=== PATIENT | male | born 1950 | race Caucasian/White ===

== ENCOUNTER → 2016-07-31 | Outpatient (REF) | payer MEDICAID, OTHER | LOC: M LAB REF 12:57 | PROVIDERS: ATTEND Podiatrist Foot & Ankle Surgery | DX: L03.116 Cellulitis of left lower limb (principal) ==

== ENCOUNTER → 2016-08-08 | Outpatient (REF) | payer OTHER | LOC: M SFHCPLAZ 09:15 | PROVIDERS: ATTEND Surgery | DX: E11.621 Type 2 diabetes mellitus with foot ulcer (principal) ==

== ENCOUNTER 2016-08-10 14:24 | Emergency (ER) | payer OTHER ==
--- NOTE | 2016-08-10 16:10 | EDDOCDS ---
Nurse's Notes [facility] Name: Yong Khoury Age: 65 yrs Sex: Male : 1950 Arrival Date: 08/10/2016 Time: 14:24 Bed TR7 Private MD: Ernst Choe Diagnosis: Local infection of the skin and subcutaneous tissue, unspecified-Right Foot Presentation: 08/10 14:32 Presenting complaint: Patient states: Here to remove wound packing. R foot wound rs3 packing done by Dr. Lane on Thursday. He instructed him to remove packing in 2 days. Adult Sepsis Screening: The patient does not have new or worsening altered mentation. Patient's respiratory rate is less than 22. Systolic blood pressure is greater than 100. Patient has a qSOFA score of 0- Negative Sepsis Screen. Suicide/Homicide risk assessment- the patient denies having any suicidal and/or homicidal ideations and does not present with any other emotional, behavioral or mental health complaints. Status: Patient is not a tax services specialist or dependent. Transition of care: patient was not received from another setting of care. 14:32 Acuity: DAISY Level 4 rs3 14:32 Method Of Arrival: Walkin/Carried/Asstd rs3 Triage Assessment: 14:36 General: Appears in no apparent distress. Pain: Location: right foot. HIV screening NA rs3 for this visit Offered previously. Historical: - Allergies: Ibuprofen (Rash); Strawberries; - Home Meds: 1. atorvastatin 80 mg oral tab 1 tab once daily 2. amlodipine 2.5 mg Oral tab 1 tab once daily 3. metformin 500 mg Oral Tb24 1 tab 2 times per day 4. trazodone 50 mg Oral tab nightly 5. aspirin 325 mg Oral tab once daily 6. gabapentin 300 mg Oral tab three times a day - PMHx: Diabetes - NIDDM: controlled; neuropathy; Hypertension; Right foot osteonecrosis; - PSHx: Right inguinal hernia repair; Tonsillectomy; - Social history: Smoking status: Patient uses tobacco products, heavy tobacco smoker. No barriers to communication noted, The patient speaks fluent Greenlandic. - : The pt / caregiver states he / she is not on anticoagulants. Home medication list is obtained from the patient. - Exposure Risk Screening:: None identified. Screenin:07 Screening information is obtained from the patient. Fall risk: At risk due to gait jjr disturbance, The following interventions are performed due to a positive Fall Risk Screen: added to special handling. Assistance ADL's: requires no assistance with activities of daily living. Abuse/DV Screen: The patient / caregiver reports he/she is: not in a situation that causes fear, pain or injury. Nutritional screening: No deficits noted. Advance Directives: Further advance directive information is declined. home support is adequate. Assessment: 15:57 General: Appears in no apparent distress, Behavior is appropriate for age, 1 cm x 0.5 jjr cm open wound on lateral side of right foot near fifth toe, entire foot swollen with 1+ edema, no red streaking noted. Vital Signs: 14:26 BP 148 / 66; Pulse 75; Resp 18 S; Temp 98.3(O); Pulse Ox 99% on R/A; Weight 68.04 kg dd6 (R); Height 5 ft. 3 in. (160.02 cm) (R); 14:26 Body Mass Index 26.57 (68.04 kg, 160.02 cm) dd6 Vitals: 14:26 Log In Time: August 10, 2016 at 14:24. dd6 ED Course: 14:25 Patient visited by Shiva Herzog PCA. dd6 14:25 Ernst Choe MD is Private Physician. dd6 14:25 Patient moved to Waiting dd6 14:28 Patient moved to Pre RCE dd6 14:35 Triage Initiated rs3 15:35 Patient moved to Triage 2 ar3 15:44 [facility] ef1 15:44 Liliya Mitchell MD is Attending Physician. ef1 15:44 Patient visited by Sharon Yang PA-C. ef1 15:58 The patient / caregiver is instructed regarding the plan of care and ED course. jjr 15:59 Ernst Choe MD is Referral Physician. ef1 16:05 Patient moved to TR7 ar3 16:07 [facility] Payment Agreement was scanned into [employer] and attached to record. ks16 16:08 No IV's were initiated during this patient's visit. No procedures done that require jjr assistance. Order Results: There are currently no results for this order. Outcome: 15:59 Discharge ordered by Provider. ef1 16:08 Discharge Assessment: patient administered narcotics - no. The following High Risk jjr Discharge criteria are identified: None. Discharged to home ambulatory. Condition: stable. Discharge instructions given to patient, Instructed on discharge instructions, follow up and referral plans. Demonstrated understanding of instructions. No special radiology studies were completed. Property sent home with patient. 16:09 Patient left the ED. jjr Signatures: Марина Raman RN RN jjr Shiva Herzog, SALES STORE CHECKER SALES STORE CHECKER dd6 Sharon Yang PA-C PA-C ef1 Monica Paiz RN RN rs3 Pippa Canas, SALES STORE CHECKER SALES STORE CHECKER ar3 Sue Cesar, Reg Reg ks16 MTDD
--- NOTE | 2016-08-10 16:10 | EDDOCDS ---
Physician Documentation [facility] Name: Yong Khoury Age: 65 yrs Sex: Male : 1950 Arrival Date: 08/10/2016 Time: 14:24 Bed TR7 Private MD: Ernst Choe Disposition: 08/10/16 15:59 Discharged to Home/Self Care. Impression: Local infection of the skin and subcutaneous tissue, unspecified - Right Foot. - Condition is Stable. - Medication Reconciliation, Local Pharmacy Hours form. - Follow up: Ernst Choe; When: 1 - 2 days; Reason: Recheck today's complaints, Continuance of care. Follow up: Emergency Department; Reason: Worsening of conditions. - Problem is new. - Symptoms have improved. Historical: - Allergies: Ibuprofen (Rash); Strawberries; - Home Meds: 1. atorvastatin 80 mg oral tab 1 tab once daily 2. amlodipine 2.5 mg Oral tab 1 tab once daily 3. metformin 500 mg Oral Tb24 1 tab 2 times per day 4. trazodone 50 mg Oral tab nightly 5. aspirin 325 mg Oral tab once daily 6. gabapentin 300 mg Oral tab three times a day - PMHx: Diabetes - NIDDM: controlled; neuropathy; Hypertension; Right foot osteonecrosis; - PSHx: Right inguinal hernia repair; Tonsillectomy; - Social history: Smoking status: Patient uses tobacco products, heavy tobacco smoker. No barriers to communication noted, The patient speaks fluent Wolof. - : The pt / caregiver states he / she is not on anticoagulants. Home medication list is obtained from the patient. - Exposure Risk Screening:: None identified. Vital Signs: 08/10 14:26 BP 148 / 66; Pulse 75; Resp 18 S; Temp 98.3(O); Pulse Ox 99% on R/A; Weight 68.04 kg / dd6 150 lbs (R); Height 5 ft. 3 in. (160.02 cm) (R); 14:26 Body Mass Index 26.57 (68.04 kg, 160.02 cm) dd6 MDM: 16:00 ECG WITH READING ER PHYS+CARDIAG ordered. EDMS 16:02 Dressing ordered. ef1 16:02 Misc. Nursing Order ordered. ef1 16:05 Financial registration complete. ks16 16:07 [facility] Payment Agreement was scanned into [employer] and attached to record. ks16 Signatures: Dispatcher [employer] Марина Wylie RN RN Sharon Rankin, NETO DUQUE ef1 Monica Paiz RN RN rs3 Sue Cesar, Reg Reg ks16 The chart was reviewed and I authenticate all verbal orders and agree with the evaluation and treatment provided.Attachments: 16:07 [facility] Payment Agreement ks16 MTDD
--- NOTE | 2016-08-12 17:11 | EDDOCDS ---
Nurse's Notes [facility] Name: Yong Khoury Age: 65 yrs Sex: Male : 1950 Arrival Date: 08/10/2016 Time: 14:24 Bed TR7 Private MD: Ernst Choe Diagnosis: Local infection of the skin and subcutaneous tissue, unspecified-Right Foot Presentation: 08/10 14:32 Presenting complaint: Patient states: Here to remove wound packing. R foot wound rs3 packing done by Dr. Lane on Thursday. He instructed him to remove packing in 2 days. Adult Sepsis Screening: The patient does not have new or worsening altered mentation. Patient's respiratory rate is less than 22. Systolic blood pressure is greater than 100. Patient has a qSOFA score of 0- Negative Sepsis Screen. Suicide/Homicide risk assessment- the patient denies having any suicidal and/or homicidal ideations and does not present with any other emotional, behavioral or mental health complaints. 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 Transition of care: patient was not received from another setting of care. 14:32 Acuity: DAISY Level 4 rs3 14:32 Method Of Arrival: Walkin/Carried/Asstd rs3 Triage Assessment: 14:36 General: Appears in no apparent distress. Pain: Location: right foot. HIV screening NA rs3 for this visit Offered previously. Historical: - Allergies: Ibuprofen (Rash); Strawberries; - Home Meds: 1. atorvastatin 80 mg oral tab 1 tab once daily 2. amlodipine 2.5 mg Oral tab 1 tab once daily 3. metformin 500 mg Oral Tb24 1 tab 2 times per day 4. trazodone 50 mg Oral tab nightly 5. aspirin 325 mg Oral tab once daily 6. gabapentin 300 mg Oral tab three times a day - PMHx: Diabetes - NIDDM: controlled; neuropathy; Hypertension; Right foot osteonecrosis; - PSHx: Right inguinal hernia repair; Tonsillectomy; - Social history: Smoking status: Patient uses tobacco products, heavy tobacco smoker. No barriers to communication noted, The patient speaks fluent Bulgarian. - : The pt / caregiver states he / she is not on anticoagulants. Home medication list is obtained from the patient. - Exposure Risk Screening:: None identified. Screenin:07 Screening information is obtained from the patient. Fall risk: At risk due to gait jjr disturbance, The following interventions are performed due to a positive Fall Risk Screen: added to special handling. Assistance ADL's: requires no assistance with activities of daily living. Abuse/DV Screen: The patient / caregiver reports he/she is: not in a situation that causes fear, pain or injury. Nutritional screening: No deficits noted. Advance Directives: Further advance directive information is declined. home support is adequate. Assessment: 15:57 General: Appears in no apparent distress, Behavior is appropriate for age, 1 cm x 0.5 jjr cm open wound on lateral side of right foot near fifth toe, entire foot swollen with 1+ edema, no red streaking noted. Vital Signs: 14:26 BP 148 / 66; Pulse 75; Resp 18 S; Temp 98.3(O); Pulse Ox 99% on R/A; Weight 68.04 kg dd6 (R); Height 5 ft. 3 in. (160.02 cm) (R); 14:26 Body Mass Index 26.57 (68.04 kg, 160.02 cm) dd6 Vitals: 14:26 Log In Time: August 10, 2016 at 14:24. dd6 ED Course: 14:25 Patient visited by Shiva Herzog PCA. dd6 14:25 Ernst Choe MD is Private Physician. dd6 14:25 Patient moved to Waiting dd6 14:28 Patient moved to Pre RCE dd6 14:35 Triage Initiated rs3 15:35 Patient moved to Triage 2 ar3 15:44 [facility] ef1 15:44 Liliya Mitchell MD is Attending Physician. ef1 15:44 Patient visited by Sharon Yang PA-C. ef1 15:58 The patient / caregiver is instructed regarding the plan of care and ED course. jjr 15:59 Ernst Choe MD is Referral Physician. ef1 16:05 Patient moved to TR7 ar3 16:07 [facility] Payment Agreement was scanned into [employer] and attached to record. ks16 16:08 No IV's were initiated during this patient's visit. No procedures done that require jjr assistance. 22:38 T-Sheet-- Draft Copy was scanned into [employer] and attached to record. klr Order Results: There are currently no results for this order. Outcome: 15:59 Discharge ordered by Provider. ef1 16:08 Discharge Assessment: patient administered narcotics - no. The following High Risk jjr Discharge criteria are identified: None. Discharged to home ambulatory. Condition: stable. Discharge instructions given to patient, Instructed on discharge instructions, follow up and referral plans. Demonstrated understanding of instructions. No special radiology studies were completed. Property sent home with patient. 16:09 Patient left the ED. jjr Signatures: Марина Raman, RN RN jjr Shiva Herzog, PROPERTY PRESERVATION SPECIALIST PROPERTY PRESERVATION SPECIALIST dd6 Sharon Yang PAAustin PA-C ef1 Monica Paiz RN RN rs3 Pippa Canas, PROPERTY PRESERVATION SPECIALIST PROPERTY PRESERVATION SPECIALIST ar3 Sue Cesar, Reg Reg ks16 Josee Crook Chart Complete MTDD
--- NOTE | 2016-08-12 17:11 | EDDOCDS ---
Physician Documentation [facility] Name: Yong Khoury Age: 65 yrs Sex: Male : 1950 Arrival Date: 08/10/2016 Time: 14:24 Bed TR7 Private MD: Ernst Choe Disposition: 08/10/16 15:59 Discharged to Home/Self Care. Impression: Local infection of the skin and subcutaneous tissue, unspecified - Right Foot. - Condition is Stable. - Medication Reconciliation, Local Pharmacy Hours form. - Follow up: Ernst Choe; When: 1 - 2 days; Reason: Recheck today's complaints, Continuance of care. Follow up: Emergency Department; Reason: Worsening of conditions. - Problem is new. - Symptoms have improved. Historical: - Allergies: Ibuprofen (Rash); Strawberries; - Home Meds: 1. atorvastatin 80 mg oral tab 1 tab once daily 2. amlodipine 2.5 mg Oral tab 1 tab once daily 3. metformin 500 mg Oral Tb24 1 tab 2 times per day 4. trazodone 50 mg Oral tab nightly 5. aspirin 325 mg Oral tab once daily 6. gabapentin 300 mg Oral tab three times a day - PMHx: Diabetes - NIDDM: controlled; neuropathy; Hypertension; Right foot osteonecrosis; - PSHx: Right inguinal hernia repair; Tonsillectomy; - Social history: Smoking status: Patient uses tobacco products, heavy tobacco smoker. No barriers to communication noted, The patient speaks fluent Lithuanian. - : The pt / caregiver states he / she is not on anticoagulants. Home medication list is obtained from the patient. - Exposure Risk Screening:: None identified. Vital Signs: 08/10 14:26 BP 148 / 66; Pulse 75; Resp 18 S; Temp 98.3(O); Pulse Ox 99% on R/A; Weight 68.04 kg / dd6 150 lbs (R); Height 5 ft. 3 in. (160.02 cm) (R); 14:26 Body Mass Index 26.57 (68.04 kg, 160.02 cm) dd6 MDM: 16:00 ECG WITH READING ER PHYS+CARDIAG ordered. EDMS 16:02 Dressing ordered. ef1 16:02 Misc. Nursing Order ordered. ef1 16:05 Financial registration complete. ks16 16:07 [facility] Payment Agreement was scanned into [employer] and attached to record. ks16 22:38 T-Sheet-- Draft Copy was scanned into [employer] and attached to record. klr Signatures: Dispatcher [employer] Марина Wylie, Sharon Garces RN, PAAustin PAAustin ef1 Monica Paiz RN RN rs3 Sue Cesar, Reg Reg ks16 Josee Crook klr The chart was reviewed and I authenticate all verbal orders and agree with the evaluation and treatment provided.Attachments: 16:07 [facility] Payment Agreement ks16 22:38 T-Sheet-- Draft Copy klr Chart Complete MTDD
--- NOTE | 2016-08-12 17:11 | EDDOCDS ---
Physician Documentation [facility] Name: Yong Khoury Age: 65 yrs Sex: Male : 1950 Arrival Date: 08/10/2016 Time: 14:24 Bed TR7 Private MD: Ernst Choe Disposition: 08/10/16 15:59 Discharged to Home/Self Care. Impression: Local infection of the skin and subcutaneous tissue, unspecified - Right Foot. - Condition is Stable. - Medication Reconciliation, Local Pharmacy Hours form. - Follow up: Ernst Choe; When: 1 - 2 days; Reason: Recheck today's complaints, Continuance of care. Follow up: Emergency Department; Reason: Worsening of conditions. - Problem is new. - Symptoms have improved. Historical: - Allergies: Ibuprofen (Rash); Strawberries; - Home Meds: 1. atorvastatin 80 mg oral tab 1 tab once daily 2. amlodipine 2.5 mg Oral tab 1 tab once daily 3. metformin 500 mg Oral Tb24 1 tab 2 times per day 4. trazodone 50 mg Oral tab nightly 5. aspirin 325 mg Oral tab once daily 6. gabapentin 300 mg Oral tab three times a day - PMHx: Diabetes - NIDDM: controlled; neuropathy; Hypertension; Right foot osteonecrosis; - PSHx: Right inguinal hernia repair; Tonsillectomy; - Social history: Smoking status: Patient uses tobacco products, heavy tobacco smoker. No barriers to communication noted, The patient speaks fluent Romanian. - : The pt / caregiver states he / she is not on anticoagulants. Home medication list is obtained from the patient. - Exposure Risk Screening:: None identified. Vital Signs: 08/10 14:26 BP 148 / 66; Pulse 75; Resp 18 S; Temp 98.3(O); Pulse Ox 99% on R/A; Weight 68.04 kg / dd6 150 lbs (R); Height 5 ft. 3 in. (160.02 cm) (R); 14:26 Body Mass Index 26.57 (68.04 kg, 160.02 cm) dd6 MDM: 16:00 ECG WITH READING ER PHYS+CARDIAG ordered. EDMS 16:02 Dressing ordered. ef1 16:02 Misc. Nursing Order ordered. ef1 16:05 Financial registration complete. ks16 16:07 [facility] Payment Agreement was scanned into [employer] and attached to record. ks16 22:38 T-Sheet-- Draft Copy was scanned into [employer] and attached to record. klr Signatures: Dispatcher [employer] Марина Wylie, Sharon Garces RN, PAAustin PAAustin ef1 Monica Paiz RN RN rs3 Sue Cesar, Reg Reg ks16 Josee Crook klr The chart was reviewed and I authenticate all verbal orders and agree with the evaluation and treatment provided.Attachments: 16:07 [facility] Payment Agreement ks16 22:38 T-Sheet-- Draft Copy klr Chart Complete MTDD
== END 2016-08-10 16:09 | disposition home or self-care (01) ==
LOC: M ED 14:24
DX: Z48.00 Encounter for change or removal of nonsurgical wound dressing (principal); L08.9 Local infection of the skin and subcutaneous tissue, unspecified; E11.9 Type 2 diabetes mellitus without complications; G62.9 Polyneuropathy, unspecified; I10 Essential (primary) hypertension; M87.874 Other osteonecrosis, right foot; Z79.899 Other long term (current) drug therapy; Z79.84 Long term (current) use of oral hypoglycemic drugs; Z79.82 Long term (current) use of aspirin; Z88.6 Allergy status to analgesic agent; Z91.018 Allergy to other foods; F17.210 Nicotine dependence, cigarettes, uncomplicated

== ENCOUNTER → 2016-08-15 | Outpatient (REF) | payer OTHER, MEDICAID ==
[2016-08-15 17:14] LABS: ALBUMIN 4.3 GM/DL (3.2-5.2); ALKALINE PHOSPHATASE 67 U/L (45-117); ALT/SGPT 29 U/L (12-78); ANION GAP 5 MEQ/L (8-16); AST/SGOT 18 U/L (15-37); BILIRUBIN,TOTAL 0.3 MG/DL (0.2-1.0); BLOOD UREA NITROGEN 18 MG/DL (7-18); CALCIUM LEVEL 10.1 MG/DL (8.8-10.2); CARBON DIOXIDE LEVEL 30 MEQ/L (21-32); CHLORIDE LEVEL 106 MEQ/L (98-107); CREATININE FOR GFR 0.91 MG/DL (0.70-1.30); GLOMERULAR FILTRATION RATE > 60.0 (>49); GLUCOSE, FASTING 111 MG/DL (80-110); SODIUM LEVEL 141 MEQ/L (136-145); TOTAL PROTEIN 7.6 GM/DL (6.4-8.2)
[2016-08-15 17:40] LABS: POTASSIUM SERUM 5.5 MEQ/L (3.5-5.1)
[2016-08-15 18:20] LABS: MEAN CORPUSCULAR HGB CONC 31.9 g/dl (32.0-36.5); MEAN CORPUSCULAR VOLUME 87.8 fl (80.0-96.0); RED CELL DISTRIBUTION WIDTH 14.8 % (11.5-14.5); WHITE BLOOD COUNT 9.7 K/mm3 (4.0-10.0)
== END ==
LOC: M LAB REF 16:45
PROVIDERS: ATTEND Surgery
DX: E11.621 Type 2 diabetes mellitus with foot ulcer (principal)

== ENCOUNTER → 2016-08-18 | Outpatient (CLI) | payer OTHER ==
--- NOTE | 2016-08-18 13:43 | ECGEPIP ---
Stationary ECG Study [facility] Test Date: 2016-08-18 Pat Name: JORDAN MCKEON Department: Room: - Gender: M Member Of Parliament: : 1950 Requested By: Barron Og Order Number: [id number] Reading MD: Viviana Corea Measurements Intervals [place] Rate: 78 P: 62 CO: 128 QRS: 71 QRSD: 101 T: 46 QT: 356 QTc: 407 Interpretive Statements SINUS RHYTHM sTABLE C/W 04/15/16 Electronically Signed On 08-18-2016 13:42:56 EST by Viviana Corea
--- NOTE | 2016-08-19 03:03 | REP ---
Clinical: Chest pain with history of smoking. Technique: PA and lateral. Comparison: None. Findings: A vague area of opacity involving the right middle lobe/medial right lower lobe cannot be excluded. The remainder of lung hallman demonstrate chronic-appearing changes. Surgical clips overlie the right upper lung zone. Mediastinum and cardiac silhouette are normal. Skeletal structures are intact. Impression: Cannot exclude subtle medial right lower lobe/right middle lobe opacity. Consider chest CT for further investigation. Signed by Stephen Pierce MD 08/19/2016 02:54 A
== END ==
LOC: M EKG 12:25
PROVIDERS: ATTEND Surgery
DX: F17.200 Nicotine dependence, unspecified, uncomplicated (principal)

== ENCOUNTER → 2016-09-04 | Outpatient (CLI) | payer OTHER ==
[~2016-09-04] MED LIST: ISOVUE-370 76% 100ML VIAL (Q9967) As Ordered ONE
--- NOTE | 2016-09-04 09:19 | REP ---
CT ANGIOGRAM ABDOMINAL ARTERIES AND RUNOFF: 09/04/2016, Comparison: 04/17/2016. Clinical history: Osteomyelitis right fifth toe with axillary-femoral artery bypass. Peripheral vascular disease. Technique: Bolus of 100 mL Isovue 370 with scanning through the abdomen, pelvis and lower extremities. Coronal and sagittal reconstructions with MIP thick slab reformats also performed. Findings: CT abdomen: The lung bases show some dependent atelectatic changes bilaterally. Heart unchanged. There is left atrial enlargement. No pericardial thickening or effusion. I see no hiatal hernia. There is no hepatosplenomegaly, focal hepatic or splenic mass nor intrahepatic biliary dilatation. Gallbladder is much better distended than on the previous study. There is an irregular 2.1 x 1.5 x 1.6 cm soft tissue density. This may be sludge or debris. The tiny calcification is seen in its margin at the wall, it could also be gallbladder wall mass. Common duct is mildly prominent in the arik hepatis and pancreatic head without a calcified stone within. It appears to taper normally. Pancreas intact. This is a cyst off the upper pole of the left kidney up to 2.5 cm, interpolar cyst left kidney 1.6 cm. No hydronephrosis. Small bowel loops and colon were grossly intact. I see no free air or perforation. Adrenal glands are unchanged. Small nodules on both about 12 mm on the left, 9 mm on the right. Bone windows show degenerative disc and facet changes lower lumbar spine. Thoracic spine with minor degenerative changes. Visualized ribs without destructive lesion. CT pelvis. Bladder shows no wall thickening, mass or stone. Prostate slightly indents the bladder base and is minimally enlarged. Distal left colon, sigmoid and rectum are unremarkable. Small bowel loops in the deep pelvis intact. The appendix is seen and normal. No bladder wall mass, stone or other acute finding. There is no ventral or inguinal hernia nor pathologic sized inguinal adenopathy. Since the previous study, there has been a right-sided axillary femoral and cross femoral bypass graft placed. Abundant contrast is seen within it. There is no inguinal adenopathy, inguinal or ventral hernia. The bony hips, pelvis, sacrum, SI joints show only minimal degenerative change without destructive lesion. CT aortogram: There is atherosclerotic calcification of the aorta with some mild distal stenosis at the bifurcation. The celiac axis and SMA show no stenosis at their origins. Renal artery shows some atherosclerotic plaque at the origin on the right and mid course of the left without significant stenosis. There is an MARNIE. There is atherosclerotic plaque and some stenosis of the common iliac artery on the right and tight stenosis of the common iliac artery on the left which is almost completely filled with plaque. This appearance is unchanged. There is flow in both internal iliac arteries, right more than left, unchanged. Common femoral arteries are tightly stenotic. The axillary femoral graft extends to the right common femoral artery. That artery is occluded with flow through collaterals via the profunda femoris reconstituting it weakly. Cross femoral graft extends to the left common femoral artery which has stenosis and plaque as does the profunda femoris artery. Lower extremity runoff arteriogram: Deep right thigh femoral branches poorly reconstitute the femoral artery in the right thigh distally at the popliteal artery. The posterior tibial artery is seen extending to the ankle with scattered plaques. Poor flow in the anterior tibial and almost no flow in the peroneal artery. The left thigh shows a patent femoral artery, popliteal artery to the trifurcation. Flow to the ankle is reached by the posterior tibial artery on the left. Impression: 1. Axillary-femoral and cross femoral grafts noted. There is still significant stenosis of the right femoral artery with poor reconstitution distally at the popliteal not much changed from the previous study with runoff to the ankle through only the posterior tibial artery on the right. 2. Left femoral popliteal artery are patent with scattered atherosclerotic plaques and runoff to the ankle via a left posterior tibial artery as before. 3. Extensive atherosclerotic plaque distal aorta with occlusion of the common iliac artery and extensive atherosclerotic plaque. There is a significant stenosis without occlusion of the right common femoral artery. 4. The CT abdomen and pelvis images show potentially significant abnormality in the gallbladder which needs further evaluation. A 2 cm irregular soft tissue density in the dependent wall may be inspissated sludge but has irregular shape, and I cannot exclude a mass of the gallbladder wall. Gallbladder ultrasound strongly recommended. Malignancy is not excluded. Signed by Duglas Romero MD 09/04/2016 01:17 P
== END ==
LOC: M RAD 07:12
PROVIDERS: ATTEND Surgery
DX: M86.19 Other acute osteomyelitis, multiple sites (principal)

== ENCOUNTER → 2016-10-07 | Outpatient (CLI) | payer OTHER ==
--- NOTE | 2016-10-07 10:11 | REP ---
LIMITED ABDOMINAL ULTRASOUND: 10/07/2016. Comparison: CT abdomen 09/04/2016. Clinical history: Fundal filling defect in the gallbladder on recent CT. Findings: Sonographic evaluation shows the liver with fairly homogeneous hyperechoic echotexture suggesting fatty change. There is some focal fat sparing adjacent to the gallbladder fossa which is the usual location for that common finding. No gross hepatic mass. No intrahepatic ductal dilatation. Common bile duct is 8.9 mm which is in the upper range of normal in this age group. The gallbladder is adequately distended. There is a mobile echogenic focus 2.2 x 1.7 x 1.7 cm suggesting a sludge ball. It has some shadowing. Only a faint calcification within it on CT. Wall thickness is normal at 1.6 mm. There is no sonographic Will sign. Pancreas in its visualized portion was unremarkable. The tail obscured by gas shadowing. The right kidney is 11.6 x 5.2 x 5.5 cm. There is a upper pole cyst 2.9 x 2.4 x [address] No stones. There is no free fluid. Impression: 1. The irregular mobile echogenic and shadowing focus in the gallbladder 2.2 x 1.7 x 1.7 cm suggesting calcified or partially calcified sludge ball. This did not have typical rim calcification of a well-defined stone and had some irregular margins. 2. Sonographic Will sign is not present. There is no pericholecystic fluid or wall thickening. 3. Common bile duct 8.9 mm which is upper limits normal. No filling defect.4. Fatty liver change without focal mass or biliary dilatation. 5. Visualized portion of pancreas unremarkable. The right kidney shows only an exophytic cyst upper pole as on CT. Signed by Duglas Romero MD 10/07/2016 05:04 P
== END ==
LOC: M RAD 07:51
PROVIDERS: ATTEND Family Medicine
DX: R10.9 Unspecified abdominal pain (principal)

== ENCOUNTER → 2016-10-10 | Outpatient (REF) | payer OTHER, MEDICAID | LOC: M LAB REF 12:58 | PROVIDERS: ATTEND Surgery | DX: L97.519 Non-pressure chronic ulcer of other part of right foot with unspecified severity (principal) ==

== ENCOUNTER → 2016-10-16 | Outpatient (REF) | payer OTHER ==
[2016-10-16 15:39] LABS: BASO # 0.1 K/mm3 (0.0-0.2); BASO % 0.8 % (0.0-1.0); EOS # 0.3 K/mm3 (0.0-0.50); LARGE UNSTAINED CELL # 0.2 K/mm3 (0.0-0.4); LYMPH # 1.5 K/mm3 (1.5-4.5); MEAN CORPUSCULAR HEMOGLOBIN 29.6 pg (27.0-33.0); MEAN CORPUSCULAR HGB CONC 32.4 g/dl (32.0-36.5); MEAN CORPUSCULAR VOLUME 91.2 fl (80.0-96.0); MONO # 0.4 K/mm3 (0.0-0.8); MONO % 5.2 % (0.0-5.0); NEUTROPHILS % 70.9 % (36.0-66.0); PLATELET COUNT, AUTOMATED 223 k/mm3 (150-450); RED CELL DISTRIBUTION WIDTH 13.3 % (11.5-14.5); WHITE BLOOD COUNT 8.4 K/mm3 (4.0-10.0)
[2016-10-16 16:46] LABS: ERYTHROCYTE SEDIMENTATION RATE 19 mm/hr (0-20)
== END ==
LOC: M SFHCPLAZ 13:04
PROVIDERS: ATTEND Internal Medicine Infectious Disease
DX: M86.171 Other acute osteomyelitis, right ankle and foot (principal)

== ENCOUNTER → 2016-10-21 | Outpatient (CLI) | payer OTHER ==
--- NOTE | 2016-10-21 16:08 | REP ---
Right foot series: Two views: History: Acute osteomyelitis right ankle and foot. Comparison study: 04/15/2016. Findings: There is cortical bony erosive change again noted along the lateral aspect of the distal end of the fifth metatarsal consistent with osteomyelitis. This is somewhat more pronounced than on the 04/15/2016 prior study. Similarly, there is progressive erosive change at the base of the proximal phalanx of the 5th toe. Some adjacent soft tissue swelling and distal forefoot swelling is seen. No soft tissue gas is seen. No opaque foreign body is seen. Impression: Progressive erosive change in the distal end of the 5th metatarsal and in the proximal end of the 5th proximal phalanx. Findings compatible with osteomyelitis at these sites. Some soft tissue swelling. Signed by Santiago Chavez MD 10/21/2016 04:20 P
== END ==
LOC: M RAD 11:52
PROVIDERS: ATTEND Internal Medicine Infectious Disease
DX: M86.171 Other acute osteomyelitis, right ankle and foot (principal)

== ENCOUNTER → 2017-01-05 | Outpatient (REF) | payer OTHER ==
[2017-01-05 18:53] LABS: ANION GAP 7 MEQ/L (8-16); BLOOD UREA NITROGEN 16 MG/DL (7-18); CALCIUM LEVEL 9.7 MG/DL (8.8-10.2); CARBON DIOXIDE LEVEL 28 MEQ/L (21-32); CHLORIDE LEVEL 102 MEQ/L (98-107); CREATININE FOR GFR 0.99 MG/DL (0.70-1.30); GLOMERULAR FILTRATION RATE > 60.0 (>49); GLUCOSE, FASTING 81 MG/DL (80-110); POTASSIUM SERUM 4.4 MEQ/L (3.5-5.1); SODIUM LEVEL 137 MEQ/L (136-145)
== END ==
LOC: M SFHCPLAZ 15:21
PROVIDERS: ATTEND Family Medicine
DX: E11.42 Type 2 diabetes mellitus with diabetic polyneuropathy (principal)

== ENCOUNTER → 2017-02-03 | Outpatient (REF) | payer OTHER ==
[~2017-02-03] MED LIST changes: +ASPI325T24 PO; +ATOR80TA59 PO; +BACT800T5 PO; +GABA600T PO; +HYDR-3713 PO; -ISOVUE-370 76% 100ML VIAL (Q9967) As Ordered ONE; +METF10004 PO; +TERB250T12 PO; +TRAZ50TA11 PO; +TYLE500T78 PO
[2017-02-03 14:23] LABS: ALBUMIN 3.9 GM/DL (3.2-5.2); ALBUMIN/GLOBULIN RATIO 1.22 (1.00-1.93); BILIRUBIN,DIRECT 0.1 MG/DL (0.0-0.2); BILIRUBIN,TOTAL 0.3 MG/DL (0.2-1.0); TOTAL PROTEIN 7.1 GM/DL (6.4-8.2)
== END ==
LOC: M SFHCPLAZ 11:06
PROVIDERS: ATTEND Family Medicine
DX: B35.1 Tinea unguium (principal)

== ENCOUNTER → 2017-03-20 | Outpatient (REF) | payer OTHER ==
[2017-03-20 13:51] LABS: ALBUMIN 4.2 GM/DL (3.2-5.2); ALBUMIN/GLOBULIN RATIO 1.24 (1.00-1.93); ALKALINE PHOSPHATASE 94 U/L (45-117); ALT/SGPT 26 U/L (12-78); AST/SGOT 10 U/L (15-37); BILIRUBIN,DIRECT < 0.1 MG/DL (0.0-0.2); BILIRUBIN,TOTAL 0.3 MG/DL (0.2-1.0); CHOLESTEROL LEVEL 128 MG/DL (<200); TOTAL PROTEIN 7.6 GM/DL (6.4-8.2); TRIGLYCERIDES LEVEL 84 MG/DL (<150)
== END ==
LOC: M SFHCPLAZ 09:22
PROVIDERS: ATTEND Family Medicine
DX: I73.9 Peripheral vascular disease, unspecified (principal); B35.1 Tinea unguium

== ENCOUNTER → 2017-04-14 | Outpatient (CLI) | payer OTHER ==
[2017-04-14 09:50] LABS: MEAN CORPUSCULAR HEMOGLOBIN 29.4 pg (27.0-33.0); MEAN CORPUSCULAR HGB CONC 32.5 g/dl (32.0-36.5); MEAN CORPUSCULAR VOLUME 90.5 fl (80.0-96.0); RED CELL DISTRIBUTION WIDTH 13.8 % (11.5-14.5); WHITE BLOOD COUNT 10.1 10^3/uL (4.0-10.0)
[2017-04-14 11:14] LABS: ANION GAP 3 MEQ/L (8-16); BLOOD UREA NITROGEN 13 MG/DL (7-18); CALCIUM LEVEL 9.8 MG/DL (8.8-10.2); CARBON DIOXIDE LEVEL 31 MEQ/L (21-32); CHLORIDE LEVEL 105 MEQ/L (98-107); CREATININE FOR GFR 1.05 MG/DL (0.70-1.30); GLOMERULAR FILTRATION RATE > 60.0 (>49); GLUCOSE, FASTING 186 MG/DL (80-110); POTASSIUM SERUM 5.1 MEQ/L (3.5-5.1); SODIUM LEVEL 139 MEQ/L (136-145)
--- NOTE | 2017-04-14 11:16 | REP ---
CHEST X-RAY: TWO VIEWS. HISTORY: Preoperative testing. COMPARISON CHEST X-RAY: August 18, 2016 FINDINGS: There are surgical clips overlying the right anterior chest wall, unchanged. The lungs are well inflated and clear. Pleural angles are sharp. Heart size is normal. There are mild degenerative disc changes in the thoracic spine. IMPRESSION: No acute disease. Signed by Santiago Chavez MD 04/14/2017 03:30 P
--- NOTE | 2017-04-14 20:17 | ECGEPIP ---
Stationary ECG Study [facility] Test Date: 2017-04-14 Pat Name: JORDAN MCKEON Department: Room: - Gender: M Medical Practice Manager: : 1950 Requested By: ALONSO Pedraza Order Number: [id number] Reading MD: Yvonne Oneal Measurements Intervals [place] Rate: 67 P: 54 SC: 142 QRS: 57 QRSD: 94 T: 49 QT: 391 QTc: 415 Interpretive Statements SINUS RHYTHM POSSIBLE LEFT ATRIAL ENLARGEMENT NO CHANGE 08/18/16 Electronically Signed On 04-14-2017 20:17:15 EDT by Yvonne Oneal
== END ==
LOC: M LAB 09:18
PROVIDERS: ATTEND Podiatrist Foot & Ankle Surgery
DX: Z00.00 Encounter for general adult medical examination without abnormal findings (principal)

== ENCOUNTER → 2017-04-17 | Outpatient (REF) | payer OTHER ==
[2017-04-17 14:58] LABS: ALBUMIN 4.3 GM/DL (3.2-5.2); ALBUMIN/GLOBULIN RATIO 1.16 (1.00-1.93); BILIRUBIN,DIRECT 0.2 MG/DL (0.0-0.2); BILIRUBIN,TOTAL 0.5 MG/DL (0.2-1.0)
== END ==
LOC: M SFHCPLAZ 11:26
PROVIDERS: ATTEND Family Medicine
DX: B35.1 Tinea unguium (principal); E11.52 Type 2 diabetes mellitus with diabetic peripheral angiopathy with gangrene

== ENCOUNTER 2017-04-29 07:56 | Day surgery (SDC) | payer OTHER ==
[~2017-04-29] VITALS: Ht 160 cm; Wt 70.8 kg
[~2017-04-29 07:56] MED LIST changes: -BACT800T5 PO; -HYDR-3713 PO
[2017-04-29] MEDS ORDERED: dexameTHASONE 4 MG/ML 1ML VIAL (J1100) As Ordered ONE (07:58)
[2017-04-29] MEDS ORDERED: LIDOCAINE 1% MDV 20ML VIAL As Ordered ONE (07:58)
[2017-04-29] MEDS ORDERED: BUPIVACAINE HCL 0.5% 10 ML VIAL As Ordered ONE (07:59)
[2017-04-29] MEDS ORDERED: LR 500 ML IV ONE (08:00)
[2017-04-29] MEDS ORDERED: PROPOFOL 200 MG/20 ML VIAL As Ordered ONE (09:41)
[2017-04-29] MEDS ORDERED: LIDOCAINE 2% INJ 100 MG/5 ML SDV (FOR ANES.) As Ordered ONE (09:41)
[2017-04-29] MEDS ORDERED: MIDAZOLAM INJ 2 MG/2 ML VIAL (J2250) As Ordered ONE (09:42)
[2017-04-29] MEDS ORDERED: fentaNYL 100 MCG/2 ML INJECTION (J3010) As Ordered ONE (09:42)
[2017-04-29] MEDS ORDERED: BACT800T5 PO (11:07)
[2017-04-29] MEDS ORDERED: HYDR-3713 PO (11:07)
[2017-04-29] MEDS ORDERED: PERCOCET 5MG/325MG TAB PO PRN (11:30)
--- NOTE | 2017-04-29 12:15 | RO ---
DATE OF PROCEDURE: 04/29/2017 PREOPERATIVE DIAGNOSIS: Right 5th metatarsal osteomyelitis as well as osteomyelitis of the 5th toe. POSTOPERATIVE DIAGNOSIS: Right 5th metatarsal osteomyelitis as well as osteomyelitis of the 5th toe. PROCEDURE: Right 5th metatarsal head excision and excision of base of proximal phalanx. SURGEON: Dr. Alirio Goodwin CUT OFF SAWYER: None. ANESTHESIA: Monitored anesthesia care. Preoperative injection of 16 mL of 1:1 mixture of 1% lidocaine plain and 1/2% Marcaine plain. ESTIMATED BLOOD LOSS: Minimal. MATERIALS: #3-0 Vicryl, #4-0 nylon. INJECTABLES: None. COMPLICATIONS: None. CONDITION: Stable. SPECIMEN: Is right 5th metatarsal head and base of proximal phalanx. DESCRIPTION OF PROCEDURE: Yong Khoury is a 66-year-old male who presents today the hospital with ulceration and osteomyelitis to his right foot. He has had a longstanding ulceration adjacent to his right 5th metatarsal head. He had initially had improvement of the wound, but the wound has worsened and there has been bone exposed within this wound. X-rays were taken, which showed erosion of this bone. Decision was made to bring him to the operating room for excision of the metatarsal head. Patient site and side were identified and marked in preoperative holding area. Consent was reviewed and obtained. The risks, complications and alternatives to the procedure explained to patient in detail. Questions were answered. Patient was brought to the operating room and placed on the operating room in supine position. Monitored anesthesia care was delivered by the anesthesia team. Preoperative injection of 16 mL of 1:1 mixture of 1% lidocaine plain and 0.50% Marcaine plain were injected to the right foot. Right foot was prepped and draped in normal sterile fashion. Patient received Ancef preoperatively. A lateral incision was made surrounding the wound and extending into the base of the 5th toe, which was carried through with #15 blade. Dissection was carried down excising the wound in total and dissection was carried until the 5th metatarsal head was identified. This was noted to be exposed through the wound and to be soft in appearance at the most distal portion. A sagittal saw was used to resect the metatarsal head. The proximal part of the bone was firm without obvious signs of infection. The head of this bone was sent for pathology. Next, the base of the proximal phalanx was resected similarly with sagittal saw. This too was sent for pathology. Remaining necrotic tissue was debrided. Site was irrigated with saline and wound closure was performed with #3-0 Vicryl and #4-0 nylon. Sterile dressings were applied. Patient was brought to the postanesthesia care unit (PACU) with vital signs stable and neurovascular status intact. He will be weightbearing in a postoperative shoe with his walker. He will followup in office in 2 days. He will be discharged on oral Bactrim.
[2017-04-29 12:20] VITALS: BP 157/95
== END 2017-04-29 12:55 | disposition home or self-care (01) ==
LOC: M SDC 07:56
PROVIDERS: ATTEND Podiatrist Foot & Ankle Surgery
DX: M86.171 Other acute osteomyelitis, right ankle and foot (principal); E11.52 Type 2 diabetes mellitus with diabetic peripheral angiopathy with gangrene; L30.1 Dyshidrosis [pompholyx]; E78.5 Hyperlipidemia, unspecified; Z86.73 Personal history of transient ischemic attack (TIA), and cerebral infarction without residual deficits; Z79.899 Other long term (current) drug therapy; Z79.82 Long term (current) use of aspirin; Z87.891 Personal history of nicotine dependence

== ENCOUNTER → 2017-08-24 | Outpatient (REF) | payer OTHER ==
[2017-08-24 12:38] LABS: ESTIMATED AVERAGE GLUCOSE 157 MG/DL (60-110); HEMOGLOBIN A1c 7.1 %
[2017-08-24 12:41] LABS: ANION GAP 8 MEQ/L (8-16); BLOOD UREA NITROGEN 14 MG/DL (7-18); CALCIUM LEVEL 9.7 MG/DL (8.8-10.2); CARBON DIOXIDE LEVEL 29 MEQ/L (21-32); CHLORIDE LEVEL 105 MEQ/L (98-107); CHOLESTEROL LEVEL 95 MG/DL (<200); CHOLESTEROL RISK RATIO 2.065 (<5); CREATININE FOR GFR 1.11 MG/DL (0.70-1.30); GLOMERULAR FILTRATION RATE > 60.0 (>49); GLUCOSE, FASTING 243 MG/DL (70-100); HDL CHOLESTEROL 46 MG/DL (>40); NON-HDL-C 49 MG/DL; POTASSIUM SERUM 4.9 MEQ/L (3.5-5.1); SODIUM LEVEL 142 MEQ/L (136-145); TRIGLYCERIDES LEVEL 55 MG/DL (<150)
[2017-08-24 12:45] LABS: MALB URINE SIEMENS 37.5 MG/L
== END ==
LOC: M SFHCPLAZ 09:19
DX: E11.52 Type 2 diabetes mellitus with diabetic peripheral angiopathy with gangrene (principal); I73.9 Peripheral vascular disease, unspecified

== ENCOUNTER → 2017-11-30 | Outpatient (CLI) | payer MEDICARE, MEDICAID, OTHER | LOC: M RAD 08:23 | DX: I73.9 Peripheral vascular disease, unspecified (principal); Z87.891 Personal history of nicotine dependence | CPT/HCPCS: 76706 ==

== ENCOUNTER → 2018-03-11 | Outpatient (REF) | payer MEDICARE ==
[2018-03-11 13:29] LABS: ESTIMATED AVERAGE GLUCOSE 183 MG/DL (60-110)
[2018-03-12 12:38] LABS: HEPATITIS C VIRUS ABY INDEX 0.1 INDEX (<0.8)
== END ==
LOC: M SFHCPLAZ 11:39
DX: E11.52 Type 2 diabetes mellitus with diabetic peripheral angiopathy with gangrene (principal); Z11.59 Encounter for screening for other viral diseases
CPT/HCPCS: 83036

== ENCOUNTER → 2018-09-29 | Outpatient (CLI) | payer MEDICARE, MEDICAID ==
[~2018-09-29] MED LIST changes: -ASPI325T24 PO; +ASPI325T25 PO; +BACT800T5 PO; -GABA600T PO; +GABA600T4 PO; +HYDR-3713 PO; +TRAZ-160 PO; -TRAZ50TA11 PO
[2018-09-29 13:52] LABS: CREATININE FOR GFR 1.29 MG/DL (0.70-1.30); GLOMERULAR FILTRATION RATE 59.3 (>49)
== END ==
LOC: M LAB 12:20
PROVIDERS: ATTEND Surgery Vascular Surgery
DX: I70.235 Atherosclerosis of native arteries of right leg with ulceration of other part of foot (principal)

== ENCOUNTER → 2018-10-05 | Outpatient (CLI) | payer MEDICARE, MEDICAID ==
[2018-10-05 10:57] LABS: CREATININE FOR GFR 1.28 MG/DL (0.70-1.30); GLOMERULAR FILTRATION RATE 59.9 (>49)
== END ==
LOC: M LAB 09:30
PROVIDERS: ATTEND Surgery Vascular Surgery
DX: I70.513 Atherosclerosis of nonautologous biological bypass graft(s) of the extremities with intermittent claudication, bilateral legs (principal)

== ENCOUNTER → 2019-01-10 | Outpatient (REF) | payer MEDICARE ==
[~2019-01-10] MED LIST changes: +ASPI-255 PO; -ASPI325T25 PO; -TRAZ-160 PO; +TRAZ-252 PO
[2019-01-10 12:43] LABS: BLOOD UREA NITROGEN 22 MG/DL (7-18); CALCIUM LEVEL 9.4 MG/DL (8.8-10.2); CARBON DIOXIDE LEVEL 28 MEQ/L (21-32); CHLORIDE LEVEL 101 MEQ/L (98-107); CHOLESTEROL LEVEL 98 MG/DL (<200); CHOLESTEROL RISK RATIO 2.512 (<5); CREATININE FOR GFR 1.16 MG/DL (0.70-1.30); GLOMERULAR FILTRATION RATE > 60.0 (>49); GLUCOSE, FASTING 146 MG/DL (70-100); HDL CHOLESTEROL 39 MG/DL (>40); LDL CHOLESTEROL 45 MG/DL (<100); NON-HDL-C 59 MG/DL; POTASSIUM SERUM 4.4 MEQ/L (3.5-5.1); SODIUM LEVEL 137 MEQ/L (136-145); TRIGLYCERIDES LEVEL 68 MG/DL (<150)
[2019-01-10 12:57] LABS: HEMOGLOBIN A1c 8.8 %
[2019-01-10 14:19] LABS: CREATININE, URINE 91.4 MG/DL; MALB URINE SIEMENS 20.4 MG/L; MAU/CREAT RATIO 22.3 MCG/MG (0.0-30.0)
== END ==
LOC: M SFHCPLAZ 10:19
PROVIDERS: ATTEND Family Medicine
DX: E11.51 Type 2 diabetes mellitus with diabetic peripheral angiopathy without gangrene (principal); I73.9 Peripheral vascular disease, unspecified

== ENCOUNTER → 2019-02-28 | Outpatient (REF) | payer MEDICARE, MEDICAID | LOC: M LAB REF 17:21 | PROVIDERS: ATTEND Podiatrist Foot & Ankle Surgery | DX: L03.115 Cellulitis of right lower limb (principal) ==

== ENCOUNTER → 2019-03-02 | Outpatient (REF) | payer MEDICARE, MEDICAID ==
[~2019-03-02] MED LIST changes: +ASPI-161 PO; +ASPI81TAEC PO; +ATOR1TAB21 PO; +GABA-843 PO; +GLUC500T PO; +INSUDET SC; +KETO2SHA9 TOP; +LISI10TA4 PO; +NAPR220C14 PO; +NYST1POW9 TOP; +OXYC-517 PO; +SANT250O8 TOP; +TRAM50TA2 PO; +TRAZ-257 PO; +TRAZ1TAB12 PO
== END ==
LOC: M SFHCPLAZ 12:47
PROVIDERS: ATTEND Physician Assistant
DX: L97.519 Non-pressure chronic ulcer of other part of right foot with unspecified severity (principal)

== ENCOUNTER → 2019-03-08 | Outpatient (POV) | payer MEDICARE, MEDICAID ==
[~2019-03-08] VITALS: Ht 161.3 cm; Wt 68.0 kg
[2019-03-08 13:56] VITALS: BP 139/63
--- NOTE | 2019-03-09 10:41 | IRCOV ---
[facility] IR Consult Office Visit IR Consult Office Visit DATE: Mar 08, 2019 REASON FOR CONSULTATION/CHIEF COMPLAINT: Right Leg pain and ulcer right foot. HISTORY OF PRESENT ILLNESS: 68-year-old male smoker with diabetes and peripheral arterial disease status post axillofemoral bypass several years ago for nonhealing wounds. Presents with right leg pain and nonhealing ulcers for several months. Describes pain at rest. Doesn't walk much and denies intermitt ent claudication. Continues to smoke 2 cigarettes per day. Denies alcohol or drugs. Walks with a walker. No chest pain. No angina. No prior history of heart attacks. Has suffered a stroke and veers to the left when walking. ALLERGIES: Please see below. HOME MEDICATIONS: Please see below. PAST MEDICAL HISTORY: 1. Type 2 diabetes. 2. Hypertension. 3. Diabetic neuropathy. 4. Peripheral arterial disease. 5. Stroke. PAST SURGICAL HISTORY: 1. Axillofemoral bypass. FAMILY HISTORY: Coronary artery disease. SOCIAL HISTORY: Lives with a roommate. Somewhat independent with activities of daily living. REVIEW OF SYSTEMS: Otherwise negative. PHYSICAL EXAMINATION: VITAL SIGNS: Please see below. GENERAL APPEARANCE: Comfortable at rest. HEENT: No scleral icterus. RESPIRATORY: Symmetric breath sounds. CARDIOVASCULAR: Normal rate. ABDOMEN: Soft nontender. EXTREMITIES: Left lower extremity: No pitting edema. Pulses: Femoral 2+ popliteal 1+ AT/PT negative Right lower extremity: Pitting edema to the knee. Pulses: Femoral pulse 2+ popliteal 1+ AT/PT negative. NEUROLOGICAL: Alert and oriented. PSYCHIATRIC: Appropriate to circumstance. LABORATORY DATA: Please see below. Imaging: I personally reviewed the CT abdomen and pelvis with runoff performed in September 2018. At that time, the axillofemoral bypass was patent. The right proximal and mid SFA is patent but there is complete occlusion of the distal SFA/right popliteal artery with reconstitution of the distal popliteal artery. Thereafter 3 vessel runoff to the foot. On the left side there is occlusion of the distal superficial femoral artery with reconstitution of the popliteal artery and 3 vessel runoff to the foot. ASSESSMENT/PLAN: 68 male diabetic smoker with peripheral arterial disease worse on the right side associated with nonhealing wound and edema. Prior CTA confirms complete distal SFA/popliteal occlusion with distal reconstitution. Patient will need angiogram angioplasty and intervention to improve flow to the right lower extremity for wound healing. We discussed the risks and benefits of the procedure and I will schedule patient for the procedure to be done under monitored sedation. There is arterial disease on the left side but clinically nonsymptomatic. I spent 30 minutes in consultation with the patient. Thank you for this referral. Allergies Coded Allergies: MS - Troup (Unverified Allergy, Unknown, SWELLING, 04/15/16) MS - Ibuprofen (Unverified Adverse Reaction, Unknown, "SICK", 04/15/16) Home Medications Scheduled Aspirin (Aspirin EC), 325 MG PO DAILY, (Reported) Atorvastatin Calcium (Atorvastatin Calcium), PO QHS, (Reported) Gabapentin (Gabapentin), 600 MG PO TID, (Reported) Metformin HCl (Metformin HCl), PO BID, (Reported) Sulfamethoxazole/Trimethoprim (Bactrim Ds Tablet), 1 TAB PO BID Terbinafine HCl (Terbinafine HCl), PO DAILY, (Reported) Scheduled PRN Acetaminophen (Tylenol Extra Strength), 1,000 MG PO Q6HP PRN for PAIN, (Reported) Hydrocodone/Acetaminophen (Hydrocodone-Acetamin 5-325 mg), 1-2 TAB PO Q4HP PRN for PAIN Trazodone HCl (Trazodone HCl), PO QHSP PRN for INSOMNIA, (Reported) VS, I&O, 24H, Fishbone Vital Signs/I&O Vital Signs Date Time Temp Pulse Resp B/P (MAP) Pulse Ox O2 Delivery O2 Flow Rate FiO2 03/08/19 13:56 97.9 74 20 139/63 (88) 99 CARON JAMES MD Mar 09, 2019 10:41
== END ==
LOC: M IRPOV 13:18
PROVIDERS: ATTEND Radiology Diagnostic Radiology
DX: I70.238 Atherosclerosis of native arteries of right leg with ulceration of other part of lower leg (principal); I70.221 Atherosclerosis of native arteries of extremities with rest pain, right leg; I10 Essential (primary) hypertension; E11.51 Type 2 diabetes mellitus with diabetic peripheral angiopathy without gangrene; E11.40 Type 2 diabetes mellitus with diabetic neuropathy, unspecified; Z72.0 Tobacco use; Z95.820 Peripheral vascular angioplasty status with implants and grafts; Z86.73 Personal history of transient ischemic attack (TIA), and cerebral infarction without residual deficits

== ENCOUNTER → 2019-03-16 | Outpatient (CLI) | payer MEDICARE, MEDICAID ==
[~2019-03-16] MED LIST changes: -ASPI-161 PO; -ASPI81TAEC PO; -ATOR1TAB21 PO; -GABA-843 PO; -GLUC500T PO; +HEPARIN 1,000 UNITS/ML 10ML VIAL (FOR RADIOLOGY& DIALYSIS ONLY) As Ordered ONE; -INSUDET SC; +ISOVUE-300 61% 50ML VIAL (Q9967) As Ordered ONE; -KETO2SHA9 TOP; +LIDOCAINE 1% MDV 20ML VIAL As Ordered ONE; -LISI10TA4 PO; +MIDAZOLAM INJ 2 MG/2 ML VIAL (J2250) As Ordered ONE; -NAPR220C14 PO; -NYST1POW9 TOP; -OXYC-517 PO; -SANT250O8 TOP; -TRAM50TA2 PO; -TRAZ-257 PO; -TRAZ1TAB12 PO; +diphenhydrAMINE INJ 50MG/ML VIAL (J1200) As Ordered ONE; +fentaNYL 100 MCG/2 ML INJECTION (J3010) As Ordered ONE
--- NOTE | 2019-03-16 17:12 | REP ---
Right leg angiogram. Ultrasound right Axillo femoral graft anastomosis. Clinical Information: Non healing right lower extremity wounds. Physician: Dr Ortega.Procedure: The patient was advised of the benefits, risks, and alternatives of the procedure and informed consent was obtained.A time out was performed with verification of the patient's name, MRN, site of procedure, and type of procedure to be performed. The patient was positioned in the supine position on the angiographic table. The site was prepped and draped in the usual sterile fashion.Moderate sedation was performed by the physician including the presence of an independent trained observer that assisted in monitoring the patient's level of consciousness and physiological status. Following the administration of Fentanyl and Versed, the physician spent 60 minutes of continuous [id number] time with the patient. A drop hammer pile driver operator radiograph reveals surgical clips in the right thigh. Ultrasound right groin demonstrates Axillo femoral bypass graft which courses into the proximal thigh and loops back up the thigh to anastomose with a small paimiut vessel. A micropuncture needle was used under ultrasound guidance to try to access the paimiut artery distal to the graft. Contrast injection was performed and this demonstrates access into the vein. The paimiut vessel that the bypass graft hooks into is deep and surrounded by scar tissue. Given the looping of the axillo femoral graft within the proximal right thigh, left arm access into the axillo femoral bypass graft and attempts to probe the anastomosis from its proximal point would not be favorable. The access was removed, pressure held and hemostasis achieved. A sterile dressing was applied to the site. Patient tolerated the procedure well and transferred to PRU in stable condition. Complications: None. Estimated blood loss: Less than 5 ml. Impression: 1. Convoluted and looped bypass graft yard coupler into the right thigh, makes paimiut vessel not amenable to percutaneous access and intervention. 2. Will refer to surgery for surgical options. Thank you for this referral. Electronically Signed by Yanet Ortega MD 03/16/2019 05:10 P
== END ==
LOC: M RAD 10:59
PROVIDERS: ATTEND Radiology Diagnostic Radiology
DX: L97.919 Non-pressure chronic ulcer of unspecified part of right lower leg with unspecified severity (principal)
CPT/HCPCS: J2250; J3010; Q9967

== ENCOUNTER → 2019-03-16 | Outpatient (CLI) | payer MEDICARE, MEDICAID ==
[~2019-03-16] MED LIST changes: +ASPI81TAEC PO; -HEPARIN 1,000 UNITS/ML 10ML VIAL (FOR RADIOLOGY& DIALYSIS ONLY) As Ordered ONE; +INSUDET SC; -ISOVUE-300 61% 50ML VIAL (Q9967) As Ordered ONE; +KETO2SHA9 TOP; -LIDOCAINE 1% MDV 20ML VIAL As Ordered ONE; +LISI10TA4 PO; -MIDAZOLAM INJ 2 MG/2 ML VIAL (J2250) As Ordered ONE; +NAPR220C14 PO; +NYST1POW9 TOP; +SANT250O8 TOP; +TRAM50TA2 PO; +TRAZ-163 PO; -diphenhydrAMINE INJ 50MG/ML VIAL (J1200) As Ordered ONE; -fentaNYL 100 MCG/2 ML INJECTION (J3010) As Ordered ONE
--- NOTE | 2019-03-16 12:57 | IRMSE ---
[facility] IR Moderate Sedation Eval. Date and Time Date: Mar 16, 2019 Time: 12:57 ASA Classification ASA Classification: III-Severe systemic dis. Mallampati Score: I NPO: Yes Obstructive Sleep Apnea: No Interval Plan: moderate sedation CARON JAMES MD Mar 16, 2019 12:57
[2019-03-16 13:14] LABS: HEMATOCRIT 39.8 % (42.0-52.0); HEMOGLOBIN 12.9 g/dl (13.5-17.5); MEAN CORPUSCULAR HEMOGLOBIN 28.1 pg (27.0-33.0); MEAN CORPUSCULAR HGB CONC 32.4 g/dl (32.0-36.5); MEAN CORPUSCULAR VOLUME 86.7 fl (80.0-96.0); PLATELET COUNT, AUTOMATED 293 10^3/uL (150-450); RED BLOOD COUNT 4.59 10^6/uL (4.30-6.10); WHITE BLOOD COUNT 12.2 10^3/uL (4.0-10.0)
--- NOTE | 2019-03-16 14:41 | POST-OPPD ---
Postoperative Procedure Note Date Of Procedure: Mar 16, 2019 Time Of Procedure: 14:39 PREOPERATIVE DIAGNOSIS: PAD POSTOPERATIVE DIAGNOSIS: PAD FINDINGS: unable to access right bypass anastomosis for intervention due to scarring and looped nature of graft. PROCEDURE: attempted right [place] artery access for angiogram and angioplasty SURGEON: Jordan ANESTHESIA: moderate sedation ESTIMATED BLOOD LOSS: < 5 ml COMPLICATIONS: none POSTOPERATIVE CONDITION: stable CARON JAMES MD Mar 16, 2019 14:41
[2019-03-16 14:48] LABS: INR 1.07; PROTHROMBIN TIME 13.6 SECONDS (11.8-14.0)
--- NOTE | 2019-03-16 17:12 | REP ---
Right leg angiogram. Ultrasound right Axillo femoral graft anastomosis. Clinical Information: Non healing right lower extremity wounds. Physician: Dr Ortega.Procedure: The patient was advised of the benefits, risks, and alternatives of the procedure and informed consent was obtained.A time out was performed with verification of the patient's name, MRN, site of procedure, and type of procedure to be performed. The patient was positioned in the supine position on the angiographic table. The site was prepped and draped in the usual sterile fashion.Moderate sedation was performed by the physician including the presence of an independent trained observer that assisted in monitoring the patient's level of consciousness and physiological status. Following the administration of Fentanyl and Versed, the physician spent 60 minutes of continuous [id number] time with the patient. A repair service dispatcher radiograph reveals surgical clips in the right thigh. Ultrasound right groin demonstrates Axillo femoral bypass graft which courses into the proximal thigh and loops back up the thigh to anastomose with a small seminole vessel. A micropuncture needle was used under ultrasound guidance to try to access the seminole artery distal to the graft. Contrast injection was performed and this demonstrates access into the vein. The seminole vessel that the bypass graft hooks into is deep and surrounded by scar tissue. Given the looping of the axillo femoral graft within the proximal right thigh, left arm access into the axillo femoral bypass graft and attempts to probe the anastomosis from its proximal point would not be favorable. The access was removed, pressure held and hemostasis achieved. A sterile dressing was applied to the site. Patient tolerated the procedure well and transferred to PRU in stable condition. Complications: None. Estimated blood loss: Less than 5 ml. Impression: 1. Convoluted and looped bypass graft hooker inspector into the right thigh, makes seminole vessel not amenable to percutaneous access and intervention. 2. Will refer to surgery for surgical options. Thank you for this referral. Electronically Signed by Yanet Ortega MD 03/16/2019 05:10 P
[2019-03-16 17:30] VITALS: BP 156/68
== END ==
LOC: M IRPRO 11:08
PROVIDERS: ATTEND Radiology Diagnostic Radiology
DX: I70.239 Atherosclerosis of native arteries of right leg with ulceration of unspecified site (principal); Z95.828 Presence of other vascular implants and grafts
CPT/HCPCS: 36005; 76000; 85027; 85610; 99152; 99153; C1769; C1887; C1894

== ENCOUNTER 2019-04-04 09:38 | Inpatient (IN) | payer MEDICARE, MEDICAID ==
[~2019-04-04] VITALS: Ht 160 cm; Wt 67.0 kg
[~2019-04-04 09:38] MED LIST changes: -ASPI81TAEC PO; -INSUDET SC; -KETO2SHA9 TOP; -LISI10TA4 PO; -NAPR220C14 PO; -NYST1POW9 TOP; -SANT250O8 TOP; -TRAM50TA2 PO; -TRAZ-163 PO
[2019-04-04 11:01] LABS: BASO # 0.1 10^3/uL (0.0-0.2); BASO % 0.7 % (0.0-1.0); EOS # 0.1 10^3/uL (0.0-0.5); EOS % 1.2 % (0.0-3.0); HEMATOCRIT 35.3 % (42.0-52.0); HEMOGLOBIN 11.4 g/dl (13.5-17.5); LYMPH # 1.2 10^3/uL (1.5-5.0); LYMPH % 9.8 % (24.0-44.0); MEAN CORPUSCULAR HEMOGLOBIN 28.2 pg (27.0-33.0); MEAN CORPUSCULAR HGB CONC 32.3 g/dl (32.0-36.5); MEAN CORPUSCULAR VOLUME 87.4 fl (80.0-96.0); MONO # 1.1 10^3/uL (0.0-0.8); MONO % 9.6 % (0.0-5.0); NEUTROPHILS # 9.3 10^3/uL (1.5-8.5); NEUTROPHILS % 78.2 % (36.0-66.0); PLATELET COUNT, AUTOMATED 271 10^3/uL (150-450); RED BLOOD COUNT 4.04 10^6/uL (4.30-6.10); WHITE BLOOD COUNT 11.9 10^3/uL (4.0-10.0)
[2019-04-04 11:17] LABS: ALBUMIN 2.8 GM/DL (3.2-5.2); ALT/SGPT 16 U/L (12-78); BILIRUBIN,DIRECT 0.2 MG/DL (0.0-0.2); BILIRUBIN,TOTAL 0.5 MG/DL (0.2-1.0); BLOOD UREA NITROGEN 11 MG/DL (7-18); C REACTIVE PROTEIN QUANTITATIV 3.67 MG/DL (0.00-0.30); CALCIUM LEVEL 8.7 MG/DL (8.8-10.2); CARBON DIOXIDE LEVEL 27 MEQ/L (21-32); CHLORIDE LEVEL 99 MEQ/L (98-107); CREATININE FOR GFR 1.08 MG/DL (0.70-1.30); GLOMERULAR FILTRATION RATE > 60.0 (>49); GLUCOSE, FASTING 353 MG/DL (70-100); POTASSIUM SERUM 4.1 MEQ/L (3.5-5.1); SODIUM LEVEL 136 MEQ/L (136-145); TOTAL PROTEIN 6.7 GM/DL (6.4-8.2)
[2019-04-04 11:27] LABS: ERYTHROCYTE SEDIMENTATION RATE 70 mm/hr (0-20)
[2019-04-04] MEDS ORDERED: NS 1,000 ML IV ONE ×2 (11:30→14:00)
[2019-04-04] MEDS ORDERED: NS 1,010 ML in IV 1 EA IV ONE (11:45)
[2019-04-04] MEDS ORDERED: PIPERACILLIN/TAZOBACTAM SOD 4.5 GM in D5W MINI-BAG PLUS 50 ML IV ONE (11:45)
[2019-04-04] MEDS ORDERED: TRAZ-163 PO (12:14)
[2019-04-04] MEDS ORDERED: SANT250O8 TOP (12:14)
[2019-04-04] MEDS ORDERED: TRAM50TA2 PO (12:14)
[2019-04-04] MEDS ORDERED: NYST1POW9 TOP (12:14)
[2019-04-04] MEDS ORDERED: KETO2SHA9 TOP (12:14)
[2019-04-04] MEDS ORDERED: NAPR220C14 PO (12:15)
--- NOTE | 2019-04-04 12:48 | REP ---
A PA and lateral chest, the patient semi upright, 12:14 p.m.: Comparison is 04/14/2017. The lung hallman are clear. Cardiac size is normal. The william, mediastinum, skeletal structures are unremarkable. There are surgical clips in the soft tissues of the anterior right chest wall superimposed laterally over the right lung apex, unchanged. Impression: There are no acute cardiopulmonary findings. Electronically Signed by Miquel Torre MD 04/04/2019 12:40 P
--- NOTE | 2019-04-04 12:49 | REP ---
Right tibia-fibula four views: There are no comparisons. There is diffuse soft tissue edema. There are no lytic, blastic or destructive skeletal changes. No periosteal reactive change. Mineralization is normal. There is calcified vascular atheroma. Impression: Diffuse soft tissue edema. Mineralization is normal. There are no lytic, blastic or destructive skeletal changes. Electronically Signed by Miquel Torre MD 04/04/2019 12:41 P
--- NOTE | 2019-04-04 12:53 | REP ---
Foot four views: The films are not labeled as to [id number], however the request states right foot. Comparison is 04/15/2016. There has been interim resection of the fifth digit metatarsal distal shaft. There is demineralization as an interval change . There are no lytic, blastic or destructive skeletal changes. There is no fracture or dislocation. Electronically Signed by Miquel Torre MD 04/04/2019 12:45 P
[2019-04-04] MEDS ORDERED: VANCOMYCIN HCL 1,000 MG in IV FLUID PLACE HOLDER 1 EA IV SCH (14:00)
[2019-04-04] MEDS ORDERED: DEXTROSE 50% 50 ML SYRINGE IV PRN (14:30)
[2019-04-04] MEDS ORDERED: GLUCOSE 4 GM CHEW TABLET PO PRN (14:30)
[2019-04-04] MEDS ORDERED: GLUCAGON FOR INJ 1 MG VIAL (J1610) SC PRN (14:30)
[2019-04-04] MEDS ORDERED: VANCOMYCIN HCL 1,000 MG, VIAL MATE ADAPTER 1 EACH in D5W 250 ML IV ONE (15:00)
[2019-04-04 15:11] LABS: BLOOD UREA NITROGEN 9 MG/DL (7-18); CALCIUM LEVEL 8.4 MG/DL (8.8-10.2); CARBON DIOXIDE LEVEL 22 MEQ/L (21-32); CHLORIDE LEVEL 103 MEQ/L (98-107); CREATININE FOR GFR 1.12 MG/DL (0.70-1.30); GLOMERULAR FILTRATION RATE > 60.0 (>49); GLUCOSE, FASTING 199 MG/DL (70-100); POTASSIUM SERUM 3.7 MEQ/L (3.5-5.1); SODIUM LEVEL 140 MEQ/L (136-145)
[2019-04-04] MEDS: ACETAMINOPHEN TAB 650MG DOSE (2X325MG) PO PRN ×2 (15:33→23:04)
[2019-04-04] MEDS ORDERED: VANCOMYCIN HCL 750 MG, VIAL MATE ADAPTER 1 EACH in D5W 250 ML IV ONE (16:00)
--- NOTE | 2019-04-04 17:50 | HPEPDOC ---
[facility] Medical History & Physical Date of Admission Apr 04, 2019 Date of Service: Apr 04, 2019 Attending Physician: USHA THOMSON MD History and Physical CHIEF COMPLAINT: Right foot pain HISTORY OF PRESENT ILLNESS: Patient is a 68 year old male who presented to the [facility] ER with complaint of right foot pain. Patient has a history of chronic right foot ulceration, peripheral vascular disease, and diabetes mellitus type 2. Patient states that he follows with Dr. Goodwin for care of his foot. He states that he was seen in the office last week and had been instructed to go to the emergency room. The patient however did not go to the emergency room. Patient noticed worsening of his foot over the past few days with increased redness, pain, and swelling. He currently denies any fevers however admits to chills. He denies any chest pain, shortness of breath, nausea, vomiting, diarrhea or constipation. He has significant peripheral vascular disease with attempted and failed bypass grafting. PAST MEDICAL HISTORY: 1. Peripheral Vascular Disease s/p bypass grafting 2. Chronic right foot ulceration 3. Diabetes mellitus type 2 4. Nicotine Dependence PAST SURGICAL HISTORY: 1. Right femoral bypass grafting SOCIAL HISTORY: Patient lives at home alone. He is a current smoker and smokes approximately 1/2 pack per day. He denies any illicit or IV drug use FAMILY HISTORY: Noncontributory ALLERGIES: Please see below. REVIEW OF SYSTEMS: CONSTITUTIONAL: Admits to chills. Denies fevers, nightsweats. Denies unintentional weight loss or weight gain HEENT: Denies cough. Denies changes in vision CARDIOVASCULAR: Denies chest pain or shortness of breath RESPIRATORY: Denies shortness of breath. Denies wheezing. Denies cough GASTROINTESTINAL: Denies abdominal pain. Denies nausea, vomiting, diarrhea, constipation. Denies bloody stools GENITOURINARY: Denies dysuria, increased frequency. SKIN: Admits to chronic ulceration of right foot MUSCULOSKELETAL: Admits to pain in right leg NEUROLOGICAL: Denies history of seizures, stroke. PSYCHIATRIC: Denies depression or anxiety ENDOCRINE: Admits to diabetes. Denies heat or cold intolerance HEMATOLOGIC/LYMPHATIC: Denies easy bruising or bleeding HOME MEDICATIONS: Please see below. PHYSICAL EXAMINATION: VITAL SIGNS: Temperature 98.9, pulse 108, respiratory rate 20, blood pressure 153/65, pulse oximetry 98% on room air. GENERAL APPEARANCE: Awake, alert and oriented. Does not appear in acute distress. Appears uncomfortable HEENT: Atraumatic normocephalic. Eyes are nonicteric. trachea is midline. Dentition is fair CARDIOVASCULAR: Normal S1, S2. Regular rate and rhythm. No clicks rubs or murmurs. No JVD LUNGS: Clear vesicular breath sounds bilaterally. No wheezes rhonchi or rales. No accessory muscle use ABDOMEN: Soft, nontender, nondistended. Normoactive bowel sounds throughout EXTREMITIES: Right foot with ulceration and green discharge consistent with wet gangrene. Decreased pulses bilaterally. NEUROLOGICAL: No focal neurological deficits PSYCHIATRIC: Mood and affect appear appropriate LABORATORY DATA: See below. IMAGING: Right tibia-fibula four views: There are no comparisons. There is diffuse soft tissue edema. There are no lytic, blastic or destructive skeletal changes. No periosteal reactive change. Mineralization is normal. There is calcified vascular atheroma. Impression: Diffuse soft tissue edema. Mineralization is normal. There are no lytic, blastic or destructive skeletal changes. Electronically Signed by Miquel Torre MD 04/04/2019 12:41 P Foot four views: The films are not labeled as to [id number], however the request states right foot. Comparison is 04/15/2016. There has been interim resection of the fifth digit metatarsal distal shaft. There is demineralization as an interval change . There are no lytic, blastic or destructive skeletal changes. There is no fracture or dislocation. Electronically Signed by Miquel Torre MD 04/04/2019 12:45 P A PA and lateral chest, the patient semi upright, 12:14 p.m.: Comparison is 04/14/2017. The lung hallman are clear. Cardiac size is normal. The william, mediastinum, skeletal structures are unremarkable. There are surgical clips in the soft tissues of the anterior right chest wall superimposed laterally over the right lung apex, unchanged. Impression: There are no acute cardiopulmonary findings. Electronically Signed by Miquel Torre MD 04/04/2019 12:40 P MICROBIOLOGY: Please see below. ASSESSMENT: Patient is a 68 year old male with a history of chronic right foot ulceration, peripheral vascular disease, and diabetes mellitus type 2 who presented to the ER with increased right foot pain, redness, and swelling . PLAN: 1. Right foot wet gangrene/cellulitis -Patient has chronic right foot ulceration which is likely secondary to his peripheral vascular disease. Has soft tissue swelling on x-ray consistent with likely cellulitis. Likely wet gangrene -Patient will receive MRI of the foot to assess for osteomyelitis and necrosis -Patient will be continued on Vancomycin and Zosyn. His wound is likely infected with Pseudomonas. Cannot exclude MRSA. Culture and gram stain has been ordered. -Podiatry has been consulted and will continue with wound care management. The case was discussed with Dr. Goodwin who will see and evaluate the patient this evening. Given the chronicity of the patients right foot ulcer he may need amputation 2. Diabetes Mellitus Type 2 -Patient is on metformin outpatient. Will hold while hospitalized. Patient will be on sliding scale with consistent carb diet 3. DVT prophylaxis -Heparin SQ Q8H 4. Nicotine Dependence -Patient currently smokes ~10 cigarettes a day. Will place on 14mg patch daily I performed a history and physical examination of the patient and discussed their management with the above documenter. I reviewed the note and agree with the documented findings and plan of care. Vital Signs Vital Signs Date Time Temp Pulse Resp B/P (MAP) Pulse Ox O2 Delivery O2 Flow Rate FiO2 04/04/19 16:53 98.9 108 20 153/65 (94) 98 Room Air Laboratory Data Labs 24H Laboratory Tests 2 04/04/19 10:34: Immature Granulocyte % (Auto) 0.5, White Blood Count 11.9H, Red Blood Count 4.0 4L, Hemoglobin 11.4L, Hematocrit 35.3L, Mean Corpuscular Volume 87.4, Mean Corpuscular Hemoglobin 28.2, Mean Corpuscular Hemoglobin Concent 32.3, Red Cell Distribution Width 13.2, Platelet Count 271, Neutrophils (%) (Auto) 78.2H, Lymphocytes (%) (Auto) 9.8L, Monocytes (%) (Auto) 9.6H, Eosinophils (%) (Auto) 1.2, Basophils (%) (Auto) 0.7, Neutrophils # (Auto) 9.3H, Lymphocytes # (Auto) 1.2L, Monocytes # (Auto) 1.1H, Eosinophils # (Auto) 0.1, Basophils # (Auto) 0.1, Nucleated Red Blood Cells % (auto) 0.0, Erythrocyte Sedimentation Rate 70H, Anion Gap 10, Glomerular Filtration Rate > 60.0, Lactic Acid Level 3.4*H, Calcium Level 8.7L, Aspartate Amino Transf (AST/SGOT) 10, Alanine Aminotransferase (ALT/SGPT) 16, Alkaline Phosphatase 92, Total Bilirubin 0.5, Direct Bilirubin 0.2, C-Reactive Protein, Quantitative 3.67H, Total Protein 6.7, Albumin 2.8L, Albumin/Globulin Ratio 0.72L 04/04/19 14:35: Anion Gap 15, Glomerular Filtration Rate > 60.0, Calcium Level 8.4L, Blood Urea Nitrogen 9, Creatinine 1.12, Sodium Level 140, Potassium Level 3.7, Chloride Level 103, Carbon Dioxide Level 22 04/04/19 15:14: Lactic Acid Followup at 4 Hours 6.6*H CBC/BMP Laboratory Tests 04/04/19 10:34 Red Blood Count 4.04 L, Mean Corpuscular Volume 87.4, Mean Corpuscular Hemoglobin 28.2, Mean Corpuscular Hemoglobin Concent 32.3, Red Cell Distribution Width 13.2, Neutrophils (%) (Auto) 78.2 H, Lymphocytes (%) (Auto) 9.8 L, Monocytes (%) (Auto) 9.6 H, Eosinophils (%) (Auto) 1.2, Basophils (%) (Auto) 0.7, Neutrophils # (Auto) 9.3 H, Lymphocytes # (Auto) 1.2 L, Monocytes # (Auto) 1.1 H, Eosinophils # (Auto) 0.1, Basophils # (Auto) 0.1 04/04/19 14:35 Calcium Level 8.4 L Microbiology Microbiology 04/04/19 Blood Culture, Received Pending 04/04/19 Blood Culture, Received Pending 04/04/19 Gram Stain - Final, Resulted 04/04/19 Wound Culture, Resulted Pending Home Medications Scheduled Atorvastatin Calcium (Atorvastatin Calcium) 80 Mg Tab, 80 MG PO QHS Collagenase Clostridium Hist. (Santyl) 30 Gm Oint...g., 1 APLCT TOP DAILY APPLY TO FOOT WOUND Metformin HCl (Metformin HCl) 1,000 Mg Tab, 1,000 MG PO BIDWM Nystatin (Nystatin Powder) 15 Gm Powder, 1 APLCT TOP DAILY APPLY TO FEET Trazodone HCl (Trazodone HCl) 100 Mg Tablet, 100 MG PO QHS Scheduled PRN Ketoconazole (Ketoconazole) 120 Ml Shampoo, 1 DOSE TOP DAILY PRN for INFLAMED SKIN APPLY TO SCALP AND AQUINO Naproxen Sodium (Aleve) 220 Mg Capsule, 220 MG PO BID PRN for PAIN Tramadol HCl (Tramadol HCl) 50 Mg Tablet, 50 MG PO DAILY PRN for PAIN Allergies Coded Allergies: ibuprofen (Verified Allergy, Severe, TROUBLE BREATHING, 04/04/19) strawberry (Verified Allergy, Severe, THROAT SWELLING, 04/04/19) A-FIB/CHADSVASC A-FIB History Current/History of A-Fib/PAF?: No LAURIE CASTELLANOS DO Apr 04, 2019 17:50 USHA THOMSON MD Apr 12, 2019 14:30
[2019-04-04] MEDS: HEPARIN SOD (PORCINE) 5000 UNITS/ML VIAL SQ SCH ×2 (18:35→22:00)
[2019-04-04] MEDS: HumaLOG INSULIN (NovoLOG) PER UNIT SC SCH ×2 (18:35→21:30)
[2019-04-04 19:05] VITALS: BP 124/68
[2019-04-04] MEDS: PIPERACILLIN/TAZOBACTAM SOD 3.375 GM in D5W MINI-BAG PLUS 50 ML IV SCH (19:46)
[2019-04-04 21:30] VITALS: BP 136/73
--- NOTE | 2019-04-04 21:36 | ECGEPIP ---
[facility] - ED Test Date: 2019-04-04 Pat Name: JORDAN MCKEON Department: Room: - Gender: Male [employer]: KOLTON : 1950 Requested By: Luis Eduardo Corona Order Number: [id number] Reading MD: Juventino Escalera Measurements Intervals [place] Rate: 86 P: 70 MO: 136 QRS: 89 QRSD: 90 T: 60 QT: 365 QTc: 438 Interpretive Statements SINUS RHYTHM Electronically Signed on 04-04-2019 21:36:08 EDT by Juventino Escalera
[2019-04-05] VITALS (7 sets, daily range): BP systolic 119–142; BP diastolic 65–79
[2019-04-05] MEDS: PIPERACILLIN/TAZOBACTAM SOD 3.375 GM in D5W MINI-BAG PLUS 50 ML IV SCH ×4 (01:00→18:22)
[2019-04-05] MEDS ORDERED: VANCOMYCIN HCL 1,000 MG, VIAL MATE ADAPTER 1 EACH in D5W 250 ML IV SCH (05:00)
[2019-04-05] MEDS: HEPARIN SOD (PORCINE) 5000 UNITS/ML VIAL SQ SCH ×3 (06:17→21:15)
[2019-04-05 06:56] LABS: HEMATOCRIT 31.5 % (42.0-52.0); HEMOGLOBIN 10.5 g/dl (13.5-17.5); MEAN CORPUSCULAR HEMOGLOBIN 28.5 pg (27.0-33.0); MEAN CORPUSCULAR HGB CONC 33.3 g/dl (32.0-36.5); MEAN CORPUSCULAR VOLUME 85.4 fl (80.0-96.0); RED BLOOD COUNT 3.69 10^6/uL (4.30-6.10); WHITE BLOOD COUNT 12.4 10^3/uL (4.0-10.0)
[2019-04-05 07:03] LABS: PLATELET COUNT, AUTOMATED 167 10^3/uL (150-450)
[2019-04-05 07:26] LABS: BLOOD UREA NITROGEN 9 MG/DL (7-18); CALCIUM LEVEL 8.5 MG/DL (8.8-10.2); CARBON DIOXIDE LEVEL 25 MEQ/L (21-32); CHLORIDE LEVEL 106 MEQ/L (98-107); CREATININE FOR GFR 1.05 MG/DL (0.70-1.30); GLOMERULAR FILTRATION RATE > 60.0 (>49); GLUCOSE, FASTING 206 MG/DL (70-100); POTASSIUM SERUM 3.4 MEQ/L (3.5-5.1); SODIUM LEVEL 139 MEQ/L (136-145)
[2019-04-05] MEDS: HumaLOG INSULIN (NovoLOG) PER UNIT SC SCH ×4 (08:05→21:00)
[2019-04-05] MEDS: NICOTINE 14 MG/24 HR TRANSDERMAL TD SCH (08:05)
[2019-04-05] MEDS: VANCOMYCIN HCL 1,000 MG, VIAL MATE ADAPTER 1 EACH in D5W 250 ML IV SCH (10:22)
[2019-04-05] MEDS: LEVEMIR (INSULIN DETEMIR) 1 UNITS/0.01ML SC SCH ×2 (10:59→21:14)
[2019-04-05] MEDS ORDERED: LIDOCAINE 4% TOPICAL SOLN 50 ML BTL TOP ONE (11:00)
[2019-04-05] MEDS: NS 1,000 ML IV SCH (11:00)
[2019-04-05] MEDS: NORCO, ANEXSIA 5/325MG TABLET (HYDROcodone/ACETAMINOPHEN) PO PRN ×2 (11:55→18:22)
--- NOTE | 2019-04-05 12:18 | CR.PDOC ---
General Date of Consultation: Apr 05, [address] Cedeño. HPI: 68year oldM with chronic wound RLE. The pt presented to [facility] ED 02/01/19 with complaint of right foot pain. Patient has a history of chronic right foot ulceration, peripheral vascular disease. He states that he follows with Dr. Goodwin for Rt foot wound care. He states that he was seen in the office last week and had been instructed to go to the emergency room, but did not go. States he has noticed worsening of his foot over the past few days with increased redness, pain, and swelling. He denies fevers however reports chills. States has had some Rt groin cramping pain. Vascular Surgery is consulted Re Rt foot wounds, PVD. Denies any fevers, chills, weakness, fatigue, Headache, Chest Pain, Shortness of breath, cough, palpitations, abdominal pain, N/V/D or changes in bowel or bladder habits. PAST MEDICAL HISTORY: PAD, s/p bypass grafting Chronic right foot ulceration DM2 Nicotine Dependence HLD PAST SURGICAL HISTORY: H/O Rt Ax-fem, Rt to left Fem-Fem bypass grafting Dr Allyssa Trotter SOCIAL HISTORY: current smoker, approximately 1/2 pack per day. He denies ETOH ROS: As noted in HPI, otherwise 11pt ROS of systems reviewed and unremarkable. PE: GEN: 68yoM, thin and unkept apearing. Alert and oriented x 3. HEENT: Normocephalic, atraumatic. Moist mucous membranes. LUNGS: Breathing appears symmetric and easy. Patient is speaking in full sentences. No accessory muscle use. ABD: Round, soft, non-tender, non-distended. EXT: Large wound across dorsal aspect of the Rt foot including toes with black discoloration, diffuse erythema and edema of the rt foot. Another 8-9 cm wound noted posterior ankle/distal posterior aspect of lower leg. A few small wounds/excoriations noted anterior aspect of Lt pretibial area. Pulses are obtained with Doppler Rt foot, monophasic. NEURO: Alert and oriented x 3. No focal deficits appreciated. Right tibia-fibula four views: There are no comparisons. There is diffuse soft tissue edema. There are no lytic, blastic or destructive skeletal changes. No periosteal reactive change. Mineralization is normal. There is calcified vascular atheroma. Impression: Diffuse soft tissue edema. Mineralization is normal. There are no lytic, blastic or destructive skeletal changes. Electronically Signed by Miquel Torre MD 04/04/2019 12:41 P Foot four views: The films are not labeled as to [id number], however the request states right foot. Comparison is 04/15/2016. There has been interim resection of the fifth digit metatarsal distal shaft. There is demineralization as an interval change . There are no lytic, blastic or destructive skeletal changes. There is no fracture or dislocation. Electronically Signed by Miquel Torre MD 04/04/2019 12:45 P A&P: PAD. The pt is reviewed as per Dr Cedeño. The pt is noted to have had recent RLE angiogram. Plan to obtain BLE arterial US. Further recommendations pending results. Chronic Rt Foot wound. Tmax 100.1 HR 96. SBP 142. WBC 12.4 LA pending. BC pending WC pending. IVF/IV antibiotics as per Hospitalist. IV Vanco/Zosyn. Wound care as per Dr Goodwin. Dr Og also consulted re wound mgmt. Vital Signs/I&O Vital Signs Date Time Temp Pulse Resp B/P (MAP) Pulse Ox O2 Delivery O2 Flow Rate FiO2 04/05/19 05:54 100.1 96 19 142/67 (92) 98 04/04/19 16:53 Room Air I&O- Last 24 Hours up to 6 AM 04/05/19 05:59 Intake Total 3240 ml Output Total 850 ml Balance 2390 ml Laboratory Data Labs 24H Laboratory Tests 2 04/04/19 14:35: Anion Gap 15, Glomerular Filtration Rate > 60.0, Blood Urea Nitrogen 9, Creatinine 1.12, Sodium Level 140, Potassium Level 3.7, Chloride Level 103, Carbon Dioxide Level 22, Calcium Level 8.4L 04/04/19 15:14: Lactic Acid Followup at 4 Hours 6.6*H 04/04/19 18:12: Bedside Glucose (Misc Panel) 208H 04/04/19 21:26: Bedside Glucose (Misc Panel) 183H 04/05/19 06:28: Nucleated Red Blood Cells % (auto) 0.0, Anion Gap 8, Glomerular Filtration Rate > 60.0, Blood Urea Nitrogen 9, Creatinine 1.05, Sodium Level 139, Potassium Level 3.4L, Chloride Level 106, Carbon Dioxide Level 25, Calcium Level 8.5L 04/05/19 10:51: Estimated Mean Plasma Glucose 212H, Hemoglobin A1c 9.0, Lactic Acid Level 2.9*H CBC/BMP Laboratory Tests 04/04/19 14:35 Calcium Level 8.4 L 04/05/19 06:28 Calcium Level 8.5 L, Red Blood Count 3.69 L, Mean Corpuscular Volume 85.4, Mean Corpuscular Hemoglobin 28.5, Mean Corpuscular Hemoglobin Concent 33.3, Red Cell Distribution Width 13.1 Microbiology Microbiology 04/04/19 Blood Culture, Received Pending 04/04/19 Blood Culture - Preliminary, Resulted No growth after 24 hours . All specim... 04/04/19 Gram Stain - Final, Resulted 04/04/19 Wound Culture, Resulted Pending Allergies Coded Allergies: ibuprofen (Verified Allergy, Severe, TROUBLE BREATHING, 04/04/19) strawberry (Verified Allergy, Severe, THROAT SWELLING, 04/04/19) Home Medications Scheduled Atorvastatin Calcium (Atorvastatin Calcium) 80 Mg Tab, 80 MG PO QHS, (Reported) Collagenase Clostridium Hist. (Santyl) 30 Gm Oint...g., 1 APLCT TOP DAILY, (Reported) APPLY TO FOOT WOUND Metformin HCl (Metformin HCl) 1,000 Mg Tab, 1,000 MG PO BIDWM, (Reported) Nystatin (Nystatin Powder) 15 Gm Powder, 1 APLCT TOP DAILY, (Reported) APPLY TO FEET Trazodone HCl (Trazodone HCl) 100 Mg Tablet, 100 MG PO QHS, (Reported) Scheduled PRN Ketoconazole (Ketoconazole) 120 Ml Shampoo, 1 DOSE TOP DAILY PRN for INFLAMED SKIN, (Reported) APPLY TO SCALP AND AQUINO Naproxen Sodium (Aleve) 220 Mg Capsule, 220 MG PO BID PRN for PAIN, (Reported) Tramadol HCl (Tramadol HCl) 50 Mg Tablet, 50 MG PO DAILY PRN for PAIN, (Reported) Attending Note Attending Note VASCULAR SURGICAL ATTENDING NOTE: Dr. Debbie Cedeño M.D. The patient was seen on 04/05/19 at 12:55. ASSESSMENT: Patient is a 68-year-old male with chronic nonhealing right foot wounds which are been followed by Dr. Og and Dr. Goodwin. Patient recently underwent right lower extremity angiogram which I have reviewed myself and the only images present show cannulation of the right superficial femoral vein with a venogram performed and no angiography. Patient has a history of a right axillobifemoral bypass performed in [place]. Patient states that he had worsening pain in his right foot which is brought him to the emergency room. PLAN: Patient will require a formal right lower extremity angiogram with possible angioplasty, stent and/or atherectomy to maximize the blood flow into the right foot. This will be scheduled as soon as possible as the patient has critical limb ischemia and threatened limb with possible loss of limb. I discussed this with the patient and he understands and agrees to proceed with angiography as soon as possible. Cesar Lemus was the attending vascular surgeon for this patient encounter. The patient was seen, examined, interviewed and evaluated independently by Dr. Harvey Cedeño M.D. Dr. Harvey Cedeño M.D. was fully available during the consultation evaluation. All aspects of the patient interview, examination, medical decision making process, and medical care plan development were reviewed and approved by Dr. Harvey Cedeño M.D. Dr. Harvey Cedeño M.D. is aware and concurs with the plan as stated in the body of this note and will attest to such by his/her cosignature. Amara Hawkins Apr 05, 2019 11:42 Barron Cedeño MD Apr 05, 2019 13:04
--- NOTE | 2019-04-05 12:22 | IPNPDOC ---
Date Seen The patient was seen on 04/05/19. Progress Note SUBJECTIVE: Patient was seen and examined this morning. There have been no adverse events overnight. The patient denies any significant foot pain. He denies fevers or chills. He denies nausea or vomiting. Patient has been receiving wound care per Dr. More instructions. OBJECTIVE PHYSICAL EXAMINATION: VITAL SIGNS: Please see below. GENERAL: Awake, alert, and oriented. Lying in bed comfortably. Appears in no acute distress HEENT: Atraumatic normocephalic. Eyes are nonicteric. Trachea is midline. Dentition is fair. CARDIOVASCULAR: Normal S1, S2. Regular rate and rhythm. No clicks rubs or murmurs RESPIRATORY: Clear vesicular breath sounds bilaterally. Prolonged expiratory phase. No wheezes, rhonchi, or rales ABDOMINAL: Soft, nondistended. Nontender to palpation in all 4 quadrants. No rebound tenderness or guarding. Normoactive bowel sounds EXTREMITIES: Right foot currently bandaged. No edema. decreased pulses on the left NEUROLOGICAL: No focal neurological deficits detected PSYCHOLOGICAL: Mood and affect appear appropriate LABORATORY DATA, IMAGING STUDIES, MICROBIOLOGY: Please see below. DVT prophylaxis ordered?: Heparin SQ ASSESSMENT AND PLAN: Patient is a 68 year old male who presented with a right foot cellulitis/wet gangrene and possible osteomyelitis PROBLEMS: 1. Right foot wet gangrene/cellulitis -Patient has a chronic right foot ulceration. He does have PVD and has had stent placement in his right femoral in the past. This was completed in [place]. We will attempt to obtain records pertaining patients previous procedure. -He is currently continued on Vancomycin and Zosyn. Wound cultures are currently pending. An MRI of the foot was ordered yesterday to assess for osteomyelitis vs necrosis. Unfortunately the patient was unable to get the MRI b ecause he had difficulty holding his leg up. -Patient is being followed by Dr. Goodwin. Wound care orders are per Dr. Goodwin -Given patients noncompliance and recurrent chronic wound he may eventually need amputation 2. Lactic Acidosis -Patient had elevated lactic acid of 6.6. Patient will be started on fluids. Repeat lactic acid now and every 6 hours for normalization 3. Diabetes Mellitus Type 2 -HbgA1C is pending -Patient will be placed on Levemir 5 units BID with sliding scale insulin coverage 4. Right axilla tinea -Patient has what appears to be right axilla tinea. Will treat with fluconazole 5. Nicotine dependence -Patient currently on nicotine patch VS, I&O, 24H, [place] Vital Signs/I&O Vital Signs Date Time Temp Pulse Resp B/P (MAP) Pulse Ox O2 Delivery O2 Flow Rate FiO2 04/05/19 11:55 18 04/05/19 05:54 100.1 96 142/67 (92) 98 04/04/19 16:53 Room Air I&O- Last 24 Hours up to 6 AM 04/05/19 06:00 Intake Total 3320 ml Output Total 850 ml Balance 2470 ml Laboratory Data 24H LABS Laboratory Tests 2 04/04/19 14:35: Anion Gap 15, Glomerular Filtration Rate > 60.0, Blood Urea Nitrogen 9, Creatinine 1.12, Sodium Level 140, Potassium Level 3.7, Chloride Level 103, Carbon Dioxide Level 22, Calcium Level 8.4L 04/04/19 15:14: Lactic Acid Followup at 4 Hours 6.6*H 04/04/19 18:12: Bedside Glucose (Misc Panel) 208H 04/04/19 21:26: Bedside Glucose (Misc Panel) 183H 04/05/19 06:28: Nucleated Red Blood Cells % (auto) 0.0, Anion Gap 8, Glomerular Filtration Rate > 60.0, Blood Urea Nitrogen 9, Creatinine 1.05, Sodium Level 139, Potassium Level 3.4L, Chloride Level 106, Carbon Dioxide Level 25, Calcium Level 8.5L 04/05/19 10:51: Estimated Mean Plasma Glucose 212H, Hemoglobin A1c 9.0, Lactic Acid Level 2.9*H CBC/BMP Laboratory Tests 04/04/19 14:35 Calcium Level 8.4 L 04/05/19 06:28 Calcium Level 8.5 L, Red Blood Count 3.69 L, Mean Corpuscular Volume 85.4, Mean Corpuscular Hemoglobin 28.5, Mean Corpuscular Hemoglobin Concent 33.3, Red Cell Distribution Width 13.1 Microbiology Microbiology 04/04/19 Blood Culture - Preliminary, Resulted No growth after 24 hours . All specim... 04/04/19 Blood Culture - Preliminary, Resulted No growth after 24 hours . All specim... 04/04/19 Gram Stain - Final, Resulted 04/04/19 Wound Culture, Resulted Pending GME ATTESTATION GME ATTESTATION My faculty preceptor for this patient encounter was physically present during the encounter and was fully available. All aspects of the patient interview, examination, medical decision making process, and medical care plan development were reviewed and approved by the faculty preceptor. The faculty preceptor is aware and concurs with the plan as stated in the body of this note and will attest to such by his/her cosignature. ATTENDING NOTE Patient was seen and examined by me this morning with the residents. Agree with the above assessment and plan LAURIE CASTELLANOS DO Apr 05, 2019 12:22 NESTOR COOPER MD Apr 05, 2019 14:21
[2019-04-05] MEDS: FLUCONAZOLE 100 MG TAB PO SCH (12:35)
[2019-04-05] MEDS ORDERED: ISOVUE-300 61% 50ML VIAL (Q9967) As Ordered ONE (15:49)
[2019-04-05] MEDS ORDERED: BUPIVACAINE HCL 0.5% 10 ML VIAL As Ordered ONE (15:49)
[2019-04-05] MEDS ORDERED: LIDOCAINE 2% MDV 20 ML VIAL As Ordered ONE (15:49)
[2019-04-05] MEDS ORDERED: diphenhydrAMINE INJ 50MG/ML VIAL (J1200) As Ordered ONE (15:49)
[2019-04-05] MEDS ORDERED: fentaNYL 100 MCG/2 ML INJECTION (J3010) As Ordered ONE (15:49)
[2019-04-05] MEDS ORDERED: HEPARIN 1,000 UNITS/ML 10ML VIAL (FOR RADIOLOGY& DIALYSIS ONLY) As Ordered ONE (15:49)
[2019-04-05] MEDS ORDERED: MIDAZOLAM INJ 2 MG/2 ML VIAL (J2250) As Ordered ONE (15:49)
--- NOTE | 2019-04-05 19:01 | CR ---
DATE OF CONSULTATION: 04/05/2019 REASON FOR CONSULTATION: Right lower extremity ulcerations and infection. Yong Khoury is a pleasant 68-year-old male who was seen last in my office last week for chronic right foot ulcerations. He has had these wounds now over the last several months. There was initially some improvement, but the wounds have continued to progress. He was seen in wound care and has been evaluated at the wound care center over the last month and despite proper care there, he continues to have worsening of his wounds. He is noted to have non-ideal living conditions in which his wound care at home has not been ideal, and he has had persistently dirty saturated bandages as well as maggots within his wounds when seen in my office. Decision was made to send him to the hospital for admission antibiotics, proper wound care and further treatment. PAST MEDICAL HISTORY: Significant for peripheral vascular disease, diabetes, nicotine dependence, and chronic foot ulcerations. PAST SURGICAL HISTORY: Includes right femoral (fem) bypass grafting. SOCIAL HISTORY: Includes smoking. FAMILY HISTORY: Noncontributory. ALLERGIES: Include IBUPROFEN and STRAWBERRIES. VITAL SIGNS: Temperature this morning was 100.1, maximum temperature (T max) over 24 hours 100.9. LABS ON ADMISSION: White blood cell count is 11.9, today it is 12.4, ESR is 70. Lactic acid on admission was 3.4, today in followup it was 6.6. IMAGING STUDIES: Foot x-ray and leg x-ray reveal no signs of bone erosion or soft tissue gas. Culture results are pending. He has had previous wound swabbing, which did show Pseudomonas which was resistant to the fluoroquinolones. LOWER EXTREMITY EXAMINATION: On the right side, there is large ulceration to the dorsal surface of the foot and toes, as well as an ulceration to the posterior calf. There are dry gangrenous changes to these wounds with some patchy green necrosis. There is exposed tendon on the dorsal aspect of the hallux. ASSESSMENT: Patient with chronic foot ulcerations, peripheral vascular disease, and cellulitis right foot. PLAN: Continue current dressing changes, on empiric antibiotics - vancomycin and Zosyn. Await further culture results. Will consult telemedicine with Dr. Og for further wound care recommendations. Will consult vascular surgery to evaluate patient and see if there are any further options available to improve his blood flow to the foot. It was discussed with the patient that he is at risk for losing the foot and leg. Will continue to follow. MTDD
[2019-04-05] MEDS: ATORVASTATIN 20 MG TAB PO SCH (21:15)
[2019-04-05] MEDS: MORPHINE 4 MG/ML 1ML VIAL/SYRINGE (J2270) IV PRN (21:15)
[2019-04-06] MEDS: NS 1,000 ML IV SCH ×2 (00:38→05:30)
[2019-04-06] MEDS: PIPERACILLIN/TAZOBACTAM SOD 3.375 GM in D5W MINI-BAG PLUS 50 ML IV SCH ×4 (01:00→18:25)
[2019-04-06] MEDS: VANCOMYCIN HCL 1,000 MG, VIAL MATE ADAPTER 1 EACH in D5W 250 ML IV SCH ×2 (03:46→21:01)
[2019-04-06 05:38] VITALS: BP 146/65
[2019-04-06] MEDS: HEPARIN SOD (PORCINE) 5000 UNITS/ML VIAL SQ SCH ×3 (05:53→21:01)
[2019-04-06] MEDS: NORCO, ANEXSIA 5/325MG TABLET (HYDROcodone/ACETAMINOPHEN) PO PRN ×2 (06:32→19:30)
[2019-04-06 06:59] LABS: HEMATOCRIT 29.9 % (42.0-52.0); HEMOGLOBIN 9.9 g/dl (13.5-17.5); MEAN CORPUSCULAR HEMOGLOBIN 27.5 pg (27.0-33.0); MEAN CORPUSCULAR HGB CONC 33.1 g/dl (32.0-36.5); MEAN CORPUSCULAR VOLUME 83.1 fl (80.0-96.0); PLATELET COUNT, AUTOMATED 176 10^3/uL (150-450); WHITE BLOOD COUNT 9.1 10^3/uL (4.0-10.0)
[2019-04-06 07:20] LABS: BLOOD UREA NITROGEN 4 MG/DL (7-18); CALCIUM LEVEL 8.2 MG/DL (8.8-10.2); CARBON DIOXIDE LEVEL 26 MEQ/L (21-32); CHLORIDE LEVEL 106 MEQ/L (98-107); GLOMERULAR FILTRATION RATE > 60.0 (>49); GLUCOSE, FASTING 198 MG/DL (70-100); POTASSIUM SERUM 2.9 MEQ/L (3.5-5.1); SODIUM LEVEL 140 MEQ/L (136-145)
[2019-04-06] MEDS ORDERED: POTASSIUM CHLORIDE 10 MEQ SR TABLET PO ONE ×3 (07:45→18:45)
[2019-04-06] MEDS: NICOTINE 14 MG/24 HR TRANSDERMAL TD SCH (08:12)
[2019-04-06] MEDS: FLUCONAZOLE 100 MG TAB PO SCH (08:12)
[2019-04-06] MEDS: LEVEMIR (INSULIN DETEMIR) 1 UNITS/0.01ML SC SCH ×2 (08:13→21:02)
[2019-04-06] MEDS: HumaLOG INSULIN (NovoLOG) PER UNIT SC SCH ×4 (08:13→21:03)
[2019-04-06 09:02] LABS: MAGNESIUM LEVEL 1.7 MG/DL (1.8-2.4)
[2019-04-06] MEDS ORDERED: MAG SULF 1GM/100ML (MAG RUN) 1 GM in IV 1 EA IV ONE (11:00)
[2019-04-06] MEDS: MORPHINE 4 MG/ML 1ML VIAL/SYRINGE (J2270) IV PRN ×2 (11:48→21:02)
[2019-04-06] MEDS: SANTYL OINT 30GM TOP SCH (13:33)
--- NOTE | 2019-04-06 13:39 | IPNPDOC ---
Date Seen The patient was seen on 04/06/19. Progress Note SUBJECTIVE: Patient was seen and examined this morning. There have been no adverse events overnight. The patient denies any significant foot pain. He denies fevers or chills. He denies nausea or vomiting. Plans for a telemedicine visit with Dr. Og of wound care today. PHYSICAL EXAMINATION: VITAL SIGNS: Please see below. GENERAL: Awake, alert, and oriented. Lying in bed comfortably. Appears in no acute distress HEENT: Atraumatic normocephalic. Eyes are nonicteric. Trachea is midline. Dentition is fair. CARDIOVASCULAR: Normal S1, S2. Regular rate and rhythm. No clicks rubs or mu rmurs RESPIRATORY: Clear vesicular breath sounds bilaterally. Prolonged expiratory phase. No wheezes, rhonchi, or rales ABDOMINAL: Soft, nondistended. Nontender to palpation in all 4 quadrants. No r ebound tenderness or guarding. Normoactive bowel sounds EXTREMITIES: Right foot currently bandaged. No edema. decreased pulses on the left NEUROLOGICAL: No focal neurological deficits detected PSYCHOLOGICAL: Mood and affect appear appropriate LABORATORY DATA, IMAGING STUDIES, MICROBIOLOGY: Please see below. DVT prophylaxis ordered?: Heparin SQ ASSESSMENT AND PLAN: Patient is a 68 year old male who presented with a right foot cellulitis/wet gangrene and possible osteomyelitis PROBLEMS: 1. Right foot wet gangrene/cellulitis -Patient has a chronic right foot ulceration. He does have PVD and has had stent placement in his right femoral in the past. This was completed in [place]. -He is currently continued on Vancomycin and Zosyn. Wound cultures show Pseudomonas and Providencia. -Patient is being followed by Dr. Goodwin. Wound care orders are per Dr. Goodwin. Plans to have a telemedicine visit with Dr. Og of Wound Care today -Given patients noncompliance and recurrent chronic wound he may eventually need amputation 2. Lactic Acidosis -This has resolved and was likely secondary to necrotic tissue from his foot 3. Diabetes Mellitus Type 2 -HbgA1C is 9.0 -Levemir 5 units BID with sliding scale insulin coverage 4. Right axilla tinea -Continued on fluconazole 5. Nicotine dependence -Patient currently on nicotine patch VS, I&O, 24H, Fishbone Vital Signs/I&O Vital Signs Date Time Temp Pulse Resp B/P (MAP) Pulse Ox O2 Delivery O2 Flow Rate FiO2 04/06/19 11:48 18 04/06/19 05:38 98.4 76 146/65 (92) 99 04/05/19 16:51 2 04/04/19 16:53 Room Air I&O- Last 24 Hours up to 6 AM 04/06/19 06:00 Intake Total 2040 ml Output Total 1700 ml Balance 340 ml Laboratory Data 24H LABS Laboratory Tests 2 04/05/19 15:20: Lactic Acid Followup at 4 Hours 1.9 04/05/19 18:03: Bedside Glucose (Misc Panel) 119H 04/05/19 20:05: Bedside Glucose (Misc Panel) 176H 04/06/19 06:39: Nucleated Red Blood Cells % (auto) 0.0, Anion Gap 8, Glomerular Filtration Rate > 60.0, Blood Urea Nitrogen 4#L, Creatinine 0.90, Sodium Level 140, Potassium Level 2.9*L, Chloride Level 106, Carbon Dioxide Level 26, Calcium Level 8.2L, Magnesium Level 1.7L 04/06/19 13:17: Bedside Glucose (Misc Panel) 212H CBC/BMP Laboratory Tests 04/06/19 06:39 Red Blood Count 3.60 L, Mean Corpuscular Volume 83.1, Mean Corpuscular Hemoglobin 27.5, Mean Corpuscular Hemoglobin Concent 33.1, Red Cell Distribution Width 13.0, Calcium Level 8.2 L Microbiology Microbiology 04/04/19 Blood Culture - Preliminary, Resulted No Growth after 48 hours. All Specime... 04/04/19 Gram Stain - Final, Resulted 04/04/19 Wound Culture - Preliminary, Resulted Pseudomonas Aeruginosa Providencia Rettgeri 04/04/19 Blood Culture - Preliminary, Resulted No Growth after 48 hours. All Specime... GME ATTESTATION GME ATTESTATION My faculty preceptor for this patient encounter was physically present during the encounter and was fully available. All aspects of the patient interview, examination, medical decision making process, and medical care plan development were reviewed and approved by the faculty preceptor. The faculty preceptor is aware and concurs with the plan as stated in the body of this note and will a ttest to such by his/her cosignature. ATTENDING NOTE Patient was seen and examined by me this morning with the residents. Agree with the above assessment and plan LAURIE CASTELLANOS DO Apr 06, 2019 13:39 NESTOR COOPER MD Apr 07, 2019 08:43
[2019-04-06 14:45] VITALS: BP 128/66
[2019-04-06 16:18] LABS: POTASSIUM SERUM 3.4 MEQ/L (3.5-5.1)
--- NOTE | 2019-04-06 19:28 | CR ---
DATE OF CONSULTATION: 04/06/2019 CONSULTATION REQUESTED BY: Dr. Goodwin. This is regarding ischemic necrosis of the right lower extremity. Telemedicine consult. A 68-year-old male diabetic, poorly controlled with a longstanding history of arterial disease, previously treated with a right axillofemoral-femoral artery bypass which has remained patent. The patient was originally seen in treated at our advanced wound care center for ischemic necrosis of the right toes which improved and healed with the aid of hyperbaric oxygen, debridement and advanced wound care products. Recently, the patient developed wounds involving his right lower extremity,specifically his distal right foot and posterior distal calf and Achilles tendon region. The patient was referred to interventional radiology. An arteriogram with the possibility of angioplasty was performed on 03/16/[address] Ortega who found significant stenosis at the graft site involving the right common femoral artery which was not amenable to angioplasty. Her recommendation was to refer the patient to vascular surgery for an open repair.. He was referred to Dr. Salmon. Unfortunately for the patient, he the did not show up for his appointment. Two weeks later, he presented to [facility] emergency room, was found to have ischemic necrosis of the right distal foot and toes and extensive ischemic necrotic of the right distal calf and Achilles tendon region. Unbeknownst to our clinic, the patient underwent an arteriogram on 04/05/[address] Cedeño without any therapeutic intervention. It is unclear the indications for this, as the patient just had an arteriogram. There is no procedural report of his findings, and no documented plan of therapeutic treatment available. The patient has already had a previous arteriogram and the findings are not consistent with percutaneous angioplasty. This is a limb salvage case and without open surgical intervention, the patient is at a high risk for loss of limb. I discussed this case in detail with Dr. Goodwin, who is involved in the patient's care and who consulted me. He is aware of the gravity of the case and the surrounding issues and will discuss this with the vascular surgeon involved. We will be on standby to assist in the near future if postoperative wound care is required. At this point, temporizing treatment for the wounds should be to clean with Vashe. Santyl can be applied to the open, full-thickness wound areas which are to be covered with Hydrofera blue, transfer, followed by a foam dressing. In similar fashion, foam dressings should be placed between his right toes and a 'taco dressing' with Hydrofera Blue can be applied and secured loosely with a Kerlix dressing. Santyl will not penetrate a dry eschar but can be used on exposed full-thickness wounds. Supplemental dietary protein should be added in the terms of Glucerna and Mumtaz, and the patient's diabetes, which is poorly controlled, must be addressed, as his recent hemoglobin A1c is 9.5. A heel float boot should also be utilized to offload the patient's heal and prevent a hospital-acquired ischemic injury to that area. Thank you for this consultation. NOY
[2019-04-06] MEDS: ATORVASTATIN 20 MG TAB PO SCH (21:01)
--- NOTE | 2019-04-06 21:46 | PHACANCOPD ---
PHARMACY VANCOMYCIN DOSING Pt Demographics Demographics Patient Age:68 , Weight:67.000 , Gender: male Adjusted Body Weight Date: 04/06/19, Adjusted Body Weight: Kg Events Past 24 Hours Events Past 24 Hours: NO: Dialysis, Diuretic Therapy, Change in CrCl, Fever, Elevation in WBC, Pending Diagnostics, Pending Procedures, Other Vancomycin Vancomycin Target Ranges: 15-20 mcg/ml Vancomycin Load Y/N: Yes Load Dose Date Time Vancomycin Load Dose: 1750MG Date: 04-04 Time: Vancomycin Dose Date: 04/06/19. Current Vancomycin Dose: Intermittent Dosing?: No Labs Labs Item Value Date Time White Blood Count 9.1 10^3/uL 04/06/19 0639 Glomerular Filtration Rate > 60.0 04/06/19 0639 Creatinine 0.90 MG/DL 04/06/19 0639 Blood Urea Nitrogen 4 MG/DL L # 04/06/19 0639 Vancomycin Level Trough 7.7 UG/ML L 04/06/19 2100 Vital Signs Label Value Date Time Patient Temperature 98.7 degrees F 04/06/19 1445 Temperature Source Oral 04/06/19 1445 Micro Microbiology 04/04/19 Blood Culture - Preliminary, Resulted No Growth after 48 hours. All Specime... 04/04/19 Gram Stain - Final, Resulted 04/04/19 Wound Culture - Preliminary, Resulted Pseudomonas Aeruginosa Providencia Rettgeri 04/04/19 Blood Culture - Preliminary, Resulted No Growth after 48 hours. All Specime... Creatinine Clearance Date:04/06/19. Creatinine Clearance: [65]. Pending Labs Trough 04-07 @1300 Assessment and Plan Maintaining Current Dose?: No Reason for dose change: Trough too low Pharmacist Note Pharmacist Note Date: 04/06/19. Pharmacist note:Trough of 7.7 is below target range. Dosing increased to 1000mg q8h. Will continue to monitor and make adjustments as needed. PORTILLO MORA PHARMACY Apr 06, 2019 21:46
[2019-04-06 22:00] VITALS: BP 147/63
[2019-04-07] MEDS: PIPERACILLIN/TAZOBACTAM SOD 3.375 GM in D5W MINI-BAG PLUS 50 ML IV SCH ×4 (00:50→19:10)
[2019-04-07] MEDS: HEPARIN SOD (PORCINE) 5000 UNITS/ML VIAL SQ SCH ×3 (05:04→20:45)
[2019-04-07] MEDS: NORCO, ANEXSIA 5/325MG TABLET (HYDROcodone/ACETAMINOPHEN) PO PRN ×2 (05:05→20:30)
[2019-04-07] MEDS ORDERED: VANCOMYCIN HCL 1,000 MG, VIAL MATE ADAPTER 1 EACH in D5W 250 ML IV SCH (06:00)
[2019-04-07 06:35] VITALS: BP 145/62
[2019-04-07 07:27] LABS: HEMATOCRIT 34.5 % (42.0-52.0); HEMOGLOBIN 11.2 g/dl (13.5-17.5); MEAN CORPUSCULAR HGB CONC 32.5 g/dl (32.0-36.5); MEAN CORPUSCULAR VOLUME 86.3 fl (80.0-96.0); PLATELET COUNT, AUTOMATED 207 10^3/uL (150-450); WHITE BLOOD COUNT 8.9 10^3/uL (4.0-10.0)
[2019-04-07 07:53] LABS: BLOOD UREA NITROGEN 3 MG/DL (7-18); CALCIUM LEVEL 8.6 MG/DL (8.8-10.2); CARBON DIOXIDE LEVEL 29 MEQ/L (21-32); CHLORIDE LEVEL 104 MEQ/L (98-107); CREATININE FOR GFR 0.84 MG/DL (0.70-1.30); GLOMERULAR FILTRATION RATE > 60.0 (>49); GLUCOSE, FASTING 162 MG/DL (70-100); POTASSIUM SERUM 3.6 MEQ/L (3.5-5.1); SODIUM LEVEL 139 MEQ/L (136-145)
[2019-04-07] MEDS: SANTYL OINT 30GM TOP SCH (09:00)
[2019-04-07] MEDS: NICOTINE 14 MG/24 HR TRANSDERMAL TD SCH (09:38)
[2019-04-07] MEDS: FLUCONAZOLE 100 MG TAB PO SCH (09:38)
[2019-04-07] MEDS: HumaLOG INSULIN (NovoLOG) PER UNIT SC SCH ×4 (09:38→20:46)
[2019-04-07] MEDS: LEVEMIR (INSULIN DETEMIR) 1 UNITS/0.01ML SC SCH ×2 (09:39→20:46)
--- NOTE | 2019-04-07 12:06 | IPNPDOC ---
Date Seen The patient was seen on 04/07/19. Progress Note SUBJECTIVE: Patient was seen and examined this morning. He currently denies any pain. He had a telemedicine visit with Dr. Og of Wound Care yesterday. Patient has also received a bilateral lower extremity arteriogram. Plans are for possible bypass grafting this week with vascular surgery. Patient currently denies any chills, fevers, increased leg pain, chest pain, or shortness of breat h. There have been no adverse events reported overnight OBJECTIVE PHYSICAL EXAMINATION: VITAL SIGNS: Please see below. GENERAL: Awake, alert, and oriented. Lying in bed comfortably. Appears in no a cute distress HEENT: Atraumatic normocephalic. Eyes are nonicteric. Trachea is midline. Dentition is fair CARDIOVASCULAR: Normal S1, S2. Regular rate and rhythm. No clicks rubs or murmurs auscultated. No JVD or carotid bruits RESPIRATORY: Clear vesicular breath sounds bilaterally. Prolonged expiratory phase. No wheezes, rhonchi, or rales. No accessory muscle use ABDOMINAL: Soft, nondistended, nontender to palpation in all 4 quadrants. Positive bowel sounds throughout EXTREMITIES: No edema. Patients right foot is currently bandaged. He has decreased pulses in both lower extremities detectable on doppler. Left foot is without ulceration. Left foot/toe onchomycosis NEUROLOGICAL: No focal neurological deficits PSYCHOLOGICAL: Mood and affect appear appropriate LABORATORY DATA, IMAGING STUDIES, MICROBIOLOGY: Please see below. DVT prophylaxis ordered?: Heparin SQ ASSESSMENT AND PLAN: Patient is a 68 year old male with a right foot wet gangrene and failed right femoral stent. PROBLEMS: 1. Right foot wet gangrene/cellulitis/ischemia -Patient has chronic right foot ulceration likely secondary to poor arterial flow from occluded right femoral bypass graft. This is complicated by likely infection/wet gangrene. He has been on IV antibiotics with Pseudomonal coverage. -The patients poor healing is likely secondary to decreased blood flow. Patient is being followed by Vascular surgery who plans on performing a bypass graft this week. He is also being followed by Podiatry with plans for possible debridement once the patient receives vascular intervention/limb salvage. -Wound care managed per Dr. Og and Dr. Goodwin recommendations 2. Diabetes Mellitus Type 2 -Patient is a poorly controlled diabetic. HbgA1C is 9.0. He is on Levemir and sliding scale. As an inpatient will maintain BGL 140-180 however patient will need a tighter glycemic control once he is discharged. Will continue to monitor 3. Lactic Acidosis -This has resolved and was likely secondary to necrotic tissue from his foot 4. Right Axilla Tinea -Patient is receiving Fluconazole 5. Nicotine Dependence -Patient is continued on nicotine patch VS, I&O, 24H, Fishbone Vital Signs/I&O Vital Signs Date Time Temp Pulse Resp B/P (MAP) Pulse Ox O2 Delivery O2 Flow Rate FiO2 04/07/19 06:35 98.6 72 20 145/62 (89) 88 04/05/19 16:51 2 04/04/19 16:53 Room Air I&O- Last 24 Hours up to 6 AM 04/07/19 06:00 Intake Total 3300 ml Output Total 4100 ml Balance -800 ml Laboratory Data 24H LABS Laboratory Tests 2 04/06/19 13:17: Bedside Glucose (Misc Panel) 212H 04/06/19 15:49: Magnesium Level 2.0 04/06/19 17:21: Bedside Glucose (Misc Panel) 202H 04/06/19 20:44: Bedside Glucose (Misc Panel) 258H 04/06/19 21:00: Vancomycin Level Trough 7.7L 04/07/19 07:02: Nucleated Red Blood Cells % (auto) 0.0, Anion Gap 6L, Glomerular Filtration Rate > 60.0, Blood Urea Nitrogen 3L, Creatinine 0.84, Sodium Level 139, Potassium Level 3.6, Chloride Level 104, Carbon Dioxide Level 29, Calcium Level 8.6L, Magnesium Level 2.0 CBC/BMP Laboratory Tests 04/06/19 15:49 04/07/19 07:02 Red Blood Count 4.00 L, Mean Corpuscular Volume 86.3, Mean Corpuscular Hemoglobin 28.0, Mean Corpuscular Hemoglobin Concent 32.5, Red Cell Distribution Width 13.2, Calcium Level 8.6 L Microbiology Microbiology 04/04/19 Blood Culture - Preliminary, Resulted No Growth after 48 hours. All Specime... 04/04/19 Gram Stain - Final, Resulted 04/04/19 Wound Culture - Preliminary, Resulted Pseudomonas Aeruginosa Providencia Rettgeri 04/04/19 Blood Culture - Preliminary, Resulted No Growth after 72 hours. All specime... GME ATTESTATION GME ATTESTATION My faculty preceptor for this patient encounter was physically present during the encounter and was fully available. All aspects of the patient interview, exa mination, medical decision making process, and medical care plan development were reviewed and approved by the faculty preceptor. The faculty preceptor is aware and concurs with the plan as stated in the body of this note and will attest to such by his/her cosignature. ATTENDING NOTE Patient was seen and examined by me this morning with the residents. Agree with the above assessment and plan LAURIE CASTELLANOS DO Apr 07, 2019 12:06 NESTOR COOPER MD Apr 08, 2019 13:27
--- NOTE | 2019-04-07 13:58 | IPN ---
DATE: 04/07/2019 Patient seen and examined at the bedside. He denies overnight complaints. Labs are reviewed. White blood cell count is 8.9. Cultures grew Pseudomonas Providencia and carinii bacterium. These are all sensitive to Zosyn. Lower extremity examination: Wounds are slightly clear in appearance with less bioburden, however there is some further gangrenous changes along the dorsal foot. ASSESSMENT: Patient with diabetes, peripheral vascular disease, and cortical limb ischemia with gangrenous changes. PLAN: Discontinue vancomycin. Continue Zosyn. Discussed with Dr. Cedeño who states he will plan bypass surgery sometime this week. He was unable to fully open with the angio procedure. At this point, no debridement should be performed as he has no blood flow to heal any procedures. Continue dressings per Dr. Og's recommendations. Appreciate consultation. Will continue to follow. I did discuss with the patient ultimately if he is not able to have improvement in his blow flow he is at high risk for requiring a minimum of a lower leg amputation. Will follow.
[2019-04-07 15:06] VITALS: BP 141/61
[2019-04-07 20:45] VITALS: BP 147/66
[2019-04-07] MEDS: ATORVASTATIN 20 MG TAB PO SCH (20:45)
--- NOTE | 2019-04-07 21:05 | ROOPDOC ---
[facility] Report Of Operation Report of Operation DATE OF PROCEDURE: PREPROCEDURE DIAGNOSES: . POSTPROCEDURE DIAGNOSES: . PROCEDURE: Aortogram. iliofemoral angiogram. Selective right common femoral artery catheter placement with right lower extremity angiogram. Selective right superficial femoral artery catheter placement with right lower extremity angiogram. Selective right popliteal artery catheter placement with right lower extremity angiogram. Recanalization of the occluded superficial femoral artery and popliteal artery junction. Right popliteal artery angioplasty with 6 x 100 balloon. Right superficial femoral artery angioplasty with 6 x 100 balloon. Right common femoral artery angioplasty with 6 x 100 balloon. MYNX closure of the left common femoral arteriotomy. SURGEON: Dr. Debbie Cedeño MD BLEACHER OPERATOR: ANESTHESIA: Local with mL of 2% lidocaine INDICATION: The patient is a . The patient presents now with in the left foot and will undergo a left lower extremity angiogram with possible angioplasty, stent and/or arthrectomy. The procedure was described in detail to the patient. Risks, benefits and alternative treatment options were discussed with the patient. Alternative treatment options including but were not limited to no intervention. Benefits include but were not limited to evaluation of arterial inflow to the right lower extremity with possible intervention improving blood flow to the right foot. Risks included but were not limited to infection, bleeding, renal failure requiring hemodialysis, retroperitoneal hematoma, possible need for surgical intervention, allergic reaction and her complication from the prepping and draping materials, sedation related complication, possible requirement for transfusion of blood products, scarring of the skin, bruising, nerve injury, anesthetic complications, cerebrovascular accident, myocardial infarction, pulmonary embolus, deep venous thrombosis, loss of limb, loss of life and poor outcome. Patient's questions were answered. Patient voices understanding of these risks, benefits and alternative treatment options. Patient voices acceptance of the risks associated with left lower extremity angiogram with possible angioplasty, stent and/or atherectomy and agrees to proceed with the procedure excepting the associated risks of the procedure. SEDATION TIME:. The sedation was administered by . The cardiopulmonary monitoring during sedation was performed by . Administration of sedation and cardiopulmonary monitoring were performed under my direct supervision and direction. I was present for and directed the entire case. There were no sedation related complications. Patient was stable post sedation and returned to pre-sedation status. FLUORO TIME: minutes CONTRAST: mL of isovue 300 HEPARIN: units COMPLICATION: None DRAINS: None. SPECIMENS: None. IMPLANTS: Mynx closure device to close the femoral arteriotomy. DESCRIPTION OF PROCEDURE: The patient was taken to the angiography suite and placed supine on the angiography room table and then prepped and draped in a standard surgical fashion. A procedural time-out was conducted by myself and the team members in the room, confirming the correct procedure, patient and laterality. The left common femoral artery was then cannulated using a micropuncture needle after anesthetized the overlying skin with 2% lidocaine. A micropuncture wire was advanced through the micropuncture needle which was up-sized to a micropuncture sheath. The Mattson wire was then advanced through the micropuncture sheath which was up-sized to a 5 Prydeinig sheath. The Omni flush catheter was advanced over the Mattson wire placed in the aorta and an aortogram was performed. The Omni flush catheter was pulled down to the level of the bifurcation of the iliac arteries and and iliofemoral angiogram was performed. The Omni flush catheter was advanced up and over the bifurcation of the iliac arteries using the Mattson wire, with some difficulty due to the calcific atherosclerotic plaque at the bifurcation of the iliac arteries. The Omni flush catheter was placed in the right common femoral artery and a right lower extremity angiogram was performed showing diffuse moderate atherosclerotic arterial occlusive disease in the common femoral artery above the junction of the superficial femoral and profunda femoris arteries as well as diffuse mild to moderate superficial femoral arterial atherosclerotic disease down to the junction of the popliteal artery where there was occlusion of the superficial femoral and popliteal artery junction. The popliteal artery in the above and below knee region showed diffuse moderate atherosclerotic arterial occlusive disease.. The Mattson wire was then used to bring a 6 Prydeinig destination sheath up and over the bifurcation of the iliac arteries with the tip of the destination sheath was placed in the right common femoral artery. The patient was given 7000 units of heparin. The angled glide catheter was advanced selectively into the superficial femoral artery and used to cross the occlusion in the superficial femoral and popliteal arteries with multiple angiograms performed during the crossing of the occlusion. The angled glide catheter was advanced into the popliteal artery and a selective popliteal artery angiogram was performed confirming intraluminal positioning after crossing the occluded superficial femoral and popliteal arteries. After the occlusion was crossed angioplasty of the common femoral, superficial femoral, and popliteal arteries were performed with a 6 x 100 balloon. The completion angiogram showed resolution of the stenosis and occlusion with good flow into the right lower extremity. The left common femoral destination sheath was exchanged for a short 6 Prydeinig sheath over a Mattson wire. The left common femoral arteriotomy was closed using a 5 Prydeinig Mynx closure devices with an additional 10 minutes of adjunctive pressure applied for hemostasis. Patient tolerated the procedure well. All instrument, sponge and needle counts were correct at the end of the case. Dr. Cedeño was present for and directed the entire case. Patient was transferred to the recovery area awake, alert and in stable condition. RADIOLOGIC SUPERVISION AND INTERPRETATION: The aortogram showed the suprarenal aorta to be widely patent with good filling of the intercostal arteries. The superior mesenteric and celiac artery were widely patent. The renal arteries were patent bilaterally. The infrarenal aorta showed some atherosclerotic plaquing but was patent. The inferior mesenteric artery was not visualized. The iliofemoral angiogram showed good filling of the lumbar vessels in the infrarenal aorta. The infrarenal aorta showed some atherosclerotic plaquing but was patent. The inferior mesenteric artery was not visualized. The left common iliac, external iliac and internal iliac arteries were widely patent. The left common femoral artery, proximal superficial femoral artery and proximal profunda femoris artery were patent There was no visualization of the left lower extremity below the puncture site. The right common iliac, external iliac and internal iliac arteries were patent. There was mild calcific atherosclerotic arterial occlusive disease in the common femoral artery just above the bifurcation of the superficial femoral and profunda femoris arteries. The selective right common femoral artery catheter placement and angiogram showed the common femoral artery to have mild to moderate atherosclerotic arterial occlusive disease just above the junction of the superficial femoral and profunda femoris arteries. The profunda femoris artery was patent. The superficial femoral artery was patent to the junction of the popliteal artery where there was a short segment occlusion. There was diffuse atherosclerotic arterial occlusive disease along the course of the superficial femoral artery. The angled glide catheter was advanced into the superficial femoral artery selectively and angiogram was performed and then the catheter was used to cross the occlusion in the superficial femoral and popliteal arteries. The angled glide catheter was advanced into the popliteal artery and a selective popliteal artery angiogram was performed confirming intraluminal positioning and showing diffuse moderate atherosclerotic arterial occlusive disease in the above and below knee popliteal artery. The runoff in the below-knee region was via the peroneal artery which was patent into the distal calf with reconstitution of the anterior tibial artery and posterior tibial artery via collaterals from the peroneal artery. The posterior tibial artery occluded shortly after its takeoff and was reconstituted at the ankle via collaterals from the peroneal artery. The anterior tibial artery occluded shortly after its takeoff and reconstituted ankle via collaterals off the peroneal artery. The tibial peroneal trunk showed an approximate 50% stenosis in its midportion. The posterior tibial artery was small in the arch of the foot. The dorsalis pedis artery was patent into the dorsum of the foot and an occluded in the dorsum of the foot. Once intraluminal positioning was confirmed within the right popliteal artery below the superficial femoral artery and popliteal artery occlusion the right popliteal artery was angioplastied with the 6 x 100 mm balloon. The right superficial femoral artery was angioplastied with 6 x 100 mm balloon. The right common femoral artery was angioplastied with the 6 x 100 mm balloon. A completion angiogram showed resolution of the stenoses with good flow through the common femoral artery, superficial femoral artery and popliteal arteries with preserved tibial vessel runoff. The arteriotomy in the left femoral artery was closed using a Mynx closure device. Barron Cedeño MD Apr 07, 2019 21:05
--- NOTE | 2019-04-07 21:08 | IPNPDOC ---
Subjective General Date/Time Seen The patient was seen on 04/07/19 at 21:07. Subject Chief Complaint/History The patient is a 68-year-old male admitted with a reason for visit of Foot Ulcer Rt. Current Medications Current Medications Current Medications Medications (Trade) Dose Ordered Sig/Jess Route PRN Reason Start Time Stop Time Status Last Admin Dose Admin Acetaminophen (Tylenol Tab) 650 mg Q4H PRN PO PAIN OR FEVER 04/04/19 14:00 04/04/19 23:04 Acetaminophen/ Hydrocodone Bitart ([place], Anexsia 5/325) 1 tab Q6HP PRN PO MILD/MODERATE PAIN (PS 1-7) 04/05/19 11:00 04/07/19 20:30 Atorvastatin Calcium (Lipitor) 80 mg QHS PO 04/05/19 21:00 04/07/19 20:45 Collagenase (Santyl) 1 dose DAILY TOP 04/06/19 12:45 04/06/19 13:33 Dextrose (Dextrose 50%) 25 ml ASDIRECTED PRN IV SEE LABEL COMMENTS 04/04/19 14:30 Fluconazole (Diflucan) 200 mg DAILY PO 04/05/19 09:00 04/07/19 09:38 Glucagon (Glucagon) 1 mg ASDIRECTED PRN SC SEE LABEL COMMENTS 04/04/19 14:30 Glucose (Glucose) 16 GM ASDIRECTED PRN PO SEE LABEL COMMENTS 04/04/19 14:30 Heparin Sodium (Porcine) (Heparin) 5,000 units Q8H SQ 04/04/19 14:00 04/07/19 20:45 Home Med (Med Rec Complete!) ASDIRECTED XX 04/04/19 12:30 04/04/19 12:30 DC Insulin Detemir (Levemir Insulin) 5 units BID SC 04/05/19 09:00 04/07/19 20:46 Insulin Human Lispro (HumaLOG INSULIN) SEE PROTOCOL TABLE AC SC 04/04/19 17:30 04/07/19 18:09 Insulin Human Lispro (HumaLOG INSULIN) SEE PROTOCOL TABLE QHS SC 04/04/19 21:00 04/06/19 21:03 Morphine Sulfate (Morphine Sulfate Inj) 1 mg Q4HP PRN IV PAIN 04/05/19 11:00 04/06/19 21:02 Nicotine (Nicoderm Cq 14mg) 1 patch DAILY TD 04/05/19 09:00 04/07/19 09:38 Piperacillin Sod/ Tazobactam Sod 3.375 gm/Dextrose 50 ml @ 50 mls/hr Q6H IV 04/04/19 19:00 04/07/19 19:10 Sodium Chloride 1,000 ml @ 100 mls/hr Q10H IV 04/05/19 10:45 04/06/19 10:48 DC 04/06/19 05:30 Vancomycin HCl 1000 mg/IV Miscellaneous Supplies 20 ml @ 20 mls/hr Q12H IV 04/04/19 14:00 04/04/19 14:58 DC Vancomycin HCl 1000 mg/IV Miscellaneous Supplies 1 each/ Dextrose 270 ml @ 270 mls/hr Q18H IV 04/05/19 05:00 04/05/19 05:00 DC Vancomycin HCl 1000 mg/IV Miscellaneous Supplies 1 each/ Dextrose 270 ml @ 270 mls/hr Q18H IV 04/05/19 10:00 04/06/19 23:59 DC 04/06/19 21:01 Vancomycin HCl 1000 mg/IV Miscellaneous Supplies 1 each/ Dextrose 270 ml @ 270 mls/hr Q8H IV 04/07/19 06:00 04/07/19 08:38 DC 04/07/19 05:04 Allergies Coded Allergies: ibuprofen (Verified Allergy, Severe, TROUBLE BREATHING, 04/04/19) strawberry (Verified Allergy, Severe, THROAT SWELLING, 04/04/19) VS, I&O, 24H, Fishbone Vital Signs/I&O Vital Signs Date Time Temp Pulse Resp B/P (MAP) Pulse Ox O2 Delivery O2 Flow Rate FiO2 04/07/19 20:45 98.6 72 18 147/66 (93) 98 04/05/19 16:51 2 04/04/19 16:53 Room Air I&O- Last 24 Hours up to 6 AM 04/07/19 06:00 Intake Total 3300 ml Output Total 4100 ml Balance -800 ml Laboratory Data 24H LABS Laboratory Tests 2 04/07/19 07:02: Nucleated Red Blood Cells % (auto) 0.0, Anion Gap 6L, Glomerular Filtration Rate > 60.0, Blood Urea Nitrogen 3L, Creatinine 0.84, Sodium Level 139, Potassium Level 3.6, Chloride Level 104, Carbon Dioxide Level 29, Calcium Level 8.6L, Magn esium Level 2.0 04/07/19 11:50: Bedside Glucose (Misc Panel) 281H 04/07/19 16:57: Bedside Glucose (Misc Panel) 161H 04/07/19 20:35: Bedside Glucose (Misc Panel) 198H CBC/BMP Laboratory Tests 04/07/19 07:02 Red Blood Count 4.00 L, Mean Corpuscular Volume 86.3, Mean Corpuscular Hemoglobin 28.0, Mean Corpuscular Hemoglobin Concent 32.5, Red Cell Distribution Width 13.2, Calcium Level 8.6 L Microbiology Microbiology 04/04/19 Blood Culture - Preliminary, Resulted No Growth after 72 hours. All specime... 04/04/19 Gram Stain - Final, Complete 04/04/19 Wound Culture - Final, Complete Pseudomonas Aeruginosa Providencia Rettgeri Corynebacterium Species 04/04/19 Blood Culture - Preliminary, Resulted No Growth after 72 hours. All specime... Barron Cedeño MD Apr 07, 2019 21:08
[2019-04-08] MEDS: PIPERACILLIN/TAZOBACTAM SOD 3.375 GM in D5W MINI-BAG PLUS 50 ML IV SCH ×4 (01:19→19:58)
[2019-04-08] MEDS: HEPARIN SOD (PORCINE) 5000 UNITS/ML VIAL SQ SCH ×3 (06:12→21:35)
[2019-04-08 06:51] LABS: HEMATOCRIT 33.2 % (42.0-52.0); HEMOGLOBIN 10.8 g/dl (13.5-17.5); MEAN CORPUSCULAR HEMOGLOBIN 27.4 pg (27.0-33.0); MEAN CORPUSCULAR HGB CONC 32.5 g/dl (32.0-36.5); MEAN CORPUSCULAR VOLUME 84.3 fl (80.0-96.0); PLATELET COUNT, AUTOMATED 221 10^3/uL (150-450); RED BLOOD COUNT 3.94 10^6/uL (4.30-6.10); WHITE BLOOD COUNT 8.4 10^3/uL (4.0-10.0)
[2019-04-08 07:22] VITALS: BP 137/86
[2019-04-08 07:22] LABS: BLOOD UREA NITROGEN 4 MG/DL (7-18); CALCIUM LEVEL 8.8 MG/DL (8.8-10.2); CARBON DIOXIDE LEVEL 29 MEQ/L (21-32); CHLORIDE LEVEL 105 MEQ/L (98-107); CREATININE FOR GFR 0.86 MG/DL (0.70-1.30); GLOMERULAR FILTRATION RATE > 60.0 (>49); GLUCOSE, FASTING 132 MG/DL (70-100); POTASSIUM SERUM 3.8 MEQ/L (3.5-5.1); SODIUM LEVEL 140 MEQ/L (136-145)
[2019-04-08] MEDS: LEVEMIR (INSULIN DETEMIR) 1 UNITS/0.01ML SC SCH ×2 (08:51→21:35)
[2019-04-08] MEDS: FLUCONAZOLE 100 MG TAB PO SCH (08:51)
[2019-04-08] MEDS: HumaLOG INSULIN (NovoLOG) PER UNIT SC SCH ×4 (08:51→21:00)
[2019-04-08] MEDS: SANTYL OINT 30GM TOP SCH (08:52)
[2019-04-08] MEDS: NICOTINE 14 MG/24 HR TRANSDERMAL TD SCH (08:52)
[2019-04-08] MEDS: NORCO, ANEXSIA 5/325MG TABLET (HYDROcodone/ACETAMINOPHEN) PO PRN ×2 (08:56→21:46)
--- NOTE | 2019-04-08 14:07 | IPNPDOC ---
Date Seen The patient was seen on 04/08/19. Progress Note SUBJECTIVE: Patient was seen and examined overnight. There were no adverse events reported overnight. Patient is planned for bypass grafting tomorrow AM. He currently has no new complaints. He denies any chest pain, shortness of breath. He denies any leg pain. OBJECTIVE PHYSICAL EXAMINATION: VITAL SIGNS: Please see below. GENERAL: Awake, alert, and oriented. Appears in no acute distress. Lying comfortably in bed. HEENT: Atraumatic normocephalic. Eyes are nonicteric. Trachea is midline. No cervical, supraclavicular, or axillary lymphadenopathy CARDIOVASCULAR: Normal S1, S2. Regular rate and rhythm. No clicks rubs or murmurs noted. No JVD RESPIRATORY: Clear vesicular breath sounds bilaterally with good respiratory effort. No wheezes, rhonchi, or rales ABDOMINAL: Soft, nondistended. Nontender to palpation in all 4 quadrants. No rebound tenderness or guarding. Normoactive bowel sounds EXTREMITIES: no edema. Right foot bandaged. Diminished pulses bilaterally. Dorsalis pedis pulses detected via Doppler on left NEUROLOGICAL: No focal neurological deficits PSYCHOLOGICAL: Mood and affect appear appropriate LABORATORY DATA, IMAGING STUDIES, MICROBIOLOGY: Please see below. DVT prophylaxis ordered?: YES ASSESSMENT AND PLAN: Patient is a 68 year old male who presented to [facility] ER with right foot wet gangrene and a chronically failed right femoral stent. Patient has been followed outpatient by podiatry and wound care for management of his chronically nonhealing right foot wound. Patient has significant vascular disease and multiple failed revascularization attempts. Patient is currently planned for bypass grafting tomorrow AM for limb ischemia. He will likely receive wound debridement in the near future depending on the results of his bypass grafting. Patient remains at high risk from limb amputation secondary to his chronic limb ischemia and nonhealing right foot wounds PROBLEMS: 1. 1. Right foot wet gangrene/cellulitis/ischemia -Patient has chronic right foot ulceration likely secondary to poor arterial flow from occluded right femoral bypass graft. This is complicated by likely infection/wet gangrene. He has been on IV antibiotics with Pseudomonal coverage. -The patients poor healing is likely secondary to decreased blood flow. Patient is scheduled for bypass grafting with vascular surgery tomorrow AM. -Wound care managed per Dr. Og and Dr. Goodwin recommendations -Patient remains at high risk for limb amputation due to his chronic limb i schemia and chronic nonhealing right foot wounds. 2. Diabetes Mellitus Type 2 -Patient is a poorly controlled diabetic. HbgA1C is 9.0. He is on Levemir and sliding scale. -Increase Levemir dose to 6 units BID. Will continue to monitor and adjust as needed 3. Lactic Acidosis -Resolved 4. Right Axilla Tinea -Patient is receiving Fluconazole 5. Nicotine Dependence -Patient is continued on nicotine patch VS, I&O, 24H, Fishbone Vital Signs/I&O Vital Signs Date Time Temp Pulse Resp B/P (MAP) Pulse Ox O2 Delivery O2 Flow Rate FiO2 04/08/19 10:51 16 04/08/19 07:22 97.6 78 137/86 (103) 96 04/05/19 16:51 2 04/04/19 16:53 Room Air I&O- Last 24 Hours up to 6 AM 04/08/19 05:59 Intake Total 2010 ml Output Total 3150 ml Balance -1140 ml Laboratory Data 24H LABS Laboratory Tests 2 04/07/19 16:57: Bedside Glucose (Misc Panel) 161H 04/07/19 20:35: Bedside Glucose (Misc Panel) 198H 04/08/19 06:25: Nucleated Red Blood Cells % (auto) 0.0, Anion Gap 6L, Glomerular Filtration Rate > 60.0, Blood Urea Nitrogen 4L, Creatinine 0.86, Sodium Level 140, Potassium Level 3.8, Chloride Level 105, Carbon Dioxide Level 29, Calcium Level 8.8 04/08/19 12:13: Bedside Glucose (Misc Panel) 280H CBC/BMP Laboratory Tests 04/08/19 06:25 Red Blood Count 3.94 L, Mean Corpuscular Volume 84.3, Mean Corpuscular Hemoglobin 27.4, Mean Corpuscular Hemoglobin Concent 32.5, Red Cell Distribution Width 13.2, Calcium Level 8.8 Microbiology Microbiology 04/04/19 Blood Culture - Preliminary, Resulted No Growth after 72 hours. All specime... 04/04/19 Gram Stain - Final, Complete 04/04/19 Wound Culture - Final, Complete Pseudomonas Aeruginosa Providencia Rettgeri Corynebacterium Species 04/04/19 Blood Culture - Preliminary, Resulted No Growth after 72 hours. All specime... GME ATTESTATION GME ATTESTATION My faculty preceptor for this patient encounter was physically present during the encounter and was fully available. All aspects of the patient interview, examination, medical decision making process, and medical care plan development were reviewed and approved by the faculty preceptor. The faculty preceptor is aware and concurs with the plan as stated in the body of this note and will attest to such by his/her cosignature. ATTENDING NOTE Patient was seen and examined by me this morning with the residents. Agree with the above assessment and plan GME ATTESTATION GME ATTESTATION My faculty preceptor for this patient encounter was physically present during the encounter and was fully available. All aspects of the patient interview, examination, medical decision making process, and medical care plan development were reviewed and approved by the faculty preceptor. The faculty preceptor is aware and concurs with the plan as stated in the body of this note and will attest to such by his/her cosignature. LAURIE CASTELLANOS DO Apr 08, 2019 14:07 NESTOR COOPER MD Apr 09, 2019 16:54
[2019-04-08 16:04] VITALS: BP 136/85
--- NOTE | 2019-04-08 19:40 | REP ---
BILATERAL LOWER EXTREMITY VENOUS ULTRASOUND 04/08/2019. CLINICAL HISTORY: Greater saphenous vein vein mapping for possible femoral popliteal bypass. RIGHT GREATER SAPHENOUS VEIN: Junction: 5.1 mm Proximal: 5.1 mm Mid: 3.7 mm Technique: 3 mm Proximal calf: 2.8 mm Mid calf: 2.9 mm Distal calf: 3.2 mm. LEFT GREATER SAPHENOUS VEIN: Junction: 3.6 mm Proximal 3.6 mm. Mid: 2.4 mm Knee: 2.8 mm Proximal calf: 2.2 mm Mid calf: 2.0 mm Distal calf: 2.5 mm IMPRESSION: 1. Greater saphenous vein mapping as described above and technologist notes indicate that the requesting physician was present during the exam and desired only the greater saphenous evaluation. Electronically Signed by Duglas Romero MD 04/08/2019 07:32 P
--- NOTE | 2019-04-08 19:42 | IPNPDOC ---
Date Seen The patient was seen on 04/08/19. Progress Note I was asked to take over the vascular care of this patient by Dr Cedeño since he is no longer at this institution. I met with the patient tonight and we had a long talk about his vascular disease. I ordered a vein mapping and was present when it was completed. He appears to have suitable R GSV for a profunda popliteal bypass. We will plan for this tomorrow for limb salvage due to worsening ischemic changes of his right foot and rest pain. Unclear if too much ischemic time has passed to salvage the foot, but if there is not ascending wet gangrene tomorrow, then I think it is worth trying the bypass. If the foot is not salvageable, we will discuss options for amputation. He does not want me to look at his foot tonight but says I can see it tomorrow. Risks, benefits and alternatives to a RLE bypass were extensively discussed with the patient and he is agreeable to proceed, and informed consent was obtained. Plan to proceed tomorrow ~noon or 1pm. VS, I&O, 24H, Percy Vital Signs/I&O Vital Signs Date Time Temp Pulse Resp B/P (MAP) Pulse Ox O2 Delivery O2 Flow Rate FiO2 04/08/19 16:04 99.0 72 18 136/85 (102) 97 04/05/19 16:51 2 04/04/19 16:53 Room Air I&O- Last 24 Hours up to 6 AM 04/08/19 06:00 Intake Total 1440 ml Output Total 3650 ml Balance -2210 ml Laboratory Data 24H LABS Laboratory Tests 2 04/07/19 20:35: Bedside Glucose (Misc Panel) 198H 04/08/19 06:25: Nucleated Red Blood Cells % (auto) 0.0, Anion Gap 6L, Glomerular Filtration Rate > 60.0, Blood Urea Nitrogen 4L, Creatinine 0.86, Sodium Level 140, Potassium Level 3.8, Chloride Level 105, Carbon Dioxide Level 29, Calcium Level 8.8 04/08/19 12:13: Bedside Glucose (Misc Panel) 280H 04/08/19 17:22: Bedside Glucose (Misc Panel) 228H CBC/BMP Laboratory Tests 04/08/19 06:25 Red Blood Count 3.94 L, Mean Corpuscular Volume 84.3, Mean Corpuscular Hemoglobin 27.4, Mean Corpuscular Hemoglobin Concent 32.5, Red Cell Distribution Width 13.2, Calcium Level 8.8 Microbiology Microbiology 04/04/19 Blood Culture - Preliminary, Resulted No Growth after 72 hours. All specime... 04/04/19 Gram Stain - Final, Complete 04/04/19 Wound Culture - Final, Complete Pseudomonas Aeruginosa Providencia Rettgeri Corynebacterium Species 04/04/19 Blood Culture - Preliminary, Resulted No Growth after 72 hours. All specime... RICHY CHILDRESS MD Apr 08, 2019 19:42
[2019-04-08 19:54] VITALS: BP 147/83
[2019-04-08] MEDS: ATORVASTATIN 20 MG TAB PO SCH (21:34)
[2019-04-09] MEDS: PIPERACILLIN/TAZOBACTAM SOD 3.375 GM in D5W MINI-BAG PLUS 50 ML IV SCH ×4 (02:06→17:58)
[2019-04-09 06:02] VITALS: BP 140/68
[2019-04-09] MEDS: HEPARIN SOD (PORCINE) 5000 UNITS/ML VIAL SQ SCH ×3 (06:32→21:14)
[2019-04-09 06:49] LABS: HEMATOCRIT 36.2 % (42.0-52.0); HEMOGLOBIN 11.8 g/dl (13.5-17.5); MEAN CORPUSCULAR HEMOGLOBIN 27.9 pg (27.0-33.0); MEAN CORPUSCULAR HGB CONC 32.6 g/dl (32.0-36.5); MEAN CORPUSCULAR VOLUME 85.6 fl (80.0-96.0); PLATELET COUNT, AUTOMATED 233 10^3/uL (150-450); RED BLOOD COUNT 4.23 10^6/uL (4.30-6.10); WHITE BLOOD COUNT 7.4 10^3/uL (4.0-10.0)
[2019-04-09 07:06] LABS: BLOOD UREA NITROGEN 6 MG/DL (7-18); CALCIUM LEVEL 8.7 MG/DL (8.8-10.2); CARBON DIOXIDE LEVEL 26 MEQ/L (21-32); CHLORIDE LEVEL 105 MEQ/L (98-107); CREATININE FOR GFR 0.94 MG/DL (0.70-1.30); GLOMERULAR FILTRATION RATE > 60.0 (>49); GLUCOSE, FASTING 234 MG/DL (70-100); POTASSIUM SERUM 4.1 MEQ/L (3.5-5.1); SODIUM LEVEL 140 MEQ/L (136-145)
[2019-04-09] MEDS: HumaLOG INSULIN (NovoLOG) PER UNIT SC SCH ×4 (07:30→21:13)
[2019-04-09 07:31] LABS: INR 1.08; PROTHROMBIN TIME 13.8 SECONDS (11.8-14.0)
[2019-04-09 07:32] LABS: PARTIAL THROMBOPLASTIN TIME 22.2 SECONDS (25.0-38.4)
[2019-04-09] MEDS: FLUCONAZOLE 100 MG TAB PO SCH (08:37)
[2019-04-09] MEDS: LEVEMIR (INSULIN DETEMIR) 1 UNITS/0.01ML SC SCH ×2 (08:37→21:13)
[2019-04-09] MEDS: NICOTINE 14 MG/24 HR TRANSDERMAL TD SCH (08:38)
[2019-04-09] MEDS: SANTYL OINT 30GM TOP SCH (08:40)
--- NOTE | 2019-04-09 12:48 | IPNPDOC ---
Text Note Date of Service The patient was seen on 04/09/19. NOTE Patient was seen and examined this morning. The patient currently is awaiting a possible bypass graft by vascular surgery today. Complains of no pain. Surgical dressing is well dressed without any oosing or gaining PHYSICAL EXAMINATION: GENERAL: Awake, alert, and oriented. Appears in no acute distress. Lying comfortably in bed. HEENT: Atraumatic normocephalic. Eyes are nonicteric CARDIOVASCULAR: Normal S1, S2. Regular rate and rhythm. No clicks rubs or murmurs noted. No JVD RESPIRATORY: Clear vesicular breath sounds bilaterally with good respiratory effort. No wheezes, rhonchi, or rales ABDOMINAL: Soft, nondistended. Nontender to palpation in all 4 quadrants. No re bound tenderness or guarding. Normoactive bowel sounds EXTREMITIES: no edema. Right foot bandaged. Diminished pulses bilaterally. On 04/08/19. The dressing was opened and the patient was having good granulation tissue over the plantar aspect of the foot with possible dry gangrene of the great toe and discoloration of the next 2 toes. NEUROLOGICAL: No focal neurological deficits PSYCHOLOGICAL: Mood and affect appear appropriate Assessment and plan Patient is a 68 year old male who presented to [facility] with right foot wet gangrene with multiple skin lesions on the plantar aspect of the foot as well as about the heel and a chronically failed right femoral stent. Patient has been followed outpatient by podiatry and wound care for management of his chronically nonhealing right foot wound. Patient has significant vascular disease and multiple failed revascularization attempts. Patient is currently planned for bypass grafting AM for limb ischemia. He will likely receive wound debridement versus amputation in the near future depending on the results of his bypass grafting. Patient remains at high risk from limb amputation secondary to his chronic limb ischemia and nonhealing right foot wounds. The patient also has Pseudomonas growing in the wound. For that reason, the patient continues to be on IV Zosyn 1. Right foot wet gangrene/cellulitis/ischemia : The patient currently is on IV Zosyn and would require vascularization because of the CT angiogram results for doing any debridement versus amputation. Wound care, as well as vascular surgery is on board. Pseudomonas was crying on the wound cultures, and for that reason, the patient has been kept on IV Zosyn. 2. Diabetes Mellitus Type 2 : Patient is a poorly controlled diabetic. HbgA1C is 9.0. He is on Levemir and sliding scale. Increase Levemir dose to 6 units BID. Will continue to monitor and adjust as needed 3. Lactic Acidosis : Resolved 4. Right Axilla Tinea : Patient is receiving Fluconazole 5. Nicotine Dependence : Patient is continued on nicotine patch DVT, GI prophylaxis Disposition unknown at this time. VS,Fishbone, I+O VS, Fishbone, I+O Laboratory Tests 04/09/19 06:25 Red Blood Count 4.23 L, Mean Corpuscular Volume 85.6, Mean Corpuscular Hemoglobin 27.9, Mean Corpuscular Hemoglobin Concent 32.6, Red Cell Distribution Width 13.2, Calcium Level 8.7 L Vital Signs Date Time Temp Pulse Resp B/P (MAP) Pulse Ox O2 Delivery O2 Flow Rate FiO2 04/09/19 06:02 98.0 74 20 140/68 (92) 96 04/05/19 16:51 2 04/04/19 16:53 Room Air I&O- Last 24 Hours up to 6 AM 04/09/19 06:00 Intake Total 1600 ml Output Total 2815 ml Balance -1215 ml NESTOR COOPER MD Apr 09, 2019 12:48
[2019-04-09] MEDS: NORCO, ANEXSIA 5/325MG TABLET (HYDROcodone/ACETAMINOPHEN) PO PRN ×2 (13:25→21:20)
--- NOTE | 2019-04-09 13:45 | IPNPDOC ---
Date Seen The patient was seen on 04/09/19. Progress Note Pt seen and examined. We planned to do a RLE profunda-popliteal bypass today with vein, but multiple emergent cases continue to be added on, and now the scheduled case before his is estimated to start after 5pm, and it is a 3-4 hour case, thus we would be starting his bypass (if no other emergent cases come up) after 9pm. I discussed this with him and gave him the option to wait and still do surgery tonight vs try in the morning. He is very hungry and wants to wait until morning. It took a lot of convincing, but he let me undress his right foot today and look at it. He has tissue loss to bone over the entire dorsum of his foot, and minimal salvageable tissue over a few toes, and a large deep eschar over the achilles as well. In my opinion, there will not be an option to salvage the foot at this point. However, I think we should still try to do the bypass because it may make a below knee amputation possible. I had a very nany conversation with the patient about this today, and he understands his prognosis for foot salvage is poor. We will see what happens after revascularization. Plan: Eat now, NPO p MN. Hold his 2G Ancef for preop tomorrow. Profunda- popliteal bypass with vein in the a.m. VS, I&O, 24H, Fishbone Vital Signs/I&O Vital Signs Date Time Temp Pulse Resp B/P (MAP) Pulse Ox O2 Delivery O2 Flow Rate FiO2 04/09/19 13:25 20 04/09/19 06:02 98.0 74 140/68 (92) 96 04/05/19 16:51 2 04/04/19 16:53 Room Air I&O- Last 24 Hours up to 6 AM 04/09/19 06:00 Intake Total 1600 ml Output Total 2815 ml Balance -1215 ml Laboratory Data 24H LABS Laboratory Tests 2 04/08/19 17:22: Bedside Glucose (Misc Panel) 228H 04/08/19 19:56: Bedside Glucose (Misc Panel) 147H 04/09/19 06:25: Nucleated Red Blood Cells % (auto) 0.0, Prothrombin Time 13.8, Prothromb Time International Ratio 1.08, Activated Partial Thromboplast Time 22.2L, Anion Gap 9, Glomerular Filtration Rate > 60.0, Blood Urea Nitrogen 6L, Creatinine 0.94, Sodium Level 140, Potassium Level 4.1, Chloride Level 105, Carbon Dioxide Level 26, Calcium Level 8.7L 04/09/19 11:50: Bedside Glucose (Misc Panel) 168H CBC/BMP Laboratory Tests 04/09/19 06:25 Red Blood Count 4.23 L, Mean Corpuscular Volume 85.6, Mean Corpuscular Hemoglobin 27.9, Mean Corpuscular Hemoglobin Concent 32.6, Red Cell Distribution Width 13.2, Calcium Level 8.7 L Microbiology Microbiology 04/04/19 Blood Culture - Final, Complete NO GROWTH AFTER 5 DAYS 04/04/19 Gram Stain - Final, Complete 04/04/19 Wound Culture - Final, Complete Pseudomonas Aeruginosa Providencia Rettgeri Corynebacterium Species 04/04/19 Blood Culture - Final, Complete NO GROWTH AFTER 5 DAYS RICHY CHILDRESS MD Apr 09, 2019 13:45
[2019-04-09 14:00] VITALS: BP 169/75
[2019-04-09] MEDS ORDERED: ceFAZolin SOD 2 GM in IV 1 EA IV ONE (14:00)
[2019-04-09] MEDS: ATORVASTATIN 20 MG TAB PO SCH (21:11)
[2019-04-09 22:00] VITALS: BP 164/60
[2019-04-10] VITALS (8 sets, daily range): BP systolic 99–166; BP diastolic 53–63
[2019-04-10] MEDS: PIPERACILLIN/TAZOBACTAM SOD 3.375 GM in D5W MINI-BAG PLUS 50 ML IV SCH ×4 (00:35→18:38)
[2019-04-10] MEDS: HEPARIN SOD (PORCINE) 5000 UNITS/ML VIAL SQ SCH ×3 (05:30→21:01)
[2019-04-10] MEDS: HumaLOG INSULIN (NovoLOG) PER UNIT SC SCH ×4 (07:30→21:01)
[2019-04-10] MEDS ORDERED: BUPIVACAINE/EPIN 0.5% 30 ML VIAL As Ordered ONE (07:50)
[2019-04-10] MEDS ORDERED: HEPARIN SOD (PORCINE) 5000 UNITS/ML VIAL As Ordered ONE ×2 (07:50→09:24)
[2019-04-10] MEDS ORDERED: ceFAZolin 2 GM/D5W 50 ML IV BAG (J0690 PER 500MG) As Ordered ONE (08:36)
[2019-04-10] MEDS: SANTYL OINT 30GM TOP SCH (09:00)
[2019-04-10] MEDS ORDERED: MIDAZOLAM INJ 2 MG/2 ML VIAL (J2250) As Ordered ONE (09:24)
[2019-04-10] MEDS ORDERED: ONDANSETRON 4MG/2ML VIAL (J2405) As Ordered ONE (09:24)
[2019-04-10] MEDS ORDERED: ROCURONIUM BROMIDE 50 MG/5 ML VIAL As Ordered ONE (09:24)
[2019-04-10] MEDS ORDERED: PHENYLephrine HCL 500 MCG/5 ML (100MCG/ML) SYRINGE (J2370) As Ordered ONE (09:24)
[2019-04-10] MEDS ORDERED: ePHEDrine SULFATE 25 MG/5 ML(5MG/ML) SYRINGE As Ordered ONE (09:24)
[2019-04-10] MEDS ORDERED: LIDOCAINE 2% INJ 100 MG/5 ML SDV (FOR ANES.) As Ordered ONE (09:24)
[2019-04-10] MEDS ORDERED: fentaNYL 250 MCG/5 ML INJECTION (J3010) As Ordered ONE (09:24)
[2019-04-10] MEDS ORDERED: PROPOFOL 200 MG/20 ML VIAL As Ordered ONE ×2 (09:24→13:26)
[2019-04-10] MEDS ORDERED: SUGAMMADEX SODIUM 500 MG/5 ML VIAL (BRIDION) As Ordered ONE (09:24)
[2019-04-10] MEDS ORDERED: dexameTHASONE 4 MG/ML 1ML VIAL (J1100) As Ordered ONE (09:24)
[2019-04-10] MEDS ORDERED: LACRILUBE (AKWA TEARS) OPHTH OINT 3.5 GM As Ordered ONE (09:26)
[2019-04-10] MEDS ORDERED: NITROGLYCERIN IN D5W 25MG/250ML (100MCG/ML) As Ordered ONE (11:04)
--- NOTE | 2019-04-10 11:14 | IPNPDOC ---
Subjective Date Seen The patient was seen on 04/10/19. Subjective Chief Complaint/HPI Patient is scheduled for bypass surgery today, in no apparent distress General: Denies: ROS Unobtainable, Chills, Night Sweats, Fatigue, Malaise, Normal Appetite, Other Symptoms Constitutional: Denies: Chills, Fever, Malaise, Night Sweats, Weakness, Fatigue, Weight Loss, Lethargy, Other Eyes: Denies: Pain, Vision change, Conjunctivae inflammation, Eyelid inflammation, Redness, Other ENT: Denies: Head Aches, Ear Pain, Dysphagia, Sinus Congestion, Post Nasal Drip, Sore Throat, Epistaxis, Other Symptoms Skin: Denies: Rash, Lesions, Jaundice, Bruising, Itching, Dry, Breakdown, Nail Changes, Other Pulmonary: Denies: Dyspnea, Cough, Pleuritic Chest Pain, Other Symptoms Cardiovascular: Denies: Chest Pain, Palpitations, Orthopnea, Paroxysmal Noc. Dyspnea, Edema, Lt Headedness, Other Symptoms Gastrointestinal: Denies: Nausea, Vomiting, Abdominal Pain, Diarrhea, Constipation, Melena, Hematochezia, Other Symptoms Hematologic: Denies: Bruising, Bleeding Excessively, Petecchia, Purpura, Enlarged Lymph Nodes, Other Hematologic Endocrine: Denies: Polydipsia, Polyphagia, Polyuria, Heat Intolerance, Cold Intolerance, Other Endocrine Sx Musculoskeletal: Denies: Neck Pain, Back Pain, Shoulder Pain, Arm Pain, Hand Pain, Leg Pain, Foot Pain, Joint Pain, Muscle Pain, Spasms, Other Symptoms Neurological: Denies: Weakness, Numbness, Incoordination, Change in speech, Confusion, Seizures, Other Symptoms Objective Physical Examination General Exam: Positive: Alert, Cooperative Eye Exam: Positive: PERRLA, Conjunctiva & lids normal ENT Exam: Positive: Atraumatic, Mucous membr. moist/pink Neck Exam: Positive: Supple, JVD Chest Exam: Positive: Normal air movement Heart Exam: Positive: Rate Normal, Normal S1, Normal S2 Abdomen Exam: Positive: Normal bowel sounds, Soft Extremity Exam: Positive: Normal pulses Skin Exam: Positive: Nl turgor and temperature Neuro Exam: Positive: Strength at 5/5 X4 ext, Sensation Intact Assessment /Plan Problems (1) Cellulitis and abscess of foot Status: Acute Problem Text: Patient is a scheduled for longer lower extremity bypass surgery today Continue IV Zosyn for Pseudomonas on wound culture Postop recommendation as per vascular surgery Tinea present care (2) Hypertension Status: Chronic Problem Text: Under well control To the home meds (3) Type 2 diabetes mellitus Status: Chronic Problem Text: Fingerstick blood sugar with coverage as postop Once patient was taken regular feeding. We'll restart home meds Plan/VTE VTE Prophylaxis Ordered?: Yes VS, I&O, 24H, Fishbone Vital Signs/I&O Vital Signs Date Time Temp Pulse Resp B/P (MAP) Pulse Ox O2 Delivery O2 Flow Rate FiO2 04/10/19 08:05 71 18 96 04/10/19 06:00 97.6 166/62 (96) 04/05/19 16:51 2 04/04/19 16:53 Room Air I&O- Last 24 Hours up to 6 AM 04/10/19 06:00 Intake Total 770 ml Output Total 920 ml Balance -150 ml Laboratory Data 24H LABS Laboratory Tests 2 04/09/19 11:50: Bedside Glucose (Misc Panel) 168H 04/09/19 17:07: Bedside Glucose (Misc Panel) 278H 04/09/19 20:31: Bedside Glucose (Misc Panel) 273H 04/10/19 08:13: Bedside Glucose (Misc Panel) 171H Microbiology Microbiology 04/04/19 Blood Culture - Final, Complete NO GROWTH AFTER 5 DAYS 04/04/19 Gram Stain - Final, Complete 04/04/19 Wound Culture - Final, Complete Pseudomonas Aeruginosa Providencia Rettgeri Corynebacterium Species 04/04/19 Blood Culture - Final, Complete NO GROWTH AFTER 5 DAYS DESTINI OLIVARES MD Apr 10, 2019 11:14
[2019-04-10] MEDS ORDERED: ISOVUE-300 61% 50ML VIAL (Q9967) As Ordered ONE (11:45)
[2019-04-10] MEDS ORDERED: ceFAZolin 1GM INJ (J0690 PER 500MG) As Ordered ONE (12:14)
--- NOTE | 2019-04-10 14:14 | ROOPDOC ---
[facility] Report Of Operation Report of Operation DATE OF PROCEDURE: 04/10/19 PREPROCEDURE DIAGNOSES: Atherosclerosis of the [place] arteries right lower extremity with rest pain, gangrene, ischemic wounds of the foot and ankle POSTPROCEDURE DIAGNOSES: Same PROCEDURE: 1. Redo groin exposure, extensive scarring, 45 minutes 2. Right profunda to below-knee popliteal bypass with greater saphenous in situ vein SURGEON: Richy Salmon MD ANESTHESIA: Local anesthesia and general anesthesia INDICATION FOR PROCEDURE: Mr. Khoury is a very pleasant 68-year-old gentleman with profound right lower extremity ischemia has progressively gotten worse over the last month. In the past, he has had a right axillofemoral femoral bypass in [place], still patent. Dr. Ortega and Dr. Cedeño has both performed arteriograms in the last month, but no interventions were performed for revascularization below the femoral. Upon review of his imaging, and CT scan from a month ago, the patient has a patent profunda and a patent below-knee popliteal artery, and we obtained a vein mapping and found suitable greater saphenous vein for a profunda popliteal bypass. I discussed with the patient after looking at the state of his foot that I did not believe his foot would be viable. He has a large deep eschar over the Achilles, which is extremely difficult to heal, and he also has loss of soft tissue and muscle over the dorsum of the entire foot with some gangrene and some ulcerations. Nevertheless, if the patient was to have an option for a below-knee bypass, a profunda- popliteal bypass would be necessary for healing. Without the bypass, the patient would only have an option for a high above-knee amputation due to limited flow from the profunda. We will see how his foot does with reperfusion, and further recommendations to follow. For today, we will proceed with bypass. Risks benefits and alternatives were explained and the patient is agreeable to proceed. Informed consent was obtained. REPORT OF OPERATION: Patient was brought to the OR in stable condition. General anesthesia and antibiotics were administered without convocation. His right groin and right lower extremity were prepped and draped in a circumferential sterile fashion. His foot was left dressed and placed in an permeable sterile bag. A timeout was performed. Ultrasound was used pre-operation to map out the profunda at the groin and upper thigh. I also mapped out the greater saphenous vein. The patient's previous groin incision at the distal 5 cm was opened along with the more distal incision on the thigh. This was carried down to the subcutaneous tissue carefully with Bovie cautery. At the previous area of dissection, there was dense scar tissue and dissection was tedious. We then undermined laterally towards the profunda. Due to all the scar tissue, and the deep aspect of the profunda distal to the groin, it was challenging to identify and expose the profunda. We were not able to get all the way up to the proximal profunda due to dense adhesions and redundant loops in the axillofemoral bypass that were overlying the distal common femoral artery proximal profunda and proximal SFA. This made things a bit challenging, but we were able to expose the profunda a little more distally on the thigh and multiple branches were skeletonized with Vesseloops placed and a vessel loop was placed proximally as well. We then undermined medially in the soft tissue to identify the greater saphenous vein. Again there were dense scar tissues in the area of the proximal greater saphenous vein, but we dissected as far proximally as we were able. Branches were suture ligated and divided. We then dissected distally as well in order to allow mobilization of the vein from the medial thigh to the lateral profunda tension. The vein was marked to make sure once it was ligated that we did not twist it. Next an incision was made below the knee medially and longitudinally and carried down to the subcutaneous tissue carefully with Bovie cautery. The greater saphenous vein was encountered very superficially and was skeletonized proximally distally within the incision. Branches worse suture ligated and divided. The distal aspect of the vein within our incision was clipped twice. We then continued R dissection medially towards the popliteal vein which was encountered and carefully skeletonized away from the popliteal artery. Vesseloops were placed proximally distally on the artery. It was thick but did not appear overly calcified and I thought it was suitable for bypass. 5000 units of heparin was given and allowed to circulate. We gained her hemostasis with Vesseloops on the profunda, and an arteriotomy was made and enlarged with the pot scissors. We then suture ligated the proximal aspect of the saphenous vein and divided it and there was a branch near the end of the vein which we connected to the into the vein to make a larger patch for anastomosis. We then anastomosed the vein to the artery and an end-to-side fashion with running 6-0 Prolene suture. Before the final sutures are placed, we flushed her inflow and outflow from the artery and the vein and after final sutures were placed, good hemostasis was noted. We then disconnected the vein distally and popliteal incision and a valvulotome was passed from the distal to the proximal with care taken not to pass the blades through our new anastomosis. There was a large proximal valve which required 3 passes of the valvulotome to completely device, and we had good flow through the entire greater saphenous vein. We then exchange the tip of the valvulotome for an injection blunt-tip and performed angiographic imaging to identify branches of the in situ vein. These were marked on the skin. 4 small 2 cm incisions were made at the area of branches, and the branches were clipped. We repeated the imaging until all branches had been clipped. Once the branches were clipped and the valves were lysed, we had excellent flow through the vein. Bulldogs were placed distally on the vein and the vein was flushed with heparinized saline. We also prior to using the valvulotome did inject a small amount of nitroglycerin, 100 g, along with heparinized saline into the vein to help with vasodilation. This really worked well and we had a good dilation of the vein. Next, we secure the vascular loops on the popliteal artery after additional heparin have been given and allowed to circulate. An arteriotomy was made and enlarged with the pot scissors and a branch point of the vein was connected to her venotomy for a larger patch for anastomosis. We then anastomosed the vein to the artery and and decide fashion with running 6-0 Prolene suture. Before the final sutures are placed, we flushed the inflow and outflow of the artery and the pain. We then placed her final sutures and good hemostasis was noted we are stored flow through the vein and into the proximal artery and then through the distal artery. Doppler confirmed triphasic flow in the popliteal artery distal to the anastomosis. We then irrigated all of the incisions with copious normal saline. The small incisions on the thigh from branch clipping were closed in 2 layers of 3-0 Vicryl suture and skin greg. The fascia at the popliteal was reapproximated with a running 2-0 Vicryl suture and the more superficial fascia was closed with a running 3-0 Vicryl suture and skin greg were used at the skin. At the groin, the disc space was tacked down with several interrupted 2-0 Vicryl sutures. The deep fascial layers were closed with running 2-0 Vicryl sutures. The more superficial fascial layer and dermal layer were closed with 3-0 Vicryl sutures. The skin was closed with greg. All incisions were clean and dried and dressings were placed. The patient was allowed to awaken from anesthesia and was taken to recovery in stable condition. ESTIMATED BLOOD LOSS: Approximately 100 mL. COMPLICATIONS: None. SPECIMENS: Urine sent for UA and urine culture. No surgical specimens. DRAINS: None PLAN: It is okay for the patient to get up out of bed with assistance. He does not need to be flat or on bed rest. It's okay to resume his diet and preop erative medications. Analgesia when necessary. Further discussions about the viability of his foot are pending. With revascularization, a below-knee amputation should be possible if necessary. RICHY SALMON MD Apr 10, 2019 14:14
[2019-04-10] MEDS ORDERED: fentaNYL 100 MCG/2 ML INJECTION (J3010) As Ordered ONE (14:17)
[2019-04-10] MEDS ORDERED: PERCOCET 5MG/325MG TAB As Ordered ONE (14:17)
[2019-04-10] MEDS ORDERED: LR 1,000 ML IV SCH (14:30)
[2019-04-10] MEDS ORDERED: ONDANSETRON 4MG/2ML VIAL (J2405) IV PRN (14:30)
[2019-04-10] MEDS ORDERED: PERCOCET 5MG/325MG TAB PO PRN (14:30)
[2019-04-10] MEDS ORDERED: fentaNYL 100 MCG/2 ML INJECTION (J3010) IV PRN (14:30)
[2019-04-10 14:50] LABS: HEMATOCRIT 34.7 % (42.0-52.0); HEMOGLOBIN 11.1 g/dl (13.5-17.5); MEAN CORPUSCULAR HEMOGLOBIN 27.5 pg (27.0-33.0); MEAN CORPUSCULAR VOLUME 86.1 fl (80.0-96.0); PLATELET COUNT, AUTOMATED 313 10^3/uL (150-450); RED BLOOD COUNT 4.03 10^6/uL (4.30-6.10); WHITE BLOOD COUNT 9.8 10^3/uL (4.0-10.0)
[2019-04-10 15:04] LABS: BLOOD UREA NITROGEN 8 MG/DL (7-18); CALCIUM LEVEL 8.7 MG/DL (8.8-10.2); CARBON DIOXIDE LEVEL 24 MEQ/L (21-32); CHLORIDE LEVEL 106 MEQ/L (98-107); CREATININE FOR GFR 1.13 MG/DL (0.70-1.30); GLOMERULAR FILTRATION RATE > 60.0 (>49); GLUCOSE, FASTING 241 MG/DL (70-100); POTASSIUM SERUM 4.4 MEQ/L (3.5-5.1); SODIUM LEVEL 138 MEQ/L (136-145)
[2019-04-10] MEDS: FLUCONAZOLE 100 MG TAB PO SCH (15:31)
[2019-04-10] MEDS: NICOTINE 14 MG/24 HR TRANSDERMAL TD SCH (15:31)
[2019-04-10] MEDS: LEVEMIR (INSULIN DETEMIR) 1 UNITS/0.01ML SC SCH ×2 (15:35→21:01)
[2019-04-10] MEDS: ATORVASTATIN 20 MG TAB PO SCH (21:01)
[2019-04-10] MEDS: NORCO, ANEXSIA 5/325MG TABLET (HYDROcodone/ACETAMINOPHEN) PO PRN (21:02)
[2019-04-11] MEDS: PIPERACILLIN/TAZOBACTAM SOD 3.375 GM in D5W MINI-BAG PLUS 50 ML IV SCH ×5 (01:21→23:59)
[2019-04-11 02:00] VITALS: BP 122/62
[2019-04-11] MEDS: ACETAMINOPHEN TAB 650MG DOSE (2X325MG) PO PRN (02:39)
[2019-04-11] MEDS: MORPHINE 4 MG/ML 1ML VIAL/SYRINGE (J2270) IV PRN (02:40)
[2019-04-11 06:00] VITALS: BP 134/65
[2019-04-11] MEDS: HEPARIN SOD (PORCINE) 5000 UNITS/ML VIAL SQ SCH ×3 (06:41→21:26)
[2019-04-11] MEDS: NORCO, ANEXSIA 5/325MG TABLET (HYDROcodone/ACETAMINOPHEN) PO PRN ×3 (06:41→23:59)
[2019-04-11 06:45] LABS: BASO # 0.1 10^3/uL (0.0-0.2); BASO % 0.4 % (0.0-1.0); EOS % 0.3 % (0.0-3.0); HEMATOCRIT 30.8 % (42.0-52.0); HEMOGLOBIN 9.8 g/dl (13.5-17.5); LYMPH # 1.2 10^3/uL (1.5-5.0); LYMPH % 8.9 % (24.0-44.0); MEAN CORPUSCULAR HEMOGLOBIN 26.9 pg (27.0-33.0); MEAN CORPUSCULAR HGB CONC 31.8 g/dl (32.0-36.5); MEAN CORPUSCULAR VOLUME 84.6 fl (80.0-96.0); MONO # 1.3 10^3/uL (0.0-0.8); MONO % 9.9 % (0.0-5.0); NEUTROPHILS # 10.7 10^3/uL (1.5-8.5); NEUTROPHILS % 79.8 % (36.0-66.0); PLATELET COUNT, AUTOMATED 320 10^3/uL (150-450); RED BLOOD COUNT 3.64 10^6/uL (4.30-6.10); WHITE BLOOD COUNT 13.4 10^3/uL (4.0-10.0)
[2019-04-11 07:15] LABS: ALBUMIN 2.2 GM/DL (3.2-5.2); ALT/SGPT 31 U/L (12-78); BILIRUBIN,TOTAL 0.3 MG/DL (0.2-1.0); BLOOD UREA NITROGEN 11 MG/DL (7-18); CALCIUM LEVEL 8.7 MG/DL (8.8-10.2); CARBON DIOXIDE LEVEL 28 MEQ/L (21-32); CHLORIDE LEVEL 103 MEQ/L (98-107); CREATININE FOR GFR 1.06 MG/DL (0.70-1.30); GLOMERULAR FILTRATION RATE > 60.0 (>49); GLUCOSE, FASTING 230 MG/DL (70-100); POTASSIUM SERUM 4.1 MEQ/L (3.5-5.1); SODIUM LEVEL 138 MEQ/L (136-145); TOTAL PROTEIN 6.5 GM/DL (6.4-8.2)
[2019-04-11] MEDS: HumaLOG INSULIN (NovoLOG) PER UNIT SC SCH ×4 (07:41→21:27)
--- NOTE | 2019-04-11 07:42 | IPNPDOC ---
Date Seen The patient was seen on 04/11/19. Progress Note Pt seen and examined. POD #1 s/p challenging R profunda-popliteal bypass with in situ vein. Doing well today- says his RLE pain is much better. He says he was a bit confused after the OR yesterday, but is feeling himself again today. Pleasant and chatty. On exam, all incisions c/d/i. Silver dressings with no shadowing or drainage noted. Will change after 24hours. Loud biphasic doppler signal and palpable pulse at bypass mid thigh and at PT. Pt unwilling to let me change his dressing on his foot this morning bc he is eating bfast. He says the nurses will do it later. Not sure if the bypass reperfusion will help or hurt the condition of his foot. We will let Dr Christa bacon and I dw pt again today that he still may need BKA. He understands. PLAN: Rec ASA daily if not contraindicated- do not see on SEP. Continue statin daily. D/c egan. Monitor for urine retention and straight cath prn. Analgesia prn. D/c nicotine patch- we do not want to add vasoconstrictors to fresh bypass. D/w pt and he says he will be ok without the patch. OOB ad nato with assist from vascular standpoint. VS, I&O, 24H, Fishbone Vital Signs/I&O Vital Signs Date Time Temp Pulse Resp B/P (MAP) Pulse Ox O2 Delivery O2 Flow Rate FiO2 04/11/19 06:41 16 04/11/19 06:00 97.5 67 134/65 (88) 100 04/10/19 14:50 2.0 I&O- Last 24 Hours up to 6 AM 04/11/19 06:00 Intake Total 2790 ml Output Total 900 ml Balance 1890 ml Laboratory Data 24H LABS Laboratory Tests 2 04/10/19 08:13: Bedside Glucose (Misc Panel) 171H 04/10/19 14:25: Nucleated Red Blood Cells % (auto) 0.0, Anion Gap 8, Glomerular Filtration Rate > 60.0, Blood Urea Nitrogen 8, Creatinine 1.13, Sodium Level 138, Potassium Level 4.4, Chloride Level 106, Carbon Dioxide Level 24, Calcium Level 8.7L 04/10/19 16:48: Bedside Glucose (Misc Panel) 242H 04/10/19 20:20: Bedside Glucose (Misc Panel) 392H 04/11/19 06:19: Immature Granulocyte % (Auto) 0.7, White Blood Count 13.4H, Red Blood Count 3.64L, Hemoglobin 9.8L, Hematocrit 30.8L, Mean Corpuscular Volume 84.6, Mean Corpuscular Hemoglobin 26.9L, Mean Corpuscular Hemoglobin Concent 31.8L, Red Cell Distribution Width 13.6, Platelet Count 320, Neutrophils (%) (Auto) 79.8H, Lymphocytes (%) (Auto) 8.9L, Monocytes (%) (Auto) 9.9H, Eosinophils (%) (Auto) 0.3, Basophils (%) (Auto) 0.4, Neutrophils # (Auto) 10.7H, Lymphocytes # (Auto) 1.2L, Monocytes # (Auto) 1.3H, Eosinophils # (Auto) 0.0, Basophils # (Auto) 0.1, Nucleated Red Blood Cells % (auto) 0.0, Anion Gap 7L, Glomerular Filtration Rate > 60.0, Blood Urea Nitrogen 11, Creatinine 1.06, Sodium Level 138, Potassium Level 4.1, Chloride Level 103, Carbon Dioxide Level 28, Calcium Level 8.7L, Aspartate Amino Transf (AST/SGOT) 20, Alanine Aminotransferase (ALT/SGPT) 31, Alkaline Phosphatase 60, Total Bilirubin 0.3, Total Protein 6.5, Albumin 2.2L, Albumin/Globulin Ratio 0.51L CBC/BMP Laboratory Tests 04/10/19 14:25 Red Blood Count 4.03 L, Mean Corpuscular Volume 86.1, Mean Corpuscular Hemoglobin 27.5, Mean Corpuscular Hemoglobin Concent 32.0, Red Cell Distribution Width 13.5, Calcium Level 8.7 L 04/11/19 06:19 Red Blood Count 3.64 L, Mean Corpuscular Volume 84.6, Mean Corpuscular Hemoglobin 26.9 L, Mean Corpuscular Hemoglobin Concent 31.8 L, Red Cell Distribution Width 13.6, Calcium Level 8.7 L, Neutrophils (%) (Auto) 79.8 H, Lymphocytes (%) (Auto) 8.9 L, Monocytes (%) (Auto) 9.9 H, Eosinophils (%) (Auto) 0.3, Basophils (%) (Auto) 0.4, Neutrophils # (Auto) 10.7 H, Lymphocytes # (Auto) 1.2 L, Monocytes # (Auto) 1.3 H, Eosinophils # (Auto) 0.0, Basophils # (Auto) 0.1, Aspartate Amino Transf (AST/SGOT) 20, Alanine Aminotransferase (ALT/SGPT) 31, Alkaline Phosphatase 60, Total Bilirubin 0.3, Total Protein 6.5, Albumin 2.2 L Microbiology Microbiology 04/10/19 Urine Culture, Received Pending 04/04/19 Blood Culture - Final, Complete NO GROWTH AFTER 5 DAYS 04/04/19 Gram Stain - Final, Complete 04/04/19 Wound Culture - Final, Complete Pseudomonas Aeruginosa Providencia Rettgeri Corynebacterium Species 04/04/19 Blood Culture - Final, Complete NO GROWTH AFTER 5 DAYS RICHY CHILDRESS MD Apr 11, 2019 07:42
[2019-04-11] MEDS ORDERED: MORPHINE 4 MG/ML 1ML VIAL/SYRINGE (J2270) IV ONE (08:15)
[2019-04-11] MEDS ORDERED: LIDOCAINE 4% TOPICAL SOLN 50 ML BTL TOP ONE (09:00)
[2019-04-11] MEDS: LEVEMIR (INSULIN DETEMIR) 1 UNITS/0.01ML SC SCH ×2 (10:06→21:27)
[2019-04-11] MEDS: FLUCONAZOLE 100 MG TAB PO SCH (10:06)
--- NOTE | 2019-04-11 11:52 | IPNPDOC ---
Date Seen The patient was seen on 04/11/19. Progress Note SUBJECTIVE: Patient was seen and examined this morning. He is s/p day 1 Right profunda/popliteal bypass. Patient has stated that his right leg pain has improved since yesterday. Patient denies any new complaints and there were no adverse events reported overnight. Patient will still need debridement of his right foot wound OBJECTIVE PHYSICAL EXAMINATION: VITAL SIGNS: Please see below. GENERAL: Awake, alert, and oriented. Appears in no acute distress. Lying comfortably in bed. HEENT: Atraumatic normocephalic. Eyes are nonicteric. Trachea is midline. Eyes are nonicteric. CARDIOVASCULAR: Normal S1, S2. Regular rate and rhythm. No clicks rubs or murmurs RESPIRATORY: Clear vesicular breath sounds bilaterally with good respiratory effort. No wheezes, rhonchi, or rales. ABDOMINAL: Soft, nondistended. Nontender to palpation in all 4 quadrants. Normoactive bowel sounds EXTREMITIES: Dressing present over right inguinal region. Patients right foot is bandaged. No edema. NEUROLOGICAL: No focal neurological deficits PSYCHOLOGICAL: Mood and affect appear appropriate LABORATORY DATA, IMAGING STUDIES, MICROBIOLOGY: Please see below. DVT prophylaxis ordered?: Heparin q8h ASSESSMENT AND PLAN: Patient is a 68 year old male who presented to the ER with nonhealing right foot wound secondary to cellulitis and ischemic limb. Patient was seen by Podiatry and Vascular surgery. Patient received a profunda-popliteal bypass yesterday. Patient will need debridement of his right foot wound now that he has received revascularization PROBLEMS: 11. 1. Right foot wet gangrene/cellulitis/ischemia -Patient is S/P profunda-popliteal bypass. His procedure went well. He is reporting less pain. -Patient will need debridement of his wound. Dr. Goodwin of Podiatry is currently following. -Patient will have PT/OT 2. Diabetes Mellitus Type 2 -Patient continues to be poorly controlled. Will increase Levemir to 8 units BID -Will continue to monitor 3. Nicotine Dependence -Patient is continued on nicotine patch I saw and evaluated the patient. Discussed with the resident and agree with resident's findings and plan as documented in the resident's note VS, I&O, 24H, Fishbone Vital Signs/I&O Vital Signs Date Time Temp Pulse Resp B/P (MAP) Pulse Ox O2 Delivery O2 Flow Rate FiO2 9/30/19 11:04 16 04/11/19 06:00 97.5 67 134/65 (88) 100 04/10/19 14:50 2.0 I&O- Last 24 Hours up to 6 AM 04/11/19 06:00 Intake Total 2790 ml Output Total 1500 ml Balance 1290 ml Laboratory Data 24H LABS Laboratory Tests 2 04/10/19 14:25: Nucleated Red Blood Cells % (auto) 0.0, Anion Gap 8, Glomerular Filtration Rate > 60.0, Blood Urea Nitrogen 8, Creatinine 1.13, Sodium Level 138, Potassium Level 4.4, Chloride Level 106, Carbon Dioxide Level 24, Calcium Level 8.7L 04/10/19 16:48: Bedside Glucose (Misc Panel) 242H 04/10/19 20:20: Bedside Glucose (Misc Panel) 392H 04/11/19 06:19: Nucleated Red Blood Cells % (auto) 0.0, Anion Gap 7L, Glomerular Filtration Rate > 60.0, Blood Urea Nitrogen 11, Creatinine 1.06, Sodium Level 138, Potassium L evel 4.1, Chloride Level 103, Carbon Dioxide Level 28, Calcium Level 8.7L, Immature Granulocyte % (Auto) 0.7, White Blood Count 13.4H, Red Blood Count 3.64L, Hemoglobin 9.8L, Hematocrit 30.8L, Mean Corpuscular Volume 84.6, Mean Corpuscular Hemoglobin 26.9L, Mean Corpuscular Hemoglobin Concent 31.8L, Red Cell Distribution Width 13.6, Platelet Count 320, Neutrophils (%) (Auto) 79.8H, Lymphocytes (%) (Auto) 8.9L, Monocytes (%) (Auto) 9.9H, Eosinophils (%) (Auto) 0.3, Basophils (%) (Auto) 0.4, Neutrophils # (Auto) 10.7H, Lymphocytes # (Auto) 1.2L, Monocytes # (Auto) 1.3H, Eosinophils # (Auto) 0.0, Basophils # (Auto) 0.1, Aspartate Amino Transf (AST/SGOT) 20, Alanine Aminotransferase (ALT/SGPT) 31, Alkaline Phosphatase 60, Total Bilirubin 0.3, Total Protein 6.5, Albumin 2.2L, Albumin/Globulin Ratio 0.51L CBC/BMP Laboratory Tests 04/10/19 14:25 Red Blood Count 4.03 L, Mean Corpuscular Volume 86.1, Mean Corpuscular Hemoglobin 27.5, Mean Corpuscular Hemoglobin Concent 32.0, Red Cell Distribution Width 13.5, Calcium Level 8.7 L 04/11/19 06:19 Red Blood Count 3.64 L, Mean Corpuscular Volume 84.6, Mean Corpuscular Hemoglobin 26.9 L, Mean Corpuscular Hemoglobin Concent 31.8 L, Red Cell Distribution Width 13.6, Calcium Level 8.7 L, Neutrophils (%) (Auto) 79.8 H, Lymphocytes (%) (Auto) 8.9 L, Monocytes (%) (Auto) 9.9 H, Eosinophils (%) (Auto) 0.3, Basophils (%) (Auto) 0.4, Neutrophils # (Auto) 10.7 H, Lymphocytes # (Auto) 1.2 L, Monocytes # (Auto) 1.3 H, Eosinophils # (Auto) 0.0, Basophils # (Auto) 0.1, Aspartate Amino Transf (AST/SGOT) 20, Alanine Aminotransferase (ALT/SGPT) 31, Alkaline Phosphatase 60, Total Bilirubin 0.3, Total Protein 6.5, Albumin 2.2 L Microbiology Microbiology 04/10/19 Urine Culture, Received Pending 04/04/19 Blood Culture - Final, Complete NO GROWTH AFTER 5 DAYS 04/04/19 Gram Stain - Final, Complete 04/04/19 Wound Culture - Final, Complete Pseudomonas Aeruginosa Providencia Rettgeri Corynebacterium Species 04/04/19 Blood Culture - Final, Complete NO GROWTH AFTER 5 DAYS LAURIE CASTELLANOS DO Apr 11, 2019 11:52 DESTINI OLIVARES MD Apr 12, 2019 07:08
[2019-04-11] MEDS: SANTYL OINT 30GM TOP SCH (13:12)
--- NOTE | 2019-04-11 14:15 | IPN ---
DATE OF SERVICE: 04/11/2019 The patient seen and examined at the bedside. He has underwent bypass by Dr. Salmon. He states he is feeling a little bit better. Denies other overnight complaints. LOWER EXTREMITY EXAMINATION: The wound bed is somewhat improved. There still is some necrotic and eschar tissue along the wound periphery, as well as the posterior ankle. ASSESSMENT: A 68-year-old male with critical limb ischemia and peripheral vascular disease (PVD) status post bypass. PLAN: Bedside debridement was performed using topical anesthetic and #15 blade. Most of the gangrenous tissue was able to be removed, and there was some granulation tissue underneath it. At this time, would continue current dressing changes. The patient has some chance of keeping his leg. Given social home status, I do not feel he would do very well with a below-knee amputation unless absolutely required. Will reevaluate in 2 days. If improvement in wound, will continue limb salvage attempts and most likely would benefit from continued care with Dr. Og and possible hyperbaric oxygen treatments. If no improvement or any worsening, then will plan for below-knee amputation. Will follow.
[2019-04-11 15:37] VITALS: BP 134/70
[2019-04-11] MEDS: ATORVASTATIN 20 MG TAB PO SCH (21:26)
[2019-04-11 21:41] VITALS: BP 146/63
[2019-04-12 05:51] VITALS: BP 139/65
[2019-04-12] MEDS: HEPARIN SOD (PORCINE) 5000 UNITS/ML VIAL SQ SCH ×3 (06:06→21:46)
[2019-04-12] MEDS: PIPERACILLIN/TAZOBACTAM SOD 3.375 GM in D5W MINI-BAG PLUS 50 ML IV SCH ×3 (06:06→18:14)
[2019-04-12] MEDS: NORCO, ANEXSIA 5/325MG TABLET (HYDROcodone/ACETAMINOPHEN) PO PRN ×3 (06:07→21:46)
--- NOTE | 2019-04-12 07:50 | IPNPDOC ---
Date Seen The patient was seen on 04/12/19. Progress Note Patient seen and examined. Doing well today. He says foot feels much better. Dr. Goodwin saw the patient yesterday and studied like to wait until tomorrow to see if any improvement comes about with improved blood flow now postop day 2 status post right lower extremity profunda to below-knee popliteal bypass. He has a triphasic signal over the bypass, biphasic popliteal PT signals are auscultated. All incisions, for on the upper thigh, one at the groin and one below the knee are clean dry and intact. No significant drainage noted on postoperative dressings which were changed today. All incisions were clean thoroughly and redressed. The patient tolerated this well. Plan for now is to continue local wound care on the foot per the wound care nurses, and local wound care to the bypass incisions. Analgesia when necessary. We will see how podiatry feels about the foot tomorrow and decide for ongoing monitoring versus BKA in the next day or 2. Patient is agreeable to this plan. VS, I&O, 24H, Percy Vital Signs/I&O Vital Signs Date Time Temp Pulse Resp B/P (MAP) Pulse Ox O2 Delivery O2 Flow Rate FiO2 04/12/19 06:37 18 04/12/19 05:51 98.1 65 139/65 (89) 99 04/10/19 14:50 2.0 I&O- Last 24 Hours up to 6 AM 04/12/19 06:00 Intake Total 100 ml Output Total 2425 ml Balance -2325 ml Laboratory Data 24H LABS Laboratory Tests 2 04/11/19 12:15: Bedside Glucose (Misc Panel) 213H 04/11/19 17:20: Bedside Glucose (Misc Panel) 214H 04/11/19 20:10: Bedside Glucose (Misc Panel) 304H 04/12/19 06:17: Bedside Glucose (Misc Panel) 123H Microbiology Microbiology 04/10/19 Urine Culture - Final, Complete 04/04/19 Blood Culture - Final, Complete NO GROWTH AFTER 5 DAYS 04/04/19 Gram Stain - Final, Complete 04/04/19 Wound Culture - Final, Complete Pseudomonas Aeruginosa Providencia Rettgeri Corynebacterium Species 04/04/19 Blood Culture - Final, Complete NO GROWTH AFTER 5 DAYS RICHY CHILDRESS MD Apr 12, 2019 07:50
[2019-04-12 07:58] LABS: HEMOGLOBIN 9.6 g/dl (13.5-17.5); MEAN CORPUSCULAR HEMOGLOBIN 27.5 pg (27.0-33.0); PLATELET COUNT, AUTOMATED 332 10^3/uL (150-450); RED BLOOD COUNT 3.49 10^6/uL (4.30-6.10); WHITE BLOOD COUNT 10.5 10^3/uL (4.0-10.0)
[2019-04-12] MEDS: LEVEMIR (INSULIN DETEMIR) 1 UNITS/0.01ML SC SCH ×2 (08:11→21:47)
[2019-04-12] MEDS: HumaLOG INSULIN (NovoLOG) PER UNIT SC SCH ×4 (08:11→21:00)
[2019-04-12] MEDS: FLUCONAZOLE 100 MG TAB PO SCH (08:12)
[2019-04-12] MEDS: SANTYL OINT 30GM TOP SCH (08:12)
[2019-04-12 08:20] LABS: BLOOD UREA NITROGEN 10 MG/DL (7-18); CALCIUM LEVEL 8.5 MG/DL (8.8-10.2); CARBON DIOXIDE LEVEL 30 MEQ/L (21-32); CHLORIDE LEVEL 106 MEQ/L (98-107); GLOMERULAR FILTRATION RATE > 60.0 (>49); GLUCOSE, FASTING 183 MG/DL (70-100); POTASSIUM SERUM 4.1 MEQ/L (3.5-5.1); SODIUM LEVEL 143 MEQ/L (136-145)
[2019-04-12] MEDS: ASPIRIN 81 MG ENTERIC TAB PO SCH (12:58)
[2019-04-12 14:36] VITALS: BP 152/67
--- NOTE | 2019-04-12 16:36 | IPNPDOC ---
Date Seen The patient was seen on 04/12/19. Progress Note SUBJECTIVE: Patient was seen and examined this morning. He currently has no new complaints. He is s/p day 2 from his profunda-popliteal bypass. He currently denies any worsening pain in his leg. His right foot was debrided yesterday. Patient currently denies any shortness of breath or chest pain OBJECTIVE PHYSICAL EXAMINATION: VITAL SIGNS: Please see below. GENERAL: Awake, alert, and oriented. Appears in no acute distress. Lying comfortably in bed. HEENT: Atruamtic Normocephalic. Eyes are nonicteric. Trachea is midline CARDIOVASCULAR: Normal S1, S2, regular and rhythm clicks, rubs or murmurs. RESPIRATORY: Clear vesicular breath sounds bilaterally with good respiratory effort. No wheezes, rhonchi or rales ABDOMINAL:. Soft, nondistended, nontender to palpation in all 4 quadrants. No rmoactive bowel sounds EXTREMITIES: Patient has dressing present over his right inguinal region. He has his right foot bandaged. NEUROLOGICAL: No focal neurological deficits PSYCHOLOGICAL:. Mood and affect appear appropriate LABORATORY DATA, IMAGING STUDIES, MICROBIOLOGY: Please see below. DVT prophylaxis ordered?: Heparin every 8 hours ASSESSMENT AND PLAN: Patient is a 68-year-old male presented to the ER with nonhealing right wound secondary to cellulitis and ischemic limb. Patient was se en by podiatry, vascular surgery. He has received a profunda-popliteal a bypass with revascularization of his them. Patient received debridement by podiatry yesterday. He is continued on IV Zosyn. Concern whether patient's infection is cellulitic or osteomyelitis. Have consulted infectious disease for recommendations and changing to by mouth and duration of antibiotic treatment. PROBLEMS: 1. Right foot wet gangrene\cellulitis\ischemia -Patient is currently status post day 2 profunda popliteal bypass. He is currently reporting less pain. His right foot was abbreviated yesterday by podiatry. Patient is currently receiving IV Zosyn. He is currently on day 8 of antibiotic treatment. Plans to switch patient over to oral. However, concerns are whether patient's right foot wound is cellulitis versus osteomyelitis. An MRI was originally ordered on admission. However, the patient was unable to get this because he could not hold his foot up. Infectious disease has been consulted for recommendations on is on treatment for possible cellulitis versus osteomyelitis 2.. Diabetes mellitus type 2: -Patient is Levemir dose increased to 10 units twice a day we'll continue to monitor. 3. Nicotine dependence: -Patient continued on nicotine patch. I saw and evaluated the patient. I agree with the findings and plan of care as documented in the above note VS, I&O, 24H, Fishbone Vital Signs/I&O Vital Signs Date Time Temp Pulse Resp B/P (MAP) Pulse Ox O2 Delivery O2 Flow Rate FiO2 04/12/19 14:46 16 04/12/19 05:51 98.1 65 139/65 (89) 99 04/10/19 14:50 2.0 I&O- Last 24 Hours up to 6 AM 04/12/19 06:00 Intake Total 100 ml Output Total 2425 ml Balance -2325 ml Laboratory Data 24H LABS Laboratory Tests 2 04/11/19 17:20: Bedside Glucose (Misc Panel) 214H 04/11/19 20:10: Bedside Glucose (Misc Panel) 304H 04/12/19 06:17: Bedside Glucose (Misc Panel) 123H 04/12/19 07:42: Nucleated Red Blood Cells % (auto) 0.0, Anion Gap 7L, Glomerular Filtration Rate > 60.0, Blood Urea Nitrogen 10, Creatinine 1.00, Sodium Level 143, Potassium Level 4.1, Chloride Level 106, Carbon Dioxide Level 30, Calcium Level 8.5L 04/12/19 12:32: Bedside Glucose (Misc Panel) 218H CBC/BMP Laboratory Tests 04/12/19 07:42 Red Blood Count 3.49 L, Mean Corpuscular Volume 86.0, Mean Corpuscular Hemoglobin 27.5, Mean Corpuscular Hemoglobin Concent 32.0, Red Cell Distribution Width 14.0, Calcium Level 8.5 L Microbiology Microbiology 04/10/19 Urine Culture - Final, Complete 04/04/19 Blood Culture - Final, Complete NO GROWTH AFTER 5 DAYS 04/04/19 Gram Stain - Final, Complete 04/04/19 Wound Culture - Final, Complete Pseudomonas Aeruginosa Providencia Rettgeri Corynebacterium Species 04/04/19 Blood Culture - Final, Complete NO GROWTH AFTER 5 DAYS LAURIE CASTELLANOS DO Apr 12, 2019 16:36 USHA THOMSON MD Apr 14, 2019 10:47
[2019-04-12 17:05] VITALS: BP 119/57
[2019-04-12] MEDS: ATORVASTATIN 20 MG TAB PO SCH (21:46)
[2019-04-12 22:00] VITALS: BP 140/80
[2019-04-13] MEDS: PIPERACILLIN/TAZOBACTAM SOD 3.375 GM in D5W MINI-BAG PLUS 50 ML IV SCH ×4 (01:41→18:19)
[2019-04-13 06:00] VITALS: BP 150/70
[2019-04-13 06:02] LABS: HEMATOCRIT 30.3 % (42.0-52.0); HEMOGLOBIN 9.7 g/dl (13.5-17.5); MEAN CORPUSCULAR HEMOGLOBIN 27.6 pg (27.0-33.0); MEAN CORPUSCULAR VOLUME 86.1 fl (80.0-96.0); PLATELET COUNT, AUTOMATED 351 10^3/uL (150-450); RED BLOOD COUNT 3.52 10^6/uL (4.30-6.10); WHITE BLOOD COUNT 11.7 10^3/uL (4.0-10.0)
[2019-04-13] MEDS: NORCO, ANEXSIA 5/325MG TABLET (HYDROcodone/ACETAMINOPHEN) PO PRN ×3 (06:13→19:25)
[2019-04-13] MEDS: HEPARIN SOD (PORCINE) 5000 UNITS/ML VIAL SQ SCH ×3 (06:13→21:40)
[2019-04-13 06:22] LABS: BLOOD UREA NITROGEN 11 MG/DL (7-18); C REACTIVE PROTEIN QUANTITATIV 1.66 MG/DL (0.00-0.30); CALCIUM LEVEL 8.7 MG/DL (8.8-10.2); CARBON DIOXIDE LEVEL 27 MEQ/L (21-32); CHLORIDE LEVEL 107 MEQ/L (98-107); CREATININE FOR GFR 0.85 MG/DL (0.70-1.30); GLOMERULAR FILTRATION RATE > 60.0 (>49); GLUCOSE, FASTING 166 MG/DL (70-100); POTASSIUM SERUM 3.8 MEQ/L (3.5-5.1); SODIUM LEVEL 140 MEQ/L (136-145)
[2019-04-13 06:37] LABS: ERYTHROCYTE SEDIMENTATION RATE > 140 mm/hr (0-20)
--- NOTE | 2019-04-13 07:31 | IPNPDOC ---
Date Seen The patient was seen on 04/13/19. Progress Note Patient seen and examined. Doing well today. He says his pain continues to improve daily but he is tired today. Dr. Goodwin plans to see the patient yesterday and decide if any improvement comes about with improved blood flow. Patient is now postop day 3 status post right lower extremity profunda to below- knee popliteal bypass. He has a triphasic signal over the bypass, biphasic popliteal PT signals are auscultated. All incisions, four small incisions on the upper thigh, one at the groin and one below the knee, are clean dry and intact. No significant drainage noted on postoperative dressings which were changed today. All incisions were clean thoroughly and redressed. The patient tolerated this well. Plan for now is to continue local wound care on the foot per the wound care nurses, and local wound care to the bypass incisions. Analgesia when necessary. Encourage high-protein diet to help with wound healing. We will see how podiatry feels about the foot and decide for ongoing monitoring versus BKA in the next day or 2. Patient is agreeable to this plan. VS, I&O, [facility], [facility] Vital [facility]/I&O Vital Signs Date Time Temp Pulse Resp B/P (MAP) Pulse Ox O2 Delivery O2 Flow Rate FiO2 04/13/19 06:43 18 04/13/19 06:00 97.9 58 150/70 (96) 98 04/10/19 14:50 2.0 I&O- Last 24 Hours up to 6 AM 04/13/19 06:00 Intake Total 460 ml Output Total 450 ml Balance 10 ml Laboratory Data 24H LABS Laboratory Tests 2 04/12/19 07:42: Nucleated Red Blood Cells % (auto) 0.0, Anion Gap 7L, Glomerular Filtration Rate > 60.0, Blood Urea Nitrogen 10, Creatinine 1.00, Sodium Level 143, Potassium Level 4.1, Chloride Level 106, Carbon Dioxide Level 30, Calcium Level 8.5L 04/12/19 12:32: Bedside Glucose (Misc Panel) 218H 04/12/19 16:58: Bedside Glucose (Misc Panel) 197H 04/12/19 21:17: Bedside Glucose (Misc Panel) 235H 04/13/19 05:43: Nucleated Red Blood Cells % (auto) 0.0, Erythrocyte Sedimentation Rate > 140H, Anion Gap 6L, Glomerular Filtration Rate > 60.0, Blood Urea Nitrogen 11, Creatinine 0.85, Sodium Level 140, Potassium Level 3.8, Chloride Level 107, Carbon Dioxide Level 27, Calcium Level 8.7L, C-Reactive Protein, Quantitative 1.66H CBC/BMP Laboratory Tests 04/12/19 07:42 Red Blood Count 3.49 L, Mean Corpuscular Volume 86.0, Mean Corpuscular Hemoglobin 27.5, Mean Corpuscular Hemoglobin Concent 32.0, Red Cell Distribution Width 14.0, Calcium Level 8.5 L 04/13/19 05:43 Red Blood Count 3.52 L, Mean Corpuscular Volume 86.1, Mean Corpuscular Hemoglobin 27.6, Mean Corpuscular Hemoglobin Concent 32.0, Red Cell Distribution Width 14.2, Calcium Level 8.7 L Microbiology Microbiology 04/10/19 Urine Culture - Final, Complete 04/04/19 Blood Culture - Final, Complete NO GROWTH AFTER 5 DAYS 04/04/19 Gram Stain - Final, Complete 04/04/19 Wound Culture - Final, Complete Pseudomonas Aeruginosa Providencia Rettgeri Corynebacterium Species 04/04/19 Blood Culture - Final, Complete NO GROWTH AFTER 5 DAYS RICHY CHILDRESS MD Apr 13, 2019 07:31
[2019-04-13] MEDS: HumaLOG INSULIN (NovoLOG) PER UNIT SC SCH ×4 (08:05→21:41)
[2019-04-13] MEDS: FLUCONAZOLE 100 MG TAB PO SCH (08:06)
[2019-04-13] MEDS: LEVEMIR (INSULIN DETEMIR) 1 UNITS/0.01ML SC SCH ×2 (08:06→21:40)
[2019-04-13] MEDS: SANTYL OINT 30GM TOP SCH (08:06)
[2019-04-13] MEDS: ASPIRIN 81 MG ENTERIC TAB PO SCH (08:06)
--- NOTE | 2019-04-13 12:17 | IPNPDOC ---
Date Seen The patient was seen on 04/13/19. Progress Note SUBJECTIVE: Patient was seen and examined this morning. He currently has no new complaints. He is currently status post day 3 from his profunda popliteal bypass. He currently denies any worsening of pain in his leg. Currently denies any short of breath or chest pain. OBJECTIVE PHYSICAL EXAMINATION: VITAL SIGNS: Please see below. GENERAL: Awake, alert, and oriented. Appears in no acute distress. Lying comfortably in bed. HEENT: Atruamtic Normocephalic. Eyes are nonicteric. Trachea is midline CARDIOVASCULAR: Normal S1, S2, regular and rhythm clicks, rubs or murmurs. RESPIRATORY: Clear vesicular breath sounds bilaterally with good respiratory effort. No wheezes, rhonchi or rales ABDOMINAL:. Soft, nondistended, nontender to palpation in all 4 quadrants. Normoactive bowel sounds EXTREMITIES: Patient has dressing present over his right inguinal region. He has his right foot bandaged. NEUROLOGICAL: No focal neurological deficits PSYCHOLOGICAL:. Mood and affect appear appropriate LABORATORY DATA, IMAGING STUDIES, MICROBIOLOGY: Please see below. DVT prophylaxis ordered?: Heparin every 8 hours ASSESSMENT AND PLAN: Patient is a 8-year-old male presented to the ER with nonhealing right wound secondary to cellulitis and ischemic limb. Patient was seen by podiatry and vascular surgery. He received a polyp. Fundi popliteal bypass with revascularization. Patient has received debridement and is currently continued on IV Zosyn. Continued concern as to whether the patient's infection is cellulitic or of osteo-myelitis. Infectious disease has been consulted and will examine the patient for consideration of oral medication and duration of antibiotic treatment. Patient is to be seen by podiatry today for reevaluation. PROBLEMS: 1. Right foot wet gangrene\cellulitis past. Last ischemia: -Patient currently status post a 3 profunda popliteal bypass. He is currently reporting less pain in his leg. His right foot has been debrided by podiatry. He is continued IV Zosyn. He is currently on day 9 of a back treatment. Plan to switch the patient to oral medication. However, continued concern for whether patient should be treated for cellulitis versus osteomyelitis. Infectious william marinelli has been consulted for recommendations. They will evaluate the patient. -Podiatry is planning to see the patient today for evaluation of his right foot. 2.. Diabetes mellitus type 2 -Patient's Levemir dose is currently 10 units twice a day we'll continue to monitor 3. Nicotine dependence -Will continue with nicotine patch. I saw and evaluated the patient. I agree with the findings and plan of care as documented in the above note VS, I&O, 24H, Fishbone Vital Signs/I&O Vital Signs Date Time Temp Pulse Resp B/P (MAP) Pulse Ox O2 Delivery O2 Flow Rate FiO2 04/13/19 06:43 18 04/13/19 06:00 97.9 58 150/70 (96) 98 04/10/19 14:50 2.0 I&O- Last 24 Hours up to 6 AM 04/13/19 06:00 Intake Total 460 ml Output Total 450 ml Balance 10 ml Laboratory Data 24H LABS Laboratory Tests 2 04/12/19 12:32: Bedside Glucose (Misc Panel) 218H 04/12/19 16:58: Bedside Glucose (Misc Panel) 197H 04/12/19 21:17: Bedside Glucose (Misc Panel) 235H 04/13/19 05:43: Nucleated Red Blood Cells % (auto) 0.0, Erythrocyte Sedimentation Rate > 140H, Anion Gap 6L, Glomerular Filtration Rate > 60.0, Blood Urea Nitrogen 11, Creatinine 0.85, Sodium Level 140, Potassium Level 3.8, Chloride Level 107, Carbon Dioxide Level 27, Calcium Level 8.7L, C-Reactive Protein, Quantitative 1.66H CBC/BMP Laboratory Tests 04/13/19 05:43 Red Blood Count 3.52 L, Mean Corpuscular Volume 86.1, Mean Corpuscular Hemoglobin 27.6, Mean Corpuscular Hemoglobin Concent 32.0, Red Cell Distribution Width 14.2, Calcium Level 8.7 L Microbiology Microbiology 04/10/19 Urine Culture - Final, Complete 04/04/19 Blood Culture - Final, Complete NO GROWTH AFTER 5 DAYS 04/04/19 Gram Stain - Final, Complete 04/04/19 Wound Culture - Final, Complete Pseudomonas Aeruginosa Providencia Rettgeri Corynebacterium Species 04/04/19 Blood Culture - Final, Complete NO GROWTH AFTER 5 DAYS LAURIE CASTELLANOS DO Apr 13, 2019 12:17 USHA THOMSON MD Apr 14, 2019 10:55
[2019-04-13] MEDS: MORPHINE 4 MG/ML 1ML VIAL/SYRINGE (J2270) IV PRN (14:22)
[2019-04-13] MEDS ORDERED: LIDOCAINE 4% TOPICAL SOLN 50 ML BTL TOP ONE (15:00)
--- NOTE | 2019-04-13 16:14 | IPN ---
DATE: 04/13/2019 Patient was seen and examined at bedside. Denies new complaints. States he feels tired today, but otherwise pain is unchanged. Labs are reviewed. White blood cell count 11.7. ESR is greater than 140. CRP is 1.66. LOWER EXTREMITY EXAMINATION: There is less ruborous and cyanosis to the skin margins along the wounds. There is some continued further granulation tissue to the wound bed. No further progression of necrosis or gangrenous changes. ASSESSMENT: A 68-year-old, diabetic male with peripheral vascular disease status post bypass. PLAN: At this time, foot appears potentially viable. There has been no further progressive gangrenous changes. Wound was debrided at bedside after a lidocaine soak. Removing some of the nonviable necrotic tissue there was bleeding granular tissue underneath this. Presently, we will continue with local wound care as ordered. Antibiotic treatments as determined by Dr. Jolly. Ultimately, he will probably continue to benefit from advanced wound care and possible hyperbaric oxygen treatment at the wound care center. It was discussed that he may still ultimately result with a [id number]. Despite best efforts it was again discussed that he needs to quit tobacco use as this increases his risk factors for worsening vascular disease. Will continue to follow.
[2019-04-13 20:47] VITALS: BP 173/62
[2019-04-13] MEDS: ATORVASTATIN 20 MG TAB PO SCH (21:40)
[2019-04-14] MEDS: PIPERACILLIN/TAZOBACTAM SOD 3.375 GM in D5W MINI-BAG PLUS 50 ML IV SCH ×4 (01:42→18:29)
[2019-04-14 06:08] VITALS: BP 179/74
[2019-04-14] MEDS: HEPARIN SOD (PORCINE) 5000 UNITS/ML VIAL SQ SCH ×3 (06:21→20:43)
[2019-04-14] MEDS: NORCO, ANEXSIA 5/325MG TABLET (HYDROcodone/ACETAMINOPHEN) PO PRN ×3 (06:22→18:37)
[2019-04-14 06:41] LABS: HEMOGLOBIN 10.4 g/dl (13.5-17.5); MEAN CORPUSCULAR HEMOGLOBIN 28.3 pg (27.0-33.0); MEAN CORPUSCULAR HGB CONC 32.5 g/dl (32.0-36.5); PLATELET COUNT, AUTOMATED 377 10^3/uL (150-450); RED BLOOD COUNT 3.68 10^6/uL (4.30-6.10); WHITE BLOOD COUNT 10.4 10^3/uL (4.0-10.0)
[2019-04-14 07:11] LABS: BLOOD UREA NITROGEN 10 MG/DL (7-18); CARBON DIOXIDE LEVEL 27 MEQ/L (21-32); CHLORIDE LEVEL 107 MEQ/L (98-107); CREATININE FOR GFR 0.84 MG/DL (0.70-1.30); GLOMERULAR FILTRATION RATE > 60.0 (>49); GLUCOSE, FASTING 129 MG/DL (70-100); POTASSIUM SERUM 3.7 MEQ/L (3.5-5.1); SODIUM LEVEL 139 MEQ/L (136-145)
[2019-04-14] MEDS: HumaLOG INSULIN (NovoLOG) PER UNIT SC SCH ×4 (07:44→21:00)
[2019-04-14] MEDS: LEVEMIR (INSULIN DETEMIR) 1 UNITS/0.01ML SC SCH ×2 (07:44→20:42)
[2019-04-14] MEDS: FLUCONAZOLE 100 MG TAB PO SCH (07:44)
[2019-04-14] MEDS: ASPIRIN 81 MG ENTERIC TAB PO SCH (07:44)
[2019-04-14] MEDS: SANTYL OINT 30GM TOP SCH ×3 (08:26→19:54)
--- NOTE | 2019-04-14 09:31 | IPNPDOC ---
Date Seen The patient was seen on 04/14/19. Progress Note Progress Note Patient seen and examined. Doing well today. He says his pain continues to improve daily but he is tired again today. Dr. Goodwin plans to see if any improvement comes about with improved blood flow. He is hopeful that with improved perfusion, some healing and foot salvage may be possible. Patient is now postop day 4 status post right lower extremity profunda to below-knee popliteal bypass. He has a bounding pulses and strong signal over the bypass, biphasic popliteal signal are auscultated. All incisions, four small incisions on the upper thigh, one at the groin and one below the knee, are clean dry and intact. No significant drainage noted on postoperative dressings which were changed today. All incisions were clean thoroughly and redressed. The patient tolerated this well. Plan for now is to continue local wound care on the foot per the wound care nurses, and local wound care to the bypass incisions. Analgesia when necessary. Encourage high-protein diet to help with wound healing. Patient is agreeable to this plan. VS, I&O, 24H, Percy Vital Signs/I&O Vital Signs Date Time Temp Pulse Resp B/P (MAP) Pulse Ox O2 Delivery O2 Flow Rate FiO2 04/14/19 06:52 18 04/14/19 06:12 97.6 04/14/19 06:12 62 96 04/14/19 06:08 179/74 (109) 04/10/19 14:50 2.0 I&O- Last 24 Hours up to 6 AM 04/14/19 06:00 Intake Total 2360 ml Output Total 2200 ml Balance 160 ml Laboratory Data 24H LABS Laboratory Tests 2 04/13/19 12:54: Bedside Glucose (Misc Panel) 201H 04/13/19 16:14: Bedside Glucose (Misc Panel) 229H 04/13/19 20:52: Bedside Glucose (Misc Panel) 276H 04/14/19 06:23: Nucleated Red Blood Cells % (auto) 0.0, Anion Gap 5L, Glomerular Filtration Rate > 60.0, Blood Urea Nitrogen 10, Creatinine 0.84, Sodium Level 139, Potassium Level 3.7, Chloride Level 107, Carbon Dioxide Level 27, Calcium Level 9.0 CBC/BMP Laboratory Tests 04/14/19 06:23 Red Blood Count 3.68 L, Mean Corpuscular Volume 87.0, Mean Corpuscular Hemoglobin 28.3, Mean Corpuscular Hemoglobin Concent 32.5, Red Cell Distribution Width 14.1, Calcium Level 9.0 Microbiology Microbiology 04/10/19 Urine Culture - Final, Complete 04/04/19 Blood Culture - Final, Complete NO GROWTH AFTER 5 DAYS 04/04/19 Gram Stain - Final, Complete 04/04/19 Wound Culture - Final, Complete Pseudomonas Aeruginosa Providencia Rettgeri Corynebacterium Species 04/04/19 Blood Culture - Final, Complete NO GROWTH AFTER 5 DAYS RICHY CHILDRESS MD Apr 14, 2019 09:31
--- NOTE | 2019-04-14 11:28 | IPNPDOC ---
Date Seen The patient was seen on 04/14/19. Progress Note SUBJECTIVE: Patient was seen and examined this morning. He currently is under complaints. He is status post day 4 of his profunda popliteal bypass currently denying any worsening of his pain. Currently denies any chest pain, shortness of breath. Patient had his wound examined by podiatry yesterday. He is currently day 10 of antibiotic treatment. OBJECTIVE PHYSICAL EXAMINATION: VITAL SIGNS: Please see below. GENERAL: Awake, alert and oriented, lying in bed comfortably, appears no acute distress HEENT:. Atraumatic normocephalic. Eyes nonicteric. Trachea is midline CARDIOVASCULAR: Normal S1, S2, regular rate and rhythm. No clicks, rubs or murmurs. RESPIRATORY:. There are vesicular breath sounds bilaterally. Good respiratory effort. No wheezes, rhonchi or rales. Slightly prolonged expiratory phase. ABDOMINAL:. Soft, nondistended, nontender to palpation in all 4 quadrants. No rebound tenderness or guarding EXTREMITIES: Patient has continued dressing present over his right foot NEUROLOGICAL:. No focal neurological deficits PSYCHOLOGICAL:. Mood and affect appear appropriate LABORATORY DATA, IMAGING STUDIES, MICROBIOLOGY: Please see below. DVT prophylaxis ordered?: Heparin every 8 hours ASSESSMENT AND PLAN: Patient is a 68-year-old male who presents to the ER with a nonhealing right foot wound secondary to cellulitis and ischemic limb. Patient was seen by podiatry and vascular see surgery. He received a profunda, popliteal bypass with revascularization. Patient has received debridement and is currently continued on IV Zosyn. There is continued concern for cellulitis vs os teomyelitis. Infectious disease has been consulted for recommendations on oral antibiotic medication and treatment. Patient was seen and evaluated by podiatry, who had noted improvement in the patient's wound. Patient will need further wound care management after discharge. PROBLEMS: 1. Right foot wet gangrene\cellulitis\ischemia -Patient is currently status post day 4 of his profunda popliteal bypass surgery. He continues to report less pain in his leg. His right foot has been derided by podiatry previously. His right foot was examined yesterday and appears to be doing better than previously. He is currently on day 10 of Zosyn IV. A home medication. Infectious disease has been consulted. Consultation is appreciated. We'll change antibiotic therapy according to infectious disease recommendations. 2. Diabetes mellitus type 2 -Patient's currently on Levemir 10 units twice a day. Will continue to monitor. 3. Nicotine dependence: -Will continue with nicotine patch I saw and evaluated the patient. I agree with the findings and plan of care as documented in the above note VS, I&O, 24H, Fishbone Vital Signs/I&O Vital Signs Date Time Temp Pulse Resp B/P (MAP) Pulse Ox O2 Delivery O2 Flow Rate FiO2 04/14/19 06:52 18 04/14/19 06:12 97.6 04/14/19 06:12 62 96 04/14/19 06:08 179/74 (109) 04/10/19 14:50 2.0 I&O- Last 24 Hours up to 6 AM 04/14/19 06:00 Intake Total 2360 ml Output Total 2200 ml Balance 160 ml Laboratory Data 24H LABS Laboratory Tests 2 04/13/19 12:54: Bedside Glucose (Misc Panel) 201H 04/13/19 16:14: Bedside Glucose (Misc Panel) 229H 04/13/19 20:52: Bedside Glucose (Misc Panel) 276H 04/14/19 06:23: Nucleated Red Blood Cells % (auto) 0.0, Anion Gap 5L, Glomerular Filtration Rate > 60.0, Blood Urea Nitrogen 10, Creatinine 0.84, Sodium Level 139, Potassium Level 3.7, Chloride Level 107, Carbon Dioxide Level 27, Calcium Level 9.0 CBC/BMP Laboratory Tests 04/14/19 06:23 Red Blood Count 3.68 L, Mean Corpuscular Volume 87.0, Mean Corpuscular Hemoglobin 28.3, Mean Corpuscular Hemoglobin Concent 32.5, Red Cell Distribution Width 14.1, Calcium Level 9.0 Microbiology Microbiology 04/10/19 Urine Culture - Final, Complete 04/04/19 Blood Culture - Final, Complete NO GROWTH AFTER 5 DAYS 04/04/19 Gram Stain - Final, Complete 04/04/19 Wound Culture - Final, Complete Pseudomonas Aeruginosa Providencia Rettgeri Corynebacterium Species 04/04/19 Blood Culture - Final, Complete NO GROWTH AFTER 5 DAYS LAURIE CASTELLANOS DO Apr 14, 2019 11:28 USHA THOMSON MD Apr 17, 2019 11:28
[2019-04-14 14:00] VITALS: BP 174/72
[2019-04-14 20:00] VITALS: BP 169/72
[2019-04-14] MEDS: ATORVASTATIN 20 MG TAB PO SCH (20:42)
[2019-04-15] MEDS: PIPERACILLIN/TAZOBACTAM SOD 3.375 GM in D5W MINI-BAG PLUS 50 ML IV SCH ×4 (00:09→17:48)
[2019-04-15] MEDS: NORCO, ANEXSIA 5/325MG TABLET (HYDROcodone/ACETAMINOPHEN) PO PRN ×4 (00:09→18:31)
[2019-04-15 06:00] VITALS: BP 165/68
[2019-04-15] MEDS: HEPARIN SOD (PORCINE) 5000 UNITS/ML VIAL SQ SCH ×3 (06:05→21:03)
[2019-04-15 06:14] LABS: HEMATOCRIT 33.3 % (42.0-52.0); HEMOGLOBIN 10.7 g/dl (13.5-17.5); MEAN CORPUSCULAR HEMOGLOBIN 28.2 pg (27.0-33.0); MEAN CORPUSCULAR HGB CONC 32.1 g/dl (32.0-36.5); MEAN CORPUSCULAR VOLUME 87.6 fl (80.0-96.0); PLATELET COUNT, AUTOMATED 404 10^3/uL (150-450); WHITE BLOOD COUNT 8.3 10^3/uL (4.0-10.0)
[2019-04-15 06:43] LABS: BLOOD UREA NITROGEN 13 MG/DL (7-18); CALCIUM LEVEL 9.2 MG/DL (8.8-10.2); CARBON DIOXIDE LEVEL 28 MEQ/L (21-32); CHLORIDE LEVEL 106 MEQ/L (98-107); GLOMERULAR FILTRATION RATE > 60.0 (>49); GLUCOSE, FASTING 157 MG/DL (70-100); POTASSIUM SERUM 4.2 MEQ/L (3.5-5.1); SODIUM LEVEL 140 MEQ/L (136-145)
[2019-04-15] MEDS: HumaLOG INSULIN (NovoLOG) PER UNIT SC SCH ×4 (08:04→21:50)
[2019-04-15] MEDS: FLUCONAZOLE 100 MG TAB PO SCH (08:04)
[2019-04-15] MEDS: ASPIRIN 81 MG ENTERIC TAB PO SCH (08:04)
[2019-04-15] MEDS: LEVEMIR (INSULIN DETEMIR) 1 UNITS/0.01ML SC SCH ×2 (08:05→21:03)
--- NOTE | 2019-04-15 11:08 | IPNPDOC ---
Date Seen The patient was seen on 04/15/19. Progress Note SUBJECTIVE: Patient was seen and evaluated this morning. He currently has no new complaints. Denies any pain in his leg. Denies chest pain, shortness of breath. He is currently on day 11 of antibiotic treatment. OBJECTIVE PHYSICAL EXAMINATION: VITAL SIGNS: Please see below. GENERAL: Awake, alert, oriented, appears in no acute distress, lying in bed comfortably HEENT:. Atraumatic and normocephalic. Eyes nonicteric. Trachea is midline CARDIOVASCULAR: S1, S2, regular rate and rhythm. No clicks, rubs or murmurs. RESPIRATORY:. Clear vesicular breath sounds bilaterally. There is good respirato ry effort. Slightly prolonged expiratory phase. No wheezes, rhonchi or rales. ABDOMINAL: Soft, nondistended, nontender to palpation in all 4 quadrants No rebound tenderness or guarding EXTREMITIES:. No edema. Patient has dressings present over his right foot NEUROLOGICAL:. No focal neurological deficits PSYCHOLOGICAL: Mood and affect appear appropriate LABORATORY DATA, IMAGING STUDIES, MICROBIOLOGY: Please see below. DVT prophylaxis ordered?: Heparin every 8 hours ASSESSMENT AND PLAN: Patient is a 68-year-old male who presented to the ER with a nonhealing right foot wound secondary cellulitis and ischemic limb. He was seen by podiatry and vascular surgery. He had received a profunda popliteal bypass with revascularization. He subsequently received debridement and was continued on IV Zosyn. Patient was unable to get an MRI is being treated for suspected osteomyelitis. Disease has been consulted for recommendations on antibiotic management. PROBLEMS: 1. Right foot wet gangrene, cellulitis and ischemia -Patient is currently status post day 5 of his profunda popliteal bypass surgery. He reports less pain in his leg. Patient's right foot is bandaged. He is currently followed by podiatry. Patient is on day 11 of Zosyn IV. Infectious disease has been consulted. Consultation is appreciated. Patient will likely be discharged on oral antibiotics per infectious disease recommendations. 2. Diabetes mellitus type 2: -Patient is currently on Levemir 10 units twice a day. He is fairly controlled. Will continue to monitor 3. Hypertension -Patient is currently hypertensive. Initially he has diabetes. Will start the patient on 10 mg lisinopril once daily 4. Nicotine dependence -Will continue with nicotine patch. 5. Intertrigo -Patient had been tried on presentation was started on Diflucan daily. He is currently on day 11. I saw and evaluated the patient. I agree with the findings and plan of care as documented in the above note VS, I&O, 24H, Fishbone Vital Signs/I&O Vital Signs Date Time Temp Pulse Resp B/P (MAP) Pulse Ox O2 Delivery O2 Flow Rate FiO2 04/15/19 06:35 16 04/15/19 06:00 98.0 70 165/68 (100) 97 04/10/19 14:50 2.0 I&O- Last 24 Hours up to 6 AM 04/15/19 06:00 Intake Total 2060 ml Output Total 2425 ml Balance -365 ml Laboratory Data 24H LABS Laboratory Tests 2 04/14/19 11:46: Bedside Glucose (Misc Panel) 243H 04/14/19 17:15: Bedside Glucose (Misc Panel) 193H 04/14/19 21:08: Bedside Glucose (Misc Panel) 207H 04/15/19 05:59: Nucleated Red Blood Cells % (auto) 0.0, Anion Gap 6L, Glomerular Filtration Rate > 60.0, Blood Urea Nitrogen 13, Creatinine 0.90, Sodium Level 140, Potassium Level 4.2, Chloride Level 106, Carbon Dioxide Level 28, Calcium Level 9.2 CBC/BMP Laboratory Tests 04/15/19 05:59 Red Blood Count 3.80 L, Mean Corpuscular Volume 87.6, Mean Corpuscular Hemoglobin 28.2, Mean Corpuscular Hemoglobin Concent 32.1, Red Cell Distribution Width 14.5, Calcium Level 9.2 Microbiology Microbiology 04/10/19 Urine Culture - Final, Complete LAURIE CASTELLANOS DO Apr 15, 2019 11:08 USHA THOMSON MD Apr 17, 2019 11:36
[2019-04-15] MEDS: LISINOPRIL 10 MG TAB PO SCH (12:59)
--- NOTE | 2019-04-15 13:02 | IPNPDOC ---
Text Note Date of Service The patient was seen on 04/15/19. NOTE Vascular Surgery Dr Salmon. The Patient was seen and examined this AM during dressing change with Infectious disease, Dr Jolly. The pt's Rt foot wounds appear to be improving with less eschar and increased pink tissue. The pt was reviewed by Dr Jolly with Dr. Goodwin with plan to continue to monitor his healing for now. The Patient is POD5 status post right lower extremity profunda to below-knee popliteal bypass. He has strong signal over the bypass with doppler, and strong PT/DP with doppler of the right foot this AM. All incisions, four small incisions on the upper thigh, one at the groin and one below the knee, are clean dry and intact. No drainage noted on postoperative dressings which were replaced today with optifoam dressing to keep the areas clean and dry. The patient tolerated this well. Plan to continue local wound care on the foot per the wound care nurses, and local wound care to the bypass incisions. Continue to encourage high-protein diet to help with wound healing. Continue to monitor. VS,Fishbone, I+O VS, Fishbone, I+O Laboratory Tests 04/15/19 05:59 Red Blood Count 3.80 L, Mean Corpuscular Volume 87.6, Mean Corpuscular Hemoglobin 28.2, Mean Corpuscular Hemoglobin Concent 32.1, Red Cell Distribution Width 14.5, Calcium Level 9.2 Vital Signs Date Time Temp Pulse Resp B/P (MAP) Pulse Ox O2 Delivery O2 Flow Rate FiO2 04/15/19 12:49 16 04/15/19 06:00 98.0 70 165/68 (100) 97 04/10/19 14:50 2.0 I&O- Last 24 Hours up to 6 AM 04/15/19 05:59 Intake Total 2060 ml Output Total 2675 ml Balance -615 ml Amara Hawkins Apr 15, 2019 13:02
[2019-04-15 14:31] VITALS: BP 170/63
--- NOTE | 2019-04-15 19:08 | IPN ---
DATE: 04/15/2019 Mr. Khoury was seen today with vascular team and nurses. The right foot dressing was changed. The patient complains of severe pain and cramps, but otherwise he is doing well. He has no nausea, vomiting, or diarrhea. No abdominal pain. PHYSICAL EXAMINATION: Temperature is 98, pulse 70, respirations 16, blood pressure 165/68, oxygen saturation 97%. HEART: Normal S1, S2. No murmurs, rubs or gallops. LUNGS: Clear. No wheezes, rales or rhonchi. ABDOMEN: Soft, nontender. No hepatosplenomegaly. EXTREMITIES: No edema. Right foot has four incisions of the upper thigh where the vascular bypass graft was done. Zelda are in place. They are all clean, dry, and intact. There is no drainage. The calf has a large ulcer posteriorly with a central eschar that has decreased in size. It measures probably 3 x 2 cm, and that ulcer size is about 10 x 8 cm with some granulation tissue. The foot has denuded skin but has granulation tissue. There are some eschars on all four toes; that is more of a skin eschar than gangrenous toes. Pulses are detected. IMPRESSION: 1. Gangrene of the right foot with superimposed Pseudomonas infection and providentia. The patient is doing much better. His white count is normal. He has been on intravenous (IV) Zosyn since April 04, currently day #12. 2. Severe peripheral vascular disease status post bypass, done by Dr. Salmon with marked improved wound and circulation. He underwent a right lower extremity profunda to below-knee popliteal bypass. Wounds are healing well. 3. Poor compliance and difficult patient. I am concerned with his discharged home with all those open wounds, and probably rehabilitation unit, penitentiary until the wounds are completely healed would be more appropriate for him. 4. History of tobacco abuse with concern that the patient will restart smoking if he gets discharged home, and the wounds will not heal. PLAN: Would discontinue IV Zosyn in 48 hours. That would finish a 14-day course of antibiotic. Continue with Vashe dressing on denuded skin to decrease colonization with pseudomonas. The patient will not need long-term antibiotics. I suspect the wound will heal without below-knee amputation since revascularization.
[2019-04-15 20:40] VITALS: BP 165/63
--- NOTE | 2019-04-15 20:56 | CR ---
DATE OF CONSULTATION: 04/13/2019 Asked to consult by hospitalist for evaluation of antibiotic need for discharge home on a patient with gangrene of the right foot with severe peripheral vascular disease. HISTORY OF PRESENT ILLNESS: Mr. Khoury is a 68-year-old gentleman with a history of severe peripheral vascular disease, type 2 diabetes, who was admitted with right foot gangrene. The patient had been following up with Dr. Goodwin and Dr. Og. He was supposed to have revascularization done as an outpatient but no-showed to his appointment, and he was admitted with acute right foot pain and gangrene over a couple days prior to admission. He was noting increasing redness and swelling. He denied having any fever but had some chills. He had no chest pain or shortness of breath. No nausea, vomiting, or diarrhea. The patient was started on intravenous (IV) vancomycin and Zosyn. Vancomycin was discontinued on April 07, and he remains on IV Zosyn. Wound cultures were positive for Pseudomonas aeruginosa, Proteus, and Corynebacterium. He was seen in consultation with Dr. Og, Dr. Cedeño, and Dr. Salmon to get a bypass April 11. He had a right lower extremity profunda to below-knee popliteal bypass, and his pulses have improved as well as the wound. PAST MEDICAL HISTORY: Significant for: 1. Noncompliance. 2. Severe peripheral vascular disease. 3. Diabetes, type 2. 4. Previously treated with a right axillofemoral-femoral artery bypass. 5. Nicotine dependence. 6. Hyperlipidemia. PAST SURGICAL HISTORY: 1. Right axillofemoral bypass. 2. Right to left femoral-femoral bypass graft done by Dr. Escalante in [place]. SOCIAL HISTORY: He is a smoker, half pack a day. He denies alcohol use. He lives alone. REVIEW OF SYSTEMS: He has no nausea, vomiting, diarrhea. No abdominal pain, chest pain. No shortness of breath. He complains only of right foot pain. PHYSICAL EXAMINATION: : He is an unkempt, older than stated age, small gentleman in no acute distress. Temperature is 97.9, pulse 58, respirations 17, blood pressure 150/70, oxygen saturation 96% on room air. HEART: Normal S1, S2. No murmurs, rubs, or gallops appreciated. LUNGS: Clear. No wheezes, rales, or rhonchi. ABDOMEN: Soft, nontender. No hepatosplenomegaly. GENITOURINARY: Normal for age. Sitting in stool in his bed. EXTREMITIES: No clubbing, cyanosis, or edema. His left foot had no ulcerations. Dry plantar aspect of the foot. Right pulses and nonpalpable except by Doppler. Right foot has gangrene of all the distal toes, including all five with black eschar. Right foot has denuded skin with granulation tissue. Right calf has an ulcer measuring about 15 cm x 5 cm with a black eschar and some underlying granulation tissue. NEUROLOGIC: Normal upper and lower extremity strength. PSYCHOLOGIC: Affect appropriate. LABORATORY DATA: Sodium 140, potassium 3.8, chloride 107, bicarbonate 27, BUN 11, creatinine 0.85, glucose 166, calcium 8.7. CRP 3.67, down to 1.66. White count 11.7, hemoglobin 9.7, hematocrit 30.3, platelets 351. ESR more than 140. Sodium 140, potassium 3.8, chloride 107, bicarbonate 27, BUN 11, creatinine 0.85, glucose 166, calcium 8.7, CRP 1.66. PT 13.8, PTT 22.2. Vancomycin trough on April 06 was 7.7. Glucose has been running between 197 and 235. Blood cultures, two sets, on admission, April 04, were no growth. Urine culture was negative on April 10. Wound culture has heavy growth of pseudomonas with [place] to Zosyn of 16, meropenem [place] of 4, intermediate to cefepime, Providencia resistant to ampicillin and cefazolin and Corynebacterium. X-ray did not show acute osteomyelitis. Vascular ultrasound done on April 08 for greater saphenous vein mapping Chest x-ray: No acute disease. IMPRESSION: This is a 68-year-old gentleman with a history of diabetes, type 2, peripheral vascular disease, tobacco abuse, who was admitted with acute gangrene of the right foot and calf, who has undergone revascularization surgery by Dr. Salmon, profunda artery bypass to [id number] popliteal artery with improved circulation and improved healing of the wounds. The calf wound has some granulation tissue but some eschar as well. The foot also looks like it is healing well, but the toes, especially peripherally, will probably not heal and auto-amputate. At this time, patient has gram-negative pathogens with the pseudomonas been quite resistant. There will not be any oral antibiotic regimen that would cover the pseudomonas, but I do not think antibiotics are the issue with this foot as much as dressing, topical Vashe, to kill the overlying biofilm of pseudomonas as well as vigorous debridement to be done at the wound clinic. PLAN: Continue with IV Zosyn while the patient is the hospital. Continue the outpatient care with Dr. Og with aggressive wound debridement and Vashe dressings. Use Santyl on the calf muscle to allow debridement of the black eschar. Will discuss the case with Dr. Og to make sure he is in agreement. Even though his erythrocyte sedimentation rate (ESR) is more than 140, I do suspect he does have osteomyelitis of the distal tip of the toes, but I do not think these will heal even after vascularization. NOY
[2019-04-15] MEDS: ATORVASTATIN 20 MG TAB PO SCH (21:03)
[2019-04-15] MEDS: ACETAMINOPHEN TAB 650MG DOSE (2X325MG) PO PRN (21:04)
[2019-04-16] MEDS: PIPERACILLIN/TAZOBACTAM SOD 3.375 GM in D5W MINI-BAG PLUS 50 ML IV SCH ×4 (01:10→17:53)
[2019-04-16] MEDS: NORCO, ANEXSIA 5/325MG TABLET (HYDROcodone/ACETAMINOPHEN) PO PRN ×3 (01:10→17:54)
[2019-04-16] MEDS: ACETAMINOPHEN TAB 650MG DOSE (2X325MG) PO PRN ×2 (06:04→21:07)
[2019-04-16] MEDS: HEPARIN SOD (PORCINE) 5000 UNITS/ML VIAL SQ SCH ×3 (06:04→21:08)
[2019-04-16 06:42] VITALS: BP 127/50
[2019-04-16 07:27] LABS: HEMATOCRIT 33.2 % (42.0-52.0); HEMOGLOBIN 10.5 g/dl (13.5-17.5); MEAN CORPUSCULAR HEMOGLOBIN 27.6 pg (27.0-33.0); MEAN CORPUSCULAR HGB CONC 31.6 g/dl (32.0-36.5); MEAN CORPUSCULAR VOLUME 87.1 fl (80.0-96.0); PLATELET COUNT, AUTOMATED 423 10^3/uL (150-450); RED BLOOD COUNT 3.81 10^6/uL (4.30-6.10); WHITE BLOOD COUNT 9.6 10^3/uL (4.0-10.0)
[2019-04-16 07:45] LABS: BLOOD UREA NITROGEN 18 MG/DL (7-18); CALCIUM LEVEL 9.3 MG/DL (8.8-10.2); CARBON DIOXIDE LEVEL 28 MEQ/L (21-32); CHLORIDE LEVEL 107 MEQ/L (98-107); CREATININE FOR GFR 0.96 MG/DL (0.70-1.30); GLOMERULAR FILTRATION RATE > 60.0 (>49); GLUCOSE, FASTING 157 MG/DL (70-100); POTASSIUM SERUM 4.1 MEQ/L (3.5-5.1); SODIUM LEVEL 140 MEQ/L (136-145)
[2019-04-16] MEDS: LISINOPRIL 10 MG TAB PO SCH (08:01)
[2019-04-16] MEDS: ASPIRIN 81 MG ENTERIC TAB PO SCH (08:01)
[2019-04-16] MEDS: SANTYL OINT 30GM TOP SCH (08:02)
[2019-04-16] MEDS: LEVEMIR (INSULIN DETEMIR) 1 UNITS/0.01ML SC SCH ×2 (08:02→21:07)
[2019-04-16] MEDS: HumaLOG INSULIN (NovoLOG) PER UNIT SC SCH ×4 (08:02→21:00)
[2019-04-16 10:00] VITALS: BP 144/64
--- NOTE | 2019-04-16 10:59 | IPNPDOC ---
Date Seen The patient was seen on 04/16/19. Progress Note SUBJECTIVE: Patient was seen this morning. Patient was agitated and refused examination OBJECTIVE PHYSICAL EXAMINATION: VITAL SIGNS: Please see below. GENERAL: Patient is agitated and refused examination this morning. LABORATORY DATA, IMAGING STUDIES, MICROBIOLOGY: Please see below. DVT prophylaxis ordered?: Heparin every 8 hours ASSESSMENT AND PLAN: Patient is a 68-year-old male who presented to the emergency department with a nonhealing right foot wound secondary to cellulitis and ischemic limb. He was seen by podiatry and vascular surgery and received a profunda popliteal bypass with revascularization of the limb. Patient subsequently received debridement and was given IV Zosyn.. He was unable to receive an MRI for his leg, however, is being treated for sepsis, osteomyelitis. Infectious disease has been consulted and has examined the patient and given recommendations for antibiotic management. Plan patient to complete a 12 day course of IV Zosyn and be discharged without any further antibiotics, but with close follow-up with wound care. PROBLEMS: 1. Right foot wet gangrene, cellulitis and ischemia -Patient is currently status post a 6 of his profunda popliteal bypass surgery. Patient was agitated today and did not answer any question. However, there've been no adverse events reported overnight. He is followed by podiatry. He is currently on day 12 of Zosyn IV. Infectious disease has been consulted and has seen the patient. Recommendations were continue IV Zosyn and stop tomorrow. Recommendations from infectious disease were to not continue oral antibiotics up on discharge. Patient will have to follow-up with wound care for management of his right lower extremity. 2., Diabetes mellitus type 2 -Patient is currently on Levemir 10 units twice a day. he'll need follow-up with his primary care physician. He takes metformin as an outpatient 3., Hypertension: -Patient had been fairly hypertensive. He does have diabetes. He was started on lisinopril 10 mg yesterday. His blood pressure is currently under better control. 4. Nicotine dependence -Will continue with nicotine patch DISPOSITION: Patient had refused examination today. Currently, on his last day of antibiotic treatment, likely to be discharged in 24-48 hours with follow-up with wound care. I saw and evaluated the patient. He declined physical exam today. I agree with the findings and plan of care as documented in the above note VS, I&O, 24H, Fishbone Vital Signs/I&O Vital Signs Date Time Temp Pulse Resp B/P (MAP) Pulse Ox O2 Delivery O2 Flow Rate FiO2 04/16/19 08:31 16 04/16/19 08:01 127/50 04/16/19 06:42 98.2 57 97 04/10/19 14:50 2.0 I&O- Last 24 Hours up to 6 AM 04/16/19 06:00 Intake Total 2050 ml Output Total 2155 ml Balance -105 ml Laboratory Data 24H LABS Laboratory Tests 2 04/15/19 12:11: Bedside Glucose (Misc Panel) 208H 04/15/19 16:41: Bedside Glucose (Misc Panel) 236H 04/15/19 20:49: Bedside Glucose (Misc Panel) 222H 04/16/19 07:05: Nucleated Red Blood Cells % (auto) 0.0, Anion Gap 5L, Glomerular Filtration Rate > 60.0, Blood Urea Nitrogen 18, Creatinine 0.96, Sodium Level 140, Potassium Level 4.1, Chloride Level 107, Carbon Dioxide Level 28, Calcium Level 9.3 CBC/BMP Laboratory Tests 04/16/19 07:05 Red Blood Count 3.81 L, Mean Corpuscular Volume 87.1, Mean Corpuscular Hemoglobin 27.6, Mean Corpuscular Hemoglobin Concent 31.6 L, Red Cell Distribution Width 14.9 H, Calcium Level 9.3 Microbiology Microbiology 04/10/19 Urine Culture - Final, Complete LAURIE CASTELLANOS DO Apr 16, 2019 10:59 USHA THOMSON MD Apr 17, 2019 11:56
[2019-04-16 14:00] VITALS: BP 135/61
[2019-04-16] MEDS: ATORVASTATIN 20 MG TAB PO SCH (21:07)
[2019-04-16 22:00] VITALS: BP 140/63
[2019-04-17] MEDS: NORCO, ANEXSIA 5/325MG TABLET (HYDROcodone/ACETAMINOPHEN) PO PRN ×3 (00:50→14:58)
[2019-04-17] MEDS: PIPERACILLIN/TAZOBACTAM SOD 3.375 GM in D5W MINI-BAG PLUS 50 ML IV SCH ×4 (00:50→17:27)
[2019-04-17] MEDS: HEPARIN SOD (PORCINE) 5000 UNITS/ML VIAL SQ SCH ×3 (05:58→21:13)
[2019-04-17 06:00] VITALS: BP 143/63
[2019-04-17 07:38] LABS: HEMATOCRIT 36.2 % (42.0-52.0); HEMOGLOBIN 11.3 g/dl (13.5-17.5); MEAN CORPUSCULAR HEMOGLOBIN 27.2 pg (27.0-33.0); MEAN CORPUSCULAR HGB CONC 31.2 g/dl (32.0-36.5); PLATELET COUNT, AUTOMATED 453 10^3/uL (150-450); RED BLOOD COUNT 4.16 10^6/uL (4.30-6.10); WHITE BLOOD COUNT 10.2 10^3/uL (4.0-10.0)
[2019-04-17 07:55] LABS: BLOOD UREA NITROGEN 18 MG/DL (7-18); CALCIUM LEVEL 9.3 MG/DL (8.8-10.2); CARBON DIOXIDE LEVEL 29 MEQ/L (21-32); CHLORIDE LEVEL 105 MEQ/L (98-107); CREATININE FOR GFR 0.98 MG/DL (0.70-1.30); GLOMERULAR FILTRATION RATE > 60.0 (>49); GLUCOSE, FASTING 163 MG/DL (70-100); POTASSIUM SERUM 3.7 MEQ/L (3.5-5.1); SODIUM LEVEL 141 MEQ/L (136-145)
[2019-04-17] MEDS: ASPIRIN 81 MG ENTERIC TAB PO SCH (08:14)
[2019-04-17] MEDS: LISINOPRIL 10 MG TAB PO SCH (08:15)
[2019-04-17] MEDS: SANTYL OINT 30GM TOP SCH (08:16)
[2019-04-17] MEDS: HumaLOG INSULIN (NovoLOG) PER UNIT SC SCH ×4 (08:16→21:00)
[2019-04-17] MEDS: LEVEMIR (INSULIN DETEMIR) 1 UNITS/0.01ML SC SCH ×2 (08:16→21:13)
--- NOTE | 2019-04-17 08:42 | IPNPDOC ---
Date Seen The patient was seen on 04/17/19. Progress Note SUBJECTIVE: Patient reports that he is feeling well today. He denies any complaints of any difficulties with his bowels or urine. He denies any pain in his foot chest pressure shortness of breath nausea or vomiting. OBJECTIVE PHYSICAL EXAMINATION: VITAL SIGNS: Please see below. GENERAL: Awake alert oriented sitting up in bed watching television he appears mildly irritated but agreeable for exam today HEENT:. Atraumatic and normocephalic. Eyes nonicteric. Trachea is midline, large foss, poor dentition CARDIOVASCULAR: S1, S2, regular rate and rhythm. No clicks, rubs or murmurs. RESPIRATORY: Clear vesicular breath sounds bilaterally. There is good respiratory effort. No wheezes, rhonchi or rales. ABDOMINAL: Soft, nondistended, nontender to palpation in all 4 quadrants No rebound tenderness or guarding EXTREMITIES:. No edema. Patient has dressings present over his right foot clear yellow fluid stained at hallux NEUROLOGICAL:. No focal neurological deficits PSYCHOLOGICAL: Mildly irritated but improved from previous days visits LABORATORY DATA, IMAGING STUDIES, MICROBIOLOGY: Please see below. DVT prophylaxis ordered?: Heparin every 8 hours ASSESSMENT AND PLAN: Patient is a 68-year-old male with right foot wound PROBLEMS: 1. Right foot wet gangrene, cellulitis and ischemia. Vascular surgery podiatry and infectious disease consultations all greatly appreciated. Patient is status post revascularization there is some evidence of improvement in his right lower extremity wound. We'll continue to monitor with wound care and time to see if he is to continue to improve. I initially did have some concern for deeper infection possibly osteomyelitis. Infectious disease recommended discontinuing antibiotics at the end of today. Time will tell the patient is able to remain compliant with therapies or if he ends up losing the leg. For the time being we'll continue with limb salvaging endeavors. Continue with pain control 2. Diabetes mellitus type 2: Continue with Levemir and sliding scale fingersticks well controlled. 3. Hypertension: Controlled he is started on lisinopril during this hospitalization. 4. Nicotine dependence: Sensation calcium provided previously, Will continue with nicotine patch. 5. Peripheral arterial disease: He is on aspirin and statin status post intervention. DVT prophylaxis: Continue heparin Disposition: Pending podiatry, PT note from 9:30 suggest patient is appropriate for home with services and he has declined TO work with PT sessions VS, I&O, 24H, Fishbone Vital Signs/I&O Vital Signs Date Time Temp Pulse Resp B/P (MAP) Pulse Ox O2 Delivery O2 Flow Rate FiO2 04/17/19 08:15 143/63 04/17/19 08:15 18 04/17/19 06:00 97.5 60 96 I&O- Last 24 Hours up to 6 AM 04/17/19 06:00 Intake Total 1689 ml Output Total 1950 ml Balance -261 ml Laboratory Data 24H LABS Laboratory Tests 2 04/16/19 12:17: Bedside Glucose (Misc Panel) 237H 04/16/19 17:30: Bedside Glucose (Misc Panel) 179H 04/16/19 19:52: Bedside Glucose (Misc Panel) 226H 04/17/19 07:15: Nucleated Red Blood Cells % (auto) 0.0, Anion Gap 7L, Glomerular Filtration Rate > 60.0, Blood Urea Nitrogen 18, Creatinine 0.98, Sodium Level 141, Potassium Level 3.7, Chloride Level 105, Carbon Dioxide Level 29, Calcium Level 9.3 CBC/BMP Laboratory Tests 04/17/19 07:15 Red Blood Count 4.16 L, Mean Corpuscular Volume 87.0, Mean Corpuscular Hemoglobin 27.2, Mean Corpuscular Hemoglobin Concent 31.2 L, Red Cell Distribution Width 14.9 H, Calcium Level 9.3 Microbiology Microbiology 04/10/19 Urine Culture - Final, Complete USHA THOMSON MD Apr 17, 2019 08:42
--- NOTE | 2019-04-17 12:52 | IPNPDOC ---
Date Seen The patient was seen on 04/17/19. Progress Note Patient seen and examined. Doing well. He says his pain continues to improve daily but he is tired again today. Dr. Goodwin following to see if any improvement comes about with improved blood flow. He is hopeful that with improved perfusion, some healing and foot salvage may be possible and so far improvements are noted. Patient is now postop day 7 status post right lower extremity profunda to below-knee popliteal bypass. He has a bounding pulses and strong signal over the bypass, biphasic popliteal signal are auscultated. All incisions, four small incisions on the upper thigh, one at the groin and one below the knee, are clean dry and intact. No significant drainage noted on dressings and all incisions cleaned today. The patient tolerated this well. Plan for now is to continue local wound care on the foot per the wound care nurses and Dr Goodwin. Check flow in bypass daily and local wound care to the bypass incisions with greg out at 14-17 days with my PA Amara Hawkisn. Analgesia when necessary. Encourage high-protein diet to help with wound healing. Patient is agreeable to this plan. I will be out of town for 2 weeks and will see the patient in clinic when I return to check he progress. If his foot takes a turn for the worse and he requires urgent amputation while I am away, then he may need ortho or gen surg consultation for amputation vs transfer. Hopefully, he will continue to improve and no amputation will be needed. VS, I&O, 24H, Fishbone Vital Signs/I&O Vital Signs Date Time Temp Pulse Resp B/P (MAP) Pulse Ox O2 Delivery O2 Flow Rate FiO2 04/17/19 08:45 18 04/17/19 08:15 143/63 04/17/19 06:00 97.5 60 96 I&O- Last 24 Hours up to 6 AM 04/17/19 08:59 Intake Total 1329 ml Output Total 1700 ml Balance -371 ml Laboratory Data 24H LABS Laboratory Tests 2 04/16/19 17:30: Bedside Glucose (Misc Panel) 179H 04/16/19 19:52: Bedside Glucose (Misc Panel) 226H 04/17/19 07:15: Nucleated Red Blood Cells % (auto) 0.0, Anion Gap 7L, Glomerular Filtration Rate > 60.0, Blood Urea Nitrogen 18, Creatinine 0.98, Sodium Level 141, Potassium Level 3.7, Chloride Level 105, Carbon Dioxide Level 29, Calcium Level 9.3 04/17/19 11:27: Bedside Glucose (Misc Panel) 260H CBC/BMP Laboratory Tests 04/17/19 07:15 Red Blood Count 4.16 L, Mean Corpuscular Volume 87.0, Mean Corpuscular Hemoglobin 27.2, Mean Corpuscular Hemoglobin Concent 31.2 L, Red Cell Distribution Width 14.9 H, Calcium Level 9.3 Microbiology Microbiology 04/10/19 Urine Culture - Final, Complete RICHY CHILDRESS MD Apr 17, 2019 12:52
[2019-04-17 13:39] VITALS: BP 162/55
[2019-04-17] MEDS: ATORVASTATIN 20 MG TAB PO SCH (21:13)
[2019-04-17] MEDS: ACETAMINOPHEN TAB 650MG DOSE (2X325MG) PO PRN (21:14)
[2019-04-17 22:00] VITALS: BP 145/54
[2019-04-18] MEDS: PIPERACILLIN/TAZOBACTAM SOD 3.375 GM in D5W MINI-BAG PLUS 50 ML IV SCH ×2 (00:14→06:19)
[2019-04-18 06:00] VITALS: BP 161/62
[2019-04-18] MEDS: NORCO, ANEXSIA 5/325MG TABLET (HYDROcodone/ACETAMINOPHEN) PO PRN ×3 (06:18→20:54)
[2019-04-18] MEDS: HEPARIN SOD (PORCINE) 5000 UNITS/ML VIAL SQ SCH ×3 (06:19→20:54)
[2019-04-18] MEDS: ASPIRIN 81 MG ENTERIC TAB PO SCH (08:54)
[2019-04-18] MEDS: LISINOPRIL 10 MG TAB PO SCH (08:54)
[2019-04-18] MEDS: HumaLOG INSULIN (NovoLOG) PER UNIT SC SCH ×4 (08:55→20:26)
[2019-04-18] MEDS: SANTYL OINT 30GM TOP SCH (08:55)
[2019-04-18] MEDS: LEVEMIR (INSULIN DETEMIR) 1 UNITS/0.01ML SC SCH ×2 (08:55→20:55)
--- NOTE | 2019-04-18 11:26 | IPNPDOC ---
Date Seen The patient was seen on 04/18/19. Progress Note SUBJECTIVE: Patient seen and examined this morning. Currently has no new complaints. Patient is continued with wound care presentation of infectious dis ease and podiatry. His IV antibiotics and been discontinued. OBJECTIVE PHYSICAL EXAMINATION: VITAL SIGNS: Please see below. GENERAL: Patient is awake, alert and oriented. does not appear to be in acute distress HEENT: Atraumatic, normocephalic. Eyes are nonicteric. Trachea is midline. Mucous membranes are pink and moist. No conjunctival pallor CARDIOVASCULAR:. Normal S1, S2, regular rate and rhythm. No clicks, rubs or murmurs. Capillary refills less than 2 seconds. RESPIRATORY:. Clear vesicular breath sounds bilaterally with good respiratory effort. There is no wheezes, rhonchi or rales. Prolonged expiratory phase ABDOMINAL: Soft, nondistended, nontender to palpation in all 4 quadrants. No rebound tenderness or guarding. No hernias or bruising EXTREMITIES: No edema. Patient has continued dressing over his right foot. He has a compressive dressing on his right thigh NEUROLOGICAL:. No focal neurological deficits PSYCHOLOGICAL: Patient has a labile mood LABORATORY DATA, IMAGING STUDIES, MICROBIOLOGY: Please see below. DVT prophylaxis ordered?: Heparin every 8 hours ASSESSMENT AND PLAN: Patient is a 68-year-old male who presents to emergency department with a nonhealing right foot with secondary cellulitis and ischemic limb. He was seen by podiatry and vascular surgery, received profunda popliteal bypass with revascularization of the limb. Patient subsequently received debridement and was given IV Zosyn. He was unable to receive an MRI of his foot due to difficulty holding his foot steady, and has been treated for suspected cellulitis and possible osteomyelitis. Infectious disease was consulted and examined the patient and has given recommendations for antibiotic management. Patient has completed a 12 day course of IV Zosyn. Case discussed with podiatry, who agrees with the patient is likely not fit care for his wounds at home and would benefit from [place] [facility]. PROBLEMS: 1. Right foot wet gangrene, cellulitis and ischemia -Patient is currently status post a 8 of his profunda popliteal bypass surger y. -Patient is completed a 12 day course of IV Zosyn as recommended by infectious disease. Patient will not need further antibiotic treatment. He will continue with his current wound care regimen. Regarding discharge, the patient has not worked with physical therapy since April 11 at which point they recommended home with home services. It is felt by primary hospitalist team, podiatry, and infectious disease that the patient is likely not well equipped to deal with his wounds at home and would benefit from [place] [facility] for the time while his wounds heal. -Patient will be made ALC status 2., Diabetes mellitus type 2 -Patient is currently on Levemir 10 units twice a day. he'll need follow-up with his primary care physician. He takes metformin as an outpatient 3., Hypertension: -Patient had been fairly hypertensive. He does have diabetes. He was started on lisinopril 10 mg yesterday. His blood pressure is currently under better control. 4. Nicotine dependence -Will continue with nicotine patch DISPOSITION: Patient replacement for [place] [facility] for ongoing care of his wounds. Currently ALC status I saw and evaluated the patient. I agree with the findings and plan of care as documented in the above note VS, I&O, 24H, Fishbone Vital Signs/I&O Vital Signs Date Time Temp Pulse Resp B/P (MAP) Pulse Ox O2 Delivery O2 Flow Rate FiO2 04/18/19 08:54 161/62 04/18/19 06:48 18 04/18/19 06:00 97.6 67 99 I&O- Last 24 Hours up to 6 AM 04/18/19 06:00 Intake Total 1500 ml Output Total 1100 ml Balance 400 ml Laboratory Data 24H LABS Laboratory Tests 2 04/17/19 11:27: Bedside Glucose (Misc Panel) 260H 04/17/19 17:10: Bedside Glucose (Misc Panel) 212H 04/17/19 20:33: Bedside Glucose (Misc Panel) 169H 04/18/19 08:45: Bedside Glucose (Misc Panel) 216H Microbiology Microbiology 04/10/19 Urine Culture - Final, Complete LAURIE CASTELLANOS DO Apr 18, 2019 11:26 USHA THOMSON MD Apr 18, 2019 15:22
[2019-04-18 14:00] VITALS: BP 151/59
--- NOTE | 2019-04-18 14:09 | IPNPDOC ---
Date Seen The patient was seen on 04/18/19. Progress Note Vascular Surgery Dr Salmon. The Patient was seen and examined this afternoon. The pt's Rt foot is bandaged. The plan as previously discussed with Dr. Goodwin is to continue to monitor his healing for now. The Patient is POD8 status post right lower extremity profunda to below-knee popliteal bypass. He has strong signal over the bypass with doppler. All incisions, four small incisions on the upper thigh, one at the groin and one below the knee, are clean dry and intact. No drainage is noted on optifoam dressings. Continue to keep the areas clean and dry. Plan is to continue local wound care on the foot as per Podiatry and the wound care nurses, and local wound care to the bypass incisions. Plan to remove stapes day 14-17 post op. Continue to encourage high-protein diet to help with wound healing. Continue to monitor. VS, I&O, 24H, Fishbone Vital Signs/I&O Vital Signs Date Time Temp Pulse Resp B/P (MAP) Pulse Ox O2 Delivery O2 Flow Rate FiO2 04/18/19 13:26 18 04/18/19 08:54 161/62 04/18/19 06:00 97.6 67 99 I&O- Last 24 Hours up to 6 AM 04/18/19 06:00 Intake Total 1500 ml Output Total 1100 ml Balance 400 ml Laboratory Data 24H LABS Laboratory Tests 2 04/17/19 17:10: Bedside Glucose (Misc Panel) 212H 04/17/19 20:33: Bedside Glucose (Misc Panel) 169H 04/18/19 08:45: Bedside Glucose (Misc Panel) 216H 04/18/19 11:49: Bedside Glucose (Misc Panel) 174H Microbiology Microbiology 04/10/19 Urine Culture - Final, Complete Amara Hawkins Apr 18, 2019 14:09
[2019-04-18 20:01] VITALS: BP 154/59
[2019-04-18] MEDS: ATORVASTATIN 20 MG TAB PO SCH (20:53)
[2019-04-19] MEDS: HEPARIN SOD (PORCINE) 5000 UNITS/ML VIAL SQ SCH ×3 (05:03→21:13)
[2019-04-19] MEDS: NORCO, ANEXSIA 5/325MG TABLET (HYDROcodone/ACETAMINOPHEN) PO PRN ×2 (05:03→20:23)
[2019-04-19 05:05] VITALS: BP 176/75
[2019-04-19] MEDS: SANTYL OINT 30GM TOP SCH (09:00)
[2019-04-19] MEDS: MORPHINE 4 MG/ML 1ML VIAL/SYRINGE (J2270) IV PRN (09:36)
[2019-04-19] MEDS: ASPIRIN 81 MG ENTERIC TAB PO SCH (09:36)
[2019-04-19] MEDS: LISINOPRIL 10 MG TAB PO SCH (09:36)
[2019-04-19] MEDS: LEVEMIR (INSULIN DETEMIR) 1 UNITS/0.01ML SC SCH ×2 (09:36→20:23)
[2019-04-19] MEDS: HumaLOG INSULIN (NovoLOG) PER UNIT SC SCH ×4 (09:37→21:00)
[2019-04-19] MEDS ORDERED: LIDOCAINE 4% TOPICAL SOLN 50 ML BTL TOP ONE (10:00)
--- NOTE | 2019-04-19 14:49 | IPN ---
DATE: 04/19/2019 Patient was seen and examined at bedside. Denies overnight complaints. Vitals are reviewed. He has remained afebrile. Labs are reviewed. White blood cell count is 10.2. LOWER EXTREMITY EXAMINATION: Further improvement in wound base with some good granular tissue along the dorsal surface and posterior wounds. There is still some eschar and necrotic tissue at the toes and at the posterior wound. ASSESSMENT: Diabetic male with peripheral vascular disease status post bypass and right foot ulcerations. PLAN: The wound was debrided when using dermal curette and #15 blade. Wounds continue to improve with now minimal necrotic tissue. At this point, patient has potential viability of all toes and the foot. This, however is contingent on continued proper wound care. Discussed with patient that this would best be served at a nursing facility. It is discussed that this is very important for patient to have best potential for limb salvage by continuing to get regular appropriate wound care in a monitored setting. Will continue to follow.
[2019-04-19] MEDS: RAMELTEON 8 MG TAB (ROZEREM) PO SCH (20:22)
[2019-04-19] MEDS: ATORVASTATIN 20 MG TAB PO SCH (20:22)
[2019-04-20] MEDS: HEPARIN SOD (PORCINE) 5000 UNITS/ML VIAL SQ SCH ×3 (05:28→21:44)
[2019-04-20] MEDS: NORCO, ANEXSIA 5/325MG TABLET (HYDROcodone/ACETAMINOPHEN) PO PRN ×3 (05:28→18:36)
[2019-04-20 06:49] VITALS: BP 156/72
[2019-04-20] MEDS: LEVEMIR (INSULIN DETEMIR) 1 UNITS/0.01ML SC SCH ×2 (08:35→21:43)
[2019-04-20] MEDS: HumaLOG INSULIN (NovoLOG) PER UNIT SC SCH ×5 (08:36→21:44)
[2019-04-20] MEDS: ASPIRIN 81 MG ENTERIC TAB PO SCH (08:36)
[2019-04-20] MEDS: LISINOPRIL 10 MG TAB PO SCH (08:36)
[2019-04-20] MEDS: SANTYL OINT 30GM TOP SCH (11:01)
--- NOTE | 2019-04-20 11:45 | IPNPDOC ---
Text Note Date of Service The patient was seen on 04/20/19. NOTE Vascular Surgery Dr Salmon. The Patient was seen and examined this AM. Nursing reports the patient has been declining to get out of bed, declining to participate with therapy and declining to ambulate. It is also reported that he has been declining bandage changes to the right foot with nursing. The patient is currently ALC status and STR is pending as the patient has been d eclining this as well. There has been concern by primary hospitalist team, podiatry, and infectious disease that the patient is likely not well equipped to deal with his wounds at home and would benefit from [facility] placement for a while until his wounds are better healed. Dr. Goodwin followed up with the patient 04/19/19 noting improvement in wounds of the right foot. The Patient is POD10 status post right lower extremity profunda to below-knee popliteal bypass. He has strong signal noted today over the bypass with doppler. The patient's right foot and right ankle remained bandaged. All incisions, four small incisions on the upper thigh, one at the groin and one below the knee, are clean dry and intact. No drainage is noted on optifoam dressings. Continue to keep the areas clean and dry. Plan is to continue local wound care on the foot as per Podiatry and the wound care nurses, and local wound care to the bypass incisions. Plan to remove stapes day 14-17 post op. Continue to encourage high-protein diet to help with wound healing. Continue to monitor. VS,Fishbone, I+O VS, Fishbone, I+O Vital Signs Date Time Temp Pulse Resp B/P (MAP) Pulse Ox O2 Delivery O2 Flow Rate FiO2 04/20/19 08:36 156/72 04/20/19 06:49 97.4 71 18 95 I&O- Last 24 Hours up to 6 AM 04/20/19 06:00 Intake Total 1760 ml Output Total 1295 ml Balance 465 ml Amara Hawkins Apr 20, 2019 11:44
[2019-04-20] MEDS: ATORVASTATIN 20 MG TAB PO SCH (21:43)
[2019-04-20] MEDS: RAMELTEON 8 MG TAB (ROZEREM) PO SCH (21:43)
[2019-04-21] MEDS: HEPARIN SOD (PORCINE) 5000 UNITS/ML VIAL SQ SCH ×3 (05:35→21:38)
[2019-04-21 06:00] VITALS: BP 158/68
[2019-04-21] MEDS: HumaLOG INSULIN (NovoLOG) PER UNIT SC SCH ×4 (07:30→21:00)
[2019-04-21] MEDS: SANTYL OINT 30GM TOP SCH (09:00)
[2019-04-21] MEDS: LISINOPRIL 10 MG TAB PO SCH (09:15)
[2019-04-21] MEDS: ASPIRIN 81 MG ENTERIC TAB PO SCH (09:15)
[2019-04-21] MEDS: LEVEMIR (INSULIN DETEMIR) 1 UNITS/0.01ML SC SCH ×2 (09:16→21:39)
[2019-04-21] MEDS: RAMELTEON 8 MG TAB (ROZEREM) PO SCH (21:38)
[2019-04-21] MEDS: ATORVASTATIN 20 MG TAB PO SCH (21:39)
[2019-04-21] MEDS: NORCO, ANEXSIA 5/325MG TABLET (HYDROcodone/ACETAMINOPHEN) PO PRN (22:03)
[2019-04-22] MEDS: HEPARIN SOD (PORCINE) 5000 UNITS/ML VIAL SQ SCH ×3 (05:38→21:29)
[2019-04-22 05:44] VITALS: BP 162/66
[2019-04-22] MEDS: LISINOPRIL 10 MG TAB PO SCH (08:03)
[2019-04-22] MEDS: ASPIRIN 81 MG ENTERIC TAB PO SCH (08:04)
[2019-04-22] MEDS: NORCO, ANEXSIA 5/325MG TABLET (HYDROcodone/ACETAMINOPHEN) PO PRN ×2 (08:04→20:10)
[2019-04-22] MEDS: LEVEMIR (INSULIN DETEMIR) 1 UNITS/0.01ML SC SCH ×2 (08:04→20:10)
[2019-04-22] MEDS: HumaLOG INSULIN (NovoLOG) PER UNIT SC SCH ×4 (08:04→21:00)
[2019-04-22] MEDS: SANTYL OINT 30GM TOP SCH (08:05)
--- NOTE | 2019-04-22 13:17 | IPNPDOC ---
Text Note Date of Service The patient was seen on 04/22/19. NOTE Vascular Surgery Dr Salmon. The Patient was seen and examined this AM. Nursing reports the patient has been intermittently declining to get out of bed, declining to participate with therapy and declining to ambulate. It is also reported that he has been declining bandage changes to the right foot with nursing. The patient is currently ALC status and STR is pending. There has been concern by primary hospitalist team, podiatry, and infectious disease that the patient is likely not well equipped to deal with his wounds at home and would benefit from [place] [facility] for a while until his wounds are better healed. Dr. Goodwin followed up with the patient 04/19/19 noting improvement in wounds of the right foot. The Patient is POD12 status post right lower extremity profunda to below-knee popliteal bypass. He has strong signal noted today over the bypass with doppler at the mid leg and just above the ankle. The patient's right foot and right ankle remained bandaged. All incisions, four small incisions on the upper thigh, one at the groin and one below the knee, are clean dry and intact. There is no erythema or drainage. The wounds were cleaned today and optifoam dressings were changed. Continue to keep the areas clean and dry. Plan is to continue local wound care on the foot as per Podiatry and the wound care nurses, and local wound care to the bypass incisions. Plan to remove stapes day 14-17 post op. Continue to encourage high-protein diet to help with wound healing. Continue to monitor. VS,Fishbone, I+O VS, Fishbone, I+O Vital Signs Date Time Temp Pulse Resp B/P (MAP) Pulse Ox O2 Delivery O2 Flow Rate FiO2 04/22/19 08:34 18 04/22/19 08:03 162/66 04/22/19 05:44 97.6 57 97 I&O- Last 24 Hours up to 6 AM 04/22/19 06:00 Intake Total 1630 ml Output Total 881 ml Balance 749 ml Amara Hawkins Apr 22, 2019 13:17
[2019-04-22] MEDS: RAMELTEON 8 MG TAB (ROZEREM) PO SCH (20:09)
[2019-04-22] MEDS: ATORVASTATIN 20 MG TAB PO SCH (20:09)
[2019-04-23] MEDS: NORCO, ANEXSIA 5/325MG TABLET (HYDROcodone/ACETAMINOPHEN) PO PRN ×3 (05:29→21:13)
[2019-04-23] MEDS: HEPARIN SOD (PORCINE) 5000 UNITS/ML VIAL SQ SCH ×3 (05:30→21:13)
[2019-04-23 06:00] VITALS: BP 173/65
[2019-04-23 07:38] VITALS: BP 136/68
[2019-04-23] MEDS: LEVEMIR (INSULIN DETEMIR) 1 UNITS/0.01ML SC SCH ×2 (07:38→21:14)
[2019-04-23] MEDS: ASPIRIN 81 MG ENTERIC TAB PO SCH (07:38)
[2019-04-23] MEDS: LISINOPRIL 10 MG TAB PO SCH (07:38)
[2019-04-23] MEDS: HumaLOG INSULIN (NovoLOG) PER UNIT SC SCH ×4 (07:39→20:52)
[2019-04-23] MEDS: SANTYL OINT 30GM TOP SCH (09:00)
[2019-04-23 20:50] VITALS: BP 156/58
[2019-04-23] MEDS: ATORVASTATIN 20 MG TAB PO SCH (21:13)
[2019-04-23] MEDS: RAMELTEON 8 MG TAB (ROZEREM) PO SCH (21:13)
[2019-04-24 06:00] VITALS: BP 161/52
[2019-04-24] MEDS: HEPARIN SOD (PORCINE) 5000 UNITS/ML VIAL SQ SCH ×3 (06:12→21:22)
[2019-04-24] MEDS: NORCO, ANEXSIA 5/325MG TABLET (HYDROcodone/ACETAMINOPHEN) PO PRN ×2 (06:19→21:18)
[2019-04-24] MEDS: LISINOPRIL 10 MG TAB PO SCH (07:54)
[2019-04-24] MEDS: ASPIRIN 81 MG ENTERIC TAB PO SCH (07:54)
[2019-04-24] MEDS: HumaLOG INSULIN (NovoLOG) PER UNIT SC SCH ×4 (07:55→21:00)
[2019-04-24] MEDS: LEVEMIR (INSULIN DETEMIR) 1 UNITS/0.01ML SC SCH ×2 (07:56→21:00)
[2019-04-24] MEDS: SANTYL OINT 30GM TOP SCH (09:00)
[2019-04-24] MEDS: RAMELTEON 8 MG TAB (ROZEREM) PO SCH (21:00)
[2019-04-24] MEDS: ATORVASTATIN 20 MG TAB PO SCH (21:00)
[2019-04-25] MEDS: HEPARIN SOD (PORCINE) 5000 UNITS/ML VIAL SQ SCH ×3 (05:40→22:18)
[2019-04-25] MEDS: NORCO, ANEXSIA 5/325MG TABLET (HYDROcodone/ACETAMINOPHEN) PO PRN ×2 (05:40→13:01)
[2019-04-25 06:00] VITALS: BP 157/56
[2019-04-25] MEDS: LEVEMIR (INSULIN DETEMIR) 1 UNITS/0.01ML SC SCH ×2 (08:04→22:18)
[2019-04-25] MEDS: HumaLOG INSULIN (NovoLOG) PER UNIT SC SCH ×4 (08:04→21:00)
[2019-04-25] MEDS: ASPIRIN 81 MG ENTERIC TAB PO SCH (08:04)
[2019-04-25] MEDS: LISINOPRIL 10 MG TAB PO SCH (08:04)
--- NOTE | 2019-04-25 11:58 | IPNPDOC ---
Date Seen The patient was seen on 04/25/19. Progress Note SUBJECTIVE: Patient was seen and examined this morning. He currently has no new complaints. Patient is currently waiting placement. ARU screen has been placed. Patient has refused medications in the hospital. Most recently he was agreeable to ongoing rehabilitation for wound care/dressing changes OBJECTIVE PHYSICAL EXAMINATION: VITAL SIGNS: Please see below. GENERAL: Awake, alert, and oriented. He appears in no acute distress. Lying in bed comfortably. He is quick to anger HEENT: Atraumatic normocephalic. Eyes are nonicteric. Trachea is midline. CARDIOVASCULAR: Normal S1, S2. Regular rate and rhythm. No clicks, rubs, or murmurs. Capillary refill < 2 seconds RESPIRATORY: Clear vesicular breath sounds bilaterally. No wheezes, rhonchi, or rales. Good respiratory effort. No accessory muscle use ABDOMINAL: Soft, nondistended, nontender to palpation in all 4 quadrants. No rebound tenderness or guarding. Normoactive bowel sounds throughout EXTREMITIES: No edema. Right foot bandaged with minimal drainage. NEUROLOGICAL: No focal neurological deficits noted PSYCHOLOGICAL: Labile mood. Normal affect LABORATORY DATA, IMAGING STUDIES, MICROBIOLOGY: Please see below DVT prophylaxis ordered?: Heparin SQ ASSESSMENT AND PLAN: Patient is a 68-year-old male who presents to emergency department with a nonhealing right foot with secondary cellulitis and ischemic limb. He was seen by podiatry and vascular surgery, received profunda popliteal bypass with revascularization of the limb. Patient subsequently received debridement and was given IV Zosyn. He was unable to receive an MRI of his foot due to difficulty holding his foot steady, and has been treated for suspected cellulitis and possible osteomyelitis. Infectious disease was consulted and examined the patient and has given recommendations for antibiotic management. Patient has completed a 12 day course of IV Zosyn. Case discussed with podiatry, who agrees with the patient is likely not fit care for his wounds at home and would benefit from [facility] placement. PROBLEMS: 1. Right foot wet gangrene, cellulitis and ischemia -Patient has completed antibiotic treatment. Continued with wound care/dressing changes -Patient is agreeable to discharge to care home. He is currently awaiting placement. -ALC status. 2., Diabetes mellitus type 2 -Patient is currently on Levemir 10 units twice a day. he'll need follow-up with his primary care physician. He takes metformin as an outpatient -Patient refuses medications at times 3. Hypertension: -Patient had been fairly hypertensive. He does have diabetes. He was started on lisinopril 10 mg yesterday. His blood pressure is currently under better control. -Patient refuses medications at times. 4. Nicotine dependence -Will continue with nicotine patch DISPOSITION: Currently awaiting placement for care home and ongoing care of his right foot wound. VS, I&O, 24H, Fishbone Vital Signs/I&O Vital Signs Date Time Temp Pulse Resp B/P (MAP) Pulse Ox O2 Delivery O2 Flow Rate FiO2 04/25/19 08:04 157/56 04/25/19 06:10 15 04/25/19 06:00 97.8 65 95 I&O- Last 24 Hours up to 6 AM 04/25/19 06:00 Intake Total 1740 ml Output Total 1150 ml Balance 590 ml GME ATTESTATION GME ATTESTATION My faculty preceptor for this patient encounter was physically present during t he encounter and was fully available. All aspects of the patient interview, examination, medical decision making process, and medical care plan development were reviewed and approved by the faculty preceptor. The faculty preceptor is aware and concurs with the plan as stated in the body of this note and will attest to such by his/her cosignature. ATTENDING NOTE I, Mark Francis, have independently examined this patient and performed my own physical exam, as well as reviewed the documentation and edited where necessary. I have discussed in detail with the resident / student the findings and plan of treatment as documented by the resident / student and edited their note. I agree with their findings and treatment plan and have edited their documentation. I will continue to follow the patient during this hospital stay. LAURIE CASTELLANOS DO Apr 25, 2019 11:58 MARK FRANCIS MD Apr 25, 2019 15:27
[2019-04-25] MEDS: SANTYL OINT 30GM TOP SCH (15:54)
[2019-04-25] MEDS: RAMELTEON 8 MG TAB (ROZEREM) PO SCH (22:18)
[2019-04-25] MEDS: ATORVASTATIN 20 MG TAB PO SCH (22:18)
[2019-04-26 05:34] VITALS: BP 167/64
[2019-04-26] MEDS: HEPARIN SOD (PORCINE) 5000 UNITS/ML VIAL SQ SCH (05:49)
[2019-04-26] MEDS: LEVEMIR (INSULIN DETEMIR) 1 UNITS/0.01ML SC SCH (08:01)
[2019-04-26] MEDS: HumaLOG INSULIN (NovoLOG) PER UNIT SC SCH ×2 (08:02→12:54)
[2019-04-26] MEDS: ASPIRIN 81 MG ENTERIC TAB PO SCH (08:02)
[2019-04-26 08:03] VITALS: BP 167/64
[2019-04-26] MEDS: LISINOPRIL 10 MG TAB PO SCH (08:03)
[2019-04-26] MEDS: SANTYL OINT 30GM TOP SCH (09:00)
--- NOTE | 2019-04-26 10:56 | IPNPDOC ---
Date Seen The patient was seen on 04/26/19. Progress Note Vascular Surgery Dr Salmon. The Patient was seen and examined this AM. The pt is currently ALC status, PFS is anticipating discharge to [facility] today. The pt continues to intermittently decline bandage changes to the right foot with nursing. There has been concern by primary hospitalist team, podiatry, and infectious disease that the patient is likely not well equipped to deal with his wounds at home and would benefit from custodial placement for a while until his wounds are better healed. Dr. Goodwin followed up with the patient 04/19/19 noting improvement in wounds of the right foot. The Patient is POD16 status post right lower extremity profunda to below-knee popliteal bypass. He again has strong signal noted today over the bypass with doppler at the mid leg and just above the ankle. The patient's right foot and right ankle remained bandaged. All incisions, four small incisions on the upper thigh, one at the groin and one below the knee, are clean dry and intact. There is no erythema or drainage. The wounds were cleaned today, greg were removed and optifoam dressings were changed. Continue to keep the areas clean and dry. Plan is to continue local wound care on the foot as per Podiatry and the wound care, and continue local wound care to the bypass incisions. Continue to encourage high-protein diet to help with wound healing. The pt should follow up in the office in 1-2 weeks. Continue to monitor. VS, I&O, 24H, Fishbone Vital Signs/I&O Vital Signs Date Time Temp Pulse Resp B/P (MAP) Pulse Ox O2 Delivery O2 Flow Rate FiO2 04/26/19 05:34 97.4 71 18 167/64 (98) 96 I&O- Last 24 Hours up to 6 AM 04/26/19 06:00 Intake Total 1320 ml Output Total 1825 ml Balance -505 ml Amara Hawkins Apr 26, 2019 08:16
[2019-04-26] MEDS ORDERED: INSUDET SC (11:01)
[2019-04-26] MEDS ORDERED: LISI10TA4 PO (11:01)
[2019-04-26] MEDS ORDERED: ASPI81TAEC PO (11:01)
--- NOTE | 2019-04-26 11:39 | DS.PDOC ---
Discharge Summary General Date of Admission Apr 04, 2019 at 13:33 Date of Discharge 04/26/19 Primary Care Physician: Elizabeth Carbone Attending Physician: MARK TORRES MD Specialist/Consultants Involve: ALONSO FERRARA DPM Specialist/Consultants Involve Dr. Teto Jolly Infectious Disease Dr. Lucero Salmon Vascular Surgery Discharge Summary PROCEDURES PERFORMED DURING STAY: Aortogram. iliofemoral angiogram. Selective right common femoral artery catheter placement with right lower extremity angiogram. Selective right superficial femoral artery catheter placement with right lower extremity angiogram. Selective right popliteal artery catheter placement with right lower extremity angiogram. Recanalization of the occluded superficial femoral artery and popliteal artery junction. Right popliteal artery angioplasty with 6 x 100 balloon. Right superficial femoral artery angioplasty with 6 x 100 balloon. Right common femoral artery angioplasty with 6 x 100 balloon. MYNX closure of the left common femoral arteriotomy. 1. Redo groin exposure, extensive scarring, 45 minutes 2. Right profunda to below-knee popliteal bypass with greater saphenous in situ vein ADMITTING DIAGNOSES: 1. Right Foot wet gangrene/cellulitis/ischemia 2. Diabetes Mellitus Type 2 3. Nicotine Dependence DISCHARGE DIAGNOSES: 1. Right Foot wet gangrene/cellulitis/ischemia s/p profunda-popliteal bypass with revascularization 2. Diabetes Mellitus Type 2 3. Nicotine Dependence COMPLICATIONS/CHIEF COMPLAINT: Foot Ulcer Rt. HISTORY OF PRESENT ILLNESS: Patient is a 68-year-old male who was admitted to the [facility] emergency department for nonhealing right foot wound secondary to cellulitis and ischemic limb. Patient has a history significant for chronic right foot ulceration, peripheral vascular disease, and diabetes mellitus type 2, poorly controlled. Patient stated that he was seen in the office by Dr. Ferrara was noted to have redness, pain and swelling on his right foot. Patient stated that the pain increased over the subsequent days. Patient denied any fevers or chills. He denied nausea or vomiting. Presentation to the emergency department, the patient was vitally stable with an elevated white count. A foot x-ray was unrevealing. An MRI of the foot was ordered. However, the patient was unable to complete this as he was unable to hold his foot still. Patient was subsequently admitted for IV antibiotics and treatment of possible cellulitis and ischemic limb. During the patient's hospitalization was found to have ischemia in his right limb. Patient was evaluated by vascular surgery and received a profunda popliteal bypass grafting with revascularization. Patient was continued IV antibiotics was subsequently seen by podiatry for wound debridement. Patient was seen by infectious disease for antibiotic management. Patient was continued IV antibiotics for 2 weeks. He demonstrated significant improvement. Patient appeared medically stable, although he was a poor candidate for self-care as he is generally noncompliant with his medications and was likely that the patient would not be able to change his dressings on his own. At first, patient was resistant to placement. However, he has agreed to rehabilitation. Patient is currently accepted short-term rehabilitation at [facility] will be discharged. During the patient's hospitalization, he was found to be hyperglycemic, which was likely secondary to poorly controlled diabetes. Patient was started on subcutaneous Levemir 10 units twice a day. Additionally, patient has hypertension and was started on lisinopril 10 mg daily. These medications will be continued at discharge. DISCHARGE MEDICATIONS: Please see below. ALLERGIES: Please see below. PHYSICAL EXAMINATION ON DISCHARGE: VITAL SIGNS: Please see below. GENERAL: Awake, alert and oriented.. No acute distress, lying comfortably in bed HEENT: Atraumatic, normocephalic. Eyes nonicteric. Trachea is midline NECK:. No palpebral cervical, supraclavicular, or axillary lymphadenopathy CARDIOVASCULAR EXAMINATION: S1, S2, regular rate and rhythm. No clicks, rubs or murmurs. Capillary refill less than 2 seconds RESPIRATORY EXAMINATION:. Clear vesicular breath sounds bilaterally. No wheezes, rhonchi or rales. Good respiratory effort. No accessory muscle use ABDOMINAL EXAMINATION:. Soft, nondistended, nontender to palpation all 4 quadrants. No rebound tenderness or guarding. Normoactive bowel sounds throughout EXTREMITIES: No edema. Right foot is bandaged. Right leg incision healing well from profunda popliteal bypass SKIN: No rash or lesions NEUROLOGICAL EXAMINATION: No focal neurological deficits PSYCHIATRIC EXAMINATION: Mood and affect appear appropriate LABORATORY DATA: Please see below. IMAGING: Right tibia-fibula four views: There are no comparisons. There is diffuse soft tissue edema. There are no lytic, blastic or destructive skeletal changes. No periosteal reactive change. Mineralization is normal. There is calcified vascular atheroma. Impression: Diffuse soft tissue edema. Mineralization is normal. There are no lytic, blastic or destructive skeletal changes. Electronically Signed by Miquel Torre MD 04/04/2019 12:41 P Foot four views: The films are not labeled as to [id number], however the request states right foot. Comparison is 04/15/2016. There has been interim resection of the fifth digit metatarsal distal shaft. There is demineralization as an interval change . There are no lytic, blastic or destructive skeletal changes. There is no fracture or dislocation. Electronically Signed by Miquel Torre MD 04/04/2019 12:45 P A PA and lateral chest, the patient semi upright, 12:14 p.m.: Comparison is 04/14/2017. The lung hallman are clear. Cardiac size is normal. The william, mediastinum, skeletal structures are unremarkable. There are surgical clips in the soft tissues of the anterior right chest wall superimposed laterally over the right lung apex, unchanged. Impression: There are no acute cardiopulmonary findings. Electronically Signed by Miquel Torre MD 04/04/2019 12:40 P BILATERAL LOWER EXTREMITY VENOUS ULTRASOUND 04/08/2019. CLINICAL HISTORY: Greater saphenous vein vein mapping for possible femoral popliteal bypass. RIGHT GREATER SAPHENOUS VEIN: Junction: 5.1 mm Proximal: 5.1 mm Mid: 3.7 mm Technique: 3 mm Proximal calf: 2.8 mm Mid calf: 2.9 mm Distal calf: 3.2 mm. LEFT GREATER SAPHENOUS VEIN: Junction: 3.6 mm Proximal 3.6 mm. Mid: 2.4 mm Knee: 2.8 mm Proximal calf: 2.2 mm Mid calf: 2.0 mm Distal calf: 2.5 mm IMPRESSION: 1. Greater saphenous vein mapping as described above and technologist notes indicate that the requesting physician was present during the exam and desired only the greater saphenous evaluation. Electronically Signed by Duglas Romero MD 04/08/2019 07:32 P PROGNOSIS: Overall fair ACTIVITY: [As tolerated]. DIET: Consistent carbohydrate DISCHARGE PLAN: Patient is be discharged to [place] keep him for ongoing rehabilitation. Patient continue his home medications. He is continue lisinopril 10 mg daily for his hypertension. Regarding is diabetes, he is to continue his metformin. He is also to continue Levemir insulin 10 units twice a day. After discharge from rehabilitation, the patient is to follow-up with Dr. Ferrara of podiatry, as well as Dr. Jolly of infectious disease. - Advised to return to the ER if you experience any problems DISCHARGE CONDITION: [Stable]. TIME SPENT ON DISCHARGE: Greater than 45 minutes. Vital Signs/I&Os Vital Signs Date Time Temp Pulse Resp B/P (MAP) Pulse Ox O2 Delivery O2 Flow Rate FiO2 04/26/19 08:03 167/64 04/26/19 05:34 97.4 71 18 96 I&O- Last 24 Hours up to 6 AM 04/26/19 05:59 Intake Total 1460 ml Output Total 1875 ml Balance -415 ml Laboratory Data Labs 24H Laboratory Tests 2 04/25/19 11:46: Bedside Glucose (Misc Panel) 136H 04/25/19 16:53: Bedside Glucose (Misc Panel) 198H 04/25/19 20:59: Bedside Glucose (Misc Panel) 170H 04/26/19 05:35: Bedside Glucose (Misc Panel) 142H FSBS Laboratory Tests Test 04/25/19 11:46 04/25/19 16:53 04/25/19 20:59 04/26/19 05:35 Range/Units Bedside Glucose (Misc Panel) 136 198 170 142 80-115 MG/DL Discharge Medications Scheduled Aspirin (Aspirin EC) 81 Mg Tablet.dr, 81 MG PO DAILY Atorvastatin Calcium (Atorvastatin Calcium) 80 Mg Tab, 80 MG PO QHS, (Reported) Collagenase Clostridium Hist. (Santyl) 30 Gm Oint...g., 1 APLCT TOP DAILY, (Reported) APPLY TO FOOT WOUND Insulin Detemir (Levemir) 100 Unit/1 Ml Vial, 10 UNITS SC BID Lisinopril (Lisinopril) 10 Mg Tablet, 10 MG PO DAILY Metformin HCl (Metformin HCl) 1,000 Mg Tab, 1,000 MG PO BIDWM, (Reported) Nystatin (Nystatin Powder) 15 Gm Powder, 1 APLCT TOP DAILY, (Reported) APPLY TO FEET Trazodone HCl (Trazodone HCl) 100 Mg Tablet, 100 MG PO QHS, (Reported) Scheduled PRN Ketoconazole (Ketoconazole) 120 Ml Shampoo, 1 DOSE TOP DAILY PRN for INFLAMED SKIN, (Reported) APPLY TO SCALP AND AQUINO Naproxen Sodium (Aleve) 220 Mg Capsule, 220 MG PO BID PRN for PAIN, (Reported) Tramadol HCl (Tramadol HCl) 50 Mg Tablet, 50 MG PO DAILY PRN for PAIN, (Reported) Allergies Coded Allergies: ibuprofen (Verified Allergy, Severe, TROUBLE BREATHING, 04/04/19) strawberry (Verified Allergy, Severe, THROAT SWELLING, 04/04/19) GME ATTESTATION GME ATTESTATION My faculty preceptor for this patient encounter was physically present during the encounter and was fully available. All aspects of the patient interview, examination, medical decision making process, and medical care plan development were reviewed and approved by the faculty preceptor. The faculty preceptor is aware and concurs with the plan as stated in the body of this note and will attest to such by his/her cosignature. ATTENDING NOTE I, Mark Torres, have independently examined this patient and performed my own physical exam, as well as reviewed the documentation and edited where necessary. I have discussed in detail with the resident / student the findings and plan of treatment as documented by the resident / student and edited their note. I agree with their findings and treatment plan and have edited their documentation. I will continue to follow the patient during this hospital stay. Time spent on discharge 36 minutes LAURIE CASTELLANOS DO Apr 26, 2019 11:39 MARK TORRES MD Apr 26, 2019 15:35
== END 2019-04-26 13:00 | DRG 253 ==
LOC: M ED 09:38 → M ED INP 13:33 → M MS5PR 17:15
PROVIDERS: ADMIT Internal Medicine; ATTEND Internal Medicine
PROC: 047K3ZZ Dilation of Right Femoral Artery, Percutaneous Approach (ICD-10-PCS; 2019-04-05)
PROC: B41D1ZZ Fluoroscopy of Aorta and Bilateral Lower Extremity Arteries using Low Osmolar Contrast (ICD-10-PCS; 2019-04-05)
PROC: 047M3ZZ Dilation of Right Popliteal Artery, Percutaneous Approach (ICD-10-PCS; principal; 2019-04-05 15:30)
PROC: 041K09L Bypass Right Femoral Artery to Popliteal Artery with Autologous Venous Tissue, Open Approach (ICD-10-PCS; 2019-04-10)
PROC: 0JBN0ZZ Excision of Right Lower Leg Subcutaneous Tissue and Fascia, Open Approach (ICD-10-PCS; 2019-04-11)
PROC: 0JBN0ZZ Excision of Right Lower Leg Subcutaneous Tissue and Fascia, Open Approach (ICD-10-PCS; 2019-04-19)
DX: E11.52 Type 2 diabetes mellitus with diabetic peripheral angiopathy with gangrene (principal); L03.115 Cellulitis of right lower limb; E87.2 Acidosis; I70.261 Atherosclerosis of native arteries of extremities with gangrene, right leg; T82.898A Other specified complication of vascular prosthetic devices, implants and grafts, initial encounter; E11.621 Type 2 diabetes mellitus with foot ulcer; L97.514 Non-pressure chronic ulcer of other part of right foot with necrosis of bone; I70.221 Atherosclerosis of native arteries of extremities with rest pain, right leg; F17.200 Nicotine dependence, unspecified, uncomplicated; Z79.899 Other long term (current) drug therapy; Z79.4 Long term (current) use of insulin; Z79.82 Long term (current) use of aspirin; Z88.8 Allergy status to other drugs, medicaments and biological substances; Z88.6 Allergy status to analgesic agent; Z91.018 Allergy to other foods; B35.9 Dermatophytosis, unspecified; I10 Essential (primary) hypertension; Z91.19 Patient's noncompliance with other medical treatment and regimen; Y83.2 Surgical operation with anastomosis, bypass or graft as the cause of abnormal reaction of the patient, or of later complication, without mention of misadventure at the time of the procedure

== ENCOUNTER 2019-06-20 09:38 | Inpatient (IN) | payer MEDICARE, MEDICAID ==
[~2019-06-20] VITALS: Ht 160 cm; Wt 67.7 kg
[~2019-06-20 09:38] MED LIST changes: +ASPI81TAEC PO; +INSUDET SC; +KETO2SHA9 TOP; +LISI10TA4 PO; +NAPR220C14 PO; +NYST1POW9 TOP; +SANT250O8 TOP; +TRAM50TA2 PO; +TRAZ-163 PO
[2019-06-20 10:50] LABS: BASO # 0.1 10^3/uL (0.0-0.2); BASO % 0.8 % (0.0-1.0); EOS # 0.1 10^3/uL (0.0-0.5); EOS % 0.9 % (0.0-3.0); HEMATOCRIT 35.7 % (42.0-52.0); HEMOGLOBIN 11.3 g/dl (13.5-17.5); LYMPH # 1.2 10^3/uL (1.5-5.0); LYMPH % 12.2 % (24.0-44.0); MEAN CORPUSCULAR HEMOGLOBIN 27.4 pg (27.0-33.0); MEAN CORPUSCULAR HGB CONC 31.7 g/dl (32.0-36.5); MEAN CORPUSCULAR VOLUME 86.4 fl (80.0-96.0); MONO # 0.9 10^3/uL (0.0-0.8); MONO % 9.1 % (0.0-5.0); NEUTROPHILS # 7.4 10^3/uL (1.5-8.5); NEUTROPHILS % 76.6 % (36.0-66.0); PLATELET COUNT, AUTOMATED 303 10^3/uL (150-450); RED BLOOD COUNT 4.13 10^6/uL (4.30-6.10); WHITE BLOOD COUNT 9.7 10^3/uL (4.0-10.0)
[2019-06-20 10:56] LABS: INR 1.12; PROTHROMBIN TIME 14.1 SECONDS (11.8-14.0)
[2019-06-20 10:57] LABS: PARTIAL THROMBOPLASTIN TIME 33.7 SECONDS (25.0-38.4)
[2019-06-20 11:12] LABS: BLOOD UREA NITROGEN 11 MG/DL (7-18); C REACTIVE PROTEIN QUANTITATIV 4.06 MG/DL (0.00-0.30); CALCIUM LEVEL 8.9 MG/DL (8.8-10.2); CARBON DIOXIDE LEVEL 28 MEQ/L (21-32); CHLORIDE LEVEL 106 MEQ/L (98-107); CREATININE FOR GFR 0.87 MG/DL (0.70-1.30); ERYTHROCYTE SEDIMENTATION RATE > 140 mm/hr (0-20); GLOMERULAR FILTRATION RATE > 60.0 (>49); GLUCOSE, FASTING 223 MG/DL (70-100); POTASSIUM SERUM 4.2 MEQ/L (3.5-5.1); SODIUM LEVEL 139 MEQ/L (136-145)
[2019-06-20] MEDS ORDERED: LISI10TA4 PO (12:55)
[2019-06-20] MEDS ORDERED: ASPI-161 PO (12:55)
--- NOTE | 2019-06-20 13:06 | REP ---
Portable chest x-ray: Single view. History: Preop. Comparison chest x-ray: April 04, 2019. Findings: There are surgical clips in the right axillary soft tissues. Degenerative changes are seen in the shoulders. The heart size is normal. The lungs are symmetrically aerated and clear. Pleural angles are sharp. Pulmonary vasculature is not increased. Impression: No acute disease. Surgical clips in the right axillary soft tissues. Electronically Signed by Santiago Chavez MD 06/20/2019 12:58 P
--- NOTE | 2019-06-20 14:14 | CR.PDOC ---
General Date of Consultation: Jun 20, [address] Salmon. HPI: 68year old M with history of chronic wound right foot, peripheral vascular disease status post right profunda to below-knee popliteal bypass 04/11/[address] Salmon. Discharged from [facility] 04/26/19 to [facility] to assist with wound management however the patient apparently signed out 04/30/19. Since that time he has been apparently receiving wound care with visiting nurses and he has continued to follow with Dr. Goodwin for Rt foot wound care. Patient has had continued worsening of his right foot wounds with necrosis and gangrene of his toes and was referred to the emergency department by podiatry for possible amputation. Vascular surgery is consulted Denies any Chest Pain, Shortness of breath, cough, palpitations, abdominal pain, N/V/D or changes in bowel or bladder habits. PAST MEDICAL HISTORY: PAD, s/p bypass grafting Chronic right foot ulceration DM2 Nicotine Dependence HLD PAST SURGICAL HISTORY: H/O Rt Ax-fem, Rt to left Fem-Fem bypass grafting Dr Allyssa Trotter SOCIAL HISTORY: current smoker, approximately 1/2 pack per day. He denies ETOH ROS: As noted in HPI, otherwise 11pt ROS of systems reviewed and unremarkable. PE: GEN: 68yoM, appears unkept. Alert and oriented x 3. HEENT: Normocephalic, atraumatic. Moist mucous membranes. CHEST: Regular rate and rhythm, +S1, +S2 EXT: The right lower extremity has diffuse edema below the knee. There are surgi marcos wounds on the right lower extremity which are healed. There is monophasic signal noted over the distal bypass area. There is a dressing present over the right foot wound with toes exposed with yellow drainage noted, black gangrenous toes. A&P: 1. PAD/chronic wound right foot/status post right profunda to below-knee popliteal bypass 04/11/19. The patient is afebrile. White blood cell count 9.7, hemoglobin 11.3. Heart rate 77, blood pressure 163/67. CRP 4.06, ESR greater than 140. The patient is reviewed by Dr. Salmon. Tentative plan for BKA versus AKA. Antibiotics per hospitalist. The patient was previously followed by infectious disease, Dr. Jolly, possibly consider infectious disease consultation. Vital Signs/I&O Vital Signs Date Time Temp Pulse Resp B/P (MAP) Pulse Ox O2 Delivery O2 Flow Rate FiO2 06/20/19 10:45 77 18 163/67 (99) 99 Room Air 06/20/19 09:38 96.5 Laboratory Data Labs 24H Laboratory Tests 2 06/20/19 10:24: Immature Granulocyte % (Auto) 0.4, Neutrophils (%) (Auto) 76.6H, Lymphocytes (%) (Auto) 12.2L, Monocytes (%) (Auto) 9.1H, Eosinophils (%) (Auto) 0.9, Basophils (%) (Auto) 0.8, Neutrophils # (Auto) 7.4, Lymphocytes # (Auto) 1.2L, Monocytes # (Auto) 0.9H, Eosinophils # (Auto) 0.1, Basophils # (Auto) 0.1, Nucleated Red Blood Cells % (auto) 0.0, Erythrocyte Sedimentation Rate > 140H, Prothrombin Time 14.1H, Prothromb Time International Ratio 1.12, Activated Partial Thromboplast Time 33.7, Anion Gap 5L, Glomerular Filtration Rate > 60.0, Lactic Acid Level 2.3*H, Calcium Level 8.9, C-Reactive Protein, Quantitative 4.06H CBC/BMP Laboratory Tests 06/20/19 10:24 Microbiology Microbiology 06/20/19 Blood Culture, Received Pending 06/20/19 Blood Culture, Received Pending Allergies Coded Allergies: ibuprofen (Verified Allergy, Severe, TROUBLE BREATHING, 04/04/19) strawberry (Verified Allergy, Severe, THROAT SWELLING, 04/04/19) Home Medications Scheduled Aspirin (Aspirin EC) 81 Mg Tablet.dr, 81 MG PO DAILY, (Reported) Atorvastatin Calcium (Atorvastatin Calcium) 80 Mg Tab, 80 MG PO QHS, (Reported) Lisinopril (Lisinopril) 10 Mg Tablet, 10 MG PO DAILY, (Reported) Metformin HCl (Metformin HCl) 1,000 Mg Tab, 1,000 MG PO BIDWM, (Reported) Nystatin (Nystatin Powder) 15 Gm Powder, 1 APLCT TOP DAILY, (Reported) APPLY TO LEFT FOOT Trazodone HCl (Trazodone HCl) 100 Mg Tablet, 100 MG PO QHS, (Reported) Scheduled PRN Ketoconazole (Ketoconazole) 120 Ml Shampoo, 1 DOSE TOP DAILY PRN for INFLAMED SKIN, (Reported) APPLY TO SCALP AND AQUINO Tramadol HCl (Tramadol HCl) 50 Mg Tablet, 50 MG PO DAILY PRN for PAIN, (Reported) Amara Hawkins Jun 20, 2019 14:14
[2019-06-20] MEDS ORDERED: DEXTROSE 50% 50 ML SYRINGE IV PRN (14:45)
[2019-06-20] MEDS ORDERED: SODIUM CHLORIDE 0.9% 1000ML IV STA (14:45)
[2019-06-20] MEDS ORDERED: GLUCAGON FOR INJ 1 MG VIAL (J1610) SC PRN (14:45)
[2019-06-20] MEDS ORDERED: GLUCOSE 4 GM CHEW TABLET PO PRN (14:45)
[2019-06-20 15:09] LABS: ALBUMIN 2.7 GM/DL (3.2-5.2); ALT/SGPT 30 U/L (12-78); BILIRUBIN,DIRECT 0.1 MG/DL (0.0-0.2); BILIRUBIN,TOTAL 0.3 MG/DL (0.2-1.0); TOTAL PROTEIN 6.8 GM/DL (6.4-8.2)
[2019-06-20 15:20] VITALS: BP 167/67
[2019-06-20] MEDS: traMADol 50 MG TAB PO PRN (15:47)
[2019-06-20] MEDS: ASPIRIN 81 MG ENTERIC TAB PO SCH (15:47)
[2019-06-20] MEDS: NS 1,000 ML IV SCH (16:09)
--- NOTE | 2019-06-20 16:25 | HPE ---
DATE OF ADMISSION: 06/20/2019 My preceptor for this encounter is Dr. Mark Torres. Primary care provider was Dr. Choe at the [facility]. It Security Specialist is Dr. Goodwin. CHIEF COMPLAINT: "My right foot is ." HISTORY OF PRESENT ILLNESS: This is a 68-year-old male with a history of peripheral vascular disease who presented to the emergency department today stating that his right foot was . He is normally sees Dr. 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 At that time, he was not mentally prepared for this to happen; however, his discoloration has worsened, and he has noticed his foot has started oozing overnight, so he decided to present to the emergency department today. He states that the problems with his foot began in 1970 when he was in the [email or web address] during [place]. He says that they gave him boots that were too small. Over the subsequent years, he has developed pain in his foot that started a few years ago, which has gotten worse over time. He does take tramadol outpatient but states that it does not work. He has noticed discoloration in the tissues and blackening of the foot over the last month or so. He has also developed tingling that started in the bottom of the foot and has progressed to almost the mid calf above the ankle. He denies fevers or chills, weight changes, or night sweats. He states that his left foot is fine, denies any numbness or tingling in the left lower extremity. He has no issues with his upper extremities either. PAST MEDICAL HISTORY: Peripheral vascular disease. Type 2 diabetes mellitus. History of tobacco use with a 30 pack-year smoking history. Hyperlipidemia. Insomnia. History of stroke times three with the first one at age 47. Most likely some component of post-traumatic stress disorder (PTSD). HOME MEDICATIONS: - aspirin 81 mg daily - lisinopril 10 mg by mouth daily - metformin 1000 mg by mouth twice a day with meals - ketoconazole shampoo daily as needed as for inflammation of the skin - atorvastatin 80 mg by mouth nightly - Nystatin powder 15 grams powder one application topical daily - tramadol 50 mg by mouth daily as needed for pain - trazodone 100 mg by mouth nightly for insomnia. PAST SURGICAL HISTORY: Includes: Tonsillectomy and adenoidectomy as a young child. History of right axilla femoral-femoral bypass and left femoral-femoral bypass. 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 He has traveled to [place] as well as extensively throughout the [place], from [place]. He states that he used to smoke tobacco and has a 30 pack-year smoking history where he rolled his own cigarettes. However, he quit after his last hospitalization. He was a previous heavy drinker and quit drinking about 22 years ago. REVIEW OF SYSTEMS: Constitutional: Denies weight loss, waking, fevers, chills, or night sweats Eyes: Denies visual changes, double vision, blurry vision, floaters, or feeling like a curtain pulled down. Ear nose throat: Denies runny nose, epistaxis, sinus pain, tinnitus, sore throat, or diet aphasia. He is edentulous Cardiovascular: Denies chest pain, shortness of breath, paroxysmal nocturnal dyspnea, orthopnea, edema, or pain palpitations. Respiratory: Denies cough, sputum production, wheezes, hemoptysis, or shortness of breath Gastrointestinal: Denies abdominal pain, difficulty swallowing, loss of appetite, nausea, vomiting, diarrhea, constipation, obstipation, hematemesis, hematochezia, melena, or tenesmus Musculoskeletal: Denies joint swelling, decreased range of motion, crepitus, or no arthritis Integumentary: Denies pruritus, rashes, or lesions. Positive for gangrenous right foot as described above Neuro: Denies any changes to sight/smell/hearing/taste, seizures, faint, headaches. Positive for tingling/pain in the right lower extremity as described above Psychiatric: Denies paranoia, anhedonia, or episodes of ivet. Positive for history of PTSD Endocrine: Denies diarrhea, increased appetite, tremor, palpitations, constipation, dry skin, polydipsia, polyuria, polyphagia Hematologic: Denies any anemia, purpura, or petechiae Lymphatic: Denies any new lumps or bumps anywhere PHYSICAL EXAMINATION: Vital signs: Temperature is 96.5, pulse is 77 and regular, respiratory rate is 18, blood pressure was 163/67. He is 99% on room air. General: This is an unkempt gentleman who appears older than stated age, lying in bed in the stretcher in the emergency department. He seems mildly anxious but is not in any acute distress. HEENT: Atraumatic, normocephalic, he has a full foss which has food in it. He is edentulous. Sclerae are anicteric, and there does not seem to be any conjunctival pallor. Neck: No thyromegaly or masses, supple. Carotid bruits heard bilaterally. Heart: Regular rate and rhythm; no murmurs, gallops or rubs. Lungs: Clear to auscultation bilaterally. No wheezes, rhonchi or rales. Abdomen: Soft, normoactive bowel sounds, nontender to palpation. Back: No costovertebral angle tenderness bilaterally. Vascular: The patient has 2+ radial pulses bilaterally, left posterior tibialis is 2+, as well, as left dorsalis pedis 1+ pulse. Right lower extremity pulses were not palpated. Extremities: The right lower extremity is wrapped in a bandage from the mid calf distally. The toes are seen and are necrotic with yellow exudate and crusting. There is black eschar formation, and the bandages are soaked with a yellow discoloration. The left lower extremity has some trace edema in the distal carver but otherwise there is no clubbing or cyanosis noted. He does have tobacco staining on the first two digits of his left hand. Neurologic: Alert and oriented to himself, where he is, the date and situation. He moves his extremities freely, 5/5 muscle strength is appreciated in the upper extremities bilaterally and in the left lower leg. Sensation is intact throughout except for the right lower extremity, which was not tested due to its severely gangrenous and friable appearance. Cranial nerves II-XII are grossly intact. Psychiatric: Affect is mildly labile, he does seem to fluctuate between being calm and being mildly anxious. No psychomotor disturbances are noted, though he does also seem to have episodic sadness, which is appreciable as well. LABORATORY DATA: CBC: No leukocytosis with a white count of 9.7. He does seem to be mildly anemic with hemoglobin of 11.3 and hematocrit of 35.7. Platelets were normal at 303. His ESR was elevated at greater than 140. ' Chemistry: Electrolytes are in balance with a sodium of 139, potassium of 4.2, chloride of 106, carbon dioxide 28. Renal function is stable with a BUN of 11 and a creatinine of 0.87, calculated GFR is greater than 60%. Glucose was 223. Lactic acid was mildly elevated at 2.3. His liver enzymes were appropriate with a total bilirubin of 0.3, direct bilirubin 0.1, AST 14, ALT 30, alkaline phosphatase 74 and total protein of 6.8. His CRP was elevated at 4.06. Coagulation: PT mildly elevated at 14.1, INR 1.12 and APTT 33.7. Microbiology: Blood cultures times two are pending. IMAGING: Chest x-ray from 06/20/2019 showed no acute disease. Surgical clips were present in the right axillary soft tissues EKG showed sinus rhythm at 73 beats per minute. ASSESSMENT: This is a 68-year-old male with an extensive history of peripheral vascular disease, and a history of a chronic right foot wound who is being admitted for gangrene of the right lower extremity. He will be admitted to the hospital with routine labs and orders. Dr. Salmon has been consulted. PLAN: 1. 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 He is status post right profunda to gveqz-fpw-sybu popliteal bypass in March by Dr. Salmon. He has had continuing worsening of his right foot wounds with necrosis and gangrene of his toes. Dr. Salmon has been consulted and will be evaluating the patient to see whether or not she can save his foot or most likely have to do a [id number]-dbbh amputation. Prior records were reviewed, and he was put on IV Zosyn during his last hospitalization where his wound culture did grow Pseudomonas aeruginosa, Providencia rettgeri, and Corynebacterium species. 2. Lactic acidosis. Lactic acid was elevated at 2.3. This is probably from muscle and tissue of his right foot associated with his gangrene secondary to arterial insufficiency. Will give him a 30 mL per kg bolus of normal saline. 3. Peripheral vascular disease. Continue aspirin. To be evaluated by Dr. Salmon with a potential pggzp-rsz-xyfx amputation to be done tomorrow. 4. Type 2 diabetes mellitus. We will hold his metformin. Most recent A1c done in March was 9. Will start him on Levemir 5 units twice a day with fingersticks morning and night, as well as a consistent-carbohydrate diet. 5. Hypertension. Continue lisinopril, with plans to hold it after midnight in preparation for surgery. 6. Hyperlipidemia. Continue statin. 7. Insomnia. Continue the patient's home trazodone, will reassess after surgery. 8. Deep vein thrombosis (DVT) prophylaxis, Lovenox 40 mg daily. DISPOSITION: The patient will be admitted to medical-surgical as an inpatient as we expect greater than two midnights. I, Mark Torres, have independently examined this patient and performed my own physical exam, as well as reviewed the documentation and edited where necessary. I have discussed in detail with the resident / student the findings and plan of treatment as documented by the resident / student and edited their note. I agree with their findings and treatment plan and have edited their documentation. I will continue to follow the patient during this hospital stay. NOY
--- NOTE | 2019-06-20 16:57 | ECGEPIP ---
[facility] - ED Test Date: 2019-06-20 Pat Name: JORDAN MCKEON Department: Room: - Gender: Male Mounter Smoking Pipe: osbaldo : 1950 Requested By: Mike Kelley Order Number: [id number] Reading MD: Yumiko Caballero Measurements Intervals [place] Rate: 73 P: 54 MA: 138 QRS: 57 QRSD: 92 T: 23 QT: 372 QTc: 411 Interpretive Statements SINUS RHYTHM WITH SINUS ARRHYTHMIA DECREASED RATE 04/04/19 Electronically Signed on 06-20-2019 16:56:54 EST by Yumiko Caballero
[2019-06-20] MEDS: NYSTATIN 100,000 UNITS/GM TOPICAL PWD 15 GM TOP SCH (17:09)
[2019-06-20] MEDS: PIPERACILLIN/TAZOBACTAM SOD 3.375 GM in D5W MINI-BAG PLUS 50 ML IV SCH ×2 (17:09→21:09)
--- NOTE | 2019-06-20 18:23 | IPNPDOC ---
Date Seen The patient was seen on 06/20/19. Progress Note Pt seen and examined. His right foot and ankle have succumb to wet and dry gangrene. We will wrap with betadine soaked gauze. The pt and I discussed a guillotine amputation at the right ankle followed by a right BKA vs AKA depending on the amount of viable tissue below the knee. Risks, benefits and alternatives explained, and he is agreeable to this plan. Informed consent obtained. Vancomycin 1G preop, and NPo after 7am. Ok for light breakfast at 6am if pt is awake since it will be a long day of waiting tomorrow and case may not go until the afternoon. Percocet ordered to help with the pain. VS, I&O, 24H, Fishbone Vital Signs/I&O Vital Signs Date Time Temp Pulse Resp B/P (MAP) Pulse Ox O2 Delivery O2 Flow Rate FiO2 06/20/19 16:17 18 06/20/19 15:20 98.8 90 167/67 (100) 97 Room Air Laboratory Data 24H LABS Laboratory Tests 2 06/20/19 10:24: Immature Granulocyte % (Auto) 0.4, Neutrophils (%) (Auto) 76.6H, Lymphocytes (%) (Auto) 12.2L, Monocytes (%) (Auto) 9.1H, Eosinophils (%) (Auto) 0.9, Basophils (%) (Auto) 0.8, Neutrophils # (Auto) 7.4, Lymphocytes # (Auto) 1.2L, Monocytes # (Auto) 0.9H, Eosinophils # (Auto) 0.1, Basophils # (Auto) 0.1, Nucleated Red Blood Cells % (auto) 0.0, Erythrocyte Sedimentation Rate > 140H, Prothrombin Time 14.1H, Prothromb Time International Ratio 1.12, Activated Partial Thromboplast Time 33.7, Anion Gap 5L, Glomerular Filtration Rate > 60.0, Lactic Acid Level 2.3*H, Calcium Level 8.9, Total Bilirubin 0.3, Direct Bilirubin 0.1, Aspartate Amino Transf (AST/SGOT) 14, Alanine Aminotransferase (ALT/SGPT) 30, Alkaline Phosphatase 74, C-Reactive Protein, Quantitative 4.06H, Total Protein 6.8, Albumin 2.7L, Albumin/Globulin Ratio 0.66L 06/20/19 16:00: Lactic Acid Followup at 4 Hours 1.9 CBC/BMP Laboratory Tests 06/20/19 10:24 Microbiology Microbiology 06/20/19 Blood Culture, Received Pending 06/20/19 Blood Culture, Received Pending RICHY CHILDRESS MD Jun 20, 2019 18:23
[2019-06-20] MEDS: PERCOCET 5MG/325MG TAB PO PRN (18:36)
[2019-06-20] MEDS: ENOXAPARIN 40 MG/0.4 ML SYRINGE (J1650) SC SCH (20:45)
[2019-06-20] MEDS: lisinopriL 10 MG TAB PO SCH (21:08)
[2019-06-20] MEDS: ATORVASTATIN 20 MG TAB PO SCH (21:09)
[2019-06-20] MEDS: LEVEMIR (INSULIN DETEMIR) 1 UNITS/0.01ML SC SCH (21:09)
[2019-06-20] MEDS: traZODone 100 MG TAB PO SCH (21:09)
[2019-06-20 22:00] VITALS: BP 149/71
[2019-06-21] MEDS: PIPERACILLIN/TAZOBACTAM SOD 3.375 GM in D5W MINI-BAG PLUS 50 ML IV SCH ×4 (05:23→22:00)
[2019-06-21 06:00] VITALS: BP 131/78
[2019-06-21] MEDS ORDERED: VANCOMYCIN HCL 1,000 MG, VIAL MATE ADAPTER 1 EACH in D5W 250 ML IV ONE (06:00)
[2019-06-21 06:13] LABS: HEMATOCRIT 30.8 % (42.0-52.0); HEMOGLOBIN 9.7 g/dl (13.5-17.5); MEAN CORPUSCULAR HEMOGLOBIN 27.4 pg (27.0-33.0); MEAN CORPUSCULAR HGB CONC 31.5 g/dl (32.0-36.5); RED BLOOD COUNT 3.54 10^6/uL (4.30-6.10); WHITE BLOOD COUNT 14.1 10^3/uL (4.0-10.0)
[2019-06-21 06:21] LABS: PLATELET COUNT, AUTOMATED 176 10^3/uL (150-450)
[2019-06-21] MEDS: NS 1,000 ML IV SCH ×2 (06:31→16:45)
[2019-06-21 06:36] LABS: BLOOD UREA NITROGEN 13 MG/DL (7-18); CALCIUM LEVEL 8.8 MG/DL (8.8-10.2); CARBON DIOXIDE LEVEL 27 MEQ/L (21-32); CHLORIDE LEVEL 108 MEQ/L (98-107); CREATININE FOR GFR 1.02 MG/DL (0.70-1.30); GLOMERULAR FILTRATION RATE > 60.0 (>49); GLUCOSE, FASTING 137 MG/DL (70-100); POTASSIUM SERUM 3.9 MEQ/L (3.5-5.1); SODIUM LEVEL 141 MEQ/L (136-145)
[2019-06-21] MEDS: LEVEMIR (INSULIN DETEMIR) 1 UNITS/0.01ML SC SCH ×2 (09:00→23:33)
[2019-06-21] MEDS: ASPIRIN 81 MG ENTERIC TAB PO SCH (09:00)
[2019-06-21] MEDS ORDERED: ENOXAPARIN 40 MG/0.4 ML SYRINGE (J1650) SC SCH (09:00)
[2019-06-21] MEDS: NYSTATIN 100,000 UNITS/GM TOPICAL PWD 15 GM TOP SCH (09:18)
--- NOTE | 2019-06-21 10:28 | IPNPDOC ---
Text Note Date of Service The patient was seen on 06/21/19. NOTE SUBJECTIVE: Patient is seen at bedside. He states he was able to sleep overnight. He will be going for a guillotine at the ankle, and then possibly an AKA versus BKA this afternoon with Dr. Salmon. He denies any fevers or chills, shortness of breath, palpitations, chest pain, or worsening lower extremity swelling. He is nothing by mouth until his procedure this afternoon. OBJECTIVE: Vital signs: See below General: This is an unkempt gentleman who appears older than stated age, lying in bed in no acute distress. HEENT: Atraumatic, normocephalic, he has a full foss which has food in it. He is edentulous. Sclerae are anicteric, and there does not seem to be any conjunctival pallor. Neck: No thyromegaly or masses, supple. Carotid bruits heard bilaterally. Heart: Regular rate and rhythm; no murmurs, gallops or rubs. Lungs: Clear to auscultation bilaterally. No wheezes, rhonchi or rales. Abdomen: Soft, normoactive bowel sounds, nontender to palpation. Back: No costovertebral angle tenderness bilaterally. Vascular: The patient has 2+ radial pulses bilaterally, left posterior tibialis is 2+, as well, as left dorsalis pedis 1+ pulse. Right lower extremity pulses were not palpated. Extremities: The right lower extremity is wrapped in a bandage from the mid calf distally. The toes are seen and are necrotic with yellow exudate and crusting. There is black eschar formation, and the bandages are soaked with a yellow discoloration. The left lower extremity has some trace edema in the distal carver but otherwise there is no clubbing or cyanosis noted. He does have tobacco staining on the first two digits of his left hand. Neurologic: 5/5 muscle strength is appreciated in the upper extremities bilaterally and in the left lower leg. Sensation is intact throughout except for the right lower extremity, which was not tested due to its severely gangrenous and friable appearance. Cranial nerves II-XII are grossly intact. Psychiatric: Answers questions appropriately LABORATORY DATA: See below IMAGING: Chest x-ray from 06/20/2019 showed no acute disease. Surgical clips were present in the right axillary soft tissues ASSESSMENT: This is a 68-year-old male with an extensive history of peripheral vascular disease, and a history of a chronic right foot wound who is being admitted for gangrene of the right lower extremity. PLAN: 1. 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 BKA v BARRY with Dr. Salmon this afternoon. Continue IV Zosyn, Pre-Op dose of vancomycin given. 2. Lactic acidosis, resolved. Most likely from muscle and tissue of his right foot associated with his gangrene secondary to arterial insufficiency. S/p 30 mL per kg bolus of normal saline. 3. Peripheral vascular disease. Continue aspirin. AKA v BKA to be done this afternoon. 4. Type 2 diabetes mellitus. Most recent A1c done in March was 9. Continue with Levemir 5 units twice a day with fingersticks morning and night, as well as a consistent-carbohydrate diet. May add sliding scale coverage when he is eating tomorrow. 5. Hypertension. Continue lisinopril 6. Hyperlipidemia. Continue statin. 7. Insomnia. Continue the patient's home trazodone, will reassess after surgery. 8. Deep vein thrombosis (DVT) prophylaxis, Lovenox 40 mg daily. DISPOSITION: Pending surgery VS,Fishbone, I+O VS, Fishbone, I+O Laboratory Tests 06/20/19 10:24 06/21/19 05:13 Vital Signs Date Time Temp Pulse Resp B/P (MAP) Pulse Ox O2 Delivery O2 Flow Rate FiO2 06/21/19 06:00 99.0 91 18 131/78 (95) 98 06/20/19 22:00 Room Air I&O- Last 24 Hours up to 6 AM 06/21/19 06:00 Intake Total 1500 ml Output Total 450 ml Balance 1050 ml GME ATTESTATION GME ATTESTATION My faculty preceptor for this patient encounter was physically present during the encounter and was fully available. All aspects of the patient interview, examination, medical decision making process, and medical care plan development were reviewed and approved by the faculty preceptor. The faculty preceptor is aware and concurs with the plan as stated in the body of this note and will attest to such by his/her cosignature. DANIEL KEANE D.O. Jun 21, 2019 10:27
[2019-06-21] MEDS ORDERED: HumaLOG INSULIN (NovoLOG) PER UNIT SC SCH ×2 (12:00→21:00)
[2019-06-21 14:00] VITALS: BP 128/62
[2019-06-21] MEDS: PERCOCET 5MG/325MG TAB PO PRN (14:26)
--- NOTE | 2019-06-21 16:51 | ECHO ---
DATE OF PROCEDURE: 06/21/2019 REFERRING PHYSICIAN: Mark Torres MD INDICATION: Localized edema. HEIGHT: 160 cm WEIGHT: 68 kg 2D MEASUREMENTS: Ventricular septum: 1.10 cm Posterior wall: 1.20 cm Left ventricle diastole: 4.4 cm Aortic root: 2.9 cm Left atrium: 3.6 cm LVOT: 2.0 cm Left atrial volume index: 20 DOPPLER MEASUREMENTS: No aortic stenosis. No aortic regurgitation. Trace mitral regurgitation. Trace tricuspid regurgitation. No pulmonic regurgitation. Aortic valve velocity: 125 cm/s LVOT velocity: 111 cm/s LVOT VTI: 24.8 cm Mitral E velocity: 66.2 cm/s Mitral A velocity: 79.9 cm/s Pulmonary acceleration time: 108 ms MITRAL ANNULAR TISSUE DOPPLER: E prime lateral: 10.6 cm/s E prime septal: 9.9 cm/s DESCRIPTION: Rhythm was sinus. Image quality was fair. This is a 2D, M-mode, color flow Doppler and pulse wave Doppler examination that included mitral annular tissue Doppler. CONCLUSIONS: 1. Normal left ventricle internal dimensions and wall thickness. Normal regional left ventricle (LV) wall motion and wall thickening. Normal LV systolic function. Left ventricular ejection fraction (LVEF) 60% (3D). Normal LV diastolic function for age. 2. Mild aortic valve sclerosis of a three-cuspid aortic valve. No aortic regurgitation. 3. No pericardial effusion. 4. Difficult visualization of the inferior vena cava. Difficult to assess estimate of central venous pressure. 5. Otherwise normal appearing echocardiogram Doppler findings.
--- NOTE | 2019-06-21 20:53 | IPNPDOC ---
Date Seen The patient was seen on 06/21/19. Progress Note Patient seen and examined. Plan is the same as yesterday, for a right guillotine amputation at the ankle. We will plan to come back at a later date once the infection has cleared and the swelling has subsided to see if we could possibly convert this into a below-knee amputation, with the fallback that we may have to do it and above-knee amputation. Risks benefits and alternatives were explained to the patient yesterday and informed consent was obtained. We'll proceed to OR directly. VS, I&O, 24H, Fishbone Vital Signs/I&O Vital Signs Date Time Temp Pulse Resp B/P (MAP) Pulse Ox O2 Delivery O2 Flow Rate FiO2 06/21/19 15:13 18 Room Air 06/21/19 14:00 98.4 71 128/62 (84) 97 I&O- Last 24 Hours up to 6 AM 06/21/19 06:00 Intake Total 1500 ml Output Total 450 ml Balance 1050 ml Laboratory Data 24H LABS Laboratory Tests 2 06/20/19 20:59: Bedside Glucose (Misc Panel) 261H 06/21/19 05:13: Nucleated Red Blood Cells % (auto) 0.0, Anion Gap 6L, Glomerular Filtration Rate > 60.0, Calcium Level 8.8 06/21/19 11:46: Bedside Glucose (Misc Panel) 125H 06/21/19 16:50: Bedside Glucose (Misc Panel) 122H CBC/BMP Laboratory Tests 06/21/19 05:13 Microbiology Microbiology 06/20/19 Blood Culture - Preliminary, Resulted No growth after 24 hours . All specim... 06/20/19 Blood Culture - Preliminary, Resulted No growth after 24 hours . All specim... RICHY CHILDRESS MD Jun 21, 2019 20:53
[2019-06-21] MEDS ORDERED: ONDANSETRON 4MG/2ML VIAL (J2405) As Ordered ONE (20:58)
[2019-06-21] MEDS ORDERED: MIDAZOLAM INJ 2 MG/2 ML VIAL (J2250) As Ordered ONE (20:58)
[2019-06-21] MEDS ORDERED: LIDOCAINE 2% INJ 100 MG/5 ML SDV (FOR ANES.) As Ordered ONE (20:58)
[2019-06-21] MEDS ORDERED: PROPOFOL 200 MG/20 ML VIAL As Ordered ONE (20:58)
[2019-06-21] MEDS ORDERED: dexameTHASONE 4 MG/ML 1ML VIAL (J1100) As Ordered ONE (20:58)
[2019-06-21] MEDS ORDERED: fentaNYL 100 MCG/2 ML INJECTION (J3010) As Ordered ONE (20:58)
[2019-06-21] MEDS ORDERED: METOCLOPRAMIDE INJ 10MG/2ML VIAL (J2765) As Ordered ONE (20:58)
[2019-06-21] MEDS: ENOXAPARIN 40 MG/0.4 ML SYRINGE (J1650) SC SCH (21:00)
[2019-06-21] MEDS ORDERED: ZOSYN 3.375 GM VIAL (J2543) As Ordered ONE (21:07)
[2019-06-21] MEDS ORDERED: EPINEPHrine 1MG/ML INJ 30ML MD-VIAL As Ordered ONE (21:13)
[2019-06-21] MEDS ORDERED: ePHEDrine SULFATE 25 MG/5 ML(5MG/ML) SYRINGE As Ordered ONE (21:20)
[2019-06-21] MEDS ORDERED: diazePAM 5 MG TAB PO PRN (21:45)
--- NOTE | 2019-06-21 21:48 | ROOPDOC ---
[facility] Report Of Operation Report of Operation DATE OF PROCEDURE: 06/21/19 PREPROCEDURE DIAGNOSES: Wet and dry gangrene right foot and ankle POSTPROCEDURE DIAGNOSES: Same PROCEDURE: Right ankle guillotine amputation SURGEON: Richy Salmon MD ANESTHESIA: Gen. anesthesia and local INDICATION FOR PROCEDURE: Mr. Khoury is a very pleasant 68-year-old gentleman who underwent a right lower extremity bypass and extensive debridements and wound care with podiatry, and was discharged to a custodial but left AMA. While the patient was home by himself, his extensive foot wounds were mostly unattended. This led to worsening infection and gangrene of the foot. Eventually, the patient was admitted through the emergency room for surgical management of his foot and ankle. I had a lengthy discussion with the patient last night about options. I felt the best option was to try a guillotine amputation and see if there might be enough tissue salvageable to allow him to have a below-knee amputation. It is still possible we will not have enough suitable tissue and need to convert to an above-knee amputation, but this will also benefit from a guillotine amputation and removal of the infected tissue prior to final amputation and closure. Risks benefits and alternatives to right guillotine amputation work splint the patient he was agreeable to proceed. Informed consent was obtained. REPORT OF OPERATION: The patient was brought to the OR in stable condition and general anesthesia and antibiotics were administered without compensation. His right lower extremity was prepped and draped in sterile fashion. A timeout was performed. His foot and calf were exsanguinated and tourniquet was inflated to 250 mmHg. An incision was made at the most distal extent of viable skin and all gangrenous skin was removed at the ankle. Bovie cautery was used to dissect down to the tibia and fibula and these bones were transected with the bone saw. Bovie cautery was used to complete the amputation on the posterior aspect of the leg and the foot was sent for pathology. The tourniquet was released and bleeding vessels were suture ligated. Bone wax was placed into the tibia for hemostasis. Once hemostasis was achieved, Betadine soaked gauze was placed over the distal stump. This was covered with dry gauze, Kerlix, and Coban. The patient was then extubated and taken to recovery in stable condition. SPECIMEN: Right foot and ankle sent for pathology ESTIMATED BLOOD LOSS: Approximately 25 mL. COMPLICATIONS: None. PLAN: We will see how the patient does over the next few days. If enough tissue is salvageable after her infection clears, we may still be able to salvage him to a below-knee amputation. However, it is possible he will still need an above- knee amputation as a final solution to his severe gangrene infection. Continue Betadine dressings daily. Analgesia as necessary. Encourage high-protein diet to help with healing. RICHY SALMON MD Jun 21, 2019 21:47
[2019-06-21] MEDS ORDERED: fentaNYL 100 MCG/2 ML INJECTION (J3010) IV PRN (22:15)
[2019-06-21] MEDS ORDERED: HYDROMORPHONE HCL 0.5 MG/ 0.5 ML SYRINGE (J1170 PER 1) IV PRN (22:15)
[2019-06-21] MEDS ORDERED: LR 1,000 ML IV SCH (22:15)
[2019-06-21] MEDS ORDERED: METOCLOPRAMIDE INJ 10MG/2ML VIAL (J2765) IV PRN (22:15)
[2019-06-21] MEDS ORDERED: PERCOCET 5MG/325MG TAB PO PRN (22:15)
[2019-06-21] MEDS ORDERED: ONDANSETRON 4MG/2ML VIAL (J2405) IV PRN (22:15)
[2019-06-21 22:30] VITALS: BP 118/58
[2019-06-21 23:00] VITALS: BP 127/53
[2019-06-21] MEDS: traZODone 100 MG TAB PO SCH (23:30)
[2019-06-21] MEDS: ATORVASTATIN 20 MG TAB PO SCH (23:30)
[2019-06-21] MEDS: lisinopriL 10 MG TAB PO SCH (23:31)
[2019-06-22] VITALS (9 sets, daily range): BP systolic 113–154; BP diastolic 54–77
[2019-06-22 02:33] LABS: HEMATOCRIT 30.3 % (42.0-52.0); HEMOGLOBIN 9.4 g/dl (13.5-17.5); MEAN CORPUSCULAR HEMOGLOBIN 26.9 pg (27.0-33.0); MEAN CORPUSCULAR VOLUME 86.6 fl (80.0-96.0); PLATELET COUNT, AUTOMATED 156 10^3/uL (150-450); WHITE BLOOD COUNT 9.6 10^3/uL (4.0-10.0)
[2019-06-22] MEDS: PIPERACILLIN/TAZOBACTAM SOD 3.375 GM in D5W MINI-BAG PLUS 50 ML IV SCH ×4 (04:28→21:21)
[2019-06-22] MEDS: NS 1,000 ML IV SCH ×2 (06:30→20:32)
[2019-06-22 07:30] LABS: HEMATOCRIT 30.8 % (42.0-52.0); HEMOGLOBIN 9.7 g/dl (13.5-17.5); MEAN CORPUSCULAR HEMOGLOBIN 27.1 pg (27.0-33.0); MEAN CORPUSCULAR HGB CONC 31.5 g/dl (32.0-36.5); PLATELET COUNT, AUTOMATED 177 10^3/uL (150-450); RED BLOOD COUNT 3.58 10^6/uL (4.30-6.10); WHITE BLOOD COUNT 8.3 10^3/uL (4.0-10.0)
[2019-06-22 08:11] LABS: BLOOD UREA NITROGEN 15 MG/DL (7-18); CALCIUM LEVEL 8.5 MG/DL (8.8-10.2); CARBON DIOXIDE LEVEL 24 MEQ/L (21-32); CHLORIDE LEVEL 109 MEQ/L (98-107); CREATININE FOR GFR 0.98 MG/DL (0.70-1.30); GLOMERULAR FILTRATION RATE > 60.0 (>49); GLUCOSE, FASTING 291 MG/DL (70-100); POTASSIUM SERUM 4.5 MEQ/L (3.5-5.1); SODIUM LEVEL 141 MEQ/L (136-145)
[2019-06-22] MEDS: LEVEMIR (INSULIN DETEMIR) 1 UNITS/0.01ML SC SCH ×2 (08:19→20:31)
[2019-06-22] MEDS: ASPIRIN 81 MG ENTERIC TAB PO SCH (08:19)
[2019-06-22] MEDS: NYSTATIN 100,000 UNITS/GM TOPICAL PWD 15 GM TOP SCH (08:20)
[2019-06-22] MEDS: HumaLOG INSULIN (NovoLOG) PER UNIT SC SCH ×4 (08:20→20:30)
--- NOTE | 2019-06-22 08:49 | IPNPDOC ---
Text Note Date of Service The patient was seen on 06/22/19. NOTE Vascular surgery. Dr. Salmon The patient is a 68-year-old male with history of PAD POD 1 right ankle guillotine amputation 06/21/[address] Salmon. The patient is currently resting in bed. He states pain has been reasonably controlled. Dressing remains intact over the right lower extremity. The patient remains afebrile. White blood cell count 8.3, hemoglobin 9.7. The patient's wound is examined with Dr. Salmon. No bleeding. No drainage. Swelling of the right lower extremity is improved. No warmth or erythema. Dressing is replaced with Xeroform, gauze soaked with Betadine, dry gauze, Kerlix and Coban. Continue with dressing changes.. Continue broad-spectrum antibiotics. Continue pain control Continue with elevation of right lower extremity Tentative plan for completion BKA later this week. Continue to encourage eye protein diet to facilitate healing. Continue to closely monitor. VS,Fishbone, I+O VS, Fishbone, I+O Laboratory Tests 06/22/19 02:27 06/22/19 07:02 Vital Signs Date Time Temp Pulse Resp B/P (MAP) Pulse Ox O2 Delivery O2 Flow Rate FiO2 06/22/19 06:00 98.4 83 20 129/77 (94) 96 Room Air 06/21/19 21:53 3 I&O- Last 24 Hours up to 6 AM 06/22/19 06:00 Intake Total 1740 ml Output Total 1045 ml Balance 695 ml Amara Hawkins Jun 22, 2019 08:49
--- NOTE | 2019-06-22 09:50 | IPNPDOC ---
Text Note Date of Service The patient was seen on 06/22/19. NOTE SUBJECTIVE: Patient is seen at bedside. He states he was able to sleep overnight and his pain is pretty well controlled. He is postop day #1, status post guillotine at the ankle with Dr. Salmon (she is considering AKA versus BKA when his infection has improved). He denies any fevers or chills, shortness of breath, palpitations, chest pain, or worsening lower extremity swelling. He was able to eat breakfast. OBJECTIVE: Vital signs: See below General: This is an unkempt gentleman who appears older than stated age, lying in bed in no acute distress, eating breakfast HEENT: Atraumatic, normocephalic, he has a full foss. He is edentulous. Sclerae are anicteric, and there does not seem to be any conjunctival pallor. Neck: No thyromegaly or masses, supple. Carotid bruits heard bilaterally. Heart: Regular rate and rhythm; no murmurs, gallops or rubs. Lungs: Clear to auscultation bilaterally. No wheezes, rhonchi or rales. Abdomen: Soft, normoactive bowel sounds, nontender to palpation. Back: No costovertebral angle tenderness bilaterally. Vascular: The patient has 2+ radial pulses bilaterally, left posterior tibialis is 2+, as well, as left dorsalis pedis 1+ pulse. Right lower extremity pulses were not palpated. Extremities: The right foot is surgically absent and the right lower extremity is wrapped in a dressing/bandage that is dry and intact. The left lower extremity has some trace edema in the distal carver but otherwise there is no club dane or cyanosis noted. Neurologic: Sensation is intact throughout except for the right lower ext remity, Cranial nerves II-XII are grossly intact. Psychiatric: Answers questions appropriately LABORATORY DATA: See below IMAGING: Chest x-ray from 06/20/2019 showed no acute disease. Surgical clips were present in the right axillary soft tissues ASSESSMENT: This is a 68-year-old male with an extensive history of peripheral vascular disease, and a history of a chronic right foot wound who is being admitted for gangrene of the right lower extremity. Postop day #1, antibiotics day #3. PLAN: 1. 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 Postoperative day #1 status post guillotine at the ankle with Dr. Salmon 06/21/19. She is considering AKA versus BKA when his infection has improved. Continue IV Zosyn. Pain control per surgery. 2. Lactic acidosis, resolved. Most likely from muscle and tissue of his right foot associated with his gangrene secondary to arterial insufficiency. S/p 30 mL per kg bolus of normal saline. 3. Peripheral vascular disease. Continue aspirin. 4. Type 2 diabetes mellitus. Most recent A1c done in March was 9. Continue with Levemir 5 units twice a day with fingersticks morning and night, as well as a consistent-carbohydrate diet. Sliding scale coverage. 5. Hypertension. Continue lisinopril 6. Hyperlipidemia. Continue statin. 7. Insomnia. Continue the patient's home trazodone, will reassess after surgery, he also has Valium ordered for pain/muscle spasm/anxiety by surgery. 8. Deep vein thrombosis (DVT) prophylaxis, Lovenox 40 mg daily. DISPOSITION: Pending surgery, potential AKA versus BKA, will most likely need subacute rehabilitation. VS,Fishbone, I+O VS, Fishbone, I+O Laboratory Tests 06/22/19 02:27 06/22/19 07:02 Vital Signs Date Time Temp Pulse Resp B/P (MAP) Pulse Ox O2 Delivery O2 Flow Rate FiO2 06/22/19 06:00 98.4 83 20 129/77 (94) 96 Room Air 06/21/19 21:53 3 I&O- Last 24 Hours up to 6 AM 06/22/19 06:00 Intake Total 1740 ml Output Total 1045 ml Balance 695 ml GME ATTESTATION GME ATTESTATION My faculty preceptor for this patient encounter was physically present during the encounter and was fully available. All aspects of the patient interview, examination, medical decision making process, and medical care plan development were reviewed and approved by the faculty preceptor. The faculty preceptor is aware and concurs with the plan as stated in the body of this note and will attest to such by his/her cosignature. DANIEL KEANE D.O. Jun 22, 2019 09:50
[2019-06-22] MEDS: PERCOCET 5MG/325MG TAB PO PRN ×2 (09:55→16:36)
[2019-06-22] MEDS: ATORVASTATIN 20 MG TAB PO SCH (20:30)
[2019-06-22] MEDS: traZODone 100 MG TAB PO SCH (20:30)
[2019-06-22] MEDS: lisinopriL 10 MG TAB PO SCH (20:31)
[2019-06-22] MEDS ORDERED: ENOXAPARIN 40 MG/0.4 ML SYRINGE (J1650) SC SCH (21:00)
[2019-06-23] MEDS: PIPERACILLIN/TAZOBACTAM SOD 3.375 GM in D5W MINI-BAG PLUS 50 ML IV SCH ×4 (04:25→22:19)
[2019-06-23] MEDS: PERCOCET 5MG/325MG TAB PO PRN (04:26)
[2019-06-23 06:00] VITALS: BP 156/64
[2019-06-23 06:14] LABS: HEMATOCRIT 27.4 % (42.0-52.0); HEMOGLOBIN 8.8 g/dl (13.5-17.5); MEAN CORPUSCULAR HEMOGLOBIN 27.3 pg (27.0-33.0); MEAN CORPUSCULAR HGB CONC 32.1 g/dl (32.0-36.5); MEAN CORPUSCULAR VOLUME 85.1 fl (80.0-96.0); PLATELET COUNT, AUTOMATED 208 10^3/uL (150-450); RED BLOOD COUNT 3.22 10^6/uL (4.30-6.10); WHITE BLOOD COUNT 8.2 10^3/uL (4.0-10.0)
[2019-06-23 06:48] LABS: BLOOD UREA NITROGEN 14 MG/DL (7-18); CALCIUM LEVEL 7.9 MG/DL (8.8-10.2); CARBON DIOXIDE LEVEL 23 MEQ/L (21-32); CHLORIDE LEVEL 112 MEQ/L (98-107); GLOMERULAR FILTRATION RATE > 60.0 (>49); GLUCOSE, FASTING 144 MG/DL (70-100); POTASSIUM SERUM 3.5 MEQ/L (3.5-5.1); SODIUM LEVEL 144 MEQ/L (136-145)
--- NOTE | 2019-06-23 07:20 | IPNPDOC ---
Text Note Date of Service The patient was seen on 06/23/19. NOTE SUBJECTIVE: Patient is seen at bedside. He states he was able to sleep overnight and his pain is well controlled. He is postop day #2, status post guillotine at the ankle with Dr. Salmon (she is considering AKA versus BKA tomorrow afternoon tentatively). He denies any fevers or chills, shortness of breath, palpitations, chest pain, or worsening lower extremity swelling. He denies loose stools. OBJECTIVE: Vital signs: See below General: This is an unkempt gentleman who appears older than stated age, lying in bed in no acute distress HEENT: Atraumatic, normocephalic, he has a full fsos. He is edentulous. Sclerae are anicteric, and there does not seem to be any conjunctival pallor. Neck: No thyromegaly or masses, supple. Carotid bruits heard bilaterally. Heart: Regular rate and rhythm; no murmurs, gallops or rubs. Lungs: Clear to auscultation bilaterally. No wheezes, rhonchi or rales. Abdomen: Soft, normoactive bowel sounds, nontender to palpation. Back: No costovertebral angle tenderness bilaterally. Extremities: The right foot is surgically absent and the right lower extremity is wrapped in a dressing/bandage that is dry and intact. The left lower extremity has some trace edema in the distal carver but otherwise there is no clubbing or cyanosis noted. Neurologic: Sensation is intact throughout except for the right lower extremity, Cranial nerves II-XII are grossly intact. Psychiatric: Answers questions appropriately LABORATORY DATA: See below IMAGING: Chest x-ray from 06/20/2019 showed no acute disease. Surgical clips were present in the right axillary soft tissues ASSESSMENT: This is a 68-year-old male with an extensive history of peripheral vascular disease, and a history of a chronic right foot wound who is being admitted for gangrene of the right lower extremity. Postop day #2, antibiotics day #4. PLAN: 1. 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 Postoperative day #2 status post guillotine at the ankle with Dr. Salmon 06/21/19. She is considering AKA versus BKA tentatively for tomorrow afternoon. Continue IV Zosyn. Pain control per surgery. Antibiotics day #4 with IV Zosyn. Per Dr. Viky Maloney's PA, the surgical wound under the dressing looks better than expected and there is not much drainage. 2. Lactic acidosis, resolved. Most likely from muscle and tissue of his right foot associated with his gangrene secondary to arterial insufficiency. S/p 30 mL per kg bolus of normal saline. 3. Peripheral vascular disease. Continue aspirin. 4. Type 2 diabetes mellitus. Most recent A1c done in March was 9. Continue with Levemir 8 units twice a day with fingersticks morning and night, as well as a consistent-carbohydrate diet. Sliding scale coverage. 5. Hypertension. Continue lisinopril 6. Hyperlipidemia. Continue statin. 7. Insomnia. Continue the patient's home trazodone, will reassess after surgery, he also has Valium ordered for pain/muscle spasm/anxiety by surgery. 8. Deep vein thrombosis (DVT) prophylaxis. Hemoglobin has been declining, will hold Lovenox 40 mg daily. DISPOSITION: Pending surgery, potential AKA versus BKA, will most likely need subacute rehabilitation. VS,Fishbone, I+O VS, Fishbone, I+O Laboratory Tests 06/23/19 05:33 Vital Signs Date Time Temp Pulse Resp B/P (MAP) Pulse Ox O2 Delivery O2 Flow Rate FiO2 06/23/19 06:00 97.0 62 18 156/64 (94) 96 06/22/19 18:00 Room Air 06/21/19 21:53 3 I&O- Last 24 Hours up to 6 AM 06/23/19 06:00 Intake Total 2430 ml Output Total 850 ml Balance 1580 ml GME ATTESTATION GME ATTESTATION My faculty preceptor for this patient encounter was physically present during the encounter and was fully available. All aspects of the patient interview, examination, medical decision making process, and medical care plan development were reviewed and approved by the faculty preceptor. The faculty preceptor is aware and concurs with the plan as stated in the body of this note and will attest to such by his/her cosignature. DANIEL KEANE D.O. Jun 23, 2019 07:20
[2019-06-23] MEDS: ASPIRIN 81 MG ENTERIC TAB PO SCH (08:09)
[2019-06-23] MEDS: LEVEMIR (INSULIN DETEMIR) 1 UNITS/0.01ML SC SCH ×2 (08:14→22:19)
[2019-06-23] MEDS: oxyCODONE 5MG TAB PO PRN ×3 (08:14→18:03)
[2019-06-23] MEDS: HumaLOG INSULIN (NovoLOG) PER UNIT SC SCH ×4 (08:14→21:00)
--- NOTE | 2019-06-23 09:17 | IPNPDOC ---
Text Note Date of Service The patient was seen on 06/23/19. NOTE Vascular surgery. Dr. Salmon The patient is a 68-year-old male with history of PAD POD 2 right ankle guillotine amputation 06/21/[address] Salmon. The patient is currently resting in bed. He is complaining of pain currently, he is receiving pain medication. Dressing remains intact over the right lower extremity. The patient remains afebrile. White blood cell count 8.2, hemoglobin 8.8. The patient's dressing is in place currently with Xeroform, gauze soaked with Betadine, dry gauze, Kerlix and Coban. Will return later to change the patient's dressing as he is complaining of pain currently. Continue with dressing changes. Dressing changes postpone this morning as the patient is in a fair amount of pain and is taking oxycodone currently for his breakthrough pain. Will return after analgesia administration to change his dressing. Continue broad-spectrum antibiotics. Continue pain control. Currently the patient remains on Percocet 2 tabs every 4 as needed however nursing states this does not seem to be lasting 4hours. Oxycodone is ordered for breakthrough pain and the patient is receiving this this morning. Nursing states the patient had lethargy with Valium 5 mg, will reduce the dose to 2.5 mg every 8 hours as needed and continue to closely monitor for any lethargy or side effects. Continue with elevation of right lower extremity Tentative plan for completion BKA 06/24/19. Continue to encourage eye protein diet to facilitate healing. Continue to closely monitor. Addendum: Pt seen and examined later in the day and consented for surgery, R BKA vs AKA depending on tissue viability. His stump edema is significantly improved, and clean. No new infection noted. Dressing replaced. Site marked. Richy Salmon MD VS,Percy I+O VSPercy I+O Laboratory Tests 06/23/19 05:33 Vital Signs Date Time Temp Pulse Resp B/P (MAP) Pulse Ox O2 Delivery O2 Flow Rate FiO2 06/23/19 08:14 20 06/23/19 06:00 97.0 62 156/64 (94) 96 06/22/19 18:00 Room Air 06/21/19 21:53 3 I&O- Last 24 Hours up to 6 AM 06/23/19 06:00 Intake Total 2430 ml Output Total 850 ml Balance 1580 ml Amara Hawkins Jun 23, 2019 09:17 RICHY SALMON MD Jun 24, 2019 10:11
[2019-06-23] MEDS: NYSTATIN 100,000 UNITS/GM TOPICAL PWD 15 GM TOP SCH (09:40)
[2019-06-23] MEDS: NS 1,000 ML IV SCH ×2 (10:39→22:17)
[2019-06-23 14:00] VITALS: BP 158/71
[2019-06-23] MEDS: diazePAM 5 MG TAB PO PRN (19:40)
[2019-06-23 22:00] VITALS: BP 169/68
[2019-06-23] MEDS: lisinopriL 10 MG TAB PO SCH (22:18)
[2019-06-23] MEDS: traZODone 100 MG TAB PO SCH (22:18)
[2019-06-23] MEDS: ATORVASTATIN 20 MG TAB PO SCH (22:18)
[2019-06-24] VITALS (9 sets, daily range): BP systolic 133–171; BP diastolic 58–75
[2019-06-24 00:12] LABS: HEMATOCRIT 30.9 % (42.0-52.0); HEMOGLOBIN 9.6 g/dl (13.5-17.5)
[2019-06-24] MEDS: PIPERACILLIN/TAZOBACTAM SOD 3.375 GM in D5W MINI-BAG PLUS 50 ML IV SCH ×4 (03:59→22:00)
[2019-06-24 06:14] LABS: HEMATOCRIT 30.1 % (42.0-52.0); HEMOGLOBIN 9.5 g/dl (13.5-17.5); MEAN CORPUSCULAR HEMOGLOBIN 26.7 pg (27.0-33.0); MEAN CORPUSCULAR HGB CONC 31.6 g/dl (32.0-36.5); MEAN CORPUSCULAR VOLUME 84.6 fl (80.0-96.0); PLATELET COUNT, AUTOMATED 253 10^3/uL (150-450); RED BLOOD COUNT 3.56 10^6/uL (4.30-6.10); WHITE BLOOD COUNT 9.2 10^3/uL (4.0-10.0)
[2019-06-24 06:40] LABS: BLOOD UREA NITROGEN 11 MG/DL (7-18); CALCIUM LEVEL 8.1 MG/DL (8.8-10.2); CARBON DIOXIDE LEVEL 25 MEQ/L (21-32); CHLORIDE LEVEL 110 MEQ/L (98-107); CREATININE FOR GFR 0.83 MG/DL (0.70-1.30); GLOMERULAR FILTRATION RATE > 60.0 (>49); GLUCOSE, FASTING 132 MG/DL (70-100); POTASSIUM SERUM 3.5 MEQ/L (3.5-5.1); SODIUM LEVEL 142 MEQ/L (136-145)
[2019-06-24] MEDS: HumaLOG INSULIN (NovoLOG) PER UNIT SC SCH ×4 (07:30→22:00)
[2019-06-24] MEDS: diazePAM 5 MG TAB PO PRN (07:47)
[2019-06-24] MEDS ORDERED: LIDOCAINE W/EPINEPHRINE 1% 20ML VIAL As Ordered ONE (09:01)
[2019-06-24] MEDS ORDERED: fentaNYL 100 MCG/2 ML INJECTION (J3010) As Ordered ONE ×3 (09:21→11:53)
[2019-06-24] MEDS ORDERED: MIDAZOLAM INJ 2 MG/2 ML VIAL (J2250) As Ordered ONE ×2 (09:21→10:36)
[2019-06-24] MEDS ORDERED: ZOSYN 3.375 GM VIAL (J2543) As Ordered ONE (09:28)
--- NOTE | 2019-06-24 10:01 | IPNPDOC ---
Date Seen The patient was seen on 06/24/19. Progress Note Pt seen and examined. We will proceed today for planned second stage RLE amputation, BKA vs AKA depending on distal tissue viability. Risks benefits and alternatives explained to the patient yesterday and informed consent obtained, and this morning he is ready to go and no new questions. He was NPo since midnight. Will proceed to OR. VS, I&O, 24H, Fishbone Vital Signs/I&O Vital Signs Date Time Temp Pulse Resp B/P (MAP) Pulse Ox O2 Delivery O2 Flow Rate FiO2 06/24/19 09:00 97.9 67 18 133/75 (94) 96 06/22/19 18:00 Room Air 06/21/19 21:53 3 I&O- Last 24 Hours up to 6 AM 06/24/19 05:59 Intake Total 2240 ml Output Total 2190 ml Balance 50 ml Laboratory Data 24H LABS Laboratory Tests 2 06/23/19 13:00: Bedside Glucose (Misc Panel) 196H 06/23/19 16:58: Bedside Glucose (Misc Panel) 125H 06/23/19 20:14: Bedside Glucose (Misc Panel) 140H 06/24/19 05:29: Nucleated Red Blood Cells % (auto) 0.0, Anion Gap 7L, Glomerular Filtration Rate > 60.0, Calcium Level 8.1L 06/24/19 06:06: Bedside Glucose (Misc Panel) 131H CBC/BMP Laboratory Tests 06/24/19 00:00 06/24/19 05:29 Microbiology Microbiology 06/20/19 Blood Culture - Preliminary, Resulted No Growth after 72 hours. All specime... 06/20/19 Blood Culture - Preliminary, Resulted No Growth after 72 hours. All specime... RICHY CHILDRESS MD Jun 24, 2019 10:01
[2019-06-24] MEDS ORDERED: fentaNYL 100 MCG/2 ML INJECTION (J3010) IV ONE (10:15)
[2019-06-24] MEDS ORDERED: MIDAZOLAM INJ 2 MG/2 ML VIAL (J2250) IV ONE (10:15)
[2019-06-24] MEDS ORDERED: ROCURONIUM BROMIDE 50 MG/5 ML VIAL As Ordered ONE (10:36)
[2019-06-24] MEDS ORDERED: LIDOCAINE 2% INJ 100 MG/5 ML SDV (FOR ANES.) As Ordered ONE (10:36)
[2019-06-24] MEDS ORDERED: PROPOFOL 200 MG/20 ML VIAL As Ordered ONE (10:36)
[2019-06-24] MEDS ORDERED: dexameTHASONE 4 MG/ML 1ML VIAL (J1100) As Ordered ONE (10:44)
[2019-06-24] MEDS ORDERED: SUGAMMADEX SODIUM 500 MG/5 ML VIAL (BRIDION) As Ordered ONE (10:52)
[2019-06-24] MEDS ORDERED: ONDANSETRON 4MG/2ML VIAL (J2405) As Ordered ONE (10:52)
[2019-06-24] MEDS ORDERED: ePHEDrine SULFATE 25 MG/5 ML(5MG/ML) SYRINGE As Ordered ONE (11:00)
[2019-06-24] MEDS ORDERED: dexameTHASONE 10 MG/1 ML VIAL PRES.FREE (J1100) ONE (11:20)
[2019-06-24] MEDS ORDERED: ROPIvacaine 0.5% 30 ML INJECTION (J2795 PER 1MG) ONE (11:20)
[2019-06-24] MEDS ORDERED: ACETAMINOPHEN 1000MG 100ML IV BTL (OFIRMEV) (J0131 PER 10MG) As Ordered ONE (11:33)
--- NOTE | 2019-06-24 12:16 | ROOPDOC ---
[facility] Report Of Operation Report of Operation DATE OF PROCEDURE: 06/24/19 PREPROCEDURE DIAGNOSES: Right lower extremity gangrene of the foot and ankle status post guillotine amputation. POSTPROCEDURE DIAGNOSES: Same. PROCEDURE: Planned completion amputation: right above-knee amputation. SURGEON: Richy Salmon MD ANESTHESIA: Gen. anesthesia and right lower extremity nerve block and local anesthesia INDICATION FOR PROCEDURE: Mr. Khoury is a very pleasant 68-year-old gentleman with a history of severe right foot and ankle wounds status post a right lower extremity profunda to the low knee popliteal bypass with in situ vein and IV antibiotics and podiatry wound care, who signed himself out AMA from his skilled nursing and subsequently had significant deterioration of his right lower extremity wounds. Eventually, the patient was willing to come to the emergency room and be admitted for intervention. We took him for a right guillotine amputation to remove the wet and dry gangrene from the right foot and allow the swelling to subside and see if we had enough healthy tissue and muscle for a below-knee amputation. I did discuss with the patient that if intraoperatively the skin or muscle did not appear viable, we would need to do an above-knee amputation. A below-knee amputation requires a long posterior flap and sufficient healthy scan to allow for healing. Without that, we most certainly would be back to do an above-knee amputation within a few weeks. The patient understood and all questions were answered. He was agreeable to proceed and informed consent was obtained. REPORT OF OPERATION: The patient was brought to the OR in stable condition after a lip right lower extremity nerve block was placed by our anesthesia colleagues in preop holding. General anesthesia and antibiotics were administered without collocation. His right lower extremity was prepped and draped in a sterile fashion. A timeout was performed. The leg was exsanguinated and a tourniquet was inflated to 250 mmHg. A fishmouth incision was made at the distal thigh with a long posterior flap and carried down through the subcutaneous tissue with Bovie cautery. We continued or dissection through the muscle and fascia down to the femur which was skeletonized proximally within the incision. A lap pad was placed around the femur and used to elevate the periosteal tissue. The femur was transected high within the incision and the posterior flap was completed with Bovie cautery after suture ligating the popliteal artery and popliteal vein. The bypass was also suture ligated and divided. We then sent to like for pathology. Nerve structures were high ligated and perineural tissue was injected with local anesthesia. Visible veins were ligated. The tourniquet was released. Bovie ca utery was used for additional hemostasis. The wound was copiously irrigated with saline. A rasp was used to smooth the edges of the bone and a drill was used to create osteotomies at 2:00 and 10:00. The posterior muscle was attached to the bone with 2-0 Vicryl suture. We again irrigated and on the fascia was closed with figure of 8 2-0 Vicryl sutures. The skin was closed with nylon mattress sutures and greg. Xeroform fluffs and kerlix were used to dress the wound and a co-band was used to secure the dressing. The patient was extubated and taken to recovery in stable condition. SPECIMEN: Right leg sent for pathology DRAIN: None ESTIMATED BLOOD LOSS: Approximately 25 mL. COMPLICATIONS: None. PLAN: The plan is for the patient to begin physical and occupational therapy and be evaluated for outpatient rehabilitation. Advance activity as tolerated. Resume preop diet. Analgesia when necessary. High-protein diet to help with wound healing. RICHY SALMON MD Jun 24, 2019 12:16
[2019-06-24] MEDS ORDERED: oxyCODONE 5MG TAB PO PRN (12:30)
[2019-06-24] MEDS ORDERED: fentaNYL 100 MCG/2 ML INJECTION (J3010) IV PRN (12:30)
[2019-06-24] MEDS ORDERED: LR 1,000 ML IV SCH (12:30)
[2019-06-24] MEDS ORDERED: ONDANSETRON 4MG/2ML VIAL (J2405) IV PRN (12:30)
[2019-06-24] MEDS: NS 1,000 ML IV SCH (13:55)
[2019-06-24] MEDS: ASPIRIN 81 MG ENTERIC TAB PO SCH (15:21)
[2019-06-24] MEDS: LEVEMIR (INSULIN DETEMIR) 1 UNITS/0.01ML SC SCH ×2 (15:22→22:00)
[2019-06-24] MEDS: NYSTATIN 100,000 UNITS/GM TOPICAL PWD 15 GM TOP SCH (15:22)
--- NOTE | 2019-06-24 17:45 | IPNPDOC ---
Text Note Date of Service The patient was seen on 06/24/19. NOTE SUBJECTIVE: Patient is seen at bedside status post right eccsk-[id number] amputation. He tolerated the surgery well, and has no complaints at this time. He denies any problems overnight, fevers or chills, shortness of breath, palpitations, chest pain, or worsening lower extremity swelling. He denies loose stools. OBJECTIVE: Vital signs: See below General: This is an unkempt gentleman who appears older than stated age, lying in bed in no acute distress, sad and forlorn-appearing HEENT: Atraumatic, normocephalic, he has a full foss. He is edentulous. Sclerae are anicteric, and there does not seem to be any conjunctival pallor. Neck: No thyromegaly or masses, supple. Carotid bruits heard bilaterally. Heart: Regular rate and rhythm; no murmurs, gallops or rubs. Lungs: Clear to auscultation bilaterally. No wheezes, rhonchi or rales. Abdomen: Soft, normoactive bowel sounds, nontender to palpation. Back: No costovertebral angle tenderness bilaterally. Extremities: The right lower extremity is surgically absent above the knee, wrapped in a dressing/bandage that is dry and intact. The left lower extremity has no edema, clubbing, or cyanosis noted. Neurologic: Sensation is intact throughout except for the right lower extremity, Cranial nerves II-XII are grossly intact. Psychiatric: Answers questions appropriately LABORATORY DATA: See below IMAGING: Chest x-ray from 06/20/2019 showed no acute disease. Surgical clips were present in the right axillary soft tissues ASSESSMENT: This is a 68-year-old male with an extensive history of peripheral vascular disease, and a history of a chronic right foot wound who is being admitted for gangrene of the right lower extremity. Postop day #3 right ankle guillotine, postop day #0 right lpsnh-kqa-[id number] amputation, antibiotics day #5/7. PLAN: 1. 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 Postoperative day #3 status post guillotine at the ankle with Dr. Salmon 06/21/19. P ostoperative day #0 right [id number] and dictation. Continue IV Zosyn, #4/7 days. Pain control per surgery. 2. Lactic acidosis, resolved. Most likely from muscle and tissue of his right foot associated with his gangrene secondary to arterial insufficiency. S/p 30 mL per kg bolus of normal saline. 3. Peripheral vascular disease. Continue aspirin. 4. Type 2 diabetes mellitus. Most recent A1c done in March was 9. Continue with Levemir 8 units twice a day with fingersticks morning and night, as well as a consistent-carbohydrate diet. Sliding scale coverage. 5. Hypertension. Continue lisinopril 6. Hyperlipidemia. Continue statin. 7. Insomnia. Continue the patient's home trazodone, will reassess after surgery, he also has Valium ordered for pain/muscle spasm/anxiety by surgery. 8. Deep vein thrombosis (DVT) prophylaxis. Hemoglobin has been declining, will hold Lovenox 40 mg daily. DISPOSITION: Potential DC to subacute rehabilitation in the next 24-72 hours. VS,Fishbone, I+O VS, Fishbone, I+O Laboratory Tests 06/24/19 00:00 06/24/19 05:29 Vital Signs Date Time Temp Pulse Resp B/P (MAP) Pulse Ox O2 Delivery O2 Flow Rate FiO2 06/24/19 17:00 97.9 58 17 148/60 (89) 96 Room Air 06/24/19 15:00 2.0 I&O- Last 24 Hours up to 6 AM 06/24/19 06:00 Intake Total 3070 ml Output Total 2365 ml Balance 705 ml GME ATTESTATION GME ATTESTATION My faculty preceptor for this patient encounter was physically present during the encounter and was fully available. All aspects of the patient interview, examination, medical decision making process, and medical care plan development were reviewed and approved by the faculty preceptor. The faculty preceptor is aware and concurs with the plan as stated in the body of this note and will attest to such by his/her cosignature. DANIEL KEANE D.O. Jun 24, 2019 17:45
[2019-06-24] MEDS: ATORVASTATIN 20 MG TAB PO SCH (21:59)
[2019-06-24] MEDS: traZODone 100 MG TAB PO SCH (21:59)
[2019-06-24] MEDS: lisinopriL 10 MG TAB PO SCH (21:59)
[2019-06-25 02:00] VITALS: BP 156/68
[2019-06-25] MEDS: NS 1,000 ML IV SCH (04:27)
[2019-06-25] MEDS: PIPERACILLIN/TAZOBACTAM SOD 3.375 GM in D5W MINI-BAG PLUS 50 ML IV SCH ×4 (04:27→21:21)
[2019-06-25] MEDS: PERCOCET 5MG/325MG TAB PO PRN ×3 (05:17→19:29)
[2019-06-25 06:00] VITALS: BP 158/60
[2019-06-25] MEDS: LEVEMIR (INSULIN DETEMIR) 1 UNITS/0.01ML SC SCH ×2 (08:14→21:21)
[2019-06-25] MEDS: ASPIRIN 81 MG ENTERIC TAB PO SCH (08:15)
[2019-06-25] MEDS: HumaLOG INSULIN (NovoLOG) PER UNIT SC SCH ×4 (08:15→21:00)
[2019-06-25] MEDS: NYSTATIN 100,000 UNITS/GM TOPICAL PWD 15 GM TOP SCH (08:15)
[2019-06-25] MEDS: oxyCODONE 5MG TAB PO PRN (09:27)
[2019-06-25 10:00] VITALS: BP 158/76
--- NOTE | 2019-06-25 10:45 | IPNPDOC ---
Text Note Date of Service The patient was seen on 06/25/19. NOTE SUBJECTIVE: Patient is seen at bedside on POD#1 status post right bqkry-jch-rbps amputation. He tolerated the surgery well, and has no complaints at this time except now he is feeling residual sharp pain in his right amputated foot. He denies any problems overnight, fevers or chills, shortness of breath, palpitations, chest pain, or worsening lower extremity swelling. He denies loose stools. OBJECTIVE: Vital signs: See below General: This is an unkempt gentleman who appears older than stated age, lying in bed in no acute distress, no acute distress this morning HEENT: Atraumatic, normocephalic, he has a full foss. He is edentulous. Sclerae are anicteric, and there does not seem to be any conjunctival pallor. Neck: No thyromegaly or masses, supple. Carotid bruits heard bilaterally. Heart: Regular rate and rhythm; no murmurs, gallops or rubs. Lungs: Clear to auscultation bilaterally. No wheezes, rhonchi or rales. Abdomen: Soft, normoactive bowel sounds, nontender to palpation. Back: No costovertebral angle tenderness bilaterally. Extremities: The right lower extremity is surgically absent above the knee, wrapped in a dressing/bandage that is dry and intact. The left lower extremity has no edema, clubbing, or cyanosis noted. Neurologic: Sensation is intact throughout except for the right lower extremity, Cranial nerves II-XII are grossly intact. Psychiatric: Answers questions appropriately LABORATORY DATA: See below IMAGING: Chest x-ray from 06/20/2019 showed no acute disease. Surgical clips were present in the right axillary soft tissues ASSESSMENT: This is a 68-year-old male with an extensive history of peripheral vascular disease, and a history of a chronic right foot wound who is being admitted for gangrene of the right lower extremity. Postop day #4 right ankle guillotine, postop day #1 right qfrfw-mct-xjsx amputation, antibiotics day #6/7. PLAN: 1. 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 Postoperative day #4 status post guillotine at the ankle with Dr. Salmon 06/21/19. Postoperative day #1 right [id number] and dictation. Continue IV Zosyn, #6/7 days. Pain control per surgery. 2. Lactic acidosis, resolved. Most likely from muscle and tissue of his right foot associated with his gangrene secondary to arterial insufficiency. S/p 30 mL per kg bolus of normal saline. 3. Peripheral vascular disease. Continue aspirin. 4. Type 2 diabetes mellitus. Most recent A1c done in March was 9. Continue with Levemir 10 units twice a day with fingersticks morning and night, as well as a consistent-carbohydrate diet. Sliding scale coverage. 5. Hypertension. Continue lisinopril 6. Hyperlipidemia. Continue statin. 7. Insomnia. Continue the patient's home trazodone, will reassess after surgery, he also has Valium ordered for pain/muscle spasm/anxiety by surgery. 8. Deep vein thrombosis (DVT) prophylaxis. Hemoglobin stable, will hold Lovenox 40 mg daily. 9. Phantom limb pain. Continue to monitor. DISPOSITION: Potential DC to subacute rehabilitation in the next 24-48 hours, pending OT/PT/placement for subacute rehab. VS,Fishbone, I+O VS, Fishbone, I+O Vital Signs Date Time Temp Pulse Resp B/P (MAP) Pulse Ox O2 Delivery O2 Flow Rate FiO2 06/25/19 10:23 18 Room Air 06/25/19 10:00 98.1 65 158/76 (103) 97 06/24/19 15:00 2.0 I&O- Last 24 Hours up to 6 AM 06/25/19 06:00 Intake Total 3770 ml Output Total 775 ml Balance 2995 ml GME ATTESTATION GME ATTESTATION My faculty preceptor for this patient encounter was physically present during the encounter and was fully available. All aspects of the patient interview, examination, medical decision making process, and medical care plan development were reviewed and approved by the faculty preceptor. The faculty preceptor is aware and concurs with the plan as stated in the body of this note and will attest to such by his/her cosignature. DANIEL KEANE D.O. Jun 25, 2019 10:44
[2019-06-25 14:00] VITALS: BP 161/60
[2019-06-25] MEDS: traMADol 50 MG TAB PO PRN (15:39)
--- NOTE | 2019-06-25 16:11 | IPNPDOC ---
Date Seen The patient was seen on 06/25/19. Progress Note Patient seen and examined. Doing well postoperative day 1 from right above-knee amputation. He says he feels much better. He is having a little bit of phantom pain, but he says his medication takes care of it. On exam, the incision is clean dry and intact. Was thoroughly cleaned and redressed with Xeroform, flaccid kerlix, and a Coban. The patient is compliant with elevating the leg to help with edema. We encouraged him again to continue drinking his supplement shakes, but he says he cannot drink them anymore and does not want anymore delivered. Unfortunately, without good nutrition, wound healing is a bit tenuous, but we are hopeful that he will continue to eat enough to allow for good wound healing. So far, the incision is doing well. No bruising erythema induration drainage or other concerns are noted. We'll continue to follow closely. PT OT and rehabilitation evaluation were ordered postop. VS, I&O, 24H, Fishbone Vital Signs/I&O Vital Signs Date Time Temp Pulse Resp B/P (MAP) Pulse Ox O2 Delivery O2 Flow Rate FiO2 06/25/19 15:39 18 Room Air 06/25/19 14:00 98.9 65 161/60 (93) 96 06/24/19 15:00 2.0 I&O- Last 24 Hours up to 6 AM 06/25/19 06:00 Intake Total 3770 ml Output Total 775 ml Balance 2995 ml Laboratory Data 24H LABS Laboratory Tests 2 06/24/19 16:23: Bedside Glucose (Misc Panel) 352H 06/24/19 21:17: Bedside Glucose (Misc Panel) 334H 06/25/19 06:02: Bedside Glucose (Misc Panel) 291H 06/25/19 11:29: Bedside Glucose (Misc Panel) 223H Microbiology Microbiology 06/20/19 Blood Culture - Final, Complete NO GROWTH AFTER 5 DAYS 06/20/19 Blood Culture - Final, Complete NO GROWTH AFTER 5 DAYS RICHY CHILDRESS MD Jun 25, 2019 16:11
[2019-06-25 18:00] VITALS: BP 163/60
[2019-06-25] MEDS: lisinopriL 10 MG TAB PO SCH (21:21)
[2019-06-25] MEDS: traZODone 100 MG TAB PO SCH (21:21)
[2019-06-25] MEDS: ATORVASTATIN 20 MG TAB PO SCH (21:21)
[2019-06-25 22:00] VITALS: BP 169/54
[2019-06-26 02:00] VITALS: BP 166/59
[2019-06-26] MEDS: PIPERACILLIN/TAZOBACTAM SOD 3.375 GM in D5W MINI-BAG PLUS 50 ML IV SCH ×4 (03:43→21:30)
[2019-06-26] MEDS: oxyCODONE 5MG TAB PO PRN ×3 (03:46→17:57)
[2019-06-26 06:00] VITALS: BP 162/57
[2019-06-26 06:14] LABS: HEMATOCRIT 29.1 % (42.0-52.0); HEMOGLOBIN 9.3 g/dl (13.5-17.5); MEAN CORPUSCULAR HEMOGLOBIN 26.8 pg (27.0-33.0); MEAN CORPUSCULAR VOLUME 83.9 fl (80.0-96.0); PLATELET COUNT, AUTOMATED 312 10^3/uL (150-450); RED BLOOD COUNT 3.47 10^6/uL (4.30-6.10); WHITE BLOOD COUNT 10.7 10^3/uL (4.0-10.0)
[2019-06-26 06:39] LABS: BLOOD UREA NITROGEN 10 MG/DL (7-18); CARBON DIOXIDE LEVEL 27 MEQ/L (21-32); CHLORIDE LEVEL 111 MEQ/L (98-107); CREATININE FOR GFR 0.82 MG/DL (0.70-1.30); GLOMERULAR FILTRATION RATE > 60.0 (>49); GLUCOSE, FASTING 72 MG/DL (70-100); POTASSIUM SERUM 3.3 MEQ/L (3.5-5.1); SODIUM LEVEL 145 MEQ/L (136-145)
[2019-06-26] MEDS: HumaLOG INSULIN (NovoLOG) PER UNIT SC SCH ×4 (07:30→21:00)
[2019-06-26 08:26] LABS: MAGNESIUM LEVEL 1.9 MG/DL (1.8-2.4)
[2019-06-26] MEDS: PERCOCET 5MG/325MG TAB PO PRN ×2 (08:26→21:32)
[2019-06-26] MEDS: LEVEMIR (INSULIN DETEMIR) 1 UNITS/0.01ML SC SCH (08:33)
[2019-06-26] MEDS ORDERED: LEVEMIR (INSULIN DETEMIR) 1 UNITS/0.01ML SC SCH ×3 (08:57→21:00)
[2019-06-26] MEDS ORDERED: POTASSIUM CHLORIDE 10 MEQ SR TABLET PO ONE (09:00)
[2019-06-26] MEDS: ASPIRIN 81 MG ENTERIC TAB PO SCH (09:36)
[2019-06-26] MEDS: NYSTATIN 100,000 UNITS/GM TOPICAL PWD 15 GM TOP SCH (09:37)
[2019-06-26] MEDS ORDERED: LEVEMIR (INSULIN DETEMIR) 1 UNITS/0.01ML SC ONE ×2 (10:00→21:00)
--- NOTE | 2019-06-26 10:40 | IPNPDOC ---
Text Note Date of Service The patient was seen on 06/26/19. NOTE SUBJECTIVE: Patient is seen at bedside on POD#2 right AKA. No acute overnight events reported. No new medical complaints this morning. Still feeling unusual sensations with his right lower extremity. OBJECTIVE: Vital signs: See below General: NAD, lying comfortably in bed HEENT: NC/AT, edentulous Lungs: CTA B/L Heart: +S1S2, RRR Abd: soft, NT, +BS Ext: right AKA, wrapped in a dressing/bandage that is dry and intact. The left lower extremity has no edema, clubbing, or cyanosis noted. Neurologic: no gross focal deficits Psychiatric: AAOx3 LABORATORY DATA: See below IMAGING: Chest x-ray from 06/20/2019 showed no acute disease. Surgical clips were present in the right axillary soft tissues A/P: This is a 68-year-old male with an extensive history of peripheral vascular disease, and a history of a chronic right foot wound who was admitted for gangrene of the right lower extremity, postop day #2 right [id number] amputation, antibiotics day #01/16. #Right foot gangrene secondary to arterial insufficiency - POD #2 right AKA - completed 7 days IV zosyn today - continue to follow as per surgery - assistance appreciated #Lactic acidosis - resolved - likely from muscle and tissue of his right foot associated with his gangrene secondary to arterial insufficiency # Peripheral vascular disease. Continue aspirin. #Type 2 diabetes mellitus - most recent A1c done in March was 9. Continue with Levemir 10 units twice a day with fingersticks morning and night, as well as a consistent-carbohydrate diet. Sliding scale coverage. #HTN Continue lisinopril #HLD Continue statin. #Insomnia. Continue the patient's home trazodone, will reassess after surgery, he also has Valium ordered for pain/muscle spasm/anxiety by surgery. #Deep vein thrombosis (DVT) prophylaxis #Phantom limb pain. Continue to monitor. DISPOSITION: Pending OT/PT/placement for subacute rehab. VS,Fishbone, I+O VS, Fishbone, I+O Laboratory Tests 06/26/19 05:27 Vital Signs Date Time Temp Pulse Resp B/P (MAP) Pulse Ox O2 Delivery O2 Flow Rate FiO2 06/26/19 09:34 16 06/26/19 06:00 98.3 54 162/57 (92) 96 Room Air 06/24/19 15:00 2.0 I&O- Last 24 Hours up to 6 AM 06/26/19 06:00 Intake Total 1130 ml Output Total 1250 ml Balance -120 ml TALISHA NATION MD Jun 26, 2019 10:40
--- NOTE | 2019-06-26 11:46 | IPNPDOC ---
Date Seen The patient was seen on 06/26/19. Progress Note Patient seen and examined. Doing well today. He is in a good mood and joking around with me. He says he does have a quite a bit of pain in the right lower extremity status post AKA 2 days ago, but it does improve with analgesia. He is still having some phantom pains from time to time as well. He is eating well, and says he got up 3 times with assistance. We are pleased with his progress and we'll see how he does with PT and OT and if he has a rehabilitation candidate. His right stump incision is clean dry and intact. No significant bruising or bruising is noted. The incision was cleaned thoroughly, and dressed with Xeroform kerlix and a Coban. The patient tolerated this well. Continue high- protein diet to help with wound healing, tight glucose control to help with wound healing, elevation of the stump to diminish swelling, and PT OT as tolerated. Will follow. VS, I&O, 24H, Fishbone Vital Signs/I&O Vital Signs Date Time Temp Pulse Resp B/P (MAP) Pulse Ox O2 Delivery O2 Flow Rate FiO2 06/26/19 11:07 18 06/26/19 06:00 98.3 54 162/57 (92) 96 Room Air 06/24/19 15:00 2.0 I&O- Last 24 Hours up to 6 AM 06/26/19 06:00 Intake Total 1130 ml Output Total 1250 ml Balance -120 ml Laboratory Data 24H LABS Laboratory Tests 2 06/25/19 16:33: Bedside Glucose (Misc Panel) 173H 06/25/19 21:00: Bedside Glucose (Misc Panel) 126H 06/26/19 05:27: Nucleated Red Blood Cells % (auto) 0.2H, Anion Gap 7L, Glomerular Filtration Rate > 60.0, Calcium Level 8.0L, Magnesium Level 1.9 CBC/BMP Laboratory Tests 06/26/19 05:27 Microbiology Microbiology 06/20/19 Blood Culture - Final, Complete NO GROWTH AFTER 5 DAYS 06/20/19 Blood Culture - Final, Complete NO GROWTH AFTER 5 DAYS RICHY CHILDRESS MD Jun 26, 2019 11:46
[2019-06-26 14:00] VITALS: BP 148/75
[2019-06-26] MEDS: ATORVASTATIN 20 MG TAB PO SCH (21:30)
[2019-06-26] MEDS: traZODone 100 MG TAB PO SCH (21:30)
[2019-06-26] MEDS: lisinopriL 10 MG TAB PO SCH (21:31)
[2019-06-26 22:00] VITALS: BP 182/62
[2019-06-27] MEDS: PIPERACILLIN/TAZOBACTAM SOD 3.375 GM in D5W MINI-BAG PLUS 50 ML IV SCH (04:17)
[2019-06-27 06:00] VITALS: BP 170/69
[2019-06-27 06:29] LABS: HEMOGLOBIN 9.9 g/dl (13.5-17.5); MEAN CORPUSCULAR HEMOGLOBIN 26.5 pg (27.0-33.0); MEAN CORPUSCULAR HGB CONC 30.9 g/dl (32.0-36.5); MEAN CORPUSCULAR VOLUME 85.6 fl (80.0-96.0); PLATELET COUNT, AUTOMATED 366 10^3/uL (150-450); RED BLOOD COUNT 3.74 10^6/uL (4.30-6.10); WHITE BLOOD COUNT 9.5 10^3/uL (4.0-10.0)
[2019-06-27 06:50] LABS: BLOOD UREA NITROGEN 10 MG/DL (7-18); CALCIUM LEVEL 8.7 MG/DL (8.8-10.2); CARBON DIOXIDE LEVEL 26 MEQ/L (21-32); CHLORIDE LEVEL 110 MEQ/L (98-107); CREATININE FOR GFR 0.84 MG/DL (0.70-1.30); GLOMERULAR FILTRATION RATE > 60.0 (>49); GLUCOSE, FASTING 107 MG/DL (70-100); POTASSIUM SERUM 3.9 MEQ/L (3.5-5.1); SODIUM LEVEL 143 MEQ/L (136-145)
[2019-06-27] MEDS: HumaLOG INSULIN (NovoLOG) PER UNIT SC SCH ×2 (07:30→13:30)
[2019-06-27] MEDS: ASPIRIN 81 MG ENTERIC TAB PO SCH (08:02)
[2019-06-27] MEDS: diazePAM 5 MG TAB PO PRN (08:02)
--- NOTE | 2019-06-27 08:56 | IPNPDOC ---
Text Note Date of Service The patient was seen on 06/27/19. NOTE Vascular surgery. Dr. Salmon The patient is a 68-year-old male with history of PAD POD [address] Salmon. The patient is currently resting in bed. He is complaining of a lot pain currently. States that nursing was in this morning and moved around in the bed and he has a lot of pain right now. Dressing remains intact over the right AKA. The patient remains afebrile. White blood cell count 9.5, hemoglobin 9.9. The patient's dressing is in place currently, he states he is in a lot of pain to have a change right now. Will return later to change the patient's dressing. Continue with dressing changes. Dressing changes postpone this morning related to pain. From his medication administration record it appears that he last received oxycodone at 1800 hrs 06/26 and Percocet at 2130 hrs /15. He has not had any pain medication yet this morning. Will return after analgesia administration to change his dressing. Continue broad-spectrum antibiotics. Continue pain control. Currently the patient remains on Percocet 2 tabs every 4 as needed. Oxycodone is ordered for breakthrough pain. Valium 2.5 mg every 8 hours as needed. Continue with elevation of right lower extremity Tentative plan as per nursing is for possible transfer to ARU today. Continue to encourage high protein diet to facilitate healing. Continue to closely monitor. VS,Fishbone, I+O VS, Fishbone, I+O Laboratory Tests 06/27/19 05:30 06/27/19 05:31 Vital Signs Date Time Temp Pulse Resp B/P (MAP) Pulse Ox O2 Delivery O2 Flow Rate FiO2 06/27/19 06:00 98.7 71 16 170/69 (102) 96 Room Air 06/24/19 15:00 2.0 I&O- Last 24 Hours up to 6 AM 06/27/19 06:00 Intake Total 1706 ml Output Total 3600 ml Balance -1894 ml Amara Hawkins Jun 27, 2019 08:56
[2019-06-27] MEDS ORDERED: LEVEMIR (INSULIN DETEMIR) 1 UNITS/0.01ML SC SCH (09:00)
[2019-06-27] MEDS: oxyCODONE 5MG TAB PO PRN ×2 (10:32→14:44)
[2019-06-27] MEDS: lisinopriL 10 MG TAB PO SCH ×2 (10:34→10:35)
[2019-06-27 10:35] VITALS: BP 207/66
[2019-06-27] MEDS: NYSTATIN 100,000 UNITS/GM TOPICAL PWD 15 GM TOP SCH (10:53)
[2019-06-27] MEDS ORDERED: OXYC-517 PO (12:23)
[2019-06-27 14:00] VITALS: BP 142/65
--- NOTE | 2019-06-27 16:01 | DS.PDOC ---
Discharge Summary General Date of Admission Jun 20, 2019 at 13:41 Date of Discharge June 27, 2019 Attending Physician: NESTOR COOPER MD Specialist/Consultants Involve: RICHY CHILDRESS MD Discharge Summary PROCEDURES PERFORMED DURING STAY: Right lower extremity AKA ADMITTING DIAGNOSES: 1. Right gangrenous foot, secondary to arterial insufficiency DISCHARGE DIAGNOSES: 1. Arterial insufficiency 2. Peripheral vascular disease COMPLICATIONS/CHIEF COMPLAINT: Gangrene Due To Arterial Insufficiency. HISTORY OF PRESENT ILLNESS: This is a 68-year-old male with a history of peripheral vascular disease who presented to the emergency department today stating that his right foot was . He is normally sees Dr. 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 At that time, he was not mentally prepared for this to happen; however, his discoloration has worsened, and he has noticed his foot has started oozing overnight, so he decided to present to the emergency department today. He states that the problems with his foot began in 1970 when he was in the [employer] during [place]. He says that they gave him boots that were too small. Over the subsequent years, he has developed pain in his foot that started a few years ago, which has gotten worse over time. He does take tramadol outpatient but states that it does not work. He has noticed discoloration in the tissues and blackening of the foot over the last month or so. He has also developed tingling that started in the bottom of the foot and has progressed to almost the mid calf above the ankle. He denies fevers or chills, weight changes, or night sweats. He states that his left foot is fine, denies any numbness or tingling in the left lower extremity. He has no issues with his upper extremities either. HOSPITAL COURSE: Patient was admitted with R lower extremity infection, was evaluated by vascular surgery, and subsequently first underwent guillotine at the ankle and later R AKA. The patient received perioperative antibiotics. Postoperative care was uneventful other than pain management. The patient did have hypertension which was most likely secondary to pain. He was discharged to acute rehabilitation unit in stable condition. DISCHARGE MEDICATIONS: Please see below. ALLERGIES: Please see below. PHYSICAL EXAMINATION ON DISCHARGE: PHYSICAL EXAMINATION: VITAL SIGNS: Please see below. GENERAL APPEARANCE: Laying in bed, appears stated age, no acute distress, calm, cooperative HEENT: EOMI, PERRLA, neck is supple with no thyromegaly or lymphadenopathy RESPIRATORY: Lungs are clear to auscultation bilaterally with no adventitious breath sounds appreciated CARDIOVASCULAR: no JVD, RRR,no murmurs/rubs/gallops ABDOMEN: Soft, nontender to palpation in all four quadrants, no masses/organomegaly EXTREMITIES: no clubbing, cyanosis or edema noted NEUROLOGICAL: No obvious focal deficits PSYCHIATRIC: normal mood/affect Skin: No rashes or ulcers. LN: No significant cervical or inguinal lymphadenopathy LABORATORY DATA: Please see below. IMAGING: CXR: No acute disease. Surgical clips in the right axillary soft tissues. PROGNOSIS: Fair ACTIVITY: [As tolerated]. DIET: Consistent carbohydrate DISCHARGE PLAN: Acute rehabilitation unit DISPOSITION: 62 D/T Rehab Facility. DISCHARGE INSTRUCTIONS: 1. None ITEMS TO FOLLOWUP ON ON OUTPATIENT: 1. None DISCHARGE CONDITION: [Stable]. TIME SPENT ON DISCHARGE: Greater than 30 minutes. Vital Signs/I&Os Vital Signs Date Time Temp Pulse Resp B/P (MAP) Pulse Ox O2 Delivery O2 Flow Rate FiO2 06/27/19 14:44 18 06/27/19 14:00 97.9 75 142/65 (90) 98 Room Air 06/24/19 15:00 2.0 I&O- Last 24 Hours up to 6 AM 06/27/19 06:00 Intake Total 1706 ml Output Total 3600 ml Balance -1894 ml Laboratory Data Labs 24H Laboratory Tests 2 06/26/19 16:38: Bedside Glucose (Misc Panel) 159H 06/26/19 20:52: Bedside Glucose (Misc Panel) 185H 06/27/19 05:30: Anion Gap 7L, Glomerular Filtration Rate > 60.0, Calcium Level 8.7L 06/27/19 05:31: Nucleated Red Blood Cells % (auto) 0.0 06/27/19 12:33: Bedside Glucose (Misc Panel) 198H CBC/BMP Laboratory Tests 06/27/19 05:30 06/27/19 05:31 FSBS Laboratory Tests Test 06/26/19 16:38 06/26/19 20:52 06/27/19 12:33 Range/Units Bedside Glucose (Misc Panel) 159 185 198 80-115 MG/DL Microbiology Microbiology 06/20/19 Blood Culture - Final, Complete NO GROWTH AFTER 5 DAYS 06/20/19 Blood Culture - Final, Complete NO GROWTH AFTER 5 DAYS Discharge Medications Scheduled Aspirin (Aspirin EC) 81 Mg Tablet.dr, 81 MG PO DAILY, (Reported) Atorvastatin Calcium (Atorvastatin Calcium) 80 Mg Tab, 80 MG PO QHS, (Reported) Lisinopril (Lisinopril) 10 Mg Tablet, 10 MG PO DAILY, (Reported) Metformin HCl (Metformin HCl) 1,000 Mg Tab, 1,000 MG PO BIDWM, (Reported) Nystatin (Nystatin Powder) 15 Gm Powder, 1 APLCT TOP DAILY, (Reported) APPLY TO LEFT FOOT Trazodone HCl (Trazodone HCl) 100 Mg Tablet, 100 MG PO QHS, (Reported) Scheduled PRN Ketoconazole (Ketoconazole) 120 Ml Shampoo, 1 DOSE TOP DAILY PRN for INFLAMED SKIN, (Reported) APPLY TO SCALP AND AQUINO Oxycodone HCl (Oxycodone HCl) 5 Mg Tablet, 10 MG PO Q4HP PRN for BREAKTHROUGH PAIN/SEVERE PAIN Tramadol HCl (Tramadol HCl) 50 Mg Tablet, 50 MG PO DAILY PRN for PAIN, (Reported) Allergies Coded Allergies: ibuprofen (Verified Allergy, Severe, TROUBLE BREATHING, 04/04/19) strawberry (Verified Allergy, Severe, THROAT SWELLING, 04/04/19) GME ATTESTATION GME ATTESTATION My faculty preceptor for this patient encounter was physically present during the encounter and was fully available. All aspects of the patient interview, examination, medical decision making process, and medical care plan development were reviewed and approved by the faculty preceptor. The faculty preceptor is aware and concurs with the plan as stated in the body of this note and will attest to such by his/her cosignature. GME ATTESTATION GME ATTESTATION My faculty preceptor for this patient encounter was physically present during the encounter and was fully available. All aspects of the patient interview, examination, medical decision making process, and medical care plan development were reviewed and approved by the faculty preceptor. The faculty preceptor is aware and concurs with the plan as stated in the body of this note and will attest to such by his/her cosignature. ATTENDING NOTE Patient was seen and examined by me this morning with the residents. Agree with the above assessment and plan SCOTT MONTEZ MD Jun 27, 2019 16:00 NESTOR COOPER MD Jun 29, 2019 08:47
[2019-06-27] MEDS ORDERED: lisinopriL 10 MG TAB PO SCH (21:00)
== END 2019-06-27 15:01 | DRG 240 ==
LOC: M ED 09:38 → M ED INP 13:41 → M MSPAV 15:20
PROVIDERS: ADMIT Internal Medicine; ATTEND Internal Medicine
PROC: 0Y6M0Z0 Detachment at Right Foot, Complete, Open Approach (ICD-10-PCS; principal; 2019-06-21 20:00)
PROC: 0Y6C0Z3 Detachment at Right Upper Leg, Low, Open Approach (ICD-10-PCS; 2019-06-24)
DX: E11.52 Type 2 diabetes mellitus with diabetic peripheral angiopathy with gangrene (principal); E87.2 Acidosis; Z88.6 Allergy status to analgesic agent; Z91.018 Allergy to other foods; Z79.82 Long term (current) use of aspirin; Z79.899 Other long term (current) drug therapy; Z87.891 Personal history of nicotine dependence; E78.5 Hyperlipidemia, unspecified; G47.00 Insomnia, unspecified; Z86.73 Personal history of transient ischemic attack (TIA), and cerebral infarction without residual deficits; F43.10 Post-traumatic stress disorder, unspecified; I10 Essential (primary) hypertension; G54.6 Phantom limb syndrome with pain

== ENCOUNTER 2019-06-27 13:27 | Inpatient (IN) | payer MEDICARE, MEDICAID ==
[~2019-06-27] VITALS: Ht 160 cm; Wt 56.9 kg
[~2019-06-27 13:27] MED LIST changes: +ASPI-161 PO; +OXYC-517 PO
[2019-06-27 15:10] VITALS: BP 173/70
[2019-06-27] MEDS ORDERED: traZODone 100 MG TAB PO PRN (15:45)
[2019-06-27] MEDS ORDERED: MOM 30ML SUSPENSION UDC PO PRN (15:45)
[2019-06-27] MEDS ORDERED: GLUCOSE 4 GM CHEW TABLET PO PRN (15:45)
[2019-06-27] MEDS ORDERED: GLUCAGON FOR INJ 1 MG VIAL (J1610) SC PRN (15:45)
[2019-06-27] MEDS ORDERED: DEXTROSE 50% 50 ML SYRINGE IV PRN (15:45)
[2019-06-27] MEDS ORDERED: PILL CUTTER 1 EACH XX PRN (16:15)
[2019-06-27] MEDS: ACETAMINOPHEN 500 MG TAB PO SCH ×2 (17:43→21:26)
[2019-06-27] MEDS: HumaLOG INSULIN (NovoLOG) PER UNIT SC SCH ×2 (17:44→21:00)
[2019-06-27 20:00] VITALS: BP 142/65
[2019-06-27] MEDS: SENNA 8.6 MG TAB (SENOKOT) PO SCH (20:50)
[2019-06-27] MEDS: diazePAM 5 MG TAB PO PRN (20:50)
[2019-06-27] MEDS: DOCUSATE SODIUM 100 MG CAP PO SCH (20:50)
[2019-06-27] MEDS: GABAPENTIN 100 MG CAP PO SCH (20:50)
[2019-06-27] MEDS: lisinopriL 10 MG TAB PO SCH (20:51)
[2019-06-27] MEDS: ATORVASTATIN 20 MG TAB PO SCH (20:51)
[2019-06-27] MEDS ORDERED: GABAPENTIN 100 MG CAP PO SCH (21:00)
[2019-06-27] MEDS: LEVEMIR (INSULIN DETEMIR) 1 UNITS/0.01ML SC SCH (21:25)
[2019-06-28 06:00] VITALS: BP 140/60
[2019-06-28 07:26] LABS: BASO # 0.1 10^3/uL (0.0-0.2); BASO % 0.9 % (0.0-1.0); EOS # 0.4 10^3/uL (0.0-0.5); EOS % 3.7 % (0.0-3.0); HEMATOCRIT 36.1 % (42.0-52.0); HEMOGLOBIN 11.1 g/dl (13.5-17.5); LYMPH # 1.6 10^3/uL (1.5-5.0); LYMPH % 15.1 % (24.0-44.0); MEAN CORPUSCULAR HEMOGLOBIN 26.2 pg (27.0-33.0); MEAN CORPUSCULAR HGB CONC 30.7 g/dl (32.0-36.5); MEAN CORPUSCULAR VOLUME 85.3 fl (80.0-96.0); MONO # 0.9 10^3/uL (0.0-0.8); MONO % 8.2 % (0.0-5.0); NEUTROPHILS # 7.4 10^3/uL (1.5-8.5); NEUTROPHILS % 71.1 % (36.0-66.0); PLATELET COUNT, AUTOMATED 426 10^3/uL (150-450); RED BLOOD COUNT 4.23 10^6/uL (4.30-6.10); WHITE BLOOD COUNT 10.4 10^3/uL (4.0-10.0)
[2019-06-28 07:51] LABS: ALBUMIN 2.1 GM/DL (3.2-5.2); ALT/SGPT 30 U/L (12-78); BILIRUBIN,TOTAL 0.3 MG/DL (0.2-1.0); BLOOD UREA NITROGEN 11 MG/DL (7-18); CALCIUM LEVEL 8.8 MG/DL (8.8-10.2); CARBON DIOXIDE LEVEL 26 MEQ/L (21-32); CHLORIDE LEVEL 110 MEQ/L (98-107); CREATININE FOR GFR 0.74 MG/DL (0.70-1.30); GLOMERULAR FILTRATION RATE > 60.0 (>49); GLUCOSE, FASTING 168 MG/DL (70-100); POTASSIUM SERUM 4.3 MEQ/L (3.5-5.1); SODIUM LEVEL 142 MEQ/L (136-145); TOTAL PROTEIN 6.6 GM/DL (6.4-8.2)
[2019-06-28] MEDS: ENOXAPARIN 40 MG/0.4 ML SYRINGE (J1650) SC SCH (08:47)
[2019-06-28] MEDS: lisinopriL 10 MG TAB PO SCH ×2 (08:48→20:08)
[2019-06-28] MEDS: HumaLOG INSULIN (NovoLOG) PER UNIT SC SCH ×4 (08:48→20:10)
[2019-06-28] MEDS: LEVEMIR (INSULIN DETEMIR) 1 UNITS/0.01ML SC SCH ×2 (08:48→20:15)
[2019-06-28] MEDS: GABAPENTIN 100 MG CAP PO SCH ×3 (08:48→20:08)
[2019-06-28] MEDS: oxyCODONE 5MG TAB PO PRN ×4 (08:49→21:44)
[2019-06-28] MEDS: PANTOPRAZOLE 40MG TAB (PROTONIX) PO SCH (08:49)
[2019-06-28] MEDS: DOCUSATE SODIUM 100 MG CAP PO SCH ×2 (08:49→20:08)
[2019-06-28] MEDS: ASPIRIN 81 MG ENTERIC TAB PO SCH (08:49)
[2019-06-28] MEDS: ACETAMINOPHEN 500 MG TAB PO SCH ×3 (08:50→20:10)
[2019-06-28] MEDS ORDERED: NYSTATIN 100,000 UNITS/GM TOPICAL PWD 15 GM TOP SCH (09:00)
[2019-06-28 09:23] LABS: C REACTIVE PROTEIN QUANTITATIV 1.16 MG/DL (0.00-0.30)
--- NOTE | 2019-06-28 10:52 | HPEPDOC ---
Display Designer Note DATE OF ADMISSION: 06-27-19 DATE OF SERVICE: 06-27-19 TIME OF ADMISSION: Please refer to physician's admission order. SOURCE OF ADMISSION INFORMATION: [facility] record and patient CHIEF COMPLAINT: right AKA with peripheral polyneuropathy HISTORY OF PRESENT ILLNESS: 68M pmh DM2, PTSD, HTN, tobacco use, hx of 3 CVAs, HLD, HTN, who underwent a right profunda to below the knee bypass in March performed by Dr. Salmon, and presented to [facility] ED on 06-20-19 with gangrene of his foot. He was evaluated by vascular surgery, was started on IV antibiotics and underwent a right ankle guillotine on 06-21-19 and a later right AKA on 06-24-19 without any post-op complications, however did have some leukocytosis. He was evaluated by therapy, noted to be well below his prior level of function and deemed medically appropriate for discharge to ARU on 06-27-19. On initial visit patient reports he has burning pain in his left leg and in his residual limb. He used to take Gabapentin for her polyneuropathy and would like to restart this. REVIEW OF SYSTEMS: The following is a completed review of systems and has been reviewed. Review of systems otherwise unremarkable. PAIN: Patient self reports right residual limb pain EYES: No recent vision changes EARS, NOSE, & THROAT: No throat pain, or dysphagia, or rhinorrhea CARDIOVASCULAR: Denies chest pain or palpitations PULMONARY: Denies shortness of breath GASTROINTESTINAL: Denies constipation/diarrhea GENITOURINARY: denies dysuria MUSCULOSKELETAL: right AKA NEUROLOGICAL:+peripheral polyneuropathy HEMATOLOGICAL: denies easy bruising SKIN: right AKA incision PSYCHIATRIC: Unremarkable All other review of systems found to be negative. PAST MEDICAL HISTORY: as per HPI PAST SURGICAL HISTORY: Right Ax-fem, Right to left Fem-Fem bypass grafting ALLERGIES: Please see below. MEDICATIONS: Please see below. SOCIAL HISTORY: 1/2 a pack smoker, no etoh/illicit drug use DIET: low sodium PHYSICAL EXAMINATION: VITAL SIGNS: Please see below. GENERAL: Pleasant and cooperative. No acute distress. thin HEENT: PERRL. Extraocular movements intact. Clear conjunctiva CARDIOVASCULAR: Regular rate and rhythm. No murmurs, rubs, or gallops LUNGS: Clear to auscultation bilaterally. No wheezes. No rhonchi ABDOMEN: Soft, nontender, nondistended. Positive bowel sounds. Normal active bowel sounds NEUROLOGICAL: Alert and oriented times three. Cranial nerves II through XII grossly intact. Sensation diminished left lower extremity in stocking pattern EXTREMITIES: 5\5 strength bilateral upper extremities. 5\5 strength right hip flexion. 5/5 strength in left lower extremity. SKIN: right AKA incision LABORATORY DATA: Please see below. IMAGING:Imaging documentation personally reviewed by record FUNCTIONAL STATUS: Premorbid: Independent with all activities of daily life as well as mobility On Admission: Mod-Maximum assistance for bathing, upper body dressing, bed chair and wheelchair transfers, toilet transfers, ambulation x 1 foot GOALS: Mod-I household distances with RW, functional transfers, bathing, dressing, toileting, limb care, assess for DMEs, medical optimization ASSESSMENT:68-year-old M with past medical history of PVD who presents status post right AKA. PLAN: 1. Rehab- PT advance gait training, limb care, maintain ROM of right hip, incorporate prone position for hip extension OT- advance ADL, maintain rom/strength/stretch bilut UW, scapular stabilization 2. Neuro: peirpheral polyneuropathy- optimize dibetic control -hx of 3 CVAs, c/u ASA and statin therapy 3. Vasc: s/p right AKA 06-24-19, vasc consulted, s/p course of Zosyn 4. Cardiac- recent ECHO no systolic/diastolic CHF -HTN- c/i lisinopril -medicine consulted to assist in management 5. Resp: encourage incentive spirometry, monitor for infection -educate on smoking cessation 6. GI ppx: protonix 7. DVT ppx: lovenox 8. Pain: tylenol, gabapentin, oxycodone 9. Psych: PTSD c/u Xanax prn, trazodone for insomnia 10. Dispo: TBD POST ADMISSION PHYSICIAN EVALUATION: Medical and functional status: Description of medical status, medical assessment: As above. Rehabilitation diagnosis and current and prior cold morbid medical conditions as above. Risk of complications and plans to mitigate them as above. Description of functional status current status is as above. Prior status as above. Status compared to preadmission: There are no clinically significant differences between the patient's current status and the information described on the preadmission screening document. Treatment plan anticipated: Treatment plan is as described above. Required disciplines including physical therapy, occupational therapy, others as noted above. Intensity of services: 3 hours a day, 6 days a week. Special considerations: There are no specific special or safety considerations that would likely preclude immediate implementation of an intensive rehabilitation program or subsequently influence the plan of care. ATTESTATION: Considering all the information above, it is my best judgment that this patient requires intensive rehabilitation therapy as described above and an inpatient hospital environment due to the complexity of nursing, medical, and rehabilitation needs required by the patient. Furthermore, this patient can reasonably be expected to participate in an benefit from an inpatient rehabilit ation stay with an interdisciplinary team approach to the delivery of rehabilitation care under the direction and supervision of rehabilitation physician PROGNOSIS: Excellent ESTIMATED LENGTH OF STAY:14-18 days. PROJECTED DISCHARGE DESTINATION: Home with family support and any durable medical equipment required to increase functional safety and mobility TIME SPENT COUNSELING AND COORDINATING INITIAL CARE: Greater than 70 minutes. Vital Signs Vital Sign - Last 24 Hours 06/27/19 06/27/19 06/27/19 06/28/19 15:10 20:00 20:51 06:00 Temp 98.6 98.7 98.8 Pulse 61 66 57 Resp 18 18 18 B/P (MAP) 173/70 (104) 142/65 (90) 142/65 140/60 (86) Pulse Ox 97 96 97 O2 Delivery Room Air Room Air Room Air 06/28/19 08:49 Resp 18 Laboratory Data CBC/BMP Laboratory Tests 06/28/19 07:03 Labs 24H Laboratory Tests 2 06/27/19 16:35: Bedside Glucose (Misc Panel) 182H 06/27/19 20:43: Bedside Glucose (Misc Panel) 242H 06/28/19 06:33: Bedside Glucose (Misc Panel) 169H 06/28/19 07:03: Immature Granulocyte % (Auto) 1.0, Neutrophils (%) (Auto) 71.1H, Lymphocytes (%) (Auto) 15.1L, Monocytes (%) (Auto) 8.2H, Eosinophils (%) (Auto) 3.7H, Basophils (%) (Auto) 0.9, Neutrophils # (Auto) 7.4, Lymphocytes # (Auto) 1.6, Monocytes # (Auto) 0.9H, Eosinophils # (Auto) 0.4, Basophils # (Auto) 0.1, Nucleated Red Blo od Cells % (auto) 0.0, Anion Gap 6L, Glomerular Filtration Rate > 60.0, Calcium Level 8.8, Total Bilirubin 0.3, Aspartate Amino Transf (AST/SGOT) 20, Alanine Aminotransferase (ALT/SGPT) 30, Alkaline Phosphatase 73, C-Reactive Protein, Quantitative 1.16H, Total Protein 6.6, Albumin 2.1L, Albumin/Globulin Ratio 0.47L FSBS Laboratory Tests Test 06/27/19 16:35 06/27/19 20:43 06/28/19 06:33 Range/Units Bedside Glucose (Misc Panel) 182 242 169 80-115 MG/DL Home Medications Scheduled Aspirin (Aspirin EC) 81 Mg Tablet.dr, 81 MG PO DAILY, (Reported) Atorvastatin Calcium (Atorvastatin Calcium) 80 Mg Tab, 80 MG PO QHS, (Reported) Lisinopril (Lisinopril) 10 Mg Tablet, 10 MG PO DAILY, (Reported) Metformin HCl (Metformin HCl) 1,000 Mg Tab, 1,000 MG PO BIDWM, (Reported) Nystatin (Nystatin Powder) 15 Gm Powder, 1 APLCT TOP DAILY, (Reported) APPLY TO LEFT FOOT Trazodone HCl (Trazodone HCl) 100 Mg Tablet, 100 MG PO QHS, (Reported) Scheduled PRN Ketoconazole (Ketoconazole) 120 Ml Shampoo, 1 DOSE TOP DAILY PRN for INFLAMED SKIN, (Reported) APPLY TO SCALP AND AQUINO Oxycodone HCl (Oxycodone HCl) 5 Mg Tablet, 10 MG PO Q4HP PRN for BREAKTHROUGH PAIN/SEVERE PAIN Tramadol HCl (Tramadol HCl) 50 Mg Tablet, 50 MG PO DAILY PRN for PAIN, (Reported) Allergies Coded Allergies: ibuprofen (Verified Allergy, Severe, TROUBLE BREATHING, 04/04/19) strawberry (Verified Allergy, Severe, THROAT SWELLING, 04/04/19) A-FIB/CHADSVASC A-FIB History Current/History of A-Fib/PAF?: No SABRINA LOCKETT MD Jun 28, 2019 10:52
--- NOTE | 2019-06-28 12:22 | IPNPDOC ---
PM&R Progress Note DATE OF SERVICE: Jun 28, 2019 Street Supervisor Progress Note Subjective: Patient reporting he is in 9/10 pain. he is able to mobilize himself in bed and tolerate his wound care. He reports he is enjoying therapy. REVIEW OF SYSTEMS: The following is a completed review of systems and has been reviewed. Review of systems otherwise unremarkable. PAIN: Patient self reports right residual limb pain EYES: No recent vision changes EARS, NOSE, & THROAT: No throat pain, or dysphagia, or rhinorrhea CARDIOVASCULAR: Denies chest pain or palpitations PULMONARY: Denies shortness of breath GASTROINTESTINAL: Denies constipation/diarrhea GENITOURINARY: denies dysuria MUSCULOSKELETAL: right AKA NEUROLOGICAL:+peripheral polyneuropathy HEMATOLOGICAL: denies easy bruising SKIN: right AKA incision PSYCHIATRIC: Unremarkable All other review of systems found to be negative. PHYSICAL EXAMINATION: VITAL SIGNS: Please see below. GENERAL: Pleasant and cooperative. No acute distress. thin HEENT: PERRL. Extraocular movements intact. Clear conjunctiva CARDIOVASCULAR: Regular rate and rhythm. No murmurs, rubs, or gallops LUNGS: Clear to auscultation bilaterally. No wheezes. No rhonchi ABDOMEN: Soft, nontender, nondistended. Positive bowel sounds. Normal active bowel sounds NEUROLOGICAL: Alert and oriented times three. Cranial nerves II through XII grossly intact. Sensation diminished left lower extremity in stocking pattern EXTREMITIES: 5\5 strength bilateral upper extremities. 5\5 strength right hip flexion. 5/5 strength in left lower extremity. SKIN: right AKA incision, c/d/i no carlos eduardo-incision maceration or drainage ASSESSMENT:68-year-old M with past medical history of PVD who presents status post right AKA. PLAN: 1. Rehab- PT advance gait training, limb care, maintain ROM of right hip, incorporate prone position for hip extension OT- advance ADL, maintain rom/strength/stretch bilat UE, scapular stabilization 2. Neuro: peripheral polyneuropathy- optimize diabetic control -hx of 3 CVAs, c/u ASA and statin therapy 3. Vasc: s/p right AKA 06-24-19, vasc consulted, s/p course of Zosyn 4. Cardiac- recent ECHO no systolic/diastolic CHF -HTN- c/i lisinopril -medicine consulted to assist in management 5. Resp: encourage incentive spirometry, monitor for infection -educate on smoking cessation 6. GI ppx: protonix 7. DVT ppx: lovenox 8. Pain: tylenol, gabapentin, oxycodone changed to standing 9. Psych: PTSD c/u Xanax prn, trazodone for insomnia 10. Dispo: TBD Allergies Coded Allergies: ibuprofen (Verified Allergy, Severe, TROUBLE BREATHING, 04/04/19) strawberry (Verified Allergy, Severe, THROAT SWELLING, 04/04/19) Vital Signs Vital Signs Date Time Temp Pulse Resp B/P (MAP) Pulse Ox O2 Delivery O2 Flow Rate FiO2 06/28/19 09:19 18 06/28/19 06:00 98.8 57 140/60 (86) 97 Room Air Laboratory Data CBC/BMP Laboratory Tests 06/28/19 07:03 Labs 24H Laboratory Tests 2 06/27/19 16:35: Bedside Glucose (Misc Panel) 182H 06/27/19 20:43: Bedside Glucose (Misc Panel) 242H 06/28/19 06:33: Bedside Glucose (Misc Panel) 169H 06/28/19 07:03: Immature Granulocyte % (Auto) 1.0, Neutrophils (%) (Auto) 71.1H, Lymphocytes (%) (Auto) 15.1L, Monocytes (%) (Auto) 8.2H, Eosinophils (%) (Auto) 3.7H, Basophils (%) (Auto) 0.9, Neutrophils # (Auto) 7.4, Lymphocytes # (Auto) 1.6, Monocytes # (Auto) 0.9H, Eosinophils # (Auto) 0.4, Basophils # (Auto) 0.1, Nucleated Red Blood Cells % (auto) 0.0, Anion Gap 6L, Glomerular Filtration Rate > 60.0, Calcium Level 8.8, Total Bilirubin 0.3, Aspartate Amino Transf (AST/SGOT) 20, Alanine Aminotransferase (ALT/SGPT) 30, Alkaline Phosphatase 73, C-Reactive Protein, Quantitative 1.16H, Total Protein 6.6, Albumin 2.1L, Albumin/Globulin Ratio 0.47L 06/28/19 11:58: Bedside Glucose (Misc Panel) 178H Current Medications Current Medications Current Medications Medications (Trade) Dose Ordered Sig/Jess Route PRN Reason Start Time Stop Time Status Last Admin Dose Admin Acetaminophen (Tylenol Tab) 1,000 mg TID PO 06/27/19 16:00 06/28/19 08:50 Aspirin (Ecotrin) 81 mg DAILY PO 06/28/19 09:00 06/28/19 08:49 Atorvastatin Calcium (Lipitor) 80 mg QHS PO 06/27/19 21:00 06/27/19 20:51 Dextrose (Dextrose 50%) 25 ml ASDIRECTED PRN IV SEE LABEL COMMENTS 06/27/19 15:45 Diazepam (Valium) 2.5 mg Q8HP PRN PO SPASMS 06/27/19 15:45 06/27/19 20:50 Docusate Sodium (Colace) 100 mg BID PO 06/27/19 21:00 06/28/19 08:49 Enoxaparin Sodium (Lovenox) 40 mg DAILY SC 06/28/19 09:00 06/28/19 08:47 Gabapentin (Neurontin) 100 mg QHS PO 06/27/19 21:00 06/27/19 16:34 DC Gabapentin (Neurontin) 100 mg TID PO 06/27/19 21:00 06/28/19 08:48 Glucagon (Glucagon) 1 mg ASDIRECTED PRN SC SEE LABEL COMMENTS 06/27/19 15:45 Glucose (Glucose) 16 GM ASDIRECTED PRN PO SEE LABEL COMMENTS 06/27/19 15:45 Insulin Detemir (Levemir Insulin) 12 units BID SC 06/27/19 21:00 06/28/19 08:48 Insulin Human Lispro (HumaLOG INSULIN) SEE PROTOCOL TABLE AC SC 06/27/19 17:30 06/28/19 08:48 Insulin Human Lispro (HumaLOG INSULIN) SEE PROTOCOL TABLE QHS SC 06/27/19 21:00 Lisinopril (Prinivil) 10 mg BID PO 06/27/19 21:00 06/28/19 08:48 Magnesium Hydroxide (Milk Of Magnesia) 30 ml DAILYPRN PRN PO CONSTIPATION 06/27/19 15:45 Nystatin (Mycostatin Powder, Nystop) top of left foot DAILY TOP 06/28/19 09:00 06/28/19 10:51 DC Oxycodone HCl (Roxicodone, Oxyir) 5 mg Q4HP PRN PO PAIN 06/27/19 15:45 06/28/19 08:49 Pantoprazole Sodium (Protonix) 40 mg DAILY PO 06/28/19 09:00 06/28/19 08:49 Senna (Senokot) 1 tab QHS PO 06/27/19 21:00 06/27/19 20:50 Trazodone HCl (Desyrel) 100 mg QHSP PRN PO INSOMNIA 06/27/19 15:45 SABRINA LOCKETT MD Jun 28, 2019 12:22
[2019-06-28 14:00] VITALS: BP 132/62
--- NOTE | 2019-06-28 14:09 | IPNPDOC ---
Text Note Date of Service The patient was seen on 06/28/19. NOTE Subjective: Patient is a 68-year-old male with a PMHx of PVD, DM2, DLP, Insomnia, Smoker, CVA x3, PTSD who presented to the ER with complaints of "right leg is ." Patient was found to have gangrene of his right foot and was ultimately scheduled for a right [id number] amputation with Dr. Salmon. Patient was ultimately transition to acute rehabilitation unit on 06/27/2019 for continued PT / OT under the care of Dr. Winter. Patient was seen and examined at the bedside. Currently, patient was seen working with physical therapy. He reports he is having some discomfort of his right lower extremity surgical site. Patient denies any nausea, vomiting, chest pain, shortness of breath, palpitations, constipation, diarrhea, or urinary disc omfort. Objective: Vitals (See below) General: Lying in bed, no acute distress, comfortable, AAOx3 HEENT: NC, AT CVS: +S1S2 Lungs: Fair air entry b/l, no appreciable wheezing, rhonchi or rales Abdomen: Soft, ND, NT Extremities: R AKA - dressing in place, - Calf tenderness Assessment and plan: Right foot gangrene - likely 2/2 arterial insufficiency - s/p R leg AKA on 06/24/2019 - s/p 7 days of Zosyn - Pain control and physical therapy as per ARU s/p Lactic acidosis PVD - c/w ASA DM2 - c/w ISS and Levemir - c/w consistent carbohydrate diet HTN - BP appears well controlled - c/w Lisinopril DLP - c/w Atorvastatin Neuropathy - c/w Gabapentin Insomnia / PTSD / Anxiety - c/w Trazodone, Diazepam GI prophylaxis - c/w Protonix DVT prophylaxis - c/w Lovenox Disposition: - Pending OT/PT progression VS,Parthbone, I+O VS, Fishbone, I+O Laboratory Tests 06/28/19 07:03 Vital Signs Date Time Temp Pulse Resp B/P (MAP) Pulse Ox O2 Delivery O2 Flow Rate FiO2 06/28/19 13:24 18 06/28/19 06:00 98.8 57 140/60 (86) 97 Room Air I&O- Last 24 Hours up to 6 AM 06/28/19 06:00 Intake Total 120 ml Output Total 1225 ml Balance -1105 ml ROMELIA FRANCIS MD Jun 28, 2019 14:08
--- NOTE | 2019-06-28 15:34 | IPNPDOC ---
Text Note Date of Service The patient was seen on 06/28/19. NOTE Vascular surgery. Dr. Salmon The patient is a 68-year-old male with history of PAD S/P Rt AKA as per Dr. Salmon. The patient is currently resting in bed. States pain is controlled. Dressing remains intact over the right AKA. The patient remains afebrile. White blood cell count 10.1, hemoglobin 11.1. The patient's dressing is in place currently, changed today as per Dr Winter. Continue with dressing changes. Continue broad-spectrum antibiotics. Continue pain control. Continue with elevation of right lower extremity Continue to encourage high protein diet to facilitate healing. Continue to closely monitor. PT/OT as per ARU. VS,Fishbone, I+O VS, Fishbone, I+O Laboratory Tests 06/28/19 07:03 Vital Signs Date Time Temp Pulse Resp B/P (MAP) Pulse Ox O2 Delivery O2 Flow Rate FiO2 06/28/19 14:00 97.6 61 16 132/62 (85) 97 Room Air I&O- Last 24 Hours up to 6 AM 06/28/19 05:59 Intake Total 120 ml Output Total 425 ml Balance -305 ml Amara Hawkins Jun 28, 2019 15:34
[2019-06-28 20:00] VITALS: BP 144/65
[2019-06-28] MEDS: diazePAM 5 MG TAB PO PRN (20:08)
[2019-06-28] MEDS: SENNA 8.6 MG TAB (SENOKOT) PO SCH (20:10)
[2019-06-28] MEDS: ATORVASTATIN 20 MG TAB PO SCH (20:10)
[2019-06-29] MEDS ORDERED: oxyCODONE 5MG TAB PO PRN
[2019-06-29 06:00] VITALS: BP 141/65
[2019-06-29] MEDS: DOCUSATE SODIUM 100 MG CAP PO SCH ×2 (08:10→21:03)
[2019-06-29] MEDS: ACETAMINOPHEN 500 MG TAB PO SCH ×3 (08:10→21:04)
[2019-06-29] MEDS: ASPIRIN 81 MG ENTERIC TAB PO SCH (08:10)
[2019-06-29] MEDS: lisinopriL 10 MG TAB PO SCH ×2 (08:10→21:04)
[2019-06-29] MEDS: PANTOPRAZOLE 40MG TAB (PROTONIX) PO SCH (08:10)
[2019-06-29] MEDS: HumaLOG INSULIN (NovoLOG) PER UNIT SC SCH ×4 (08:11→21:00)
[2019-06-29] MEDS: GABAPENTIN 100 MG CAP PO SCH ×2 (08:11→15:13)
[2019-06-29] MEDS: ENOXAPARIN 40 MG/0.4 ML SYRINGE (J1650) SC SCH (08:11)
[2019-06-29] MEDS: LEVEMIR (INSULIN DETEMIR) 1 UNITS/0.01ML SC SCH ×2 (08:11→21:05)
[2019-06-29 08:37] LABS: BASO # 0.1 10^3/uL (0.0-0.2); BASO % 0.9 % (0.0-1.0); EOS # 0.3 10^3/uL (0.0-0.5); EOS % 2.5 % (0.0-3.0); HEMATOCRIT 39.8 % (42.0-52.0); HEMOGLOBIN 12.3 g/dl (13.5-17.5); LYMPH # 1.3 10^3/uL (1.5-5.0); LYMPH % 10.7 % (24.0-44.0); MEAN CORPUSCULAR HEMOGLOBIN 26.7 pg (27.0-33.0); MEAN CORPUSCULAR HGB CONC 30.9 g/dl (32.0-36.5); MEAN CORPUSCULAR VOLUME 86.3 fl (80.0-96.0); MONO # 0.8 10^3/uL (0.0-0.8); MONO % 6.5 % (0.0-5.0); NEUTROPHILS # 9.4 10^3/uL (1.5-8.5); PLATELET COUNT, AUTOMATED 522 10^3/uL (150-450); RED BLOOD COUNT 4.61 10^6/uL (4.30-6.10)
[2019-06-29 09:00] LABS: BLOOD UREA NITROGEN 12 MG/DL (7-18); C REACTIVE PROTEIN QUANTITATIV 0.58 MG/DL (0.00-0.30); CALCIUM LEVEL 9.1 MG/DL (8.8-10.2); CARBON DIOXIDE LEVEL 25 MEQ/L (21-32); CHLORIDE LEVEL 108 MEQ/L (98-107); CREATININE FOR GFR 0.87 MG/DL (0.70-1.30); GLOMERULAR FILTRATION RATE > 60.0 (>49); GLUCOSE, FASTING 207 MG/DL (70-100); SODIUM LEVEL 139 MEQ/L (136-145)
[2019-06-29] MEDS: oxyCODONE 5MG TAB PO SCH ×4 (09:00→21:03)
--- NOTE | 2019-06-29 10:53 | IPNPDOC ---
Text Note Date of Service The patient was seen on 06/29/19. NOTE Vascular surgery. Dr. Salmon The patient is a 68-year-old male with history of PAD S/P Rt AKA as per Dr. Salmon, currently on ARU under the care of Dr. Winter. The patient is currently out of bed in the gym participate in with therapy, seems to be in bright spirits and reports pain is controlled. Dressing remains intact over the right AKA. The patient remains afebrile. A.m. labs with hemoglobin 12.3, WBC 12.0. The patient's dressing is in place currently. Continue with dressing changes as per ARU. Continue pain control. Continue statin. Continue with elevation of right lower extremity Continue to encourage high protein diet to facilitate healing. Continue to closely monitor. PT/OT as per ARU. VS,Fishbone, I+O VS, Fishbone, I+O Laboratory Tests 06/29/19 08:23 Vital Signs Date Time Temp Pulse Resp B/P (MAP) Pulse Ox O2 Delivery O2 Flow Rate FiO2 06/29/19 09:00 18 06/29/19 08:10 141/65 06/29/19 06:00 97.1 57 97 Room Air I&O- Last 24 Hours up to 6 AM0 06/29/19 05:59 Intake Total 1070 ml Output Total 1800 ml Balance -730 ml Amara Hawkins Jun 29, 2019 10:53
--- NOTE | 2019-06-29 11:01 | IPNPDOC ---
PM&R Progress Note DATE OF SERVICE: Jun 29, 2019 Health Unit Coordinator Progress Note Subjective: Patient stating he did not sleep well last night, but that he got his pain medication this morning and it is helping. REVIEW OF SYSTEMS: The following is a completed review of systems and has been reviewed. Review of systems otherwise unremarkable. PAIN: Patient self reports right residual limb pain EYES: No recent vision changes EARS, NOSE, & THROAT: No throat pain, or dysphagia, or rhinorrhea CARDIOVASCULAR: Denies chest pain or palpitations PULMONARY: Denies shortness of breath GASTROINTESTINAL: Denies constipation/diarrhea GENITOURINARY: denies dysuria MUSCULOSKELETAL: right AKA NEUROLOGICAL:+peripheral polyneuropathy HEMATOLOGICAL: denies easy bruising SKIN: right AKA incision PSYCHIATRIC: Unremarkable All other review of systems found to be negative. PHYSICAL EXAMINATION: VITAL SIGNS: Please see below. GENERAL: Pleasant and cooperative. No acute distress. thin HEENT: PERRL. Extraocular movements intact. Clear conjunctiva CARDIOVASCULAR: Regular rate and rhythm. No murmurs, rubs, or gallops LUNGS: Clear to auscultation bilaterally. No wheezes. No rhonchi ABDOMEN: Soft, nontender, nondistended. Positive bowel sounds. Normal active bowel sounds NEUROLOGICAL: Alert and oriented times three. Cranial nerves II through XII grossly intact. Sensation diminished left lower extremity in stocking pattern EXTREMITIES: 5\5 strength bilateral upper extremities. 5\5 strength right hip flexion. 5/5 strength in left lower extremity. SKIN: right AKA incision, c/d/i no carlos eduardo-incision maceration or drainage ASSESSMENT:68-year-old M with past medical history of PVD who presents status post right AKA. PLAN: 1. Rehab- PT advance gait training, limb care, maintain ROM of right hip, incorporate prone position for hip extension OT- advance ADL, maintain rom/strength/stretch bilat UE, scapular stabilization 2. Neuro: peripheral polyneuropathy- optimize diabetic control -hx of 3 CVAs, c/u ASA and statin therapy 3. Vasc: s/p right AKA 06-24-19, vasc consulted, s/p course of Zosyn 4. Cardiac- recent ECHO no systolic/diastolic CHF -HTN- c/u lisinopril -medicine consulted to assist in management 5. Resp: encourage incentive spirometry, monitor for infection -educate on smoking cessation 6. GI ppx: protonix 7. DVT ppx: lovenox 8. Pain: tylenol, gabapentin, oxycodone changed to standing -will icnrease evening gabapentin dosing to assist with pain at night 9. Psych: PTSD c/u Xanax prn, trazodone for insomnia 10. Dispo: TBD Allergies Coded Allergies: ibuprofen (Verified Allergy, Severe, TROUBLE BREATHING, 04/04/19) strawberry (Verified Allergy, Severe, THROAT SWELLING, 04/04/19) Vital Signs Vital Signs Date Time Temp Pulse Resp B/P (MAP) Pulse Ox O2 Delivery O2 Flow Rate FiO2 06/29/19 09:30 18 06/29/19 08:10 141/65 06/29/19 06:00 97.1 57 97 Room Air Laboratory Data CBC/BMP Laboratory Tests 06/29/19 08:23 Labs 24H Laboratory Tests 2 06/28/19 11:58: Bedside Glucose (Misc Panel) 178H 06/28/19 16:45: Bedside Glucose (Misc Panel) 161H 06/28/19 20:09: Bedside Glucose (Misc Panel) 153H 06/29/19 06:12: Bedside Glucose (Misc Panel) 129H 06/29/19 08:23: Immature Granulocyte % (Auto) 1.4, Neutrophils (%) (Auto) 78.0H, Lymphocytes (%) (Auto) 10.7L, Monocytes (%) (Auto) 6.5H, Eosinophils (%) (Auto) 2.5, Basophils (%) (Auto) 0.9, Neutrophils # (Auto) 9.4H, Lymphocytes # (Auto) 1.3L, Monocytes # (Auto) 0.8, Eosinophils # (Auto) 0.3, Basophils # (Auto) 0.1, Nucleated Red Blood Cells % (auto) 0.0, Anion Gap 6L, Glomerular Filtration Rate > 60.0, Calcium Level 9.1, C-Reactive Protein, Quantitative 0.58H Current Medications Current Medications Current Medications Medications (Trade) Dose Ordered Sig/Jess Route PRN Reason Start Time Stop Time Status Last Admin Dose Admin Acetaminophen (Tylenol Tab) 1,000 mg TID PO 06/27/19 16:00 06/29/19 08:10 Aspirin (Ecotrin) 81 mg DAILY PO 06/28/19 09:00 06/29/19 08:10 Atorvastatin Calcium (Lipitor) 80 mg QHS PO 06/27/19 21:00 06/28/19 20:10 Dextrose (Dextrose 50%) 25 ml ASDIRECTED PRN IV SEE LABEL COMMENTS 06/27/19 15:45 Diazepam (Valium) 2.5 mg Q8HP PRN PO SPASMS 06/27/19 15:45 06/28/19 20:08 Docusate Sodium (Colace) 100 mg BID PO 06/27/19 21:00 06/29/19 08:10 Enoxaparin Sodium (Lovenox) 40 mg DAILY SC 06/28/19 09:00 06/29/19 08:11 Gabapentin (Neurontin) 100 mg QHS PO 06/27/19 21:00 06/27/19 16:34 DC Gabapentin (Neurontin) 100 mg TID PO 06/27/19 21:00 06/29/19 08:11 Glucagon (Glucagon) 1 mg ASDIRECTED PRN SC SEE LABEL COMMENTS 06/27/19 15:45 Glucose (Glucose) 16 GM ASDIRECTED PRN PO SEE LABEL COMMENTS 06/27/19 15:45 Insulin Detemir (Levemir Insulin) 12 units BID SC 06/27/19 21:00 06/29/19 08:11 Insulin Human Lispro (HumaLOG INSULIN) SEE PROTOCOL TABLE AC SC 06/27/19 17:30 06/29/19 08:11 Insulin Human Lispro (HumaLOG INSULIN) SEE PROTOCOL TABLE QHS SC 06/27/19 21:00 Lisinopril (Prinivil) 10 mg BID PO 06/27/19 21:00 06/29/19 08:10 Magnesium Hydroxide (Milk Of Magnesia) 30 ml DAILYPRN PRN PO CONSTIPATION 06/27/19 15:45 Nystatin (Mycostatin Powder, Nystop) top of left foot DAILY TOP 06/28/19 09:00 06/28/19 10:51 DC Oxycodone HCl (Roxicodone, Oxyir) 5 mg 0800,1200,1600,2000 PO 06/29/19 08:00 06/29/19 09:00 Oxycodone HCl (Roxicodone, Oxyir) 5 mg Q4HP PRN PO PAIN 06/27/19 15:45 06/29/19 08:30 DC 06/28/19 21:44 Oxycodone HCl (Roxicodone, Oxyir) 5 mg QHS PRN PO PAIN 06/29/19 00:00 Pantoprazole Sodium (Protonix) 40 mg DAILY PO 06/28/19 09:00 06/29/19 08:10 Senna (Senokot) 1 tab QHS PO 06/27/19 21:00 06/28/19 20:10 Trazodone HCl (Desyrel) 100 mg QHSP PRN PO INSOMNIA 06/27/19 15:45 SABRINA LOCKETT MD Jun 29, 2019 11:01
[2019-06-29 14:00] VITALS: BP 134/58
[2019-06-29 20:00] VITALS: BP 139/64
[2019-06-29] MEDS: GABAPENTIN 300 MG CAP PO SCH (21:04)
[2019-06-29] MEDS: SENNA 8.6 MG TAB (SENOKOT) PO SCH (21:04)
[2019-06-29] MEDS: ATORVASTATIN 20 MG TAB PO SCH (21:05)
[2019-06-30 06:00] VITALS: BP 140/63
[2019-06-30 07:06] LABS: BASO # 0.1 10^3/uL (0.0-0.2); BASO % 0.9 % (0.0-1.0); EOS # 0.3 10^3/uL (0.0-0.5); EOS % 3.1 % (0.0-3.0); HEMOGLOBIN 11.6 g/dl (13.5-17.5); LYMPH # 1.6 10^3/uL (1.5-5.0); LYMPH % 17.2 % (24.0-44.0); MEAN CORPUSCULAR HEMOGLOBIN 26.7 pg (27.0-33.0); MEAN CORPUSCULAR HGB CONC 30.5 g/dl (32.0-36.5); MEAN CORPUSCULAR VOLUME 87.4 fl (80.0-96.0); MONO # 1.1 10^3/uL (0.0-0.8); MONO % 11.2 % (0.0-5.0); NEUTROPHILS # 6.3 10^3/uL (1.5-8.5); NEUTROPHILS % 65.7 % (36.0-66.0); PLATELET COUNT, AUTOMATED 507 10^3/uL (150-450); RED BLOOD COUNT 4.35 10^6/uL (4.30-6.10); WHITE BLOOD COUNT 9.5 10^3/uL (4.0-10.0)
[2019-06-30 07:36] LABS: BLOOD UREA NITROGEN 11 MG/DL (7-18); C REACTIVE PROTEIN QUANTITATIV < 0.30 MG/DL (0.00-0.30); CALCIUM LEVEL 9.4 MG/DL (8.8-10.2); CARBON DIOXIDE LEVEL 30 MEQ/L (21-32); CHLORIDE LEVEL 105 MEQ/L (98-107); CREATININE FOR GFR 0.85 MG/DL (0.70-1.30); GLOMERULAR FILTRATION RATE > 60.0 (>49); GLUCOSE, FASTING 139 MG/DL (70-100); POTASSIUM SERUM 4.1 MEQ/L (3.5-5.1); SODIUM LEVEL 139 MEQ/L (136-145)
[2019-06-30] MEDS: HumaLOG INSULIN (NovoLOG) PER UNIT SC SCH ×4 (08:20→21:00)
[2019-06-30] MEDS: LEVEMIR (INSULIN DETEMIR) 1 UNITS/0.01ML SC SCH ×2 (08:21→20:59)
[2019-06-30] MEDS: ENOXAPARIN 40 MG/0.4 ML SYRINGE (J1650) SC SCH (08:22)
[2019-06-30] MEDS: PANTOPRAZOLE 40MG TAB (PROTONIX) PO SCH (08:23)
[2019-06-30] MEDS: ACETAMINOPHEN 500 MG TAB PO SCH ×3 (08:23→20:57)
[2019-06-30] MEDS: GABAPENTIN 100 MG CAP PO SCH ×2 (08:23→16:41)
[2019-06-30] MEDS: DOCUSATE SODIUM 100 MG CAP PO SCH ×2 (08:23→20:57)
[2019-06-30] MEDS: ASPIRIN 81 MG ENTERIC TAB PO SCH (08:24)
[2019-06-30] MEDS: lisinopriL 10 MG TAB PO SCH ×2 (08:24→20:58)
[2019-06-30] MEDS: oxyCODONE 5MG TAB PO SCH ×4 (08:25→20:58)
--- NOTE | 2019-06-30 09:56 | IPNPDOC ---
Text Note Date of Service The patient was seen on 06/30/19. NOTE Subjective: Patient is a 68-year-old male with a PMHx of PVD, DM2, DLP, Insomnia, Smoker, CVA x3, PTSD who presented to the ER with complaints of "right leg is ." Patient was found to have gangrene of his right foot and was ultimately scheduled for a right [id number] amputation with Dr. Salmon. Patient was ultimately transition to acute rehabilitation unit on 06/27/2019 for continued PT / OT under the care of Dr. Winter. Patient was seen and examined at the bedside. Patient reports that he has been with physical therapy and has been progressing. He denies any nausea, vomiting, abdominal pain, constipation, diarrhea or urinary discomfort. Objective: Vitals (See below) General: Lying in bed, no acute distress, comfortable, AAOx3 HEENT: NC, AT CVS: +S1S2 Lungs: Fair air entry b/l, auscultation without rhonchi, rales or wheezing Abdomen: Soft, nondistended, nontender Extremities: R AKA - dressing in place, - Calf tenderness at left leg Assessment and plan: Right foot gangrene - likely 2/2 arterial insufficiency - s/p R leg AKA on 06/24/2019 - s/p 7 days of Zosyn - Pain control and physical therapy as per ARU s/p Lactic acidosis PVD - c/w ASA DM2 - c/w ISS and Levemir - c/w consistent carbohydrate diet HTN - BP appears well controlled - c/w Lisinopril DLP - c/w Atorvastatin Neuropathy - c/w Gabapentin Insomnia / PTSD / Anxiety - c/w Trazodone, Diazepam GI prophylaxis - c/w Protonix DVT prophylaxis - c/w Lovenox Disposition: - Pending OT/PT progression; has been progressing VS,Fishbone, I+O VS, Fishbone, I+O Laboratory Tests 06/30/19 06:32 Vital Signs Date Time Temp Pulse Resp B/P (MAP) Pulse Ox O2 Delivery O2 Flow Rate FiO2 06/30/19 08:25 16 06/30/19 08:24 164/86 06/30/19 06:00 98.8 67 98 Room Air I&O- Last 24 Hours up to 6 AM 06/30/19 06:00 Intake Total 920 ml Output Total 1400 ml Balance -480 ml ROMELIA FRANCIS MD Jun 30, 2019 09:56
--- NOTE | 2019-06-30 11:05 | IPNPDOC ---
PM&R Progress Note DATE OF SERVICE: Jun 30, 2019 Topographical Engineer Progress Note Subjective: Patient reporting he slept better last night with the increased gabapentin dosing. REVIEW OF SYSTEMS: The following is a completed review of systems and has been reviewed. Review of systems otherwise unremarkable. PAIN: Patient self reports right residual limb pain EYES: No recent vision changes EARS, NOSE, & THROAT: No throat pain, or dysphagia, or rhinorrhea CARDIOVASCULAR: Denies chest pain or palpitations PULMONARY: Denies shortness of breath GASTROINTESTINAL: Denies constipation/diarrhea GENITOURINARY: denies dysuria MUSCULOSKELETAL: right AKA NEUROLOGICAL:+peripheral polyneuropathy HEMATOLOGICAL: denies easy bruising SKIN: right AKA incision PSYCHIATRIC: Unremarkable All other review of systems found to be negative. PHYSICAL EXAMINATION: VITAL SIGNS: Please see below. GENERAL: Pleasant and cooperative. No acute distress. thin HEENT: PERRL. Extraocular movements intact. Clear conjunctiva CARDIOVASCULAR: Regular rate and rhythm. No murmurs, rubs, or gallops LUNGS: Clear to auscultation bilaterally. No wheezes. No rhonchi ABDOMEN: Soft, nontender, nondistended. Positive bowel sounds. Normal active bowel sounds NEUROLOGICAL: Alert and oriented times three. Cranial nerves II through XII grossly intact. Sensation diminished left lower extremity in stocking pattern EXTREMITIES: 5\5 strength bilateral upper extremities. 5\5 strength right hip flexion. 5/5 strength in left lower extremity. SKIN: right AKA incision, c/d/i no carlos eduardo-incision maceration or drainage ASSESSMENT:68-year-old M with past medical history of PVD who presents status post right AKA. PLAN: 1. Rehab- PT advance gait training, limb care, maintain ROM of right hip, incorporate prone position for hip extension OT- advance ADL, maintain rom/strength/stretch bilat UE, scapular stabilization 2. Neuro: peripheral polyneuropathy- optimize diabetic control -hx of 3 CVAs, c/u ASA and statin therapy 3. Vasc: s/p right AKA 06-24-19, vasc consulted, s/p course of Zosyn- CRP trending down and leukocytosis resolved 4. Cardiac- recent ECHO no systolic/diastolic CHF -HTN- c/u lisinopril -medicine consulted to assist in management 5. Resp: encourage incentive spirometry, monitor for infection -educate on smoking cessation 6. GI ppx: protonix 7. DVT ppx: lovenox 8. Pain: tylenol, gabapentin, oxycodone 9. Psych: PTSD c/u Xanax prn, trazodone for insomnia 10. Dispo: TBD Allergies Coded Allergies: ibuprofen (Verified Allergy, Severe, TROUBLE BREATHING, 04/04/19) strawberry (Verified Allergy, Severe, THROAT SWELLING, 04/04/19) Vital Signs Vital Signs Date Time Temp Pulse Resp B/P (MAP) Pulse Ox O2 Delivery O2 Flow Rate FiO2 06/30/19 08:55 18 06/30/19 08:24 164/86 06/30/19 06:00 98.8 67 98 Room Air Laboratory Data CBC/BMP Laboratory Tests 06/30/19 06:32 Labs 24H Laboratory Tests 2 06/29/19 11:54: Bedside Glucose (Misc Panel) 193H 06/29/19 16:36: Bedside Glucose (Misc Panel) 130H 06/29/19 20:04: Bedside Glucose (Misc Panel) 142H 06/30/19 06:32: Immature Granulocyte % (Auto) 1.9, Neutrophils (%) (Auto) 65.7, Lymphocytes (%) (Auto) 17.2L, Monocytes (%) (Auto) 11.2H, Eosinophils (%) (Auto) 3.1H, Basophils (%) (Auto) 0.9, Neutrophils # (Auto) 6.3, Lymphocytes # (Auto) 1.6, Monocytes # (Auto) 1.1H, Eosinophils # (Auto) 0.3, Basophils # (Auto) 0.1, Nucleated Red Blood Cells % (auto) 0.0, Anion Gap 4L, Glomerular Filtration Rate > 60.0, Calcium Level 9.4, C-Reactive Protein, Quantitative < 0.30 Current Medications Current Medications Current Medications Medications (Trade) Dose Ordered Sig/Jess Route PRN Reason Start Time Stop Time Status Last Admin Dose Admin Acetaminophen (Tylenol Tab) 1,000 mg TID PO 06/27/19 16:00 06/30/19 08:23 Aspirin (Ecotrin) 81 mg DAILY PO 06/28/19 09:00 06/30/19 08:24 Atorvastatin Calcium (Lipitor) 80 mg QHS PO 06/27/19 21:00 06/29/19 21:05 Dextrose (Dextrose 50%) 25 ml ASDIRECTED PRN IV SEE LABEL COMMENTS 06/27/19 15:45 Diazepam (Valium) 2.5 mg Q8HP PRN PO SPASMS 06/27/19 15:45 06/28/19 20:08 Docusate Sodium (Colace) 100 mg BID PO 06/27/19 21:00 06/30/19 08:23 Enoxaparin Sodium (Lovenox) 40 mg DAILY SC 06/28/19 09:00 06/30/19 08:22 Gabapentin (Neurontin) 100 mg QHS PO 06/27/19 21:00 06/27/19 16:34 DC Gabapentin (Neurontin) 100 mg TID PO 06/27/19 21:00 06/29/19 11:03 DC 06/29/19 08:11 Gabapentin (Neurontin) 200 mg BID@0900,1500 PO 06/29/19 15:00 06/30/19 08:23 Gabapentin (Neurontin) 300 mg QHS PO 06/29/19 21:00 06/29/19 21:04 Glucagon (Glucagon) 1 mg ASDIRECTED PRN SC SEE LABEL COMMENTS 06/27/19 15:45 Glucose (Glucose) 16 GM ASDIRECTED PRN PO SEE LABEL COMMENTS 06/27/19 15:45 Insulin Detemir (Levemir Insulin) 12 units BID SC 06/27/19 21:00 06/29/19 15:32 DC 06/29/19 08:11 Insulin Detemir (Levemir Insulin) 14 units BID SC 06/29/19 21:00 06/30/19 08:21 Insulin Human Lispro (HumaLOG INSULIN) SEE PROTOCOL TABLE AC SC 06/27/19 17:30 06/30/19 08:20 Insulin Human Lispro (HumaLOG INSULIN) SEE PROTOCOL TABLE QHS SC 06/27/19 21:00 Lisinopril (Prinivil) 10 mg BID PO 06/27/19 21:00 06/30/19 08:24 Magnesium Hydroxide (Milk Of Magnesia) 30 ml DAILYPRN PRN PO CONSTIPATION 06/27/19 15:45 Nystatin (Mycostatin Powder, Nystop) top of left foot DAILY TOP 06/28/19 09:00 06/28/19 10:51 DC Oxycodone HCl (Roxicodone, Oxyir) 5 mg 0800,1200,1600,2000 PO 06/29/19 08:00 06/30/19 08:25 Oxycodone HCl (Roxicodone, Oxyir) 5 mg Q4HP PRN PO PAIN 06/27/19 15:45 06/29/19 08:30 DC 06/28/19 21:44 Oxycodone HCl (Roxicodone, Oxyir) 5 mg QHS PRN PO PAIN 06/29/19 00:00 Pantoprazole Sodium (Protonix) 40 mg DAILY PO 06/28/19 09:00 06/30/19 08:23 Senna (Senokot) 1 tab QHS PO 06/27/19 21:00 06/29/19 21:04 Trazodone HCl (Desyrel) 100 mg QHSP PRN PO INSOMNIA 06/27/19 15:45 SABRINA LOCKETT MD Jun 30, 2019 11:05
[2019-06-30 14:00] VITALS: BP 108/50
[2019-06-30 20:00] VITALS: BP 138/62
[2019-06-30] MEDS: ATORVASTATIN 20 MG TAB PO SCH (20:56)
[2019-06-30] MEDS: SENNA 8.6 MG TAB (SENOKOT) PO SCH (20:57)
[2019-06-30] MEDS: GABAPENTIN 300 MG CAP PO SCH (20:57)
[2019-07-01 06:15] VITALS: BP 133/61
[2019-07-01] MEDS: HumaLOG INSULIN (NovoLOG) PER UNIT SC SCH ×4 (08:18→20:51)
[2019-07-01] MEDS: LEVEMIR (INSULIN DETEMIR) 1 UNITS/0.01ML SC SCH (08:18)
[2019-07-01] MEDS: ENOXAPARIN 40 MG/0.4 ML SYRINGE (J1650) SC SCH (08:20)
[2019-07-01] MEDS: DOCUSATE SODIUM 100 MG CAP PO SCH ×2 (08:21→20:59)
[2019-07-01] MEDS: ACETAMINOPHEN 500 MG TAB PO SCH ×3 (08:21→20:58)
[2019-07-01] MEDS: GABAPENTIN 100 MG CAP PO SCH (08:22)
[2019-07-01] MEDS: oxyCODONE 5MG TAB PO SCH ×4 (08:22→20:57)
[2019-07-01] MEDS: PANTOPRAZOLE 40MG TAB (PROTONIX) PO SCH (08:23)
[2019-07-01] MEDS: ASPIRIN 81 MG ENTERIC TAB PO SCH (08:23)
[2019-07-01] MEDS: lisinopriL 10 MG TAB PO SCH ×2 (08:23→20:58)
--- NOTE | 2019-07-01 10:23 | IPNPDOC ---
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 REVIEW OF SYSTEMS: The following is a completed review of systems and has been reviewed. Review of systems otherwise unremarkable. PAIN: Patient self reports right residual limb pain EYES: No recent vision changes EARS, NOSE, & THROAT: No throat pain, or dysphagia, or rhinorrhea CARDIOVASCULAR: Denies chest pain or palpitations PULMONARY: Denies shortness of breath GASTROINTESTINAL: Denies constipation/diarrhea GENITOURINARY: denies dysuria MUSCULOSKELETAL: right AKA NEUROLOGICAL:+peripheral polyneuropathy HEMATOLOGICAL: denies easy bruising SKIN: right AKA incision PSYCHIATRIC: Unremarkable All other review of systems found to be negative. PHYSICAL EXAMINATION: VITAL SIGNS: Please see below. GENERAL: Pleasant and cooperative. No acute distress. thin HEENT: PERRL. Extraocular movements intact. Clear conjunctiva CARDIOVASCULAR: Regular rate and rhythm. No murmurs, rubs, or gallops LUNGS: Clear to auscultation bilaterally. No wheezes. No rhonchi ABDOMEN: Soft, nontender, nondistended. Positive bowel sounds. Normal active bowel sounds NEUROLOGICAL: Alert and oriented times three. Cranial nerves II through XII grossly intact. Sensation diminished left lower extremity in stocking pattern EXTREMITIES: 5\5 strength bilateral upper extremities. 5\5 strength right hip flexion. 5/5 strength in left lower extremity. SKIN: right AKA incision, c/d/i no carlos eduardo-incision maceration or drainage ASSESSMENT:68-year-old M with past medical history of PVD who presents status post right AKA. PLAN: 1. Rehab- PT advance gait training, limb care, maintain ROM of right hip, incorporate prone position for hip extension OT- advance ADL, maintain rom/strength/stretch bilat UE, scapular stabilization 2. Neuro: peripheral polyneuropathy- optimize diabetic control -hx of 3 CVAs, c/u ASA and statin therapy 3. Vasc: s/p right AKA 06-24-19, vasc consulted, s/p course of Zosyn- CRP WNL and leukocytosis resolved 4. Cardiac- recent ECHO no systolic/diastolic CHF -HTN- c/u lisinopril -medicine consulted to assist in management 5. Resp: encourage incentive spirometry, monitor for infection -educate on smoking cessation 6. GI ppx: protonix 7. DVT ppx: lovenox 8. Pain: tylenol, gabapentin, oxycodone 9. Psych: PTSD c/u Xanax prn, trazodone for insomnia 10. Endo: patient has been on long acting insulin and ISS, will cahneg to metformin 500 bid and ISS with goal to d/c insulin prior to discharge as patient stating he will not self-administer once he is home 10. Dispo: TBD Allergies Coded Allergies: ibuprofen (Verified Allergy, Severe, TROUBLE BREATHING, 04/04/19) strawberry (Verified Allergy, Severe, THROAT SWELLING, 04/04/19) Vital Signs Vital Signs Date Time Temp Pulse Resp B/P (MAP) Pulse Ox O2 Delivery O2 Flow Rate FiO2 07/01/19 08:23 128/68 07/01/19 08:22 18 Room Air 07/01/19 06:15 99.0 68 98 Laboratory Data Labs 24H Laboratory Tests 2 06/30/19 12:33: Bedside Glucose (Misc Panel) 171H 06/30/19 17:09: Bedside Glucose (Misc Panel) 139H 06/30/19 20:24: Bedside Glucose (Misc Panel) 169H 07/01/19 06:04: Bedside Glucose (Misc Panel) 117H Current Medications Current Medications Current Medications Medications (Trade) Dose Ordered Sig/Jess Route PRN Reason Start Time Stop Time Status Last Admin Dose Admin Acetaminophen (Tylenol Tab) 1,000 mg TID PO 06/27/19 16:00 07/01/19 08:21 Aspirin (Ecotrin) 81 mg DAILY PO 06/28/19 09:00 07/01/19 08:23 Atorvastatin Calcium (Lipitor) 80 mg QHS PO 06/27/19 21:00 06/30/19 20:56 Dextrose (Dextrose 50%) 25 ml ASDIRECTED PRN IV SEE LABEL COMMENTS 06/27/19 15:45 Diazepam (Valium) 2.5 mg Q8HP PRN PO SPASMS 06/27/19 15:45 06/28/19 20:08 Docusate Sodium (Colace) 100 mg BID PO 06/27/19 21:00 07/01/19 08:21 Enoxaparin Sodium (Lovenox) 40 mg DAILY SC 06/28/19 09:00 07/01/19 08:20 Gabapentin (Neurontin) 100 mg QHS PO 06/27/19 21:00 06/27/19 16:34 DC Gabapentin (Neurontin) 100 mg TID PO 06/27/19 21:00 06/29/19 11:03 DC 06/29/19 08:11 Gabapentin (Neurontin) 200 mg BID@0900,1500 PO 06/29/19 15:00 07/01/19 08:22 Gabapentin (Neurontin) 300 mg QHS PO 06/29/19 21:00 06/30/19 20:57 Glucagon (Glucagon) 1 mg ASDIRECTED PRN SC SEE LABEL COMMENTS 06/27/19 15:45 Glucose (Glucose) 16 GM ASDIRECTED PRN PO SEE LABEL COMMENTS 06/27/19 15:45 Insulin Detemir (Levemir Insulin) 12 units BID SC 06/27/19 21:00 06/29/19 15:32 DC 06/29/19 08:11 Insulin Detemir (Levemir Insulin) 14 units BID SC 06/29/19 21:00 07/01/19 08:18 Insulin Human Lispro (HumaLOG INSULIN) SEE PROTOCOL TABLE AC SC 06/27/19 17:30 07/01/19 08:18 Insulin Human Lispro (HumaLOG INSULIN) SEE PROTOCOL TABLE QHS SC 06/27/19 21:00 Lisinopril (Prinivil) 10 mg BID PO 06/27/19 21:00 07/01/19 08:23 Magnesium Hydroxide (Milk Of Magnesia) 30 ml DAILYPRN PRN PO CONSTIPATION 06/27/19 15:45 Nystatin (Mycostatin Powder, Nystop) top of left foot DAILY TOP 06/28/19 09:00 06/28/19 10:51 DC Oxycodone HCl (Roxicodone, Oxyir) 5 mg 0800,1200,1600,2000 PO 06/29/19 08:00 07/01/19 08:22 Oxycodone HCl (Roxicodone, Oxyir) 5 mg Q4HP PRN PO PAIN 06/27/19 15:45 06/29/19 08:30 DC 06/28/19 21:44 Oxycodone HCl (Roxicodone, Oxyir) 5 mg QHS PRN PO PAIN 06/29/19 00:00 Pantoprazole Sodium (Protonix) 40 mg DAILY PO 06/28/19 09:00 07/01/19 08:23 Senna (Senokot) 1 tab QHS PO 06/27/19 21:00 06/30/19 20:57 Trazodone HCl (Desyrel) 100 mg QHSP PRN PO INSOMNIA 06/27/19 15:45 SABRINA LOCKETT MD Jul 01, 2019 10:23
[2019-07-01] MEDS ORDERED: GLUCOSE 4 GM CHEW TABLET PO PRN (10:30)
[2019-07-01] MEDS ORDERED: GLUCAGON FOR INJ 1 MG VIAL (J1610) SC PRN (10:30)
[2019-07-01] MEDS ORDERED: DEXTROSE 50% 50 ML SYRINGE IV PRN (10:30)
--- NOTE | 2019-07-01 10:54 | IPNPDOC ---
Text Note Date of Service The patient was seen on 07/01/19. NOTE Vascular surgery. Dr. Salmon The patient is a 68-year-old male with history of PAD S/P Rt AKA as per Dr. Salmon, currently on ARU under the care of Dr. Winetr. The patient is currently getting OOB with OT, seems to be in good spirits. Dressing remains intact over the right AKA. The patient remains afebrile. labs 06/30 with hemoglobin 11.6 WBC 9.5. Continue with dressing changes as per ARU. Continue pain control. Continue statin. Continue with elevation of right lower extremity Continue to encourage high protein diet to facilitate healing. Continue to closely monitor. PT/OT as per ARU. VS,Fishbone, I+O VS, Fishbone, I+O Vital Signs Date Time Temp Pulse Resp B/P (MAP) Pulse Ox O2 Delivery O2 Flow Rate FiO2 07/01/19 08:23 128/68 07/01/19 08:22 18 Room Air 07/01/19 06:15 99.0 68 98 I&O- Last 24 Hours up to 6 AM 07/01/19 06:00 Intake Total 930 ml Output Total 625 ml Balance 305 ml Amara Hawkins Jul 01, 2019 10:53
[2019-07-01 11:30] VITALS: BP 94/48
[2019-07-01 11:50] VITALS: BP 115/51
[2019-07-01] MEDS ORDERED: SLF 3 ML SYR IV PRN (14:30)
[2019-07-01 14:45] VITALS: BP 95/50
[2019-07-01] MEDS: SLF 3 ML SYR IV SCH ×2 (15:05→22:24)
[2019-07-01] MEDS: NS 1,000 ML IV SCH (15:05)
[2019-07-01 15:40] VITALS: BP 118/52
[2019-07-01] MEDS: GABAPENTIN 300 MG CAP PO SCH ×2 (16:48→20:58)
[2019-07-01] MEDS: metFORMIN (GLUCOPHAGE) 500 MG TAB PO SCH (17:23)
[2019-07-01 20:15] VITALS: BP 111/49
[2019-07-01] MEDS: SENNA 8.6 MG TAB (SENOKOT) PO SCH (20:58)
[2019-07-01] MEDS: ATORVASTATIN 20 MG TAB PO SCH (20:59)
[2019-07-02] MEDS: NS 1,000 ML IV SCH (03:28)
[2019-07-02 05:36] VITALS: BP 141/64
[2019-07-02] MEDS: SLF 3 ML SYR IV SCH ×3 (05:39→20:17)
[2019-07-02] MEDS: DOCUSATE SODIUM 100 MG CAP PO SCH ×2 (07:30→20:15)
[2019-07-02] MEDS: ENOXAPARIN 40 MG/0.4 ML SYRINGE (J1650) SC SCH (07:30)
[2019-07-02] MEDS: lisinopriL 10 MG TAB PO SCH ×2 (07:30→20:15)
[2019-07-02] MEDS: GABAPENTIN 300 MG CAP PO SCH ×3 (07:30→20:16)
[2019-07-02] MEDS: oxyCODONE 5MG TAB PO SCH ×4 (07:30→20:15)
[2019-07-02] MEDS: ASPIRIN 81 MG ENTERIC TAB PO SCH (07:31)
[2019-07-02] MEDS: metFORMIN (GLUCOPHAGE) 500 MG TAB PO SCH ×2 (07:31→16:57)
[2019-07-02] MEDS: ACETAMINOPHEN 500 MG TAB PO SCH ×3 (07:31→20:16)
[2019-07-02] MEDS: PANTOPRAZOLE 40MG TAB (PROTONIX) PO SCH (07:31)
[2019-07-02] MEDS: HumaLOG INSULIN (NovoLOG) PER UNIT SC SCH ×4 (07:31→20:06)
--- NOTE | 2019-07-02 08:18 | IPNPDOC ---
Text Note Date of Service The patient was seen on 07/02/19. NOTE Subjective: Patient is a 68-year-old male with a PMHx of PVD, DM2, DLP, Insomnia, Smoker, CVA x3, PTSD who presented to the ER with complaints of "right leg is ." Patient was found to have gangrene of his right foot and was ultimately scheduled for a right [id number] amputation with Dr. Salmon. Patient was ultimately transition to acute rehabilitation unit on 06/27/2019 for continued PT / OT under the care of Dr. Winter. Patient was seen and examined at the bedside. Patient reports that his dizziness that he was experiencing yesterday has resolved. He denies any nausea, vomiting, abdominal pain, diarrhea or discomfort with urination. Patient has been working with physical therapy has been progressing. Objective: Vitals (See below) General: Lying in bed, no acute distress, comfortable, AAOx3 HEENT: NC, AT CVS: +S1S2 Lungs: Air entry is fair bilaterally without evidence of rhonchi, rales or wheezing Abdomen: Remains soft, without any distention or tenderness Extremities: R AKA - dressing intact / clean, - Calf tenderness at left leg Assessment and plan: Right foot gangrene - likely 2/2 arterial insufficiency - s/p R leg AKA on 06/24/2019 - s/p 7 days of Zosyn - Pain control and physical therapy as per ARU - Patient has been progressing with physical therapy s/p Lactic acidosis PVD - c/w ASA DM2 - c/w ISS and Levemir - c/w consistent carbohydrate diet HTN - BP appears well controlled - c/w Lisinopril DLP - c/w Atorvastatin Neuropathy - c/w Gabapentin Insomnia / PTSD / Anxiety - c/w Trazodone, Diazepam GI prophylaxis - c/w Protonix DVT prophylaxis - c/w Lovenox Disposition: - Patient is estimated date of departure is early July Percy BUENO, I+O Percy BUENO I+O Vital Signs Date Time Temp Pulse Resp B/P (MAP) Pulse Ox O2 Delivery O2 Flow Rate FiO2 07/02/19 07:30 16 07/02/19 07:30 141/64 07/02/19 05:36 97.8 61 98 Room Air I&O- Last 24 Hours up to 6 AM 07/02/19 06:00 Intake Total 1920 ml Output Total 1300 ml Balance 620 ml ROMELIA FRANCIS MD Jul 02, 2019 08:18
[2019-07-02 14:00] VITALS: BP 136/60
[2019-07-02 19:50] VITALS: BP 132/60
[2019-07-02] MEDS: SENNA 8.6 MG TAB (SENOKOT) PO SCH (20:15)
[2019-07-02] MEDS: ATORVASTATIN 20 MG TAB PO SCH (20:16)
[2019-07-03] MEDS: SLF 3 ML SYR IV SCH ×3 (05:34→20:26)
[2019-07-03 06:00] VITALS: BP 142/63
[2019-07-03 06:39] LABS: HEMATOCRIT 34.9 % (42.0-52.0); HEMOGLOBIN 10.6 g/dl (13.5-17.5); MEAN CORPUSCULAR HEMOGLOBIN 26.5 pg (27.0-33.0); MEAN CORPUSCULAR HGB CONC 30.4 g/dl (32.0-36.5); MEAN CORPUSCULAR VOLUME 87.3 fl (80.0-96.0); PLATELET COUNT, AUTOMATED 376 10^3/uL (150-450); WHITE BLOOD COUNT 9.8 10^3/uL (4.0-10.0)
[2019-07-03] MEDS: DOCUSATE SODIUM 100 MG CAP PO SCH ×2 (08:40→20:24)
[2019-07-03] MEDS: HumaLOG INSULIN (NovoLOG) PER UNIT SC SCH ×4 (08:40→20:25)
[2019-07-03] MEDS: lisinopriL 10 MG TAB PO SCH ×2 (08:40→20:24)
[2019-07-03] MEDS: ACETAMINOPHEN 500 MG TAB PO SCH ×3 (08:41→20:24)
[2019-07-03] MEDS: GABAPENTIN 300 MG CAP PO SCH ×3 (08:41→20:24)
[2019-07-03] MEDS: metFORMIN (GLUCOPHAGE) 500 MG TAB PO SCH ×2 (08:41→16:57)
[2019-07-03] MEDS: PANTOPRAZOLE 40MG TAB (PROTONIX) PO SCH (08:41)
[2019-07-03] MEDS: ENOXAPARIN 40 MG/0.4 ML SYRINGE (J1650) SC SCH (08:42)
[2019-07-03] MEDS: oxyCODONE 5MG TAB PO SCH ×4 (08:42→20:23)
[2019-07-03] MEDS: ASPIRIN 81 MG ENTERIC TAB PO SCH (08:42)
[2019-07-03 14:00] VITALS: BP 121/56
[2019-07-03 20:00] VITALS: BP 139/62
[2019-07-03] MEDS: ATORVASTATIN 20 MG TAB PO SCH (20:24)
[2019-07-03] MEDS: SENNA 8.6 MG TAB (SENOKOT) PO SCH (20:24)
[2019-07-04] MEDS: SLF 3 ML SYR IV SCH ×3 (05:51→20:52)
[2019-07-04 06:00] VITALS: BP 137/62
[2019-07-04] MEDS: HumaLOG INSULIN (NovoLOG) PER UNIT SC SCH ×4 (08:37→20:51)
[2019-07-04] MEDS: metFORMIN (GLUCOPHAGE) 500 MG TAB PO SCH ×2 (08:38→17:30)
[2019-07-04] MEDS: ASPIRIN 81 MG ENTERIC TAB PO SCH (08:38)
[2019-07-04] MEDS: lisinopriL 10 MG TAB PO SCH ×2 (08:38→20:50)
[2019-07-04] MEDS: ENOXAPARIN 40 MG/0.4 ML SYRINGE (J1650) SC SCH (08:38)
[2019-07-04] MEDS: ACETAMINOPHEN 500 MG TAB PO SCH ×3 (08:39→20:49)
[2019-07-04] MEDS: PANTOPRAZOLE 40MG TAB (PROTONIX) PO SCH (08:39)
[2019-07-04] MEDS: DOCUSATE SODIUM 100 MG CAP PO SCH ×2 (08:39→20:51)
[2019-07-04] MEDS: GABAPENTIN 300 MG CAP PO SCH ×3 (08:40→20:49)
[2019-07-04] MEDS: oxyCODONE 5MG TAB PO SCH ×4 (08:40→20:50)
--- NOTE | 2019-07-04 10:07 | IPNPDOC ---
Text Note Date of Service The patient was seen on 07/04/19. NOTE Subjective: Patient is a 68-year-old male with a PMHx of PVD, DM2, DLP, Insomnia, Smoker, CVA x3, PTSD who presented to the ER with complaints of "right leg is ." Patient was found to have gangrene of his right foot and was ultimately scheduled for a right [id number] amputation with Dr. Salmon. Patient was ultimately transition to acute rehabilitation unit on 06/27/2019 for continued PT / OT under the care of Dr. Winter. Patient was seen and examined while on his way to PT. . Patient reports he has had an uneventful evening, although he didn't sleep well. Denies chest pain, shortness of breath, palpitations. Denies nausea, vomiting, abdominal pain, diarrhea. Objective: Vitals (See below) General: Lying in bed, no acute distress, comfortable, AAOx3 HEENT: NC, AT CVS: +S1S2 Lungs: There is fair air entry bilaterally without evidence of rhonchi, rales or wheezing Abdomen: Nontender, nondistended. Remains Extremities: R AKA; dressing is clean without any external drainage noted, - Calf tenderness at left leg Assessment and plan: Right foot gangrene - likely 2/2 arterial insufficiency - s/p R leg AKA on 06/24/2019 - s/p 7 days of Zosyn - Pain control and physical therapy as per ARU - has been progressing with PT s/p Lactic acidosis PVD - c/w ASA DM2 - c/w ISS and Levemir - c/w Consistent carbohydrate diet HTN - BP appears well controlled - c/w Lisinopril DLP - c/w Atorvastatin Neuropathy - c/w Gabapentin Insomnia / PTSD / Anxiety - c/w Trazodone, Diazepam GI prophylaxis - c/w Protonix DVT prophylaxis - c/w Lovenox Disposition: - Patient is estimated date of departure is early July Percy BUENO, I+O Percy BUENO I+O Vital Signs Date Time Temp Pulse Resp B/P (MAP) Pulse Ox O2 Delivery O2 Flow Rate FiO2 07/04/19 08:40 18 07/04/19 08:38 137/62 07/04/19 06:00 98.4 58 97 Room Air I&O- Last 24 Hours up to 6 AM 07/04/19 05:59 Intake Total 1200 ml Output Total 1540 ml Balance -340 ml ROMELIA FRANCIS MD Jul 04, 2019 10:07
[2019-07-04 14:00] VITALS: BP 90/42
[2019-07-04 15:26] VITALS: BP 110/52
[2019-07-04 20:00] VITALS: BP 135/60
[2019-07-04] MEDS: ATORVASTATIN 20 MG TAB PO SCH (20:49)
[2019-07-04] MEDS: SENNA 8.6 MG TAB (SENOKOT) PO SCH (20:51)
[2019-07-05] MEDS: SLF 3 ML SYR IV SCH ×3 (05:55→20:21)
[2019-07-05] MEDS: ENOXAPARIN 40 MG/0.4 ML SYRINGE (J1650) SC SCH (08:41)
[2019-07-05] MEDS: HumaLOG INSULIN (NovoLOG) PER UNIT SC SCH ×4 (08:41→20:21)
[2019-07-05] MEDS: metFORMIN (GLUCOPHAGE) 500 MG TAB PO SCH ×2 (08:42→17:05)
[2019-07-05] MEDS: ASPIRIN 81 MG ENTERIC TAB PO SCH (08:42)
[2019-07-05] MEDS: lisinopriL 10 MG TAB PO SCH ×2 (08:42→20:20)
[2019-07-05] MEDS: GABAPENTIN 300 MG CAP PO SCH ×3 (08:42→20:20)
[2019-07-05] MEDS: PANTOPRAZOLE 40MG TAB (PROTONIX) PO SCH (08:42)
[2019-07-05] MEDS: ACETAMINOPHEN 500 MG TAB PO SCH ×3 (08:43→20:19)
[2019-07-05] MEDS: DOCUSATE SODIUM 100 MG CAP PO SCH ×3 (08:44→20:24)
[2019-07-05] MEDS: oxyCODONE 5MG TAB PO SCH ×4 (08:44→20:20)
[2019-07-05 14:00] VITALS: BP 123/56
[2019-07-05 19:54] VITALS: BP 137/62
[2019-07-05] MEDS: ATORVASTATIN 20 MG TAB PO SCH (20:20)
[2019-07-05] MEDS: SENNA 8.6 MG TAB (SENOKOT) PO SCH ×2 (20:20→20:24)
[2019-07-06 05:48] VITALS: BP 148/60
[2019-07-06 06:58] LABS: HEMATOCRIT 37.9 % (42.0-52.0); HEMOGLOBIN 11.3 g/dl (13.5-17.5); MEAN CORPUSCULAR HEMOGLOBIN 26.1 pg (27.0-33.0); MEAN CORPUSCULAR HGB CONC 29.8 g/dl (32.0-36.5); MEAN CORPUSCULAR VOLUME 87.5 fl (80.0-96.0); PLATELET COUNT, AUTOMATED 372 10^3/uL (150-450); RED BLOOD COUNT 4.33 10^6/uL (4.30-6.10); WHITE BLOOD COUNT 8.7 10^3/uL (4.0-10.0)
[2019-07-06 07:17] LABS: BLOOD UREA NITROGEN 14 MG/DL (7-18); CALCIUM LEVEL 9.6 MG/DL (8.8-10.2); CARBON DIOXIDE LEVEL 30 MEQ/L (21-32); CHLORIDE LEVEL 104 MEQ/L (98-107); CREATININE FOR GFR 0.82 MG/DL (0.70-1.30); GLOMERULAR FILTRATION RATE > 60.0 (>49); GLUCOSE, FASTING 135 MG/DL (70-100); POTASSIUM SERUM 4.8 MEQ/L (3.5-5.1); SODIUM LEVEL 139 MEQ/L (136-145)
--- NOTE | 2019-07-06 08:19 | IPNPDOC ---
Text Note Date of Service The patient was seen on 07/06/19. NOTE Subjective: Patient is a 68-year-old male with a PMHx of PVD, DM2, DLP, Insomnia, Smoker, CVA x3, PTSD who presented to the ER with complaints of "right leg is ." Patient was found to have gangrene of his right foot and was ultimately scheduled for a right [id number] amputation with Dr. Salmon. Patient was ultimately transition to acute rehabilitation unit on 06/27/2019 for continued PT / OT under the care of Dr. Winter. Patient was seen and examined at the bedside. Was in the process of starting to work with PT. He denied any problems overnight, no CP, SOB or palpitations. No N/V, abdominal pain or diarrhea. Objective: Vitals (See below) General: Lying in bed, no acute distress, comfortable, AAOx3 HEENT: NC, AT CVS: +S1S2 Lungs: fair air entry bilaterally without evidence of rhonchi, rales or wheezing Abdomen: Soft without distention / tenderness Extremities: R AKA, - Calf tenderness at left leg Assessment and plan: Right foot gangrene - likely 2/2 arterial insufficiency - s/p R leg AKA on 06/24/2019 - s/p 7 days of Zosyn - Pain control and physical therapy as per ARU - has been progressing with PT - anticipate discharge in Early July s/p Lactic acidosis PVD - c/w ASA DM2 - c/w ISS and Levemir - c/w Consistent carbohydrate diet HTN - BP appears well controlled - c/w Lisinopril DLP - c/w Atorvastatin Neuropathy - c/w Gabapentin Insomnia / PTSD / Anxiety - c/w Trazodone, Diazepam GI prophylaxis - c/w Protonix DVT prophylaxis - c/w Lovenox Disposition: - Patient is estimated date of departure is early July Percy BUENO, I+O VSPercy I+O Laboratory Tests 07/06/19 06:37 Vital Signs Date Time Temp Pulse Resp B/P (MAP) Pulse Ox O2 Delivery O2 Flow Rate FiO2 07/06/19 05:48 97.2 18 55 148/60 (89) 98 Room Air I&O- Last 24 Hours up to 6 AM 07/06/19 06:00 Intake Total 1200 ml Output Total 675 ml Balance 525 ml ROMELIA FRANCIS MD Jul 06, 2019 08:19
[2019-07-06] MEDS: HumaLOG INSULIN (NovoLOG) PER UNIT SC SCH ×4 (08:42→21:00)
[2019-07-06] MEDS: lisinopriL 10 MG TAB PO SCH ×2 (08:43→20:58)
[2019-07-06] MEDS: oxyCODONE 5MG TAB PO SCH ×4 (08:44→20:59)
[2019-07-06] MEDS: GABAPENTIN 300 MG CAP PO SCH ×3 (08:45→20:57)
[2019-07-06] MEDS: PANTOPRAZOLE 40MG TAB (PROTONIX) PO SCH (08:45)
[2019-07-06] MEDS: metFORMIN (GLUCOPHAGE) 500 MG TAB PO SCH ×2 (08:45→17:29)
[2019-07-06] MEDS: ACETAMINOPHEN 500 MG TAB PO SCH ×3 (08:45→20:58)
[2019-07-06] MEDS: ASPIRIN 81 MG ENTERIC TAB PO SCH (08:45)
[2019-07-06] MEDS: ENOXAPARIN 40 MG/0.4 ML SYRINGE (J1650) SC SCH (08:46)
[2019-07-06] MEDS: DOCUSATE SODIUM 100 MG CAP PO SCH ×2 (08:46→21:00)
[2019-07-06 14:00] VITALS: BP 131/63
[2019-07-06 20:00] VITALS: BP 140/65
[2019-07-06] MEDS: ATORVASTATIN 20 MG TAB PO SCH (20:57)
[2019-07-06] MEDS: SENNA 8.6 MG TAB (SENOKOT) PO SCH (21:00)
[2019-07-07 06:00] VITALS: BP 117/58
[2019-07-07] MEDS: HumaLOG INSULIN (NovoLOG) PER UNIT SC SCH ×4 (08:19→20:16)
[2019-07-07] MEDS: ENOXAPARIN 40 MG/0.4 ML SYRINGE (J1650) SC SCH (08:20)
[2019-07-07] MEDS: DOCUSATE SODIUM 100 MG CAP PO SCH ×3 (08:20→20:26)
[2019-07-07] MEDS: PANTOPRAZOLE 40MG TAB (PROTONIX) PO SCH (08:20)
[2019-07-07] MEDS: lisinopriL 10 MG TAB PO SCH ×2 (08:21→20:26)
[2019-07-07] MEDS: GABAPENTIN 300 MG CAP PO SCH ×3 (08:22→20:26)
[2019-07-07] MEDS: metFORMIN (GLUCOPHAGE) 500 MG TAB PO SCH ×2 (08:22→17:54)
[2019-07-07] MEDS: ASPIRIN 81 MG ENTERIC TAB PO SCH (08:22)
[2019-07-07] MEDS: ACETAMINOPHEN 500 MG TAB PO SCH ×3 (08:22→20:27)
[2019-07-07] MEDS: oxyCODONE 5MG TAB PO SCH ×4 (08:23→20:27)
[2019-07-07 14:00] VITALS: BP 112/52
[2019-07-07 20:00] VITALS: BP 132/56
[2019-07-07] MEDS: SENNA 8.6 MG TAB (SENOKOT) PO SCH (20:26)
[2019-07-07] MEDS: ATORVASTATIN 20 MG TAB PO SCH (20:26)
[2019-07-08 06:00] VITALS: BP 140/63
--- NOTE | 2019-07-08 08:21 | IPNPDOC ---
PM&R Progress Note DATE OF SERVICE: Jul 07, 2019 [employer] Progress Note Subjective: Patient seen in his room stating he is in good spirits and finds therapy helpful. REVIEW OF SYSTEMS: The following is a completed review of systems and has been reviewed. Review of systems otherwise unremarkable. PAIN: Patient self reports right residual limb pain EYES: No recent vision changes EARS, NOSE, & THROAT: No throat pain, or dysphagia, or rhinorrhea CARDIOVASCULAR: Denies chest pain or palpitations PULMONARY: Denies shortness of breath GASTROINTESTINAL: Denies constipation/diarrhea GENITOURINARY: denies dysuria MUSCULOSKELETAL: right AKA NEUROLOGICAL:+peripheral polyneuropathy HEMATOLOGICAL: denies easy bruising SKIN: right AKA incision PSYCHIATRIC: Unremarkable All other review of systems found to be negative. PHYSICAL EXAMINATION: VITAL SIGNS: Please see below. GENERAL: Pleasant and cooperative. No acute distress. thin HEENT: PERRL. Extraocular movements intact. Clear conjunctiva CARDIOVASCULAR: Regular rate and rhythm. No murmurs, rubs, or gallops LUNGS: Clear to auscultation bilaterally. No wheezes. No rhonchi ABDOMEN: Soft, nontender, nondistended. Positive bowel sounds. Normal active bowel sounds NEUROLOGICAL: Alert and oriented times three. Cranial nerves II through XII grossly intact. Sensation diminished left lower extremity in stocking pattern EXTREMITIES: 5\5 strength bilateral upper extremities. 5\5 strength right hip flexion. 5/5 strength in left lower extremity. SKIN: right AKA incision, c/d/i no carlos eduardo-incision maceration or drainage ASSESSMENT:68-year-old M with past medical history of PVD who presents status post right AKA. PLAN: 1. Rehab- PT advance gait training, limb care, maintain ROM of right hip, incorporate prone position for hip extension OT- advance ADL, maintain rom/strength/stretch bilat UE, scapular stabilization 2. Neuro: peripheral polyneuropathy- optimize diabetic control -hx of 3 CVAs, c/u ASA and statin therapy 3. Vasc: s/p right AKA 06-24-19, vasc consulted, s/p course of Zosyn- CRP WNL and leukocytosis resolved 4. Cardiac- recent ECHO no systolic/diastolic CHF -HTN- c/u lisinopril -medicine consulted to assist in management 5. Resp: encourage incentive spirometry, monitor for infection -educate on smoking cessation 6. GI ppx: protonix 7. DVT ppx: lovenox 8. Pain: tylenol, gabapentin, oxycodone 9. Psych: PTSD c/u Xanax prn, trazodone for insomnia 10. Endo: c/u metformin and ISS 10. Dispo: TBD Allergies Coded Allergies: ibuprofen (Verified Allergy, Severe, TROUBLE BREATHING, 04/04/19) strawberry (Verified Allergy, Severe, THROAT SWELLING, 04/04/19) Vital Signs Vital Signs Date Time Temp Pulse Resp B/P (MAP) Pulse Ox O2 Delivery O2 Flow Rate FiO2 07/08/19 06:00 97.5 56 18 140/63 (88) 96 Room Air Laboratory Data Labs 24H Laboratory Tests 2 07/07/19 12:09: Bedside Glucose (Misc Panel) 118H 07/07/19 16:37: Bedside Glucose (Misc Panel) 117H 07/07/19 19:55: Bedside Glucose (Misc Panel) 116H 07/08/19 06:47: Bedside Glucose (Misc Panel) 122H Current Medications Current Medications Current Medications Medications (Trade) Dose Ordered Sig/Jess Route PRN Reason Start Time Stop Time Status Last Admin Dose Admin Acetaminophen (Tylenol Tab) 1,000 mg TID PO 06/27/19 16:00 07/07/19 20:27 Aspirin (Ecotrin) 81 mg DAILY PO 06/28/19 09:00 07/07/19 08:22 Atorvastatin Calcium (Lipitor) 80 mg QHS PO 06/27/19 21:00 07/07/19 20:26 Dextrose (Dextrose 50%) 25 ml ASDIRECTED PRN IV SEE LABEL COMMENTS 06/27/19 15:45 07/01/19 10:21 DC Dextrose (Dextrose 50%) 25 ml ASDIRECTED PRN IV SEE LABEL COMMENTS 07/01/19 10:30 Diazepam (Valium) 2.5 mg Q8HP PRN PO SPASMS 06/27/19 15:45 06/28/19 20:08 Docusate Sodium (Colace) 100 mg BID PO 06/27/19 21:00 07/07/19 20:26 Enoxaparin Sodium (Lovenox) 40 mg DAILY SC 06/28/19 09:00 07/07/19 08:20 Gabapentin (Neurontin) 100 mg QHS PO 06/27/19 21:00 06/27/19 16:34 DC Gabapentin (Neurontin) 100 mg TID PO 06/27/19 21:00 06/29/19 11:03 DC 06/29/19 08:11 Gabapentin (Neurontin) 200 mg BID@0900,1500 PO 06/29/19 15:00 07/01/19 10:21 DC 07/01/19 08:22 Gabapentin (Neurontin) 300 mg QHS PO 06/29/19 21:00 07/01/19 10:21 DC 06/30/19 20:57 Gabapentin (Neurontin) 300 mg TID PO 07/01/19 16:00 07/07/19 20:26 Glucagon (Glucagon) 1 mg ASDIRECTED PRN SC SEE LABEL COMMENTS 06/27/19 15:45 07/01/19 10:21 DC Glucagon (Glucagon) 1 mg ASDIRECTED PRN SC SEE LABEL COMMENTS 07/01/19 10:30 Glucose (Glucose) 16 GM ASDIRECTED PRN PO SEE LABEL COMMENTS 06/27/19 15:45 07/01/19 10:21 DC Glucose (Glucose) 16 GM ASDIRECTED PRN PO SEE LABEL COMMENTS 07/01/19 10:30 Insulin Detemir (Levemir Insulin) 12 units BID SC 06/27/19 21:00 06/29/19 15:32 DC 06/29/19 08:11 Insulin Detemir (Levemir Insulin) 14 units BID SC 06/29/19 21:00 07/01/19 10:21 DC 07/01/19 08:18 Insulin Human Lispro (HumaLOG INSULIN) SEE PROTOCOL TABLE AC IA 06/27/19 17:30 07/01/19 10:21 DC 07/01/19 08:18 Insulin Human Lispro (HumaLOG INSULIN) SEE PROTOCOL TABLE AC IA 07/01/19 12:00 07/07/19 17:54 Insulin Human Lispro (HumaLOG INSULIN) [facility] 06/27/19 21:00 07/01/19 10:21 DC Insulin Human Lispro (HumaLOG INSULIN) [facility] 07/01/19 21:00 Lisinopril (Prinivil) 10 mg BID PO 06/27/19 21:00 07/07/19 20:26 Magnesium Hydroxide (Milk Of Magnesia) 30 ml DAILYPRN PRN PO CONSTIPATION 06/27/19 15:45 Metformin HCl (Glucophage) 500 mg BID@08,18 PO 07/01/19 18:00 07/07/19 17:54 Miscellaneous (Unresolved Clarification Entry) SEE LABEL COMMENTS DAILY XX 07/04/19 09:00 07/04/19 13:20 DC 07/04/19 09:00 Nystatin (Mycostatin Powder, Nystop) top of left foot DAILY TOP 06/28/19 09:00 06/28/19 10:51 DC Oxycodone HCl (Roxicodone, Oxyir) 5 mg 0800,1200,1600,2000 PO 06/29/19 08:00 07/07/19 20:27 Oxycodone HCl (Roxicodone, Oxyir) 5 mg Q4HP PRN PO PAIN 06/27/19 15:45 06/29/19 08:30 DC 06/28/19 21:44 Oxycodone HCl (Roxicodone, Oxyir) 5 mg QHS PRN PO PAIN 06/29/19 00:00 Pantoprazole Sodium (Protonix) 40 mg DAILY PO 06/28/19 09:00 07/07/19 08:20 Senna (Senokot) 1 tab QHS PO 06/27/19 21:00 07/07/19 20:26 Sodium Chloride 1,000 ml @ 80 mls/hr [id number] IV 07/01/19 15:00 07/02/19 07:05 DC 07/02/19 03:28 Sodium Chloride (Saline Lock Flush) 2 ml ASDIRECTED PRN IV SEE LABEL COMMENTS 07/01/19 14:30 07/05/19 20:23 DC Sodium Chloride (Saline Lock Flush) 2 ml SLF IV 07/01/19 14:00 07/05/19 20:23 DC 07/05/19 05:55 Trazodone HCl (Desyrel) 100 mg QHSP PRN PO INSOMNIA 06/27/19 15:45 SABRINA LOCKETT MD Jul 08, 2019 08:20
[2019-07-08] MEDS: lisinopriL 10 MG TAB PO SCH ×2 (08:34→21:02)
[2019-07-08] MEDS: ACETAMINOPHEN 500 MG TAB PO SCH ×3 (08:34→21:04)
[2019-07-08] MEDS: HumaLOG INSULIN (NovoLOG) PER UNIT SC SCH ×2 (08:34→12:27)
[2019-07-08] MEDS: PANTOPRAZOLE 40MG TAB (PROTONIX) PO SCH (08:34)
[2019-07-08] MEDS: GABAPENTIN 300 MG CAP PO SCH ×3 (08:34→21:04)
[2019-07-08] MEDS: oxyCODONE 5MG TAB PO SCH ×4 (08:35→21:03)
[2019-07-08] MEDS: DOCUSATE SODIUM 100 MG CAP PO SCH ×2 (08:35→21:00)
[2019-07-08] MEDS: metFORMIN (GLUCOPHAGE) 500 MG TAB PO SCH ×2 (08:35→17:28)
[2019-07-08] MEDS: ENOXAPARIN 40 MG/0.4 ML SYRINGE (J1650) SC SCH (08:35)
[2019-07-08] MEDS: ASPIRIN 81 MG ENTERIC TAB PO SCH (08:35)
--- NOTE | 2019-07-08 10:12 | IPNPDOC ---
PM&R Progress Note DATE OF SERVICE: Jul 08, 2019 Behavioral Psychologist Progress Note Subjective: Patient reporting he feels well today and is looking forward to showering. REVIEW OF SYSTEMS: The following is a completed review of systems and has been reviewed. Review of systems otherwise unremarkable. PAIN: Patient self reports right residual limb pain EYES: No recent vision changes EARS, NOSE, & THROAT: No throat pain, or dysphagia, or rhinorrhea CARDIOVASCULAR: Denies chest pain or palpitations PULMONARY: Denies shortness of breath GASTROINTESTINAL: Denies constipation/diarrhea GENITOURINARY: denies dysuria MUSCULOSKELETAL: right AKA NEUROLOGICAL:+peripheral polyneuropathy HEMATOLOGICAL: denies easy bruising SKIN: right AKA incision PSYCHIATRIC: Unremarkable All other review of systems found to be negative. PHYSICAL EXAMINATION: VITAL SIGNS: Please see below. GENERAL: Pleasant and cooperative. No acute distress. thin HEENT: PERRL. Extraocular movements intact. Clear conjunctiva CARDIOVASCULAR: Regular rate and rhythm. No murmurs, rubs, or gallops LUNGS: Clear to auscultation bilaterally. No wheezes. No rhonchi ABDOMEN: Soft, nontender, nondistended. Positive bowel sounds. Normal active bowel sounds NEUROLOGICAL: Alert and oriented times three. Cranial nerves II through XII grossly intact. Sensation diminished left lower extremity in stocking pattern EXTREMITIES: 5\5 strength bilateral upper extremities. 5\5 strength right hip flexion. 5/5 strength in left lower extremity. SKIN: right AKA incision, c/d/i no carlos eduardo-incision maceration or drainage ASSESSMENT:68-year-old M with past medical history of PVD who presents status post right AKA. PLAN: 1. Rehab- PT advance gait training, limb care, maintain ROM of right hip, incorporate prone position for hip extension OT- advance ADL, maintain rom/strength/stretch bilat UE, scapular stabilization 2. Neuro: peripheral polyneuropathy- optimize diabetic control -hx of 3 CVAs, c/u ASA and statin therapy 3. Vasc: s/p right AKA 06-24-19, vasc consulted, s/p course of Zosyn- CRP WNL and leukocytosis resolved -will confirm staple removal today with vascular 4. Cardiac- recent ECHO no systolic/diastolic CHF -HTN- c/u lisinopril -medicine consulted to assist in management 5. Resp: encourage incentive spirometry, monitor for infection -educate on smoking cessation 6. GI ppx: protonix 7. DVT ppx: lovenox 8. Pain: tylenol, gabapentin, oxycodone 9. Psych: PTSD c/u Xanax prn, trazodone for insomnia 10. Endo: c/u metformin and ISS 10. Dispo: TBD Allergies Coded Allergies: ibuprofen (Verified Allergy, Severe, TROUBLE BREATHING, 04/04/19) strawberry (Verified Allergy, Severe, THROAT SWELLING, 04/04/19) Vital Signs Vital Signs Date Time Temp Pulse Resp B/P (MAP) Pulse Ox O2 Delivery O2 Flow Rate FiO2 07/08/19 09:05 16 07/08/19 08:34 140/63 07/08/19 06:00 97.5 56 96 Room Air Laboratory Data Labs 24H Laboratory Tests 2 07/07/19 12:09: Bedside Glucose (Misc Panel) 118H 07/07/19 16:37: Bedside Glucose (Misc Panel) 117H 07/07/19 19:55: Bedside Glucose (Misc Panel) 116H 07/08/19 06:47: Bedside Glucose (Misc Panel) 122H Current Medications Current Medications Current Medications Medications (Trade) Dose Ordered Sig/Jess Route PRN Reason Start Time Stop Time Status Last Admin Dose Admin Acetaminophen (Tylenol Tab) 1,000 mg TID PO 06/27/19 16:00 07/08/19 08:34 Aspirin (Ecotrin) 81 mg DAILY PO 06/28/19 09:00 07/08/19 08:35 Atorvastatin Calcium (Lipitor) 80 mg QHS PO 06/27/19 21:00 07/07/19 20:26 Dextrose (Dextrose 50%) 25 ml ASDIRECTED PRN IV SEE LABEL COMMENTS 06/27/19 15:45 07/01/19 10:21 DC Dextrose (Dextrose 50%) 25 ml ASDIRECTED PRN IV SEE LABEL COMMENTS 07/01/19 10:30 Diazepam (Valium) 2.5 mg Q8HP PRN PO SPASMS 06/27/19 15:45 06/28/19 20:08 Docusate Sodium (Colace) 100 mg BID PO 06/27/19 21:00 07/08/19 08:35 Enoxaparin Sodium (Lovenox) 40 mg DAILY SC 06/28/19 09:00 07/08/19 08:35 Gabapentin (Neurontin) 100 mg QHS PO 06/27/19 21:00 06/27/19 16:34 DC Gabapentin (Neurontin) 100 mg TID PO 06/27/19 21:00 06/29/19 11:03 DC 06/29/19 08:11 Gabapentin (Neurontin) 200 mg BID@0900,1500 PO 06/29/19 15:00 07/01/19 10:21 DC 07/01/19 08:22 Gabapentin (Neurontin) 300 mg QHS PO 06/29/19 21:00 07/01/19 10:21 DC 06/30/19 20:57 Gabapentin (Neurontin) 300 mg TID PO 07/01/19 16:00 07/08/19 08:34 Glucagon (Glucagon) 1 mg ASDIRECTED PRN SC SEE LABEL COMMENTS 06/27/19 15:45 07/01/19 10:21 DC Glucagon (Glucagon) 1 mg ASDIRECTED PRN SC SEE LABEL COMMENTS 07/01/19 10:30 Glucose (Glucose) 16 GM ASDIRECTED PRN PO SEE LABEL COMMENTS 06/27/19 15:45 07/01/19 10:21 DC Glucose (Glucose) 16 GM ASDIRECTED PRN PO SEE LABEL COMMENTS 07/01/19 10:30 Insulin Detemir (Levemir Insulin) 12 units BID SC 06/27/19 21:00 06/29/19 15:32 DC 06/29/19 08:11 Insulin Detemir (Levemir Insulin) 14 units BID SC 06/29/19 21:00 07/01/19 10:21 DC 07/01/19 08:18 Insulin Human Lispro (HumaLOG INSULIN) SEE PROTOCOL TABLE AC HI 06/27/19 17:30 07/01/19 10:21 DC 07/01/19 08:18 Insulin Human Lispro (HumaLOG INSULIN) SEE PROTOCOL TABLE AC HI 07/01/19 12:00 07/08/19 08:34 Insulin Human Lispro (HumaLOG INSULIN) [facility]OCOL [facility] 06/27/19 21:00 07/01/19 10:21 DC Insulin Human Lispro (HumaLOG INSULIN) SEE PROTOCOL TABLE QHS HI 07/01/19 21:00 Lisinopril (Prinivil) 10 mg BID PO 06/27/19 21:00 12/27/19 08:34 Magnesium Hydroxide (Milk Of Magnesia) 30 ml DAILYPRN PRN PO CONSTIPATION 06/27/19 15:45 Metformin HCl (Glucophage) 500 mg BID@08,18 PO 07/01/19 18:00 07/08/19 08:35 Miscellaneous (Unresolved Clarification Entry) SEE LABEL COMMENTS DAILY XX 07/04/19 09:00 07/04/19 13:20 DC 07/04/19 09:00 Nystatin (Mycostatin Powder, Nystop) top of left foot DAILY TOP 06/28/19 09:00 06/28/19 10:51 DC Oxycodone HCl (Roxicodone, Oxyir) 5 mg 0800,1200,1600,2000 PO 06/29/19 08:00 07/08/19 08:35 Oxycodone HCl (Roxicodone, Oxyir) 5 mg Q4HP PRN PO PAIN 06/27/19 15:45 06/29/19 08:30 DC 06/28/19 21:44 Oxycodone HCl (Roxicodone, Oxyir) 5 mg QHS PRN PO PAIN 06/29/19 00:00 Pantoprazole Sodium (Protonix) 40 mg DAILY PO 06/28/19 09:00 07/08/19 08:34 Senna (Senokot) 1 tab QHS PO 06/27/19 21:00 07/07/19 20:26 Sodium Chloride 1,000 ml @ 80 mls/hr [id number] IV 07/01/19 15:00 07/02/19 07:05 DC 07/02/19 03:28 Sodium Chloride (Saline Lock Flush) 2 ml ASDIRECTED PRN IV SEE LABEL COMMENTS 07/01/19 14:30 07/05/19 20:23 DC Sodium Chloride (Saline Lock Flush) 2 ml SLF IV 07/01/19 14:00 07/05/19 20:23 DC 07/05/19 05:55 Trazodone HCl (Desyrel) 100 mg QHSP PRN PO INSOMNIA 06/27/19 15:45 SABRINA LOCKETT MD Jul 08, 2019 10:12
[2019-07-08] MEDS ORDERED: DEXTROSE 50% 50 ML SYRINGE IV PRN (13:00)
[2019-07-08] MEDS ORDERED: GLUCAGON FOR INJ 1 MG VIAL (J1610) SC PRN (13:00)
[2019-07-08] MEDS ORDERED: GLUCOSE 4 GM CHEW TABLET PO PRN (13:00)
[2019-07-08 14:00] VITALS: BP 118/56
[2019-07-08 20:00] VITALS: BP 125/56
[2019-07-08] MEDS: SENNA 8.6 MG TAB (SENOKOT) PO SCH (21:00)
[2019-07-08] MEDS: ATORVASTATIN 20 MG TAB PO SCH (21:04)
[2019-07-09 06:00] VITALS: BP 129/59
[2019-07-09 07:35] LABS: HEMATOCRIT 38.2 % (42.0-52.0); HEMOGLOBIN 11.5 g/dl (13.5-17.5); MEAN CORPUSCULAR HEMOGLOBIN 26.1 pg (27.0-33.0); MEAN CORPUSCULAR HGB CONC 30.1 g/dl (32.0-36.5); MEAN CORPUSCULAR VOLUME 86.6 fl (80.0-96.0); PLATELET COUNT, AUTOMATED 350 10^3/uL (150-450); RED BLOOD COUNT 4.41 10^6/uL (4.30-6.10); WHITE BLOOD COUNT 8.4 10^3/uL (4.0-10.0)
[2019-07-09 07:57] LABS: BLOOD UREA NITROGEN 22 MG/DL (7-18); CARBON DIOXIDE LEVEL 26 MEQ/L (21-32); CHLORIDE LEVEL 105 MEQ/L (98-107); CREATININE FOR GFR 0.79 MG/DL (0.70-1.30); GLOMERULAR FILTRATION RATE > 60.0 (>49); GLUCOSE, FASTING 128 MG/DL (70-100); POTASSIUM SERUM 4.6 MEQ/L (3.5-5.1); SODIUM LEVEL 139 MEQ/L (136-145)
[2019-07-09] MEDS: DOCUSATE SODIUM 100 MG CAP PO SCH ×2 (09:00→21:00)
[2019-07-09] MEDS: ASPIRIN 81 MG ENTERIC TAB PO SCH (09:39)
[2019-07-09] MEDS: oxyCODONE 5MG TAB PO SCH ×4 (09:40→21:26)
[2019-07-09] MEDS: metFORMIN (GLUCOPHAGE) 500 MG TAB PO SCH ×2 (09:40→18:27)
[2019-07-09] MEDS: GABAPENTIN 300 MG CAP PO SCH ×3 (09:40→21:26)
[2019-07-09] MEDS: lisinopriL 10 MG TAB PO SCH ×2 (09:40→21:26)
[2019-07-09] MEDS: ACETAMINOPHEN 500 MG TAB PO SCH ×3 (09:41→21:25)
[2019-07-09] MEDS: ENOXAPARIN 40 MG/0.4 ML SYRINGE (J1650) SC SCH (09:41)
[2019-07-09] MEDS: PANTOPRAZOLE 40MG TAB (PROTONIX) PO SCH (09:41)
[2019-07-09 14:00] VITALS: BP 116/56
--- NOTE | 2019-07-09 18:37 | IPNPDOC ---
Text Note Date of Service The patient was seen on 07/09/19. NOTE Subjective: Patient stated that overall he feels good. He continues physical therapy. Patient denies fever, chills, nausea, vomiting, shortness of breath, diarrhea or dysuria Objective: General: Lying in bed, no acute distress, comfortable, AAOx3 HEENT: NC, AT CVS: +S1S2 Lungs: fair air entry bilaterally without evidence of rhonchi, rales or wheezing Abdomen: Soft without distention / tenderness Extremities: R AKA Assessment and plan: Patient is a 68-year-old male with a PMHx of PVD, DM2, DLP, insomnia, smoker, CVA x3, PTSD who presented to the ER with complaints of "right leg is ." Patient was found to have gangrene of his right foot and was ultimately scheduled for a right [id number] amputation with Dr. Salmon. Patient was ultimately transition to acute rehabilitation unit on 06/27/2019 for continued PT / OT under the care of Dr. Winter. Right foot gangrene - likely 2/2 arterial insufficiency - s/p R leg AKA on 06/24/2019 Continue physical therapy s/p Lactic acidosis PVD Continue aspirin DM2 Glucose levels under control - c/w ISS and Levemir - c/w Consistent carbohydrate diet HTN - BP appears well controlled - c/w Lisinopril DLP - c/w Atorvastatin Neuropathy - c/w Gabapentin Insomnia / PTSD / Anxiety - c/w Trazodone, Diazepam GI prophylaxis - c/w Protonix DVT prophylaxis - c/w Lovenox VS,Fishbone, I+O VS, Fishbone, I+O Laboratory Tests 07/09/19 07:09 Vital Signs Date Time Temp Pulse Resp B/P (MAP) Pulse Ox O2 Delivery O2 Flow Rate FiO2 07/09/19 14:00 97.7 66 18 116/56 (76) 96 Room Air I&O- Last 24 Hours up to 6 AM 07/09/19 06:00 Intake Total 600 ml Output Total 1150 ml Balance -550 ml IAN YEUNG DO Jul 09, 2019 18:36
[2019-07-09 21:00] VITALS: BP 114/58
[2019-07-09] MEDS: SENNA 8.6 MG TAB (SENOKOT) PO SCH (21:00)
[2019-07-09] MEDS: ATORVASTATIN 20 MG TAB PO SCH (21:25)
[2019-07-10 06:00] VITALS: BP 123/53
[2019-07-10] MEDS: PANTOPRAZOLE 40MG TAB (PROTONIX) PO SCH (08:54)
[2019-07-10] MEDS: ASPIRIN 81 MG ENTERIC TAB PO SCH (08:54)
[2019-07-10] MEDS: oxyCODONE 5MG TAB PO SCH ×4 (08:55→22:33)
[2019-07-10] MEDS: metFORMIN (GLUCOPHAGE) 500 MG TAB PO SCH ×2 (08:55→18:29)
[2019-07-10] MEDS: GABAPENTIN 300 MG CAP PO SCH ×3 (08:56→22:31)
[2019-07-10] MEDS: ACETAMINOPHEN 500 MG TAB PO SCH ×3 (08:56→22:32)
[2019-07-10] MEDS: lisinopriL 10 MG TAB PO SCH ×2 (08:56→22:32)
[2019-07-10] MEDS: ENOXAPARIN 40 MG/0.4 ML SYRINGE (J1650) SC SCH (08:57)
[2019-07-10] MEDS: DOCUSATE SODIUM 100 MG CAP PO SCH ×2 (08:57→21:00)
[2019-07-10 14:00] VITALS: BP 120/52
[2019-07-10 20:00] VITALS: BP 118/52
[2019-07-10] MEDS: SENNA 8.6 MG TAB (SENOKOT) PO SCH (21:00)
[2019-07-10] MEDS: ATORVASTATIN 20 MG TAB PO SCH (22:32)
[2019-07-11 06:00] VITALS: BP 118/55
[2019-07-11] MEDS: ENOXAPARIN 40 MG/0.4 ML SYRINGE (J1650) SC SCH (09:24)
[2019-07-11] MEDS: lisinopriL 10 MG TAB PO SCH ×2 (09:25→21:00)
[2019-07-11] MEDS: ASPIRIN 81 MG ENTERIC TAB PO SCH (09:25)
[2019-07-11] MEDS: oxyCODONE 5MG TAB PO SCH ×4 (09:25→21:02)
[2019-07-11] MEDS: DOCUSATE SODIUM 100 MG CAP PO SCH ×2 (09:25→21:01)
[2019-07-11] MEDS: GABAPENTIN 300 MG CAP PO SCH ×3 (09:25→21:02)
[2019-07-11] MEDS: metFORMIN (GLUCOPHAGE) 500 MG TAB PO SCH ×2 (09:26→16:45)
[2019-07-11] MEDS: ACETAMINOPHEN 500 MG TAB PO SCH ×3 (09:26→21:02)
[2019-07-11] MEDS: PANTOPRAZOLE 40MG TAB (PROTONIX) PO SCH (09:26)
[2019-07-11 14:00] VITALS: BP 95/52
[2019-07-11 20:00] VITALS: BP 109/50
[2019-07-11] MEDS: SENNA 8.6 MG TAB (SENOKOT) PO SCH (21:00)
[2019-07-11] MEDS: ATORVASTATIN 20 MG TAB PO SCH (21:02)
[2019-07-12 05:42] VITALS: BP 123/59
[2019-07-12] MEDS: ENOXAPARIN 40 MG/0.4 ML SYRINGE (J1650) SC SCH (07:57)
[2019-07-12] MEDS: ACETAMINOPHEN 500 MG TAB PO SCH ×3 (07:57→20:36)
[2019-07-12] MEDS: metFORMIN (GLUCOPHAGE) 500 MG TAB PO SCH ×2 (07:58→17:48)
[2019-07-12] MEDS: DOCUSATE SODIUM 100 MG CAP PO SCH ×2 (07:58→20:36)
[2019-07-12] MEDS: GABAPENTIN 300 MG CAP PO SCH ×3 (07:58→20:36)
[2019-07-12] MEDS: ASPIRIN 81 MG ENTERIC TAB PO SCH (07:58)
[2019-07-12] MEDS: PANTOPRAZOLE 40MG TAB (PROTONIX) PO SCH (07:58)
[2019-07-12] MEDS: lisinopriL 10 MG TAB PO SCH ×2 (07:59→20:36)
[2019-07-12] MEDS: oxyCODONE 5MG TAB PO SCH ×4 (08:01→20:37)
[2019-07-12 14:00] VITALS: BP 122/50
[2019-07-12 20:00] VITALS: BP 126/60
[2019-07-12] MEDS: ATORVASTATIN 20 MG TAB PO SCH (20:37)
[2019-07-12] MEDS: SENNA 8.6 MG TAB (SENOKOT) PO SCH (20:40)
[2019-07-13 06:00] VITALS: BP 138/64
[2019-07-13] MEDS: metFORMIN (GLUCOPHAGE) 500 MG TAB PO SCH ×2 (07:57→17:15)
[2019-07-13] MEDS: ACETAMINOPHEN 500 MG TAB PO SCH ×3 (07:58→20:05)
[2019-07-13] MEDS: oxyCODONE 5MG TAB PO SCH ×4 (07:58→20:04)
[2019-07-13] MEDS: DOCUSATE SODIUM 100 MG CAP PO SCH ×2 (07:58→20:04)
[2019-07-13] MEDS: lisinopriL 10 MG TAB PO SCH ×2 (07:58→20:07)
[2019-07-13] MEDS: ASPIRIN 81 MG ENTERIC TAB PO SCH (07:58)
[2019-07-13] MEDS: PANTOPRAZOLE 40MG TAB (PROTONIX) PO SCH (07:59)
[2019-07-13] MEDS: GABAPENTIN 300 MG CAP PO SCH ×3 (07:59→20:04)
[2019-07-13] MEDS: ENOXAPARIN 40 MG/0.4 ML SYRINGE (J1650) SC SCH (07:59)
[2019-07-13 14:00] VITALS: BP 143/60
[2019-07-13 20:00] VITALS: BP 126/57
[2019-07-13] MEDS: SENNA 8.6 MG TAB (SENOKOT) PO SCH (20:04)
[2019-07-13] MEDS: ATORVASTATIN 20 MG TAB PO SCH (20:05)
[2019-07-14 06:00] VITALS: BP 137/73
[2019-07-14] MEDS: PANTOPRAZOLE 40MG TAB (PROTONIX) PO SCH (08:49)
[2019-07-14] MEDS: metFORMIN (GLUCOPHAGE) 500 MG TAB PO SCH ×2 (08:49→17:28)
[2019-07-14] MEDS: GABAPENTIN 300 MG CAP PO SCH ×3 (08:49→21:19)
[2019-07-14] MEDS: ASPIRIN 81 MG ENTERIC TAB PO SCH (08:49)
[2019-07-14] MEDS: lisinopriL 10 MG TAB PO SCH ×2 (08:49→21:18)
[2019-07-14] MEDS: DOCUSATE SODIUM 100 MG CAP PO SCH ×2 (08:49→21:18)
[2019-07-14] MEDS: ACETAMINOPHEN 500 MG TAB PO SCH ×3 (08:50→21:18)
[2019-07-14] MEDS: oxyCODONE 5MG TAB PO SCH ×4 (08:51→21:19)
[2019-07-14] MEDS: ENOXAPARIN 40 MG/0.4 ML SYRINGE (J1650) SC SCH (08:53)
[2019-07-14 10:38] LABS: BASO # 0.1 10^3/uL (0.0-0.2); BASO % 1.2 % (0.0-1.0); EOS # 0.5 10^3/uL (0.0-0.5); EOS % 5.3 % (0.0-3.0); HEMATOCRIT 38.9 % (42.0-52.0); LYMPH # 1.6 10^3/uL (1.5-5.0); LYMPH % 16.1 % (24.0-44.0); MEAN CORPUSCULAR HEMOGLOBIN 27.1 pg (27.0-33.0); MEAN CORPUSCULAR HGB CONC 30.8 g/dl (32.0-36.5); MEAN CORPUSCULAR VOLUME 87.8 fl (80.0-96.0); MONO # 0.7 10^3/uL (0.0-0.8); MONO % 7.3 % (0.0-5.0); NEUTROPHILS # 7.1 10^3/uL (1.5-8.5); NEUTROPHILS % 69.6 % (36.0-66.0); PLATELET COUNT, AUTOMATED 342 10^3/uL (150-450); RED BLOOD COUNT 4.43 10^6/uL (4.30-6.10); WHITE BLOOD COUNT 10.2 10^3/uL (4.0-10.0)
[2019-07-14 11:09] LABS: BLOOD UREA NITROGEN 16 MG/DL (7-18); CALCIUM LEVEL 9.5 MG/DL (8.8-10.2); CARBON DIOXIDE LEVEL 26 MEQ/L (21-32); CHLORIDE LEVEL 106 MEQ/L (98-107); CREATININE FOR GFR 0.81 MG/DL (0.70-1.30); GLOMERULAR FILTRATION RATE > 60.0 (>49); GLUCOSE, FASTING 135 MG/DL (70-100); POTASSIUM SERUM 4.4 MEQ/L (3.5-5.1); SODIUM LEVEL 140 MEQ/L (136-145)
--- NOTE | 2019-07-14 11:47 | IPNPDOC ---
PM&R Progress Note DATE OF SERVICE: Jul 09, 2019 Shipping And Receiving Weigher Progress Note Subjective: Patient reporting he was able to wrap his own limb and feels well. REVIEW OF SYSTEMS: The following is a completed review of systems and has been reviewed. Review of systems otherwise unremarkable. PAIN: Patient self reports right residual limb pain EYES: No recent vision changes EARS, NOSE, & THROAT: No throat pain, or dysphagia, or rhinorrhea CARDIOVASCULAR: Denies chest pain or palpitations PULMONARY: Denies shortness of breath GASTROINTESTINAL: Denies constipation/diarrhea GENITOURINARY: denies dysuria MUSCULOSKELETAL: right AKA NEUROLOGICAL:+peripheral polyneuropathy HEMATOLOGICAL: denies easy bruising SKIN: right AKA incision PSYCHIATRIC: Unremarkable All other review of systems found to be negative. PHYSICAL EXAMINATION: VITAL SIGNS: Please see below. GENERAL: Pleasant and cooperative. No acute distress. thin HEENT: PERRL. Extraocular movements intact. Clear conjunctiva CARDIOVASCULAR: Regular rate and rhythm. No murmurs, rubs, or gallops LUNGS: Clear to auscultation bilaterally. No wheezes. No rhonchi ABDOMEN: Soft, nontender, nondistended. Positive bowel sounds. Normal active bowel sounds NEUROLOGICAL: Alert and oriented times three. Cranial nerves II through XII grossly intact. Sensation diminished left lower extremity in stocking pattern EXTREMITIES: 5\5 strength bilateral upper extremities. 5\5 strength right hip flexion. 5/5 strength in left lower extremity. SKIN: right AKA incision, c/d/i no carlos eduardo-incision maceration or drainage ASSESSMENT:68-year-old M with past medical history of PVD who presents status p ost right AKA. PLAN: 1. Rehab- PT advance gait training, limb care, maintain ROM of right hip, inco rporate prone position for hip extension OT- advance ADL, maintain rom/strength/stretch bilat UE, scapular stabilization 2. Neuro: peripheral polyneuropathy- optimize diabetic control -hx of 3 CVAs, c/u ASA and statin therapy 3. Vasc: s/p right AKA 06-24-19, vasc consulted, s/p course of Zosyn- CRP WNL and leukocytosis resolved -ok to remove greg after 3 weeks, 07-15-18 4. Cardiac- recent ECHO no systolic/diastolic CHF -HTN- c/u lisinopril -medicine consulted to assist in management 5. Resp: encourage incentive spirometry, monitor for infection -educate on smoking cessation 6. GI ppx: protonix 7. DVT ppx: lovenox 8. Pain: tylenol, gabapentin, oxycodone 9. Psych: PTSD c/u Xanax prn, trazodone for insomnia 10. Endo: c/u metformin and ISS 10. Dispo: TBD Allergies Coded Allergies: ibuprofen (Verified Allergy, Severe, TROUBLE BREATHING, 04/04/19) strawberry (Verified Allergy, Severe, THROAT SWELLING, 04/04/19) Vital Signs Vital Signs Date Time Temp Pulse Resp B/P (MAP) Pulse Ox O2 Delivery O2 Flow Rate FiO2 07/14/19 09:21 17 07/14/19 06:00 97.8 59 137/73 (94) 97 Room Air Laboratory Data CBC/BMP Laboratory Tests 07/14/19 10:19 Labs 24H Laboratory Tests 2 07/13/19 16:37: Bedside Glucose (Misc Panel) 155H 07/14/19 06:05: Bedside Glucose (Misc Panel) 125H 07/14/19 10:19: Immature Granulocyte % (Auto) 0.5, Neutrophils (%) (Auto) 69.6H, Lymphocytes (%) (Auto) 16.1L, Monocytes (%) (Auto) 7.3H, Eosinophils (%) (Auto) 5.3H, Basophils (%) (Auto) 1.2H, Neutrophils # (Auto) 7.1, Lymphocytes # (Auto) 1.6, Monocytes # (Auto) 0.7, Eosinophils # (Auto) 0.5, Basophils # (Auto) 0.1, Nucleated Red Blood Cells % (auto) 0.0, Anion Gap 8, Glomerular Filtration Rate > 60.0, Calcium Level 9.5 Current Medications Current Medications Current Medications Medications (Trade) Dose Ordered Sig/Jess Route PRN Reason Start Time Stop Time Status Last Admin Dose Admin Acetaminophen (Tylenol Tab) 1,000 mg TID PO 06/27/19 16:00 07/14/19 08:50 Aspirin (Ecotrin) 81 mg DAILY PO 06/28/19 09:00 07/14/19 08:49 Atorvastatin Calcium (Lipitor) 80 mg QHS PO 06/27/19 21:00 07/13/19 20:05 Dextrose (Dextrose 50%) 25 ml ASDIRECTED PRN IV SEE LABEL COMMENTS 06/27/19 15:45 07/01/19 10:21 DC Dextrose (Dextrose 50%) 25 ml ASDIRECTED PRN IV SEE LABEL COMMENTS 07/01/19 10:30 07/08/19 12:47 DC Dextrose (Dextrose 50%) 25 ml ASDIRECTED PRN IV SEE LABEL COMMENTS 07/08/19 13:00 Diazepam (Valium) 2.5 mg Q8HP PRN PO SPASMS 06/27/19 15:45 07/10/19 13:39 DC 06/28/19 20:08 Docusate Sodium (Colace) 100 mg BID PO 06/27/19 21:00 07/14/19 08:49 Enoxaparin Sodium (Lovenox) 40 mg DAILY SC 06/28/19 09:00 07/14/19 08:53 Gabapentin (Neurontin) 100 mg QHS PO 06/27/19 21:00 06/27/19 16:34 DC Gabapentin (Neurontin) 100 mg TID PO 06/27/19 21:00 06/29/19 11:03 DC 06/29/19 08:11 Gabapentin (Neurontin) 200 mg BID@0900,1500 PO 06/29/19 15:00 07/01/19 10:21 DC 07/01/19 08:22 Gabapentin (Neurontin) 300 mg QHS PO 06/29/19 21:00 07/01/19 10:21 DC 06/30/19 20:57 Gabapentin (Neurontin) 300 mg TID PO 07/01/19 16:00 07/14/19 08:49 Glucagon (Glucagon) 1 mg ASDIRECTED PRN SC SEE LABEL COMMENTS 06/27/19 15:45 07/01/19 10:21 DC Glucagon (Glucagon) 1 mg ASDIRECTED PRN SC SEE LABEL COMMENTS 07/01/19 10:30 07/08/19 12:47 DC Glucagon (Glucagon) 1 mg ASDIRECTED PRN SC SEE LABEL COMMENTS 07/08/19 13:00 Glucose (Glucose) 16 GM ASDIRECTED PRN PO SEE LABEL COMMENTS 06/27/19 15:45 07/01/19 10:21 DC Glucose (Glucose) 16 GM ASDIRECTED PRN PO SEE LABEL COMMENTS 07/01/19 10:30 07/08/19 12:47 DC Glucose (Glucose) 16 GM ASDIRECTED PRN PO SEE LABEL COMMENTS 07/08/19 13:00 Insulin Detemir (Levemir Insulin) 12 units BID SC 06/27/19 21:00 06/29/19 15:32 DC 06/29/19 08:11 Insulin Detemir (Levemir Insulin) 14 units BID SC 06/29/19 21:00 07/01/19 10:21 DC 07/01/19 08:18 Insulin Human Lispro (HumaLOG INSULIN) SEE PROTOCOL TABLE AC OR 06/27/19 17:30 07/01/19 10:21 DC 07/01/19 08:18 Insulin Human Lispro (HumaLOG INSULIN) SEE PROTOCOL TABLE AC OR 07/01/19 12:00 07/08/19 12:47 DC 07/08/19 12:27 Insulin Human Lispro (HumaLOG INSULIN) [facility] 06/27/[facility] 21:00 07/01/19 10:21 DC Insulin Human Lispro (HumaLOG INSULIN) [facility]OCOL [facility] 07/01/19 21:00 07/08/19 12:47 DC Lisinopril (Prinivil) 10 mg BID PO 06/27/19 21:00 07/14/19 08:49 Magnesium Hydroxide (Milk Of Magnesia) 30 ml DAILYPRN PRN PO CONSTIPATION 06/27/19 15:45 Metformin HCl (Glucophage) 500 mg BID@08,18 PO 07/01/19 18:00 07/14/19 08:49 Miscellaneous (Unresolved Clarification Entry) SEE LABEL COMMENTS DAILY XX 07/04/19 09:00 07/04/19 13:20 DC 07/04/19 09:00 Miscellaneous (Unresolved Clarification Entry) SEE LABEL COMMENTS DAILY XX 07/10/19 09:00 07/10/19 13:44 DC Nystatin (Mycostatin Powder, Nystop) top of left foot DAILY TOP 06/28/19 09:00 06/28/19 10:51 DC Oxycodone HCl (Roxicodone, Oxyir) 5 mg 0800,1200,1600,2000 PO 06/29/19 08:00 07/14/19 08:51 Oxycodone HCl (Roxicodone, Oxyir) 5 mg Q4HP PRN PO PAIN 06/27/19 15:45 06/29/19 08:30 DC 06/28/19 21:44 Oxycodone HCl (Roxicodone, Oxyir) 5 mg QHS PRN PO PAIN 06/29/19 00:00 Pantoprazole Sodium (Protonix) 40 mg DAILY PO 06/28/19 09:00 07/14/19 08:49 Senna (Senokot) 1 tab QHS PO 06/27/19 21:00 07/13/19 20:04 Sodium Chloride 1,000 ml @ 80 mls/hr [id number] IV 07/01/19 15:00 07/02/19 07:05 DC 07/02/19 03:28 Sodium Chloride (Saline Lock Flush) 2 ml ASDIRECTED PRN IV SEE LABEL COMMENTS 07/01/19 14:30 07/05/19 20:23 DC Sodium Chloride (Saline Lock Flush) 2 ml SLF IV 07/01/19 14:00 07/05/19 20:23 DC 07/05/19 05:55 Trazodone HCl (Desyrel) 100 mg QHSP PRN PO INSOMNIA 06/27/19 15:45 SABRINA LOCKETT MD Jul 14, 2019 11:47
--- NOTE | 2019-07-14 11:48 | IPNPDOC ---
PM&R Progress Note DATE OF SERVICE: Jul 14, 2019 Marketing Automation Specialist Progress Note Subjective: Patient reporting he is in good spirits today and has not complaints. REVIEW OF SYSTEMS: The following is a completed review of systems and has been reviewed. Review of systems otherwise unremarkable. PAIN: Patient self reports right residual limb pain EYES: No recent vision changes EARS, NOSE, & THROAT: No throat pain, or dysphagia, or rhinorrhea CARDIOVASCULAR: Denies chest pain or palpitations PULMONARY: Denies shortness of breath GASTROINTESTINAL: Denies constipation/diarrhea GENITOURINARY: denies dysuria MUSCULOSKELETAL: right AKA NEUROLOGICAL:+peripheral polyneuropathy HEMATOLOGICAL: denies easy bruising SKIN: right AKA incision PSYCHIATRIC: Unremarkable All other review of systems found to be negative. PHYSICAL EXAMINATION: VITAL SIGNS: Please see below. GENERAL: Pleasant and cooperative. No acute distress. thin HEENT: PERRL. Extraocular movements intact. Clear conjunctiva CARDIOVASCULAR: Regular rate and rhythm. No murmurs, rubs, or gallops LUNGS: Clear to auscultation bilaterally. No wheezes. No rhonchi ABDOMEN: Soft, nontender, nondistended. Positive bowel sounds. Normal active bowel sounds NEUROLOGICAL: Alert and oriented times three. Cranial nerves II through XII grossly intact. Sensation diminished left lower extremity in stocking pattern EXTREMITIES: 5\5 strength bilateral upper extremities. 5\5 strength right hip f lexion. 5/5 strength in left lower extremity. SKIN: right AKA incision, c/d/i no carlos eduardo-incision maceration or drainage ASSESSMENT:68-year-old M with past medical history of PVD who presents status post right AKA. PLAN: 1. Rehab- PT advance gait training, limb care, maintain ROM of right hip, in corporate prone position for hip extension OT- advance ADL, maintain rom/strength/stretch bilat UE, scapular stabilization 2. Neuro: peripheral polyneuropathy- optimize diabetic control -hx of 3 CVAs, c/u ASA and statin therapy 3. Vasc: s/p right AKA 06-24-19, vasc consulted, s/p course of Zosyn- CRP WNL and leukocytosis resolved -ok to remove greg after 3 weeks, 07-15-18 4. Cardiac- recent ECHO no systolic/diastolic CHF -HTN- c/u lisinopril -medicine consulted to assist in management 5. Resp: encourage incentive spirometry, monitor for infection -educate on smoking cessation 6. GI ppx: protonix 7. DVT ppx: lovenox 8. Pain: tylenol, gabapentin, oxycodone 9. Psych: PTSD c/u Xanax prn, trazodone for insomnia 10. Endo: c/u metformin and ISS 10. Dispo: TBD Allergies Coded Allergies: ibuprofen (Verified Allergy, Severe, TROUBLE BREATHING, 04/04/19) strawberry (Verified Allergy, Severe, THROAT SWELLING, 04/04/19) Vital Signs Vital Signs Date Time Temp Pulse Resp B/P (MAP) Pulse Ox O2 Delivery O2 Flow Rate FiO2 07/14/19 09:21 17 07/14/19 06:00 97.8 59 137/73 (94) 97 Room Air Laboratory Data CBC/BMP Laboratory Tests 07/14/19 10:19 Labs 24H Laboratory Tests 2 07/13/19 16:37: Bedside Glucose (Misc Panel) 155H 07/14/19 06:05: Bedside Glucose (Misc Panel) 125H 07/14/19 10:19: Immature Granulocyte % (Auto) 0.5, Neutrophils (%) (Auto) 69.6H, Lymphocytes (%) (Auto) 16.1L, Monocytes (%) (Auto) 7.3H, Eosinophils (%) (Auto) 5.3H, Basophils (%) (Auto) 1.2H, Neutrophils # (Auto) 7.1, Lymphocytes # (Auto) 1.6, Monocytes # (Auto) 0.7, Eosinophils # (Auto) 0.5, Basophils # (Auto) 0.1, Nucleated Red Blood Cells % (auto) 0.0, Anion Gap 8, Glomerular Filtration Rate > 60.0, Calcium Level 9.5 Current Medications Current Medications Current Medications Medications (Trade) Dose Ordered Sig/Jess Route PRN Reason Start Time Stop Time Status Last Admin Dose Admin Acetaminophen (Tylenol Tab) 1,000 mg TID PO 06/27/19 16:00 07/14/19 08:50 Aspirin (Ecotrin) 81 mg DAILY PO 06/28/19 09:00 07/14/19 08:49 Atorvastatin Calcium (Lipitor) 80 mg QHS PO 06/27/19 21:00 07/13/19 20:05 Dextrose (Dextrose 50%) 25 ml ASDIRECTED PRN IV SEE LABEL COMMENTS 06/27/19 15:45 07/01/19 10:21 DC Dextrose (Dextrose 50%) 25 ml ASDIRECTED PRN IV SEE LABEL COMMENTS 07/01/19 10:30 07/08/19 12:47 DC Dextrose (Dextrose 50%) 25 ml ASDIRECTED PRN IV SEE LABEL COMMENTS 07/08/19 13:00 Diazepam (Valium) 2.5 mg Q8HP PRN PO SPASMS 06/27/19 15:45 07/10/19 13:39 DC 06/28/19 20:08 Docusate Sodium (Colace) 100 mg BID PO 06/27/19 21:00 07/14/19 08:49 Enoxaparin Sodium (Lovenox) 40 mg DAILY SC 06/28/19 09:00 07/14/19 08:53 Gabapentin (Neurontin) 100 mg QHS PO 06/27/19 21:00 06/27/19 16:34 DC Gabapentin (Neurontin) 100 mg TID PO 06/27/19 21:00 06/29/19 11:03 DC 06/29/19 08:11 Gabapentin (Neurontin) 200 mg BID@0900,1500 PO 06/29/19 15:00 07/01/19 10:21 DC 07/01/19 08:22 Gabapentin (Neurontin) 300 mg QHS PO 06/29/19 21:00 07/01/19 10:21 DC 06/30/19 20:57 Gabapentin (Neurontin) 300 mg TID PO 07/01/19 16:00 07/14/19 08:49 Glucagon (Glucagon) 1 mg ASDIRECTED PRN SC SEE LABEL COMMENTS 06/27/19 15:45 07/01/19 10:21 DC Glucagon (Glucagon) 1 mg ASDIRECTED PRN SC SEE LABEL COMMENTS 07/01/19 10:30 07/08/19 12:47 DC Glucagon (Glucagon) 1 mg ASDIRECTED PRN SC SEE LABEL COMMENTS 07/08/19 13:00 Glucose (Glucose) 16 GM ASDIRECTED PRN PO SEE LABEL COMMENTS 06/27/19 15:45 07/01/19 10:21 DC Glucose (Glucose) 16 GM ASDIRECTED PRN PO SEE LABEL COMMENTS 07/01/19 10:30 07/08/19 12:47 DC Glucose (Glucose) 16 GM ASDIRECTED PRN PO SEE LABEL COMMENTS 07/08/19 13:00 Insulin Detemir (Levemir Insulin) 12 units BID SC 06/27/19 21:00 06/29/19 15:32 DC 06/29/19 08:11 Insulin Detemir (Levemir Insulin) 14 units BID SC 06/29/19 21:00 07/01/19 10:21 DC 07/01/19 08:18 Insulin Human Lispro (HumaLOG INSULIN) SEE PROTOCOL TABLE AC MD 06/27/19 17:30 07/01/19 10:21 DC 07/01/19 08:18 Insulin Human Lispro (HumaLOG INSULIN) SEE PROTOCOL TABLE AC MD 07/01/19 12:00 07/08/19 12:47 DC 07/08/19 12:27 Insulin Human Lispro (HumaLOG INSULIN) [facility] 06/27/19 21:00 07/01/19 10:21 DC Insulin Human Lispro (HumaLOG INSULIN) [facility]OCOL [facility] 07/01/19 21:00 07/08/19 12:47 DC Lisinopril (Prinivil) 10 mg BID PO 06/27/19 21:00 07/14/19 08:49 Magnesium Hydroxide (Milk Of Magnesia) 30 ml DAILYPRN PRN PO CONSTIPATION 06/27/19 15:45 Metformin HCl (Glucophage) 500 mg BID@08,18 PO 07/01/19 18:00 07/14/19 08:49 Miscellaneous (Unresolved Clarification Entry) SEE LABEL COMMENTS DAILY XX 07/04/19 09:00 07/04/19 13:20 DC 07/04/19 09:00 Miscellaneous (Unresolved Clarification Entry) SEE LABEL COMMENTS DAILY XX 07/10/19 09:00 07/10/19 13:44 DC Nystatin (Mycostatin Powder, Nystop) top of left foot DAILY TOP 06/28/19 09:00 06/28/19 10:51 DC Oxycodone HCl (Roxicodone, Oxyir) 5 mg 0800,1200,1600,2000 PO 06/29/19 08:00 07/14/19 08:51 Oxycodone HCl (Roxicodone, Oxyir) 5 mg Q4HP PRN PO PAIN 06/27/19 15:45 06/29/19 08:30 DC 06/28/19 21:44 Oxycodone HCl (Roxicodone, Oxyir) 5 mg QHS PRN PO PAIN 06/29/19 00:00 Pantoprazole Sodium (Protonix) 40 mg DAILY PO 06/28/19 09:00 07/14/19 08:49 Senna (Senokot) 1 tab QHS PO 06/27/19 21:00 07/13/19 20:04 Sodium Chloride 1,000 ml @ 80 mls/hr [id number] IV 07/01/19 15:00 07/02/19 07:05 DC 07/02/19 03:28 Sodium Chloride (Saline Lock Flush) 2 ml ASDIRECTED PRN IV SEE LABEL COMMENTS 07/01/19 14:30 07/05/19 20:23 DC Sodium Chloride (Saline Lock Flush) 2 ml SLF IV 07/01/19 14:00 07/05/19 20:23 DC 07/05/19 05:55 Trazodone HCl (Desyrel) 100 mg QHSP PRN PO INSOMNIA 06/27/19 15:45 SABRINA LOCKETT MD Jul 14, 2019 11:48
[2019-07-14 13:23] LABS: C REACTIVE PROTEIN QUANTITATIV < 0.30 MG/DL (0.00-0.30)
[2019-07-14 14:00] VITALS: BP 109/50
[2019-07-14 21:16] VITALS: BP 129/60
[2019-07-14] MEDS: ATORVASTATIN 20 MG TAB PO SCH (21:18)
[2019-07-14] MEDS: SENNA 8.6 MG TAB (SENOKOT) PO SCH (21:19)
[2019-07-15 06:00] VITALS: BP 139/64
[2019-07-15] MEDS: ENOXAPARIN 40 MG/0.4 ML SYRINGE (J1650) SC SCH (09:20)
[2019-07-15] MEDS: lisinopriL 10 MG TAB PO SCH ×2 (09:21→20:11)
[2019-07-15] MEDS: ASPIRIN 81 MG ENTERIC TAB PO SCH (09:21)
[2019-07-15] MEDS: DOCUSATE SODIUM 100 MG CAP PO SCH ×2 (09:21→20:10)
[2019-07-15] MEDS: GABAPENTIN 300 MG CAP PO SCH ×3 (09:21→20:11)
[2019-07-15] MEDS: metFORMIN (GLUCOPHAGE) 500 MG TAB PO SCH ×2 (09:21→17:09)
[2019-07-15] MEDS: ACETAMINOPHEN 500 MG TAB PO SCH ×3 (09:21→20:11)
[2019-07-15] MEDS: PANTOPRAZOLE 40MG TAB (PROTONIX) PO SCH (09:21)
[2019-07-15] MEDS: oxyCODONE 5MG TAB PO SCH ×4 (09:21→20:11)
[2019-07-15 14:00] VITALS: BP 133/60
--- NOTE | 2019-07-15 16:19 | IPNPDOC ---
PM&R Progress Note DATE OF SERVICE: Jul 15, 2019 Grocery Specialist Progress Note Subjective: Patient reporting he is feeling well today and is ready to go home next Thursday. REVIEW OF SYSTEMS: The following is a completed review of systems and has been reviewed. Review of systems otherwise unremarkable. PAIN: Patient self reports right residual limb pain EYES: No recent vision changes EARS, NOSE, & THROAT: No throat pain, or dysphagia, or rhinorrhea CARDIOVASCULAR: Denies chest pain or palpitations PULMONARY: Denies shortness of breath GASTROINTESTINAL: Denies constipation/diarrhea GENITOURINARY: denies dysuria MUSCULOSKELETAL: right AKA NEUROLOGICAL:+peripheral polyneuropathy HEMATOLOGICAL: denies easy bruising SKIN: right AKA incision PSYCHIATRIC: Unremarkable All other review of systems found to be negative. PHYSICAL EXAMINATION: VITAL SIGNS: Please see below. GENERAL: Pleasant and cooperative. No acute distress. thin HEENT: PERRL. Extraocular movements intact. Clear conjunctiva CARDIOVASCULAR: Regular rate and rhythm. No murmurs, rubs, or gallops LUNGS: Clear to auscultation bilaterally. No wheezes. No rhonchi ABDOMEN: Soft, nontender, nondistended. Positive bowel sounds. Normal active bowel sounds NEUROLOGICAL: Alert and oriented times three. Cranial nerves II through XII grossly intact. Sensation diminished left lower extremity in stocking pattern EXTREMITIES: 5\5 strength bilateral upper extremities. 5\5 strength right hip flexion. 5/5 strength in left lower extremity. SKIN: right AKA incision, c/d/i no carlos eduardo-incision maceration or drainage ASSESSMENT:68-year-old M with past medical history of PVD who presents status post right AKA. PLAN: 1. Rehab- PT advance gait training, limb care, maintain ROM of right hip, incorporate prone position for hip extension, approaching Mod-I from wheelchair level OT- advance ADL, maintain rom/strength/stretch bilat UE, scapular stabilization 2. Neuro: peripheral polyneuropathy- optimize diabetic control -hx of 3 CVAs, c/u ASA and statin therapy 3. Vasc: s/p right AKA 06-24-19, vasc consulted, s/p course of Zosyn- CRP WNL and leukocytosis resolved -greg removed 4. Cardiac- recent ECHO no systolic/diastolic CHF -HTN- c/u lisinopril -medicine consulted to assist in management 5. Resp: encourage incentive spirometry, monitor for infection -educate on smoking cessation 6. GI ppx: protonix 7. DVT ppx: lovenox 8. Pain: tylenol, gabapentin, oxycodone 9. Psych: PTSD c/u Xanax prn, trazodone for insomnia 10. Endo: c/u metformin and ISS-stable 10. Dispo: 07-19-19 to home DME- patient is wheelchair bound and will need a wheelchair to complete his MRA DLs. He will not be able to complete his MRADLs without one. His home is wheelchair accessible and his family is willing and able to help him use it. Allergies Coded Allergies: ibuprofen (Verified Allergy, Severe, TROUBLE BREATHING, 04/04/19) strawberry (Verified Allergy, Severe, THROAT SWELLING, 04/04/19) Vital Signs Vital Signs Date Time Temp Pulse Resp B/P (MAP) Pulse Ox O2 Delivery O2 Flow Rate FiO2 07/15/19 15:57 16 07/15/19 14:00 98.5 60 133/60 (84) 99 Room Air Laboratory Data Labs 24H Laboratory Tests 2 07/14/19 17:15: Bedside Glucose (Misc Panel) 131H 07/15/19 06:46: Bedside Glucose (Misc Panel) 124H 07/15/19 11:27: Bedside Glucose (Misc Panel) 160H Current Medications Current Medications Current Medications Medications (Trade) Dose Ordered Sig/Jess Route PRN Reason Start Time Stop Time Status Last Admin Dose Admin Acetaminophen (Tylenol Tab) 1,000 mg TID PO 06/27/19 16:00 07/15/19 15:56 Aspirin (Ecotrin) 81 mg DAILY PO 06/28/19 09:00 07/15/19 09:21 Atorvastatin Calcium (Lipitor) 80 mg QHS PO 06/27/19 21:00 07/14/19 21:18 Dextrose (Dextrose 50%) 25 ml ASDIRECTED PRN IV SEE LABEL COMMENTS 06/27/19 15:45 07/01/19 10:21 DC Dextrose (Dextrose 50%) 25 ml ASDIRECTED PRN IV SEE LABEL COMMENTS 07/01/19 10:30 07/08/19 12:47 DC Dextrose (Dextrose 50%) 25 ml ASDIRECTED PRN IV SEE LABEL COMMENTS 07/08/19 13:00 Diazepam (Valium) 2.5 mg Q8HP PRN PO SPASMS 06/27/19 15:45 07/10/19 13:39 DC 06/28/19 20:08 Docusate Sodium (Colace) 100 mg BID PO 06/27/19 21:00 07/15/19 09:21 Enoxaparin Sodium (Lovenox) 40 mg DAILY SC 06/28/19 09:00 07/15/19 09:20 Gabapentin (Neurontin) 100 mg QHS PO 06/27/19 21:00 06/27/19 16:34 DC Gabapentin (Neurontin) 100 mg TID PO 06/27/19 21:00 06/29/19 11:03 DC 06/29/19 08:11 Gabapentin (Neurontin) 200 mg BID@0900,1500 PO 06/29/19 15:00 07/01/19 10:21 DC 07/01/19 08:22 Gabapentin (Neurontin) 300 mg QHS PO 06/29/19 21:00 07/01/19 10:21 DC 06/30/19 20:57 Gabapentin (Neurontin) 300 mg TID PO 07/01/19 16:00 07/15/19 15:56 Glucagon (Glucagon) 1 mg ASDIRECTED PRN SC SEE LABEL COMMENTS 06/27/19 15:45 07/01/19 10:21 DC Glucagon (Glucagon) 1 mg ASDIRECTED PRN SC SEE LABEL COMMENTS 07/01/19 10:30 07/08/19 12:47 DC Glucagon (Glucagon) 1 mg ASDIRECTED PRN SC SEE LABEL COMMENTS 07/08/19 13:00 Glucose (Glucose) 16 GM ASDIRECTED PRN PO SEE LABEL COMMENTS 06/27/19 15:45 07/01/19 10:21 DC Glucose (Glucose) 16 GM ASDIRECTED PRN PO SEE LABEL COMMENTS 07/01/19 10:30 07/08/19 12:47 DC Glucose (Glucose) 16 GM ASDIRECTED PRN PO SEE LABEL COMMENTS 07/08/19 13:00 Insulin Detemir (Levemir Insulin) 12 units BID SC 06/27/19 21:00 06/29/19 15:32 DC 06/29/19 08:11 Insulin Detemir (Levemir Insulin) 14 units BID SC 06/29/19 21:00 07/01/19 10:21 DC 07/01/19 08:18 Insulin Human Lispro (HumaLOG INSULIN) SEE PROTOCOL TABLE AC ME 06/27/19 17:30 07/01/19 10:21 DC 07/01/19 08:18 Insulin Human Lispro (HumaLOG INSULIN) SEE PROTOCOL TABLE AC ME 07/01/19 12:00 07/08/19 12:47 DC 07/08/19 12:27 Insulin Human Lispro (HumaLOG INSULIN) [facility] 06/[facility] 21:00 07/01/19 10:21 DC Insulin Human Lispro (HumaLOG INSULIN) [facility]OCOL [facility] 21:00 07/08/19 12:47 DC Lisinopril (Prinivil) 10 mg BID PO 06/27/19 21:00 07/15/19 09:21 Magnesium Hydroxide (Milk Of Magnesia) 30 ml DAILYPRN PRN PO CONSTIPATION 06/27/19 15:45 Metformin HCl (Glucophage) 500 mg BID@ PO 07/01/19 18:00 07/15/19 09:21 Miscellaneous (Unresolved Clarification Entry) SEE LABEL COMMENTS DAILY XX 07/04/19 09:00 07/04/19 13:20 DC 07/04/19 09:00 Miscellaneous (Unresolved Clarification Entry) SEE LABEL COMMENTS DAILY XX 07/10/19 09:00 07/10/19 13:44 DC Nystatin (Mycostatin Powder, Nystop) top of left foot DAILY TOP 06/28/19 09:00 06/28/19 10:51 DC Oxycodone HCl (Roxicodone, Oxyir) 5 mg 0800,1200,1600,2000 PO 06/29/19 08:00 07/15/19 15:57 Oxycodone HCl (Roxicodone, Oxyir) 5 mg Q4HP PRN PO PAIN 06/27/19 15:45 06/29/19 08:30 DC 06/28/19 21:44 Oxycodone HCl (Roxicodone, Oxyir) 5 mg QHS PRN PO PAIN 06/29/19 00:00 Pantoprazole Sodium (Protonix) 40 mg DAILY PO 06/28/19 09:00 07/15/19 09:21 Senna (Senokot) 1 tab QHS PO 06/27/19 21:00 07/14/19 21:19 Sodium Chloride 1,000 ml @ 80 mls/hr [id number] IV 07/01/19 15:00 07/02/19 07:05 DC 07/02/19 03:28 Sodium Chloride (Saline Lock Flush) 2 ml ASDIRECTED PRN IV SEE LABEL COMMENTS 07/01/19 14:30 07/05/19 20:23 DC Sodium Chloride (Saline Lock Flush) 2 ml SLF IV 07/01/19 14:00 07/05/19 20:23 DC 07/05/19 05:55 Trazodone HCl (Desyrel) 100 mg QHSP PRN PO INSOMNIA 06/27/19 15:45 SABRINA LOCKETT MD Jul 15, 2019 16:19
[2019-07-15 20:00] VITALS: BP 125/58
[2019-07-15] MEDS: SENNA 8.6 MG TAB (SENOKOT) PO SCH (20:10)
[2019-07-15] MEDS: ATORVASTATIN 20 MG TAB PO SCH (20:11)
[2019-07-16 06:00] VITALS: BP 138/63
[2019-07-16 06:43] LABS: BASO # 0.1 10^3/uL (0.0-0.2); BASO % 1.2 % (0.0-1.0); EOS # 0.6 10^3/uL (0.0-0.5); EOS % 7.7 % (0.0-3.0); HEMATOCRIT 34.8 % (42.0-52.0); HEMOGLOBIN 10.9 g/dl (13.5-17.5); LYMPH # 1.6 10^3/uL (1.5-5.0); LYMPH % 20.2 % (24.0-44.0); MEAN CORPUSCULAR HEMOGLOBIN 26.8 pg (27.0-33.0); MEAN CORPUSCULAR HGB CONC 31.3 g/dl (32.0-36.5); MEAN CORPUSCULAR VOLUME 85.7 fl (80.0-96.0); MONO # 0.9 10^3/uL (0.0-0.8); MONO % 10.7 % (0.0-5.0); NEUTROPHILS # 4.8 10^3/uL (1.5-8.5); NEUTROPHILS % 59.7 % (36.0-66.0); PLATELET COUNT, AUTOMATED 263 10^3/uL (150-450); RED BLOOD COUNT 4.06 10^6/uL (4.30-6.10); WHITE BLOOD COUNT 8.1 10^3/uL (4.0-10.0)
[2019-07-16] MEDS: ENOXAPARIN 40 MG/0.4 ML SYRINGE (J1650) SC SCH (09:05)
[2019-07-16] MEDS: DOCUSATE SODIUM 100 MG CAP PO SCH ×2 (09:05→20:29)
[2019-07-16] MEDS: ASPIRIN 81 MG ENTERIC TAB PO SCH (09:05)
[2019-07-16] MEDS: PANTOPRAZOLE 40MG TAB (PROTONIX) PO SCH (09:05)
[2019-07-16] MEDS: lisinopriL 10 MG TAB PO SCH ×2 (09:05→20:29)
[2019-07-16] MEDS: ACETAMINOPHEN 500 MG TAB PO SCH ×3 (09:06→20:28)
[2019-07-16] MEDS: GABAPENTIN 300 MG CAP PO SCH ×3 (09:06→20:29)
[2019-07-16] MEDS: metFORMIN (GLUCOPHAGE) 500 MG TAB PO SCH ×2 (09:06→17:09)
[2019-07-16] MEDS: oxyCODONE 5MG TAB PO SCH ×4 (09:07→23:11)
[2019-07-16 20:00] VITALS: BP 117/56
[2019-07-16] MEDS: SENNA 8.6 MG TAB (SENOKOT) PO SCH (20:29)
[2019-07-16] MEDS: ATORVASTATIN 20 MG TAB PO SCH (20:29)
[2019-07-17 06:00] VITALS: BP 138/61
[2019-07-17] MEDS: metFORMIN (GLUCOPHAGE) 500 MG TAB PO SCH ×2 (08:27→17:53)
[2019-07-17] MEDS: ENOXAPARIN 40 MG/0.4 ML SYRINGE (J1650) SC SCH (08:27)
[2019-07-17] MEDS: ASPIRIN 81 MG ENTERIC TAB PO SCH (08:27)
[2019-07-17] MEDS: DOCUSATE SODIUM 100 MG CAP PO SCH ×2 (08:28→20:08)
[2019-07-17] MEDS: ACETAMINOPHEN 500 MG TAB PO SCH ×3 (08:28→20:09)
[2019-07-17] MEDS: oxyCODONE 5MG TAB PO SCH ×4 (08:28→20:07)
[2019-07-17] MEDS: lisinopriL 10 MG TAB PO SCH ×2 (08:29→20:08)
[2019-07-17] MEDS: PANTOPRAZOLE 40MG TAB (PROTONIX) PO SCH (08:29)
[2019-07-17] MEDS: GABAPENTIN 300 MG CAP PO SCH ×3 (08:29→20:08)
[2019-07-17 14:00] VITALS: BP 123/56
--- NOTE | 2019-07-17 16:53 | IPNPDOC ---
PM&R Progress Note DATE OF SERVICE: Jul 17, 2019 Director Client Progress Note Subjective: Patient reporting his residual limb pain is overall better although still present. He feels well overall and comfortable wrapping his limb. REVIEW OF SYSTEMS: The following is a completed review of systems and has been reviewed. Review of systems otherwise unremarkable. PAIN: Patient self reports right residual limb pain EYES: No recent vision changes EARS, NOSE, & THROAT: No throat pain, or dysphagia, or rhinorrhea CARDIOVASCULAR: Denies chest pain or palpitations PULMONARY: Denies shortness of breath GASTROINTESTINAL: Denies constipation/diarrhea GENITOURINARY: denies dysuria MUSCULOSKELETAL: right AKA NEUROLOGICAL:+peripheral polyneuropathy HEMATOLOGICAL: denies easy bruising SKIN: right AKA incision PSYCHIATRIC: Unremarkable All other review of systems found to be negative. PHYSICAL EXAMINATION: VITAL SIGNS: Please see below. GENERAL: Pleasant and cooperative. No acute distress. thin HEENT: PERRL. Extraocular movements intact. Clear conjunctiva CARDIOVASCULAR: Regular rate and rhythm. No murmurs, rubs, or gallops LUNGS: Clear to auscultation bilaterally. No wheezes. No rhonchi ABDOMEN: Soft, nontender, nondistended. Positive bowel sounds. Normal active bowel sounds NEUROLOGICAL: Alert and oriented times three. Cranial nerves II through XII grossly intact. Sensation diminished left lower extremity in stocking pattern EXTREMITIES: 5\5 strength bilateral upper extremities. 5\5 strength right hip flexion. 5/5 strength in left lower extremity. SKIN: right AKA incision, not examined today ASSESSMENT:68-year-old M with past medical history of PVD who presents status post right AKA. PLAN: 1. Rehab- PT advance gait training, limb care, maintain ROM of right hip, incorporate prone position for hip extension, approaching Mod-I from wheelchair level OT- advance ADL, maintain rom/strength/stretch bilat UE, scapular stabilization 2. Neuro: peripheral polyneuropathy- optimize diabetic control -hx of 3 CVAs, c/u ASA and statin therapy 3. Vasc: s/p right AKA 06-24-19, vasc consulted, s/p course of Zosyn- CRP WNL and leukocytosis resolved -greg removed 4. Cardiac- recent ECHO no systolic/diastolic CHF -HTN- c/u lisinopril -medicine consulted to assist in management 5. Resp: encourage incentive spirometry, monitor for infection -educate on smoking cessation 6. GI ppx: protonix 7. DVT ppx: lovenox 8. Pain: tylenol, gabapentin, oxycodone 9. Psych: PTSD c/u Xanax prn, trazodone for insomnia 10. Endo: c/u metformin and ISS-stable 10. Dispo: 07-19-19 to home DME- patient is wheelchair bound and will need a wheelchair to complete his MRADLs. He will not be able to complete his MRADLs without one. His home is wheelchair accessible and his family is willing and able to help him use it. Allergies Coded Allergies: ibuprofen (Verified Allergy, Severe, TROUBLE BREATHING, 04/04/19) strawberry (Verified Allergy, Severe, THROAT SWELLING, 04/04/19) Vital Signs Vital Signs Date Time Temp Pulse Resp B/P (MAP) Pulse Ox O2 Delivery O2 Flow Rate FiO2 07/17/19 16:26 18 Room Air 07/17/19 14:00 98.4 63 123/56 (78) 96 Laboratory Data Labs 24H Laboratory Tests 2 07/16/19 17:05: Bedside Glucose (Misc Panel) 172H 07/17/19 05:32: Bedside Glucose (Misc Panel) 144H 07/17/19 16:32: Bedside Glucose (Misc Panel) 124H Current Medications Current Medications Current Medications Medications (Trade) Dose Ordered Sig/Jess Route PRN Reason Start Time Stop Time Status Last Admin Dose Admin Acetaminophen (Tylenol Tab) 1,000 mg TID PO 06/27/19 16:00 07/17/19 15:54 Aspirin (Ecotrin) 81 mg DAILY PO 06/28/19 09:00 07/17/19 08:27 Atorvastatin Calcium (Lipitor) 80 mg QHS PO 06/27/19 21:00 07/16/19 20:29 Dextrose (Dextrose 50%) 25 ml ASDIRECTED PRN IV SEE LABEL COMMENTS 06/27/19 15:45 07/01/19 10:21 DC Dextrose (Dextrose 50%) 25 ml ASDIRECTED PRN IV SEE LABEL COMMENTS 07/01/19 10:30 07/08/19 12:47 DC Dextrose (Dextrose 50%) 25 ml ASDIRECTED PRN IV SEE LABEL COMMENTS 07/08/19 13:00 Diazepam (Valium) 2.5 mg Q8HP PRN PO SPASMS 06/27/19 15:45 07/10/19 13:39 DC 06/28/19 20:08 Docusate Sodium (Colace) 100 mg BID PO 06/27/19 21:00 07/17/19 08:28 Enoxaparin Sodium (Lovenox) 40 mg DAILY SC 06/28/19 09:00 07/17/19 08:27 Gabapentin (Neurontin) 100 mg QHS PO 06/27/19 21:00 06/27/19 16:34 DC Gabapentin (Neurontin) 100 mg TID PO 06/27/19 21:00 06/29/19 11:03 DC 06/29/19 08:11 Gabapentin (Neurontin) 200 mg BID@0900,1500 PO 06/29/19 15:00 07/01/19 10:21 DC 07/01/19 08:22 Gabapentin (Neurontin) 300 mg QHS PO 06/29/19 21:00 07/01/19 10:21 DC 06/30/19 20:57 Gabapentin (Neurontin) 300 mg TID PO 07/01/19 16:00 07/17/19 15:55 Glucagon (Glucagon) 1 mg ASDIRECTED PRN SC SEE LABEL COMMENTS 06/27/19 15:45 07/01/19 10:21 DC Glucagon (Glucagon) 1 mg ASDIRECTED PRN SC SEE LABEL COMMENTS 07/01/19 10:30 07/08/19 12:47 DC Glucagon (Glucagon) 1 mg ASDIRECTED PRN SC SEE LABEL COMMENTS 07/08/19 13:00 Glucose (Glucose) 16 GM ASDIRECTED PRN PO SEE LABEL COMMENTS 06/27/19 15:45 07/01/19 10:21 DC Glucose (Glucose) 16 GM ASDIRECTED PRN PO SEE LABEL COMMENTS 07/01/19 10:30 07/08/19 12:47 DC Glucose (Glucose) 16 GM ASDIRECTED PRN PO SEE LABEL COMMENTS 07/08/19 13:00 Insulin Detemir (Levemir Insulin) 12 units BID SC 06/27/19 21:00 06/29/19 15:32 DC 06/29/19 08:11 Insulin Detemir (Levemir Insulin) 14 units BID SC 06/29/19 21:00 07/01/19 10:21 DC 07/01/19 08:18 Insulin Human Lispro (HumaLOG INSULIN) SEE PROTOCOL TABLE AC ME 06/27/19 17:30 07/01/19 10:21 DC 07/01/19 08:18 Insulin Human Lispro (HumaLOG INSULIN) SEE PROTOCOL TABLE AC ME 07/01/19 12:00 07/08/19 12:47 DC 07/08/19 12:27 Insulin Human Lispro (HumaLOG INSULIN) [facility] 06/27/19 21:00 07/01/19 10:21 DC Insulin Human Lispro (HumaLOG INSULIN) SEE PROTOCOL TABLE QHS ME 07/01/19 21:00 07/08/19 12:47 DC Lisinopril (Prinivil) 10 mg BID PO 06/27/19 21:00 07/17/19 08:29 Magnesium Hydroxide (Milk Of Magnesia) 30 ml DAILYPRN PRN PO CONSTIPATION 06/27/19 15:45 Metformin HCl (Glucophage) 500 mg BID@18 PO 07/01/19 18:00 07/17/19 08:27 Miscellaneous (Unresolved Clarification Entry) SEE LABEL COMMENTS DAILY XX 07/16/19 09:00 07/17/19 13:33 DC Miscellaneous (Unresolved Clarification Entry) SEE LABEL COMMENTS DAILY XX 07/04/19 09:00 07/04/19 13:20 DC 07/04/19 09:00 Miscellaneous (Unresolved Clarification Entry) SEE LABEL COMMENTS DAILY XX 07/10/19 09:00 07/10/19 13:44 DC Nystatin (Mycostatin Powder, Nystop) top of left foot DAILY TOP 06/28/19 09:00 06/28/19 10:51 DC Oxycodone HCl (Roxicodone, Oxyir) 5 mg 0800,1200,1600,2000 PO 06/29/19 08:00 07/17/19 15:54 Oxycodone HCl (Roxicodone, Oxyir) 5 mg Q4HP PRN PO PAIN 06/27/19 15:45 06/29/19 08:30 DC 06/28/19 21:44 Oxycodone HCl (Roxicodone, Oxyir) 5 mg QHS PRN PO PAIN 06/29/19 00:00 Pantoprazole Sodium (Protonix) 40 mg DAILY PO 06/28/19 09:00 07/17/19 08:29 Senna (Senokot) 1 tab QHS PO 06/27/19 21:00 07/16/19 20:29 Sodium Chloride 1,000 ml @ 80 mls/hr [id number] IV 07/01/19 15:00 07/02/19 07:05 DC 07/02/19 03:28 Sodium Chloride (Saline Lock Flush) 2 ml ASDIRECTED PRN IV SEE LABEL COMMENTS 07/01/19 14:30 07/05/19 20:23 DC Sodium Chloride (Saline Lock Flush) 2 ml SLF IV 07/01/19 14:00 07/05/19 20:23 DC 07/05/19 05:55 Trazodone HCl (Desyrel) 100 mg QHSP PRN PO INSOMNIA 06/27/19 15:45 SABRINA LOCKETT MD Jul 17, 2019 16:53
[2019-07-17 20:00] VITALS: BP 126/57
[2019-07-17] MEDS: ATORVASTATIN 20 MG TAB PO SCH (20:08)
[2019-07-17] MEDS: SENNA 8.6 MG TAB (SENOKOT) PO SCH (20:08)
[2019-07-18 05:57] VITALS: BP 129/64
[2019-07-18] MEDS: ACETAMINOPHEN 500 MG TAB PO SCH ×3 (09:08→21:09)
[2019-07-18] MEDS: ASPIRIN 81 MG ENTERIC TAB PO SCH (09:08)
[2019-07-18] MEDS: PANTOPRAZOLE 40MG TAB (PROTONIX) PO SCH (09:09)
[2019-07-18] MEDS: GABAPENTIN 300 MG CAP PO SCH ×3 (09:09→21:10)
[2019-07-18] MEDS: metFORMIN (GLUCOPHAGE) 500 MG TAB PO SCH ×2 (09:09→17:01)
[2019-07-18] MEDS: oxyCODONE 5MG TAB PO SCH ×4 (09:09→21:10)
[2019-07-18] MEDS: DOCUSATE SODIUM 100 MG CAP PO SCH ×2 (09:09→21:09)
[2019-07-18] MEDS: lisinopriL 10 MG TAB PO SCH ×2 (09:09→21:10)
[2019-07-18] MEDS: ENOXAPARIN 40 MG/0.4 ML SYRINGE (J1650) SC SCH (09:10)
[2019-07-18] MEDS ORDERED: LISI10TA4 PO (10:16)
[2019-07-18] MEDS ORDERED: GLUC500T PO (10:16)
[2019-07-18] MEDS ORDERED: TRAZ10TA PO (10:16)
[2019-07-18] MEDS ORDERED: OXYC-517 PO (10:16)
[2019-07-18] MEDS ORDERED: GABA-843 PO (10:16)
[2019-07-18] MEDS ORDERED: ATOR1TAB21 PO (10:16)
[2019-07-18] MEDS ORDERED: ASPI81TAEC PO (10:16)
--- NOTE | 2019-07-18 12:59 | IPNPDOC ---
PM&R Progress Note DATE OF SERVICE: Jul 18, 2019 Head Charrer Progress Note Subjective: Patient states he is in good spirits and ready to go home tomorrow. REVIEW OF SYSTEMS: The following is a completed review of systems and has been reviewed. Review of systems otherwise unremarkable. PAIN: Patient self reports right residual limb pain EYES: No recent vision changes EARS, NOSE, & THROAT: No throat pain, or dysphagia, or rhinorrhea CARDIOVASCULAR: Denies chest pain or palpitations PULMONARY: Denies shortness of breath GASTROINTESTINAL: Denies constipation/diarrhea GENITOURINARY: denies dysuria MUSCULOSKELETAL: right AKA NEUROLOGICAL:+peripheral polyneuropathy HEMATOLOGICAL: denies easy bruising SKIN: right AKA incision PSYCHIATRIC: Unremarkable All other review of systems found to be negative. PHYSICAL EXAMINATION: VITAL SIGNS: Please see below. GENERAL: Pleasant and cooperative. No acute distress. thin HEENT: PERRL. Extraocular movements intact. Clear conjunctiva CARDIOVASCULAR: Regular rate and rhythm. No murmurs, rubs, or gallops LUNGS: Clear to auscultation bilaterally. No wheezes. No rhonchi ABDOMEN: Soft, nontender, nondistended. Positive bowel sounds. Normal active bowel sounds NEUROLOGICAL: Alert and oriented times three. Cranial nerves II through XII grossly intact. Sensation diminished left lower extremity in stocking pattern EXTREMITIES: 5\5 strength bilateral upper extremities. 5\5 strength right hip flexion. 5/5 strength in left lower extremity. SKIN: right AKA incision, not examined today ASSESSMENT:68-year-old M with past medical history of PVD who presents status post right AKA. PLAN: 1. Rehab- PT advance gait training, limb care, maintain ROM of right hip, incorporate prone position for hip extension, approaching Mod-I from wheelchair level OT- advance ADL, maintain rom/strength/stretch bilat UE, scapular stabilization 2. Neuro: peripheral polyneuropathy- optimize diabetic control -hx of 3 CVAs, c/u ASA and statin therapy 3. Vasc: s/p right AKA 06-24-19, vasc consulted, s/p course of Zosyn- CRP WNL and leukocytosis resolved -greg removed 4. Cardiac- recent ECHO no systolic/diastolic CHF -HTN- c/u lisinopril -medicine consulted to assist in management 5. Resp: encourage incentive spirometry, monitor for infection -educate on smoking cessation 6. GI ppx: protonix 7. DVT ppx: lovenox 8. Pain: tylenol, gabapentin, oxycodone 9. Psych: PTSD c/u Xanax prn, trazodone for insomnia 10. Endo: c/u metformin and ISS-stable 10. Dispo: 07-19-19 to home, progressing towards goals DME- patient is wheelchair bound and will need a wheelchair to complete his MRADLs. He will not be able to complete his MRADLs without one. His home is wheelchair accessible and his family is willing and able to help him use it. Allergies Coded Allergies: ibuprofen (Verified Allergy, Severe, TROUBLE BREATHING, 04/04/19) strawberry (Verified Allergy, Severe, THROAT SWELLING, 04/04/19) Vital Signs Vital Signs Date Time Temp Pulse Resp B/P (MAP) Pulse Ox O2 Delivery O2 Flow Rate FiO2 07/18/19 12:35 18 Room Air 07/18/19 09:09 129/64 07/18/19 05:57 97.4 62 98 Laboratory Data Labs 24H Laboratory Tests 2 07/17/19 16:32: Bedside Glucose (Misc Panel) 124H 07/18/19 06:11: Bedside Glucose (Misc Panel) 140H Current Medications Current Medications Current Medications Medications (Trade) Dose Ordered Sig/Jess Route PRN Reason Start Time Stop Time Status Last Admin Dose Admin Acetaminophen (Tylenol Tab) 1,000 mg TID PO 06/27/19 16:00 07/18/19 09:08 Aspirin (Ecotrin) 81 mg DAILY PO 06/28/19 09:00 07/18/19 09:08 Atorvastatin Calcium (Lipitor) 80 mg QHS PO 06/27/19 21:00 07/17/19 20:08 Dextrose (Dextrose 50%) 25 ml ASDIRECTED PRN IV SEE LABEL COMMENTS 06/27/19 15:45 07/01/19 10:21 DC Dextrose (Dextrose 50%) 25 ml ASDIRECTED PRN IV SEE LABEL COMMENTS 07/01/19 10:30 07/08/19 12:47 DC Dextrose (Dextrose 50%) 25 ml ASDIRECTED PRN IV SEE LABEL COMMENTS 07/08/19 13:00 Diazepam (Valium) 2.5 mg Q8HP PRN PO SPASMS 06/27/19 15:45 07/10/19 13:39 DC 06/28/19 20:08 Docusate Sodium (Colace) 100 mg BID PO 06/27/19 21:00 07/18/19 09:09 Enoxaparin Sodium (Lovenox) 40 mg DAILY SC 06/28/19 09:00 07/18/19 09:10 Gabapentin (Neurontin) 100 mg QHS PO 06/27/19 21:00 06/27/19 16:34 DC Gabapentin (Neurontin) 100 mg TID PO 06/27/19 21:00 06/29/19 11:03 DC 06/29/19 08:11 Gabapentin (Neurontin) 200 mg BID@0900,1500 PO 06/29/19 15:00 07/01/19 10:21 DC 07/01/19 08:22 Gabapentin (Neurontin) 300 mg QHS PO 06/29/19 21:00 07/01/19 10:21 DC 06/30/19 20:57 Gabapentin (Neurontin) 300 mg TID PO 07/01/19 16:00 07/18/19 09:09 Glucagon (Glucagon) 1 mg ASDIRECTED PRN SC SEE LABEL COMMENTS 06/27/19 15:45 07/01/19 10:21 DC Glucagon (Glucagon) 1 mg ASDIRECTED PRN SC SEE LABEL COMMENTS 07/01/19 10:30 07/08/19 12:47 DC Glucagon (Glucagon) 1 mg ASDIRECTED PRN SC SEE LABEL COMMENTS 07/08/19 13:00 Glucose (Glucose) 16 GM ASDIRECTED PRN PO SEE LABEL COMMENTS 06/27/19 15:45 07/01/19 10:21 DC Glucose (Glucose) 16 GM ASDIRECTED PRN PO SEE LABEL COMMENTS 07/01/19 10:30 07/08/19 12:47 DC Glucose (Glucose) 16 GM ASDIRECTED PRN PO SEE LABEL COMMENTS 07/08/19 13:00 Insulin Detemir (Levemir Insulin) 12 units BID SC 06/27/19 21:00 06/29/19 15:32 DC 06/29/19 08:11 Insulin Detemir (Levemir Insulin) 14 units BID SC 06/29/19 21:00 07/01/19 10:21 DC 07/01/19 08:18 Insulin Human Lispro (HumaLOG INSULIN) SEE PROTOCOL TABLE AC SC 06/27/19 17:30 07/01/19 10:21 DC 07/01/19 08:18 Insulin Human Lispro (HumaLOG INSULIN) SEE PROTOCOL TABLE AC [place] 07/01/19 12:00 07/08/19 12:47 DC 07/08/19 12:27 Insulin Human Lispro (HumaLOG INSULIN) [facility] 06/27/[facility] 21:00 07/01/19 10:21 DC Insulin Human Lispro (HumaLOG INSULIN) SEE PROTOCOL TABLE Q[facility] [place] 07/01/19 21:00 07/08/19 12:47 DC Lisinopril (Prinivil) 10 mg BID PO 06/27/19 21:00 07/18/19 09:09 Magnesium Hydroxide (Milk Of Magnesia) 30 ml DAILYPRN PRN PO CONSTIPATION 06/27/19 15:45 Metformin HCl (Glucophage) 500 mg BID@,18 PO 07/01/19 18:00 07/18/19 09:09 Miscellaneous (Unresolved Clarification Entry) SEE LABEL COMMENTS DAILY XX 07/16/19 09:00 07/17/19 13:33 DC Miscellaneous (Unresolved Clarification Entry) SEE LABEL COMMENTS DAILY XX 07/04/19 09:00 07/04/19 13:20 DC 07/04/19 09:00 Miscellaneous (Unresolved Clarification Entry) SEE LABEL COMMENTS DAILY XX 07/10/19 09:00 07/10/19 13:44 DC Nystatin (Mycostatin Powder, Nystop) top of left foot DAILY TOP 06/28/19 09:00 06/28/19 10:51 DC Oxycodone HCl (Roxicodone, Oxyir) 5 mg 0800,1200,1600,2000 PO 06/29/19 08:00 07/18/19 12:35 Oxycodone HCl (Roxicodone, Oxyir) 5 mg Q4HP PRN PO PAIN 06/27/19 15:45 06/29/19 08:30 DC 06/28/19 21:44 Oxycodone HCl (Roxicodone, Oxyir) 5 mg QHS PRN PO PAIN 06/29/19 00:00 Pantoprazole Sodium (Protonix) 40 mg DAILY PO 06/28/19 09:00 07/18/19 09:09 Senna (Senokot) 1 tab QHS PO 06/27/19 21:00 07/17/19 20:08 Sodium Chloride 1,000 ml @ 80 mls/hr [id number] IV 07/01/19 15:00 07/02/19 07:05 DC 07/02/19 03:28 Sodium Chloride (Saline Lock Flush) 2 ml ASDIRECTED PRN IV SEE LABEL COMMENTS 07/01/19 14:30 07/05/19 20:23 DC Sodium Chloride (Saline Lock Flush) 2 ml SLF IV 07/01/19 14:00 07/05/19 20:23 DC 07/05/19 05:55 Trazodone HCl (Desyrel) 100 mg QHSP PRN PO INSOMNIA 06/27/19 15:45 SABRINA LOCKETT MD Jul 18, 2019 12:59
[2019-07-18 15:09] VITALS: BP 102/50
[2019-07-18 20:00] VITALS: BP 132/60
[2019-07-18] MEDS: SENNA 8.6 MG TAB (SENOKOT) PO SCH (21:10)
[2019-07-18] MEDS: ATORVASTATIN 20 MG TAB PO SCH (21:11)
[2019-07-19 06:00] VITALS: BP 142/61
[2019-07-19] MEDS: ENOXAPARIN 40 MG/0.4 ML SYRINGE (J1650) SC SCH (07:46)
[2019-07-19] MEDS: metFORMIN (GLUCOPHAGE) 500 MG TAB PO SCH (07:47)
[2019-07-19] MEDS: ACETAMINOPHEN 500 MG TAB PO SCH (07:47)
[2019-07-19] MEDS: ASPIRIN 81 MG ENTERIC TAB PO SCH (07:47)
[2019-07-19] MEDS: GABAPENTIN 300 MG CAP PO SCH (07:48)
[2019-07-19] MEDS: oxyCODONE 5MG TAB PO SCH (07:48)
[2019-07-19] MEDS: PANTOPRAZOLE 40MG TAB (PROTONIX) PO SCH (07:48)
[2019-07-19] MEDS: DOCUSATE SODIUM 100 MG CAP PO SCH (07:48)
[2019-07-19 07:49] VITALS: BP 142/61
[2019-07-19] MEDS: lisinopriL 10 MG TAB PO SCH (07:49)
--- NOTE | 2019-07-19 12:18 | PMRDS ---
DATE OF ADMISSION: 06/27/2019 DATE OF DISCHARGE: 07/19/2019 CHIEF COMPLAINT/DISCHARGE DIAGNOSIS: Right AKA with peripheral polyneuropathy. HISTORY OF PRESENT ILLNESS: This is a 68-year-old man with a past medical history of diabetes type 2, post-traumatic stress disorder (PTSD), hypertension, tobacco use, history of three CVAs, hyperlipidemia, hypertension who underwent a right profunda to below the knee bypass in March performed by Dr. Salmon and presented to [facility] Emergency Department on 06/20/2019 with gangrene of the foot. He was evaluated by vascular surgery who started him on an IV antibiotics and underwent a right ankle Guillotine on 06/21/2019 and later a right AKA on 06/24/2019 without any postoperative complications. However, he did have some leukocytosis. He was evaluated by therapy and noted to be well below his prior level of function and deemed medically appropriate for discharge to ARU on 06/27/2019. On initial visit the patient reports he is burning pain in his left leg and in his residual limb. He used to take gabapentin for his polyneuropathy and would like to restart this. PAST MEDICAL HISTORY: As per history of present illness. HOSPITAL COURSE: The patient was admitted and enrolled in a comprehensive physical therapy (PT)/occupational therapy (OT) program. He received 24-hour nursing supervision and weekly team meetings were held to discuss his progress. The patient's leukocytosis resolved during his hospital course and his CRP was within normal limits. He continued to have daily wound care with no signs of infection at his residual limb. He was maintained on metformin for his history of diabetes with good control overall. His pain was controlled with oxycodone and gabapentin in addition to Tylenol. The patient made significant gains in therapy and was deemed medically and functionally stable to return home at a wheelchair level. DISCHARGE MEDICATIONS: As per instructions. FUNCTIONAL HISTORY UPON DISCHARGE: The patient was modified independent from a wheelchair level for functional transfers, however standby assist for transfers to the commode and in occupational therapy the patient was modified independent for upper and lower body dressing in addition to mobility. Thank you for this referral.
== END 2019-07-19 12:00 | disposition home health service (06) | DRG 560 ==
LOC: M PM&R 15:10
PROVIDERS: ADMIT Physical Medicine & Rehabilitation; ATTEND Physical Medicine & Rehabilitation
DX: Z47.81 Encounter for orthopedic aftercare following surgical amputation (principal); E11.52 Type 2 diabetes mellitus with diabetic peripheral angiopathy with gangrene; E87.2 Acidosis; Z89.611 Acquired absence of right leg above knee; I10 Essential (primary) hypertension; Z86.73 Personal history of transient ischemic attack (TIA), and cerebral infarction without residual deficits; F17.200 Nicotine dependence, unspecified, uncomplicated; F43.10 Post-traumatic stress disorder, unspecified; E78.5 Hyperlipidemia, unspecified; Z79.899 Other long term (current) drug therapy; Z79.82 Long term (current) use of aspirin; Z88.6 Allergy status to analgesic agent; Z91.018 Allergy to other foods; G47.00 Insomnia, unspecified; F41.9 Anxiety disorder, unspecified

== ENCOUNTER → 2019-11-14 | Outpatient (REF) | payer MEDICARE, MEDICAID ==
[~2019-11-14] MED LIST changes: +ATOR1TAB21 PO; +GABA-843 PO; +GLUC500T PO; -TRAZ-163 PO; +TRAZ-257 PO; +TRAZ1TAB12 PO
[2019-11-14 15:44] LABS: HEMATOCRIT 41.9 % (42.0-52.0); HEMOGLOBIN 13.7 g/dl (13.5-17.5); MEAN CORPUSCULAR HEMOGLOBIN 28.7 pg (27.0-33.0); MEAN CORPUSCULAR HGB CONC 32.7 g/dl (32.0-36.5); MEAN CORPUSCULAR VOLUME 87.7 fl (80.0-96.0); PLATELET COUNT, AUTOMATED 309 10^3/uL (150-450); RED BLOOD COUNT 4.78 10^6/uL (4.30-6.10); WHITE BLOOD COUNT 10.7 10^3/uL (4.0-10.0)
[2019-11-14 15:57] LABS: ALBUMIN 3.7 GM/DL (3.2-5.2); BILIRUBIN,TOTAL 0.2 MG/DL (0.2-1.0); CALCIUM LEVEL 9.5 MG/DL (8.8-10.2); CREATININE FOR GFR 1.5 MG/DL (0.70-1.30); GLOMERULAR FILTRATION RATE 49.7 (>49); MAGNESIUM LEVEL 1.7 MG/DL (1.8-2.4); POTASSIUM SERUM 4.2 MEQ/L (3.5-5.1); TOTAL PROTEIN 7.4 GM/DL (6.4-8.2)
== END ==
LOC: M SHH 15:30
PROVIDERS: ATTEND Internal Medicine
DX: E11.42 Type 2 diabetes mellitus with diabetic polyneuropathy (principal); R60.0 Localized edema; I73.9 Peripheral vascular disease, unspecified

== ENCOUNTER → 2019-12-19 | Outpatient (CLI) | payer MEDICARE, MEDICAID ==
[~2019-12-19] MED LIST changes: +KETO2SHA8 TOP; -KETO2SHA9 TOP
== END ==
LOC: M PT 09:03
PROVIDERS: ATTEND Physician Assistant
DX: Z89.611 Acquired absence of right leg above knee (principal)

== ENCOUNTER → 2019-12-28 | Outpatient (CLI) | payer MEDICARE, MEDICAID ==
[~2019-12-28] MED LIST changes: +AMLO1TAB25 PO; +CLOTR1CR TOP; +FAMO20TA PO; +FURO40TA2 PO; +GABA-282 PO; -GABA-843 PO; +GLIP5TAB8 PO; +JARD1TAB PO; +LISI10TA22 PO; -LISI10TA4 PO; +TAMS1CAP17 PO
--- NOTE | 2019-12-28 13:06 | REP ---
Emergency left lower extremity arterial Doppler ultrasound: History: History of right axillofemoral and fem-fem crossover graft. Unspecified open wound left leg. Findings: Ankle brachial index is very low measured at 0.21. Patent crossover graft is seen into the common femoral artery on the left. Peak systolic flow velocity in the graft is 100 cm/sec. The left superficial femoral artery seen to be occluded. Reverse flow is seen in the distal segment of the superficial femoral artery. The tibioperoneal trunk and the proximal posterior tibial artery on the left could not be seen. Monophasic flow is seen throughout the left lower extremity. Flow is seen in the distal posterior tibial artery and in the anterior tibial artery. Left lower extremity arterial Doppler velocity chart: Left CF A 62 cm/S Profunda 73 Proximal SFA occluded Mid SFA occluded Distal SFA reversed 41-54 cm/sec Popliteal 66 Proximal AT A 32 Tibioperoneal trunk not seen Proximal CONSERVATION EDUCATOR not seen Distal CONSERVATION EDUCATOR 18 Distal AT A 20. Electronically Signed by Santiago Chavez MD 12/28/2019 12:57 P
== END ==
LOC: M RAD 10:47
PROVIDERS: ATTEND Physician Assistant
DX: S81.802A Unspecified open wound, left lower leg, initial encounter (principal); I70.202 Unspecified atherosclerosis of native arteries of extremities, left leg; X58.XXXA Exposure to other specified factors, initial encounter; Y92.9 Unspecified place or not applicable

== ENCOUNTER → 2020-01-12 | Outpatient (CLI) | payer MEDICARE, MEDICAID ==
[~2020-01-12] MED LIST changes: -AMLO1TAB25 PO; -CLOTR1CR TOP; -FAMO20TA PO; -FURO40TA2 PO; -GABA-282 PO; +GABA-843 PO; -GLIP5TAB8 PO; +ISOVUE-370 76% 100ML VIAL As Ordered ONE; -JARD1TAB PO; -LISI10TA22 PO; +LISI10TA4 PO; -TAMS1CAP17 PO
--- NOTE | 2020-01-16 08:00 | REP ---
Clinical: History of atherosclerotic disease with vascular bypass surgery and nonhealing ulcer to the left lower extremity. Technique: CT angiography using 100 ml Isovue 370 intravenous contrast material. Axial imaging with coronal and sagittal re-formations as well as post processing multiplanar MIP reconstructions including bilateral lower extremity runoff. Comparison: 10/01/2018. Findings: The patent right axillofemoral bypass graft is again noted along with patent right to left bifemoral crossover graft vascularizing a patent left profunda, but with complete occlusion to the left common femoral artery. The abdominal aorta demonstrates moderate to significant mixed atheromatous plaquing and scattered noncalcified mural thrombus to the level of bifurcation. The origin of the celiac axis, superior mesenteric artery, and left renal artery appear patent and normal. There is small amount of atheromatous plaquing at the origin of the right renal artery. The left common iliac artery and internal and external iliac arteries are completely occluded. The right external and internal iliac arteries demonstrate significant plaquing with areas of stenosis. There has been subsequent right [id number] amputation at the level of the distal third right femoral diaphysis. The right superficial femoral artery is completely occluded. Atherosclerotic changes noted to the right profunda which appears significantly stenotic with decreased caliber and decreased branch vessels as compared to 2019, but remains patent to the level of the amputation. Left lower extremity demonstrates patent profunda and branch vessels with complete occlusion to the superficial femoral artery through the adductor canal with subsequent revascularization at the level of the popliteal artery via genicular arteries and reversed flow to the level of the distal superficial femoral artery at the level of the femoral metaphysis. There is subsequent three-vessel runoff to the level of the ankle followed by posterior tibial prominence into the foot. The peroneal artery is not visualized past the level of the ankle while the anterior tibial artery demonstrates moderate to significant stenosis but appears patent to the level of the mid foot. Nonangiographic findings through the abdomen and pelvis include fatty infiltration to the liver along with normal spleen, pancreas, and right adrenal gland. Small left adrenal adenoma is again noted and unchanged. The kidneys demonstrate age-related cortical thinning with symmetric renal enhancement as well as stable benign appearing bilateral renal cysts and 2 mm nonobstructing right renal calculus. The gallbladder appears distended with presumed tumefactive sludge/noncalcified stones relatively similar appearance to prior examination. The enteric system is without obstruction or acute inflammatory process. Pelvis demonstrates normal bladder along with moderate prostatomegaly. No ascites. No adenopathy. No free air. Impression: 1. Arterial findings as detailed above. 2. Presumed tumefactive sludge/noncalcified gallstones within the gallbladder. Consider follow-up ultrasound examination as necessary. 3. Stable simple bilateral renal cysts. 4. Stable left adrenal adenoma. 5. Mild/moderate prostatomegaly. Electronically Signed by Stephen Pierce MD 01/16/2020 07:51 A
== END ==
LOC: M RAD 16:17
PROVIDERS: ATTEND Surgery Vascular Surgery
DX: S81.802A Unspecified open wound, left lower leg, initial encounter (principal); Z89.611 Acquired absence of right leg above knee; I70.301 Unspecified atherosclerosis of unspecified type of bypass graft(s) of the extremities, right leg; X58.XXXA Exposure to other specified factors, initial encounter; Y92.9 Unspecified place or not applicable; I70.0 Atherosclerosis of aorta; I70.1 Atherosclerosis of renal artery; N28.1 Cyst of kidney, acquired; D35.02 Benign neoplasm of left adrenal gland; N40.0 Benign prostatic hyperplasia without lower urinary tract symptoms
CPT/HCPCS: 75635; Q9967

== ENCOUNTER → 2020-03-06 | Outpatient (CLI) | payer MEDICARE, MEDICAID ==
[~2020-03-06] MED LIST changes: +FURO40TA2 PO; +GLIP5TAB8 PO; -ISOVUE-370 76% 100ML VIAL As Ordered ONE; +JARD1TAB PO; +TAMS1CAP17 PO
[2020-03-06 19:44] LABS: HEMOGLOBIN A1c 8.7 %
[2020-03-06 19:52] LABS: ALBUMIN 4.1 GM/DL (3.2-5.2); ALT/SGPT 29 U/L (12-78); BILIRUBIN,TOTAL 0.4 MG/DL (0.2-1.0); BLOOD UREA NITROGEN 20 MG/DL (7-18); CALCIUM LEVEL 9.7 MG/DL (8.8-10.2); CARBON DIOXIDE LEVEL 29 MEQ/L (21-32); CHLORIDE LEVEL 103 MEQ/L (98-107); CHOLESTEROL LEVEL 183 MG/DL (<200); CHOLESTEROL RISK RATIO 3.978 (<5); CREATININE FOR GFR 1.12 MG/DL (0.70-1.30); GLOMERULAR FILTRATION RATE > 60.0 (>49); GLUCOSE, FASTING 159 MG/DL (70-100); HDL CHOLESTEROL 46 MG/DL (>40); LDL CHOLESTEROL 116 MG/DL (<100); NON-HDL-C 137 MG/DL; SODIUM LEVEL 137 MEQ/L (136-145); TOTAL PROTEIN 7.7 GM/DL (6.4-8.2); TRIGLYCERIDES LEVEL 106 MG/DL (<150)
== END ==
LOC: M PLALAB 15:10
PROVIDERS: ATTEND Nurse Practitioner Adult Health
DX: E11.42 Type 2 diabetes mellitus with diabetic polyneuropathy (principal); E78.2 Mixed hyperlipidemia
CPT/HCPCS: 36415; 80053; 80061; 83036; G0463

== ENCOUNTER 2020-05-02 09:04 | Inpatient (IN) | payer OTHER, MEDICARE, MEDICAID ==
[2020-05-02] VITALS (12 sets, daily range): BP systolic 82–136; BP diastolic 45–78
[~2020-05-02] VITALS: Ht 160 cm; Wt 66.5 kg
[~2020-05-02 09:04] MED LIST changes: -FURO40TA2 PO; -GLIP5TAB8 PO; -JARD1TAB PO; -TAMS1CAP17 PO
[2020-05-02] MEDS ORDERED: METF10004 PO (09:40)
[2020-05-02] MEDS ORDERED: TRAM50TA2 PO (09:40)
[2020-05-02] MEDS ORDERED: GABA-843 PO (09:40)
[2020-05-02 10:04] LABS: BASO # 0.1 10^3/uL (0.0-0.2); BASO % 0.2 % (0.0-1.0); HEMATOCRIT 39.5 % (42.0-52.0); LYMPH % 3.3 % (24.0-44.0); MEAN CORPUSCULAR HEMOGLOBIN 27.6 pg (27.0-33.0); MEAN CORPUSCULAR HGB CONC 32.9 g/dl (32.0-36.5); MEAN CORPUSCULAR VOLUME 83.9 fl (80.0-96.0); MONO # 3.1 10^3/uL (0.0-0.8); MONO % 10.4 % (0.0-5.0); NEUTROPHILS # 25.3 10^3/uL (1.5-8.5); NEUTROPHILS % 84.7 % (36.0-66.0); PLATELET COUNT, AUTOMATED 280 10^3/uL (150-450); RED BLOOD COUNT 4.71 10^6/uL (4.30-6.10); WHITE BLOOD COUNT 29.9 10^3/uL (4.0-10.0)
[2020-05-02 10:21] LABS: C REACTIVE PROTEIN QUANTITATIV 11.5 MG/DL (0.00-0.30); CALCIUM LEVEL 9.8 MG/DL (8.8-10.2); CREATININE FOR GFR 1.6 MG/DL (0.70-1.30); GLOMERULAR FILTRATION RATE 46.1 (>49); POTASSIUM SERUM 5.3 MEQ/L (3.5-5.1)
[2020-05-02 10:25] LABS: ERYTHROCYTE SEDIMENTATION RATE 35 mm/hr (0-20)
--- NOTE | 2020-05-02 11:22 | REPVR ---
PROCEDURE INFORMATION: Exam: XR Chest, 1 View Exam date and time: 05/02/2020 10:55 AM Age: 69 years old Clinical indication: Chest pain; Additional info: Weakness TECHNIQUE: Imaging protocol: XR of the chest Views: 1 view. COMPARISON: MO Chest, 1 view 06/20/2019 12:43 PM FINDINGS: Lungs: Lung volumes are low, decreased since the prior study, with increased minimal bibasilar opacity which is most likely atelectasis. No dense consolidation or nany pulmonary edema. Pleural space: Unremarkable. No pleural effusion. No pneumothorax. Heart/Mediastinum: Heart size is normal. Vasculature: There is atherosclerotic calcification at the aortic arch. Bones/joints: Minimal degenerative change at the shoulder joints, with small body again seen at the right axillary recess. No acute osseous abnormality. IMPRESSION: 1. Low lung volumes, decreased since the prior study, with increased minimal bibasilar opacity which is most likely atelectasis. No dense consolidation. Electronically signed by: Yin Russell On 05/02/2020 11:21:55 AM
[2020-05-02] MEDS ORDERED: LIDOCAINE 2% 5ML JELLY UROJET TOP ONE (13:30)
[2020-05-02] MEDS ORDERED: PATIROMER SORBITEX CALCIUM 8.4 GM POWDER PACKET (VELTASSA) PO ONE (14:15)
[2020-05-02] MEDS ORDERED: TAMS1CAP17 PO (14:46)
[2020-05-02] MEDS ORDERED: JARD1TAB PO (14:46)
[2020-05-02] MEDS ORDERED: FURO40TA2 PO (14:46)
[2020-05-02] MEDS ORDERED: LISI10TA4 PO (14:46)
[2020-05-02] MEDS ORDERED: GLIP5TAB8 PO (14:46)
[2020-05-02] MEDS ORDERED: NS 1,000 ML IV SCH (15:30)
[2020-05-02] MEDS ORDERED: diphenhydrAMINE CREAM 30GM TOP PRN (16:15)
--- NOTE | 2020-05-02 16:36 | ECGEPIP ---
[facility] - ED Test Date: 2020-05-02 Pat Name: JORDAN MCKEON Department: Room: [place] [address] Gender: Male [employer]: JANIYA : 1950 Requested By: Mike Kelley Order Number: [id number] Reading MD: Juventino Escalera Measurements Intervals [place] Rate: 97 P: 45 OR: 136 QRS: 48 QRSD: 91 T: 53 QT: 322 QTc: 410 Interpretive Statements SINUS RHYTHM Electronically Signed on 05-02-2020 16:36:33 EDT by Juventino Escalera
[2020-05-02] MEDS: GABAPENTIN 300 MG CAP PO SCH ×2 (17:29→20:24)
[2020-05-02] MEDS: TAMSULOSIN 0.4 MG CAP PO SCH (17:29)
--- NOTE | 2020-05-02 17:49 | REPVR ---
PROCEDURE INFORMATION: Exam: US Retroperitoneal Limited, Kidneys Exam date and time: 05/02/2020 4:47 PM Age: 69 years old Clinical indication: Abdominal pain; Acute; Additional info: Tristen TECHNIQUE: Imaging protocol: Real-time ultrasound of the retroperitoneum with image documentation. Examination was focused on the kidneys. COMPARISON: 1. US ABD AORTA SCREENING U/S 11/30/2017 8:[address] ANGIO ABDOMINAL ARTERIES 01/12/2020 4:46:03 PM FINDINGS: Limitations: Study is technically limited by body wall edema and the patient's inability to tolerate decubitus positioning. Right kidney: The right kidney measures 11.4 x 5.2 x 5.5 cm. No hydronephrosis. No echogenic shadowing foci to indicate renal calculi. Exophytic cyst measuring 4.1 x 1.6 by 3.6 cm. No internal echoes are seen. Left kidney: The left kidney measures 10.6 x 4.4 x 5.6 cm. No hydronephrosis. No echogenic shadowing foci to suggest renal calculi. Two cortical cysts which do not clearly have internal echoes are seen at the upper pole of the left kidney, with 1 measuring 2.4 x 2.0 x 1.1 cm, and the other measuring 3.0 x 2.7 x 2.7 cm. These are consistent with simple cysts seen on CT a of the abdomen 01/13/2020. Intraperitoneal space: No free fluid. Bladder: Bladder wall is likely diffusely thickened. Ureteral jets were not visualized. Gallbladder: There is gallbladder sludge, with a gallstone at the gallbladder neck. Gallbladder wall is thickened at 5 mm. Gallbladder is distended. IMPRESSION: 1. Distended gallbladder with gallbladder sludge, gallstone in the gallbladder neck, and gallbladder wall thickening. Recommend correlation with laboratory studies. Consider MRCP follow-up. 2. Simple bilateral renal cysts in comparison with prior CT. 3. No hydronephrosis. 4. Probable diffuse bladder wall thickening which can be seen with infectious or inflammatory cystitis or chronic urinary outlet obstruction. COMMENTS: Consistent with the [employer]'s Incidental Findings Committee white paper (J Am Laura Radiol 2018): Any incidental renal lesion less than 1 cm or classified as too small to characterize, or any incidental cystic renal lesion characterized as simple-appearing, is likely benign. No follow-up imaging is recommended for these lesions per consensus recommendations based on imaging criteria. Electronically signed by: Yin Russell On 05/02/2020 17:48:58 PM
[2020-05-02] MEDS ORDERED: GLUCOSE 4GM CHEW TABLET PO PRN (18:00)
[2020-05-02] MEDS ORDERED: DEXTROSE 50% 50 ML SYRINGE IV PRN (18:00)
[2020-05-02] MEDS ORDERED: GLUCAGON INJ 1MG VIAL SC PRN (18:00)
[2020-05-02] MEDS: HumaLOG INSULIN (NovoLOG) PER UNIT SC SCH (18:18)
--- NOTE | 2020-05-02 19:04 | HPEPDOC ---
General Date of Admission May 02, 2020 at 14:35 Date of Service: May 02, 2020 Chief Complaint The patient is a 69-year-old male admitted with a reason for visit of Tristen,Diabetes,Waekness. Source: Patient History of Present Illness Mr. Khoury is a 69-year-old male with peripheral vascular disease and right BKA who comes to [facility] for left leg weakness. Due to his right BKA, he normally stands on his left leg to urinate. Yesterday evening, it was the first time that he felt so weak that he could not stand to urinate. Today he called his primary who recommended that he come to the ED for evaluation. UA was negative for nitrates, leuk esterase, bacteria. Chest x-ray was not suggestive of infiltrate. We does have a leukocytosis of 29.9. He did not have a fever while in the ED, not tachypneic or tachycardic. When I talked to him he was a poor historian. His history was inconsistent. I told me that yesterday, he suddenly had dry heaves which caused some back pain. He periodically has dry heaves, but tells me that it doesn't happen too often. Otherwise, while in the ED he was found to have a diffuse rash on his back. They're about 1 cm in size, circular, and blanchable. He told me that he's had this in the past. The nurse practitioner looked at it and called that shingles. They're not painful, but itchy. Home Medications Scheduled Aspirin (Aspirin EC) 81 Mg Tablet.dr, 81 MG PO DAILY, (Reported) Atorvastatin Calcium (Atorvastatin Calcium) 80 Mg Tab, 80 MG PO DAILY, (Reported) Empagliflozin (Jardiance) 10 Mg Tablet, 10 MG PO DAILY, (Reported) Furosemide (Furosemide) 40 Mg Tablet, 40 MG PO DAILY, (Reported) Gabapentin (Gabapentin) 300 Mg Capsule, 300 MG PO QID, (Reported) Glipizide (Glipizide) 5 Mg Tablet, 5 MG PO DAILY, (Reported) Lisinopril (Lisinopril) 10 Mg Tablet, 10 MG PO BID, (Reported) Metformin HCl (Metformin HCl) 1,000 Mg Tablet, 1,000 MG PO BID, (Reported) Tamsulosin Hcl (Tamsulosin HCl) 0.4 Mg Capsule, 0.4 MG PO DAILY, (Reported) Scheduled PRN Ketoconazole (Ketoconazole) 120 Ml Shampoo, 1 DOSE TOP DAILY PRN for INFLAMED SKIN, (Reported) APPLY TO SCALP AND AQUINO Tramadol HCl (Tramadol HCl) 50 Mg Tablet, 50 MG PO DAILY PRN for PAIN, (Reported) Allergies Coded Allergies: ibuprofen (Verified Allergy, Severe, TROUBLE BREATHING, 04/04/19) strawberry (Verified Allergy, Severe, THROAT SWELLING, 04/04/19) Past Medical History Medical History 1. Peripheral vascular disease. 2. Type 2 diabetes mellitus. 3. History of tobacco use with a 30 pack-year smoking history. 4. Hyperlipidemia. 5. Insomnia. 6. History of stroke times three with the first one at age 47. 7. Post-traumatic stress disorder Surgical History 1. Tonsillectomy and adenoidectomy as a young child. 2. History of right axilla femoral-femoral bypass and left femoral-femoral bypass. 3. Right AKA Family History Father: He does not know his father's past medical history Mother: History of diabetes Social History * Smoker: former Smoker (30 pack year history) Alcohol: Denies (former drinker but quit 22 years ago) Drugs: denies A-FIB/CHADSVASC A-FIB History Current/History of A-Fib/PAF?: No Review of Systems Constitutional: Denies: Fever Eyes: Denies: Vision change ENT: Reports: Other Symptoms (oral mucosa appears dry); Denies: Sore Throat Skin: Reports: Rash (back) Pulmonary: Reports: Dyspnea (when he is dry heaving); Denies: Cough Cardiovascular: Denies: Chest Pain, Lt Headedness Gastrointestinal: Reports: Nausea (occasional), Diarrhea (2 episodes of diarrhea yesterday, no BMs today); Denies: Abdominal Pain Genitourinary: Denies: Dysuria Hematologic: Reports: Bruising Endocrine: Denies: Polydipsia, Polyphagia, Polyuria Neurological: Reports: Other Symptoms (weakness and left leg) Physical Examination General Exam: Positive: Cooperative, No Acute Distress Eye Exam: Positive: EOMI; Negative: Sclera icteric ENT Exam: Positive: Other ENT (oral mucosa dry) Neck Exam: Positive: Supple Chest Exam: Positive: Clear to auscultation; Negative: Rales, Rhonchi, Wheezing Heart Exam: Positive: Rate Normal, Regular Rhythm Abdomen Exam: Positive: Normal bowel sounds, Soft; Negative: Tenderness Extremity Exam: Positive: Other (right BKA. Left foot is not cold but appears have poor hygiene) Neuro Exam: Positive: Cranial Nerves 3-12 NL Psych Exam: Negative: Memory Intact Vital Signs Vital Signs Date Time Temp Pulse Resp B/P (MAP) Pulse Ox O2 Delivery O2 Flow Rate FiO2 05/02/20 17:14 97.9 92 20 136/61 (86) 97 Room Air Laboratory Data Labs 24H Laboratory Tests 2 05/02/20 09:48: Immature Granulocyte % (Auto) 1.4, Neutrophils (%) (Auto) 84.7H, Lymphocytes (%) (Auto) 3.3L, Monocytes (%) (Auto) 10.4H, Eosinophils (%) (Auto) 0.0, Basophils (%) (Auto) 0.2, Neutrophils # (Auto) 25.3H, Lymphocytes # (Auto) 1.0L, Monocytes # (Auto) 3.1H, Eosinophils # (Auto) 0.0, Basophils # (Auto) 0.1, Nucleated Red Blood Cells % (auto) 0.0, Erythrocyte Sedimentation Rate 35H, Anion Gap 10, Glomerular Filtration Rate 46.1L, Calcium Level 9.8, C-Reactive Protein, Quantitative 11.50H 05/02/20 13:32: Urine Color YELLOW, Urine Appearance CLEAR, Urine pH 6.0, Urine Specific [place] 1.025, Urine Protein NEGATIVE, Urine Glucose (UA) 3+H, Urine Ketones TRACEH, Urine Blood NEGATIVE, Urine Nitrite NEGATIVE, Urine Bilirubin NEGATIVE, Urine Urobilinogen 0.2, Urine Leukocyte Esterase NEGATIVE, Urine WBC (Auto) 0, Urine RBC (Auto) 1, Urine Hyaline Casts (Auto) 0, Urine Bacteria (Auto) NEGATIVE, Urine Squamous Epithelial Cells 0, Urine Sperm (Auto) 05/02/20 17:19: Bedside Glucose (Misc Panel) 324H CBC/BMP Laboratory Tests 05/02/20 09:48 Microbiology Microbiology 05/02/20 Blood Culture, Received Pending 05/02/20 Blood Culture, Received Pending Assessment/Plan Mr. Khoury is a 69-year-old male with diabetes mellitus type 2, tobacco use, peripheral vascular disease status post right AKA who is here for left leg weakness. Due to his acute renal injury, ultrasound of the kidney was obtained which did demonstrate inflammation of the bladder as well as distention of the gallbladder. We'll empirically treat for both with Zosyn. This may be the cause of his leukocytosis. Otherwise pending blood cultures 2. In addition he appeared dry. He also be getting IV fluids. We'll order physical therapy to work with his left leg weakness. Plan / VTE VTE Prophylaxis Ordered?: Yes Plan Plan 1. Left leg weakness May be secondary to infectious process. He does have leukocytosis of 29.9 Physical therapy 2. Leukocytosis He has leukocytosis of 29.9, predominantly neutrophils. We'll get a blood smear Ultrasound of the kidneys suggestive of bladder inflammation and cholecystitis Empirically treated with Zosyn Pending blood cultures 2 3. Acute renal injury Baseline creatinine is 0.8 Creatinine on admission was 1.6 IV fluids, holding nephrotoxic agents, supportive care 4. Hyperkalemia Secondary to acute renal injury We'll give Veltassa Repeat BMP later tonight. Continue to follow BMPs 5. Peripheral vascular disease Left leg not cold Continue aspirin, atorvastatin 6. Diabetes mellitus While inpatient he'll be on signs: Insulin 7. Shingles On his back Denies pain, but reports itchiness We'll try Benadryl cream 8. DVT prophylaxis Heparin HERNAN POWELL DO May 02, 2020 19:04
[2020-05-02] MEDS: PIPERACILLIN/TAZOBACTAM SOD 4.5 GM in D5W MINI-BAG PLUS 50 ML IV SCH (20:24)
[2020-05-02] MEDS: HEPARIN SOD (PORCINE) 5000UNITS/ML 1ML VIAL/SYRINGE SC SCH (20:25)
[2020-05-02] MEDS ORDERED: HumaLOG INSULIN (NovoLOG) PER UNIT SC SCH (21:00)
[2020-05-02] MEDS: ACETAMINOPHEN TAB 650MG DOSE (2X325MG) PO PRN (22:42)
[2020-05-02 23:07] LABS: BASO % 0.2 % (0.0-1.0); HEMATOCRIT 35.8 % (42.0-52.0); HEMOGLOBIN 11.7 g/dl (13.5-17.5); LYMPH # 0.2 10^3/uL (1.5-5.0); LYMPH % 2.3 % (24.0-44.0); MEAN CORPUSCULAR HEMOGLOBIN 27.4 pg (27.0-33.0); MEAN CORPUSCULAR HGB CONC 32.7 g/dl (32.0-36.5); MEAN CORPUSCULAR VOLUME 83.8 fl (80.0-96.0); MONO # 0.1 10^3/uL (0.0-0.8); MONO % 0.6 % (0.0-5.0); NEUTROPHILS # 9.1 10^3/uL (1.5-8.5); NEUTROPHILS % 96.5 % (36.0-66.0); PLATELET COUNT, AUTOMATED 192 10^3/uL (150-450); RED BLOOD COUNT 4.27 10^6/uL (4.30-6.10); WHITE BLOOD COUNT 9.5 10^3/uL (4.0-10.0)
[2020-05-02 23:37] LABS: ALBUMIN 2.7 GM/DL (3.2-5.2); ALT/SGPT 23 U/L (12-78); BILIRUBIN,TOTAL 1.2 MG/DL (0.2-1.0); BLOOD UREA NITROGEN 35 MG/DL (7-18); CALCIUM LEVEL 8.4 MG/DL (8.8-10.2); CARBON DIOXIDE LEVEL 24 MEQ/L (21-32); CHLORIDE LEVEL 100 MEQ/L (98-107); CK-MB VALUE MASS < 1.0 NG/ML (<3.6); CPK CREATINE PHOSPHOKINASE 98 U/L (39-308); CREATININE FOR GFR 1.63 MG/DL (0.70-1.30); GLOMERULAR FILTRATION RATE 45.1 (>49); GLUCOSE, FASTING 233 MG/DL (70-100); MB/CK RELATIVE INDEX 1.02 (< OR =4); POTASSIUM SERUM 4.2 MEQ/L (3.5-5.1); SODIUM LEVEL 134 MEQ/L (136-145)
[2020-05-02 23:38] LABS: MAGNESIUM LEVEL 1.9 MG/DL (1.8-2.4); TROPONIN I < 0.02 NG/ML (< 0.10)
[2020-05-03] VITALS (40 sets, daily range): BP systolic 70–131; BP diastolic 41–69
[2020-05-03] MEDS ORDERED: NOREPINEPHRINE 4 MG/4 ML AMP As Ordered ONE (01:08)
[2020-05-03] MEDS ORDERED: LIDOCAINE 1% MDV 20ML VIAL As Ordered ONE (01:24)
[2020-05-03] MEDS ORDERED: NOREPINEPHRINE BITARTRATE 8 MG in D5W 492 ML IV SCH (01:45)
--- NOTE | 2020-05-03 02:01 | REPVR ---
PROCEDURE INFORMATION: Exam: XR Chest, 1 View Exam date and time: 05/03/20 (1:38am) Age: 69 years old Clinical indication: Central line placement TECHNIQUE: Imaging protocol: Portable CXR Views: 1 view COMPARISON: Portable CXR of 05/02/20 (10:52am) FINDINGS: Comparison is made with a portable CXR done approx. 15 hours ago. Stable heart size. Mild elevation of the right hemidiaphragm. Prominent lung markings. Mild linear stranding again seen at each lung base. A right-sided jugular venous catheter has been placed, with its tip at or just below the atrio-caval junction level. No pneumothorax. IMPRESSION: Mildly prominent lung markings. Mild linear stranding remains at each lung base (perhaps atelectasis). A right-sided jugular venous catheter has been placed, with its tip at or just below the atrio-caval junction level. No pneumothorax. Electronically signed by: Gisselle Rhodes On 05/03/2020 02:00:43 AM
[2020-05-03] MEDS: PIPERACILLIN/TAZOBACTAM SOD 4.5 GM in D5W MINI-BAG PLUS 50 ML IV SCH ×4 (02:20→18:16)
[2020-05-03 03:26] LABS: CREATININE,RANDOM URINE 86.2 MG/DL
[2020-05-03 03:44] LABS: HEMATOCRIT 33.1 % (42.0-52.0); HEMOGLOBIN 10.7 g/dl (13.5-17.5); MEAN CORPUSCULAR HEMOGLOBIN 27.8 pg (27.0-33.0); MEAN CORPUSCULAR HGB CONC 32.3 g/dl (32.0-36.5); PLATELET COUNT, AUTOMATED 189 10^3/uL (150-450); RED BLOOD COUNT 3.85 10^6/uL (4.30-6.10); WHITE BLOOD COUNT 23.5 10^3/uL (4.0-10.0)
[2020-05-03 04:03] LABS: CALCIUM LEVEL 7.6 MG/DL (8.8-10.2); CREATININE FOR GFR 1.43 MG/DL (0.70-1.30); GLOMERULAR FILTRATION RATE 52.5 (>49)
--- NOTE | 2020-05-03 05:37 | IPNPDOC ---
Date Seen The patient was seen on 05/03/20. Progress Note Interim Change of Clinical Status Night resident made aware of patient with tachycardia rate of 120-130s, hypotension BP 82/40 manual, and fever or 102.1 per nursing staff. On evaluation the patient was mildly lethargic. STAT labs showing lactic acidosis and ROBERT. Patient was bolused 2.5L NS with improvement in his tachycardia and lethargy however he remained consistently hypotensive. Decision was made to transfer to ICU for central line placement. Patient was subsequently placed on levophed. Most pressing issue currently is sepsis with septic shock requiring pressor support likely secondary to intra-abdominal infection. Patient is currently receiving Zosyn VS, I&O, 24H, Fishbone Vital Signs/I&O Vital Signs Date Time Temp Pulse Resp B/P (MAP) Pulse Ox O2 Delivery O2 Flow Rate FiO2 05/03/20 01:00 100 77/45 (56) 96 05/03/20 00:52 100.9 05/03/20 00:00 2.0 05/02/20 22:20 36 Room Air I&O- Last 24 Hours up to 6 AM 05/03/20 06:00 Intake Total 240 ml Output Total 700 ml Balance -460 ml Laboratory Data 24H LABS Laboratory Tests 2 05/02/20 09:48: Immature Granulocyte % (Auto) 1.4, Neutrophils (%) (Auto) 84.7H, Lymphocytes (%) (Auto) 3.3L, Monocytes (%) (Auto) 10.4H, Eosinophils (%) (Auto) 0.0, Basophils (%) (Auto) 0.2, Neutrophils # (Auto) 25.3H, Lymphocytes # (Auto) 1.0L, Monocytes # (Auto) 3.1H, Eosinophils # (Auto) 0.0, Basophils # (Auto) 0.1, Nucleated Red Blood Cells % (auto) 0.0, Erythrocyte Sedimentation Rate 35H, Anion Gap 10, Glomerular Filtration Rate 46.1L, Calcium Level 9.8, C-Reactive Protein, Quantitative 11.50H 05/02/20 13:32: Urine Color YELLOW, Urine Appearance CLEAR, Urine pH 6.0, Urine Specific [place] 1.025, Urine Protein NEGATIVE, Urine Glucose (UA) 3+H, Urine Ketones TRACEH, Urine Blood NEGATIVE, Urine Nitrite NEGATIVE, Urine Bilirubin NEGATIVE, Urine Urobilinogen 0.2, Urine Leukocyte Esterase NEGATIVE, Urine WBC (Auto) 0, Urine RBC (Auto) 1, Urine Hyaline Casts (Auto) 0, Urine Bacteria (Auto) NEGATIVE, Urine Squamous Epithelial Cells 0, Urine Sperm (Auto) 05/02/20 17:19: Bedside Glucose (Misc Panel) 324H 05/02/20 19:43: Bedside Glucose (Misc Panel) 260H 05/02/20 22:25: Bedside Glucose (Misc Panel) 282H 05/02/20 22:49: Immature Granulocyte % (Auto) 0.4, Neutrophils (%) (Auto) 96.5H, Lymphocytes (%) (Auto) 2.3L, Monocytes (%) (Auto) 0.6, Eosinophils (%) (Auto) 0.0, Basophils (%) (Auto) 0.2, Neutrophils # (Auto) 9.1H, Lymphocytes # (Auto) 0.2L, Monocytes # (Auto) 0.1, Eosinophils # (Auto) 0.0, Basophils # (Auto) 0.0, Nucleated Red Blood Cells % (auto) 0.0, Differential Slide Review Report, Peripheral Blood Smear Path Consult PERIPHERAL SMEAR, Anion Gap 10, Glomerular Filtration Rate 45.1L, Lactic Acid Level 4.1*H, Calcium Level 8.4L, Magnesium Level 1.9, Total Bilirubin 1.2H, Aspartate Amino Transf (AST/SGOT) 14, Alanine Aminotransferase (ALT/SGPT) 23, Alkaline Phosphatase 63, Total Creatine Kinase 98, Creatine Kinase MB < 1.0, Creatine Kinase MB Relative Index 1.02, Troponin I < 0.02, Total Protein 6.0L, Albumin 2.7L, Albumin/Globulin Ratio 0.8 05/03/20 02:25: Nucleated Red Blood Cells % (auto) 0.0, Anion Gap 9, Glomerular Filtration Rate 52.5, Calcium Level 7.6L, Urine Color YELLOW, Urine Appearance CLEAR, Urine pH 5.0, Urine Specific [place] 1.026, Urine Protein NEGATIVE, Urine Glucose (UA) 3+H, Urine Ketones TRACEH, Urine Blood 1+H, Urine Nitrite NEGATIVE, Urine Bilirubin NEGATIVE, Urine Urobilinogen 0.2, Urine Leukocyte Esterase NEGATIVE, Urine WBC (Auto) 0, Urine RBC (Auto) 0, Urine Hyaline Casts (Auto) 0, Urine Bacteria (Auto) NEGATIVE, Urine Squamous Epithelial Cells 0, Urine Sperm (Auto) , Urine Random Creatinine 86.2, Urine Random Sodium 13, Urine Random Chloride 16, Urine Random Urea Nitrogen 693 05/03/20 03:26: Lactic Acid Followup at 4 Hours 2.0 CBC/BMP Laboratory Tests 05/02/20 09:48 05/02/20 22:49 05/03/20 02:25 Microbiology Microbiology 05/02/20 Blood Culture, Received Pending 05/02/20 Blood Culture, Received Pending LAURIE CASTELLANOS DO May 03, 2020 05:37
[2020-05-03] MEDS: ACETAMINOPHEN TAB 650MG DOSE (2X325MG) PO PRN ×2 (06:03→20:39)
[2020-05-03] MEDS ORDERED: LIDOCAINE 1% MDV 20ML VIAL IM ONE (06:15)
[2020-05-03 07:43] LABS: ALBUMIN 2.6 GM/DL (3.2-5.2); BILIRUBIN,DIRECT 0.4 MG/DL (0.0-0.2); BILIRUBIN,TOTAL 0.9 MG/DL (0.2-1.0); TOTAL PROTEIN 5.7 GM/DL (6.4-8.2)
[2020-05-03] MEDS ORDERED: HumaLOG INSULIN (NovoLOG) PER UNIT SC SCH ×2 (08:00→12:00)
[2020-05-03] MEDS: GABAPENTIN 300 MG CAP PO SCH ×4 (08:01→20:39)
[2020-05-03] MEDS: TAMSULOSIN 0.4 MG CAP PO SCH (08:01)
[2020-05-03] MEDS: HEPARIN SOD (PORCINE) 5000UNITS/ML 1ML VIAL/SYRINGE SC SCH ×2 (08:01→20:39)
[2020-05-03] MEDS: ASPIRIN 81 MG ENTERIC TAB PO SCH (08:01)
[2020-05-03] MEDS: ATORVASTATIN 20 MG TAB PO SCH (08:01)
[2020-05-03] MEDS: HumaLOG INSULIN (NovoLOG) PER UNIT SC SCH ×3 (08:01→20:40)
[2020-05-03] MEDS ORDERED: FLUBLOK(EGG FREE)(QUAD)INFLUENZA VACC 0.5ML SYRINGE 18YRS & OLDER IM ONE (09:00)
--- NOTE | 2020-05-03 09:43 | RO ---
DATE OF OPERATION: 05/03/2020 PROCEDURE: Central line. INDICATION: Vasopressor administration. PREPROCEDURE DIAGNOSIS: Septic shock. POSTPROCEDURE DIAGNOSIS: Septic shock. ATTENDING PHYSICIAN: Dr. Cooper CONSENT: Consent was obtained from the patient prior to the procedure. Indications, risks and benefits were explained at length. PROCEDURE SUMMARY: Central line insertion practices form was completed by an independent observer. Time out was performed. Full sterile technique was maintained throughout the procedure including surgical cap, mask, protective eyewear, full gown and sterile gloves. The patient was placed in Trendelenburg position. The right neck region was prepped using Chlorhexidine scrub and draped in sterile fashion using full drape and sterile probe cover employed. The right internal jugular vein was identified using ultrasound. Anesthesia was achieved over the vein using 1% Lidocaine. Using realtime out of plane guidance the introducer needle was inserted into the internal jugular vein under direct ultrasound visualization. Venous blood was drawn. The syringe was removed and guidewire was advanced into the introducer needle. The introducer needle was removed over the guidewire. A small incision was made at the skin surface with a scalpel and a dilator was exchanged over the guidewire. After appropriate dilation was obtained the dilator was exchanged over the wire for a triple lumen central venous catheter. The wire was removed and the catheter was sutured in place at 17 cm. A sterile Chlorhexidine impregnated dressing was placed over the catheter at the insertion site. The patient tolerated the procedure without any hemodynamic compromise. At time of procedure completion all ports aspirated and flushed properly. Postprocedure chest x-ray showed the central line in appropriate position with tip in the SVC and no pneumothorax. Estimated blood loss is less than 5 mL. MTDD
[2020-05-03] MEDS: NS 1,000 ML IV SCH ×2 (11:16→20:41)
--- NOTE | 2020-05-03 14:16 | CR ---
PULMONARY/CRITICAL CARE CONSULTATION DATE OF CONSULTATION: 05/03/2020 CHIEF COMPLAINT: Hypotension. HISTORY OF PRESENT ILLNESS: Mr. Khoury is a 69-year-old male with a past medical history of diabetes, peripheral vascular disease, CVA, nicotine dependence and hyperlipidemia who presented with a complaint of left leg weakness. Patient has a history of a right AKA secondary to his peripheral vascular disease. He will usually have to stand on his left leg in order to urinate; however, yesterday evening patient states he was unable to urinate due to weakness in his left leg. He therefore presented to the ED for further evaluation. He did also note some complaints of mild abdominal pain, but states he did not have significant pain at home. He did not notice significant fevers or chills at home either and he denied having any chest pain or shortness of breath. He does have a history of back pain chronically. He does also have a history of a rash on his back which he states he has had in the past and is pruritic, but not painful. Patient in the ED was febrile. Patient was admitted and noted to have leukocytosis. He was started on broad spectrum antibiotics and given normal saline at 80 mL and hour. Patient was then noted to be febrile overnight with a temperature up to 102.1. He was also noted to be more lethargic with altered mental status as well as hypotension and tachycardia. He was given I.V. fluid bolus of 2.5 liters normal saline and he did have some improvement in his heart rate as well as in his mentation; however, he continued to be hypotensive. Patient was also reporting chills now and shivering and some shortness of breath. He denied having any nausea or vomiting and no chest pain. He did continue to have some slight abdominal tenderness. PAST MEDICAL AND SURGICAL HISTORY: 1. Diabetes type-2. 2. Peripheral vascular disease. 3. Nicotine dependence. 4. Hyperlipidemia. 5. Insomnia. 6. History of CVA times 3. 7. Post traumatic stress disorder. 8. Tonsillectomy and adenoidectomy. 9. History of right axilla femoral bypass and left femoral bypass. 10. Right [id number] amputation. 11. Hypertension. HOME MEDICATIONS: * Aspirin. * Atorvastatin. * Jardiance. * Furosemide. * Gabapentin. * Glipizide. * Lisinopril. * Metformin. * Tamsulosin. * Ketoconazole p.r.n. * Tramadol p.r.n. ALLERGIES: * IBUPROFEN. * STAWBERRY. FAMILY HISTORY: Mother with history of diabetes. Patient does not know his fathers past medical history. SOCIAL HISTORY: Patient is a current active smoker. He smokes 2 cigarettes daily, but previously had smoked up to a pack a day for 30+ years. Patient also has former alcohol use, but quit reportedly 22 years ago. PHYSICAL EXAMINATION: Vitals: T-max 102.1, pulse 126 improved now to 106, respirations 36, blood pressure 82/48, O2 sat 94% on room air. Ins prior to fluid boluses 240 ml/out 700 mL, negative 460 mL. General: Patient is lying in bed, appears tired, but is awake and appropriate and answering questions and following commands appropriately. He appears to have shivers as well. HEENT: Normocephalic, atraumatic. There are dry mucous membranes noted. Pupils are reactive to light bilaterally. Neck: Supple, trachea is midline, there is no palpable cervical adenopathy. Cardiac: Tachycardic, regular rate and rhythm, normal S1 and S2, unable to appreciate murmurs. Pulmonary: There are mild crackles at the bases. No wheezing, rales or rhonchi noted. Abdomen: Appears mildly distended, is soft with some tenderness in the right upper quadrant to palpation. Extremities: Patient is status post right [id number] amputation. In the left lower extremity there is no significant lower extremity edema. There is some chronic skin changes related to his peripheral vascular disease as well as onychomycosis in the foot. LABORATORY DATA: WBC 9.8, hemoglobin 11.7, platelets 192. Chemistries: Sodium 134, potassium 4.2, chloride 100, bicarb 24, BUN 35, creatinine 1.63, glucose 233. AST/ALT 14/23, alkaline phosphatase 63, total bilirubin 1.2, albumin 2.7. lactic acid elevated at 4.1. IMAGING DATA: Chest x-ray showed low lung volumes with bibasilar atelectasis. Renal ultrasound: There is a distended gallbladder with evidence of sludge. There is gallstone in the gallbladder neck and wall thickening. There is bilateral renal cysts noted, no hydronephrosis. ASSESSMENT AND PLAN: Mr. Khoury is a 69-year-old male with a past medical history of peripheral vascular disease, diabetes type-2, nicotine dependence, hypertension and hyperlipidemia who presented with complaints of weakness. On admission patient was noted to have leukocytosis. He was started on broad spectrum antibiotics with Zosyn and given gentle hydration with 80 mL an hour of normal saline. Patient was also found to have ROBERT on admission as well likely prerenal in the setting of dehydration and volume depletion. Overnight he was noted to be febrile with tachycardia as well as hypotension and altered mental status. He was given I.V. fluid boluses then at 2.5 liters with some improvement in his tachycardia and his mental status; however, he continued to have episodes of hypotension and was transferred to the ICU for septic shock. Septic shock likely secondary to cholecystitis given his renal ultrasound finding: His x-ray had shown evidence of atelectasis, but no focal opacities or infiltrates to suggest pneumonia. He does have some abdominal tenderness as well in the right upper quadrant. Patient had a right IJ triple lumen placed and he will be started on Levophed to maintain MAP above 65. He had elevated lactic acidosis in the setting of is septic shock. He was given I.V. fluid repletion and we will follow up repeat lactic acid. Patient is status post 2.5 liters of normal saline fluid bolus. He is on Lasix at home although he denies a previous history of any cardiac disease. Would continue to monitor his fluid repletion and be cautious for evidence of pulmonary edema. He is on nasal cannula oxygen now also as he did have some desaturation. Can continue with gentle hydration with normal saline at 80 mL an hour and can given additional I.V. fluid boluses as needed. He does clinically appear to be dehydrated with dry mucous membranes. We will continue with Zosyn for broad spectrum antibiotics. We will follow up results of blood culture and continue to trend liver function tests. ROBERT likely prerenal: He did have hyperkalemia initially on admission which has improved. We will continue with I.V. fluid hydration and avoid nephrotoxins and renally dose medications as appropriate. We will place a Miller catheter for monitoring ins and outs. We will continue to monitor electrolytes and repeat as needed. History of diabetes: We will continue with fingerstick glucose checks and sliding scale coverage with long acting insulin if he is tolerating an oral diet. Continue rest of home medications as per primary team. DVT prophylaxis: Heparin. CODE STATUS: Full Code. Total care time spent not including any procedures approximately 1 hour and 40 minutes. NOY
--- NOTE | 2020-05-03 15:54 | REPVR ---
PROCEDURE INFORMATION: Exam: US Abdomen, Limited; Right Upper Quadrant Exam date and time: 05/03/2020 3:30 PM Age: 69 years old Clinical indication: Abnormal findings; Abnormal radiologic finding of the abdomen; Radiologic exam and body structure: CT, cholecystitis; Additional info: US kidneys suggestive of cholecytitis TECHNIQUE: Imaging protocol: US abdomen. Real time ultrasound with image documentation. Limited exam focused on the right upper quadrant. COMPARISON: RENAL US 05/02/2020 4:04 PM FINDINGS: Liver: The liver demonstrates increased echogenicity with decreased visualization of periportal fat with moderately severe sound attenuation. Gallbladder: Gallbladder luminal distention is present measuring 5.4 x 5.6 cm. A single 3.0 cm gallstone is impacted in the gallbladder neck. Moderate wall thickening. The gallbladder wall measures 6.2 mm. No gallstones. No definite pericholecystic fluid identified. Common bile duct: The extrahepatic bile ducts are dilated, measuring 9.2 mm. No ductal calculus identified. Pancreas: The pancreas neck is unremarkable. The remainder of the gland is obscured by bowel gas. Right kidney: Anterior exophytic right renal benign simple cyst measuring 3.6 cm. The right kidney measures 11.8 x 5.9 x 5.6 cm. A brief color Doppler examination of the right kidney was performed showing normal color shifts. Intraperitoneal space: Free breathing artifacts are present throughout the examination. Other findings: 2 IMPRESSION: 1. Limitations as above. 2. Cholelithiasis, with findings consistent acute cholecystitis. 3. Extrahepatic biliary ductal dilatation, no ductal calculus identified. MRCP may be helpful if indicated. 4. Right renal benign simple cyst. 5. Fatty infiltration of the liver. Electronically signed by: Marco Daniels On 05/03/2020 15:54:15 PM
--- NOTE | 2020-05-03 18:59 | CR.PDOC ---
General Date of Consultation: May 03, 2020 Consultation REASON FOR CONSULTATION: Dermatology was asked to consult on this patient to rule out herpes zoster. S: Mr. Khoury is a 69-year-old male with diabetes mellitus type 2, tobacco use, peripheral vascular disease status post AKA who presented to the [facility] ER with c/o left leg weakness. Due to his acute renal injury, ultrasound of the kidney was obtained which did demonstrate inflammation of the bladder, as well as, distention of the gallbladder. He is currently being empirically treated for both with Zosyn. Pending blood cultures x 2. +leukocytosis of 29.9. No fever, tachypnea, or tachycardia. Patient states that while in the ED he was found to have a eruption on his back. He denies any c/o of pruritus or irritation during exam today. HE is currently being treated with Benadryl cream. He denies a personal history of eczema or psoriasis. O: Erythematous eczematous scaly patches and plaques scattered over bilateral thoracic back. No vesicles noted. No pain or discomfort to palpation. A: Rash unspecified (suspect eczematous dermatitis) P: Viral culture obtained today from left back to R/O herpes zoster. Recommend Triamcinolone 0.1% cream BID. Vital Signs/I&O Vital Signs Date Time Temp Pulse Resp B/P (MAP) Pulse Ox O2 Delivery O2 Flow Rate FiO2 05/03/20 16:00 99.1 86 20 107/53 (71) 98 Nasal Cannula 05/03/20 10:00 2.0 I&O- Last 24 Hours up to 6 AM 05/03/20 06:00 Intake Total 590 ml Output Total 1550 ml Balance -960 ml Laboratory Data Labs 24H Laboratory Tests 2 05/02/20 19:43: Bedside Glucose (Misc Panel) 260H 05/02/20 22:25: Bedside Glucose (Misc Panel) 282H 05/02/20 22:49: Immature Granulocyte % (Auto) 0.4, Neutrophils (%) (Auto) 96.5H, Lymphocytes (%) (Auto) 2.3L, Monocytes (%) (Auto) 0.6, Eosinophils (%) (Auto) 0.0, Basophils (%) (Auto) 0.2, Neutrophils # (Auto) 9.1H, Lymphocytes # (Auto) 0.2L, Monocytes # (Auto) 0.1, Eosinophils # (Auto) 0.0, Basophils # (Auto) 0.0, Nucleated Red Blood Cells % (auto) 0.0, Differential Slide Review Report, Peripheral Blood Smear Path Consult PERIPHERAL SMEAR, Anion Gap 10, Glomerular Filtration Rate 45.1L, Lactic Acid Level 4.1*H, Calcium Level 8.4L, Magnesium Level 1.9, Total Bilirubin 1.2H, Aspartate Amino Transf (AST/SGOT) 14, Alanine Aminotransferase (ALT/SGPT) 23, Alkaline Phosphatase 63, Total Creatine Kinase 98, Creatine Kinase MB < 1.0, Creatine Kinase MB Relative Index 1.02, Troponin I < 0.02, Total Protein 6.0L, Albumin 2.7L, Albumin/Globulin Ratio 0.8 05/03/20 02:25: Nucleated Red Blood Cells % (auto) 0.0, Anion Gap 9, Glomerular Filtration Rate 52.5, Calcium Level 7.6L, Total Bilirubin 0.9, Aspartate Amino Transf (AST/SGOT) 17, Alanine Aminotransferase (ALT/SGPT) 28, Alkaline Phosphatase 52, Total Protein 5.7L, Albumin 2.6L, Albumin/Globulin Ratio 0.8, Urine Color YELLOW, Urine Appearance CLEAR, Urine pH 5.0, Urine Specific [place] 1.026, Urine Protein NEGATIVE, Urine Glucose (UA) 3+H, Urine Ketones TRACEH, Urine Blood 1+H, Urine Nitrite NEGATIVE, Urine Bilirubin NEGATIVE, Urine Urobilinogen 0.2, Urine Leukocyte Esterase NEGATIVE, Urine WBC (Auto) 0, Urine RBC (Auto) 0, Urine Hyaline Casts (Auto) 0, Urine Bacteria (Auto) NEGATIVE, Urine Squamous Epithelial Cells 0, Urine Sperm (Auto) , Urine Random Creatinine 86.2, Urine Random Sodium 13, Urine Random Chloride 16, Urine Random Urea Nitrogen 693, Direct Bilirubin 0.4H 05/03/20 03:26: Lactic Acid Followup at 4 Hours 2.0 05/03/20 07:32: Bedside Glucose (Misc Panel) 194H 05/03/20 13:17: Bedside Glucose (Misc Panel) 196H 05/03/20 16:26: Bedside Glucose (Misc Panel) 137H CBC/BMP Laboratory Tests 05/02/20 22:49 05/03/20 02:25 Microbiology Microbiology 05/03/20 Viral Culture, Received Pending 05/02/20 Blood Culture - Preliminary, Resulted No growth after 24 hours . All specim... 05/02/20 Blood Culture - Preliminary, Resulted No growth after 24 hours . All specim... Allergies Coded Allergies: ibuprofen (Verified Allergy, Severe, TROUBLE BREATHING, 04/04/19) strawberry (Verified Allergy, Severe, THROAT SWELLING, 04/04/19) Home Medications Scheduled Aspirin (Aspirin EC) 81 Mg Tablet.dr, 81 MG PO DAILY, (Reported) Atorvastatin Calcium (Atorvastatin Calcium) 80 Mg Tab, 80 MG PO DAILY, (Reported) Empagliflozin (Jardiance) 10 Mg Tablet, 10 MG PO DAILY, (Reported) Furosemide (Furosemide) 40 Mg Tablet, 40 MG PO DAILY, (Reported) Gabapentin (Gabapentin) 300 Mg Capsule, 300 MG PO QID, (Reported) Glipizide (Glipizide) 5 Mg Tablet, 5 MG PO DAILY, (Reported) Lisinopril (Lisinopril) 10 Mg Tablet, 10 MG PO BID, (Reported) Metformin HCl (Metformin HCl) 1,000 Mg Tablet, 1,000 MG PO BID, (Reported) Tamsulosin Hcl (Tamsulosin HCl) 0.4 Mg Capsule, 0.4 MG PO DAILY, (Reported) Scheduled PRN Ketoconazole (Ketoconazole) 120 Ml Shampoo, 1 DOSE TOP DAILY PRN for INFLAMED SKIN, (Reported) APPLY TO SCALP AND AQUINO Tramadol HCl (Tramadol HCl) 50 Mg Tablet, 50 MG PO DAILY PRN for PAIN, (Reported) Salma Garvey PA-C May 03, 2020 18:59
--- NOTE | 2020-05-03 20:44 | IPNPDOC ---
Subjective Date Seen The patient was seen on 05/03/20. Subjective Chief Complaint/HPI Mr. Khoury is a 69-year-old male with peripheral vascular disease and right BKA who comes to [facility] for left leg weakness and found to have septic shock secondary to acute cholecystitis. Overnight, he had a fever of 101.3. He was hypotensive. ICU was consulted for central line placement. Patient received fluids and was on Levophed for about 2 hours. This morning, he felt better. Denies dyspnea, chest pain, abdominal pain, or dysuria. Back was still itchy. Consulted dermatology today for evaluation of rash. Unlikely herpes zoster, but will be evaluated with viral culture. Dermatology suspecting eczematous dermatitis Constitutional: Reports: Fever Pulmonary: Denies: Dyspnea Cardiovascular: Denies: Chest Pain Gastrointestinal: Denies: Abdominal Pain Genitourinary: Denies: Dysuria Objective Physical Examination General Exam: Positive: Cooperative, No Acute Distress Eye Exam: Positive: EOMI; Negative: Sclera icteric ENT Exam: Positive: Other ENT (oral mucosa dry) Neck Exam: Positive: Supple Chest Exam: Positive: Clear to auscultation; Negative: Rales, Rhonchi, Wheezing Heart Exam: Positive: Rate Normal, Regular Rhythm Abdomen Exam: Positive: Normal bowel sounds, Soft; Negative: Tenderness Extremity Exam: Positive: Other (right BKA. Left foot is not cold but appears have poor hygiene) Neuro Exam: Positive: Cranial Nerves 3-12 NL Psych Exam: Negative: Memory Intact Assessment /Plan Assessment Mr. Khoury is a 69-year-old male with peripheral vascular disease and right BKA who comes to [facility] for left leg weakness and found to have septic shock secondary to acute cholecystitis. Patient did require 2 hours of Levophed, but has been doing well off of presser. Patient was downgraded to PCU. Continues on IV fluids and IV antibiotics. Ordered US gallbladder today which has been consistent with acute cholecystitis. Will reach out to General surgery tomorrow. Otherwise, consulted dermatology today for rash on back. Viral culture sent, but it is suspected to be eczematous dermatitis. Plan/VTE VTE Prophylaxis Ordered?: Yes Plan 1. Septic shock -Secondary to acute cholecystitis -Required Levophed for 2 hours -IV Zosyn and IV fluids 2. Acute cholecystitis -Imaging suggests acute cholecystitis -Total bilirubin within normal and direct bilirubin slightly elevated at 0.4 -Continue following labs -Empirically on antibiotics -Will reach out to general surgery tomorrow 3. Left leg weakness May be secondary to infectious process, will treat infectious process Physical therapy 4. Acute renal injury Baseline creatinine is 0.8 Creatinine on admission was 1.6 IV fluids, holding nephrotoxic agents, supportive care 5. Hyperkalemia Secondary to acute renal injury Resolved 6. Peripheral vascular disease Left leg not cold Continue aspirin, atorvastatin 7. Diabetes mellitus Sliding scale insulin 8. Rash on back Dermatology consulted, recommendations appreciated -Pending viral culture -Suspected to be eczematous dermatitis. On Triamcinolone cream BID 9. DVT prophylaxis Heparin VS, I&O, 24H, Fishbone Vital Signs/I&O Vital Signs Date Time Temp Pulse Resp B/P (MAP) Pulse Ox O2 Delivery O2 Flow Rate FiO2 05/03/20 16:00 99.1 86 20 107/53 (71) 98 Nasal Cannula 05/03/20 10:00 2.0 I&O- Last 24 Hours up to 6 AM 05/03/20 06:00 Intake Total 590 ml Output Total 1550 ml Balance -960 ml Laboratory Data 24H LABS Laboratory Tests 2 05/02/20 22:25: Bedside Glucose (Misc Panel) 282H 05/02/20 22:49: Immature Granulocyte % (Auto) 0.4, Neutrophils (%) (Auto) 96.5H, Lymphocytes (%) (Auto) 2.3L, Monocytes (%) (Auto) 0.6, Eosinophils (%) (Auto) 0.0, Basophils (%) (Auto) 0.2, Neutrophils # (Auto) 9.1H, Lymphocytes # (Auto) 0.2L, Monocytes # (Auto) 0.1, Eosinophils # (Auto) 0.0, Basophils # (Auto) 0.0, Nucleated Red Blood Cells % (auto) 0.0, Differential Slide Review Report, Peripheral Blood Smear Path Consult PERIPHERAL SMEAR, Anion Gap 10, Glomerular Filtration Rate 45.1L, Lactic Acid Level 4.1*H, Calcium Level 8.4L, Magnesium Level 1.9, Total Bilirubin 1.2H, Aspartate Amino Transf (AST/SGOT) 14, Alanine Aminotransferase (ALT/SGPT) 23, Alkaline Phosphatase 63, Total Creatine Kinase 98, Creatine Kinase MB < 1.0, Creatine Kinase MB Relative Index 1.02, Troponin I < 0.02, Total Protein 6.0L, Albumin 2.7L, Albumin/Globulin Ratio 0.8 05/03/20 02:25: Nucleated Red Blood Cells % (auto) 0.0, Anion Gap 9, Glomerular Filtration Rate 52.5, Calcium Level 7.6L, Total Bilirubin 0.9, Aspartate Amino Transf (AST/SGOT) 17, Alanine Aminotransferase (ALT/SGPT) 28, Alkaline Phosphatase 52, Total Protein 5.7L, Albumin 2.6L, Albumin/Globulin Ratio 0.8, Urine Color YELLOW, Urine Appearance CLEAR, Urine pH 5.0, Urine Specific [place] 1.026, Urine Protein NEGATIVE, Urine Glucose (UA) 3+H, Urine Ketones TRACEH, Urine Blood 1+H, Urine Nitrite NEGATIVE, Urine Bilirubin NEGATIVE, Urine Urobilinogen 0.2, Urine Leukocyte Esterase NEGATIVE, Urine WBC (Auto) 0, Urine RBC (Auto) 0, Urine Hyaline Casts (Auto) 0, Urine Bacteria (Auto) NEGATIVE, Urine Squamous Epithelial Cells 0, Urine Sperm (Auto) , Urine Random Creatinine 86.2, Urine Random Sodium 13, Urine Random Chloride 16, Urine Random Urea Nitrogen 693, Direct Bilirubin 0.4H 05/03/20 03:26: Lactic Acid Followup at 4 Hours 2.0 05/03/20 07:32: Bedside Glucose (Misc Panel) 194H 05/03/20 13:17: Bedside Glucose (Misc Panel) 196H 05/03/20 16:26: Bedside Glucose (Misc Panel) 137H CBC/BMP Laboratory Tests 05/02/20 22:49 05/03/20 02:25 Microbiology Microbiology 05/03/20 Viral Culture, Received Pending 05/02/20 Blood Culture - Preliminary, Resulted No growth after 24 hours . All specim... 05/02/20 Blood Culture - Preliminary, Resulted No growth after 24 hours . All specim... HERNAN POWELL DO May 03, 2020 20:44
[2020-05-04] VITALS: BP 117/56
[2020-05-04] MEDS: PIPERACILLIN/TAZOBACTAM SOD 4.5 GM in D5W MINI-BAG PLUS 50 ML IV SCH ×4 (00:50→17:35)
[2020-05-04 04:00] VITALS: BP 123/58
[2020-05-04 06:16] LABS: HEMATOCRIT 30.4 % (42.0-52.0); HEMOGLOBIN 9.8 g/dl (13.5-17.5); MEAN CORPUSCULAR HGB CONC 32.2 g/dl (32.0-36.5); MEAN CORPUSCULAR VOLUME 86.9 fl (80.0-96.0); PLATELET COUNT, AUTOMATED 168 10^3/uL (150-450); WHITE BLOOD COUNT 18.2 10^3/uL (4.0-10.0)
[2020-05-04] MEDS: traMADol 50 MG TAB PO PRN (06:16)
[2020-05-04 06:36] LABS: ALBUMIN 2.1 GM/DL (3.2-5.2); ALT/SGPT 35 U/L (12-78); BILIRUBIN,TOTAL 0.8 MG/DL (0.2-1.0); BLOOD UREA NITROGEN 21 MG/DL (7-18); CALCIUM LEVEL 7.5 MG/DL (8.8-10.2); CARBON DIOXIDE LEVEL 20 MEQ/L (21-32); CHLORIDE LEVEL 106 MEQ/L (98-107); CREATININE FOR GFR 1.16 MG/DL (0.70-1.30); GLOMERULAR FILTRATION RATE > 60.0 (>49); GLUCOSE, FASTING 118 MG/DL (70-100); POTASSIUM SERUM 3.4 MEQ/L (3.5-5.1); SODIUM LEVEL 138 MEQ/L (136-145); TOTAL PROTEIN 5.2 GM/DL (6.4-8.2)
[2020-05-04] MEDS: NS 1,000 ML IV SCH ×2 (06:45→11:28)
[2020-05-04 08:00] VITALS: BP 142/64
--- NOTE | 2020-05-04 08:12 | ECGEPIP ---
[facility] Test Date: 2020-05-02 Pat Name: JORDAN MCKEON Department: Room: F6291-66 Gender: Male Grades 9 Thru 12 Visiting Teacher: CORINNE : 1950 Requested By: HERNAN Kelley Order Number: [id number] Reading MD: Barron Cain Measurements Intervals [place] Rate: 123 P: 33 AK: 92 QRS: 68 QRSD: 95 T: 29 QT: 343 QTc: 492 Interpretive Statements Somatic artifact Sinus tachycardia Low voltages with rightward axis; body habitus versus pulmonary disease Nonspecific ST/T wave abnormalities Faster rate and ST/T wave changes from Earlier the same day Clinical correlation advised Electronically Signed on 05-04-2020 8:12:31 EDT by Barron Cain
[2020-05-04] MEDS: HumaLOG INSULIN (NovoLOG) PER UNIT SC SCH ×4 (08:43→21:00)
[2020-05-04] MEDS: ATORVASTATIN 20 MG TAB PO SCH (08:44)
[2020-05-04] MEDS: GABAPENTIN 300 MG CAP PO SCH ×4 (08:44→21:46)
[2020-05-04] MEDS: ASPIRIN 81 MG ENTERIC TAB PO SCH (08:44)
[2020-05-04] MEDS: HEPARIN SOD (PORCINE) 5000UNITS/ML 1ML VIAL/SYRINGE SC SCH ×2 (08:44→21:46)
[2020-05-04] MEDS: TAMSULOSIN 0.4 MG CAP PO SCH (08:45)
[2020-05-04] MEDS ORDERED: POTASSIUM CHLORIDE 10 MEQ SR TABLET PO ONE (10:15)
[2020-05-04] MEDS: VANICREAM MOISTURIZING SKIN CREAM 113GM TUBE TOP SCH ×2 (11:26→21:46)
[2020-05-04 12:00] VITALS: BP 140/63
--- NOTE | 2020-05-04 12:50 | REP ---
INDICATION: Acute cholecystitis. COMPARISON: Ultrasound 05/03/2020. TECHNIQUE: Limited coronal and axial T2 weighted sequences. Patient could not tolerate full MRCP exam. FINDINGS: Gallbladder is significantly distended with diffuse wall thickening and edema. A large gallstone is seen in the neck of the gallbladder. It measures 2.6 cm in maximum diameter. There is mild free fluid in the pericholecystic region and around the inferior aspect of the liver. There is mild dilatation of central intrahepatic bile ducts. There is dilatation of the common bile duct. The maximum diameter is approximately 12 mm distally. In the distal common bile duct I suspect that there are 2 calculi measuring 8 and 5 mm in diameter. The liver demonstrates no gross abnormality. The spleen demonstrates no gross abnormality. There is nodular thickening of the adrenal glands which appears stable compared to the prior CT of 01/12/2020. Pancreas appears unremarkable. There is no pancreatic duct dilatation or evidence of edema. There are bilateral renal cysts. The largest is in the right upper pole measuring 3.6 cm in maximum diameter. Two smaller cysts are seen in the upper and mid left kidney. There is no hydronephrosis bilaterally. No gross adenopathy is seen. IMPRESSION: Gallbladder is significantly distended with diffuse wall thickening and edema. Large gallstone in the neck of the gallbladder. Mild pericholecystic fluid. Biliary dilatation. I suspect cholecystitis. In addition there are 2 calculi in the distal common bile duct measuring 8 and 5 mm. Common bile duct itself measures 12 mm in maximum diameter. <Electronically signed by Miquel Munson > 05/04/20 [id number]
--- NOTE | 2020-05-04 18:59 | IPNPDOC ---
Subjective Date Seen The patient was seen on 05/04/20. Subjective Chief Complaint/HPI Mr. Khoury is a 69-year-old male with peripheral vascular disease and right BKA who comes to [facility] for left leg weakness and found to have septic shock secondary to acute cholecystitis. No events overnight. Denies chest pain, dyspnea, abdominal pain, or dysuria. He does have abdominal tenderness in the right upper quadrant when pressed, but denies nausea/pain when eating greasy foods. Spoke with general surgery, no surgery at this time due to inflammation. They recommended follow up in 4 to 6 weeks once inflammation resolves. Constitutional: Denies: Chills, Fever Pulmonary: Denies: Dyspnea Cardiovascular: Denies: Chest Pain Gastrointestinal: Denies: Abdominal Pain Genitourinary: Denies: Dysuria Objective Physical Examination General Exam: Positive: Cooperative, No Acute Distress Eye Exam: Positive: EOMI; Negative: Sclera icteric ENT Exam: Positive: Other ENT (oral mucosa dry) Neck Exam: Positive: Supple Chest Exam: Positive: Clear to auscultation; Negative: Rales, Rhonchi, Wheezing Heart Exam: Positive: Rate Normal, Regular Rhythm Abdomen Exam: Positive: Normal bowel sounds, Soft, Tenderness (right upper quadrant) Extremity Exam: Positive: Other (right BKA. Left foot is not cold but appears h ave poor hygiene) Neuro Exam: Positive: Cranial Nerves 3-12 NL Psych Exam: Negative: Memory Intact Assessment /Plan Assessment Mr. Khoury is a 69-year-old male with peripheral vascular disease and right BKA who comes to [facility] for left leg weakness and found to have septic shock secondary to acute cholecystitis. Patient did require 2 hours of Levophed, but has been doing well off of presser. Patient was downgraded to PCU. Continues on IV fluids and IV antibiotics. US gallbladder and MRCP consistent with cholecystitis. Reached out to general surgery. No surgery at this time due to inflammation, recommended surgery 4 to 6 weeks after inflammation resolves. Otherwise, dermatology following for rash on back. Suspected to be suspected to be eczematous dermatitis, but pending viral culture results for VZV. Plan/VTE VTE Prophylaxis Ordered?: Yes Plan 1. Septic shock -Secondary to acute cholecystitis -Required Levophed for 2 hours. Not on Levophed now -IV Zosyn and IV fluids 2. Acute cholecystitis -Imaging suggests acute cholecystitis -Total bilirubin within normal and direct bilirubin slightly elevated at 0.4 -Continue following labs -Empirically on antibiotics -Spoke with general surgery, no surgery at this time due to inflammation. Plan for surgery 4 to 6 weeks after inflammation resolves. 3. Left leg weakness May be secondary to infectious process, will treat infectious process Physical therapy 4. Acute renal injury Baseline creatinine is 0.8 Creatinine on admission was 1.6 IV fluids, holding nephrotoxic agents, supportive care -Close to baseline 5. Hyperkalemia Secondary to acute renal injury Resolved 6. Peripheral vascular disease Left leg not cold Continue aspirin, atorvastatin 7. Diabetes mellitus Sliding scale insulin 8. Rash on back Dermatology consulted, recommendations appreciated -Pending viral culture -Suspected to be eczematous dermatitis. On Triamcinolone cream BID 9. DVT prophylaxis Heparin VS, I&O, 24H, Fishbone Vital Signs/I&O Vital Signs Date Time Temp Pulse Resp B/P (MAP) Pulse Ox O2 Delivery O2 Flow Rate FiO2 05/04/20 12:00 98.3 71 17 140/63 (88) 90 Nasal Cannula 2.0 I&O- Last 24 Hours up to 6 AM 05/04/20 06:00 Intake Total 1635 ml Output Total 1050 ml Balance 585 ml Laboratory Data 24H LABS Laboratory Tests 2 05/03/20 20:37: Bedside Glucose (Misc Panel) 159H 05/04/20 05:05: Nucleated Red Blood Cells % (auto) 0.0, Anion Gap 12, Glomerular Filtration Rate > 60.0, Calcium Level 7.5L, Total Bilirubin 0.8, Aspartate Amino Transf (AST/SGOT) 28, Alanine Aminotransferase (ALT/SGPT) 35, Alkaline Phosphatase 46, Total Protein 5.2L, Albumin 2.1L, Albumin/Globulin Ratio 0.7 05/04/20 11:48: Bedside Glucose (Misc Panel) 159H 05/04/20 17:15: Bedside Glucose (Misc Panel) 184H CBC/BMP Laboratory Tests 05/04/20 05:05 Microbiology Microbiology 05/03/20 Viral Culture, Received Pending 05/02/20 Blood Culture - Preliminary, Resulted No Growth after 48 hours. All Specime... 05/02/20 Blood Culture - Preliminary, Resulted No Growth after 48 hours. All Specime... HERNAN POWELL. DO May 04, 2020 18:59
[2020-05-04 20:00] VITALS: BP 152/66
[2020-05-04] MEDS ORDERED: SODIUM CHLORIDE 0.9% INJ 10 ML SYR IV PRN (23:30)
[2020-05-05] VITALS: BP 131/77
[2020-05-05] MEDS: PIPERACILLIN/TAZOBACTAM SOD 4.5 GM in D5W MINI-BAG PLUS 50 ML IV SCH ×4 (00:13→18:50)
[2020-05-05] MEDS: NS 1,000 ML IV SCH ×2 (02:30→15:12)
[2020-05-05 04:00] VITALS: BP 140/64
[2020-05-05] MEDS: SODIUM CHLORIDE 0.9% INJ 10 ML SYR IV SCH ×3 (06:46→21:33)
[2020-05-05 07:02] LABS: HEMATOCRIT 28.9 % (42.0-52.0); HEMOGLOBIN 9.2 g/dl (13.5-17.5); MEAN CORPUSCULAR HEMOGLOBIN 27.8 pg (27.0-33.0); MEAN CORPUSCULAR HGB CONC 31.8 g/dl (32.0-36.5); MEAN CORPUSCULAR VOLUME 87.3 fl (80.0-96.0); PLATELET COUNT, AUTOMATED 183 10^3/uL (150-450); RED BLOOD COUNT 3.31 10^6/uL (4.30-6.10); WHITE BLOOD COUNT 12.6 10^3/uL (4.0-10.0)
[2020-05-05] MEDS: HumaLOG INSULIN (NovoLOG) PER UNIT SC SCH ×4 (07:30→21:00)
[2020-05-05 07:38] LABS: ALBUMIN 1.8 GM/DL (3.2-5.2); ALT/SGPT 38 U/L (12-78); BILIRUBIN,TOTAL 0.6 MG/DL (0.2-1.0); BLOOD UREA NITROGEN 16 MG/DL (7-18); CALCIUM LEVEL 7.6 MG/DL (8.8-10.2); CARBON DIOXIDE LEVEL 20 MEQ/L (21-32); CHLORIDE LEVEL 109 MEQ/L (98-107); CREATININE FOR GFR 1.09 MG/DL (0.70-1.30); GLOMERULAR FILTRATION RATE > 60.0 (>49); GLUCOSE, FASTING 143 MG/DL (70-100); POTASSIUM SERUM 3.5 MEQ/L (3.5-5.1); SODIUM LEVEL 138 MEQ/L (136-145); TOTAL PROTEIN 5.8 GM/DL (6.4-8.2)
[2020-05-05 08:00] VITALS: BP 130/62
[2020-05-05] MEDS: VANICREAM MOISTURIZING SKIN CREAM 113GM TUBE TOP SCH ×2 (10:08→21:32)
[2020-05-05] MEDS: ASPIRIN 81 MG ENTERIC TAB PO SCH (10:08)
[2020-05-05] MEDS: ATORVASTATIN 20 MG TAB PO SCH (10:08)
[2020-05-05] MEDS: GABAPENTIN 300 MG CAP PO SCH ×4 (10:09→21:31)
[2020-05-05] MEDS: HEPARIN SOD (PORCINE) 5000UNITS/ML 1ML VIAL/SYRINGE SC SCH ×2 (10:09→21:31)
[2020-05-05] MEDS: TAMSULOSIN 0.4 MG CAP PO SCH (10:12)
[2020-05-05 12:00] VITALS: BP 146/65
[2020-05-05 16:00] VITALS: BP 138/60
--- NOTE | 2020-05-05 19:14 | IPNPDOC ---
Subjective Date Seen The patient was seen on 05/05/20. Subjective Chief Complaint/HPI Mr. Khoury is a 69-year-old male with peripheral vascular disease and right BKA who comes to [facility] for left leg weakness and found to have septic shock secondary to acute cholecystitis. No events overnight. Reports fatigue. Denies chest pain, dyspnea, or dysuria. Still has some abdominal tenderness Constitutional: Denies: Chills, Fever Pulmonary: Denies: Dyspnea Cardiovascular: Denies: Chest Pain Gastrointestinal: Reports: Other Symptoms (abdominal tenderness) Genitourinary: Denies: Dysuria Objective Physical Examination General Exam: Positive: Cooperative, No Acute Distress Eye Exam: Positive: EOMI; Negative: Sclera icteric ENT Exam: Positive: Other ENT (oral mucosa dry) Neck Exam: Positive: Supple Chest Exam: Positive: Clear to auscultation; Negative: Rales, Rhonchi, Wheezing Heart Exam: Positive: Rate Normal, Regular Rhythm Abdomen Exam: Positive: Normal bowel sounds, Soft, Tenderness (right upper quadrant) Extremity Exam: Positive: Other (right BKA. Left foot is not cold but appears have poor hygiene) Neuro Exam: Positive: Cranial Nerves 3-12 NL Psych Exam: Negative: Memory Intact Assessment /Plan Assessment Mr. Khoury is a 69-year-old male with peripheral vascular disease and right BKA who comes to [facility] for left leg weakness and found to have septic shock secondary to acute cholecystitis. Patient did require 2 hours of Levophed, but has been doing well off of presser. Patient was downgraded to PCU. Continues on IV fluids and IV antibiotics. US gallbladder and MRCP consistent with cholecystitis. Reached out to general surgery. No surgery at this time due to inflammation, recommended surgery 4 to 6 weeks after inflammation resolves. Otherwise, dermatology following for rash on back. Suspected to be suspected to be eczematous dermatitis, but pending viral culture results for VZV. Plan/VTE VTE Prophylaxis Ordered?: Yes Plan 1. Septic shock -Secondary to acute cholecystitis -Required Levophed for 2 hours. Not on Levophed now -IV Zosyn and IV fluids 2. Acute cholecystitis -Imaging suggests acute cholecystitis -Total bilirubin within normal and direct bilirubin slightly elevated at 0.4 -Continue following labs -Empirically on antibiotics -Spoke with general surgery, no surgery at this time due to inflammation. Plan for surgery 4 to 6 weeks after inflammation resolves. 3. Left leg weakness May be secondary to infectious process, will treat infectious process Physical therapy 4. Acute renal injury Baseline creatinine is 0.8 Creatinine on admission was 1.6 IV fluids, holding nephrotoxic agents, supportive care -Close to baseline 5. Hyperkalemia Secondary to acute renal injury Resolved 6. Peripheral vascular disease Left leg not cold Continue aspirin, atorvastatin 7. Diabetes mellitus Sliding scale insulin 8. Rash on back Dermatology consulted, recommendations appreciated -Pending viral culture -Suspected to be eczematous dermatitis. On Triamcinolone cream BID 9. DVT prophylaxis Heparin Dispo: Patient is still weak on his legs. May need rehab. VS, I&O, 24H, Parthbonshruthi Vital Signs/I&O Vital Signs Date Time Temp Pulse Resp B/P (MAP) Pulse Ox O2 Delivery O2 Flow Rate FiO2 05/05/20 16:00 98.5 70 18 138/60 (86) 94 Room Air 05/04/20 12:00 2.0 I&O- Last 24 Hours up to 6 AM 05/05/20 06:00 Intake Total 2890 ml Output Total 1800 ml Balance 1090 ml Laboratory Data 24H LABS Laboratory Tests 2 05/04/20 21:37: Bedside Glucose (Misc Panel) 209H 05/05/20 06:47: Nucleated Red Blood Cells % (auto) 0.0, Anion Gap 9, Glomerular Filtration Rate > 60.0, Calcium Level 7.6L, Total Bilirubin 0.6, Aspartate Amino Transf (AST/SGOT) 34, Alanine Aminotransferase (ALT/SGPT) 38, Alkaline Phosphatase 48, Total Protein 5.8L, Albumin 1.8L, Albumin/Globulin Ratio 0.5 05/05/20 12:04: Bedside Glucose (Misc Panel) 165H 05/05/20 17:47: Bedside Glucose (Misc Panel) 168H CBC/BMP Laboratory Tests 05/05/20 06:47 Microbiology Microbiology 05/03/20 Viral Culture, Received Pending 05/02/20 Blood Culture - Preliminary, Resulted No Growth after 72 hours. All specime... 05/02/20 Blood Culture - Preliminary, Resulted No Growth after 72 hours. All specime... HERNAN POWELL DO May 05, 2020 19:14
[2020-05-05] MEDS ORDERED: MIRALAX *UNIT DOSE* 17GM PACKET PO PRN (19:15)
[2020-05-05 20:00] VITALS: BP 134/63
[2020-05-05] MEDS: DOCUSATE SODIUM 100 MG CAP PO SCH (21:00)
[2020-05-06] VITALS: BP 140/64
[2020-05-06] MEDS: NS 1,000 ML IV SCH ×2 (01:35→16:07)
[2020-05-06] MEDS: PIPERACILLIN/TAZOBACTAM SOD 4.5 GM in D5W MINI-BAG PLUS 50 ML IV SCH ×4 (01:35→18:39)
[2020-05-06 04:00] VITALS: BP 157/69
[2020-05-06] MEDS: SODIUM CHLORIDE 0.9% INJ 10 ML SYR IV SCH ×3 (04:27→21:49)
[2020-05-06 04:56] LABS: HEMATOCRIT 27.7 % (42.0-52.0); HEMOGLOBIN 9.2 g/dl (13.5-17.5); MEAN CORPUSCULAR HEMOGLOBIN 28.4 pg (27.0-33.0); MEAN CORPUSCULAR HGB CONC 33.2 g/dl (32.0-36.5); MEAN CORPUSCULAR VOLUME 85.5 fl (80.0-96.0); PLATELET COUNT, AUTOMATED 181 10^3/uL (150-450); RED BLOOD COUNT 3.24 10^6/uL (4.30-6.10); WHITE BLOOD COUNT 11.3 10^3/uL (4.0-10.0)
[2020-05-06 06:06] LABS: ALBUMIN 1.7 GM/DL (3.2-5.2); ALT/SGPT 53 U/L (12-78); BILIRUBIN,TOTAL 0.5 MG/DL (0.2-1.0); BLOOD UREA NITROGEN 11 MG/DL (7-18); CALCIUM LEVEL 7.2 MG/DL (8.8-10.2); CARBON DIOXIDE LEVEL 21 MEQ/L (21-32); CHLORIDE LEVEL 109 MEQ/L (98-107); CREATININE FOR GFR 0.97 MG/DL (0.70-1.30); GLOMERULAR FILTRATION RATE > 60.0 (>49); GLUCOSE, FASTING 163 MG/DL (70-100); POTASSIUM SERUM 3.2 MEQ/L (3.5-5.1); SODIUM LEVEL 136 MEQ/L (136-145); TOTAL PROTEIN 5.7 GM/DL (6.4-8.2)
--- NOTE | 2020-05-06 08:54 | REP ---
INDICATION: Gallbladder visibly palpable COMPARISON: MRI dated 05/04/2020, ultrasound dated 05/03/2020 TECHNIQUE: Axial noncontrast images from the lung bases to the pubic symphysis with coronal and sagittal reformations. This CT examination was performed using the following dose reduction techniques: Automated exposure control, adjustment of mA and/or kv according to the patient's size, and use of iterative reconstruction technique. FINDINGS: The gallbladder is moderately distended and demonstrates wall thickening along with pericholecystic inflammatory changes, 2.5 cm gallstone at the neck of the gallbladder, common bile duct dilatation and obstructing distal CBD stone measuring roughly 9 mm. Liver, spleen, pancreas, and bilateral adrenal glands are normal for noncontrast evaluation. Kidneys demonstrate mild symmetric chronic perinephric stranding and bilateral hypodensities likely representing cysts. The enteric system is without obstruction or acute inflammatory process. Scattered sigmoid diverticula noted without acute diverticulitis. Pelvis demonstrates Miller catheter in collapsed bladder and relatively normal prostate/seminal vesicles. A small amount of mesenteric stranding and ascites is consistent with the above mentioned acute cholecystitis and obstructing choledocholithiasis. No free air. No significant adenopathy. Atherosclerotic changes to the aorta and vasculature without aneurysm. Incidental note is made of right axillary-bi femoral vascular graft. Musculoskeletal structures demonstrate age-related degenerative changes. Lung bases demonstrate mild bibasilar atelectasis and small pleural effusions along with findings to suggest pulmonary vascular congestion/mild CHF. IMPRESSION: 1. Acute cholecystitis as described above secondary to 9 mm obstructing choledocholith in the distal CBD. 2. Chronic nonacute findings as described above. 3. Lung bases demonstrate small pleural effusions and bibasilar atelectasis along with findings to suggest pulmonary vascular congestion. <Electronically signed by Stephen Pierce > 05/06/20 [id number]
[2020-05-06] MEDS: DOCUSATE SODIUM 100 MG CAP PO SCH ×2 (09:00→21:41)
[2020-05-06] MEDS ORDERED: POTASSIUM CHLORIDE 10 MEQ SR TABLET PO ONE (09:00)
[2020-05-06] MEDS: HumaLOG INSULIN (NovoLOG) PER UNIT SC SCH ×4 (09:39→21:00)
[2020-05-06] MEDS: ATORVASTATIN 20 MG TAB PO SCH (09:40)
[2020-05-06] MEDS: HEPARIN SOD (PORCINE) 5000UNITS/ML 1ML VIAL/SYRINGE SC SCH ×2 (09:40→21:00)
[2020-05-06] MEDS: TAMSULOSIN 0.4 MG CAP PO SCH (09:41)
[2020-05-06] MEDS: GABAPENTIN 300 MG CAP PO SCH ×4 (09:41→21:41)
[2020-05-06] MEDS: ASPIRIN 81 MG ENTERIC TAB PO SCH (09:41)
[2020-05-06] MEDS: VANICREAM MOISTURIZING SKIN CREAM 113GM TUBE TOP SCH ×2 (09:48→21:00)
[2020-05-06 12:00] VITALS: BP 149/69
[2020-05-06 16:00] VITALS: BP 139/93
--- NOTE | 2020-05-06 19:01 | IPNPDOC ---
Subjective Date Seen The patient was seen on 05/06/20. Subjective Chief Complaint/HPI Mr. Khoury is a 69-year-old male with peripheral vascular disease and right BKA who comes to [facility] for left leg weakness and found to have septic shock secondary to acute cholecystitis. Overnight, he was belligerent and very upset. Moving him around was painful. This morning, when I looked at his abdomen, his gallbladder appeared palpable. Repeat CT demonstrates acute choledocholithiasis. Spoke with General Surgery. Patient will need to be transferred as we do not have GI/ERCP capabilities at this time. Called [facility] and on their wait list. No ERCP capability at [place]. [facility] does not have bed avaiability. On wait list with [facility]. Otherwise, reports fatigue and abdominal pain and tenderness. Constitutional: Denies: Fever Cardiovascular: Denies: Chest Pain Gastrointestinal: Reports: Abdominal Pain, Other Symptoms (tenderness) Genitourinary: Denies: Dysuria Objective Physical Examination General Exam: Positive: Cooperative, No Acute Distress Eye Exam: Positive: EOMI; Negative: Sclera icteric ENT Exam: Positive: Other ENT (oral mucosa dry) Neck Exam: Positive: Supple Chest Exam: Positive: Clear to auscultation; Negative: Rales, Rhonchi, Wheezing Heart Exam: Positive: Rate Normal, Regular Rhythm Abdomen Exam: Positive: Normal bowel sounds, Tenderness (right upper quadrant); Negative: Soft Extremity Exam: Positive: Other (right BKA. Left foot is not cold but appears have poor hygiene) Neuro Exam: Positive: Cranial Nerves 3-12 NL Psych Exam: Negative: Memory Intact Assessment /Plan Assessment Mr. Khoury is a 69-year-old male with peripheral vascular disease and right BKA who comes to [facility] for left leg weakness and found to have septic shock secondary to acute cholecystitis. Patient did require 2 hours of Levophed on 05/03/2020, but has been doing well off of presser. Patient was down graded to PCU. Continues on IV fluids and IV antibiotics. US gallbladder and MRCP consistent with cholecystitis. Reached out to general surgery. No surgery at this time due to inflammation, recommended surgery 4 to 6 weeks after inflammation resolves. On 05/06/2020, his gallbladder is visibly palpable, repeat CT demonstrates 9mm stone in CBD causing choledocholithiasis. Called several places. On waiting list at [facility]. No ERCP capabilities at [place]. No bed availability at [facility]. Otherwise, dermatology following for rash on back. Suspected to be suspected to be eczematous dermatitis, but pending viral culture results for VZV. Plan/VTE VTE Prophylaxis Ordered?: Yes Plan 1. Septic shock -Secondary to acute cholecystitis -Required Levophed for 2 hours on 05/03/2020. Not on Levophed at this time -IV Zosyn and IV fluids 2. Acute cholecystitis -Imaging suggests acute cholecystitis -Total bilirubin not elevated -Continue following labs -Empirically on antibiotics -Spoke with general surgery, no surgery at this time due to inflammation. Plan for surgery 4 to 6 weeks after inflammation resolves. 3. Acute choledocholithiasis -9mm stone in CBD -Needs transfer due to no GI/ERCP this week 4. Left leg weakness May be secondary to infectious process, will treat infectious process Physical therapy 5. Acute renal injury Baseline creatinine is 0.8 Creatinine on admission was 1.6 IV fluids, holding nephrotoxic agents, supportive care -Close to baseline 6. Hyperkalemia Secondary to acute renal injury Resolved 7. Peripheral vascular disease Left leg not cold Continue aspirin, atorvastatin 8. Diabetes mellitus Sliding scale insulin 9. Rash on back Dermatology consulted, recommendations appreciated -Pending viral culture -Suspected to be eczematous dermatitis. On Triamcinolone cream BID 10. DVT prophylaxis Heparin Dispo: No GI/ERCP this week. Will need transfer for Choledocholithiasis. Pending beds at [facility] VS, I&O, 24H, Fishbone Vital Signs/I&O Vital Signs Date Time Temp Pulse Resp B/P (MAP) Pulse Ox O2 Delivery O2 Flow Rate FiO2 05/06/20 16:00 98.2 78 20 139/93 (108) 96 Room Air 05/04/20 12:00 2.0 I&O- Last 24 Hours up to 6 AM 05/06/20 06:00 Intake Total 1510 ml Output Total 1600 ml Balance -90 ml Laboratory Data 24H LABS Laboratory Tests 2 05/05/20 21:02: Bedside Glucose (Misc Panel) 231H 05/06/20 04:25: Nucleated Red Blood Cells % (auto) 0.0, Anion Gap 6L, Glomerular Filtration Rate > 60.0, Calcium Level 7.2L, Total Bilirubin 0.5, Aspartate Amino Transf (AST/SGOT) 44H, Alanine Aminotransferase (ALT/SGPT) 53, Alkaline Phosphatase 56, Total Protein 5.7L, Albumin 1.7L, Albumin/Globulin Ratio 0.4 05/06/20 12:01: Bedside Glucose (Misc Panel) 186H 05/06/20 17:23: Bedside Glucose (Misc Panel) 178H CBC/BMP Laboratory Tests 05/06/20 04:25 Microbiology Microbiology 05/05/20 Campylobacter (PCR), Received Pending 05/05/20 Clostridium difficile Toxin A&B PCR, Received Pending 05/05/20 Plesiomonas shigelloides (PCR), Received Pending 05/05/20 Salmonella (PCR)([place]), Received Pending 05/05/20 Vibrio Species (PCR), Received Pending 05/05/20 Vibrio Cholerae (PCR), Received Pending 05/05/20 Yersinia enterocolitica (PCR), Received Pending 05/05/20 Enteroaggregative E. coli (PCR), Received Pending 05/05/20 Enteropathogenic E. coli (PCR), Received Pending 05/05/20 Enterotoxigenic E. coli (PCR), Received Pending 05/05/20 E. coli Shiga-like Toxin (PCR), Received Pending 05/05/20 Escherichia coli 0157 (PCR), Received Pending 05/05/20 Enteroinvasive E. coli/Shigella PCR, Received Pending 05/05/20 Cryptosporidium (PCR), Received Pending 05/05/20 Cyclospora cayetanensis (PCR), Received Pending 05/05/20 Entamoeba histolytica (PCR), Received Pending 05/05/20 Giardia lamblia (PCR), Received Pending 05/05/20 Adenovirus Type F 40/41 (PCR), Received Pending 05/05/20 Astrovirus (PCR), Received Pending 05/05/20 Norovirus GI/GII (PCR), Received Pending 05/05/20 Rotavirus A (PCR), Received Pending 05/05/20 Sapovirus I/II/IV/V (PCR), Received Pending 05/03/20 Viral Culture, Received Pending 05/02/20 Blood Culture - Preliminary, Resulted No Growth after 72 hours. All specime... 05/02/20 Blood Culture - Preliminary, Resulted No Growth after 72 hours. All specime... HERNAN POWELL DO May 06, 2020 19:01
[2020-05-06 20:00] VITALS: BP 154/64
[2020-05-06] MEDS: traMADol 50 MG TAB PO PRN (21:41)
[2020-05-07] VITALS (7 sets, daily range): BP systolic 138–180; BP diastolic 60–90
[2020-05-07] MEDS: PIPERACILLIN/TAZOBACTAM SOD 4.5 GM in D5W MINI-BAG PLUS 50 ML IV SCH ×4 (01:01→18:10)
[2020-05-07] MEDS: NS 1,000 ML IV SCH ×2 (01:02→12:55)
[2020-05-07] MEDS: SODIUM CHLORIDE 0.9% INJ 10 ML SYR IV SCH ×3 (06:00→21:21)
[2020-05-07] MEDS: MIRALAX *UNIT DOSE* 17GM PACKET PO SCH (06:00)
[2020-05-07 07:01] LABS: HEMATOCRIT 28.8 % (42.0-52.0); HEMOGLOBIN 9.4 g/dl (13.5-17.5); MEAN CORPUSCULAR HEMOGLOBIN 28.1 pg (27.0-33.0); MEAN CORPUSCULAR HGB CONC 32.6 g/dl (32.0-36.5); PLATELET COUNT, AUTOMATED 217 10^3/uL (150-450); RED BLOOD COUNT 3.35 10^6/uL (4.30-6.10); WHITE BLOOD COUNT 12.2 10^3/uL (4.0-10.0)
[2020-05-07 07:41] LABS: ALBUMIN 1.6 GM/DL (3.2-5.2); ALT/SGPT 55 U/L (12-78); BILIRUBIN,TOTAL 0.4 MG/DL (0.2-1.0); BLOOD UREA NITROGEN 7 MG/DL (7-18); CALCIUM LEVEL 7.7 MG/DL (8.8-10.2); CARBON DIOXIDE LEVEL 22 MEQ/L (21-32); CHLORIDE LEVEL 111 MEQ/L (98-107); CREATININE FOR GFR 0.92 MG/DL (0.70-1.30); GLOMERULAR FILTRATION RATE > 60.0 (>49); GLUCOSE, FASTING 157 MG/DL (70-100); POTASSIUM SERUM 3.5 MEQ/L (3.5-5.1); SODIUM LEVEL 138 MEQ/L (136-145); TOTAL PROTEIN 5.8 GM/DL (6.4-8.2)
[2020-05-07] MEDS: HumaLOG INSULIN (NovoLOG) PER UNIT SC SCH ×4 (08:46→21:00)
[2020-05-07] MEDS: ATORVASTATIN 20 MG TAB PO SCH (08:46)
[2020-05-07] MEDS: ASPIRIN 81 MG ENTERIC TAB PO SCH (08:46)
[2020-05-07] MEDS: TAMSULOSIN 0.4 MG CAP PO SCH (08:46)
[2020-05-07] MEDS: GABAPENTIN 300 MG CAP PO SCH ×4 (08:46→21:09)
[2020-05-07] MEDS: DOCUSATE SODIUM 100 MG CAP PO SCH ×2 (08:46→21:09)
[2020-05-07] MEDS: HEPARIN SOD (PORCINE) 5000UNITS/ML 1ML VIAL/SYRINGE SC SCH ×2 (08:47→21:09)
[2020-05-07] MEDS: VANICREAM MOISTURIZING SKIN CREAM 113GM TUBE TOP SCH ×2 (08:47→21:14)
[2020-05-07] MEDS: traMADol 50 MG TAB PO PRN (08:56)
[2020-05-07] MEDS ORDERED: MORPHINE 2 MG/ML 1ML VIAL (J2270) IV ONE (10:30)
--- NOTE | 2020-05-07 19:31 | IPNPDOC ---
Subjective Date Seen The patient was seen on 05/07/20. Subjective Chief Complaint/HPI Mr. Khoury is a 69-year-old male with peripheral vascular disease and right BKA who comes to [facility] for left leg weakness and found to have septic shock secondary to acute cholecystitis. Denies fever, chest pain, dyspnea, or dysuria. Still has abdominal tenderness. No beds available at this time at [place]. [facility] called and said he is out of network in terms of his insurance and would have to pay out of pocket. Objective Physical Examination General Exam: Positive: Cooperative, Mild Distress Eye Exam: Positive: EOMI; Negative: Sclera icteric ENT Exam: Positive: Other ENT (oral mucosa dry) Neck Exam: Positive: Supple Chest Exam: Positive: Clear to auscultation; Negative: Rales, Rhonchi, Wheezing Heart Exam: Positive: Rate Normal, Regular Rhythm Abdomen Exam: Positive: Normal bowel sounds, Tenderness (right upper quadrant); Negative: Soft Extremity Exam: Positive: Other (right BKA. Left foot is not cold but appears have poor hygiene) Neuro Exam: Positive: Cranial Nerves 3-12 NL Psych Exam: Negative: Memory Intact Assessment /Plan Assessment Mr. Khoury is a 69-year-old male with peripheral vascular disease and right BKA who comes to [facility] for left leg weakness and found to have septic shock secondary to acute cholecystitis. Patient did require 2 hours of Levophed on 05/03/2020, but has been doing well off of presser. Patient was downgraded to PCU. Continues on IV fluids and IV antibiotics. US gallbladder and MRCP consistent with cholecystitis. Reached out to general surgery. No surgery at this time due to inflammation, recommended surgery 4 to 6 weeks after inflammation resolves. On 05/06/2020, his gallbladder is visibly palpable, repeat CT demonstrates 9mm stone in CBD causing choledocholithiasis. Called several places. On waiting list at [facility] and [facility]. No bed availability at [facility]. Otherwise, dermatology following for rash on back. Suspected to be suspected to be eczematous dermatitis, but pending viral culture results for VZV. Plan/VTE VTE Prophylaxis Ordered?: Yes Plan 1. Septic shock -Secondary to acute cholecystitis -Required Levophed for 2 hours on 05/03/2020. Not on Levophed at this time -IV Zosyn and IV fluids 2. Acute cholecystitis -Imaging suggests acute cholecystitis -Total bilirubin not elevated -Continue following labs -Empirically on antibiotics -Spoke with general surgery, no surgery at this time due to inflammation. Plan for surgery 4 to 6 weeks after inflammation resolves. 3. Acute choledocholithiasis -9mm stone in CBD -Needs transfer due to no GI/ERCP this week 4. Left leg weakness May be secondary to infectious process, will treat infectious process Physical therapy 5. Acute renal injury Baseline creatinine is 0.8 Creatinine on admission was 1.6 IV fluids, holding nephrotoxic agents, supportive care -Close to baseline 6. Hyperkalemia Secondary to acute renal injury Resolved 7. Peripheral vascular disease Left leg not cold Continue aspirin, atorvastatin 8. Diabetes mellitus Sliding scale insulin 9. Rash on back Dermatology consulted, recommendations appreciated -Pending viral culture -Suspected to be eczematous dermatitis. On Triamcinolone cream BID 10. DVT prophylaxis Heparin Dispo: No GI/ERCP this week. Will need transfer for Choledocholithiasis. Pending beds at [facility] and [facility]. VS, I&O, 24H, [facility] Vital Signs/I&O Vital Signs Date Time Temp Pulse Resp B/P (MAP) Pulse Ox O2 Delivery O2 Flow Rate FiO2 05/07/20 16:00 98.9 76 22 169/73 (105) 93 Room Air 05/04/20 12:00 2.0 I&O- Last 24 Hours up to 6 AM 05/07/20 06:00 Intake Total 2300 ml Output Total 1675 ml Balance 625 ml Laboratory Data 24H LABS Laboratory Tests 2 05/06/20 21:16: Bedside Glucose (Misc Panel) 206H 05/07/20 06:41: Nucleated Red Blood Cells % (auto) 0.0, Anion Gap 5L, Glomerular Filtration Rate > 60.0, Calcium Level 7.7L, Total Bilirubin 0.4, Aspartate Amino Transf (AST/SGOT) 34, Alanine Aminotransferase (ALT/SGPT) 55, Alkaline Phosphatase 59, Total Protein 5.8L, Albumin 1.6L, Albumin/Globulin Ratio 0.4 05/07/20 11:52: Bedside Glucose (Misc Panel) 170H 05/07/20 16:43: Bedside Glucose (Misc Panel) 190H CBC/BMP Laboratory Tests 05/07/20 06:41 Microbiology Microbiology 05/05/20 Campylobacter (PCR), Received Pending 05/05/20 Clostridium difficile Toxin A&B PCR, Received Pending 05/05/20 Plesiomonas shigelloides (PCR), Received Pending 05/05/20 Salmonella (PCR)([place]), Received Pending 05/05/20 Vibrio Species (PCR), Received Pending 05/05/20 Vibrio Cholerae (PCR), Received Pending 05/05/20 Yersinia enterocolitica (PCR), Received Pending 05/05/20 Enteroaggregative E. coli (PCR), Received Pending 05/05/20 Enteropathogenic E. coli (PCR), Received Pending 05/05/20 Enterotoxigenic E. coli (PCR), Received Pending 05/05/20 E. coli Shiga-like Toxin (PCR), Received Pending 05/05/20 Escherichia coli 0157 (PCR), Received Pending 05/05/20 Enteroinvasive E. coli/Shigella PCR, Received Pending 05/05/20 Cryptosporidium (PCR), Received Pending 05/05/20 Cyclospora cayetanensis (PCR), Received Pending 05/05/20 Entamoeba histolytica (PCR), Received Pending 05/05/20 Giardia lamblia (PCR), Received Pending 05/05/20 Adenovirus Type F 40/41 (PCR), Received Pending 05/05/20 Astrovirus (PCR), Received Pending 05/05/20 Norovirus GI/GII (PCR), Received Pending 05/05/20 Rotavirus A (PCR), Received Pending 05/05/20 Sapovirus I/II/IV/V (PCR), Received Pending 05/03/20 Viral Culture, Received Pending 05/02/20 Blood Culture - Final, Complete NO GROWTH AFTER 5 DAYS 05/02/20 Blood Culture - Final, Complete NO GROWTH AFTER 5 DAYS HERNAN POWELL DO May 07, 2020 19:31
[2020-05-08] VITALS (7 sets, daily range): BP systolic 114–194; BP diastolic 50–80
[2020-05-08] MEDS: PIPERACILLIN/TAZOBACTAM SOD 4.5 GM in D5W MINI-BAG PLUS 50 ML IV SCH ×4 (01:06→18:16)
[2020-05-08] MEDS: NS 1,000 ML IV SCH ×2 (01:11→13:45)
[2020-05-08] MEDS: SODIUM CHLORIDE 0.9% INJ 10 ML SYR IV SCH ×3 (06:36→21:01)
[2020-05-08 07:07] LABS: HEMATOCRIT 27.8 % (42.0-52.0); HEMOGLOBIN 8.8 g/dl (13.5-17.5); MEAN CORPUSCULAR HEMOGLOBIN 27.4 pg (27.0-33.0); MEAN CORPUSCULAR HGB CONC 31.7 g/dl (32.0-36.5); MEAN CORPUSCULAR VOLUME 86.6 fl (80.0-96.0); PLATELET COUNT, AUTOMATED 250 10^3/uL (150-450); RED BLOOD COUNT 3.21 10^6/uL (4.30-6.10); WHITE BLOOD COUNT 11.9 10^3/uL (4.0-10.0)
[2020-05-08 07:31] LABS: ALBUMIN 1.6 GM/DL (3.2-5.2); ALT/SGPT 48 U/L (12-78); BILIRUBIN,TOTAL 0.4 MG/DL (0.2-1.0); BLOOD UREA NITROGEN 6 MG/DL (7-18); CALCIUM LEVEL 7.8 MG/DL (8.8-10.2); CARBON DIOXIDE LEVEL 21 MEQ/L (21-32); CHLORIDE LEVEL 112 MEQ/L (98-107); CREATININE FOR GFR 0.93 MG/DL (0.70-1.30); GLOMERULAR FILTRATION RATE > 60.0 (>49); GLUCOSE, FASTING 165 MG/DL (70-100); POTASSIUM SERUM 3.4 MEQ/L (3.5-5.1); SODIUM LEVEL 139 MEQ/L (136-145); TOTAL PROTEIN 5.7 GM/DL (6.4-8.2)
[2020-05-08] MEDS: TAMSULOSIN 0.4 MG CAP PO SCH (08:04)
[2020-05-08] MEDS: DOCUSATE SODIUM 100 MG CAP PO SCH ×2 (08:04→20:57)
[2020-05-08] MEDS: VANICREAM MOISTURIZING SKIN CREAM 113GM TUBE TOP SCH ×2 (08:04→20:57)
[2020-05-08] MEDS: ATORVASTATIN 20 MG TAB PO SCH (08:04)
[2020-05-08] MEDS: ASPIRIN 81 MG ENTERIC TAB PO SCH (08:04)
[2020-05-08] MEDS: GABAPENTIN 300 MG CAP PO SCH ×4 (08:04→20:57)
[2020-05-08] MEDS: MIRALAX *UNIT DOSE* 17GM PACKET PO SCH (08:04)
[2020-05-08] MEDS: HumaLOG INSULIN (NovoLOG) PER UNIT SC SCH ×4 (08:05→20:51)
[2020-05-08] MEDS: HEPARIN SOD (PORCINE) 5000UNITS/ML 1ML VIAL/SYRINGE SC SCH ×2 (08:05→20:58)
--- NOTE | 2020-05-08 09:11 | IPNPDOC ---
Date Seen The patient was seen on 05/08/20. Progress Note SUBJECTIVE: "Get the hell out of here. Don't do nothing." pt c/o left foot pain 04/21, on gabapentin, but does not want to change the dose. Pt refuses physical exam . still c/o nausea, no vomiting, and epigastric abd pain and left uq pain. "You're not my doctor. Don't touch me." Per RN, pt has been using offensive language. When asked if he agrees with transfer for ERCP, he says, "OK," but [facility] does not accept his insurance, and [facility] has no beds. When asked if he would consider [facility], pt says, "I don't know this shit. Don't do anything." OBJECTIVE PHYSICAL EXAMINATION:refused physical examination. VITAL SIGNS: Please see below. LABORATORY DATA, IMAGING STUDIES, MICROBIOLOGY: Please see below. ASSESSMENT AND PLAN: PROBLEMS: Medical noncompliance Septic shock , resolved acute cholecystitis Acute choledocholithiasis Anemia Hypokalemia Left leg weakness/ Left LE hyperaesthesia Peripheral neuropathy, worsened, but refused changes in meds. Acute renal injury Peripheral vascular disease with Right BKA Diabetes mellitus Rash on back PLAN: [facility] has no beds. still needing ERCP for choledocholithiasis. Per [facility], pt's insurance is not accepted, PFS aware. on IV abx. general surgery following. refuses exam. Per patient, pt's care will be transferred to a different provider in the morning. [facility] [place] been informed. VS, I&O, 24H, [facility] Vital Signs/I&O Vital Signs Date Time Temp Pulse Resp B/P (MAP) Pulse Ox O2 Delivery O2 Flow Rate FiO2 05/08/20 04:00 98.4 61 16 158/58 (91) 94 Room Air 05/04/20 12:00 2.0 I&O- Last 24 Hours up to 6 AM 05/08/20 06:00 Intake Total 4010 ml Output Total 2025 ml Balance 1985 ml Laboratory Data 24H LABS Laboratory Tests 2 05/07/20 11:52: Bedside Glucose (Misc Panel) 170H 05/07/20 16:43: Bedside Glucose (Misc Panel) 190H 05/07/20 21:08: Bedside Glucose (Misc Panel) 227H 05/08/20 06:37: Nucleated Red Blood Cells % (auto) 0.0, Anion Gap 6L, Glomerular Filtration Rate > 60.0, Calcium Level 7.8L, Total Bilirubin 0.4, Aspartate Amino Transf (AST/ SGOT) 26, Alanine Aminotransferase (ALT/SGPT) 48, Alkaline Phosphatase 60, Total Protein 5.7L, Albumin 1.6L, Albumin/Globulin Ratio 0.4 CBC/BMP Laboratory Tests 05/08/20 06:37 Microbiology Microbiology 05/05/20 Campylobacter (PCR), Received Pending 05/05/20 Clostridium difficile Toxin A&B PCR, Received Pending 05/05/20 Plesiomonas shigelloides (PCR), Received Pending 05/05/20 Salmonella (PCR)([place]), Received Pending 05/05/20 Vibrio Species (PCR), Received Pending 05/05/20 Vibrio Cholerae (PCR), Received Pending 05/05/20 Yersinia enterocolitica (PCR), Received Pending 05/05/20 Enteroaggregative E. coli (PCR), Received Pending 05/05/20 Enteropathogenic E. coli (PCR), Received Pending 05/05/20 Enterotoxigenic E. coli (PCR), Received Pending 05/05/20 E. coli Shiga-like Toxin (PCR), Received Pending 05/05/20 Escherichia coli 0157 (PCR), Received Pending 05/05/20 Enteroinvasive E. coli/Shigella PCR, Received Pending 05/05/20 Cryptosporidium (PCR), Received Pending 05/05/20 Cyclospora cayetanensis (PCR), Received Pending 05/05/20 Entamoeba histolytica (PCR), Received Pending 05/05/20 Giardia lamblia (PCR), Received Pending 05/05/20 Adenovirus Type F 40/41 (PCR), Received Pending 05/05/20 Astrovirus (PCR), Received Pending 05/05/20 Norovirus GI/GII (PCR), Received Pending 05/05/20 Rotavirus A (PCR), Received Pending 05/05/20 Sapovirus I/II/IV/V (PCR), Received Pending 05/03/20 Viral Culture, Received Pending 05/02/20 Blood Culture - Final, Complete NO GROWTH AFTER 5 DAYS 05/02/20 Blood Culture - Final, Complete NO GROWTH AFTER 5 DAYS PALLAVI SONG MD May 08, 2020 08:52
[2020-05-08] MEDS: POTASSIUM CHLORIDE 10 MEQ SR TABLET PO SCH (09:24)
[2020-05-08] MEDS ORDERED: NITROGLYCERIN 0.4 MG SUBL TABLET SL PRN (18:00)
[2020-05-08] MEDS ORDERED: NITROGLYCERIN 0.4 MG SUBL TABLET SL STA (18:00)
[2020-05-08] MEDS ORDERED: MORPHINE 4 MG/ML 1ML VIAL/SYRINGE (J2270) IV ONE (18:00)
[2020-05-08] MEDS ORDERED: cloNIDine 0.2 MG TAB PO ONE (18:15)
[2020-05-08] MEDS ORDERED: amLODIPine 10 MG TAB PO ONE (18:15)
[2020-05-08 19:07] LABS: CK-MB VALUE MASS < 1.0 NG/ML (<3.6); CPK CREATINE PHOSPHOKINASE 35 U/L (39-308); MB/CK RELATIVE INDEX 2.86 (< OR =4); TROPONIN I < 0.02 NG/ML (< 0.10)
[2020-05-09] MEDS: NS 1,000 ML IV SCH (01:00)
[2020-05-09] MEDS: PIPERACILLIN/TAZOBACTAM SOD 4.5 GM in D5W MINI-BAG PLUS 50 ML IV SCH ×4 (01:00→18:12)
[2020-05-09 04:00] VITALS: BP 144/73
[2020-05-09] MEDS: SODIUM CHLORIDE 0.9% INJ 10 ML SYR IV SCH ×3 (06:08→21:29)
[2020-05-09] MEDS: traMADol 50 MG TAB PO PRN (06:32)
[2020-05-09 06:45] LABS: HEMATOCRIT 27.7 % (42.0-52.0); HEMOGLOBIN 8.9 g/dl (13.5-17.5); MEAN CORPUSCULAR HGB CONC 32.1 g/dl (32.0-36.5); MEAN CORPUSCULAR VOLUME 87.1 fl (80.0-96.0); PLATELET COUNT, AUTOMATED 286 10^3/uL (150-450); RED BLOOD COUNT 3.18 10^6/uL (4.30-6.10); WHITE BLOOD COUNT 11.8 10^3/uL (4.0-10.0)
[2020-05-09 07:16] LABS: ALBUMIN 1.5 GM/DL (3.2-5.2); ALT/SGPT 39 U/L (12-78); BILIRUBIN,TOTAL 0.4 MG/DL (0.2-1.0); BLOOD UREA NITROGEN 6 MG/DL (7-18); CALCIUM LEVEL 7.9 MG/DL (8.8-10.2); CARBON DIOXIDE LEVEL 22 MEQ/L (21-32); CHLORIDE LEVEL 113 MEQ/L (98-107); CREATININE FOR GFR 0.83 MG/DL (0.70-1.30); GLOMERULAR FILTRATION RATE > 60.0 (>49); GLUCOSE, FASTING 153 MG/DL (70-100); POTASSIUM SERUM 3.3 MEQ/L (3.5-5.1); SODIUM LEVEL 142 MEQ/L (136-145); TOTAL PROTEIN 5.7 GM/DL (6.4-8.2)
[2020-05-09] MEDS ORDERED: OLANZapine 5 MG TAB PO PRN (07:45)
[2020-05-09 08:00] VITALS: BP 150/70
[2020-05-09] MEDS: HEPARIN SOD (PORCINE) 5000UNITS/ML 1ML VIAL/SYRINGE SC SCH ×2 (08:36→21:00)
[2020-05-09] MEDS: KCL 40MEQ in NS 1000ML 1,000 ML IV SCH ×2 (08:36→20:52)
[2020-05-09] MEDS: HumaLOG INSULIN (NovoLOG) PER UNIT SC SCH ×4 (08:37→21:00)
[2020-05-09] MEDS: ASPIRIN 81 MG ENTERIC TAB PO SCH (08:38)
[2020-05-09] MEDS: VANCOMYCIN ORAL SOL 250MG/5ML ORAL SYRINGE PO SCH ×3 (08:38→18:12)
[2020-05-09] MEDS: DOCUSATE SODIUM 100 MG CAP PO SCH ×2 (08:38→21:00)
[2020-05-09] MEDS: GABAPENTIN 300 MG CAP PO SCH ×4 (08:38→21:29)
[2020-05-09] MEDS: POTASSIUM CHLORIDE 10 MEQ SR TABLET PO SCH (08:39)
[2020-05-09] MEDS: TAMSULOSIN 0.4 MG CAP PO SCH (08:39)
[2020-05-09] MEDS: ATORVASTATIN 20 MG TAB PO SCH (08:39)
[2020-05-09] MEDS: amLODIPine 5 MG TAB PO SCH (08:40)
[2020-05-09] MEDS: VANICREAM MOISTURIZING SKIN CREAM 113GM TUBE TOP SCH ×2 (08:40→21:29)
[2020-05-09] MEDS ORDERED: FUROSEMIDE 40MG/4ML VIAL (J1940) IV ONE (10:30)
--- NOTE | 2020-05-09 10:53 | IPNPDOC ---
Subjective Date Seen The patient was seen on 05/09/20. Subjective Chief Complaint/HPI awake alert oriented and cooperative this am. Did not offer any complaints. Say sometimes his belly hurts and feels tight . Having bowel movements. No fever or chills. Objective Physical Examination General Exam: Positive: Alert, Cooperative, No Acute Distress Eye Exam: Positive: Conjunctiva & lids normal, EOMI; Negative: Sclera icteric ENT Exam: Positive: Atraumatic, Mucous membr. moist/pink, Pharynx Normal Neck Exam: Positive: Supple; Negative: JVD Chest Exam: Positive: Clear to auscultation, Rales (crackles at the bases), Diminished (jeferson the bases) Heart Exam: Positive: Rate Normal, Regular Rhythm, Normal S1, Normal S2; Negative: Murmurs, Rubs Abdomen Exam: Positive: Normal bowel sounds, Tenderness (right upper quadrant); Negative: Soft Extremity Exam: Positive: Edema (trace edema on theleft, more onthe thighs. ), Other (right BKA. ) Neuro Exam: Positive: Normal Speech, Strength at 5/5 X4 ext, Normal Tone, Cranial Nerves 3-12 NL Psych Exam: Negative: Memory Intact Assessment /Plan Assessment Mr. Khoury is a 69-year-old male with peripheral vascular disease and right AKA who presented to to [facility] for left leg weakness and found to have septic shock secondary to acute cholecystitis. Patient did require 2 hours of Levophed on 05/03/2020, but has been doing well off of presser. Patient was downgraded to PCU. Continues on IV fluids and IV antibiotics. US gallbladder and MRCP was consistent with cholecystitis with gall stones. Reached out to general surgery. No surgery at this time due to inflammation, recommended surgery 4 to 6 weeks after inflammation resolves. On 05/06/2020, his gallbladder was palpable, repeat CT demonstrates 9mm stone in CBD causing choledocholithiasis. Several places were called On waiting list at [facility] and [facility]. Has a rash on his back. Dermatology following for rash on back. Suspected to be suspected to be eczematous dermatitis, but pending viral culture results for VZV. S/P Septic shock -Secondary to acute cholecystitis -Required Levophed for 2 hours on 05/03/2020. Not on Levophed at this time -IV Zosyn and IV fluids Acute cholecystitis with Choledocholithiasis. -Imaging suggests acute cholecystitis -9mm stone in CBD -Needs transfer due to no GI/ERCP this week -Total bilirubin not elevated - On Zosyn C diff diarrhea -started on vancomycin PO Anemia -Baseline about 10 to 11 - no signs of overt bleeding. -will order stool occult blood and iron studies. Left leg weakness -Physical therapy when acute issues resolved. Acute renal injury -Resolved Hypokalemia -being replaced Peripheral vascular disease - has right AKA in 2019 due to gangrene of the right foot and ankle. - History of right axilla femoral-femoral bypass and left femoral-femoral bypass. Continue aspirin, atorvastatin Diabetes mellitus with peripheral neuropathy Sliding scale insulin lispro Q6 hours as NPO -gabapentin, tramadol prn Rash on back Dermatology consulted, recommendations appreciated -Pending viral culture -Suspected to be eczematous dermatitis. On Triamcinolone cream BID History of stroke times three with the first one at age 47. - ASA, statin Post-traumatic stress disorder BPH - continue flomax, has egan now. DVT prophylaxis Heparin Dispo: No GI/ERCP this week. Will need transfer for Choledocholithiasis. Pending beds at [facility] and [facility]. Plan/VTE VTE Prophylaxis Ordered?: Yes VS, I&O, 24H, Fishbone Vital Signs/I&O Vital Signs Date Time Temp Pulse Resp B/P (MAP) Pulse Ox O2 Delivery O2 Flow Rate FiO2 05/09/20 08:40 72 150/70 05/09/20 08:00 98.2 18 93 Room Air 05/08/20 08:00 1.0 I&O- Last 24 Hours up to 6 AM 05/09/20 06:00 Intake Total 3280 ml Output Total 2850 ml Balance 430 ml Laboratory Data 24H LABS Laboratory Tests 2 05/08/20 11:38: Bedside Glucose (Misc Panel) 188H 05/08/20 16:40: Bedside Glucose (Misc Panel) 240H 05/08/20 18:20: Total Creatine Kinase 35L, Creatine Kinase MB < 1.0, Creatine Kinase MB Relative Index 2.86, Troponin I < 0.02 05/08/20 20:04: Bedside Glucose (Misc Panel) 171H 05/09/20 06:00: Nucleated Red Blood Cells % (auto) 0.0, Anion Gap 7L, Glomerular Filtration Rate > 60.0, Calcium Level 7.9L, Total Bilirubin 0.4, Aspartate Amino Transf (AST/SGOT) 21, Alanine Aminotransferase (ALT/SGPT) 39, Alkaline Phosphatase 58, Total Protein 5.7L, Albumin 1.5L, Albumin/Globulin Ratio 0.4 CBC/BMP Laboratory Tests 05/09/20 06:00 Microbiology Microbiology 05/05/20 Campylobacter (PCR) - Final, Complete 05/05/20 Clostridium difficile Toxin A&B PCR - Final, Complete 05/05/20 Plesiomonas shigelloides (PCR) - Final, Complete 05/05/20 Salmonella (PCR)([place]) - Final, Complete 05/05/20 Vibrio Species (PCR) - Final, Complete 05/05/20 Vibrio Cholerae (PCR) - Final, Complete 05/05/20 Yersinia enterocolitica (PCR) - Final, Complete 05/05/20 Enteroaggregative E. coli (PCR) - Final, Complete 05/05/20 Enteropathogenic E. coli (PCR) - Final, Complete 05/05/20 Enterotoxigenic E. coli (PCR) - Final, Complete 05/05/20 E. coli Shiga-like Toxin (PCR) - Final, Complete 05/05/20 Escherichia coli 0157 (PCR) - Final, Complete 05/05/20 Enteroinvasive E. coli/Shigella PCR - Final, Complete 05/05/20 Cryptosporidium (PCR) - Final, Complete 05/05/20 Cyclospora cayetanensis (PCR) - Final, Complete 05/05/20 Entamoeba histolytica (PCR) - Final, Complete 05/05/20 Giardia lamblia (PCR) - Final, Complete 05/05/20 Adenovirus Type F 40/41 (PCR) - Final, Complete 05/05/20 Astrovirus (PCR) - Final, Complete 05/05/20 Norovirus GI/GII (PCR) - Final, Complete 05/05/20 Rotavirus A (PCR) - Final, Complete 05/05/20 Sapovirus I/II/IV/V (PCR) - Final, Complete 05/03/20 Viral Culture, Received Pending 05/02/20 Blood Culture - Final, Complete NO GROWTH AFTER 5 DAYS 05/02/20 Blood Culture - Final, Complete NO GROWTH AFTER 5 DAYS MARILU RICO MD May 09, 2020 10:53
[2020-05-09 12:00] VITALS: BP 147/67
[2020-05-09 12:11] LABS: FERRITIN 503 NG/ML (26-388); IRON (FE) 16 UG/DL (65-175); PERCENT SATURATION 13.8 % (19.7-50.0); TOTAL IRON BINDING CAPACITY 116 UG/DL (250-450)
[2020-05-09 12:15] LABS: VITAMIN B12 LEVEL 345 PG/ML (247-911)
[2020-05-09 12:16] LABS: FOLATE 12.2 NG/ML (>5.4)
[2020-05-09 16:00] VITALS: BP 139/63
[2020-05-09 20:00] VITALS: BP 120/60
[2020-05-10] VITALS: BP 122/68
[2020-05-10] MEDS: VANCOMYCIN ORAL SOL 250MG/5ML ORAL SYRINGE PO SCH ×6 (00:05→17:53)
[2020-05-10] MEDS: PIPERACILLIN/TAZOBACTAM SOD 4.5 GM in D5W MINI-BAG PLUS 50 ML IV SCH ×4 (00:05→17:52)
[2020-05-10 04:00] VITALS: BP 150/72
[2020-05-10] MEDS: SODIUM CHLORIDE 0.9% INJ 10 ML SYR IV SCH ×3 (05:14→22:00)
[2020-05-10 05:26] LABS: HEMATOCRIT 28.4 % (42.0-52.0); HEMOGLOBIN 9.1 g/dl (13.5-17.5); MEAN CORPUSCULAR HEMOGLOBIN 27.7 pg (27.0-33.0); MEAN CORPUSCULAR VOLUME 86.6 fl (80.0-96.0); PLATELET COUNT, AUTOMATED 363 10^3/uL (150-450); RED BLOOD COUNT 3.28 10^6/uL (4.30-6.10)
[2020-05-10 05:48] LABS: ALBUMIN 1.7 GM/DL (3.2-5.2); ALT/SGPT 41 U/L (12-78); BILIRUBIN,TOTAL 0.4 MG/DL (0.2-1.0); BLOOD UREA NITROGEN 6 MG/DL (7-18); CALCIUM LEVEL 7.6 MG/DL (8.8-10.2); CARBON DIOXIDE LEVEL 25 MEQ/L (21-32); CHLORIDE LEVEL 111 MEQ/L (98-107); CREATININE FOR GFR 0.97 MG/DL (0.70-1.30); GLOMERULAR FILTRATION RATE > 60.0 (>49); GLUCOSE, FASTING 172 MG/DL (70-100); SODIUM LEVEL 143 MEQ/L (136-145); TOTAL PROTEIN 5.3 GM/DL (6.4-8.2)
[2020-05-10 08:00] VITALS: BP 184/88
[2020-05-10] MEDS: DOCUSATE SODIUM 100 MG CAP PO SCH ×2 (09:00→19:27)
[2020-05-10] MEDS: HumaLOG INSULIN (NovoLOG) PER UNIT SC SCH ×5 (09:09→21:00)
[2020-05-10] MEDS: HEPARIN SOD (PORCINE) 5000UNITS/ML 1ML VIAL/SYRINGE SC SCH ×2 (09:10→20:28)
[2020-05-10] MEDS: ASPIRIN 81 MG ENTERIC TAB PO SCH (09:10)
[2020-05-10] MEDS: TAMSULOSIN 0.4 MG CAP PO SCH (09:10)
[2020-05-10] MEDS: GABAPENTIN 300 MG CAP PO SCH ×4 (09:10→21:57)
[2020-05-10] MEDS: amLODIPine 5 MG TAB PO SCH (09:10)
[2020-05-10] MEDS: POTASSIUM CHLORIDE 10 MEQ SR TABLET PO SCH (09:11)
[2020-05-10] MEDS: ATORVASTATIN 20 MG TAB PO SCH (09:11)
[2020-05-10] MEDS: VANICREAM MOISTURIZING SKIN CREAM 113GM TUBE TOP SCH ×2 (09:15→21:00)
--- NOTE | 2020-05-10 11:39 | IPNPDOC ---
Subjective Date Seen The patient was seen on 05/10/20. Subjective Chief Complaint/HPI Abdominal pain worse today. Right upper quadrant sore, has been eating only soup and crackers the last few days. Objective Physical Examination General Exam: Positive: Alert, Cooperative, No Acute Distress Eye Exam: Positive: Conjunctiva & lids normal, EOMI; Negative: Sclera icteric ENT Exam: Positive: Atraumatic, Mucous membr. moist/pink, Pharynx Normal Neck Exam: Positive: Supple; Negative: JVD Chest Exam: Positive: Clear to auscultation, Rales (crackles at the bases), Diminished (jeferson the bases) Heart Exam: Positive: Rate Normal, Regular Rhythm, Normal S1, Normal S2; Negative: Murmurs, Rubs Abdomen Exam: Positive: Normal bowel sounds, Tenderness (right upper quadrant with mild guarding.), Other (No rebound or rigidity); Negative: Soft Extremity Exam: Positive: Other (right AKA) Neuro Exam: Positive: Normal Speech, Strength at 5/5 X4 ext, Normal Tone, Cranial Nerves 3-12 NL Psych Exam: Negative: Memory Intact Assessment /Plan Assessment Mr. Khoury is a 69-year-old male with peripheral vascular disease and right AKA who presented to to [facility] for left leg weakness and found to have septic shock secondary to acute cholecystitis. Patient did require 2 hours of Levophed on 05/03/2020, but has been doing well off of presser. Patient was downgraded to PCU. Continues on IV fluids and IV antibiotics. US gallbladder and MRCP was consistent with cholecystitis with gall stones. Reached out to general surgery. No surgery at this time due to inflammation, recommended surgery 4 to 6 weeks after inflammation resolves. On 05/06/2020, his gallbladder was palpable, repeat CT demonstrates 9mm stone in CBD causing choledocholithiasis. Several places were called On waiting list at [facility] and [facility]. Has a rash on his back. Dermatology following for rash on back. Suspected to be suspected to be eczematous dermatitis, but pending viral culture results for VZV. S/P Septic shock -Secondary to acute cholecystitis -Required Levophed for 2 hours on 05/03/2020. Not on Levophed at this time -IV Zosyn and IV fluids Acute cholecystitis with Choledocholithiasis. -Imaging suggests acute cholecystitis -9mm stone in CBD -LFTs normal , but persistent RUQ pain - On Zosyn -Was awaiting for bed in [facility]/ [facility] as there was no GI this week -Consulted Dr Savage today and he will see the patient and ERCP tomorrow clear liquids today then NPO midnight. C diff diarrhea -started on vancomycin PO Anemia -Baseline about 10 to 11 - no signs of overt bleeding. - No iron def noted, or folate def, Vit B12 low normal. Left leg weakness -Physical therapy when acute issues resolved. Acute renal injury -Resolved Hypokalemia -being replaced Peripheral vascular disease - has right AKA in 2019 due to gangrene of the right foot and ankle. - History of right axilla femoral-femoral bypass and left femoral-femoral bypass. Continue aspirin, atorvastatin Diabetes mellitus with peripheral neuropathy Sliding scale insulin lispro Q6 hours as NPO -gabapentin, tramadol prn Stage 2 sacral decubiti present on admission patient refusing to be turned Has diarrhea also refusing to be cleaned Rash on back Dermatology consulted, recommendations appreciated -Pending viral culture -Suspected to be eczematous dermatitis. On Triamcinolone cream BID History of stroke times three with the first one at age 47. - ASA, statin Post-traumatic stress disorder BPH - continue flomax, has egan now. DVT prophylaxis Heparin Dispo: No GI/ERCP this week. Will need transfer for Choledocholithiasis. Pending beds at [facility] and [facility]. Plan/VTE VTE Prophylaxis Ordered?: Yes VS, I&O, 24H, Fishbone Vital Signs/I&O Vital Signs Date Time Temp Pulse Resp B/P (MAP) Pulse Ox O2 Delivery O2 Flow Rate FiO2 05/10/20 09:10 72 184/88 05/10/20 08:00 98.0 17 95 Room Air 05/08/20 08:00 1.0 I&O- Last 24 Hours up to 6 AM 05/10/20 06:00 Intake Total 1220 ml Output Total 5200 ml Balance -3980 ml Laboratory Data 24H LABS Laboratory Tests 2 05/09/20 12:13: Bedside Glucose (Misc Panel) 158H 05/09/20 17:48: Bedside Glucose (Misc Panel) 152H 05/09/20 20:08: Bedside Glucose (Misc Panel) 248H 05/10/20 04:52: Nucleated Red Blood Cells % (auto) 0.0, Anion Gap 7L, Glomerular Filtration Rate > 60.0, Calcium Level 7.6L, Total Bilirubin 0.4, Aspartate Amino Transf (AST/SGOT) 24, Alanine Aminotransferase (ALT/SGPT) 41, Alkaline Phosphatase 70, Total Protein 5.3L, Albumin 1.7L, Albumin/Globulin Ratio 0.5 CBC/BMP Laboratory Tests 05/10/20 04:52 Microbiology Microbiology 05/05/20 Campylobacter (PCR) - Final, Complete 05/05/20 Clostridium difficile Toxin A&B PCR - Final, Complete 05/05/20 Plesiomonas shigelloides (PCR) - Final, Complete 05/05/20 Salmonella (PCR)([place]) - Final, Complete 05/05/20 Vibrio Species (PCR) - Final, Complete 05/05/20 Vibrio Cholerae (PCR) - Final, Complete 05/05/20 Yersinia enterocolitica (PCR) - Final, Complete 05/05/20 Enteroaggregative E. coli (PCR) - Final, Complete 05/05/20 Enteropathogenic E. coli (PCR) - Final, Complete 05/05/20 Enterotoxigenic E. coli (PCR) - Final, Complete 05/05/20 E. coli Shiga-like Toxin (PCR) - Final, Complete 05/05/20 Escherichia coli 0157 (PCR) - Final, Complete 05/05/20 Enteroinvasive E. coli/Shigella PCR - Final, Complete 05/05/20 Cryptosporidium (PCR) - Final, Complete 05/05/20 Cyclospora cayetanensis (PCR) - Final, Complete 05/05/20 Entamoeba histolytica (PCR) - Final, Complete 05/05/20 Giardia lamblia (PCR) - Final, Complete 05/05/20 Adenovirus Type F 40/41 (PCR) - Final, Complete 05/05/20 Astrovirus (PCR) - Final, Complete 05/05/20 Norovirus GI/GII (PCR) - Final, Complete 05/05/20 Rotavirus A (PCR) - Final, Complete 05/05/20 Sapovirus I/II/IV/V (PCR) - Final, Complete 05/03/20 Viral Culture, Received Pending 05/02/20 Blood Culture - Final, Complete NO GROWTH AFTER 5 DAYS 05/02/20 Blood Culture - Final, Complete NO GROWTH AFTER 5 DAYS MARILU RICO MD May 10, 2020 11:38
[2020-05-10 12:00] VITALS: BP 140/68
--- NOTE | 2020-05-10 13:39 | CR.PDOC ---
General Date of Consultation: May 10, 2020 Referring Provider: VIV CHOE MD Primary Care Physician: Elizabeth Carbone Attending Physician: EDMOND SETHI MD Consultation REFERRING PHYSICIAN: Dr. Viv Choe M.D. REASON FOR CONSULTATION: Abnormal magnetic resonance cholangiopancreatography (MRCP) HISTORY OF PRESENT ILLNESS: Yong is a 69-year-old male with PMHx of peripheral vascular disease status post right AKA, CVA 3, zmp-girpngd-oyvdelxgk diabetes mellitus, hyperlipidemia, and tobacco use ([id number] history), who presented via EMS to [facility] 8 days ago (05/02) with chief complaint of left lower extremity weakness while standing to urinate. Upon presentation, he had leukocytosis (WBC 29.9) and ROBERT, and subsequently went into septic shock on 05/02- overnight requiring an ICU transfer, placement of triple-lumen catheter and levophed for 2 hours. He was placed on 4.5 g IV Zosyn every 6 hours for broad spectrum antibiotic coverage and has remained on Zosyn throughout the hospital stay (today is day 9 of administration). A renal ultrasound ordered for patient's ROBERT work-up was suggestive for cholecystitis. Subsequent gallbladder ultrasound showed cholelithiasis with findings consistent with acute cholecystitis as well as extrahepatic biliary ductal dilation with no ductal calculus seen, but subsequent MRCP was suggested. MRCP showed biliary dilatation with common bile duct max diameter 12 mm as well as two distal CBD stones measuring 8 and 5 mm. There is also significant gallbladder distention with edema and wall thickening as well as a large stone in the gallbladder neck. In conjunction with the above-mentioned imaging findings, patient endorses sharp, waxing and waning lower quadrant abdominal pain since being admitted to the hospital. He states the pain fluctuates between lower quadrants on a daily basis; one day. The left lower quadrant, next day the right lower quadrant, then the next day back to the left and so on. In addition, he endorses intermittent nausea with a decreased appetite and somewhat early satiety, as well as diarrhea over the past 3 days, averaging approximately two watery stools per day. When asked if there was any blood in his stool, he reports being unable to answer the question since he is currently incontinent and unable to ambulate/be moved to bedside commode. He also denies any specific smell to his stool as his nose is "plugged up." A GI panel was subsequently ordered, which showed presence of C. difficile and the patient was started on oral vancomycin yesterday (05/09). Hospital service contacted general surgery regarding the imaging suggestive of acute cholecystitis and due to patient's current inflammation, cholecystectomy is being deferred. At this point, hospital service reached out to the gastroenterology service for further workup of MRCP findings and possible ERCP. Pertinent NEGATIVE GI symptoms: Denies emesis/, hematocrit emesis, recent unintentional weight loss, melena, or hematochezia. Current status of bowel movements discussed above in HPI. HOME MEDICATIONS: *Not any anticoagulants or clopidogrel at home. Currently receiving heparin subcutaneously 5000 units every 12 hours as inpatient. Aspirin 81 mg Atorvastatin Furosemide Metformin Glipizide Jardiance Lisinopril Gabapentin Tamsulosin Ketoconazole, as needed Tramadol, as needed PAST MEDICAL HISTORY: Peripheral vascular disease, status post right gzlxr-rxj-kfyu" Kjv-hjuctbd-noodzcxwq diabetes mellitus. Current smoker, 11-bher-xshy history Cerebrovascular accident 3 (first occurred at 47 years old). Hyperlipidemia. Posterior traumatic stress disorder. Insomnia PAST SURGICAL HISTORY: No history of abdominal surgeries (right sburg-vsr-stek amputation in June 2019 secondary to gangrenous foot; right and left sided femoral femoral bypass) SOCIAL HISTORY: 08-kabm-bnpx smoking history up until 3 months ago where he switch to 2 cigarettes a day. Former significant alcohol use, stopped drinking altogether 22 years ago. Denies any current or former illegal/IV/recreational drug use. . Lives with friend. 6 grown children (3 sons, 3 daughters). 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 FAMILY HISTORY: Denies known family history of gastrointestinal cancers or gastrointestinal diseases altogether. Prior endoscopies: Patient denies undergoing any previous EGD or colonoscopy studies. Upon review of [facility] records, no endoscopies documented. Prior GI evaluation: None in [facility] REVIEW OF SYSTEMS: GASTROINTESTINAL: As stated above CONSTITUTIONAL: Denies fever, chills, or night sweats. HEENT: Denies dysphagia, odynophagia, photophobia, ear pain or discharge CARDIOVASCULAR: Denies chest pain, chest pressure, palpitations, or left lower extremity swelling RESPIRATORY: Endorses intermittent episodes of increased work of breathing. Denies cough or pleuritic chest pain GENITOURINARY: Denies burning sensation with urination or hematuria MUSCULOSKELETAL: Denies specific arthralgias at this time. Status post right ofjwn-bjb-ntvq amputation. Mostly bedbound now, but uses wheelchair at home. SKIN: Endorses redness of skin over belt line on the left flank. NEUROLOGICAL: Denies loss of consciousness or focal motor weakness HEMATOLOGIC: Denies easy bleeding of gums or easy bruising. PHYSICAL EXAMINATION: VITAL SIGNS: Please see below. GENERAL APPEARANCE: Pleasant male. Appears somewhat disheveled and older than stated age. NAD. A & Ox3. HEENT: Normocephalic, atraumatic. Yellow crusting dispersed over scalp. Anicteric, noninjected sclera. No conjunctival pallor. Edentulous. No pharyngeal erythema or exudate appreciated. Large, extensive aquino. NECK: Trachea midline. There is a catheter present through the right internal jugular vein. No cervical or supraclavicular lymphadenopathy appreciated. CHEST: There is a well-healed, roughly 4 cm scar in the right upper portion of the patient's chest. RESPIRATORY: Moderate bilateral crackles of lung bases appreciated anteriorly and laterally. Symmetric chest expansion with bilateral air entry. Breathing room air. CARDIOVASCULAR: Currently on telemetry. Regular rate, regular rhythm. Normal S1, S2. Difficult to appreciate for JVD because of patient's aquino. ABDOMEN: Soft, obese. Tenderness of the right upper quadrant with positive Will sign. There is also some bloating appreciated over right side of the abdomen, most pronounced in the right upper quadrant. Hyperactive bowel sounds present. No rigidity appreciated. No tympany to percussion. No hepatomegaly or splenomegaly appreciated. No palpable masses. RECATL EXAM: Deferred at this time in the setting of possible ERCP tomorrow and active c. diff colitis (no reports of blood in stool). EXTREMITIES: Right lower extremity has an above the knee amputation. No left lower extremity or left pedal edema. Left foot onychomycosis with discoloration hardening of skin. NEUROLOGICAL: Awake, alert and oriented 3. No focal deficits appreciated. Moving all extremities. SKIN: There is a moderately erythematous rash over the patient's left flank along the belt line with no evidence of significant crusting or vesicles. No significant warmth or pain upon palpation. GENITOURINARY: There is a Miller catheter present with approximately 375 cc of light yellow colored urine collected. PSYCHIATRIC: Mood and affect appear appropriate LABORATORY DATA: Reviewed; disclosed below. HCV Screening: No HCVRNA serology studies, the patient did have a negative (less than 0.8) HCV antibody index in 2018. Imaging: Gallbladder ultrasound, 05/03/20 Findings: "Liver: The liver demonstrates increased echogenicity with decreased visualization of periportal fat with moderately severe sound attenuation. Gallbladder: Gallbladder luminal distention is present measuring 5.4 x 5.6 cm. A single 3.0 cm gallstone is impacted in the gallbladder neck. Moderate wall thickening. The gallbladder wall measures 6.2 mm. No gallstones. No definite pericholecystic fluid identified. Common bile duct: The extrahepatic bile ducts are dilated, measuring 9.2 mm. No ductal calculus identified. Pancreas: The pancreas neck is unremarkable. The remainder of the gland is obscured by bowel gas." MRCP (abdominal MRI), 05/04/20 Impression: "Gallbladder is significantly distended with diffuse wall thickening and edema. Large gallstone in the neck of the gallbladder. Mild pericholecystic fluid. Biliary dilatation. I suspect cholecystitis. In addition there are 2 calculi in the distal common bile duct measuring 8 and 5 mm. Common bile duct itself measures 12 mm in maximum diameter. CT abdomen/pelvis, 05/06/20 Findings: "The gallbladder is moderately distended and demonstrates wall thickening along with pericholecystic inflammatory changes, 2.5 cm gallstone at the neck of the gallbladder, common bile duct dilatation and obstructing distal CBD stone measuring roughly 9 mm. Liver, spleen, pancreas, and bilateral adrenal glands are normal for noncontrast evaluation. Kidneys demonstrate mild symmetric chronic perinephric stranding and bilateral hypodensities likely representing cysts. The enteric system is without obstruction or acute inflammatory process. Scattered sigmoid diverticula noted without acute diverticulitis" Impression: "Acute cholecystitis as described above secondary to 9 mm obstructing choledocholith in the distal CBD. Chronic nonacute findings as described above. Lung bases demonstrate small pleural effusions and bibasilar atelectasis along with findings to suggest pulmonary vascular congestion." IMPRESSION: #Acute cholecystitis secondary to choledocholithiasis, status post septic shock -Multiple imaging studies suggestive of acute cholecystitis with CBD dilation secondary to multiple stones, largest being 9 mm in CBD -White blood cell count has been trending down over the past few days; no curr ent elevation in total bilirubin, alkaline phosphatase, or transaminases but continues to have intermittent abdominal pain as discussed in HPI -Patient is on day #9 of Zosyn administration -Per general surgery, cholecystectomy will be deferred until inflammation subsides #Clostridioides difficile colitis -Positive C. diff toxins A & B on 05/06 stool analysis -Currently on day 2 of oral vancomycin 2-50 mg every 6 hours RECOMMENDATIONS: -At this point, gastroenterology service is preparing for possible ERCP tomorrow (05/11), later afternoon. This would not be an emergent indication as patient's white count has been trending down, he's hemodynamically stable and afebrile, and he does not currently have elevated transaminases, total bilirubin, or alkaline phosphatase. Clinically, he does appear to be in mild to moderate discomfort secondary to the abdominal pain, which serves as main impetus of pursuing ERCP while inpatient. -In preparation for possible ERCP tomorrow, pt will be npo after midnight tonight. Okay to continue pt's home 81 mg ASA administration, and to administer 0900 sc heparin tomorrow since at least 6 hours will subsequently pass before the ERCP will be done (earliest possible OR time tomorrow of 1600). -Patient was educated about prior test/imaging results and all questions were answered. -Patient also subsequently educated about procedures, indications, risks ( including but not limited to bleeding, infection, perforation, anesthesia risks, including ), benefits and all alternatives including conservative measures without intervention. Patient verbalized understanding and consented for the procedure. -Should ERCP indeed occur on 05/11, please follow the operative note for post procedure recommendations. -Plan of care was educated patient and patient verbalized understanding and agreed. All questions were answered. -Recommendations will subsequently be communicated to the hospitalist/primary service. Patient will follow with PCP upon discharge for routine medical care. Attending physician attestation: I personally reviewed the history above and reviewed with patient and examined the patient again. Agree with the above assessment and recommendations above done by resident physician with below changes; Patient is planned for ERCP tomorrow. Follow operative note for post procedure recommendations. The procedure indications risks, benefits and alternatives again discussed with patient and all questions answered. Vital Signs/I&O Vital Signs Date Time Temp Pulse Resp B/P (MAP) Pulse Ox O2 Delivery O2 Flow Rate FiO2 05/10/20 09:10 72 184/88 05/10/20 08:00 98.0 17 95 Room Air 05/08/20 08:00 1.0 I&O- Last 24 Hours up to 6 AM 05/10/20 06:00 Intake Total 1220 ml Output Total 5200 ml Balance -3980 ml Laboratory Data Labs 24H Laboratory Tests 2 05/09/20 17:48: Bedside Glucose (Misc Panel) 152H 05/09/20 20:08: Bedside Glucose (Misc Panel) 248H 05/10/20 04:52: Nucleated Red Blood Cells % (auto) 0.0, Anion Gap 7L, Glomerular Filtration Rate > 60.0, Calcium Level 7.6L, Total Bilirubin 0.4, Aspartate Amino Transf (AST/SGOT) 24, Alanine Aminotransferase (ALT/SGPT) 41, Alkaline Phosphatase 70, Total Protein 5.3L, Albumin 1.7L, Albumin/Globulin Ratio 0.5 05/10/20 12:10: Bedside Glucose (Misc Panel) 172H CBC/BMP Laboratory Tests 05/10/20 04:52 Microbiology Microbiology 05/05/20 Campylobacter (PCR) - Final, Complete 05/05/20 Clostridium difficile Toxin A&B PCR - Final, Complete 05/05/20 Plesiomonas shigelloides (PCR) - Final, Complete 05/05/20 Salmonella (PCR)([place]) - Final, Complete 05/05/20 Vibrio Species (PCR) - Final, Complete 05/05/20 Vibrio Cholerae (PCR) - Final, Complete 05/05/20 Yersinia enterocolitica (PCR) - Final, Complete 05/05/20 Enteroaggregative E. coli (PCR) - Final, Complete 05/05/20 Enteropathogenic E. coli (PCR) - Final, Complete 05/05/20 Enterotoxigenic E. coli (PCR) - Final, Complete 05/05/20 E. coli Shiga-like Toxin (PCR) - Final, Complete 05/05/20 Escherichia coli 0157 (PCR) - Final, Complete 05/05/20 Enteroinvasive E. coli/Shigella PCR - Final, Complete 05/05/20 Cryptosporidium (PCR) - Final, Complete 05/05/20 Cyclospora cayetanensis (PCR) - Final, Complete 05/05/20 Entamoeba histolytica (PCR) - Final, Complete 05/05/20 Giardia lamblia (PCR) - Final, Complete 05/05/20 Adenovirus Type F 40/41 (PCR) - Final, Complete 05/05/20 Astrovirus (PCR) - Final, Complete 05/05/20 Norovirus GI/GII (PCR) - Final, Complete 05/05/20 Rotavirus A (PCR) - Final, Complete 05/05/20 Sapovirus I/II/IV/V (PCR) - Final, Complete 05/03/20 Viral Culture, Received Pending 05/02/20 Blood Culture - Final, Complete NO GROWTH AFTER 5 DAYS 05/02/20 Blood Culture - Final, Complete NO GROWTH AFTER 5 DAYS Allergies Coded Allergies: ibuprofen (Verified Allergy, Severe, TROUBLE BREATHING, 04/04/19) strawberry (Verified Allergy, Severe, THROAT SWELLING, 04/04/19) Home Medications Scheduled Aspirin (Aspirin EC) 81 Mg Tablet.dr, 81 MG PO DAILY, (Reported) Atorvastatin Calcium (Atorvastatin Calcium) 80 Mg Tab, 80 MG PO DAILY, (Reported) Empagliflozin (Jardiance) 10 Mg Tablet, 10 MG PO DAILY, (Reported) Furosemide (Furosemide) 40 Mg Tablet, 40 MG PO DAILY, (Reported) Gabapentin (Gabapentin) 300 Mg Capsule, 300 MG PO QID, (Reported) Glipizide (Glipizide) 5 Mg Tablet, 5 MG PO DAILY, (Reported) Lisinopril (Lisinopril) 10 Mg Tablet, 10 MG PO BID, (Reported) Metformin HCl (Metformin HCl) 1,000 Mg Tablet, 1,000 MG PO BID, (Reported) Tamsulosin Hcl (Tamsulosin HCl) 0.4 Mg Capsule, 0.4 MG PO DAILY, (Reported) Scheduled PRN Ketoconazole (Ketoconazole) 120 Ml Shampoo, 1 DOSE TOP DAILY PRN for INFLAMED SKIN, (Reported) APPLY TO SCALP AND AQUINO Tramadol HCl (Tramadol HCl) 50 Mg Tablet, 50 MG PO DAILY PRN for PAIN, (Reported) TASHI CASILLAS D.O. May 10, 2020 13:39 EDMOND SETHI MD May 17, 2020 12:17
[2020-05-10 16:00] VITALS: BP 137/83
[2020-05-10 20:00] VITALS: BP 150/68
--- NOTE | 2020-05-10 22:52 | ECGEPIP ---
[facility] Test Date: 2020-05-08 Pat Name: JORDAN MCKEON Department: Room: A6921-70 Gender: Male Mud Engineer: JOSELYN : 1950 Requested By: PALLAVI Martin Order Number: [id number] Reading MD: Juventino Aguilar Measurements Intervals [place] Rate: 73 P: 46 NE: 131 QRS: 55 QRSD: 94 T: 49 QT: 393 QTc: 433 Interpretive Statements SINUS RHYTHM WITH SINUS ARRHYTHMIA Decreased heart rate compared with 05/02/2020. Electronically Signed on 05-10-2020 22:52:52 EDT by Juventino Aguilar
[2020-05-11] VITALS: BP 152/68
[2020-05-11] MEDS: PIPERACILLIN/TAZOBACTAM SOD 4.5 GM in D5W MINI-BAG PLUS 50 ML IV SCH ×5 (01:26→23:38)
[2020-05-11] MEDS: VANCOMYCIN ORAL SOL 250MG/5ML ORAL SYRINGE PO SCH ×5 (06:00→23:38)
[2020-05-11] MEDS: SODIUM CHLORIDE 0.9% INJ 10 ML SYR IV SCH ×3 (06:24→20:03)
[2020-05-11 06:34] LABS: HEMATOCRIT 28.4 % (42.0-52.0); HEMOGLOBIN 9.1 g/dl (13.5-17.5); MEAN CORPUSCULAR HEMOGLOBIN 27.5 pg (27.0-33.0); MEAN CORPUSCULAR VOLUME 85.8 fl (80.0-96.0); PLATELET COUNT, AUTOMATED 412 10^3/uL (150-450); RED BLOOD COUNT 3.31 10^6/uL (4.30-6.10); WHITE BLOOD COUNT 10.2 10^3/uL (4.0-10.0)
[2020-05-11 07:02] LABS: ALBUMIN 1.7 GM/DL (3.2-5.2); ALT/SGPT 43 U/L (12-78); BILIRUBIN,TOTAL 0.4 MG/DL (0.2-1.0); BLOOD UREA NITROGEN 6 MG/DL (7-18); CARBON DIOXIDE LEVEL 24 MEQ/L (21-32); CHLORIDE LEVEL 111 MEQ/L (98-107); CREATININE FOR GFR 0.62 MG/DL (0.70-1.30); GLOMERULAR FILTRATION RATE > 60.0 (>49); GLUCOSE, FASTING 142 MG/DL (70-100); POTASSIUM SERUM 4.2 MEQ/L (3.5-5.1); SODIUM LEVEL 142 MEQ/L (136-145); TOTAL PROTEIN 5.4 GM/DL (6.4-8.2)
[2020-05-11 08:00] VITALS: BP 160/76
[2020-05-11] MEDS: HumaLOG INSULIN (NovoLOG) PER UNIT SC SCH ×4 (08:54→20:03)
[2020-05-11] MEDS: ASPIRIN 81 MG ENTERIC TAB PO SCH (08:54)
[2020-05-11] MEDS: GABAPENTIN 300 MG CAP PO SCH ×4 (08:54→20:38)
[2020-05-11] MEDS: amLODIPine 5 MG TAB PO SCH (08:55)
[2020-05-11] MEDS: ATORVASTATIN 20 MG TAB PO SCH (08:55)
[2020-05-11] MEDS: POTASSIUM CHLORIDE 10 MEQ SR TABLET PO SCH (08:58)
[2020-05-11] MEDS: TAMSULOSIN 0.4 MG CAP PO SCH (08:58)
[2020-05-11] MEDS: VANICREAM MOISTURIZING SKIN CREAM 113GM TUBE TOP SCH ×2 (08:59→20:03)
[2020-05-11] MEDS: HEPARIN SOD (PORCINE) 5000UNITS/ML 1ML VIAL/SYRINGE SC SCH ×2 (08:59→20:03)
[2020-05-11] MEDS: DOCUSATE SODIUM 100 MG CAP PO SCH ×2 (08:59→19:15)
[2020-05-11] MEDS: KCL 40MEQ in NS 1000ML 1,000 ML IV SCH (15:22)
[2020-05-11] MEDS ORDERED: ISOVUE-300 61% 50ML VIAL As Ordered ONE (15:48)
[2020-05-11] MEDS ORDERED: ONDANSETRON 4MG/2ML VIAL As Ordered ONE (15:59)
[2020-05-11] MEDS ORDERED: LIDOCAINE 2% 100MG/5ML SDV (FOR ANES.) As Ordered ONE (15:59)
[2020-05-11] MEDS ORDERED: ROCURONIUM BROMIDE 50 MG/5 ML VIAL As Ordered ONE (15:59)
[2020-05-11] MEDS ORDERED: propofoL 200 MG/20 ML VIAL As Ordered ONE (15:59)
[2020-05-11] MEDS ORDERED: METOCLOPRAMIDE INJ 10MG/2ML VIAL (J2765 PER 1) As Ordered ONE (15:59)
[2020-05-11 16:00] VITALS: BP 173/78
[2020-05-11] MEDS ORDERED: MIDAZOLAM INJ 2MG/2ML VIAL (J2250 PER 1MG) As Ordered ONE (16:00)
[2020-05-11] MEDS ORDERED: fentaNYL 100 MCG/2 ML INJECTION (J3010) As Ordered ONE (16:00)
[2020-05-11] MEDS ORDERED: SUGAMMADEX SODIUM 500 MG/5 ML VIAL (BRIDION) As Ordered ONE (18:02)
[2020-05-11] MEDS ORDERED: LABETALOL 100MG/20ML VIAL As Ordered ONE (18:03)
[2020-05-11] MEDS ORDERED: oxyCODONE 5MG TAB PO PRN (18:30)
[2020-05-11] MEDS ORDERED: ONDANSETRON 4MG/2ML VIAL IV PRN (18:30)
[2020-05-11] MEDS ORDERED: fentaNYL 100 MCG/2 ML INJECTION (J3010) IV PRN (18:30)
[2020-05-11] MEDS ORDERED: LR 1,000 ML IV SCH (18:30)
--- NOTE | 2020-05-11 18:30 | IPNPDOC ---
Text Note Date of Service The patient was seen on 05/11/20. NOTE Hospitalist Progress Note Subjective: The patient continues to complain of abdominal pain, although he admits that it is better today than it had been previously. His major complaint this morning is that of hunger. He is nothing by mouth for his EGD that is scheduled for later today. Otherwise, he does not have any additional acute complaints at this time. The remainder of his review of systems is negative. Objective: General: Awake, alert, oriented 3. Not in any acute distress. HEENT: Head normocephalic, atraumatic, sclera are nonicteric. Hearing is grossly intact to conversation. Respiratory: Clear to auscultation bilaterally with no wheezes, rales, or rhonchi. Cardiovascular: Regular rate and rhythm, with no rubs, gallops, or murmur. Abdomen: Generalized tenderness throughout, however he does have more exquisite pain upon palpation of the right upper quadrant. No guarding or rigidity. Extremities: 2+ pulses in the radial and dorsalis pedis bilaterally. No evidence of clubbing or cyanosis. Assessment/Plan: -Acute cholecystitis with choledocholithiasis Appreciate gastroenterology's willingness to perform ERCP. This is scheduled for this afternoon. Patient is nothing by mouth today. -Status post septic shock now resolved -C. difficile diarrhea PO vancomycin -Chronic anemia Stable -Status post right AKA -Left leg weakness Will work with physical therapy after acute issues regarding abdominal pain are resolved -Acute renal injury Now resolved -Hypokalemia Replaced -Peripheral vascular disease Continue aspirin and atorvastatin -Diabetes mellitus with peripheral neuropathy Sliding scale insulin, long-acting insulin, gabapentin, tramadol when necessary -Stage II sacral decubiti Present on admission, patient refusing it returned, and diarrhea is making matters worse, and patient refuses cleaning -Rash on back Suspected to be eczematous dermatitis, triamcinolone cream twice a day -History of 3 strokes, the first one being at age 47 Continue aspirin and statin -PTSD Olanzapine as needed for anxiety/agitation -BPH Continue Flomax -DVT prophylaxis Heparin VS,Fishbone, I+O VS, Fishbone, I+O Laboratory Tests 05/11/20 06:15 Vital Signs Date Time Temp Pulse Resp B/P (MAP) Pulse Ox O2 Delivery O2 Flow Rate FiO2 05/11/20 16:00 98.0 66 20 173/78 (109) 94 05/11/20 08:00 Room Air 05/08/20 08:00 1.0 I&O- Last 24 Hours up to 6 AM 05/11/20 06:00 Intake Total 1220 ml Output Total 2800 ml Balance -1580 ml ELVIRA WHEELER DO May 11, 2020 18:29
--- NOTE | 2020-05-11 18:31 | REP ---
INDICATION: COMMON BILE DUCT STONE. COMPARISON: Comparison CT study May 06, 2020.. TECHNIQUE: Thirty-seven views. 29 seconds of fluoroscopy time is reported. FINDINGS: A sequence of 37 fluoroscopically obtained intraprocedural spot radiographs of the right upper abdomen taken during and os could be an ERCP study demonstrate an endoscopic Ca cannulation, contrast injection, balloon catheter manipulation, and stent positioning in the common bile duct. IMPRESSION: ERCP. <Electronically signed by Rodger Chavez > 05/11/20 [id number]
--- NOTE | 2020-05-11 18:35 | ROOR ---
Patient Name: Yong Khoury Procedure Date: 05/11/2020 4:16 PM Date of : 1950 Age: 69 Room: Main OR Gender: Male Note Status: Finalized Procedure: ERCP Indications: Bile duct stone(s), Suspected ascending cholangitis Providers: Leonardo Savage MD Referring MD: 2. Inpatient 2. Inpatient, Elizabeth Carbone NP Requesting Provider: Medicines: Monitored Anesthesia Care Complications: No immediate complications. Procedure: Pre-Anesthesia Assessment: - Prior to the procedure, a History and Physical was performed, and patient medications and allergies were reviewed. The patient is competent. The risks and benefits of the procedure and the sedation options and risks were discussed with the patient. All questions were answered and informed consent was obtained. Patient identification and proposed procedure were verified by the physician, the nurse and the anesthesiologist in the procedure room. Mental Status Examination: alert and oriented. Airway Examination: normal oropharyngeal airway and neck mobility. Respiratory Examination: clear to auscultation. CV Examination: normal. Prophylactic Antibiotics: The patient does not require prophylactic antibiotics. Prior Anticoagulants: The patient has taken no previous anticoagulant or antiplatelet agents. ASA Grade Assessment: III - A patient with severe systemic disease. After reviewing the risks and benefits, the patient was deemed in satisfactory condition to undergo the procedure. The anesthesia plan was to use monitored anesthesia care (MAC). Immediately prior to administration of medications, the patient was re-assessed for adequacy to receive sedatives. The heart rate, respiratory rate, oxygen saturations, blood pressure, adequacy of pulmonary ventilation, and response to care were monitored throughout the procedure. The physical status of the patient was re-assessed after the procedure. The Duodenoscope was introduced through the mouth, and advanced to the duodenum and used to inject contrast into the bile duct. The ERCP was accomplished without difficulty. The patient tolerated the procedure well. 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 The esophagus was successfully intubated under direct vision. Examination of the pharynx, larynx and associated structures was normal. The scope was passed under direct vision through the upper GI tract. Patchy severe inflammation characterized by congestion (edema), erythema and granularity was found in the duodenal bulb, in the second portion of the duodenum and in the third portion of the duodenum. A 10 mm non-bleeding diverticulum was found in the area of the papilla. Patchy moderate inflammation characterized by congestion (edema), erosions and granularity was found in the gastric antrum. LA Grade C (one or more mucosal breaks continuous between tops of 2 or more mucosal folds, less than 75% circumference) esophagitis with no bleeding was found in the distal esophagus. The major papilla was located partially within a diverticulum. A 0.035 inch x 260 cm straight Hydra Jagwire was passed into the biliary tree. The short-nosed traction sphincterotome was passed over the guidewire and the bile duct was then deeply cannulated. Contrast was injected. I personally interpreted the bile duct images. Ductal flow of contrast was adequate. Image quality was adequate. Contrast extended to the main bile duct. Contrast extended to the hepatic ducts. The lower third of the main bile duct and middle third of the main bile duct contained filling defect(s) thought to be a stone. The main bile duct was diffusely dilated, acquired. The largest diameter was 12 mm. A very careful, limited biliary sphincterotomy was made with a monofilament traction (standard) sphincterotome using ERBE electrocautery. There was no post-sphincterotomy bleeding. The biliary tree was swept with a 12 mm balloon starting at the bifurcation. Pus was swept from the duct. Sludge was swept from the duct. One 10 Fr by 7 cm plastic stent with a single external flap and a single internal flap was placed into the common bile duct. Pus flowed through the stent. The stent was in good position. Occlusion cholangiogram at the end of the procedure did not show any residual filling defects. Pancreatic duct was neither cannulated nor opacified. Impression: - Duodenitis. - Non-bleeding duodenal diverticulum. - Gastritis. - LA Grade C reflux esophagitis. - The major papilla was located partially within a diverticulum. - A filling defect consistent with a stone was seen on the cholangiogram. - The entire main bile duct was dilated, acquired. - The examination was suspicious for choledocholithiasis. Partial removal was accomplished with biliary sphincterotomy; a stent was inserted. - A biliary sphincterotomy was performed. - The biliary tree was swept and pus and sludge were found. - One plastic stent was placed into the common bile duct. Recommendation: - Return patient to [facility] for ongoing care. - Patient has a contact number available for emergencies. The signs and symptoms of potential delayed complications were discussed with the patient. Return to normal activities tomorrow. Written discharge instructions were provided to the patient. - Clear liquid diet today, then advance as tolerated to high fiber diet. - Use broad spectrum antibiotics for 7 days. - Use Pepcid (famotidine) 20 mg PO daily for 6 weeks. - Continue present medications. - Observe patient's clinical course. - Continue treatment for C. difficile. Consider adding probiotics after completion of C. difficile therapy. - Repeat ERCP in 3 months to remove stent. - Refer to a surgeon for Cholecystectomy prior to Stent removal. - Return to GI clinic in 2 months. - Return to primary care physician. Leonardo Savage MD Leonardo Savage MD 05/11/2020 6:34:29 PM Electronically signed by Leonardo Savage MD Number of Addenda: 0 Note Initiated On: 05/11/2020 4:16 PM Estimated Blood Loss: Estimated blood loss was minimal.
[2020-05-11 19:13] VITALS: BP 167/67
[2020-05-11 20:00] VITALS: BP 150/58
[2020-05-11 21:00] VITALS: BP 160/75
[2020-05-12] VITALS: BP 162/74
[2020-05-12 04:00] VITALS: BP 170/68
[2020-05-12] MEDS: SODIUM CHLORIDE 0.9% INJ 10 ML SYR IV SCH ×3 (05:43→21:15)
[2020-05-12] MEDS: PIPERACILLIN/TAZOBACTAM SOD 4.5 GM in D5W MINI-BAG PLUS 50 ML IV SCH ×3 (05:43→18:01)
[2020-05-12] MEDS: VANCOMYCIN ORAL SOL 250MG/5ML ORAL SYRINGE PO SCH ×3 (05:43→17:39)
[2020-05-12 06:49] LABS: MEAN CORPUSCULAR HEMOGLOBIN 26.9 pg (27.0-33.0); MEAN CORPUSCULAR VOLUME 86.6 fl (80.0-96.0); PLATELET COUNT, AUTOMATED 405 10^3/uL (150-450); RED BLOOD COUNT 3.35 10^6/uL (4.30-6.10); WHITE BLOOD COUNT 10.2 10^3/uL (4.0-10.0)
[2020-05-12 06:55] LABS: ALBUMIN 1.8 GM/DL (3.2-5.2); ALT/SGPT 36 U/L (12-78); BILIRUBIN,TOTAL 0.4 MG/DL (0.2-1.0); BLOOD UREA NITROGEN 6 MG/DL (7-18); CARBON DIOXIDE LEVEL 24 MEQ/L (21-32); CHLORIDE LEVEL 108 MEQ/L (98-107); GLOMERULAR FILTRATION RATE > 60.0 (>49); GLUCOSE, FASTING 121 MG/DL (70-100); POTASSIUM SERUM 4.1 MEQ/L (3.5-5.1); SODIUM LEVEL 140 MEQ/L (136-145); TOTAL PROTEIN 5.6 GM/DL (6.4-8.2)
[2020-05-12] MEDS: HumaLOG INSULIN (NovoLOG) PER UNIT SC SCH ×4 (07:30→20:52)
[2020-05-12 07:52] VITALS: BP 144/66
[2020-05-12] MEDS: GABAPENTIN 300 MG CAP PO SCH ×4 (08:01→21:12)
[2020-05-12] MEDS: TAMSULOSIN 0.4 MG CAP PO SCH (08:02)
[2020-05-12] MEDS: ATORVASTATIN 20 MG TAB PO SCH (08:02)
[2020-05-12] MEDS: amLODIPine 5 MG TAB PO SCH (08:02)
[2020-05-12] MEDS: ASPIRIN 81 MG ENTERIC TAB PO SCH (08:02)
[2020-05-12] MEDS: POTASSIUM CHLORIDE 10 MEQ SR TABLET PO SCH (08:02)
[2020-05-12] MEDS: HEPARIN SOD (PORCINE) 5000UNITS/ML 1ML VIAL/SYRINGE SC SCH ×2 (08:03→21:00)
[2020-05-12] MEDS: VANICREAM MOISTURIZING SKIN CREAM 113GM TUBE TOP SCH ×2 (08:04→21:13)
[2020-05-12] MEDS: DOCUSATE SODIUM 100 MG CAP PO SCH ×2 (08:07→21:00)
--- NOTE | 2020-05-12 14:45 | IPNPDOC ---
Text Note Date of Service The patient was seen on 05/12/20. NOTE Hospitalist Progress Note Subjective: Patient is status post ERCP yesterday afternoon. He is feeling significantly better this morning. His abdominal pain is improved, he has even been able to eat some of his breakfast this morning with only mild/minimal discomfort. He does not have any acute complaints this morning, and the remainder of his review of systems is negative. Objective: General: Awake, alert, oriented 3. Not in any acute distress. HEENT: Head normocephalic, atraumatic, sclera are nonicteric. Hearing is grossly intact to conversation. Respiratory: Clear to auscultation bilaterally with no wheezes, rales, or rhonchi. Cardiovascular: Regular rate and rhythm, with no rubs, gallops, or murmur. Abdomen: Soft, minimally tender to deep palpation, nondistended, no hepatosplenomegaly appreciated. Bowel sounds present. Extremities: Status post right AKA. No evidence of clubbing or cyanosis. Assessment/Plan: Acute cholecystitis with choledocholithiasis -Status post ERCP yesterday afternoon. Apparently sludge and pus was present in the biliary duct time, and a filling defect would imply presence of stone as well. The stone apparently was not removed, but stent placed. Please see full operative report for further details. -Recommendation is to use broad-spectrum antibiotic for 7 additional days, he is currently on Zosyn empirically, we will continue this while inpatient, and switched to appropriate oral medication upon discharge. -Pepcid 20 mg by mouth daily for 6 weeks also recommended. -Patient will need cholecystectomy prior to stent removal, surgery had already been consulted earlier during this inpatient stay and they recommended 4-6 weeks after resolution of inflammation, therefore this will need to be scheduled as an outpatient. -Will need a repeat ERCP in 3 months to remove stent, will need outpatient fo llow-up in GI clinic in 2 months upon discharge. -We will now begin to advance his diet as tolerated Status post septic shock now resolved C. difficile diarrhea PO vancomycin Chronic anemia Stable Status post right AKA Left leg weakness Continue working with PT until safe for discharge Acute renal injury Now resolved Hypokalemia Replaced Peripheral vascular disease Continue aspirin and atorvastatin Diabetes mellitus with peripheral neuropathy Sliding scale insulin, long-acting insulin, gabapentin, tramadol when necessary Stage II sacral decubiti Present on admission, patient refusing it returned, and diarrhea is making matters worse, and patient refuses cleaning Rash on back Suspected to be eczematous dermatitis, triamcinolone cream twice a day History of 3 strokes, the first one being at age 47 Continue aspirin and statin PTSD Olanzapine as needed for anxiety/agitation BPH Continue Flomax DVT prophylaxis Heparin VS,Fishbone, I+O VS, Fishbone, I+O Laboratory Tests 05/12/20 06:18 Vital Signs Date Time Temp Pulse Resp B/P (MAP) Pulse Ox O2 Delivery O2 Flow Rate FiO2 05/12/20 08:02 70 144/66 05/12/20 07:52 97.8 18 94 Room Air 05/08/20 08:00 1.0 I&O- Last 24 Hours up to 6 AM 05/12/20 06:00 Intake Total 320 ml Output Total 3550 ml Balance -3230 ml ELVIRA WHEELER DO May 12, 2020 14:45
[2020-05-12] MEDS: FAMOTIDINE 20 MG TAB PO SCH (15:02)
[2020-05-12 16:00] VITALS: BP 164/72
[2020-05-12 20:00] VITALS: BP 152/56
[2020-05-13] MEDS: PIPERACILLIN/TAZOBACTAM SOD 4.5 GM in D5W MINI-BAG PLUS 50 ML IV SCH ×4 (00:48→18:04)
[2020-05-13] MEDS: VANCOMYCIN ORAL SOL 250MG/5ML ORAL SYRINGE PO SCH ×4 (00:49→17:00)
[2020-05-13 04:00] VITALS: BP 154/60
[2020-05-13] MEDS: SODIUM CHLORIDE 0.9% INJ 10 ML SYR IV SCH ×3 (06:25→21:25)
[2020-05-13 06:47] LABS: HEMATOCRIT 28.1 % (42.0-52.0); HEMOGLOBIN 8.8 g/dl (13.5-17.5); MEAN CORPUSCULAR HEMOGLOBIN 27.6 pg (27.0-33.0); MEAN CORPUSCULAR HGB CONC 31.3 g/dl (32.0-36.5); MEAN CORPUSCULAR VOLUME 88.1 fl (80.0-96.0); PLATELET COUNT, AUTOMATED 403 10^3/uL (150-450); RED BLOOD COUNT 3.19 10^6/uL (4.30-6.10); WHITE BLOOD COUNT 8.6 10^3/uL (4.0-10.0)
[2020-05-13 07:20] LABS: BLOOD UREA NITROGEN 6 MG/DL (7-18); CALCIUM LEVEL 8.4 MG/DL (8.8-10.2); CARBON DIOXIDE LEVEL 27 MEQ/L (21-32); CHLORIDE LEVEL 110 MEQ/L (98-107); CREATININE FOR GFR 0.99 MG/DL (0.70-1.30); GLOMERULAR FILTRATION RATE > 60.0 (>49); GLUCOSE, FASTING 161 MG/DL (70-100); POTASSIUM SERUM 3.8 MEQ/L (3.5-5.1); SODIUM LEVEL 141 MEQ/L (136-145)
[2020-05-13 07:36] VITALS: BP 154/67
[2020-05-13] MEDS: ATORVASTATIN 20 MG TAB PO SCH (08:00)
[2020-05-13] MEDS: ASPIRIN 81 MG ENTERIC TAB PO SCH (08:00)
[2020-05-13] MEDS: GABAPENTIN 300 MG CAP PO SCH ×4 (08:00→21:26)
[2020-05-13] MEDS: TAMSULOSIN 0.4 MG CAP PO SCH (08:00)
[2020-05-13] MEDS: POTASSIUM CHLORIDE 10 MEQ SR TABLET PO SCH (08:00)
[2020-05-13] MEDS: FAMOTIDINE 20 MG TAB PO SCH (08:00)
[2020-05-13] MEDS: DOCUSATE SODIUM 100 MG CAP PO SCH ×2 (08:01→21:00)
[2020-05-13] MEDS: HumaLOG INSULIN (NovoLOG) PER UNIT SC SCH ×4 (08:01→21:00)
[2020-05-13] MEDS: HEPARIN SOD (PORCINE) 5000UNITS/ML 1ML VIAL/SYRINGE SC SCH ×2 (08:02→21:00)
[2020-05-13] MEDS: VANICREAM MOISTURIZING SKIN CREAM 113GM TUBE TOP SCH ×2 (08:02→21:27)
[2020-05-13] MEDS: amLODIPine 10 MG TAB PO SCH (08:20)
[2020-05-13 16:00] VITALS: BP 133/60
--- NOTE | 2020-05-13 16:07 | IPNPDOC ---
Text Note Date of Service The patient was seen on 05/13/20. NOTE Hospitalist Progress Note Subjective: The patient is feeling much better today. He was able to tolerate his breakfast which consisted of oatmeal without any pain at all. His abdominal pain is also essentially resolved. He is ready and willing to work with physical therapy. Otherwise, the remainder of his review of systems is negative. Objective: General: Awake, alert, oriented 3. Not in any acute distress. HEENT: Head normocephalic, atraumatic, sclera are nonicteric. Hearing is grossly intact to conversation. Respiratory: Clear to auscultation bilaterally with no wheezes, rales, or rhonchi. Cardiovascular: Regular rate and rhythm, with no rubs, gallops, or murmur. Abdomen: Soft, nontender, nondistended, no hepatosplenomegaly appreciated. Bowel sounds present. Extremities: Status post right AKA. No evidence of clubbing or cyanosis. Assessment: Acute cholecystitis with choledocholithiasis -Status post ERCP stent placed. Please see full operative report for further details. -Recommendation is to use broad-spectrum antibiotic for 7 additional days after ERCP (until 05/18/2020) he is currently on Zosyn empirically, we will continue t his while inpatient, and switch to appropriate oral medication upon discharge. -Pepcid 20 mg by mouth daily for 6 weeks also recommended. -Patient will need cholecystectomy prior to stent removal, surgery had already been consulted earlier during this inpatient stay and they recommended 4-6 weeks after resolution of inflammation (presumably after ERCP 05/11/2020), therefore this will need to be scheduled as an outpatient. -Will need a repeat ERCP in 3 months to remove stent, will need outpatient follow-up in GI clinic in 2 months upon discharge. -Continue to advance diet as tolerated Status post septic shock -now resolved C. difficile diarrhea -PO vancomycin 250 mg every 6 hours to be taken for a total of 10 days, started on 05/09/2020, stop on 05/19/2020 Chronic anemia -Stable Status post right AKA Left leg weakness -Continue working with PT until safe for discharge Acute renal injury -Now resolved Hypokalemia -Replaced Peripheral vascular disease -Continue aspirin and atorvastatin Diabetes mellitus with peripheral neuropathy -Sliding scale insulin, long-acting insulin, gabapentin, tramadol when necessary Stage II sacral decubiti -Present on admission, patient refusing it returned, and diarrhea is making matters worse, and patient refuses cleaning Rash on back -Suspected to be eczematous dermatitis, triamcinolone cream twice a day History of 3 strokes, the first one being at age 47 -Continue aspirin and statin PTSD -Olanzapine as needed for anxiety/agitation BPH - Continue Flomax - Miller catheter removed today, will use condom catheter. HTN -Pressures have been elevated, therefore dose of amlodipine increased to 10 mg DVT prophylaxis -Heparin VS,Fishbone, I+O VS, Fishbone, I+O Laboratory Tests 05/13/20 05:15 Vital Signs Date Time Temp Pulse Resp B/P (MAP) Pulse Ox O2 Delivery O2 Flow Rate FiO2 05/13/20 08:20 65 154/67 05/13/20 07:36 97.8 18 95 Room Air 05/08/20 08:00 1.0 I&O- Last 24 Hours up to 6 AM 05/13/20 06:00 Intake Total 1180 ml Output Total 2600 ml Balance -1420 ml ELVIRA WHEELER DO May 13, 2020 16:07
[2020-05-13 20:00] VITALS: BP 131/76
[2020-05-14] VITALS: BP 130/81
[2020-05-14] MEDS: VANCOMYCIN ORAL SOL 250MG/5ML ORAL SYRINGE PO SCH ×5 (00:28→23:23)
[2020-05-14] MEDS: PIPERACILLIN/TAZOBACTAM SOD 4.5 GM in D5W MINI-BAG PLUS 50 ML IV SCH ×2 (00:28→06:19)
[2020-05-14 04:00] VITALS: BP 156/75
[2020-05-14] MEDS: SODIUM CHLORIDE 0.9% INJ 10 ML SYR IV SCH ×3 (06:20→21:32)
[2020-05-14 06:47] LABS: BASO # 0.1 10^3/uL (0.0-0.2); BASO % 0.9 % (0.0-1.0); EOS # 0.3 10^3/uL (0.0-0.5); HEMATOCRIT 29.8 % (42.0-52.0); HEMOGLOBIN 9.3 g/dl (13.5-17.5); LYMPH # 1.3 10^3/uL (1.5-5.0); LYMPH % 15.9 % (24.0-44.0); MEAN CORPUSCULAR HEMOGLOBIN 27.2 pg (27.0-33.0); MEAN CORPUSCULAR HGB CONC 31.2 g/dl (32.0-36.5); MEAN CORPUSCULAR VOLUME 87.1 fl (80.0-96.0); MONO # 0.9 10^3/uL (0.0-0.8); MONO % 11.5 % (0.0-5.0); NEUTROPHILS # 5.4 10^3/uL (1.5-8.5); NEUTROPHILS % 66.6 % (36.0-66.0); PLATELET COUNT, AUTOMATED 417 10^3/uL (150-450); RED BLOOD COUNT 3.42 10^6/uL (4.30-6.10); WHITE BLOOD COUNT 8.1 10^3/uL (4.0-10.0)
[2020-05-14 08:00] VITALS: BP 168/62
[2020-05-14] MEDS: DOCUSATE SODIUM 100 MG CAP PO SCH ×2 (09:00→21:00)
[2020-05-14] MEDS: HEPARIN SOD (PORCINE) 5000UNITS/ML 1ML VIAL/SYRINGE SC SCH ×2 (09:00→21:32)
[2020-05-14] MEDS: VANICREAM MOISTURIZING SKIN CREAM 113GM TUBE TOP SCH ×2 (10:37→21:40)
[2020-05-14] MEDS: HumaLOG INSULIN (NovoLOG) PER UNIT SC SCH ×4 (10:38→21:00)
[2020-05-14] MEDS: FAMOTIDINE 20 MG TAB PO SCH (10:38)
[2020-05-14] MEDS: GABAPENTIN 300 MG CAP PO SCH ×4 (10:38→21:32)
[2020-05-14] MEDS: ATORVASTATIN 20 MG TAB PO SCH (10:38)
[2020-05-14] MEDS: POTASSIUM CHLORIDE 10 MEQ SR TABLET PO SCH (10:39)
[2020-05-14] MEDS: TAMSULOSIN 0.4 MG CAP PO SCH (10:39)
[2020-05-14] MEDS: ASPIRIN 81 MG ENTERIC TAB PO SCH (10:39)
[2020-05-14] MEDS: amLODIPine 10 MG TAB PO SCH (10:40)
[2020-05-14] MEDS: metroNIDAZOLE (FLAGYL) 500MG TABLET PO SCH ×3 (12:28→23:23)
[2020-05-14 16:00] VITALS: BP 145/66
[2020-05-14] MEDS: CIPROFLOXACIN 500MG TABLET PO SCH (17:34)
--- NOTE | 2020-05-14 19:07 | IPNPDOC ---
Text Note Date of Service The patient was seen on 05/14/20. NOTE Hospitalist Progress Note Subjective: Patient is sitting upright in bed eating his breakfast. He does not have any abdominal pain at this time, and states that he has been able to tolerate his meals quite well. Nursing has been advancing him appropriately. He does not have any acute complaints at this time. Remainder the review of systems is negative. Objective: General: Awake, alert, oriented 3. Not in any acute distress. HEENT: Head normocephalic, atraumatic, sclera are nonicteric. Hearing is grossly intact to conversation. Respiratory: Clear to auscultation bilaterally with no wheezes, rales, or rhonchi. Cardiovascular: Regular rate and rhythm, with no rubs, gallops, or murmur. Abdomen: Soft, nontender, nondistended, no hepatosplenomegaly appreciated. Bowel sounds present. Extremities: Status post right AKA. No evidence of clubbing or cyanosis. Dorsalis pedis on the left is palpable. Assessment/Plan: Acute cholecystitis with choledocholithiasis -Status post ERCP 05/11/20, stent placed. Please see full operative report for further details. -Recommendation is to use broad-spectrum antibiotic for 7 additional days after ERCP (until 05/18/2020) - d/c Zosyn, continue with PO Cipro/Flagyl -Pepcid 20 mg by mouth daily for 6 weeks also recommended. -Patient will need cholecystectomy prior to stent removal, surgery had already b een consulted earlier during this inpatient stay and they recommended 4-6 weeks after resolution of inflammation (presumably after ERCP 05/11/2020), therefore this will need to be scheduled as an outpatient (Mid June). -Will need a repeat ERCP in 3 months (End of July 2020) to remove stent, will need outpatient follow-up in GI clinic in 2 months (End of June 2020) upon discharge. -Continue to advance diet as tolerated Status post septic shock -now resolved C. difficile diarrhea -PO vancomycin 250 mg every 6 hours to be taken for a total of 10 days, started on 05/09/2020, stop on 05/19/2020 Chronic anemia -Stable Status post right AKA Left leg weakness -Continue working with PT until safe for discharge. May need to go to rehab unit or home with rehab. PT input is greatly appreciated. Acute renal injury -Now resolved Hypokalemia -Resolved Peripheral vascular disease -Continue aspirin and atorvastatin Diabetes mellitus with peripheral neuropathy -Sliding scale insulin, long-acting insulin, gabapentin, tramadol as needed Stage II sacral decubiti -Present on admission, patient refusing it returned, and diarrhea is making matters worse, and patient refuses cleaning Rash on back -Suspected to be eczematous dermatitis, triamcinolone cream twice a day History of 3 strokes, the first one being at age 47 -Continue aspirin and statin PTSD -Olanzapine as needed for anxiety/agitation BPH - Continue Flomax - Miller catheter removed today, will use condom catheter. HTN -Pressures have been elevated, therefore dose of amlodipine increased to 10 mg DVT prophylaxis -Heparin VS,Fishbone, I+O VS, Fishbone, I+O Laboratory Tests 05/14/20 03:56 Vital Signs Date Time Temp Pulse Resp B/P (MAP) Pulse Ox O2 Delivery O2 Flow Rate FiO2 05/14/20 16:00 98.4 63 18 145/66 (92) 94 Room Air 05/08/20 08:00 1.0 l I&O- Last 24 Hours up to 6 AM 05/14/20 06:00 Intake Total 998 ml Output Total 1750 ml Balance -752 ml ELVIRA WHEELER DO May 14, 2020 19:07
[2020-05-14 20:00] VITALS: BP 134/62
[2020-05-15 04:00] VITALS: BP 141/65
[2020-05-15] MEDS: SODIUM CHLORIDE 0.9% INJ 10 ML SYR IV SCH ×2 (05:29→14:00)
[2020-05-15] MEDS: VANCOMYCIN ORAL SOL 250MG/5ML ORAL SYRINGE PO SCH ×4 (05:29→23:35)
[2020-05-15] MEDS: metroNIDAZOLE (FLAGYL) 500MG TABLET PO SCH ×4 (05:29→23:35)
[2020-05-15] MEDS: CIPROFLOXACIN 500MG TABLET PO SCH ×2 (05:29→17:40)
[2020-05-15 05:54] LABS: HEMATOCRIT 30.7 % (42.0-52.0); HEMOGLOBIN 9.7 g/dl (13.5-17.5); MEAN CORPUSCULAR HEMOGLOBIN 27.6 pg (27.0-33.0); MEAN CORPUSCULAR HGB CONC 31.6 g/dl (32.0-36.5); MEAN CORPUSCULAR VOLUME 87.2 fl (80.0-96.0); PLATELET COUNT, AUTOMATED 452 10^3/uL (150-450); RED BLOOD COUNT 3.52 10^6/uL (4.30-6.10); WHITE BLOOD COUNT 7.4 10^3/uL (4.0-10.0)
[2020-05-15 06:16] LABS: BLOOD UREA NITROGEN 7 MG/DL (7-18); CALCIUM LEVEL 9.1 MG/DL (8.8-10.2); CARBON DIOXIDE LEVEL 26 MEQ/L (21-32); CHLORIDE LEVEL 109 MEQ/L (98-107); CREATININE FOR GFR 0.91 MG/DL (0.70-1.30); GLOMERULAR FILTRATION RATE > 60.0 (>49); GLUCOSE, FASTING 124 MG/DL (70-100); POTASSIUM SERUM 3.5 MEQ/L (3.5-5.1); SODIUM LEVEL 140 MEQ/L (136-145)
[2020-05-15 08:00] VITALS: BP 152/74
[2020-05-15] MEDS: HumaLOG INSULIN (NovoLOG) PER UNIT SC SCH ×4 (08:28→21:00)
[2020-05-15] MEDS: HEPARIN SOD (PORCINE) 5000UNITS/ML 1ML VIAL/SYRINGE SC SCH ×2 (08:28→21:20)
[2020-05-15] MEDS: amLODIPine 10 MG TAB PO SCH (08:29)
[2020-05-15] MEDS: GABAPENTIN 300 MG CAP PO SCH ×4 (08:29→21:18)
[2020-05-15] MEDS: ASPIRIN 81 MG ENTERIC TAB PO SCH (08:29)
[2020-05-15] MEDS: TAMSULOSIN 0.4 MG CAP PO SCH (08:29)
[2020-05-15] MEDS: FAMOTIDINE 20 MG TAB PO SCH (08:29)
[2020-05-15] MEDS: ATORVASTATIN 20 MG TAB PO SCH (08:29)
[2020-05-15] MEDS: POTASSIUM CHLORIDE 10 MEQ SR TABLET PO SCH (08:30)
[2020-05-15] MEDS: DOCUSATE SODIUM 100 MG CAP PO SCH ×2 (08:30→21:00)
[2020-05-15] MEDS: VANICREAM MOISTURIZING SKIN CREAM 113GM TUBE TOP SCH ×2 (08:30→21:21)
--- NOTE | 2020-05-15 13:13 | IPNPDOC ---
Subjective Date Seen The patient was seen on 05/15/20. Subjective Chief Complaint/HPI Mr. Khoury is a 69-year-old male with peripheral vascular disease and right BKA who comes to [facility] for left leg weakness and found to have septic shock secondary to acute cholecystitis. During his hospitalization, he developed choledocholithiasis and GI performed ERCP on 05/11/2020. Today, he was seen in bed. He had already finished breakfast. Denies abdominal pain or nausea. Also denies fever/chills, chest pain, dyspnea, or dysuria. Objective Physical Examination General Exam: Positive: Alert, Cooperative, No Acute Distress Eye Exam: Positive: Conjunctiva & lids normal, EOMI; Negative: Sclera icteric ENT Exam: Positive: Atraumatic, Mucous membr. moist/pink, Pharynx Normal Neck Exam: Positive: Supple; Negative: JVD Chest Exam: Positive: Clear to auscultation, Rales (crackles at the bases), Diminished (jeferson the bases) Heart Exam: Positive: Rate Normal, Regular Rhythm, Normal S1, Normal S2; Negative: Murmurs, Rubs Abdomen Exam: Positive: Normal bowel sounds, Tenderness (right upper quadrant with mild guarding.), Other (No rebound or rigidity); Negative: Soft Extremity Exam: Positive: Other (right AKA) Neuro Exam: Positive: Normal Speech, Strength at 5/5 X4 ext, Normal Tone, Cranial Nerves 3-12 NL Psych Exam: Negative: Memory Intact Assessment /Plan Assessment Mr. Khoury is a 69-year-old male with peripheral vascular disease and right BKA who comes to [facility] for left leg weakness and found to have septic shock secondary to acute cholecystitis. During his hospitalization, he developed choledocholithiasis and GI performed ERCP on 05/11/2020. He will need to be on broad spectrum antibiotics until 05/18/2020 which can be taken orally. He will also need to take PO vancomycin for C.diff diarrhea until 05/19/2020. Physical therapy has worked with him and he will need continued rehab. Pending placement Plan/VTE VTE Prophylaxis Ordered?: Yes Plan 1. Acute cholecystitis with choledocholithiasis -Status post ERCP 05/11/20, stent placed. Please see full operative report for further details. -Recommendation is to use broad-spectrum antibiotic for 7 additional days after ERCP (until 05/18/2020) -Continue with PO Cipro/Flagyl -Pepcid 20 mg by mouth daily for 6 weeks also recommended. -Patient will need cholecystectomy prior to stent removal, surgery had already been consulted earlier during this inpatient stay and they recommended 4-6 weeks after resolution of inflammation (presumably after ERCP 05/11/2020), therefore this will need to be scheduled as an outpatient (Mid June). -Will need a repeat ERCP in 3 months (End of July 2020) to remove stent, will need outpatient follow-up in GI clinic in 2 months (End of June 2020) upon discharge. -Continue to advance diet as tolerated 2. Status post septic shock -now resolved 3. C. difficile diarrhea -PO vancomycin 250 mg every 6 hours to be taken for a total of 10 days, started on 05/09/2020, stop on 05/19/2020 4. Chronic anemia -Stable 5. Status post right AKA -On admission, had left leg weakness which may have been secondary to sepsis -Continue working with PT until safe for discharge. May need to go to rehab unit or home with rehab. PT input is greatly appreciated. 6. Acute renal injury -Now resolved 7. Hypokalemia -Resolved 8. Peripheral vascular disease -Continue aspirin and atorvastatin 9. Diabetes mellitus with peripheral neuropathy -Sliding scale insulin, long-acting insulin, gabapentin, tramadol as needed 10. Stage II sacral decubiti -Present on admission, patient refusing it returned, and diarrhea is making matters worse, and patient refuses cleaning 11. Rash on back -Suspected to be eczematous dermatitis, triamcinolone cream twice a day 12. History of 3 strokes, the first one being at age 47 -Continue aspirin and statin 13. PTSD -Olanzapine as needed for anxiety/agitation 14. BPH - Continue Flomax - Miller catheter removed today, will use condom catheter. 15. HTN -Pressures have been elevated, therefore dose of amlodipine increased to 10 mg 16. DVT prophylaxis -Heparin Disposition: Continue PO broad spectrum antibiotics until 05/18 and PO vanco until 05/19. Will need physical therapy on discharge. Pending placement VS, I&O, 24H, Fishbone Vital Signs/I&O Vital Signs Date Time Temp Pulse Resp B/P (MAP) Pulse Ox O2 Delivery O2 Flow Rate FiO2 05/15/20 08:29 56 141/65 05/15/20 08:00 97.6 17 97 Room Air I&O- Last 24 Hours up to 6 AM 05/15/20 06:00 Intake Total 840 ml Output Total 2100 ml Balance -1260 ml Laboratory Data 24H LABS Laboratory Tests 2 05/14/20 16:52: Bedside Glucose (Misc Panel) 150H 05/14/20 21:12: Bedside Glucose (Misc Panel) 183H 05/15/20 05:39: Anion Gap 5L, Glomerular Filtration Rate > 60.0, Calcium Level 9.1 05/15/20 05:40: Nucleated Red Blood Cells % (auto) 0.0 05/15/20 12:11: Bedside Glucose (Misc Panel) 172H CBC/BMP Laboratory Tests 05/15/20 05:39 05/15/20 05:40 Microbiology Microbiology 05/05/20 Campylobacter (PCR) - Final, Complete 05/05/20 Clostridium difficile Toxin A&B PCR - Final, Complete 05/05/20 Plesiomonas shigelloides (PCR) - Final, Complete 05/05/20 Salmonella (PCR)([place]) - Final, Complete 05/05/20 Vibrio Species (PCR) - Final, Complete 05/05/20 Vibrio Cholerae (PCR) - Final, Complete 05/05/20 Yersinia enterocolitica (PCR) - Final, Complete 05/05/20 Enteroaggregative E. coli (PCR) - Final, Complete 05/05/20 Enteropathogenic E. coli (PCR) - Final, Complete 05/05/20 Enterotoxigenic E. coli (PCR) - Final, Complete 05/05/20 E. coli Shiga-like Toxin (PCR) - Final, Complete 05/05/20 Escherichia coli 0157 (PCR) - Final, Complete 05/05/20 Enteroinvasive E. coli/Shigella PCR - Final, Complete 05/05/20 Cryptosporidium (PCR) - Final, Complete 05/05/20 Cyclospora cayetanensis (PCR) - Final, Complete 05/05/20 Entamoeba histolytica (PCR) - Final, Complete 05/05/20 Giardia lamblia (PCR) - Final, Complete 05/05/20 Adenovirus Type F 40/41 (PCR) - Final, Complete 05/05/20 Astrovirus (PCR) - Final, Complete 05/05/20 Norovirus GI/GII (PCR) - Final, Complete 05/05/20 Rotavirus A (PCR) - Final, Complete 05/05/20 Sapovirus I/II/IV/V (PCR) - Final, Complete HERNAN POWELL DO May 15, 2020 13:13
[2020-05-15 14:30] VITALS: BP 139/49
[2020-05-15 22:00] VITALS: BP 139/52
[2020-05-16] MEDS: metroNIDAZOLE (FLAGYL) 500MG TABLET PO SCH ×4 (05:20→23:06)
[2020-05-16] MEDS: VANCOMYCIN ORAL SOL 250MG/5ML ORAL SYRINGE PO SCH ×4 (05:20→23:06)
[2020-05-16] MEDS: CIPROFLOXACIN 500MG TABLET PO SCH ×2 (05:20→17:55)
[2020-05-16 06:00] VITALS: BP 144/54
[2020-05-16 06:00] LABS: HEMATOCRIT 33.5 % (42.0-52.0); HEMOGLOBIN 10.7 g/dl (13.5-17.5); MEAN CORPUSCULAR HEMOGLOBIN 27.7 pg (27.0-33.0); MEAN CORPUSCULAR HGB CONC 31.9 g/dl (32.0-36.5); MEAN CORPUSCULAR VOLUME 86.8 fl (80.0-96.0); PLATELET COUNT, AUTOMATED 468 10^3/uL (150-450); RED BLOOD COUNT 3.86 10^6/uL (4.30-6.10); WHITE BLOOD COUNT 7.4 10^3/uL (4.0-10.0)
[2020-05-16 06:32] LABS: BLOOD UREA NITROGEN 8 MG/DL (7-18); CALCIUM LEVEL 9.3 MG/DL (8.8-10.2); CARBON DIOXIDE LEVEL 24 MEQ/L (21-32); CHLORIDE LEVEL 106 MEQ/L (98-107); CREATININE FOR GFR 0.93 MG/DL (0.70-1.30); GLOMERULAR FILTRATION RATE > 60.0 (>49); GLUCOSE, FASTING 132 MG/DL (70-100); POTASSIUM SERUM 3.7 MEQ/L (3.5-5.1); SODIUM LEVEL 137 MEQ/L (136-145)
[2020-05-16] MEDS: HumaLOG INSULIN (NovoLOG) PER UNIT SC SCH ×4 (08:19→23:09)
[2020-05-16] MEDS: HEPARIN SOD (PORCINE) 5000UNITS/ML 1ML VIAL/SYRINGE SC SCH ×2 (08:19→23:09)
[2020-05-16] MEDS: FAMOTIDINE 20 MG TAB PO SCH (08:20)
[2020-05-16] MEDS: ATORVASTATIN 20 MG TAB PO SCH (08:20)
[2020-05-16] MEDS: VANICREAM MOISTURIZING SKIN CREAM 113GM TUBE TOP SCH ×2 (08:20→23:09)
[2020-05-16] MEDS: POTASSIUM CHLORIDE 10 MEQ SR TABLET PO SCH (08:20)
[2020-05-16] MEDS: TAMSULOSIN 0.4 MG CAP PO SCH (08:21)
[2020-05-16] MEDS: amLODIPine 10 MG TAB PO SCH (08:21)
[2020-05-16] MEDS: ASPIRIN 81 MG ENTERIC TAB PO SCH (08:21)
[2020-05-16] MEDS: DOCUSATE SODIUM 100 MG CAP PO SCH ×2 (08:21→21:00)
[2020-05-16] MEDS: GABAPENTIN 300 MG CAP PO SCH ×4 (08:21→23:08)
[2020-05-16 14:00] VITALS: BP 140/52
--- NOTE | 2020-05-16 19:38 | IPNPDOC ---
Subjective Date Seen The patient was seen on 05/16/20. Subjective Chief Complaint/HPI Mr. Khoury is a 69-year-old male with peripheral vascular disease and right BKA who comes to [facility] for left leg weakness and found to have septic shock secondary to acute cholecystitis. During his hospitalization, he developed choledocholithiasis and GI performed ERCP on 05/11/2020. Today, he denies abdominal pain, nausea, fever/chills, chest pain, dyspnea, or dysuria. Objective Physical Examination General Exam: Positive: Alert, Cooperative, No Acute Distress Eye Exam: Positive: Conjunctiva & lids normal, EOMI; Negative: Sclera icteric ENT Exam: Positive: Atraumatic, Mucous membr. moist/pink, Pharynx Normal Neck Exam: Positive: Supple; Negative: JVD Chest Exam: Positive: Clear to auscultation, Rales (crackles at the bases), Diminished (jeferson the bases) Heart Exam: Positive: Rate Normal, Regular Rhythm, Normal S1, Normal S2; Negative: Murmurs, Rubs Abdomen Exam: Positive: Normal bowel sounds, Tenderness (right upper quadrant with mild guarding.), Other (No rebound or rigidity); Negative: Soft Extremity Exam: Positive: Other (right AKA) Neuro Exam: Positive: Normal Speech, Strength at 5/5 X4 ext, Normal Tone, Cranial Nerves 3-12 NL Psych Exam: Negative: Memory Intact Assessment /Plan Assessment Mr. Khoury is a 69-year-old male with peripheral vascular disease and right BKA who comes to [facility] for left leg weakness and found to have septic shock secondary to acute cholecystitis. During his hospitalization, he developed choledocholithiasis and GI performed ERCP on 05/11/2020. He will need to be on broad spectrum antibiotics until 05/18/2020 which can be taken orally. He will also need to take PO vancomycin for C.diff diarrhea until 05/19/2020. Physical therapy has worked with him and he will need continued rehab. Pending placement vs home Plan/VTE VTE Prophylaxis Ordered?: Yes Plan 1. Acute cholecystitis with choledocholithiasis -Status post ERCP 05/11/20, stent placed. Please see full operative report for further details. -Recommendation is to use broad-spectrum antibiotic for 7 additional days after ERCP (until 05/18/2020) -Continue with PO Cipro/Flagyl -Pepcid 20 mg by mouth daily for 6 weeks also recommended. -Patient will need cholecystectomy prior to stent removal, surgery had already been consulted earlier during this inpatient stay and they recommended 4-6 weeks after resolution of inflammation (presumably after ERCP 05/11/2020), therefore this will need to be scheduled as an outpatient (Mid June). -Will need a repeat ERCP in 3 months (End of July 2020) to remove stent, will need outpatient follow-up in GI clinic in 2 months (End of June 2020) upon discharge. -Continue to advance diet as tolerated 2. Status post septic shock -now resolved 3. C. difficile diarrhea -PO vancomycin 250 mg every 6 hours to be taken for a total of 10 days, started on 05/09/2020, stop on 05/19/2020 4. Chronic anemia -Stable 5. Status post right AKA -On admission, had left leg weakness which may have been secondary to sepsis -Continue working with PT until safe for discharge. May need to go to rehab uni or home with rehab. PT input is greatly appreciated. 6. Acute renal injury -Now resolved 7. Hypokalemia -Resolved 8. Peripheral vascular disease -Continue aspirin and atorvastatin 9. Diabetes mellitus with peripheral neuropathy -Sliding scale insulin, long-acting insulin, gabapentin, tramadol as needed 10. Stage II sacral decubiti -Present on admission, patient refusing it returned, and diarrhea is making matters worse, and patient refuses cleaning 11. Rash on back -Suspected to be eczematous dermatitis, triamcinolone cream twice a day 12. History of 3 strokes, the first one being at age 47 -Continue aspirin and statin 13. PTSD -Olanzapine as needed for anxiety/agitation 14. BPH - Continue Flomax - Miller catheter removed today, will use condom catheter. 15. HTN -Pressures have been elevated, therefore dose of amlodipine increased to 10 mg 16. DVT prophylaxis -Heparin Disposition: Continue PO broad spectrum antibiotics until 05/18 and PO vanco until 05/19. Will need physical therapy on discharge. Pending placement vs home VS, I&O, 24H, Fishbone Vital Signs/I&O Vital Signs Date Time Temp Pulse Resp B/P (MAP) Pulse Ox O2 Delivery O2 Flow Rate FiO2 05/16/20 14:00 98.0 66 18 140/52 (81) 96 Room Air I&O- Last 24 Hours up to 6 AM 05/16/20 06:00 Intake Total 440 ml Output Total 1700 ml Balance -1260 ml Laboratory Data 24H LABS Laboratory Tests 2 05/15/20 21:16: Bedside Glucose (Misc Panel) 154H 05/16/20 05:47: Nucleated Red Blood Cells % (auto) 0.0, Anion Gap 7L, Glomerular Filtration Rate > 60.0, Calcium Level 9.3 05/16/20 11:18: Bedside Glucose (Misc Panel) 239H 05/16/20 17:35: Bedside Glucose (Misc Panel) 139H CBC/BMP Laboratory Tests 05/16/20 05:47 HERNAN POWELL DO May 16, 2020 19:37
[2020-05-16 22:00] VITALS: BP 147/61
[2020-05-16] MEDS: ACETAMINOPHEN TAB 650MG DOSE (2X325MG) PO PRN (23:08)
[2020-05-17] MEDS: metroNIDAZOLE (FLAGYL) 500MG TABLET PO SCH ×4 (05:19→23:30)
[2020-05-17] MEDS: VANCOMYCIN ORAL SOL 250MG/5ML ORAL SYRINGE PO SCH ×4 (05:20→23:31)
[2020-05-17] MEDS: CIPROFLOXACIN 500MG TABLET PO SCH ×2 (05:20→18:03)
[2020-05-17 06:00] VITALS: BP 147/61
[2020-05-17 07:18] LABS: HEMATOCRIT 32.4 % (42.0-52.0); HEMOGLOBIN 10.4 g/dl (13.5-17.5); MEAN CORPUSCULAR HEMOGLOBIN 27.6 pg (27.0-33.0); MEAN CORPUSCULAR HGB CONC 32.1 g/dl (32.0-36.5); MEAN CORPUSCULAR VOLUME 85.9 fl (80.0-96.0); PLATELET COUNT, AUTOMATED 484 10^3/uL (150-450); RED BLOOD COUNT 3.77 10^6/uL (4.30-6.10); WHITE BLOOD COUNT 5.6 10^3/uL (4.0-10.0)
[2020-05-17 07:43] LABS: BLOOD UREA NITROGEN 11 MG/DL (7-18); CALCIUM LEVEL 9.4 MG/DL (8.8-10.2); CARBON DIOXIDE LEVEL 24 MEQ/L (21-32); CHLORIDE LEVEL 107 MEQ/L (98-107); CREATININE FOR GFR 0.92 MG/DL (0.70-1.30); GLOMERULAR FILTRATION RATE > 60.0 (>49); GLUCOSE, FASTING 168 MG/DL (70-100); POTASSIUM SERUM 4.3 MEQ/L (3.5-5.1); SODIUM LEVEL 138 MEQ/L (136-145)
[2020-05-17] MEDS: HEPARIN SOD (PORCINE) 5000UNITS/ML 1ML VIAL/SYRINGE SC SCH ×3 (08:46→20:56)
[2020-05-17] MEDS: HumaLOG INSULIN (NovoLOG) PER UNIT SC SCH ×4 (08:46→21:00)
[2020-05-17] MEDS: DOCUSATE SODIUM 100 MG CAP PO SCH ×2 (08:47→20:53)
[2020-05-17] MEDS: amLODIPine 10 MG TAB PO SCH (08:47)
[2020-05-17] MEDS: VANICREAM MOISTURIZING SKIN CREAM 113GM TUBE TOP SCH ×2 (08:47→20:53)
[2020-05-17] MEDS: ATORVASTATIN 20 MG TAB PO SCH (08:47)
[2020-05-17] MEDS: TAMSULOSIN 0.4 MG CAP PO SCH (08:47)
[2020-05-17] MEDS: GABAPENTIN 300 MG CAP PO SCH ×4 (08:47→20:53)
[2020-05-17] MEDS: ASPIRIN 81 MG ENTERIC TAB PO SCH (08:48)
[2020-05-17] MEDS: FAMOTIDINE 20 MG TAB PO SCH (08:48)
[2020-05-17] MEDS: POTASSIUM CHLORIDE 10 MEQ SR TABLET PO SCH (08:48)
[2020-05-17 20:00] VITALS: BP 145/58
[2020-05-18] MEDS: CIPROFLOXACIN 500MG TABLET PO SCH ×2 (05:08→17:53)
[2020-05-18] MEDS: metroNIDAZOLE (FLAGYL) 500MG TABLET PO SCH (05:08)
[2020-05-18] MEDS: VANCOMYCIN ORAL SOL 250MG/5ML ORAL SYRINGE PO SCH ×4 (05:09→23:17)
[2020-05-18 06:33] VITALS: BP 135/60
[2020-05-18] MEDS: HumaLOG INSULIN (NovoLOG) PER UNIT SC SCH ×4 (09:08→21:38)
[2020-05-18] MEDS: FAMOTIDINE 20 MG TAB PO SCH (09:09)
[2020-05-18] MEDS: HEPARIN SOD (PORCINE) 5000UNITS/ML 1ML VIAL/SYRINGE SC SCH ×2 (09:09→21:00)
[2020-05-18] MEDS: ATORVASTATIN 20 MG TAB PO SCH (09:10)
[2020-05-18] MEDS: POTASSIUM CHLORIDE 10 MEQ SR TABLET PO SCH (09:11)
[2020-05-18] MEDS: TAMSULOSIN 0.4 MG CAP PO SCH (09:11)
[2020-05-18] MEDS: DOCUSATE SODIUM 100 MG CAP PO SCH ×2 (09:11→21:38)
[2020-05-18] MEDS: amLODIPine 10 MG TAB PO SCH (09:12)
[2020-05-18] MEDS: ASPIRIN 81 MG ENTERIC TAB PO SCH (09:12)
[2020-05-18] MEDS: GABAPENTIN 300 MG CAP PO SCH ×4 (09:13→21:38)
[2020-05-18] MEDS: VANICREAM MOISTURIZING SKIN CREAM 113GM TUBE TOP SCH ×2 (09:13→21:37)
[2020-05-18 14:00] VITALS: BP 130/46
[2020-05-18 21:44] VITALS: BP 133/48
[2020-05-19] MEDS: VANCOMYCIN ORAL SOL 250MG/5ML ORAL SYRINGE PO SCH ×3 (05:13→17:10)
[2020-05-19 06:00] VITALS: BP 116/59
[2020-05-19 06:43] LABS: HEMATOCRIT 32.9 % (42.0-52.0); HEMOGLOBIN 10.5 g/dl (13.5-17.5); MEAN CORPUSCULAR HEMOGLOBIN 27.7 pg (27.0-33.0); MEAN CORPUSCULAR HGB CONC 31.9 g/dl (32.0-36.5); MEAN CORPUSCULAR VOLUME 86.8 fl (80.0-96.0); PLATELET COUNT, AUTOMATED 473 10^3/uL (150-450); RED BLOOD COUNT 3.79 10^6/uL (4.30-6.10); WHITE BLOOD COUNT 7.2 10^3/uL (4.0-10.0)
[2020-05-19 07:10] LABS: BLOOD UREA NITROGEN 17 MG/DL (7-18); CALCIUM LEVEL 9.1 MG/DL (8.8-10.2); CARBON DIOXIDE LEVEL 25 MEQ/L (21-32); CHLORIDE LEVEL 107 MEQ/L (98-107); CREATININE FOR GFR 0.92 MG/DL (0.70-1.30); GLOMERULAR FILTRATION RATE > 60.0 (>49); GLUCOSE, FASTING 203 MG/DL (70-100); POTASSIUM SERUM 4.4 MEQ/L (3.5-5.1); SODIUM LEVEL 139 MEQ/L (136-145)
[2020-05-19] MEDS: HEPARIN SOD (PORCINE) 5000UNITS/ML 1ML VIAL/SYRINGE SC SCH ×2 (09:00→21:00)
[2020-05-19 09:16] VITALS: BP 134/50
[2020-05-19] MEDS: HumaLOG INSULIN (NovoLOG) PER UNIT SC SCH ×4 (09:17→21:32)
[2020-05-19] MEDS: DOCUSATE SODIUM 100 MG CAP PO SCH ×2 (09:18→21:30)
[2020-05-19] MEDS: FAMOTIDINE 20 MG TAB PO SCH (09:18)
[2020-05-19] MEDS: amLODIPine 10 MG TAB PO SCH (09:18)
[2020-05-19] MEDS: ASPIRIN 81 MG ENTERIC TAB PO SCH (09:18)
[2020-05-19] MEDS: POTASSIUM CHLORIDE 10 MEQ SR TABLET PO SCH (09:19)
[2020-05-19] MEDS: TAMSULOSIN 0.4 MG CAP PO SCH (09:19)
[2020-05-19] MEDS: GABAPENTIN 300 MG CAP PO SCH ×4 (09:19→21:30)
[2020-05-19] MEDS: ATORVASTATIN 20 MG TAB PO SCH (09:19)
[2020-05-19] MEDS: VANICREAM MOISTURIZING SKIN CREAM 113GM TUBE TOP SCH ×2 (09:21→21:32)
[2020-05-20 06:00] VITALS: BP 147/56
[2020-05-20] MEDS: HEPARIN SOD (PORCINE) 5000UNITS/ML 1ML VIAL/SYRINGE SC SCH ×2 (09:00→21:21)
[2020-05-20] MEDS: HumaLOG INSULIN (NovoLOG) PER UNIT SC SCH ×4 (09:22→21:37)
[2020-05-20] MEDS: GABAPENTIN 300 MG CAP PO SCH ×4 (09:23→21:21)
[2020-05-20] MEDS: ASPIRIN 81 MG ENTERIC TAB PO SCH (09:23)
[2020-05-20] MEDS: amLODIPine 10 MG TAB PO SCH (09:23)
[2020-05-20] MEDS: FAMOTIDINE 20 MG TAB PO SCH (09:23)
[2020-05-20] MEDS: POTASSIUM CHLORIDE 10 MEQ SR TABLET PO SCH (09:23)
[2020-05-20] MEDS: ATORVASTATIN 20 MG TAB PO SCH (09:24)
[2020-05-20] MEDS: DOCUSATE SODIUM 100 MG CAP PO SCH ×2 (09:24→21:21)
[2020-05-20] MEDS: TAMSULOSIN 0.4 MG CAP PO SCH (09:24)
[2020-05-20] MEDS: VANICREAM MOISTURIZING SKIN CREAM 113GM TUBE TOP SCH ×2 (09:25→21:22)
[2020-05-21 06:00] VITALS: BP 120/59
[2020-05-21] MEDS: ASPIRIN 81 MG ENTERIC TAB PO SCH (08:32)
[2020-05-21] MEDS: FAMOTIDINE 20 MG TAB PO SCH (08:32)
[2020-05-21] MEDS: DOCUSATE SODIUM 100 MG CAP PO SCH ×2 (08:33→21:00)
[2020-05-21] MEDS: HumaLOG INSULIN (NovoLOG) PER UNIT SC SCH ×4 (08:33→21:48)
[2020-05-21] MEDS: GABAPENTIN 300 MG CAP PO SCH ×4 (08:33→21:49)
[2020-05-21] MEDS: TAMSULOSIN 0.4 MG CAP PO SCH (08:33)
[2020-05-21] MEDS: POTASSIUM CHLORIDE 10 MEQ SR TABLET PO SCH (08:34)
[2020-05-21] MEDS: ATORVASTATIN 20 MG TAB PO SCH (08:34)
[2020-05-21] MEDS: amLODIPine 10 MG TAB PO SCH (08:36)
[2020-05-21] MEDS: HEPARIN SOD (PORCINE) 5000UNITS/ML 1ML VIAL/SYRINGE SC SCH ×2 (08:37→21:49)
[2020-05-21] MEDS: VANICREAM MOISTURIZING SKIN CREAM 113GM TUBE TOP SCH ×2 (08:38→21:49)
[2020-05-21 08:56] LABS: HEMATOCRIT 34.9 % (42.0-52.0); MEAN CORPUSCULAR HEMOGLOBIN 27.2 pg (27.0-33.0); MEAN CORPUSCULAR HGB CONC 31.5 g/dl (32.0-36.5); MEAN CORPUSCULAR VOLUME 86.4 fl (80.0-96.0); PLATELET COUNT, AUTOMATED 463 10^3/uL (150-450); RED BLOOD COUNT 4.04 10^6/uL (4.30-6.10); WHITE BLOOD COUNT 7.3 10^3/uL (4.0-10.0)
[2020-05-21 09:26] LABS: BLOOD UREA NITROGEN 13 MG/DL (7-18); CALCIUM LEVEL 9.1 MG/DL (8.8-10.2); CARBON DIOXIDE LEVEL 26 MEQ/L (21-32); CHLORIDE LEVEL 104 MEQ/L (98-107); CREATININE FOR GFR 0.88 MG/DL (0.70-1.30); GLOMERULAR FILTRATION RATE > 60.0 (>49); GLUCOSE, FASTING 246 MG/DL (70-100); POTASSIUM SERUM 3.9 MEQ/L (3.5-5.1); SODIUM LEVEL 136 MEQ/L (136-145)
--- NOTE | 2020-05-21 13:25 | IPNPDOC ---
Text Note Date of Service The patient was seen on 05/21/20. NOTE Viral culture negative, dermatology has signed off VS,Parthbone, I+O VS, Fishbone, I+O Laboratory Tests 05/21/20 08:28 Vital Signs Date Time Temp Pulse Resp B/P (MAP) Pulse Ox O2 Delivery O2 Flow Rate FiO2 05/21/20 08:36 66 140/60 05/21/20 06:00 98.3 18 97 Room Air I&O- Last 24 Hours up to 6 AM 05/21/20 06:00 Intake Total 1800 ml Output Total 1800 ml Balance 0 ml ROSE SOLIZ MD May 21, 2020 13:25
[2020-05-22 06:46] VITALS: BP 151/65
[2020-05-22] MEDS: TAMSULOSIN 0.4 MG CAP PO SCH (08:28)
[2020-05-22] MEDS: ASPIRIN 81 MG ENTERIC TAB PO SCH (08:28)
[2020-05-22] MEDS: ATORVASTATIN 20 MG TAB PO SCH (08:28)
[2020-05-22] MEDS: GABAPENTIN 300 MG CAP PO SCH ×4 (08:28→23:03)
[2020-05-22] MEDS: amLODIPine 10 MG TAB PO SCH (08:28)
[2020-05-22] MEDS: FAMOTIDINE 20 MG TAB PO SCH (08:28)
[2020-05-22] MEDS: POTASSIUM CHLORIDE 10 MEQ SR TABLET PO SCH (08:29)
[2020-05-22] MEDS: HumaLOG INSULIN (NovoLOG) PER UNIT SC SCH ×4 (08:29→23:03)
[2020-05-22] MEDS: HEPARIN SOD (PORCINE) 5000UNITS/ML 1ML VIAL/SYRINGE SC SCH ×2 (08:29→23:02)
[2020-05-22] MEDS: DOCUSATE SODIUM 100 MG CAP PO SCH (08:30)
[2020-05-22] MEDS: VANICREAM MOISTURIZING SKIN CREAM 113GM TUBE TOP SCH ×2 (08:30→23:04)
[2020-05-22] MEDS ORDERED: DOCUSATE SODIUM 100 MG CAP PO PRN (13:15)
[2020-05-22 14:00] VITALS: BP 141/61
[2020-05-23 05:44] VITALS: BP 144/67
[2020-05-23] MEDS: HEPARIN SOD (PORCINE) 5000UNITS/ML 1ML VIAL/SYRINGE SC SCH ×2 (08:47→20:20)
[2020-05-23] MEDS: HumaLOG INSULIN (NovoLOG) PER UNIT SC SCH ×4 (08:47→20:19)
[2020-05-23] MEDS: ASPIRIN 81 MG ENTERIC TAB PO SCH (08:48)
[2020-05-23] MEDS: POTASSIUM CHLORIDE 10 MEQ SR TABLET PO SCH (08:48)
[2020-05-23] MEDS: ATORVASTATIN 20 MG TAB PO SCH (08:48)
[2020-05-23] MEDS: FAMOTIDINE 20 MG TAB PO SCH (08:48)
[2020-05-23] MEDS: TAMSULOSIN 0.4 MG CAP PO SCH (08:48)
[2020-05-23] MEDS: GABAPENTIN 300 MG CAP PO SCH ×4 (08:48→20:20)
[2020-05-23] MEDS: amLODIPine 10 MG TAB PO SCH (08:48)
[2020-05-23] MEDS: VANICREAM MOISTURIZING SKIN CREAM 113GM TUBE TOP SCH ×2 (08:49→20:20)
[2020-05-24 06:00] VITALS: BP 127/61
[2020-05-24] MEDS: HumaLOG INSULIN (NovoLOG) PER UNIT SC SCH ×4 (07:30→20:27)
[2020-05-24] MEDS: FAMOTIDINE 20 MG TAB PO SCH (10:33)
[2020-05-24] MEDS: POTASSIUM CHLORIDE 10 MEQ SR TABLET PO SCH (10:34)
[2020-05-24] MEDS: GABAPENTIN 300 MG CAP PO SCH ×4 (10:34→20:19)
[2020-05-24] MEDS: TAMSULOSIN 0.4 MG CAP PO SCH (10:34)
[2020-05-24] MEDS: ATORVASTATIN 20 MG TAB PO SCH (10:34)
[2020-05-24] MEDS: ASPIRIN 81 MG ENTERIC TAB PO SCH (10:35)
[2020-05-24] MEDS: amLODIPine 10 MG TAB PO SCH (10:35)
[2020-05-24] MEDS: HEPARIN SOD (PORCINE) 5000UNITS/ML 1ML VIAL/SYRINGE SC SCH ×2 (10:35→20:19)
[2020-05-24] MEDS: VANICREAM MOISTURIZING SKIN CREAM 113GM TUBE TOP SCH ×2 (10:36→20:19)
[2020-05-24] MEDS: LIDOCAINE 5% (LIDODERM) PATCH TD SCH (12:40)
--- NOTE | 2020-05-24 13:30 | IPNPDOC ---
Subjective Date Seen The patient was seen on 05/24/20. Subjective Chief Complaint/HPI Mr. Khoury is a 69-year-old male with peripheral vascular disease and right BKA who comes to [facility] for left leg weakness and found to have septic shock secondary to acute cholecystitis. During his hospitalization, he developed choledocholithiasis and GI performed ERCP on 05/11/2020. In the past week, he was resistant to physical therapy, but yesterday, he was agreeable to trying. Today, denies fever, chest pain, dyspnea, or abdominal pain. He has intermittent diarrhea. He said he lied on something on the right side which caused him pain. Will try a lidocaine patch. Objective Physical Examination General Exam: Positive: Alert, Cooperative, No Acute Distress Eye Exam: Positive: Conjunctiva & lids normal, EOMI; Negative: Sclera icteric ENT Exam: Positive: Atraumatic, Mucous membr. moist/pink, Pharynx Normal Neck Exam: Positive: Supple; Negative: JVD Chest Exam: Positive: Clear to auscultation, Rales (crackles at the bases), Diminished (jeferson the bases) Heart Exam: Positive: Rate Normal, Regular Rhythm, Normal S1, Normal S2; Negative: Murmurs, Rubs Abdomen Exam: Positive: Normal bowel sounds, Tenderness (right upper quadrant with mild guarding.), Other (No rebound or rigidity); Negative: Soft Extremity Exam: Positive: Other (right AKA) Neuro Exam: Positive: Normal Speech, Strength at 5/5 X4 ext, Normal Tone, Cranial Nerves 3-12 NL Psych Exam: Negative: Memory Intact Assessment /Plan Assessment Mr. Khoury is a 69-year-old male with peripheral vascular disease and right BKA who comes to [facility] for left leg weakness and found to have septic shock secondary to acute cholecystitis. During his hospitalization, he developed choledocholithiasis and GI performed ERCP on 05/11/2020. He completed broad spectrum antibiotics on 05/18/2020. He will completed PO vancomycin for C.diff diarrhea on 05/19/2020. He cannot go home due to his weakness. Physical therapy will continue working with him, although patient is intermittently agreeable to physical therapy. Plan/VTE VTE Prophylaxis Ordered?: Yes Plan 1. Acute cholecystitis with choledocholithiasis -Status post ERCP 05/11/20, stent placed. Please see full operative report for further details. -Recommendation is to use broad-spectrum antibiotic for 7 additional days after ERCP (until 05/18/2020) -Completed PO Cipro/Flagyl -Pepcid 20 mg by mouth daily for 6 weeks. -Patient will need cholecystectomy prior to stent removal, surgery had already been consulted earlier during this inpatient stay and they recommended 4-6 weeks after resolution of inflammation (presumably after ERCP 05/11/2020), therefore this will need to be scheduled as an outpatient (Mid June). -Will need a repeat ERCP in 3 months (End of July 2020) to remove stent, will need outpatient follow-up in GI clinic in 2 months (End of June 2020) upon discharge. -Continue to advance diet as tolerated 2. Status post septic shock -now resolved 3. C. difficile diarrhea -PO vancomycin 250 mg every 6 hours to be taken for a total of 10 days, started on 05/09/2020, stop on 05/19/2020 4. Chronic anemia -Stable 5. Status post right AKA -On admission, had left leg weakness which may have been secondary to sepsis -Continue working with PT until safe for discharge. PT input is greatly appreciated. 6. Acute renal injury -Now resolved 7. Hypokalemia -Resolved 8. Peripheral vascular disease -Continue aspirin and atorvastatin 9. Diabetes mellitus with peripheral neuropathy -Sliding scale insulin, long-acting insulin, gabapentin, tramadol as needed 10. Stage II sacral decubiti -Present on admission, patient refusing it returned, and diarrhea is making matters worse, and patient refuses cleaning 11. Rash on back -Suspected to be eczematous dermatitis, triamcinolone cream twice a day 12. History of 3 strokes, the first one being at age 47 -Continue aspirin and statin 13. PTSD -Olanzapine as needed for anxiety/agitation 14. BPH - Continue Flomax - Miller catheter removed today, will use condom catheter. 15. HTN -Pressures have been elevated, therefore dose of amlodipine increased to 10 mg 16. Tinea cruris and Tinea corporis -Intermittently requests bath -Nystatin powder for groin and buttock -Clotrimazole for side and buttock 17. DVT prophylaxis -Heparin Disposition: Too weak for home. Physical therapy to work with patient. Patient is intermittently agreeable to PT. VS, I&O, 24H, Fishbone Vital Signs/I&O Vital Signs Date Time Temp Pulse Resp B/P (MAP) Pulse Ox O2 Delivery O2 Flow Rate FiO2 05/24/20 10:35 66 150/61 05/24/20 06:00 98.1 18 96 Room Air I&O- Last 24 Hours up to 6 AM 05/24/20 05:59 Intake Total 620 ml Output Total 1350 ml Balance -730 ml Laboratory Data 24H LABS Laboratory Tests 2 05/23/20 17:04: Bedside Glucose (Misc Panel) 296H 05/23/20 20:11: Bedside Glucose (Misc Panel) 328H 05/24/20 06:49: Bedside Glucose (Misc Panel) 181H 05/24/20 11:41: Bedside Glucose (Misc Panel) 268H HERNAN POWELL DO May 24, 2020 13:30
[2020-05-24] MEDS: NYSTATIN 100,000 UNITS/GM TOPICAL PWD 15 GM TOP SCH ×2 (17:38→20:18)
[2020-05-24] MEDS: CLOTRIMAZOLE 1% TOPICAL CREAM 30GM TOP SCH ×2 (17:38→20:22)
[2020-05-24] MEDS: **NOTE PATIENT COMMENT** MISC XX SCH (20:19)
[2020-05-24 22:00] VITALS: BP 144/60
[2020-05-25 05:53] VITALS: BP 148/64
[2020-05-25] MEDS: HumaLOG INSULIN (NovoLOG) PER UNIT SC SCH ×5 (07:30→22:03)
[2020-05-25] MEDS: TAMSULOSIN 0.4 MG CAP PO SCH (08:16)
[2020-05-25] MEDS: FAMOTIDINE 20 MG TAB PO SCH (08:16)
[2020-05-25] MEDS: HEPARIN SOD (PORCINE) 5000UNITS/ML 1ML VIAL/SYRINGE SC SCH ×2 (08:16→22:02)
[2020-05-25] MEDS: ATORVASTATIN 20 MG TAB PO SCH (08:16)
[2020-05-25] MEDS: ASPIRIN 81 MG ENTERIC TAB PO SCH (08:16)
[2020-05-25] MEDS: GABAPENTIN 300 MG CAP PO SCH ×4 (08:17→22:01)
[2020-05-25] MEDS: amLODIPine 10 MG TAB PO SCH (08:17)
[2020-05-25] MEDS: POTASSIUM CHLORIDE 10 MEQ SR TABLET PO SCH (08:17)
[2020-05-25] MEDS: CLOTRIMAZOLE 1% TOPICAL CREAM 30GM TOP SCH ×2 (08:18→22:05)
[2020-05-25] MEDS: LIDOCAINE 5% (LIDODERM) PATCH TD SCH (08:18)
[2020-05-25] MEDS: NYSTATIN 100,000 UNITS/GM TOPICAL PWD 15 GM TOP SCH ×2 (08:19→22:04)
[2020-05-25] MEDS: VANICREAM MOISTURIZING SKIN CREAM 113GM TUBE TOP SCH ×2 (08:19→22:05)
[2020-05-25 20:56] VITALS: BP 143/59
[2020-05-25] MEDS: **NOTE PATIENT COMMENT** MISC XX SCH (21:00)
[2020-05-26 05:02] VITALS: BP 144/59
[2020-05-26] MEDS: HumaLOG INSULIN (NovoLOG) PER UNIT SC SCH ×4 (07:30→20:41)
[2020-05-26] MEDS: TAMSULOSIN 0.4 MG CAP PO SCH (08:17)
[2020-05-26] MEDS: ASPIRIN 81 MG ENTERIC TAB PO SCH (08:17)
[2020-05-26] MEDS: FAMOTIDINE 20 MG TAB PO SCH (08:18)
[2020-05-26] MEDS: HEPARIN SOD (PORCINE) 5000UNITS/ML 1ML VIAL/SYRINGE SC SCH ×2 (08:18→20:40)
[2020-05-26] MEDS: CLOTRIMAZOLE 1% TOPICAL CREAM 30GM TOP SCH ×2 (08:18→20:41)
[2020-05-26] MEDS: GABAPENTIN 300 MG CAP PO SCH ×4 (08:18→20:40)
[2020-05-26] MEDS: amLODIPine 10 MG TAB PO SCH (08:18)
[2020-05-26] MEDS: ATORVASTATIN 20 MG TAB PO SCH (08:18)
[2020-05-26] MEDS: LIDOCAINE 5% (LIDODERM) PATCH TD SCH (08:18)
[2020-05-26] MEDS: POTASSIUM CHLORIDE 10 MEQ SR TABLET PO SCH (08:18)
[2020-05-26] MEDS: VANICREAM MOISTURIZING SKIN CREAM 113GM TUBE TOP SCH ×2 (08:19→20:41)
[2020-05-26] MEDS: NYSTATIN 100,000 UNITS/GM TOPICAL PWD 15 GM TOP SCH ×2 (08:19→20:42)
[2020-05-26 20:00] VITALS: BP 141/59
[2020-05-26] MEDS: **NOTE PATIENT COMMENT** MISC XX SCH (20:42)
[2020-05-27 06:33] VITALS: BP 140/60
[2020-05-27] MEDS: HumaLOG INSULIN (NovoLOG) PER UNIT SC SCH ×4 (08:42→21:24)
[2020-05-27] MEDS: ATORVASTATIN 20 MG TAB PO SCH (08:43)
[2020-05-27] MEDS: TAMSULOSIN 0.4 MG CAP PO SCH (08:43)
[2020-05-27] MEDS: POTASSIUM CHLORIDE 10 MEQ SR TABLET PO SCH (08:43)
[2020-05-27] MEDS: amLODIPine 10 MG TAB PO SCH (08:43)
[2020-05-27] MEDS: FAMOTIDINE 20 MG TAB PO SCH (08:43)
[2020-05-27] MEDS: ASPIRIN 81 MG ENTERIC TAB PO SCH (08:43)
[2020-05-27] MEDS: GABAPENTIN 300 MG CAP PO SCH ×4 (08:43→21:23)
[2020-05-27] MEDS: HEPARIN SOD (PORCINE) 5000UNITS/ML 1ML VIAL/SYRINGE SC SCH ×2 (08:44→21:24)
[2020-05-27] MEDS: LIDOCAINE 5% (LIDODERM) PATCH TD SCH (08:44)
[2020-05-27] MEDS: VANICREAM MOISTURIZING SKIN CREAM 113GM TUBE TOP SCH ×2 (08:45→21:25)
[2020-05-27] MEDS: CLOTRIMAZOLE 1% TOPICAL CREAM 30GM TOP SCH ×2 (08:45→21:25)
[2020-05-27] MEDS: NYSTATIN 100,000 UNITS/GM TOPICAL PWD 15 GM TOP SCH ×2 (08:46→21:25)
[2020-05-27] MEDS: **NOTE PATIENT COMMENT** MISC XX SCH (21:25)
[2020-05-28 06:00] VITALS: BP 155/69
[2020-05-28] MEDS: HumaLOG INSULIN (NovoLOG) PER UNIT SC SCH ×4 (09:04→22:10)
[2020-05-28] MEDS: HEPARIN SOD (PORCINE) 5000UNITS/ML 1ML VIAL/SYRINGE SC SCH ×2 (09:05→22:02)
[2020-05-28] MEDS: ASPIRIN 81 MG ENTERIC TAB PO SCH (09:05)
[2020-05-28] MEDS: TAMSULOSIN 0.4 MG CAP PO SCH (09:05)
[2020-05-28] MEDS: FAMOTIDINE 20 MG TAB PO SCH (09:05)
[2020-05-28] MEDS: amLODIPine 10 MG TAB PO SCH (09:05)
[2020-05-28] MEDS: GABAPENTIN 300 MG CAP PO SCH ×4 (09:05→22:02)
[2020-05-28] MEDS: POTASSIUM CHLORIDE 10 MEQ SR TABLET PO SCH (09:06)
[2020-05-28] MEDS: ATORVASTATIN 20 MG TAB PO SCH (09:06)
[2020-05-28] MEDS: LIDOCAINE 5% (LIDODERM) PATCH TD SCH (09:06)
[2020-05-28] MEDS: VANICREAM MOISTURIZING SKIN CREAM 113GM TUBE TOP SCH ×2 (09:07→22:04)
[2020-05-28] MEDS: CLOTRIMAZOLE 1% TOPICAL CREAM 30GM TOP SCH ×2 (09:07→22:04)
[2020-05-28] MEDS: NYSTATIN 100,000 UNITS/GM TOPICAL PWD 15 GM TOP SCH ×2 (09:08→22:05)
[2020-05-28] MEDS: **NOTE PATIENT COMMENT** MISC XX SCH (21:00)
[2020-05-28] MEDS ORDERED: ONDANSETRON 4 MG TAB PO ONE (21:15)
[2020-05-29 06:00] VITALS: BP 143/61
[2020-05-29] MEDS: HumaLOG INSULIN (NovoLOG) PER UNIT SC SCH ×4 (08:30→21:52)
[2020-05-29] MEDS: TAMSULOSIN 0.4 MG CAP PO SCH (08:30)
[2020-05-29] MEDS: FAMOTIDINE 20 MG TAB PO SCH (08:30)
[2020-05-29] MEDS: amLODIPine 10 MG TAB PO SCH (08:31)
[2020-05-29] MEDS: ACETAMINOPHEN TAB 650MG DOSE (2X325MG) PO PRN (08:31)
[2020-05-29] MEDS: POTASSIUM CHLORIDE 10 MEQ SR TABLET PO SCH (08:31)
[2020-05-29] MEDS: ASPIRIN 81 MG ENTERIC TAB PO SCH (08:31)
[2020-05-29] MEDS: GABAPENTIN 300 MG CAP PO SCH ×4 (08:32→21:53)
[2020-05-29] MEDS: HEPARIN SOD (PORCINE) 5000UNITS/ML 1ML VIAL/SYRINGE SC SCH ×2 (08:32→21:53)
[2020-05-29] MEDS: ATORVASTATIN 20 MG TAB PO SCH (08:32)
[2020-05-29] MEDS: VANICREAM MOISTURIZING SKIN CREAM 113GM TUBE TOP SCH ×2 (08:33→21:53)
[2020-05-29] MEDS: LIDOCAINE 5% (LIDODERM) PATCH TD SCH (08:33)
[2020-05-29] MEDS: CLOTRIMAZOLE 1% TOPICAL CREAM 30GM TOP SCH ×2 (08:33→21:53)
[2020-05-29] MEDS: NYSTATIN 100,000 UNITS/GM TOPICAL PWD 15 GM TOP SCH ×2 (08:34→21:55)
[2020-05-29] MEDS: **NOTE PATIENT COMMENT** MISC XX SCH (21:55)
[2020-05-30 06:00] VITALS: BP 150/64
[2020-05-30] MEDS: POTASSIUM CHLORIDE 10 MEQ SR TABLET PO SCH (08:39)
[2020-05-30] MEDS: HumaLOG INSULIN (NovoLOG) PER UNIT SC SCH ×2 (08:39→08:48)
[2020-05-30] MEDS: FAMOTIDINE 20 MG TAB PO SCH (08:39)
[2020-05-30] MEDS: HEPARIN SOD (PORCINE) 5000UNITS/ML 1ML VIAL/SYRINGE SC SCH ×2 (08:40→08:49)
[2020-05-30] MEDS: TAMSULOSIN 0.4 MG CAP PO SCH (08:40)
[2020-05-30] MEDS: GABAPENTIN 300 MG CAP PO SCH (08:40)
[2020-05-30] MEDS: ATORVASTATIN 20 MG TAB PO SCH (08:40)
[2020-05-30] MEDS: ASPIRIN 81 MG ENTERIC TAB PO SCH (08:40)
[2020-05-30] MEDS: LIDOCAINE 5% (LIDODERM) PATCH TD SCH (08:41)
[2020-05-30] MEDS: VANICREAM MOISTURIZING SKIN CREAM 113GM TUBE TOP SCH (08:41)
[2020-05-30] MEDS: CLOTRIMAZOLE 1% TOPICAL CREAM 30GM TOP SCH (08:41)
[2020-05-30] MEDS: NYSTATIN 100,000 UNITS/GM TOPICAL PWD 15 GM TOP SCH (08:42)
[2020-05-30 08:43] VITALS: BP 150/64
[2020-05-30] MEDS: amLODIPine 10 MG TAB PO SCH (08:43)
[2020-05-30] MEDS ORDERED: CLOTR1CR TOP (09:09)
[2020-05-30] MEDS ORDERED: AMLO1TAB25 PO (09:09)
[2020-05-30] MEDS ORDERED: FAMO20TA PO (09:10)
--- NOTE | 2020-05-30 11:06 | DS.PDOC ---
Discharge Summary General Date of Admission May 02, 2020 at 14:35 Date of Discharge 05/30/2020 Discharge Summary PROCEDURES PERFORMED DURING STAY: ERCP by gastroenterology on 05/11/2020 ADMITTING DIAGNOSES / DISCHARGE DIAGNOSES: s/p Acute cholecystitis with choledocholithiasis s/p Septic shock s/p C. difficile diarrhea Chronic anemia PVD with R AKA s/p ROBERT Peripheral vascular disease Diabetes mellitus with peripheral neuropathy Stage II sacral decubitus ulcer History of 3 strokes, the first one being at age 47 BPH HTN Tinea cruris and Tinea corporis DVT prophylaxis COMPLICATIONS/CHIEF COMPLAINT: Weakness HISTORY OF PRESENT ILLNESS: Patient is a 69 year old male with a PMHx of PVD (s/p R BKA), who presented to [facility] for L leg weakness. Was found to be in septic shock 2/2 acute cholecystitis. She had developed choledocholithiasis and was eventually give her an ERCP by gastroenterology on 05/11/2020. Patient has worked with physical therapy, however, has not yet cleared, patient refuses to go to rehabilitation. Patient will be leaving AGAINST MEDICAL ADVICE because he has not yet cleared physical therapy. HOSPITAL COURSE: s/p Acute cholecystitis with choledocholithiasis - s/p ERCP 05/11/20 with stent placed - s/p Broad spectrum antibiotics; s/p PO antibiotics course - c/w Famotidine - Will have outpatient follow up with General surgery and GI within 7 days - Tolerating diet s/p Septic shock s/p C. difficile diarrhea - s/p Vancomycin PO Chronic anemia - Hg had remained stable - No evidence of bleeding PVD with R AKA - c/w PT and OT - has not yet cleared - PT had recommended rehab to establish safe DC home; patient refuses and wants to go home - advised risks / benefits - Will be leaving Against medical advise s/p ROBERT Peripheral vascular disease - c/w aspirin and atorvastatin Diabetes mellitus with peripheral neuropathy - c/w ISS and Gabapentin Stage II sacral decubitus ulcer - Was present on admission - Patient has refused care for this area History of 3 strokes, the first one being at age 47 - c/w ASA and statin BPH - s/p Miller catheter - c/w Tamsulosin HTN - Mildly elevated - c/w Amlodipine - Outpatient follow up with PCP Tinea cruris and Tinea corporis - c/w Nystatin and Clotrimazole DVT prophylaxis - c/w Heparin DISCHARGE MEDICATIONS: Please see below. ALLERGIES: Please see below. PHYSICAL EXAMINATION ON DISCHARGE: Vitals (See below) General: Lying in bed, appears upset but comfortable, AAOx3 HEENT: NC, AT CVS: +S1S2 Lungs: Fair air entry b/l, no wheezing / rhonchi / rales Abdomen: Soft, ND, NT Extremities: R BKA, no edema of L leg, - Calf tenderness LABORATORY DATA: Please see below. ACTIVITY: [As tolerated]. DISCHARGE PLAN: Follow up with PCP, GI and General surgery within 7 days DISPOSITION: Home / AMA DISCHARGE CONDITION: [Stable]. TIME SPENT ON DISCHARGE: 35 minutes Vital Signs/I&Os Vital Signs Date Time Temp Pulse Resp B/P (MAP) Pulse Ox O2 Delivery O2 Flow Rate FiO2 05/30/20 08:43 82 150/64 05/30/20 06:00 98.5 18 97 Room Air I&O- Last 24 Hours up to 6 AM 05/30/20 06:00 Intake Total 1380 ml Output Total 1750 ml Balance -370 ml Laboratory Data Labs 24H Laboratory Tests 2 05/29/20 11:46: Bedside Glucose (Misc Panel) 236H 05/29/20 16:37: Bedside Glucose (Misc Panel) 307H 05/29/20 20:51: Bedside Glucose (Misc Panel) 432H 05/30/20 06:19: Bedside Glucose (Misc Panel) 184H FSBS Laboratory Tests Test 05/29/20 11:46 05/29/20 16:37 05/29/20 20:51 05/30/20 06:19 Range/Units Bedside Glucose (Misc Panel) 236 307 432 184 80-115 MG/DL Discharge Medications Scheduled Amlodipine Besylate (Amlodipine Besylate) 10 Mg Tablet, 10 MG PO DAILY Aspirin (Aspirin EC) 81 Mg Tablet.dr, 81 MG PO DAILY, (Reported) Atorvastatin Calcium (Atorvastatin Calcium) 80 Mg Tab, 80 MG PO DAILY, (Reported) Clotrimazole (Clotrimazole) 30 Gm Cream..g., 0 DOSE TOP BID Empagliflozin (Jardiance) 10 Mg Tablet, 10 MG PO DAILY, (Reported) Famotidine (Famotidine) 20 Mg Tablet, 20 MG PO DAILY Gabapentin (Gabapentin) 300 Mg Capsule, 300 MG PO QID, (Reported) Glipizide (Glipizide) 5 Mg Tablet, 5 MG PO DAILY, (Reported) Metformin HCl (Metformin HCl) 1,000 Mg Tablet, 1,000 MG PO BID, (Reported) Tamsulosin Hcl (Tamsulosin HCl) 0.4 Mg Capsule, 0.4 MG PO DAILY, (Reported) Scheduled PRN Ketoconazole (Ketoconazole) 120 Ml Shampoo, 1 DOSE TOP DAILY PRN for INFLAMED SKIN, (Reported) APPLY TO SCALP AND AQUINO Tramadol HCl (Tramadol HCl) 50 Mg Tablet, 50 MG PO DAILY PRN for PAIN, (Reported) Allergies Coded Allergies: ibuprofen (Verified Allergy, Severe, TROUBLE BREATHING, 04/04/19) strawberry (Verified Allergy, Severe, THROAT SWELLING, 04/04/19) ROMELIA FRANCIS MD May 30, 2020 11:06
== END 2020-05-30 11:30 | disposition left against medical advice (07) ==
LOC: M ED 09:04 → EDBD 09:04 → M ED INP 14:35 → ENRESERV 15:23 → M PCU 16:57 → M ICU 05-03 01:25 → M PCU 05-03 11:56 → M MS5PR 05-15 14:30
PROVIDERS: ADMIT Internal Medicine; ATTEND Internal Medicine
PROC: 02HV33Z Insertion of Infusion Device into Superior Vena Cava, Percutaneous Approach (ICD-10-PCS; 2020-05-03)
PROC: 0F798DZ Dilation of Common Bile Duct with Intraluminal Device, Via Natural or Artificial Opening Endoscopic (ICD-10-PCS; 2020-05-11)
PROC: 0FC98ZZ Extirpation of Matter from Common Bile Duct, Via Natural or Artificial Opening Endoscopic (ICD-10-PCS; principal; 2020-05-11 15:30)
DX: K80.62 Calculus of gallbladder and bile duct with acute cholecystitis without obstruction (principal); R65.21 Severe sepsis with septic shock; A41.9 Sepsis, unspecified organism; N17.9 Acute kidney failure, unspecified; L89.152 Pressure ulcer of sacral region, stage 2; A04.72 Enterocolitis due to Clostridium difficile, not specified as recurrent; E11.51 Type 2 diabetes mellitus with diabetic peripheral angiopathy without gangrene; E87.5 Hyperkalemia; Z89.611 Acquired absence of right leg above knee; D64.9 Anemia, unspecified; N40.0 Benign prostatic hyperplasia without lower urinary tract symptoms; Z86.73 Personal history of transient ischemic attack (TIA), and cerebral infarction without residual deficits; B35.6 Tinea cruris; B35.4 Tinea corporis; I10 Essential (primary) hypertension; Z79.899 Other long term (current) drug therapy; Z79.82 Long term (current) use of aspirin; Z91.018 Allergy to other foods; Z88.6 Allergy status to analgesic agent; E78.5 Hyperlipidemia, unspecified

== ENCOUNTER → 2020-07-16 | Outpatient (REF) | payer OTHER, MEDICAID ==
[~2020-07-16] MED LIST changes: +AMLO1TAB25 PO; +CLOTR1CR TOP; +FAMO20TA PO; +FURO40TA2 PO; +GLIP5TAB8 PO; +JARD1TAB PO; +TAMS1CAP17 PO
[2020-07-16 16:52] LABS: ALBUMIN 3.1 GM/DL (3.2-5.2); ALT/SGPT 14 U/L (12-78); BILIRUBIN,TOTAL 0.3 MG/DL (0.2-1.0); BLOOD UREA NITROGEN 41 MG/DL (7-18); CALCIUM LEVEL 9.4 MG/DL (8.8-10.2); CARBON DIOXIDE LEVEL 24 MEQ/L (21-32); CHLORIDE LEVEL 104 MEQ/L (98-107); CHOLESTEROL LEVEL 92 MG/DL (<200); CHOLESTEROL RISK RATIO 2.555 (<5); CREATININE FOR GFR 1.23 MG/DL (0.70-1.30); GLOMERULAR FILTRATION RATE > 60.0 (>49); GLUCOSE, FASTING 147 MG/DL (70-100); HDL CHOLESTEROL 36 MG/DL (>40); LDL CHOLESTEROL 45 MG/DL (<100); NON-HDL-C 56 MG/DL; POTASSIUM SERUM 5.5 MEQ/L (3.5-5.1); SODIUM LEVEL 133 MEQ/L (136-145); TOTAL PROTEIN 7.7 GM/DL (6.4-8.2); TRIGLYCERIDES LEVEL 53 MG/DL (<150)
[2020-07-16 16:55] LABS: HEMOGLOBIN A1c 7.8 %
== END ==
LOC: M SFHCPLAZ 14:06
PROVIDERS: ATTEND Nurse Practitioner Adult Health
DX: E11.52 Type 2 diabetes mellitus with diabetic peripheral angiopathy with gangrene (principal); E78.2 Mixed hyperlipidemia
CPT/HCPCS: 36415; 80053; 80061; 83036; G0463

== ENCOUNTER → 2020-08-14 | Outpatient (CLI) | payer OTHER, MEDICAID ==
[~2020-08-14] MED LIST changes: +GABA-282 PO; -GABA-843 PO
--- NOTE | 2020-08-14 16:54 | REP ---
INDICATION: UNSP ATHSCL [place] ARTERIES [place] LEG. Peripheral vascular disease. Patient is status post above the knee amputation on the right. COMPARISON: None. TECHNIQUE: Bilateral lower extremity arterial Doppler ultrasound. FINDINGS: There is a right axillofemoral bypass graft and a right to left fem-fem crossover graft. These are seen to be patent. Bilateral superficial femoral artery occlusions are observed. In the left lower extremity the distal superficial femoral artery flow is reconstituted. Monophasic waveforms are noted distal to this. Velocity chart right axillo fem bypass graft: Proximal graft at subclavian anastomosis 79 cm/S Axillary 78 Right mid flank 76 Right groin 68 Fem-fem crossover graft Right side and anastomosis 75 cm/S Mid graft 67 cm/S Left Side of graft 54 cm/S Right lower extremity arterial Doppler velocity chart: Right DIRECTOR ENERGY PSV 136 cm/S Profundal 144 Proximal SFA 37 Mid SFA occluded Distal SFA occluded Left lower extremity arterial Doppler velocity chart: Left DIRECTOR ENERGY reversed flow Left profundal reversed flow Left proximal SFA 129 cm/S Mid SFA occluded Distal SFA 32 Popliteal 28 Proximal NEETA 21 Tibial-peroneal trunk 25 Proximal DISPATCH MACHINE RUNNER not seen Distal DISPATCH MACHINE RUNNER 12 Distal NEETA 14 IMPRESSION: Atherosclerotic changes. Above the knee amputation on the right. Patent right axillo fem and right to left fem-fem crossover graft. Left-sided anastomosis in the proximal SFA. Occluded mid SFA on the left with monophasic waveforms distal. Occlusion of the mid SFA on the right. <Electronically signed by Rodger Chavez > 08/14/20 1184
== END ==
LOC: M RAD 13:20
PROVIDERS: ATTEND Surgery Vascular Surgery
DX: I70.203 Unspecified atherosclerosis of native arteries of extremities, bilateral legs (principal); Z89.611 Acquired absence of right leg above knee; I74.3 Embolism and thrombosis of arteries of the lower extremities

== ENCOUNTER → 2021-03-19 | Outpatient (CLI) | payer MEDICAID, OTHER ==
[~2021-03-19] MED LIST changes: +ASPI-569 PO; -ASPI81TAEC PO; +LISI10TA22 PO; -LISI10TA4 PO
[2021-03-19 15:32] LABS: HEMOGLOBIN A1c 10.9 %
[2021-03-19 15:45] LABS: ALBUMIN 3.7 GM/DL (3.2-5.2); ALT/SGPT 51 U/L (12-78); BILIRUBIN,TOTAL 0.3 MG/DL (0.2-1.0); BLOOD UREA NITROGEN 26 MG/DL (7-18); CALCIUM LEVEL 9.3 MG/DL (8.8-10.2); CARBON DIOXIDE LEVEL 25 MEQ/L (21-32); CHLORIDE LEVEL 104 MEQ/L (98-107); CHOLESTEROL LEVEL 132 MG/DL (<200); CHOLESTEROL RISK RATIO 2.869 (<5); CREATININE FOR GFR 0.97 MG/DL (0.70-1.30); GLOMERULAR FILTRATION RATE > 60.0 (>49); GLUCOSE, FASTING 180 MG/DL (70-100); HDL CHOLESTEROL 46 MG/DL (>40); LDL CHOLESTEROL 65 MG/DL (<100); NON-HDL-C 86 MG/DL; POTASSIUM SERUM 4.4 MEQ/L (3.5-5.1); SODIUM LEVEL 136 MEQ/L (136-145); TOTAL PROTEIN 7.2 GM/DL (6.4-8.2); TRIGLYCERIDES LEVEL 103 MG/DL (<150)
== END ==
LOC: M PLALAB 12:29
PROVIDERS: ATTEND Nurse Practitioner Adult Health
DX: E11.52 Type 2 diabetes mellitus with diabetic peripheral angiopathy with gangrene (principal); Z12.5 Encounter for screening for malignant neoplasm of prostate; E78.2 Mixed hyperlipidemia

== ENCOUNTER → 2021-07-23 | Outpatient (CLI) | payer OTHER, MEDICAID ==
[~2021-07-23] MED LIST changes: -TERB250T12 PO; +TERB250T91 PO
[2021-07-23 17:47] LABS: HEMATOCRIT 46.7 % (42.0-52.0); HEMOGLOBIN 14.9 g/dl (13.5-17.5); MEAN CORPUSCULAR HEMOGLOBIN 28.6 pg (27.0-33.0); MEAN CORPUSCULAR HGB CONC 31.9 g/dl (32.0-36.5); MEAN CORPUSCULAR VOLUME 89.6 fl (80.0-96.0); PLATELET COUNT, AUTOMATED 267 10^3/uL (150-450); RED BLOOD COUNT 5.21 10^6/uL (4.30-6.10); WHITE BLOOD COUNT 11.6 10^3/uL (4.0-10.0)
[2021-07-23 21:40] LABS: HEMOGLOBIN A1c 10.6 %
[2021-07-23 22:59] LABS: ALBUMIN 4.1 GM/DL (3.2-5.2); ALT/SGPT 45 U/L (12-78); BILIRUBIN,TOTAL 0.3 MG/DL (0.2-1.0); BLOOD UREA NITROGEN 17 MG/DL (7-18); CALCIUM LEVEL 9.8 MG/DL (8.8-10.2); CARBON DIOXIDE LEVEL 25 MEQ/L (21-32); CHLORIDE LEVEL 106 MEQ/L (98-107); CREATININE FOR GFR 1.07 MG/DL (0.70-1.30); GLOMERULAR FILTRATION RATE > 60.0 (>49); GLUCOSE, FASTING 242 MG/DL (70-100); POTASSIUM SERUM 4.5 MEQ/L (3.5-5.1); SODIUM LEVEL 139 MEQ/L (136-145); TOTAL PROTEIN 7.3 GM/DL (6.4-8.2)
== END ==
LOC: M PLALAB 15:38
PROVIDERS: ATTEND Nurse Practitioner Adult Health
DX: Z01.818 Encounter for other preprocedural examination (principal); H25.12 Age-related nuclear cataract, left eye; Z79.899 Other long term (current) drug therapy
CPT/HCPCS: 36415; 80053; 83036; 85027; 93005; G0463

== ENCOUNTER 2022-03-05 22:02 | Emergency (ER) | payer OTHER, MEDICAID ==
[2022-03-05 22:34] VITALS: BP 143/65
== END 2022-03-06 00:55 | disposition home or self-care (01) ==
LOC: M ED 22:02
DX: R53.1 Weakness (principal); W08.XXXA Fall from other furniture, initial encounter; E11.9 Type 2 diabetes mellitus without complications; I10 Essential (primary) hypertension; E78.5 Hyperlipidemia, unspecified; F17.200 Nicotine dependence, unspecified, uncomplicated; Z86.73 Personal history of transient ischemic attack (TIA), and cerebral infarction without residual deficits; Z88.6 Allergy status to analgesic agent; Z91.02 Food additives allergy status; Z79.4 Long term (current) use of insulin; Z79.811 Long term (current) use of aromatase inhibitors; Z79.899 Other long term (current) drug therapy; Y99.9 Unspecified external cause status

== ENCOUNTER 2022-03-07 10:00 | Emergency (ER) | payer OTHER, MEDICAID ==
[~2022-03-07] VITALS: Ht 162.6 cm; Wt 63.0 kg
[2022-03-07 13:23] VITALS: BP 136/74
[2022-03-08] MEDS ORDERED: JARD1TAB3 PO (17:40)
[2022-03-08] MEDS ORDERED: ATOR80TA59 PO (17:40)
[2022-03-08] MEDS ORDERED: AMLO1TAB25 PO (17:40)
== END 2022-03-07 13:37 | disposition home or self-care (01) ==
LOC: M ED 10:00
DX: L89.102 Pressure ulcer of unspecified part of back, stage 2 (principal); W08.XXXA Fall from other furniture, initial encounter; M54.50 Low back pain, unspecified; I10 Essential (primary) hypertension; E11.9 Type 2 diabetes mellitus without complications; F17.200 Nicotine dependence, unspecified, uncomplicated; Z88.6 Allergy status to analgesic agent; Z91.02 Food additives allergy status; Z79.4 Long term (current) use of insulin; Z79.811 Long term (current) use of aromatase inhibitors; Z79.899 Other long term (current) drug therapy; Y99.9 Unspecified external cause status

== ENCOUNTER 2022-03-08 13:27 | Inpatient (IN) | payer OTHER, MEDICAID ==
[~2022-03-08] VITALS: Ht 162.6 cm; Wt 63.5 kg
[2022-03-08 14:32] LABS: BASO % 0.2 % (0.0-1.0); HEMOGLOBIN 15.2 g/dl (13.5-17.5); LYMPH # 0.7 10^3/uL (1.5-5.0); LYMPH % 12.4 % (24.0-44.0); MEAN CORPUSCULAR HEMOGLOBIN 28.1 pg (27.0-33.0); MEAN CORPUSCULAR HGB CONC 32.3 g/dl (32.0-36.5); MEAN CORPUSCULAR VOLUME 86.9 fl (80.0-96.0); MONO # 0.7 10^3/uL (0.0-0.8); MONO % 13.1 % (2.0-8.0); NEUTROPHILS # 4.1 10^3/uL (1.5-8.5); NEUTROPHILS % 73.8 % (36.0-66.0); PLATELET COUNT, AUTOMATED 167 10^3/uL (150-450); RED BLOOD COUNT 5.41 10^6/uL (4.30-6.10); WHITE BLOOD COUNT 5.6 10^3/uL (4.0-10.0)
[2022-03-08 15:07] LABS: RSV AMPLIFICATION NEGATIVE (NEGATIVE)
[2022-03-08 15:08] LABS: CK-MB VALUE MASS 1.8 NG/ML (<3.6); MB/CK RELATIVE INDEX 1.32 (< OR =4)
[2022-03-08 15:16] LABS: BLOOD UREA NITROGEN 16 MG/DL (7-18); CALCIUM LEVEL 9.2 MG/DL (8.8-10.2); CARBON DIOXIDE LEVEL 24 MEQ/L (21-32); CHLORIDE LEVEL 103 MEQ/L (98-107); ETHYL ALCOHOL (ETHANOL) < 0.003 % (0.000-0.010); GLOMERULAR FILTRATION RATE > 60.0 (>49); GLUCOSE, FASTING 167 MG/DL (70-100); MAGNESIUM LEVEL 2.1 MG/DL (1.8-2.4); POTASSIUM SERUM 3.6 MEQ/L (3.5-5.1); SODIUM LEVEL 136 MEQ/L (136-145)
[2022-03-08] MEDS ORDERED: DEXTROSE 50% 50 ML SYRINGE IV PRN (17:25)
[2022-03-08] MEDS ORDERED: GLUCOSE 4GM CHEW TABLET PO PRN (17:25)
[2022-03-08] MEDS ORDERED: PERCOCET 5MG/325MG TAB PO PRN ×2 (17:25)
[2022-03-08] MEDS ORDERED: GLUCAGON INJ 1MG VIAL SC PRN (17:25)
[2022-03-08] MEDS: INSULIN LISPRO (NovoLOG) PER UNIT SC SCH ×2 (17:30→21:00)
[2022-03-08] MEDS ORDERED: HOME MED LIST COMPLETE! XX SCH (17:40)
[2022-03-08] MEDS ORDERED: JARD1TAB3 PO (17:40)
[2022-03-08] MEDS ORDERED: ATOR80TA59 PO (17:40)
[2022-03-08] MEDS ORDERED: AMLO1TAB25 PO (17:40)
[2022-03-08] MEDS ORDERED: NICOTINE 21MG/24HR 1 EA TRANSDERMAL TD ONE (17:40)
[2022-03-08 19:02] LABS: INR 0.87; PROTHROMBIN TIME 12.3 SECONDS (12.7-14.5)
[2022-03-08 19:03] LABS: PARTIAL THROMBOPLASTIN TIME 32.9 SECONDS (25.9-37.0)
[2022-03-08 19:06] LABS: D-DIMER QUANT 1395.72 ng/ml (<500)
[2022-03-08 19:34] LABS: BILIRUBIN,DIRECT 0.4 MG/DL (0.0-0.2); BILIRUBIN,TOTAL 0.6 MG/DL (0.2-1.0); C REACTIVE PROTEIN QUANTITATIV 0.76 MG/DL (0.00-0.30); TOTAL PROTEIN 6.6 GM/DL (6.4-8.2)
[2022-03-08] MEDS ORDERED: REMDESIVIR 200 MG in NS 250 ML IV ONE (20:00)
[2022-03-08 20:04] LABS: AMPHETAMINES LEVEL URINE NEGATIVE (NEGATIVE); BARBITURATES URINE NEGATIVE (NEGATIVE); BENZODIAZEPINES URINE NEGATIVE (NEGATIVE); CANNABINOIDS URINE NEGATIVE (NEGATIVE); COCAINE METABOLITE URINE NEGATIVE (NEGATIVE); METHADONE URINE NEGATIVE (NEGATIVE); OPIATES URINE NEGATIVE (NEGATIVE); PHENCYCLIDINE URINE NEGATIVE (NEGATIVE)
[2022-03-08 21:25] VITALS: BP 152/60
[2022-03-08] MEDS ORDERED: SODIUM CHLORIDE 0.9% INJ 10 ML SYR IV ONE (22:00)
[2022-03-08] MEDS: ASPIRIN 81MG ENTERIC TABLET PO SCH (22:49)
[2022-03-08] MEDS: ENOXAPARIN 40MG/0.4ML SYRINGE (J1650 PER 10MG) SC SCH (22:50)
[2022-03-08] MEDS: ATORVASTATIN 20 MG TAB PO SCH (22:50)
[2022-03-08] MEDS: GABAPENTIN 300 MG CAP PO SCH (22:51)
[2022-03-09 05:22] VITALS: BP 152/62
[2022-03-09 06:12] LABS: HEMATOCRIT 42.7 % (42.0-52.0); HEMOGLOBIN 13.8 g/dl (13.5-17.5); MEAN CORPUSCULAR HEMOGLOBIN 27.8 pg (27.0-33.0); MEAN CORPUSCULAR HGB CONC 32.3 g/dl (32.0-36.5); MEAN CORPUSCULAR VOLUME 86.1 fl (80.0-96.0); PLATELET COUNT, AUTOMATED 146 10^3/uL (150-450); RED BLOOD COUNT 4.96 10^6/uL (4.30-6.10); WHITE BLOOD COUNT 4.4 10^3/uL (4.0-10.0)
[2022-03-09 06:40] LABS: ALBUMIN 2.8 GM/DL (3.2-5.2); ALT/SGPT 118 U/L (12-78); BILIRUBIN,TOTAL 0.6 MG/DL (0.2-1.0); BLOOD UREA NITROGEN 14 MG/DL (7-18); CALCIUM LEVEL 8.6 MG/DL (8.8-10.2); CARBON DIOXIDE LEVEL 24 MEQ/L (21-32); CHLORIDE LEVEL 105 MEQ/L (98-107); CREATININE FOR GFR 0.86 MG/DL (0.70-1.30); GLOMERULAR FILTRATION RATE > 60.0 (>49); GLUCOSE, FASTING 168 MG/DL (70-100); POTASSIUM SERUM 3.5 MEQ/L (3.5-5.1); SODIUM LEVEL 137 MEQ/L (136-145); TOTAL PROTEIN 5.8 GM/DL (6.4-8.2)
[2022-03-09] MEDS: TAMSULOSIN 0.4 MG CAP PO SCH (08:02)
[2022-03-09] MEDS: ASPIRIN 81MG ENTERIC TABLET PO SCH (08:02)
[2022-03-09] MEDS: GABAPENTIN 300 MG CAP PO SCH ×4 (08:02→20:36)
[2022-03-09] MEDS: ENOXAPARIN 40MG/0.4ML SYRINGE (J1650 PER 10MG) SC SCH (08:03)
[2022-03-09] MEDS: INSULIN LISPRO (NovoLOG) PER UNIT SC SCH ×4 (08:04→20:26)
[2022-03-09] MEDS: LEVEMIR (INSULIN DETEMIR) 1 UNITS/0.01ML SC SCH (10:22)
[2022-03-09 14:00] VITALS: BP 134/53
[2022-03-09] MEDS: ACETAMINOPHEN TAB 650MG DOSE (2X325MG) PO PRN (14:59)
[2022-03-09 20:16] VITALS: BP 132/50
[2022-03-09] MEDS: REMDESIVIR 100 MG in NS 250 ML IV SCH (20:35)
[2022-03-09] MEDS: ATORVASTATIN 20 MG TAB PO SCH (20:36)
[2022-03-09] MEDS: SODIUM CHLORIDE 0.9% INJ 10 ML SYR IV SCH (20:36)
[2022-03-10 05:50] VITALS: BP 144/56
[2022-03-10 06:15] LABS: HEMOGLOBIN 12.9 g/dl (13.5-17.5); MEAN CORPUSCULAR HEMOGLOBIN 27.7 pg (27.0-33.0); MEAN CORPUSCULAR HGB CONC 32.3 g/dl (32.0-36.5); PLATELET COUNT, AUTOMATED 132 10^3/uL (150-450); RED BLOOD COUNT 4.65 10^6/uL (4.30-6.10); WHITE BLOOD COUNT 5.5 10^3/uL (4.0-10.0)
[2022-03-10 06:48] LABS: ALBUMIN 2.5 GM/DL (3.2-5.2); ALT/SGPT 136 U/L (12-78); BILIRUBIN,TOTAL 0.5 MG/DL (0.2-1.0); BLOOD UREA NITROGEN 18 MG/DL (7-18); CALCIUM LEVEL 8.2 MG/DL (8.8-10.2); CARBON DIOXIDE LEVEL 23 MEQ/L (21-32); CHLORIDE LEVEL 107 MEQ/L (98-107); CREATININE FOR GFR 0.75 MG/DL (0.70-1.30); GLOMERULAR FILTRATION RATE > 60.0 (>49); GLUCOSE, FASTING 151 MG/DL (70-100); POTASSIUM SERUM 3.1 MEQ/L (3.5-5.1); SODIUM LEVEL 137 MEQ/L (136-145); TOTAL PROTEIN 5.3 GM/DL (6.4-8.2)
[2022-03-10] MEDS: ENOXAPARIN 40MG/0.4ML SYRINGE (J1650 PER 10MG) SC SCH (08:28)
[2022-03-10] MEDS: TAMSULOSIN 0.4 MG CAP PO SCH (08:29)
[2022-03-10] MEDS: LEVEMIR (INSULIN DETEMIR) 1 UNITS/0.01ML SC SCH (08:29)
[2022-03-10] MEDS: GABAPENTIN 300 MG CAP PO SCH ×4 (08:29→20:56)
[2022-03-10] MEDS: INSULIN LISPRO (NovoLOG) PER UNIT SC SCH ×4 (08:29→20:47)
[2022-03-10] MEDS: ASPIRIN 81MG ENTERIC TABLET PO SCH (08:29)
[2022-03-10] MEDS ORDERED: POTASSIUM CHLORIDE 10MEQ SR TABLET PO ONE (08:30)
[2022-03-10] MEDS: DIMETHICONE 2% OINTMENT(VANICREAM) 70GM TUBE TOP SCH ×2 (08:36→20:57)
[2022-03-10] MEDS: ACETAMINOPHEN TAB 650MG DOSE (2X325MG) PO PRN (09:41)
[2022-03-10 14:00] VITALS: BP 131/54
[2022-03-10 20:29] VITALS: BP 121/50
[2022-03-10] MEDS: REMDESIVIR 100 MG in NS 250 ML IV SCH (20:56)
[2022-03-10] MEDS: ATORVASTATIN 20 MG TAB PO SCH (20:56)
[2022-03-10] MEDS: SODIUM CHLORIDE 0.9% INJ 10 ML SYR IV SCH (20:57)
[2022-03-11 06:00] VITALS: BP 122/55
[2022-03-11 06:28] LABS: HEMATOCRIT 39.7 % (42.0-52.0); HEMOGLOBIN 12.9 g/dl (13.5-17.5); MEAN CORPUSCULAR HGB CONC 32.5 g/dl (32.0-36.5); MEAN CORPUSCULAR VOLUME 86.1 fl (80.0-96.0); PLATELET COUNT, AUTOMATED 119 10^3/uL (150-450); RED BLOOD COUNT 4.61 10^6/uL (4.30-6.10); WHITE BLOOD COUNT 5.8 10^3/uL (4.0-10.0)
[2022-03-11 07:06] LABS: ALBUMIN 2.4 GM/DL (3.2-5.2); ALT/SGPT 141 U/L (12-78); BILIRUBIN,TOTAL 0.6 MG/DL (0.2-1.0); BLOOD UREA NITROGEN 15 MG/DL (7-18); CALCIUM LEVEL 7.6 MG/DL (8.8-10.2); CARBON DIOXIDE LEVEL 24 MEQ/L (21-32); CHLORIDE LEVEL 108 MEQ/L (98-107); CREATININE FOR GFR 0.69 MG/DL (0.70-1.30); GLOMERULAR FILTRATION RATE > 60.0 (>49); GLUCOSE, FASTING 128 MG/DL (70-100); POTASSIUM SERUM 3.6 MEQ/L (3.5-5.1); SODIUM LEVEL 138 MEQ/L (136-145); TOTAL PROTEIN 5.3 GM/DL (6.4-8.2)
[2022-03-11] MEDS: INSULIN LISPRO (NovoLOG) PER UNIT SC SCH ×4 (09:13→20:24)
[2022-03-11] MEDS: ENOXAPARIN 40MG/0.4ML SYRINGE (J1650 PER 10MG) SC SCH (09:13)
[2022-03-11] MEDS: LEVEMIR (INSULIN DETEMIR) 1 UNITS/0.01ML SC SCH (09:13)
[2022-03-11] MEDS: GABAPENTIN 300 MG CAP PO SCH ×4 (09:14→20:23)
[2022-03-11] MEDS: ASPIRIN 81MG ENTERIC TABLET PO SCH (09:14)
[2022-03-11] MEDS: TAMSULOSIN 0.4 MG CAP PO SCH (09:14)
[2022-03-11] MEDS: DIMETHICONE 2% OINTMENT(VANICREAM) 70GM TUBE TOP SCH ×2 (09:15→20:24)
[2022-03-11 14:00] VITALS: BP 138/69
[2022-03-11] MEDS: ATORVASTATIN 20 MG TAB PO SCH (20:23)
[2022-03-12 06:09] LABS: HEMATOCRIT 41.7 % (42.0-52.0); HEMOGLOBIN 13.9 g/dl (13.5-17.5); MEAN CORPUSCULAR HGB CONC 33.3 g/dl (32.0-36.5); MEAN CORPUSCULAR VOLUME 84.1 fl (80.0-96.0); PLATELET COUNT, AUTOMATED 145 10^3/uL (150-450); RED BLOOD COUNT 4.96 10^6/uL (4.30-6.10); WHITE BLOOD COUNT 6.1 10^3/uL (4.0-10.0)
[2022-03-12 06:19] VITALS: BP 137/70
[2022-03-12 07:05] LABS: ALBUMIN 2.5 GM/DL (3.2-5.2); ALT/SGPT 140 U/L (12-78); BILIRUBIN,TOTAL 0.9 MG/DL (0.2-1.0); BLOOD UREA NITROGEN 11 MG/DL (7-18); CALCIUM LEVEL 7.9 MG/DL (8.8-10.2); CARBON DIOXIDE LEVEL 22 MEQ/L (21-32); CHLORIDE LEVEL 106 MEQ/L (98-107); CREATININE FOR GFR 0.64 MG/DL (0.70-1.30); GLOMERULAR FILTRATION RATE > 60.0 (>49); GLUCOSE, FASTING 168 MG/DL (70-100); POTASSIUM SERUM 3.8 MEQ/L (3.5-5.1); SODIUM LEVEL 137 MEQ/L (136-145); TOTAL PROTEIN 5.6 GM/DL (6.4-8.2)
[2022-03-12] MEDS: INSULIN LISPRO (NovoLOG) PER UNIT SC SCH ×4 (09:29→23:22)
[2022-03-12] MEDS: DIMETHICONE 2% OINTMENT(VANICREAM) 70GM TUBE TOP SCH ×2 (09:29→23:13)
[2022-03-12] MEDS: LEVEMIR (INSULIN DETEMIR) 1 UNITS/0.01ML SC SCH (09:30)
[2022-03-12] MEDS: ASPIRIN 81MG ENTERIC TABLET PO SCH (09:30)
[2022-03-12] MEDS: TAMSULOSIN 0.4 MG CAP PO SCH (09:30)
[2022-03-12] MEDS: ENOXAPARIN 40MG/0.4ML SYRINGE (J1650 PER 10MG) SC SCH (09:30)
[2022-03-12] MEDS: GABAPENTIN 300 MG CAP PO SCH ×4 (09:30→23:12)
[2022-03-12] MEDS: ATORVASTATIN 20 MG TAB PO SCH (23:12)
[2022-03-13 06:36] VITALS: BP 121/63
[2022-03-13 07:22] LABS: HEMATOCRIT 41.1 % (42.0-52.0); HEMOGLOBIN 13.8 g/dl (13.5-17.5); MEAN CORPUSCULAR HEMOGLOBIN 28.3 pg (27.0-33.0); MEAN CORPUSCULAR HGB CONC 33.6 g/dl (32.0-36.5); MEAN CORPUSCULAR VOLUME 84.4 fl (80.0-96.0); PLATELET COUNT, AUTOMATED 158 10^3/uL (150-450); RED BLOOD COUNT 4.87 10^6/uL (4.30-6.10); WHITE BLOOD COUNT 6.6 10^3/uL (4.0-10.0)
[2022-03-13 07:57] LABS: ALBUMIN 2.6 GM/DL (3.2-5.2); ALT/SGPT 119 U/L (12-78); BILIRUBIN,TOTAL 0.9 MG/DL (0.2-1.0); BLOOD UREA NITROGEN 10 MG/DL (7-18); CALCIUM LEVEL 8.5 MG/DL (8.8-10.2); CARBON DIOXIDE LEVEL 23 MEQ/L (21-32); CHLORIDE LEVEL 105 MEQ/L (98-107); GLOMERULAR FILTRATION RATE > 60.0 (>49); GLUCOSE, FASTING 176 MG/DL (70-100); POTASSIUM SERUM 3.7 MEQ/L (3.5-5.1); SODIUM LEVEL 136 MEQ/L (136-145); TOTAL PROTEIN 5.4 GM/DL (6.4-8.2)
[2022-03-13] MEDS: INSULIN LISPRO (NovoLOG) PER UNIT SC SCH ×4 (08:52→21:00)
[2022-03-13] MEDS: ENOXAPARIN 40MG/0.4ML SYRINGE (J1650 PER 10MG) SC SCH (08:53)
[2022-03-13] MEDS: LEVEMIR (INSULIN DETEMIR) 1 UNITS/0.01ML SC SCH (08:53)
[2022-03-13] MEDS: ASPIRIN 81MG ENTERIC TABLET PO SCH (08:54)
[2022-03-13] MEDS: TAMSULOSIN 0.4 MG CAP PO SCH (08:54)
[2022-03-13] MEDS: GABAPENTIN 300 MG CAP PO SCH ×4 (08:54→21:22)
[2022-03-13] MEDS: DIMETHICONE 2% OINTMENT(VANICREAM) 70GM TUBE TOP SCH ×2 (08:55→21:21)
[2022-03-13 20:45] VITALS: BP 128/52
[2022-03-13] MEDS: ATORVASTATIN 20 MG TAB PO SCH (21:22)
[2022-03-14 06:00] VITALS: BP 116/52
[2022-03-14] MEDS: INSULIN LISPRO (NovoLOG) PER UNIT SC SCH ×4 (09:20→20:10)
[2022-03-14] MEDS: LEVEMIR (INSULIN DETEMIR) 1 UNITS/0.01ML SC SCH (09:20)
[2022-03-14] MEDS: ASPIRIN 81MG ENTERIC TABLET PO SCH (09:20)
[2022-03-14] MEDS: GABAPENTIN 300 MG CAP PO SCH ×4 (09:20→22:14)
[2022-03-14] MEDS: DIMETHICONE 2% OINTMENT(VANICREAM) 70GM TUBE TOP SCH ×2 (09:21→22:15)
[2022-03-14] MEDS: ENOXAPARIN 40MG/0.4ML SYRINGE (J1650 PER 10MG) SC SCH (09:21)
[2022-03-14] MEDS: TAMSULOSIN 0.4 MG CAP PO SCH (09:21)
[2022-03-14] MEDS: ATORVASTATIN 20 MG TAB PO SCH (22:14)
[2022-03-15 06:00] VITALS: BP 143/68
[2022-03-15] MEDS: ENOXAPARIN 40MG/0.4ML SYRINGE (J1650 PER 10MG) SC SCH (08:03)
[2022-03-15] MEDS: LEVEMIR (INSULIN DETEMIR) 1 UNITS/0.01ML SC SCH (08:04)
[2022-03-15] MEDS: ASPIRIN 81MG ENTERIC TABLET PO SCH (08:04)
[2022-03-15] MEDS: INSULIN LISPRO (NovoLOG) PER UNIT SC SCH ×4 (08:04→21:53)
[2022-03-15] MEDS: TAMSULOSIN 0.4 MG CAP PO SCH (08:04)
[2022-03-15] MEDS: GABAPENTIN 300 MG CAP PO SCH ×4 (08:04→21:52)
[2022-03-15] MEDS: DIMETHICONE 2% OINTMENT(VANICREAM) 70GM TUBE TOP SCH ×2 (08:05→21:53)
[2022-03-15] MEDS: ATORVASTATIN 20 MG TAB PO SCH (21:53)
[2022-03-16 06:00] VITALS: BP 155/80
[2022-03-16 06:41] VITALS: BP 149/58
[2022-03-16] MEDS: DIMETHICONE 2% OINTMENT(VANICREAM) 70GM TUBE TOP SCH ×2 (09:24→21:33)
[2022-03-16] MEDS: INSULIN LISPRO (NovoLOG) PER UNIT SC SCH ×4 (09:24→21:35)
[2022-03-16] MEDS: ENOXAPARIN 40MG/0.4ML SYRINGE (J1650 PER 10MG) SC SCH (09:25)
[2022-03-16] MEDS: LEVEMIR (INSULIN DETEMIR) 1 UNITS/0.01ML SC SCH (09:25)
[2022-03-16] MEDS: GABAPENTIN 300 MG CAP PO SCH ×4 (09:26→21:33)
[2022-03-16] MEDS: ASPIRIN 81MG ENTERIC TABLET PO SCH (09:26)
[2022-03-16] MEDS: TAMSULOSIN 0.4 MG CAP PO SCH (09:26)
[2022-03-16] MEDS: ATORVASTATIN 20 MG TAB PO SCH (21:33)
[2022-03-17 06:21] VITALS: BP 142/47
[2022-03-17] MEDS: GABAPENTIN 300 MG CAP PO SCH ×4 (08:49→20:53)
[2022-03-17] MEDS: TAMSULOSIN 0.4 MG CAP PO SCH (08:49)
[2022-03-17] MEDS: ASPIRIN 81MG ENTERIC TABLET PO SCH (08:49)
[2022-03-17] MEDS: LEVEMIR (INSULIN DETEMIR) 1 UNITS/0.01ML SC SCH (08:50)
[2022-03-17] MEDS: ENOXAPARIN 40MG/0.4ML SYRINGE (J1650 PER 10MG) SC SCH (08:50)
[2022-03-17] MEDS: INSULIN LISPRO (NovoLOG) PER UNIT SC SCH ×4 (08:51→20:53)
[2022-03-17] MEDS: DIMETHICONE 2% OINTMENT(VANICREAM) 70GM TUBE TOP SCH ×2 (08:52→20:54)
[2022-03-17] MEDS: ATORVASTATIN 20 MG TAB PO SCH (20:53)
[2022-03-18 06:00] VITALS: BP 157/84
[2022-03-18] MEDS: ASPIRIN 81MG ENTERIC TABLET PO SCH (08:52)
[2022-03-18] MEDS: TAMSULOSIN 0.4 MG CAP PO SCH (08:52)
[2022-03-18] MEDS: GABAPENTIN 300 MG CAP PO SCH ×4 (08:52→20:46)
[2022-03-18] MEDS: INSULIN LISPRO (NovoLOG) PER UNIT SC SCH ×4 (08:53→20:46)
[2022-03-18] MEDS: LEVEMIR (INSULIN DETEMIR) 1 UNITS/0.01ML SC SCH (08:53)
[2022-03-18] MEDS: ENOXAPARIN 40MG/0.4ML SYRINGE (J1650 PER 10MG) SC SCH (08:54)
[2022-03-18] MEDS: DIMETHICONE 2% OINTMENT(VANICREAM) 70GM TUBE TOP SCH ×2 (08:55→20:47)
[2022-03-18 10:38] LABS: BASO # 0.1 10^3/uL (0.0-0.2); BASO % 0.7 % (0.0-1.0); EOS # 0.2 10^3/uL (0.0-0.5); EOS % 2.4 % (0.0-3.0); HEMATOCRIT 40.7 % (42.0-52.0); HEMOGLOBIN 13.1 g/dl (13.5-17.5); LYMPH % 14.2 % (24.0-44.0); MEAN CORPUSCULAR HEMOGLOBIN 27.8 pg (27.0-33.0); MEAN CORPUSCULAR HGB CONC 32.2 g/dl (32.0-36.5); MEAN CORPUSCULAR VOLUME 86.2 fl (80.0-96.0); MONO # 0.7 10^3/uL (0.0-0.8); MONO % 9.5 % (2.0-8.0); NEUTROPHILS # 5.2 10^3/uL (1.5-8.5); NEUTROPHILS % 72.6 % (36.0-66.0); PLATELET COUNT, AUTOMATED 259 10^3/uL (150-450); RED BLOOD COUNT 4.72 10^6/uL (4.30-6.10); WHITE BLOOD COUNT 7.2 10^3/uL (4.0-10.0)
[2022-03-18 11:28] LABS: ALBUMIN 2.4 GM/DL (3.2-5.2); ALT/SGPT 115 U/L (12-78); BILIRUBIN,TOTAL 0.4 MG/DL (0.2-1.0); BLOOD UREA NITROGEN 14 MG/DL (7-18); CALCIUM LEVEL 8.9 MG/DL (8.8-10.2); CARBON DIOXIDE LEVEL 27 MEQ/L (21-32); CHLORIDE LEVEL 107 MEQ/L (98-107); GLOMERULAR FILTRATION RATE > 60.0 (>49); GLUCOSE, FASTING 372 MG/DL (70-100); MAGNESIUM LEVEL 1.5 MG/DL (1.8-2.4); POTASSIUM SERUM 3.4 MEQ/L (3.5-5.1); SODIUM LEVEL 139 MEQ/L (136-145); TOTAL PROTEIN 5.6 GM/DL (6.4-8.2)
[2022-03-18] MEDS ORDERED: POTASSIUM CHLORIDE 10MEQ SR TABLET PO ONE (12:00)
[2022-03-18] MEDS: ATORVASTATIN 20 MG TAB PO SCH (20:46)
[2022-03-19 06:29] VITALS: BP 152/69
[2022-03-19] MEDS: GABAPENTIN 300 MG CAP PO SCH ×4 (08:37→20:44)
[2022-03-19] MEDS: TAMSULOSIN 0.4 MG CAP PO SCH (08:37)
[2022-03-19] MEDS: ENOXAPARIN 40MG/0.4ML SYRINGE (J1650 PER 10MG) SC SCH (08:37)
[2022-03-19] MEDS: ASPIRIN 81MG ENTERIC TABLET PO SCH (08:37)
[2022-03-19] MEDS: LEVEMIR (INSULIN DETEMIR) 1 UNITS/0.01ML SC SCH (08:37)
[2022-03-19] MEDS: DIMETHICONE 2% OINTMENT(VANICREAM) 70GM TUBE TOP SCH ×2 (08:38→20:44)
[2022-03-19] MEDS: INSULIN LISPRO (NovoLOG) PER UNIT SC SCH ×4 (08:38→20:44)
[2022-03-19] MEDS: ATORVASTATIN 20 MG TAB PO SCH (20:44)
[2022-03-20 06:00] VITALS: BP 120/71
[2022-03-20] MEDS: LEVEMIR (INSULIN DETEMIR) 1 UNITS/0.01ML SC SCH (08:22)
[2022-03-20] MEDS: GABAPENTIN 300 MG CAP PO SCH ×4 (08:23→20:58)
[2022-03-20] MEDS: INSULIN LISPRO (NovoLOG) PER UNIT SC SCH ×4 (08:23→20:59)
[2022-03-20] MEDS: ENOXAPARIN 40MG/0.4ML SYRINGE (J1650 PER 10MG) SC SCH (08:23)
[2022-03-20] MEDS: TAMSULOSIN 0.4 MG CAP PO SCH (08:23)
[2022-03-20] MEDS: ASPIRIN 81MG ENTERIC TABLET PO SCH (08:23)
[2022-03-20] MEDS: DIMETHICONE 2% OINTMENT(VANICREAM) 70GM TUBE TOP SCH ×2 (08:25→20:59)
[2022-03-20] MEDS: ATORVASTATIN 20 MG TAB PO SCH (20:58)
[2022-03-21 06:00] VITALS: BP 157/70
[2022-03-21] MEDS: ENOXAPARIN 40MG/0.4ML SYRINGE (J1650 PER 10MG) SC SCH (08:22)
[2022-03-21] MEDS: INSULIN LISPRO (NovoLOG) PER UNIT SC SCH ×4 (08:23→21:00)
[2022-03-21] MEDS: ASPIRIN 81MG ENTERIC TABLET PO SCH (08:23)
[2022-03-21] MEDS: GABAPENTIN 300 MG CAP PO SCH ×4 (08:23→21:35)
[2022-03-21] MEDS: LEVEMIR (INSULIN DETEMIR) 1 UNITS/0.01ML SC SCH (08:23)
[2022-03-21] MEDS: TAMSULOSIN 0.4 MG CAP PO SCH (08:23)
[2022-03-21] MEDS: DIMETHICONE 2% OINTMENT(VANICREAM) 70GM TUBE TOP SCH ×2 (08:24→21:35)
[2022-03-21] MEDS: ATORVASTATIN 20 MG TAB PO SCH (21:35)
[2022-03-22 05:32] VITALS: BP 135/62
[2022-03-22] MEDS: TAMSULOSIN 0.4 MG CAP PO SCH (08:36)
[2022-03-22] MEDS: ASPIRIN 81MG ENTERIC TABLET PO SCH (08:36)
[2022-03-22] MEDS: GABAPENTIN 300 MG CAP PO SCH ×4 (08:36→21:14)
[2022-03-22] MEDS: ENOXAPARIN 40MG/0.4ML SYRINGE (J1650 PER 10MG) SC SCH (08:37)
[2022-03-22] MEDS: DIMETHICONE 2% OINTMENT(VANICREAM) 70GM TUBE TOP SCH ×2 (08:37→21:14)
[2022-03-22] MEDS: INSULIN LISPRO (NovoLOG) PER UNIT SC SCH ×4 (08:37→19:39)
[2022-03-22] MEDS: LEVEMIR (INSULIN DETEMIR) 1 UNITS/0.01ML SC SCH (08:37)
[2022-03-22] MEDS: ATORVASTATIN 20 MG TAB PO SCH (21:14)
[2022-03-23 06:00] VITALS: BP 151/64
[2022-03-23] MEDS: ENOXAPARIN 40MG/0.4ML SYRINGE (J1650 PER 10MG) SC SCH (09:00)
[2022-03-23] MEDS: TAMSULOSIN 0.4 MG CAP PO SCH (09:02)
[2022-03-23] MEDS: ASPIRIN 81MG ENTERIC TABLET PO SCH (09:02)
[2022-03-23] MEDS: LEVEMIR (INSULIN DETEMIR) 1 UNITS/0.01ML SC SCH ×2 (09:02→20:20)
[2022-03-23] MEDS: GABAPENTIN 300 MG CAP PO SCH ×4 (09:02→20:21)
[2022-03-23] MEDS: INSULIN LISPRO (NovoLOG) PER UNIT SC SCH ×4 (09:03→20:21)
[2022-03-23] MEDS: DIMETHICONE 2% OINTMENT(VANICREAM) 70GM TUBE TOP SCH ×2 (09:05→21:53)
[2022-03-23] MEDS: ATORVASTATIN 20 MG TAB PO SCH (20:21)
[2022-03-24 07:08] VITALS: BP 156/64
[2022-03-24] MEDS: INSULIN LISPRO (NovoLOG) PER UNIT SC SCH ×6 (07:30→21:50)
[2022-03-24] MEDS: LEVEMIR (INSULIN DETEMIR) 1 UNITS/0.01ML SC SCH ×3 (09:00→21:50)
[2022-03-24] MEDS: ENOXAPARIN 40MG/0.4ML SYRINGE (J1650 PER 10MG) SC SCH ×2 (09:00→09:29)
[2022-03-24] MEDS: TAMSULOSIN 0.4 MG CAP PO SCH (09:28)
[2022-03-24] MEDS: ASPIRIN 81MG ENTERIC TABLET PO SCH (09:28)
[2022-03-24] MEDS: GABAPENTIN 300 MG CAP PO SCH ×5 (09:28→21:49)
[2022-03-24] MEDS: DIMETHICONE 2% OINTMENT(VANICREAM) 70GM TUBE TOP SCH ×2 (09:30→21:52)
[2022-03-24] MEDS: ACETAMINOPHEN TAB 650MG DOSE (2X325MG) PO PRN (21:49)
[2022-03-24] MEDS: ATORVASTATIN 20 MG TAB PO SCH (21:49)
[2022-03-25 06:00] VITALS: BP 152/66
[2022-03-25] MEDS: LEVEMIR (INSULIN DETEMIR) 1 UNITS/0.01ML SC SCH ×2 (09:23→20:45)
[2022-03-25] MEDS: INSULIN LISPRO (NovoLOG) PER UNIT SC SCH ×4 (09:24→20:16)
[2022-03-25] MEDS: ENOXAPARIN 40MG/0.4ML SYRINGE (J1650 PER 10MG) SC SCH (09:24)
[2022-03-25] MEDS: ASPIRIN 81MG ENTERIC TABLET PO SCH (09:25)
[2022-03-25] MEDS: TAMSULOSIN 0.4 MG CAP PO SCH (09:25)
[2022-03-25] MEDS: DIMETHICONE 2% OINTMENT(VANICREAM) 70GM TUBE TOP SCH ×2 (09:25→20:44)
[2022-03-25] MEDS: GABAPENTIN 300 MG CAP PO SCH ×4 (09:25→20:44)
[2022-03-25] MEDS: ATORVASTATIN 20 MG TAB PO SCH (20:44)
[2022-03-26 06:00] VITALS: BP 145/63
[2022-03-26] MEDS: ASPIRIN 81MG ENTERIC TABLET PO SCH (08:55)
[2022-03-26] MEDS: GABAPENTIN 300 MG CAP PO SCH ×5 (08:55→21:00)
[2022-03-26] MEDS: TAMSULOSIN 0.4 MG CAP PO SCH (08:55)
[2022-03-26] MEDS: ENOXAPARIN 40MG/0.4ML SYRINGE (J1650 PER 10MG) SC SCH ×2 (08:55→09:00)
[2022-03-26] MEDS: INSULIN LISPRO (NovoLOG) PER UNIT SC SCH ×5 (08:56→21:00)
[2022-03-26] MEDS: LEVEMIR (INSULIN DETEMIR) 1 UNITS/0.01ML SC SCH ×2 (08:57→21:00)
[2022-03-26] MEDS: DIMETHICONE 2% OINTMENT(VANICREAM) 70GM TUBE TOP SCH ×2 (08:58→21:00)
[2022-03-26] MEDS: ATORVASTATIN 20 MG TAB PO SCH (21:00)
[2022-03-27 04:59] VITALS: BP 145/79
[2022-03-27] MEDS: INSULIN LISPRO (NovoLOG) PER UNIT SC SCH ×5 (07:30→21:00)
[2022-03-27] MEDS: ENOXAPARIN 40MG/0.4ML SYRINGE (J1650 PER 10MG) SC SCH (09:00)
[2022-03-27] MEDS: LEVEMIR (INSULIN DETEMIR) 1 UNITS/0.01ML SC SCH ×3 (09:00→21:30)
[2022-03-27] MEDS: ASPIRIN 81MG ENTERIC TABLET PO SCH (09:49)
[2022-03-27] MEDS: TAMSULOSIN 0.4 MG CAP PO SCH (09:49)
[2022-03-27] MEDS: GABAPENTIN 300 MG CAP PO SCH ×4 (09:49→21:30)
[2022-03-27] MEDS: DIMETHICONE 2% OINTMENT(VANICREAM) 70GM TUBE TOP SCH ×2 (09:50→21:32)
[2022-03-27] MEDS: ATORVASTATIN 20 MG TAB PO SCH (21:30)
[2022-03-28 06:00] VITALS: BP 149/74
[2022-03-28] MEDS: INSULIN LISPRO (NovoLOG) PER UNIT SC SCH ×4 (07:30→21:55)
[2022-03-28] MEDS: GABAPENTIN 300 MG CAP PO SCH ×4 (08:25→21:49)
[2022-03-28] MEDS: ENOXAPARIN 40MG/0.4ML SYRINGE (J1650 PER 10MG) SC SCH (08:25)
[2022-03-28] MEDS: LEVEMIR (INSULIN DETEMIR) 1 UNITS/0.01ML SC SCH ×2 (08:25→21:50)
[2022-03-28] MEDS: ASPIRIN 81MG ENTERIC TABLET PO SCH (08:25)
[2022-03-28] MEDS: TAMSULOSIN 0.4 MG CAP PO SCH (08:25)
[2022-03-28] MEDS: DIMETHICONE 2% OINTMENT(VANICREAM) 70GM TUBE TOP SCH ×2 (08:26→21:50)
[2022-03-28] MEDS: ATORVASTATIN 20 MG TAB PO SCH (21:49)
[2022-03-29 06:00] VITALS: BP 148/71
[2022-03-29] MEDS: LEVEMIR (INSULIN DETEMIR) 1 UNITS/0.01ML SC SCH ×2 (07:38→20:07)
[2022-03-29] MEDS: INSULIN LISPRO (NovoLOG) PER UNIT SC SCH ×4 (07:38→20:07)
[2022-03-29] MEDS: ASPIRIN 81MG ENTERIC TABLET PO SCH (07:39)
[2022-03-29] MEDS: GABAPENTIN 300 MG CAP PO SCH ×4 (07:39→20:07)
[2022-03-29] MEDS: TAMSULOSIN 0.4 MG CAP PO SCH (07:39)
[2022-03-29] MEDS: ENOXAPARIN 40MG/0.4ML SYRINGE (J1650 PER 10MG) SC SCH (07:39)
[2022-03-29] MEDS: DIMETHICONE 2% OINTMENT(VANICREAM) 70GM TUBE TOP SCH ×2 (07:40→20:08)
[2022-03-29] MEDS: ATORVASTATIN 20 MG TAB PO SCH (20:07)
[2022-03-30 06:00] VITALS: BP_SYST 119; BP_SYST 148; BP_DIAS 67; BP_DIAS 71
[2022-03-30] MEDS: ENOXAPARIN 40MG/0.4ML SYRINGE (J1650 PER 10MG) SC SCH ×2 (08:39→08:47)
[2022-03-30] MEDS: INSULIN LISPRO (NovoLOG) PER UNIT SC SCH ×4 (08:40→20:33)
[2022-03-30] MEDS: LEVEMIR (INSULIN DETEMIR) 1 UNITS/0.01ML SC SCH ×2 (08:40→20:44)
[2022-03-30] MEDS: GABAPENTIN 300 MG CAP PO SCH ×4 (08:41→20:44)
[2022-03-30] MEDS: ASPIRIN 81MG ENTERIC TABLET PO SCH (08:41)
[2022-03-30] MEDS: TAMSULOSIN 0.4 MG CAP PO SCH (08:41)
[2022-03-30] MEDS: DIMETHICONE 2% OINTMENT(VANICREAM) 70GM TUBE TOP SCH ×2 (08:45→20:45)
[2022-03-30] MEDS: ATORVASTATIN 20 MG TAB PO SCH (20:44)
[2022-03-31 06:00] VITALS: BP 148/69
[2022-03-31] MEDS: INSULIN LISPRO (NovoLOG) PER UNIT SC SCH ×4 (07:30→21:34)
[2022-03-31] MEDS: DIMETHICONE 2% OINTMENT(VANICREAM) 70GM TUBE TOP SCH ×2 (09:08→21:34)
[2022-03-31] MEDS: ASPIRIN 81MG ENTERIC TABLET PO SCH (09:08)
[2022-03-31] MEDS: ENOXAPARIN 40MG/0.4ML SYRINGE (J1650 PER 10MG) SC SCH (09:08)
[2022-03-31] MEDS: TAMSULOSIN 0.4 MG CAP PO SCH (09:08)
[2022-03-31] MEDS: GABAPENTIN 300 MG CAP PO SCH ×4 (09:09→21:33)
[2022-03-31] MEDS: LEVEMIR (INSULIN DETEMIR) 1 UNITS/0.01ML SC SCH ×2 (09:09→21:34)
[2022-03-31] MEDS: ATORVASTATIN 20 MG TAB PO SCH (21:33)
[2022-03-31] MEDS: ACETAMINOPHEN TAB 650MG DOSE (2X325MG) PO PRN (21:35)
[2022-04-01 06:00] VITALS: BP 149/69
[2022-04-01] MEDS: INSULIN LISPRO (NovoLOG) PER UNIT SC SCH ×5 (07:30→20:41)
[2022-04-01] MEDS: ENOXAPARIN 40MG/0.4ML SYRINGE (J1650 PER 10MG) SC SCH (09:00)
[2022-04-01] MEDS: GABAPENTIN 300 MG CAP PO SCH ×4 (09:19→20:41)
[2022-04-01] MEDS: ASPIRIN 81MG ENTERIC TABLET PO SCH (09:19)
[2022-04-01] MEDS: TAMSULOSIN 0.4 MG CAP PO SCH (09:19)
[2022-04-01] MEDS: LEVEMIR (INSULIN DETEMIR) 1 UNITS/0.01ML SC SCH ×2 (09:20→20:41)
[2022-04-01] MEDS: NYSTATIN 100,000 UNITS/GM TOPICAL PWD 15 GM TOP SCH ×2 (09:21→20:42)
[2022-04-01] MEDS: DIMETHICONE 2% OINTMENT(VANICREAM) 70GM TUBE TOP SCH ×2 (09:21→20:42)
[2022-04-01] MEDS: ATORVASTATIN 20 MG TAB PO SCH (20:41)
[2022-04-01] MEDS: ACETAMINOPHEN TAB 650MG DOSE (2X325MG) PO PRN (20:43)
[2022-04-02 06:00] VITALS: BP 143/60
[2022-04-02] MEDS: ASPIRIN 81MG ENTERIC TABLET PO SCH (08:13)
[2022-04-02] MEDS: TAMSULOSIN 0.4 MG CAP PO SCH (08:13)
[2022-04-02] MEDS: GABAPENTIN 300 MG CAP PO SCH ×4 (08:14→21:25)
[2022-04-02] MEDS: LEVEMIR (INSULIN DETEMIR) 1 UNITS/0.01ML SC SCH ×2 (08:15→21:26)
[2022-04-02] MEDS: INSULIN LISPRO (NovoLOG) PER UNIT SC SCH ×4 (08:16→21:00)
[2022-04-02] MEDS: NYSTATIN 100,000 UNITS/GM TOPICAL PWD 15 GM TOP SCH ×2 (08:18→21:26)
[2022-04-02] MEDS: DIMETHICONE 2% OINTMENT(VANICREAM) 70GM TUBE TOP SCH ×2 (08:18→21:26)
[2022-04-02] MEDS: ENOXAPARIN 40MG/0.4ML SYRINGE (J1650 PER 10MG) SC SCH (08:53)
[2022-04-02] MEDS: ATORVASTATIN 20 MG TAB PO SCH (21:25)
[2022-04-02] MEDS: ACETAMINOPHEN TAB 650MG DOSE (2X325MG) PO PRN (21:28)
[2022-04-03 05:26] VITALS: BP 139/66
[2022-04-03] MEDS: INSULIN LISPRO (NovoLOG) PER UNIT SC SCH ×4 (07:30→20:50)
[2022-04-03] MEDS: GABAPENTIN 300 MG CAP PO SCH ×4 (08:44→20:50)
[2022-04-03] MEDS: TAMSULOSIN 0.4 MG CAP PO SCH (08:46)
[2022-04-03] MEDS: ASPIRIN 81MG ENTERIC TABLET PO SCH (08:47)
[2022-04-03] MEDS: LEVEMIR (INSULIN DETEMIR) 1 UNITS/0.01ML SC SCH ×2 (08:47→20:51)
[2022-04-03] MEDS: NYSTATIN 100,000 UNITS/GM TOPICAL PWD 15 GM TOP SCH ×2 (08:48→20:51)
[2022-04-03] MEDS: DIMETHICONE 2% OINTMENT(VANICREAM) 70GM TUBE TOP SCH ×2 (08:48→20:51)
[2022-04-03] MEDS: ENOXAPARIN 40MG/0.4ML SYRINGE (J1650 PER 10MG) SC SCH (08:57)
[2022-04-03] MEDS: ATORVASTATIN 20 MG TAB PO SCH (20:50)
[2022-04-03] MEDS: ACETAMINOPHEN TAB 650MG DOSE (2X325MG) PO PRN (20:52)
[2022-04-04 05:40] VITALS: BP 136/57
[2022-04-04] MEDS: INSULIN LISPRO (NovoLOG) PER UNIT SC SCH ×5 (08:10→20:56)
[2022-04-04] MEDS: LEVEMIR (INSULIN DETEMIR) 1 UNITS/0.01ML SC SCH ×2 (08:10→22:46)
[2022-04-04] MEDS: GABAPENTIN 300 MG CAP PO SCH ×4 (08:10→21:14)
[2022-04-04] MEDS: ASPIRIN 81MG ENTERIC TABLET PO SCH (08:11)
[2022-04-04] MEDS: ENOXAPARIN 40MG/0.4ML SYRINGE (J1650 PER 10MG) SC SCH (08:11)
[2022-04-04] MEDS: TAMSULOSIN 0.4 MG CAP PO SCH (08:11)
[2022-04-04] MEDS: NYSTATIN 100,000 UNITS/GM TOPICAL PWD 15 GM TOP SCH ×2 (08:12→21:15)
[2022-04-04] MEDS: DIMETHICONE 2% OINTMENT(VANICREAM) 70GM TUBE TOP SCH ×2 (08:13→21:15)
[2022-04-04] MEDS: ATORVASTATIN 20 MG TAB PO SCH (21:14)
[2022-04-05 06:00] VITALS: BP 136/68
[2022-04-05] MEDS: ENOXAPARIN 40MG/0.4ML SYRINGE (J1650 PER 10MG) SC SCH (09:00)
[2022-04-05] MEDS: LEVEMIR (INSULIN DETEMIR) 1 UNITS/0.01ML SC SCH ×2 (09:35→21:03)
[2022-04-05] MEDS: INSULIN LISPRO (NovoLOG) PER UNIT SC SCH ×4 (09:35→21:07)
[2022-04-05] MEDS: GABAPENTIN 300 MG CAP PO SCH ×4 (09:36→21:03)
[2022-04-05] MEDS: TAMSULOSIN 0.4 MG CAP PO SCH (09:36)
[2022-04-05] MEDS: ASPIRIN 81MG ENTERIC TABLET PO SCH (09:36)
[2022-04-05] MEDS: DIMETHICONE 2% OINTMENT(VANICREAM) 70GM TUBE TOP SCH ×2 (09:37→21:04)
[2022-04-05] MEDS: NYSTATIN 100,000 UNITS/GM TOPICAL PWD 15 GM TOP SCH ×2 (09:38→21:04)
[2022-04-05] MEDS: ATORVASTATIN 20 MG TAB PO SCH (21:03)
[2022-04-05] MEDS: ACETAMINOPHEN TAB 650MG DOSE (2X325MG) PO PRN (21:05)
[2022-04-06 06:00] VITALS: BP 125/62
[2022-04-06] MEDS ORDERED: MOM 30ML SUSPENSION UDC PO PRN (07:45)
[2022-04-06] MEDS: ENOXAPARIN 40MG/0.4ML SYRINGE (J1650 PER 10MG) SC SCH (09:00)
[2022-04-06] MEDS: INSULIN LISPRO (NovoLOG) PER UNIT SC SCH ×4 (09:59→20:45)
[2022-04-06] MEDS: LEVEMIR (INSULIN DETEMIR) 1 UNITS/0.01ML SC SCH ×2 (09:59→20:45)
[2022-04-06] MEDS: SENOKOT S TAB PO PRN (10:00)
[2022-04-06] MEDS: ASPIRIN 81MG ENTERIC TABLET PO SCH (10:00)
[2022-04-06] MEDS: DIMETHICONE 2% OINTMENT(VANICREAM) 70GM TUBE TOP SCH ×2 (10:00→20:45)
[2022-04-06] MEDS: GABAPENTIN 300 MG CAP PO SCH ×4 (10:00→20:44)
[2022-04-06] MEDS: TAMSULOSIN 0.4 MG CAP PO SCH (10:00)
[2022-04-06] MEDS: NYSTATIN 100,000 UNITS/GM TOPICAL PWD 15 GM TOP SCH ×2 (10:02→20:45)
[2022-04-06] MEDS: ATORVASTATIN 20 MG TAB PO SCH (20:44)
[2022-04-06] MEDS: ACETAMINOPHEN TAB 650MG DOSE (2X325MG) PO PRN (20:46)
[2022-04-07 06:00] VITALS: BP 160/63
[2022-04-07] MEDS: ASPIRIN 81MG ENTERIC TABLET PO SCH (08:58)
[2022-04-07] MEDS: TAMSULOSIN 0.4 MG CAP PO SCH (08:58)
[2022-04-07] MEDS: GABAPENTIN 300 MG CAP PO SCH ×4 (08:58→21:23)
[2022-04-07] MEDS: ENOXAPARIN 40MG/0.4ML SYRINGE (J1650 PER 10MG) SC SCH (08:59)
[2022-04-07] MEDS: INSULIN LISPRO (NovoLOG) PER UNIT SC SCH ×4 (08:59→21:24)
[2022-04-07] MEDS: LEVEMIR (INSULIN DETEMIR) 1 UNITS/0.01ML SC SCH ×2 (08:59→21:24)
[2022-04-07] MEDS: NYSTATIN 100,000 UNITS/GM TOPICAL PWD 15 GM TOP SCH ×2 (09:00→21:25)
[2022-04-07] MEDS: DIMETHICONE 2% OINTMENT(VANICREAM) 70GM TUBE TOP SCH ×2 (09:00→21:25)
[2022-04-07] MEDS: ATORVASTATIN 20 MG TAB PO SCH (21:23)
[2022-04-07] MEDS: ACETAMINOPHEN TAB 650MG DOSE (2X325MG) PO PRN (21:26)
[2022-04-08 06:00] VITALS: BP 151/53
[2022-04-08] MEDS: NYSTATIN 100,000 UNITS/GM TOPICAL PWD 15 GM TOP SCH ×2 (08:39→20:47)
[2022-04-08] MEDS: DIMETHICONE 2% OINTMENT(VANICREAM) 70GM TUBE TOP SCH ×2 (08:40→20:48)
[2022-04-08] MEDS: LEVEMIR (INSULIN DETEMIR) 1 UNITS/0.01ML SC SCH ×2 (08:40→20:47)
[2022-04-08] MEDS: GABAPENTIN 300 MG CAP PO SCH ×4 (08:41→20:46)
[2022-04-08] MEDS: TAMSULOSIN 0.4 MG CAP PO SCH (08:41)
[2022-04-08] MEDS: INSULIN LISPRO (NovoLOG) PER UNIT SC SCH ×4 (08:41→20:46)
[2022-04-08] MEDS: ASPIRIN 81MG ENTERIC TABLET PO SCH (08:41)
[2022-04-08] MEDS: ENOXAPARIN 40MG/0.4ML SYRINGE (J1650 PER 10MG) SC SCH (08:42)
[2022-04-08 14:00] VITALS: BP 134/62
[2022-04-08] MEDS: ATORVASTATIN 20 MG TAB PO SCH (20:46)
[2022-04-08] MEDS: ACETAMINOPHEN TAB 650MG DOSE (2X325MG) PO PRN (20:49)
[2022-04-09 06:00] VITALS: BP 145/64
[2022-04-09] MEDS: TAMSULOSIN 0.4 MG CAP PO SCH (08:40)
[2022-04-09] MEDS: GABAPENTIN 300 MG CAP PO SCH ×4 (08:40→20:50)
[2022-04-09] MEDS: ASPIRIN 81MG ENTERIC TABLET PO SCH (08:40)
[2022-04-09] MEDS: INSULIN LISPRO (NovoLOG) PER UNIT SC SCH ×4 (08:41→20:47)
[2022-04-09] MEDS: DIMETHICONE 2% OINTMENT(VANICREAM) 70GM TUBE TOP SCH ×2 (08:42→20:52)
[2022-04-09] MEDS: LEVEMIR (INSULIN DETEMIR) 1 UNITS/0.01ML SC SCH ×2 (08:42→20:51)
[2022-04-09] MEDS: ENOXAPARIN 40MG/0.4ML SYRINGE (J1650 PER 10MG) SC SCH ×2 (08:42→08:46)
[2022-04-09] MEDS: NYSTATIN 100,000 UNITS/GM TOPICAL PWD 15 GM TOP SCH ×2 (08:42→20:51)
[2022-04-09] MEDS: ATORVASTATIN 20 MG TAB PO SCH (20:50)
[2022-04-10 06:00] VITALS: BP 142/65
[2022-04-10] MEDS: INSULIN LISPRO (NovoLOG) PER UNIT SC SCH ×3 (08:28→17:01)
[2022-04-10] MEDS: LEVEMIR (INSULIN DETEMIR) 1 UNITS/0.01ML SC SCH ×2 (08:28→23:34)
[2022-04-10] MEDS: DIMETHICONE 2% OINTMENT(VANICREAM) 70GM TUBE TOP SCH ×2 (08:29→23:34)
[2022-04-10] MEDS: TAMSULOSIN 0.4 MG CAP PO SCH (08:29)
[2022-04-10] MEDS: NYSTATIN 100,000 UNITS/GM TOPICAL PWD 15 GM TOP SCH ×2 (08:29→23:35)
[2022-04-10] MEDS: ASPIRIN 81MG ENTERIC TABLET PO SCH (08:29)
[2022-04-10] MEDS: GABAPENTIN 300 MG CAP PO SCH ×4 (08:29→23:33)
[2022-04-10] MEDS: ENOXAPARIN 40MG/0.4ML SYRINGE (J1650 PER 10MG) SC SCH (08:30)
[2022-04-10] MEDS: SENOKOT S TAB PO PRN (23:33)
[2022-04-10] MEDS: ATORVASTATIN 20 MG TAB PO SCH (23:33)
[2022-04-11] MEDS: INSULIN LISPRO (NovoLOG) PER UNIT SC SCH ×5 (00:08→20:34)
[2022-04-11 05:35] VITALS: BP 155/69
[2022-04-11] MEDS: TAMSULOSIN 0.4 MG CAP PO SCH (08:32)
[2022-04-11] MEDS: GABAPENTIN 300 MG CAP PO SCH ×4 (08:32→20:34)
[2022-04-11] MEDS: ASPIRIN 81MG ENTERIC TABLET PO SCH (08:32)
[2022-04-11] MEDS: LEVEMIR (INSULIN DETEMIR) 1 UNITS/0.01ML SC SCH ×2 (08:34→20:33)
[2022-04-11] MEDS: NYSTATIN 100,000 UNITS/GM TOPICAL PWD 15 GM TOP SCH ×2 (08:34→19:54)
[2022-04-11] MEDS: DIMETHICONE 2% OINTMENT(VANICREAM) 70GM TUBE TOP SCH ×2 (08:34→19:54)
[2022-04-11] MEDS: ENOXAPARIN 40MG/0.4ML SYRINGE (J1650 PER 10MG) SC SCH (08:34)
[2022-04-11] MEDS: ATORVASTATIN 20 MG TAB PO SCH (20:34)
[2022-04-12 06:00] VITALS: BP 138/96
[2022-04-12] MEDS: ENOXAPARIN 40MG/0.4ML SYRINGE (J1650 PER 10MG) SC SCH ×2 (10:00→10:06)
[2022-04-12] MEDS: INSULIN LISPRO (NovoLOG) PER UNIT SC SCH ×4 (10:07→21:40)
[2022-04-12] MEDS: GABAPENTIN 300 MG CAP PO SCH ×4 (10:08→21:39)
[2022-04-12] MEDS: LEVEMIR (INSULIN DETEMIR) 1 UNITS/0.01ML SC SCH ×2 (10:08→21:40)
[2022-04-12] MEDS: TAMSULOSIN 0.4 MG CAP PO SCH (10:08)
[2022-04-12] MEDS: ASPIRIN 81MG ENTERIC TABLET PO SCH (10:08)
[2022-04-12] MEDS: NYSTATIN 100,000 UNITS/GM TOPICAL PWD 15 GM TOP SCH ×2 (10:11→21:41)
[2022-04-12] MEDS: DIMETHICONE 2% OINTMENT(VANICREAM) 70GM TUBE TOP SCH ×2 (10:12→21:41)
[2022-04-12] MEDS: ATORVASTATIN 20 MG TAB PO SCH (21:39)
[2022-04-13 06:00] VITALS: BP 157/71
[2022-04-13] MEDS: TAMSULOSIN 0.4 MG CAP PO SCH (08:32)
[2022-04-13] MEDS: ASPIRIN 81MG ENTERIC TABLET PO SCH (08:32)
[2022-04-13] MEDS: GABAPENTIN 300 MG CAP PO SCH ×4 (08:35→21:27)
[2022-04-13] MEDS: LEVEMIR (INSULIN DETEMIR) 1 UNITS/0.01ML SC SCH ×2 (08:37→21:28)
[2022-04-13] MEDS: INSULIN LISPRO (NovoLOG) PER UNIT SC SCH ×4 (08:40→21:28)
[2022-04-13] MEDS: NYSTATIN 100,000 UNITS/GM TOPICAL PWD 15 GM TOP SCH ×2 (08:41→21:28)
[2022-04-13] MEDS: DIMETHICONE 2% OINTMENT(VANICREAM) 70GM TUBE TOP SCH ×2 (08:42→21:29)
[2022-04-13] MEDS: ENOXAPARIN 40MG/0.4ML SYRINGE (J1650 PER 10MG) SC SCH (08:42)
[2022-04-13] MEDS: ATORVASTATIN 20 MG TAB PO SCH (21:27)
[2022-04-14 06:00] VITALS: BP 146/68
[2022-04-14] MEDS: INSULIN LISPRO (NovoLOG) PER UNIT SC SCH ×4 (08:15→21:00)
[2022-04-14] MEDS: LEVEMIR (INSULIN DETEMIR) 1 UNITS/0.01ML SC SCH ×2 (08:16→21:42)
[2022-04-14] MEDS: ASPIRIN 81MG ENTERIC TABLET PO SCH (08:16)
[2022-04-14] MEDS: GABAPENTIN 300 MG CAP PO SCH ×4 (08:18→21:41)
[2022-04-14] MEDS: TAMSULOSIN 0.4 MG CAP PO SCH (08:18)
[2022-04-14] MEDS: DIMETHICONE 2% OINTMENT(VANICREAM) 70GM TUBE TOP SCH ×2 (08:19→21:42)
[2022-04-14] MEDS: NYSTATIN 100,000 UNITS/GM TOPICAL PWD 15 GM TOP SCH ×2 (08:19→21:42)
[2022-04-14] MEDS: ENOXAPARIN 40MG/0.4ML SYRINGE (J1650 PER 10MG) SC SCH (08:21)
[2022-04-14] MEDS ORDERED: MAG SULF 1GM/100ML (MAG RUN) 1 GM in IV 1 EA IV ONE (15:20)
[2022-04-14] MEDS ORDERED: POTASSIUM CHLORIDE 10MEQ SR TABLET PO ONE (15:20)
[2022-04-14] MEDS: ATORVASTATIN 20 MG TAB PO SCH (21:41)
[2022-04-14] MEDS: ACETAMINOPHEN TAB 650MG DOSE (2X325MG) PO PRN (21:43)
[2022-04-15 05:46] VITALS: BP 144/64
[2022-04-15] MEDS: TAMSULOSIN 0.4 MG CAP PO SCH (08:28)
[2022-04-15] MEDS: ASPIRIN 81MG ENTERIC TABLET PO SCH (08:28)
[2022-04-15] MEDS: GABAPENTIN 300 MG CAP PO SCH ×4 (08:29→22:11)
[2022-04-15] MEDS: INSULIN LISPRO (NovoLOG) PER UNIT SC SCH ×4 (08:29→22:13)
[2022-04-15] MEDS: LEVEMIR (INSULIN DETEMIR) 1 UNITS/0.01ML SC SCH ×2 (08:30→22:14)
[2022-04-15] MEDS: ENOXAPARIN 40MG/0.4ML SYRINGE (J1650 PER 10MG) SC SCH ×2 (08:30→08:37)
[2022-04-15] MEDS: NYSTATIN 100,000 UNITS/GM TOPICAL PWD 15 GM TOP SCH ×2 (08:31→22:14)
[2022-04-15] MEDS: DIMETHICONE 2% OINTMENT(VANICREAM) 70GM TUBE TOP SCH ×2 (08:31→22:14)
[2022-04-15] MEDS: ATORVASTATIN 20 MG TAB PO SCH (22:11)
[2022-04-15] MEDS: ACETAMINOPHEN TAB 650MG DOSE (2X325MG) PO PRN (22:15)
[2022-04-16 06:00] VITALS: BP 154/73
[2022-04-16] MEDS: INSULIN LISPRO (NovoLOG) PER UNIT SC SCH ×4 (07:30→21:00)
[2022-04-16] MEDS: ENOXAPARIN 40MG/0.4ML SYRINGE (J1650 PER 10MG) SC SCH (09:00)
[2022-04-16] MEDS: ASPIRIN 81MG ENTERIC TABLET PO SCH (09:23)
[2022-04-16] MEDS: LEVEMIR (INSULIN DETEMIR) 1 UNITS/0.01ML SC SCH ×2 (09:25→21:05)
[2022-04-16] MEDS: GABAPENTIN 300 MG CAP PO SCH ×4 (09:25→21:04)
[2022-04-16] MEDS: TAMSULOSIN 0.4 MG CAP PO SCH (09:25)
[2022-04-16] MEDS: NYSTATIN 100,000 UNITS/GM TOPICAL PWD 15 GM TOP SCH ×2 (09:28→21:05)
[2022-04-16] MEDS: DIMETHICONE 2% OINTMENT(VANICREAM) 70GM TUBE TOP SCH ×2 (09:29→21:06)
[2022-04-16] MEDS: ATORVASTATIN 20 MG TAB PO SCH (21:04)
[2022-04-16] MEDS: ACETAMINOPHEN TAB 650MG DOSE (2X325MG) PO PRN (21:06)
[2022-04-17 06:00] VITALS: BP 136/65
[2022-04-17] MEDS: INSULIN LISPRO (NovoLOG) PER UNIT SC SCH ×4 (07:30→21:49)
[2022-04-17] MEDS: ENOXAPARIN 40MG/0.4ML SYRINGE (J1650 PER 10MG) SC SCH (09:00)
[2022-04-17] MEDS: ASPIRIN 81MG ENTERIC TABLET PO SCH (09:26)
[2022-04-17] MEDS: TAMSULOSIN 0.4 MG CAP PO SCH (09:26)
[2022-04-17] MEDS: GABAPENTIN 300 MG CAP PO SCH ×4 (09:27→21:49)
[2022-04-17] MEDS: DIMETHICONE 2% OINTMENT(VANICREAM) 70GM TUBE TOP SCH ×2 (09:28→21:50)
[2022-04-17] MEDS: LEVEMIR (INSULIN DETEMIR) 1 UNITS/0.01ML SC SCH ×2 (09:28→21:50)
[2022-04-17] MEDS: NYSTATIN 100,000 UNITS/GM TOPICAL PWD 15 GM TOP SCH ×2 (09:29→21:51)
[2022-04-17] MEDS: ATORVASTATIN 20 MG TAB PO SCH (21:49)
[2022-04-18 06:00] VITALS: BP 133/63
[2022-04-18] MEDS: NYSTATIN 100,000 UNITS/GM TOPICAL PWD 15 GM TOP SCH ×2 (08:12→21:04)
[2022-04-18] MEDS: GABAPENTIN 300 MG CAP PO SCH ×4 (08:13→21:02)
[2022-04-18] MEDS: ASPIRIN 81MG ENTERIC TABLET PO SCH (08:13)
[2022-04-18] MEDS: LEVEMIR (INSULIN DETEMIR) 1 UNITS/0.01ML SC SCH ×2 (08:13→21:03)
[2022-04-18] MEDS: TAMSULOSIN 0.4 MG CAP PO SCH (08:13)
[2022-04-18] MEDS: DIMETHICONE 2% OINTMENT(VANICREAM) 70GM TUBE TOP SCH ×2 (08:13→21:04)
[2022-04-18] MEDS: INSULIN LISPRO (NovoLOG) PER UNIT SC SCH ×4 (08:14→21:00)
[2022-04-18] MEDS: ENOXAPARIN 40MG/0.4ML SYRINGE (J1650 PER 10MG) SC SCH (08:14)
[2022-04-18] MEDS: ATORVASTATIN 20 MG TAB PO SCH (21:02)
[2022-04-18] MEDS: ACETAMINOPHEN TAB 650MG DOSE (2X325MG) PO PRN (21:04)
[2022-04-19 06:00] VITALS: BP 169/60
[2022-04-19] MEDS: ENOXAPARIN 40MG/0.4ML SYRINGE (J1650 PER 10MG) SC SCH (09:00)
[2022-04-19] MEDS: ASPIRIN 81MG ENTERIC TABLET PO SCH (09:20)
[2022-04-19] MEDS: TAMSULOSIN 0.4 MG CAP PO SCH (09:20)
[2022-04-19] MEDS: GABAPENTIN 300 MG CAP PO SCH ×4 (09:20→20:36)
[2022-04-19] MEDS: INSULIN LISPRO (NovoLOG) PER UNIT SC SCH ×4 (09:20→20:37)
[2022-04-19] MEDS: LEVEMIR (INSULIN DETEMIR) 1 UNITS/0.01ML SC SCH ×2 (09:20→20:38)
[2022-04-19] MEDS: NYSTATIN 100,000 UNITS/GM TOPICAL PWD 15 GM TOP SCH ×2 (09:21→20:38)
[2022-04-19] MEDS: DIMETHICONE 2% OINTMENT(VANICREAM) 70GM TUBE TOP SCH ×2 (09:21→20:38)
[2022-04-19 10:50] VITALS: BP 157/68
[2022-04-19] MEDS: ATORVASTATIN 20 MG TAB PO SCH (20:36)
[2022-04-19] MEDS: ACETAMINOPHEN TAB 650MG DOSE (2X325MG) PO PRN (20:37)
[2022-04-20 06:00] VITALS: BP 148/71
[2022-04-20] MEDS: ENOXAPARIN 40MG/0.4ML SYRINGE (J1650 PER 10MG) SC SCH (09:00)
[2022-04-20] MEDS: INSULIN LISPRO (NovoLOG) PER UNIT SC SCH ×4 (09:34→21:00)
[2022-04-20] MEDS: LEVEMIR (INSULIN DETEMIR) 1 UNITS/0.01ML SC SCH ×2 (09:34→21:22)
[2022-04-20] MEDS: ASPIRIN 81MG ENTERIC TABLET PO SCH (09:35)
[2022-04-20] MEDS: TAMSULOSIN 0.4 MG CAP PO SCH (09:35)
[2022-04-20] MEDS: GABAPENTIN 300 MG CAP PO SCH ×4 (09:35→21:22)
[2022-04-20] MEDS: NYSTATIN 100,000 UNITS/GM TOPICAL PWD 15 GM TOP SCH ×2 (09:36→21:23)
[2022-04-20] MEDS: DIMETHICONE 2% OINTMENT(VANICREAM) 70GM TUBE TOP SCH ×2 (09:36→21:23)
[2022-04-20 20:00] VITALS: BP 143/60
[2022-04-20] MEDS: ATORVASTATIN 20 MG TAB PO SCH (21:21)
[2022-04-20] MEDS: SENOKOT S TAB PO PRN (21:23)
[2022-04-20] MEDS: ACETAMINOPHEN TAB 650MG DOSE (2X325MG) PO PRN (21:24)
[2022-04-21 06:00] VITALS: BP 132/64
[2022-04-21] MEDS: INSULIN LISPRO (NovoLOG) PER UNIT SC SCH ×4 (07:30→20:59)
[2022-04-21] MEDS: ENOXAPARIN 40MG/0.4ML SYRINGE (J1650 PER 10MG) SC SCH (09:00)
[2022-04-21] MEDS: TAMSULOSIN 0.4 MG CAP PO SCH (09:10)
[2022-04-21] MEDS: GABAPENTIN 300 MG CAP PO SCH ×4 (09:10→20:59)
[2022-04-21] MEDS: ASPIRIN 81MG ENTERIC TABLET PO SCH (09:10)
[2022-04-21] MEDS: LEVEMIR (INSULIN DETEMIR) 1 UNITS/0.01ML SC SCH ×2 (09:11→21:00)
[2022-04-21] MEDS: NYSTATIN 100,000 UNITS/GM TOPICAL PWD 15 GM TOP SCH ×2 (09:14→21:00)
[2022-04-21] MEDS: DIMETHICONE 2% OINTMENT(VANICREAM) 70GM TUBE TOP SCH ×2 (09:14→21:00)
[2022-04-21] MEDS: ATORVASTATIN 20 MG TAB PO SCH (20:59)
[2022-04-22 06:00] VITALS: BP 138/64
[2022-04-22] MEDS: DIMETHICONE 2% OINTMENT(VANICREAM) 70GM TUBE TOP SCH ×2 (08:25→19:53)
[2022-04-22] MEDS: INSULIN LISPRO (NovoLOG) PER UNIT SC SCH ×4 (08:25→19:53)
[2022-04-22] MEDS: ASPIRIN 81MG ENTERIC TABLET PO SCH (08:26)
[2022-04-22] MEDS: LEVEMIR (INSULIN DETEMIR) 1 UNITS/0.01ML SC SCH ×2 (08:26→19:53)
[2022-04-22] MEDS: NYSTATIN 100,000 UNITS/GM TOPICAL PWD 15 GM TOP SCH ×2 (08:26→19:53)
[2022-04-22] MEDS: TAMSULOSIN 0.4 MG CAP PO SCH (08:27)
[2022-04-22] MEDS: ENOXAPARIN 40MG/0.4ML SYRINGE (J1650 PER 10MG) SC SCH (08:27)
[2022-04-22] MEDS: GABAPENTIN 300 MG CAP PO SCH ×4 (08:27→19:54)
[2022-04-22] MEDS: ATORVASTATIN 20 MG TAB PO SCH (19:54)
[2022-04-23 05:32] VITALS: BP 140/66
[2022-04-23] MEDS: GABAPENTIN 300 MG CAP PO SCH ×4 (08:07→19:54)
[2022-04-23] MEDS: ASPIRIN 81MG ENTERIC TABLET PO SCH (08:07)
[2022-04-23] MEDS: TAMSULOSIN 0.4 MG CAP PO SCH (08:07)
[2022-04-23] MEDS: INSULIN LISPRO (NovoLOG) PER UNIT SC SCH ×4 (08:08→19:56)
[2022-04-23] MEDS: LEVEMIR (INSULIN DETEMIR) 1 UNITS/0.01ML SC SCH ×2 (08:08→19:56)
[2022-04-23] MEDS: ENOXAPARIN 40MG/0.4ML SYRINGE (J1650 PER 10MG) SC SCH (08:09)
[2022-04-23] MEDS: DIMETHICONE 2% OINTMENT(VANICREAM) 70GM TUBE TOP SCH ×2 (08:09→19:56)
[2022-04-23] MEDS: NYSTATIN 100,000 UNITS/GM TOPICAL PWD 15 GM TOP SCH ×2 (08:09→19:55)
[2022-04-23] MEDS: ATORVASTATIN 20 MG TAB PO SCH (19:54)
[2022-04-24] MEDS: GABAPENTIN 300 MG CAP PO SCH ×4 (08:34→20:34)
[2022-04-24] MEDS: ASPIRIN 81MG ENTERIC TABLET PO SCH (08:34)
[2022-04-24] MEDS: TAMSULOSIN 0.4 MG CAP PO SCH (08:34)
[2022-04-24] MEDS: INSULIN LISPRO (NovoLOG) PER UNIT SC SCH ×4 (08:37→20:36)
[2022-04-24] MEDS: LEVEMIR (INSULIN DETEMIR) 1 UNITS/0.01ML SC SCH ×2 (08:37→20:35)
[2022-04-24] MEDS: DIMETHICONE 2% OINTMENT(VANICREAM) 70GM TUBE TOP SCH ×2 (08:38→20:36)
[2022-04-24] MEDS: NYSTATIN 100,000 UNITS/GM TOPICAL PWD 15 GM TOP SCH ×2 (08:38→20:36)
[2022-04-24] MEDS: ENOXAPARIN 40MG/0.4ML SYRINGE (J1650 PER 10MG) SC SCH (08:38)
[2022-04-24] MEDS: metFORMIN (GLUCOPHAGE) 1000MG TABLET PO SCH (17:30)
[2022-04-24] MEDS: ATORVASTATIN 20 MG TAB PO SCH (20:34)
[2022-04-25 06:00] VITALS: BP 129/75
[2022-04-25] MEDS: TAMSULOSIN 0.4 MG CAP PO SCH (08:27)
[2022-04-25] MEDS: GABAPENTIN 300 MG CAP PO SCH ×4 (08:27→20:33)
[2022-04-25] MEDS: metFORMIN (GLUCOPHAGE) 1000MG TABLET PO SCH ×2 (08:27→17:04)
[2022-04-25] MEDS: ASPIRIN 81MG ENTERIC TABLET PO SCH (08:27)
[2022-04-25] MEDS: LEVEMIR (INSULIN DETEMIR) 1 UNITS/0.01ML SC SCH ×2 (08:32→20:34)
[2022-04-25] MEDS: INSULIN LISPRO (NovoLOG) PER UNIT SC SCH ×4 (08:32→20:21)
[2022-04-25] MEDS: NYSTATIN 100,000 UNITS/GM TOPICAL PWD 15 GM TOP SCH ×2 (08:33→20:32)
[2022-04-25] MEDS: DIMETHICONE 2% OINTMENT(VANICREAM) 70GM TUBE TOP SCH ×2 (08:33→20:32)
[2022-04-25] MEDS: ENOXAPARIN 40MG/0.4ML SYRINGE (J1650 PER 10MG) SC SCH (08:34)
[2022-04-25] MEDS: ATORVASTATIN 20 MG TAB PO SCH (20:33)
[2022-04-26 05:27] VITALS: BP 146/68
[2022-04-26] MEDS: ASPIRIN 81MG ENTERIC TABLET PO SCH (08:55)
[2022-04-26] MEDS: metFORMIN (GLUCOPHAGE) 1000MG TABLET PO SCH ×2 (08:55→17:11)
[2022-04-26] MEDS: TAMSULOSIN 0.4 MG CAP PO SCH (08:57)
[2022-04-26] MEDS: LEVEMIR (INSULIN DETEMIR) 1 UNITS/0.01ML SC SCH ×2 (08:57→20:47)
[2022-04-26] MEDS: GABAPENTIN 300 MG CAP PO SCH ×4 (08:57→20:45)
[2022-04-26] MEDS: INSULIN LISPRO (NovoLOG) PER UNIT SC SCH ×4 (08:57→20:47)
[2022-04-26] MEDS: DIMETHICONE 2% OINTMENT(VANICREAM) 70GM TUBE TOP SCH ×2 (08:58→20:49)
[2022-04-26] MEDS: NYSTATIN 100,000 UNITS/GM TOPICAL PWD 15 GM TOP SCH ×2 (08:58→20:48)
[2022-04-26] MEDS: ENOXAPARIN 40MG/0.4ML SYRINGE (J1650 PER 10MG) SC SCH (09:00)
[2022-04-26] MEDS: ATORVASTATIN 20 MG TAB PO SCH (20:46)
[2022-04-27 05:34] VITALS: BP 151/66
[2022-04-27] MEDS: INSULIN LISPRO (NovoLOG) PER UNIT SC SCH ×4 (08:38→21:00)
[2022-04-27] MEDS: ENOXAPARIN 40MG/0.4ML SYRINGE (J1650 PER 10MG) SC SCH (09:00)
[2022-04-27] MEDS: ASPIRIN 81MG ENTERIC TABLET PO SCH (09:35)
[2022-04-27] MEDS: TAMSULOSIN 0.4 MG CAP PO SCH (09:36)
[2022-04-27] MEDS: metFORMIN (GLUCOPHAGE) 1000MG TABLET PO SCH ×2 (09:36→16:57)
[2022-04-27] MEDS: GABAPENTIN 300 MG CAP PO SCH ×4 (09:36→21:00)
[2022-04-27] MEDS: DIMETHICONE 2% OINTMENT(VANICREAM) 70GM TUBE TOP SCH ×2 (09:37→21:00)
[2022-04-27] MEDS: NYSTATIN 100,000 UNITS/GM TOPICAL PWD 15 GM TOP SCH ×2 (09:37→21:00)
[2022-04-27] MEDS: LEVEMIR (INSULIN DETEMIR) 1 UNITS/0.01ML SC SCH ×2 (09:40→21:00)
[2022-04-27] MEDS: ATORVASTATIN 20 MG TAB PO SCH (21:00)
[2022-04-28 06:00] VITALS: BP 153/71
[2022-04-28] MEDS: TAMSULOSIN 0.4 MG CAP PO SCH (08:47)
[2022-04-28] MEDS: metFORMIN (GLUCOPHAGE) 1000MG TABLET PO SCH ×2 (08:47→17:41)
[2022-04-28] MEDS: ASPIRIN 81MG ENTERIC TABLET PO SCH (08:47)
[2022-04-28] MEDS: GABAPENTIN 300 MG CAP PO SCH ×4 (08:47→22:02)
[2022-04-28] MEDS: LEVEMIR (INSULIN DETEMIR) 1 UNITS/0.01ML SC SCH ×2 (08:48→21:00)
[2022-04-28] MEDS: INSULIN LISPRO (NovoLOG) PER UNIT SC SCH ×4 (08:49→21:00)
[2022-04-28] MEDS: NYSTATIN 100,000 UNITS/GM TOPICAL PWD 15 GM TOP SCH ×2 (08:49→22:02)
[2022-04-28] MEDS: DIMETHICONE 2% OINTMENT(VANICREAM) 70GM TUBE TOP SCH ×2 (08:50→22:02)
[2022-04-28] MEDS: ENOXAPARIN 40MG/0.4ML SYRINGE (J1650 PER 10MG) SC SCH (08:50)
[2022-04-28] MEDS: ATORVASTATIN 20 MG TAB PO SCH (22:02)
[2022-04-29 06:00] VITALS: BP 153/71
[2022-04-29] MEDS: ASPIRIN 81MG ENTERIC TABLET PO SCH (08:23)
[2022-04-29] MEDS: TAMSULOSIN 0.4 MG CAP PO SCH (08:23)
[2022-04-29] MEDS: metFORMIN (GLUCOPHAGE) 1000MG TABLET PO SCH ×2 (08:23→17:51)
[2022-04-29] MEDS: LEVEMIR (INSULIN DETEMIR) 1 UNITS/0.01ML SC SCH ×2 (08:24→21:00)
[2022-04-29] MEDS: GABAPENTIN 300 MG CAP PO SCH ×4 (08:26→22:43)
[2022-04-29] MEDS: ENOXAPARIN 40MG/0.4ML SYRINGE (J1650 PER 10MG) SC SCH (08:26)
[2022-04-29] MEDS: INSULIN LISPRO (NovoLOG) PER UNIT SC SCH ×4 (08:26→20:37)
[2022-04-29] MEDS: NYSTATIN 100,000 UNITS/GM TOPICAL PWD 15 GM TOP SCH ×2 (08:27→22:43)
[2022-04-29] MEDS: DIMETHICONE 2% OINTMENT(VANICREAM) 70GM TUBE TOP SCH ×2 (08:27→22:44)
[2022-04-29] MEDS ORDERED: LEVEMIR (INSULIN DETEMIR) 1 UNITS/0.01ML SC ONE (22:00)
[2022-04-29] MEDS: ATORVASTATIN 20 MG TAB PO SCH (22:43)
[2022-04-30 06:00] VITALS: BP 148/68
[2022-04-30] MEDS: LEVEMIR (INSULIN DETEMIR) 1 UNITS/0.01ML SC SCH ×2 (08:15→21:50)
[2022-04-30] MEDS: ENOXAPARIN 40MG/0.4ML SYRINGE (J1650 PER 10MG) SC SCH (08:16)
[2022-04-30] MEDS: GABAPENTIN 300 MG CAP PO SCH ×4 (08:26→21:49)
[2022-04-30] MEDS: TAMSULOSIN 0.4 MG CAP PO SCH (08:26)
[2022-04-30] MEDS: metFORMIN (GLUCOPHAGE) 1000MG TABLET PO SCH ×2 (08:26→17:30)
[2022-04-30] MEDS: INSULIN LISPRO (NovoLOG) PER UNIT SC SCH ×4 (08:27→21:00)
[2022-04-30] MEDS: ASPIRIN 81MG ENTERIC TABLET PO SCH (08:27)
[2022-04-30] MEDS: DIMETHICONE 2% OINTMENT(VANICREAM) 70GM TUBE TOP SCH ×2 (08:28→21:50)
[2022-04-30] MEDS: NYSTATIN 100,000 UNITS/GM TOPICAL PWD 15 GM TOP SCH ×2 (08:28→21:51)
[2022-04-30] MEDS: ATORVASTATIN 20 MG TAB PO SCH (21:49)
[2022-05-01 06:00] VITALS: BP 146/66
[2022-05-01] MEDS: INSULIN LISPRO (NovoLOG) PER UNIT SC SCH ×4 (07:30→19:48)
[2022-05-01] MEDS: NYSTATIN 100,000 UNITS/GM TOPICAL PWD 15 GM TOP SCH ×2 (09:00→20:01)
[2022-05-01] MEDS: ENOXAPARIN 40MG/0.4ML SYRINGE (J1650 PER 10MG) SC SCH (09:00)
[2022-05-01] MEDS: LEVEMIR (INSULIN DETEMIR) 1 UNITS/0.01ML SC SCH ×2 (09:00→20:01)
[2022-05-01] MEDS: GABAPENTIN 300 MG CAP PO SCH ×4 (09:08→20:00)
[2022-05-01] MEDS: TAMSULOSIN 0.4 MG CAP PO SCH (09:08)
[2022-05-01] MEDS: ASPIRIN 81MG ENTERIC TABLET PO SCH (09:09)
[2022-05-01] MEDS: metFORMIN (GLUCOPHAGE) 1000MG TABLET PO SCH ×2 (09:09→18:01)
[2022-05-01] MEDS: DIMETHICONE 2% OINTMENT(VANICREAM) 70GM TUBE TOP SCH ×2 (09:31→20:01)
[2022-05-01] MEDS ORDERED: INSUDET SC (17:41)
[2022-05-01] MEDS ORDERED: Dimethicone TOP (17:41)
[2022-05-01] MEDS ORDERED: SENN-52 PO (17:41)
[2022-05-01] MEDS ORDERED: INSUHUMDS SC ×2 (17:41)
[2022-05-01] MEDS ORDERED: NYST10006 TOP (17:41)
[2022-05-01] MEDS ORDERED: ACET1TAB55 PO (17:41)
[2022-05-01] MEDS ORDERED: MOM30SS2 PO (17:41)
[2022-05-01] MEDS: ATORVASTATIN 20 MG TAB PO SCH (20:00)
[2022-05-02 06:00] VITALS: BP 145/63
[2022-05-02] MEDS: INSULIN LISPRO (NovoLOG) PER UNIT SC SCH ×2 (07:30→12:00)
[2022-05-02] MEDS: LEVEMIR (INSULIN DETEMIR) 1 UNITS/0.01ML SC SCH (09:00)
[2022-05-02] MEDS: DIMETHICONE 2% OINTMENT(VANICREAM) 70GM TUBE TOP SCH (09:56)
[2022-05-02] MEDS: NYSTATIN 100,000 UNITS/GM TOPICAL PWD 15 GM TOP SCH (09:56)
[2022-05-02] MEDS: ASPIRIN 81MG ENTERIC TABLET PO SCH (09:57)
[2022-05-02] MEDS: GABAPENTIN 300 MG CAP PO SCH ×2 (09:57→13:08)
[2022-05-02] MEDS: TAMSULOSIN 0.4 MG CAP PO SCH (09:58)
[2022-05-02] MEDS: metFORMIN (GLUCOPHAGE) 1000MG TABLET PO SCH (09:58)
[2022-05-02 09:59] VITALS: BP 157/64
[2022-05-02] MEDS: ENOXAPARIN 40MG/0.4ML SYRINGE (J1650 PER 10MG) SC SCH (10:00)
== END 2022-05-02 13:14 | DRG 592 ==
LOC: M ED 13:27 → EDBD 13:27 → M ED INP 17:25 → ENRESERV 20:25 → M MSPAV 21:20
PROVIDERS: ADMIT Internal Medicine; ATTEND Internal Medicine
DX: L89.152 Pressure ulcer of sacral region, stage 2 (principal); U07.1 COVID-19; E11.51 Type 2 diabetes mellitus with diabetic peripheral angiopathy without gangrene; E78.5 Hyperlipidemia, unspecified; G89.29 Other chronic pain; M62.81 Muscle weakness (generalized); R26.81 Unsteadiness on feet; R53.81 Other malaise; R29.6 Repeated falls; E11.65 Type 2 diabetes mellitus with hyperglycemia; E11.40 Type 2 diabetes mellitus with diabetic neuropathy, unspecified; I10 Essential (primary) hypertension; K76.9 Liver disease, unspecified; N40.0 Benign prostatic hyperplasia without lower urinary tract symptoms; Z86.73 Personal history of transient ischemic attack (TIA), and cerebral infarction without residual deficits; Z89.611 Acquired absence of right leg above knee; R21 Rash and other nonspecific skin eruption; Z88.6 Allergy status to analgesic agent; Z91.018 Allergy to other foods; Z79.82 Long term (current) use of aspirin; Z79.899 Other long term (current) drug therapy; F43.10 Post-traumatic stress disorder, unspecified; G47.00 Insomnia, unspecified; F17.200 Nicotine dependence, unspecified, uncomplicated